=== PATIENT | female | born 1940 | race Caucasian/White ===

== ENCOUNTER 2022-09-03 13:34 | Outpatient (OUT) | payer MEDICARE, OTHER, SELFPAY ==
[2022-09-03 14:23] LABS: Sodium Urine Random 97 mmol/L (30-90)
[2022-09-04 14:09] LABS: ACTH, Plasma 9.6 pg/mL (7.2-63.3)
[2022-09-10 04:12] LABS: Osmolality, Urine 423 mOsmol/kg (.)
== END 2022-09-03 13:35 ==
LOC: LAB 13:45
PROVIDERS: PCP Nurse Practitioner; Visit Provider Nurse Practitioner
DX: E87.1 Hypo-osmolality and hyponatremia (principal)
CPT/HCPCS: 36415; 82024; 82533; 83935; 84300

== ENCOUNTER 2022-10-03 07:17 | Outpatient (OUT) | payer MEDICARE, OTHER, SELFPAY ==
[2022-10-03 07:50] LABS: Anion Gap 15.5; BUN Creatinine Ratio 30.7; Calcium 9.5 mg/dL (8.5-10.1); Carbon Dioxide 23.8 mmol/L (21.0-32.0); Chloride 101 mmol/L (98-107); Estimated GFR (African America >60 (>=60); Estimated GFR (Non-African Ame >60 (>=60); Glucose 149 mg/dL (74-106); Potassium 4.3 mmol/L (3.5-5.1); Sodium 136 mmol/L (136-145)
--- NOTE | 2022-10-03 09:04 | CT_ITS ---
[address] [address] Patient Name: JAMARI ELIZALDE MRN: [id number] date: 1940 Sex: F Assigned Patient Location: LAB Current Patient Location: LAB Accession/Order Number: [id number] Exam Date: 10/03/2022 10:55 Report Date: 10/03/2022 18:24 At the request of: SYEDA CLEMENTE Procedure: CT abdomen w con CT abdomen w con CLINICAL HISTORY: WEIGHT LOSS UNINTENTIONAL R63.4 COMPARISON: 01/16/2022. TECHNIQUE: Axial CT from lung bases through the pubic symphysis following the injection of 100 mL of Omnipaque 300 iodinated contrast material. Oral contrast was administered. Coronal and sagittal reconstructions generated. Dose reduction techniques were achieved by using automated exposure control and/or adjustment of mA and/or kV according to patient size and/or use of iterative reconstruction technique. FINDINGS: Normal heart size with coronary artery calcifications. Large periesophageal hernia. Liver and spleen normal in size. The caudate lobe cyst of the liver is stable and benign. Normal sized right adrenal gland. Left adrenal adenoma is unchanged from prior. Contracted gallbladder with suspect tiny stones and/or sludge but no surrounding inflammation seen. Normal pancreatic enhancement with no peripancreatic edema. A few tiny renal cysts. Symmetric bilateral renal excretion of contrast without hydronephrosis. Atherosclerotic aorta without aneurysm. No adenopathy. GI tract nondilated without obstruction. Moderate to large retained stool throughout much of the colon. No significant inflammatory change or ascites. Hysterectomy. Ribeiro catheter decompresses urinary bladder. Lumbar spondylosis without acute bony process. IMPRESSION: Prominent retained stool in much of the colon. No bowel obstruction or free air. No significant inflammatory change. Large periesophageal hernia. Contracted gallbladder with tiny stones and/or sludge. Unchanged left adrenal nodule probable adenoma. Hysterectomy. Ribeiro catheter in the bladder. Electronically authenticated by: STEVE MARTINO Date: 10/03/2022 18:24
--- NOTE | 2022-10-03 09:04 | CT_ITS ---
The [address] [address] Patient Name: JAMARI ELIZALDE MRN: [id number] date: 1940 Sex: F Assigned Patient Location: LAB Current Patient Location: LAB Accession/Order Number: [id number] Exam Date: 10/03/2022 10:55 Report Date: 10/03/2022 18:16 At the request of: SYEDA CLEMENTE Procedure: CT chest w con CT chest w con CLINICAL HISTORY: Weight loss, unintentional. R63.4 COMPARISON: 01/16/2022 chest x-rays. TECHNIQUE: Axial CT images obtained from lung apices through lung bases, following intravenous administration of 100 mL of Omnipaque 300. Coronal and sagittal reconstructions performed. Dose reduction techniques were achieved by using automated exposure control and/or adjustment of mA and/or kV according to patient size and/or use of iterative reconstruction technique. FINDINGS: Lower thyroid unremarkable. No axillary adenopathy. Thoracic spondylosis without acute bony process. Visualized upper abdomen with cyst in the caudate lobe. Large retained stool in the left upper quadrant. Nodularity left adrenal gland similar to 2020. Large periesophageal hernia. Normal heart and great vessel sizes. Coronary artery calcifications. No pericardial effusion. No mediastinal or hilar adenopathy. Lungs with mild bronchiectasis at the bases and minimal interstitial thickening but no honeycombing. Findings are consistent with UIP/pulmonary fibrosis at this time. No pulmonary emphysema. No consolidation, effusion or dominant mass lesion. IMPRESSION: Minimal chronic interstitial change and scarring in the lungs with mild bronchiectasis but not consistent with UIP/pulmonary fibrosis. No dominant mass lesion or acute process. Large paraesophageal hernia. Electronically authenticated by: STEVE MARTINO Date: 10/03/2022 18:16
[2022-10-04 08:08] LABS: DHEA-Sulfate 49.5 ug/dL (13.9-142.8)
[2022-10-06 04:07] LABS: Aldosterone LCMS, Serum 4.7 ng/dL (0.0-30.0)
[2022-10-08 14:09] LABS: DHEA, Serum 67 ng/dL (21-402)
[2022-10-18 16:07] LABS: Renin Activity, Plasma 1.497 ng/mL/hr (0.167-5.380)
== END 2022-10-03 07:18 | disposition home or self-care (01) ==
LOC: LAB 07:17
PROVIDERS: PCP Nurse Practitioner; Visit Provider Nurse Practitioner
DX: R63.4 Abnormal weight loss (principal); E87.1 Hypo-osmolality and hyponatremia; K59.00 Constipation, unspecified; K44.9 Diaphragmatic hernia without obstruction or gangrene; K80.20 Calculus of gallbladder without cholecystitis without obstruction; E27.9 Disorder of adrenal gland, unspecified; Z90.710 Acquired absence of both cervix and uterus; Z96.0 Presence of urogenital implants
CPT/HCPCS: 36415; 71260; 74160; 80048; 82088; 82533; 82626; 82627; 84244; Q9967

== ENCOUNTER 2023-02-22 08:51 | Outpatient (OUT) | payer MEDICARE, OTHER, SELFPAY ==
--- NOTE | 2023-02-22 09:21 | MM_ITS ---
Patient Name: JAMARI ELIZALDE MR#: [id number] : 1940 Exam Date: 02/22/2023 Ordering Doctor: JIM Tobar CNP RADIOLOGY REPORT PROCEDURE: MM TOMOSYNTHESIS SCREENING BI COMPARISON: MG MAMM SCREEN 3D CATRACHITO CAD, 10/29/2021. MG MAMM SCREEN CATRACHITO W CAD, 09/20/2019. MG MAMM SCREEN CATRACHITO W CAD, 03/02/2017. MG MAMM CATRACHITO SCRN W CAD DIG, 10/31/2012. INDICATIONS: Screening Calculator Name NCI Breast Cancer Risk Assessment Tool 5 Year Breast Cancer Risk 4.10% Lifetime Breast Cancer Risk 5.90% Personal Breast Cancer No Personal Ovarian Cancer No Treatments None Family Cancers Mother with breast cancer at age 70. LOCATION: [facility] BREAST COMPOSITION: Heterogeneously dense,which may obscure small masses. FINDINGS: DIAGNOSTIC CATEGORY 2--BENIGN FINDING: RIGHT BREAST: No significant suspicious finding. Scattered benign-appearing calcifications are present. No significant change has occurred. LEFT BREAST: No significant suspicious finding. Scattered benign-appearing calcifications are present. Stable, chronic asymmetries upper outer quadrant. No significant change has occurred. RECOMMENDATIONS: ROUTINE MAMMOGRAM AND CLINICAL EVALUATION IN 12 MONTHS. PLEASE NOTE: A NORMAL MAMMOGRAM DOES NOT EXCLUDE THE POSSIBILITY OF BREAST CANCER. A CLINICALLY SUSPICIOUS PALPABLE LUMP SHOULD BE BIOPSIED. Dictated by: Ankit Malloy M.D. on 02/22/2023 at 14:29 Approved by: Ankit Malloy M.D. on 02/22/2023 at 14:32
[2023-02-22 09:27] LABS: Alanine Aminotransferase 20 U/L (14-59); Albumin Level 3.9 g/dL (3.4-5.0); Alkaline Phosphatase 136 U/L (46-116); Anion Gap 15.1; Aspartate Amino Transferase 11 U/L (15-37); BUN Creatinine Ratio 28.6; Bilirubin Direct 0.1 mg/dL (0.0-0.2); Bilirubin Total 0.4 mg/dL (0.2-1.0); Carbon Dioxide 26.3 mmol/L (21.0-32.0); Chloride 102 mmol/L (98-107); Chol HDL Ratio 3.8; Cholesterol 280 mg/dL (<=200); Estimated GFR (African America >60 (>=60); Estimated GFR (Non-African Ame >60 (>=60); Globulin 4.1 g/dL; Glucose 147 mg/dL (74-106); HDL Cholesterol 73 mg/dL (40-60); Potassium 4.4 mmol/L (3.5-5.1); Sodium 139 mmol/L (136-145); Triglycerides 158 mg/dL (<=150); VLDL CHOLESTEROL 31.6 mg/dL
[2023-02-22 09:31] LABS: Estimated Average Glucose 140 mg/dL; Glycohemoglobin A1C 6.5 % (4.5-6.2)
== END 2023-02-22 08:52 | disposition home or self-care (01) ==
LOC: LAB 08:51
PROVIDERS: PCP Nurse Practitioner; Visit Provider Nurse Practitioner
DX: E78.5 Hyperlipidemia, unspecified (principal); E11.9 Type 2 diabetes mellitus without complications; Z12.31 Encounter for screening mammogram for malignant neoplasm of breast; Z80.3 Family history of malignant neoplasm of breast
CPT/HCPCS: 36415; 77063; 77067; 80048; 80061; 80076; 83036

== ENCOUNTER 2023-06-13 11:48 | Inpatient (IN) | payer MEDICARE, OTHER, SELFPAY ==
[2023-06-13] VITALS (19 sets, daily range): BP systolic 129–150; BP diastolic 65–82; PULSE 98–109; RESP 18–26; TEMP 36.2–36.4; O2SAT 85–96; BMI 24.9; BMI 25.2
--- NOTE | 2023-06-13 11:54 | ECG_ITS ---
The [facility] Test Date: 2023-06-13 Pat Name: JAMARI ELIZALDE Department: Room: - Gender: Female [employer]: : 1940 Requested By: SYEDA CLEMENTE Order Number: [id number] Reading MD: MARILYN THOMPSON Measurements Intervals [place] Rate: 110 P: 53 MO: 178 QRS: 103 QRSD: 74 T: 67 QT: 326 QTc: 391 Interpretive Statements 1120 Sinus tachycardia [address] depression [address] & Tw[place] abnormality, can't exclude inferolateral ischemia 7100 Abnormal right axis deviation 9140 abnormal rhythm ECG Electronically Signed On 06-13-2023 17:27:18 EDT by MARILYN THOMPSON
--- NOTE | 2023-06-13 11:54 | ED_ITS ---
HPI - General Adult General Chief complaint: Shortness of Breath/Dyspnea Stated complaint: SOB Time Seen by Provider: 06/13/23 11:50 History of Present Illness HPI narrative: 83-year-old female presents for shortness of breath. She states that during the night her mid back was hurting and she took an Aleve and that went away but then she was short of breath. Paramedics brought her in and they placed her on oxygen and she felt better. She is not complaining of chest pain or ankle s welling. Related Data Home Medications Medication Instructions Recorded Confirmed amantadine HCl 100 mg capsule mg 06/13/23 amlodipine 2.5 mg tablet mg 06/13/23 aripiprazole 2 mg tablet mg 06/13/23 benztropine 0.5 mg tablet mg 06/13/23 biotin 1 mg capsule 1 mg PO DAILY 06/13/23 06/13/23 ciprofloxacin HCl 250 mg tablet mg 06/13/23 dextroamphetamine-amphetamine 15 06/13/23 mg tablet lisinopril 20 mg tablet mg 06/13/23 lorazepam 0.5 mg tablet mg 06/13/23 metformin 500 mg tablet,extended mg PO 06/13/23 release 24 hr trazodone 150 mg tablet mg 06/13/23 Allergies Allergy/AdvReac Type Severity Reaction Status Date / Time No Known Drug Allergies Allergy Verified 06/13/23 12:00 Review of Systems ROS Narrative A ten point review of systems is negative except as noted above. Exam Narrative Exam Narrative: Nurses note and vital signs reviewed and patient is not hypoxic. General: The patient appears in no apparent distress. Patient is resting comfortably on cart. Skin: Warm, dry, no pallor noted. There is no rash noted. Head: Normocephalic, atraumatic Eye: Normal conjunctiva, no drainage Ears, Nose, Mouth, and Throat: oral mucosa is moist. Nares patent. Cardiovascular: Regular Rate and Rhythm Respiratory: Bilateral rales at the bases, breath sounds Back: non-tender GI: Soft and nontender Musculoskeletal: The patient has no evidence of calf tenderness, no pitting edema, symmetrical pulses noted bilaterally Neurological: A&O, normal speech Psychiatric: Cooperative Constitutional Vital Signs, click to edit/add: Last Vital Signs Temp 97.4 F L 06/13/23 11:50 Pulse 109 H 06/13/23 11:50 Resp 26 H 06/13/23 11:50 BP 150/82 H 06/13/23 11:50 Pulse Ox 95 06/13/23 11:50 O2 Del Method Room Air 06/13/23 11:50 Course Vital Signs Vital signs: Vital Signs Pulse Oximetry 85 L 06/13/23 10:55 Temperature 97.4 F L 06/13/23 11:50 Pulse Rate 109 H 06/13/23 11:50 Respiratory Rate 26 H 06/13/23 11:50 Blood Pressure 150/82 H 06/13/23 11:50 Pulse Oximetry 95 06/13/23 11:50 Oxygen Delivery Method Room Air 06/13/23 11:50 Medical Decision Making MDM Narrative Medical decision making narrative: Pneumonia is identified on the chest x-ray per radiologist. COVID and influenza testing are negative. White count is 14,000. Blood cultures are obtained. Calcitonin and lactic acid are pending. She was given IV Rocephin and Zithromax and is being admitted. Treatment diagnosis and disposition were discussed with the patient and her family. Differential Diagnosis Differential Diagnosis: Pneumonia, COVID, influenza Lab Data Lab results reviewed: Yes I reviewed the patient's lab results Labs: Lab Results 06/13/23 06/13/23 Range/Units 12:02 12:06 WBC 14.6 H (4.0-11.0) 10^3/uL RBC 4.45 (4.20-5.40) 10^6/uL Hgb 13.1 (12.0-16.0) g/dL Hct 42.0 (36.0-48.0) % MCV 94.4 (81.0-99.0) fL MCH 29.4 (26.7-34.0) pg MCHC 31.2 (29.9-35.2) g/dL RDW 14.6 (11.0-15.0) % Plt Count 324 (150-450) 10^3/uL MPV 8.6 L (9.5-13.5) fL Neut % (Auto) 85.9 H (43.0-75.0) % Lymph % (Auto) 8.2 L (20.5-60.0) % [place] % (Auto) 4.2 (1.7-12.0) % Eos % (Auto) 1.1 (0.9-7.0) % Baso % (Auto) 0.2 (0.2-2.0) % Neut # (Auto) 12.5 H (1.4-6.5) 10^3/uL Lymph # (Auto) 1.2 (1.2-3.8) 10^3/uL [place] # (Auto) 0.6 (0.3-0.8) 10^3/uL Eos # (Auto) 0.2 (0.0-0.7) 10^3/uL Baso # (Auto) 0.0 (0.0-0.1) 10^3/uL Abs Immat Gran (auto) 0.06 H (0.00-0.03) 10^3/uL Imm/Tot Granulo (auto) 0.4 (0.0-0.5) % Sodium 130 L (136-145) mmol/L Potassium 5.5 H (3.5-5.1) mmol/L Chloride 97 L (98-107) mmol/L Carbon Dioxide 25.0 (21.0-32.0) mmol/L Anion Gap 13.5 BUN 20.0 H (7.0-18.0) mg/dL Creatinine 0.93 (0.55-1.02) mg/dL Est GFR ( Amer) >60 (>=60) Est GFR (Non-Af Amer) 58 L (>=60) BUN/Creatinine Ratio 21.5 Glucose 257 H (74-106) mg/dL Calcium 8.8 (8.5-10.1) mg/dL Troponin I High Sens 34.1 (4.0-51.3) pg/mL NT-Pro-B Natriuret Pep 8894.0 H* (<=1800.0) pg/mL Influenza Type A Ag Negative Influenza Type B Ag Negative SARS-CoV-2 Ag (CV2AG) Negative (NEGATIVE) Imaging Data Chest x-ray: Radiologist's impression: ITS Impressions Chest X-Ray 06/13/23 11:54 Impression: Bilateral perihilar and lower lobes airspace opacities, likely representing multifocal/aspiration pneumonia. Electronically authenticated by: SUE BLOOD Date: 06/13/2023 12:47 ECG Data Attestation: I personally reviewed and interpreted this ECG as follows: (EKG on my interpretation shows sinus tachycardia with a rate of 110.) Discharge Plan Discharge Chief Complaint: Shortness of Breath/Dyspnea Clinical Impression: Pneumonia Patient Disposition: Admitted As Inpatient Time of Disposition Decision: 13:32 Condition: Good
--- NOTE | 2023-06-13 11:54 | XR_ITS ---
The [address] [address] Patient Name: JAMARI ELIZALDE MRN: [id number] date: 1940 Sex: F Assigned Patient Location: ER Current Patient Location: ER Accession/Order Number: [id number] Exam Date: 06/13/2023 12:05 Report Date: 06/13/2023 12:47 At the request of: YAZMIN GARCIA Procedure: XR chest 1V EXAM: XR chest 1V HISTORY: SOB COMPARISON: 10/03/2022 TECHNIQUE: Chest X-ray AP, 1 view FINDINGS: Support devices: None. Lungs/pleura: No pneumothorax. Bilateral perihilar and lower lobes airspace opacities, likely representing multifocal/aspiration pneumonia. Heart and mediastinum: Normal contours. Bones: No acute abnormality identified. Moderate hiatal hernia. XR/XR chest 1V Impression: Bilateral perihilar and lower lobes airspace opacities, likely representing multifocal/aspiration pneumonia. Electronically authenticated by: SUE BLOOD Date: 06/13/2023 12:47
--- OUTSIDE RECORDS SUMMARY | 2023-06-13 12:08 | XMS_ITS | CCD ---
Author Name Unknown Address [address] [place] [address] Organization [facility] Care Team Providers Care Music Supervisor Name Role Phone Pipe Sanchez Attending Provider Kilo Chavez Primary Care Provider [phone] Kilo Chavez II Primary Care Provider Kilo Chavez II Unavailable MARU Chavez Primary Care Provider MD Johann Dolan Attending Provider Unavailable Primary Care Provider Unavailabl e NO FAMILY, PHYSICIAN Primary Care Provider Unava MD Oz Rizvi Jr Emergency Provider BRENDA, CARY Referring Unavailable AHMED, IRFAN Referring Unavailable BRENDA, CARY Referring Unavailable BREDNA, CARY Referring Unavailable BRENDA, CARY Referring Unavailable BRENDA, CARY Referring Unavailable FOZIA TOBAR Primary Care Physician NO FAMILY, PHYSICIAN Primary Care Provider Unava MD Oz Rizvi Jr Emergency Provider MD Johann Dolan Attending Provider [phone] AICHHOLZ, LODGE SALES ASSOCIATE FOZIA Admitting Unavailable AICHHOLZ, LODGE SALES ASSOCIATE FOZIA Primary Care Unavailable AICHHOLZ, LODGE SALES ASSOCIATE FOZIA Attending Unavailable AICHHOLZ, LODGE SALES ASSOCIATE FOZIA Consulting Unavailable AICHHOLZ, LODGE SALES ASSOCIATE FOZIA Admitting Unavailable AICHHOLZ, LODGE SALES ASSOCIATE FOZIA Attending Unavailable AICHHOLZ, LODGE SALES ASSOCIATE FOZIA Consulting Unavailable AICHHOLZ, LODGE SALES ASSOCIATE FOZIA Primary Care Unavailable AICHHOLZ, LODGE SALES ASSOCIATE FOZIA Primary Care Unavailable SHAIKH Kurt PRICE Attending Unavailable SHAIKH Kurt PRICE Admitting Unavailable DR CECILY FRASER Consulting Unavailable ESTEBAN, DR LORETTA Dillard Consulting Unavailable LIBIA JACOB Consulting Unavailable LENA MARTINEZ Consulting Unavailable SHAIKH Kurt PRICE Consulting Unavailable JOHANN PARKS Consulting Unavailable SHAUNNA, DR DENIS Primary Care Unavailable SHAUNNA, DR DENIS Consulting Unavailable SHAUNNA, DR DENIS Attending Unavailable SHAUNNA, DR DENIS Admitting Unavailable DR ERIC BERRY Consulting Unavailable AICHHOLZ, LODGE SALES ASSOCIATE FOZIA Admitting Unavailable AICHHOLZ, LODGE SALES ASSOCIATE FOZIA Attending Unavailable AICHHOLZ, LODGE SALES ASSOCIATE FOZIA Consulting Unavailable AICHHOLZ, LODGE SALES ASSOCIATE FOZIA Primary Care Unavailable AICHHOLZ, LODGE SALES ASSOCIATE FOZIA Primary Care Unavailable AICHHOLZ, LODGE SALES ASSOCIATE FOZIA Attending Unavailable AICHHOLZ, LODGE SALES ASSOCIATE FOZIA Consulting Unavailable AICHHOLZ, LODGE SALES ASSOCIATE FOZIA Admitting Unavailable SANDYER, DR ERIC Valero Consulting Unavailable AICHHOLZ, LODGE SALES ASSOCIATE FOZIA Primary Care Unavailable AICHHOLZ, LODGE SALES ASSOCIATE FOZIA Consulting Unavailable AICHHOLZ, LODGE SALES ASSOCIATE FOZIA Attending Unavailable AICHHOLZ, LODGE SALES ASSOCIATE FOZIA Admitting Unavailable AICHHOLZ, LODGE SALES ASSOCIATE FOZIA Admitting Unavailable AICHHOLZ, LODGE SALES ASSOCIATE FOZIA Attending Unavailable AICHHOLZ, LODGE SALES ASSOCIATE FOZIA Referring Unavailable AICHHOLZ, LODGE SALES ASSOCIATE FOZIA Consulting Unavailable AICHHOLZ, LODGE SALES ASSOCIATE FOZIA Primary Care Unavailable ZIEBER, DR ERIC Valero Consulting Unavailable AICHHOLZ, LODGE SALES ASSOCIATE FOZIA Primary Care Unavailable AICHHOLZ, LODGE SALES ASSOCIATE FOZIA Consulting Unavailable AICHHOLZ, LODGE SALES ASSOCIATE FOZIA Attending Unavailable AICHHOLZ, LODGE SALES ASSOCIATE FOZIA Admitting Unavailable AICHHOLZ, LODGE SALES ASSOCIATE FOZIA Primary Care Unavailable AICHHOLZ, LODGE SALES ASSOCIATE FOZIA Consulting Unavailable AICHHOLZ, LODGE SALES ASSOCIATE FOZIA Attending Unavailable AICHHOLZ, LODGE SALES ASSOCIATE FOZIA Admitting Unavailable AICHHOLZ, LODGE SALES ASSOCIATE FOZIA Primary Care Unavailable ADDY MEHTA Attending Unavailable DR JOHANN DOLAN Consulting Unavailable ADDY MEHTA Admitting Unavailable AICHHOLZ, LODGE SALES ASSOCIATE FOZIA Primary Care Unavailable AICHHOLZ, LODGE SALES ASSOCIATE FOZIA Consulting Unavailable AICHHOLZ, LODGE SALES ASSOCIATE FOZIA Attending Unavailable AICHHOLZ, LODGE SALES ASSOCIATE FOZIA Admitting Unavailable AICHHOLZ, LODGE SALES ASSOCIATE FOZIA Primary Care Unavailable AICHHOLZ, LODGE SALES ASSOCIATE FOZIA Consulting Unavailable AICHHOLZ, LODGE SALES ASSOCIATE FOZIA Attending Unavailable AICHHOLZ, LODGE SALES ASSOCIATE FOZIA Admitting Unavailable AICHHOLZ, LODGE SALES ASSOCIATE FOZIA Primary Care Unavailable AICHHOLZ, LODGE SALES ASSOCIATE FOZIA Consulting Unavailable AICHHOLZ, LODGE SALES ASSOCIATE FOZIA Attending Unavailable AICHHOLZ, LODGE SALES ASSOCIATE FOZIA Admitting Unavailable DR ERIC BERRY Consulting Unavailable AICHHOLZ, LODGE SALES ASSOCIATE FOZIA Primary Care Unavailable AICHHOLZ, LODGE SALES ASSOCIATE FOZIA Consulting Unavailable AICHHOLZ, LODGE SALES ASSOCIATE FOZIA Attending Unavailable AICHHOLZ, LODGE SALES ASSOCIATE FOZIA Admitting Unavailable AICHHOLZ, LODGE SALES ASSOCIATE FOZIA Primary Care Unavailable AICHHOLZ, LODGE SALES ASSOCIATE FOZIA Attending Unavailable AICHHOLZ, LODGE SALES ASSOCIATE FOZIA Consulting Unavailable AICHHOLZ, LODGE SALES ASSOCIATE FOZIA Admitting Unavailable NO FAMILY, PHYSICIAN Primary Care Provider Unava MD Pipe Jenkins Attending Provider Moisesaimee, Fozia J Primary Care Provider Johann Dolan Admitting Unavailable NO FAMILY, PHYSICIAN Primary Care Unavailable Johann Dolan Attending Unavailable Johann Dolan Attending Unavailable Johann Dolan Admitting Unavailable Kilo Chavez Primary Care Unavailable Oz Beckford Jr Admitting Unavailable NO FAMILY, PHYSICIAN Primary Care Unavailable Oz Beckford Jr Attending Unavailable Pipe Sanchez Attending Unavailabl e Pipe Sanchez Admitting Unavailabl e Aichholz, Fozia J Primary Care Unavailable AICHHOLZ, FOZIA Attending Unavailable JEFF MEDELLIN Attending Unavailable LANDYSEBASTIÁN DAVEY Attending Unavailable Lue, Ivana MShilpa Attending Unavailable LANDYSEBASTIÁN Attending Unavailable Lue, Ivana MShilpa Attending Unavailable Jose Manuel SWAIN Attending Unavailable LANDYSEBASTIÁN Attending Unavailable Lue, Ivana M. Attending Unavailable LANDYSEBASTIÁN E Attending Unavailable LANDY, SEBASTIÁN E Attending Unavailable Lue, Ivana M. Attending Unavailable Lue, Ivana M. Attending Unavailable Lue, Ivana M. Attending Unavailable Lue, Ivana M. Attending Unavailable Lue, Ivana M. Referring Unavailable Lue, Ivana M. Admitting Unavailable Lue, Ivana M. Attending Unavailable Lue, Ivana M. Referring Unavailable Lue, Ivana M. Admitting Unavailable Lue, Ivana M. Attending Unavailable LANDYSEBASTIÁN DAVEY Attending Unavailable LANDYJOSESEBASTIÁN E Attending Unavailable LANDYJOSESEBASTIÁN E Attending Unavailable LANDY SEBASTIÁN E Attending Unavailable LANDY SEBASTIÁN E Attending Unavailable LANDY SEBASTIÁN E Attending Unavailable Ivana Hernandez Attending Unavailable Ivana Hernandez Attending Unavailable Allergies Allergy Classification Reported Allergen(s) Allergy Type Date of Onset Reaction(s) Facility (1 source) Adhesive agent Drug Allergy 9 [facility] (13 sources) Aspirin; 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: [aspirin] Drug Allergy 9 GI Upset, Gastritis (disorder) [facility] (1 source) Penicillins Drug Allergy 9 Rash [facility] (12 sources) Adhesive Tape; 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: [Tape] Drug allergy Blister - unit of product usage (qualifier value) [facility] (12 sources) Penicillin; 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: [penicillin] Drug Allergy Cutaneous eruption (morphologic abnormality) [facility] (1 source) No Known Medication Allergies; 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: [No Known Medication Allergies] Propensity to adverse reactions (disorder) [facility] Repository NEGATED: Highlighted row has been ruled out! (1 source) Drug allergy [facility] NEGATED: Highlighted row has been ruled out! (1 source) Drug allergy [facility] NEGATED: Highlighted row has been ruled out! (1 source) Drug allergy [facility] NEGATED: Highlighted row has been ruled out! (1 source) Drug allergy [facility] NEGATED: Highlighted row has been ruled out! (1 source) Drug allergy [facility] NEGATED: Highlighted row has been ruled out! (1 source) Drug allergy [facility] NEGATED: Highlighted row has been ruled out! (1 source) Drug allergy [facility] NEGATED: Highlighted row has been ruled out! (1 source) Drug allergy [facility] NEGATED: Highlighted row has been ruled out! (1 source) Drug allergy [facility] NEGATED: Highlighted row has been ruled out! (1 source) Drug allergy [facility] NEGATED: Highlighted row has been ruled out! (1 source) Drug allergy [facility] Medications Current Medications Medication Drug Class(es) Dates Sig (Normalized) Sig (Original) ALPRAZolam 0.5 mg oral tablet (16 sources) Benzodiazepine Start: 11-28-2020 take 0.5 mg by mouth three times daily Alprazolam Active 0.5 MG PO Three times daily November 28, 2020 12:00am Start: 02-06-2019 take 1 tablet by tho th twice daily as needed for anxiety alprazolam 0.25 mg Tab 0.25 mg = 1 tab(s), Oral, BID, PRN for anxiety, # 180 tab(s), Refills(s) 1, Pharmacy: [facility] Start Date: 02/06/19 Status: Ordered Comment on above: Take 0.5 mg by mouth three times daily as needed. amantadine hydrochloride 100 mg oral capsule (12 sources) Influenza A M2 Protein Inhibitor Start: 09-25-2022 take 100 mg by mouth once daily Amantadine Hcl Active 100 MG PO Daily September 25, 2022 12:00am Start: 07-01-2022 take 1 mg by mouth twice daily amantadine 100 mg Cap mg cap(s), Oral, BID, Refills(s) 0 Start Date: 07/01/22 Status: Ordered amLODIPine 2.5 mg oral tablet (16 sources) Dihydropyridine Calcium Channel Richy Start: 08-04-2018 Norvasc 2.5 mg Tab Refills(s) 0 Start Date: 08/04/18 Status: Ordered Comment on above: once daily. ARIPiprazole 2 mg oral tablet (12 sources) Atypical Antipsychotic Start: 07-01-2022 take 1 mg by mouth once daily Abilify 2 mg Tab mg tab(s), Oral, Daily, Refills(s) 0 Start Date: 07/01/22 Status: Ordered aspirin 81 mg chewable tablet (14 sources) Platelet Aggregation Inhibitor, Nonsteroidal Anti-inflammatory Drug Start: 07-01-2022 aspirin 81 mg Chew Tab mg tab(s), Chewed, Daily, Refills(s) 0 Start Date: 07/01/22 Status: Ordered Start: 06-02-2022 take 81 mg by mouth once daily Aspirin Active 81 MG PO Daily June 02, 2022 1:00am biotin 1 mg oral capsule (1 source) Start: 09-25-2022 take 1 mg by mouth once daily Biotin Active 1 MG PO Daily September 25, 2022 12:00am ciprofloxacin 250 mg oral tablet (8 sources) Quinolone Antimicrobial Start: 08-07-2022 take 1 tablet by mouth every month Cipro 250 mg Tab 250 mg = 1 tab(s), Oral, Once, Once a month, morning of ribeiro exchange, # 6 tab(s), Refills(s) 0, Pharmacy: [facility] [id number], 165, cm, 08/07/22 11:07:00 EDT, Height/Length Dosing, 68, kg, 08/07/22 11:07:00 EDT, Weight Dosing Start Date: 08/07/22 Status: Ordered Cranberry (12 sources) Non-Standardized Food Allergenic Extract, Non-Standardized Plant Allergenic Extract Start: 09-25-2022 take 400 mg by mouth once daily Cranberry Active 400 MG PO Daily September 25, 2022 12:00am administer with a meal Start: 07-01-2022 cranberry Refi ll(s) 0 Start Date: 07/01/22 Status: Ordered docusate sodium 100 mg oral tablet (13 sources) Start: 09-25-2022 take 100 mg by mouth twice daily Docusate Sodium Active 100 MG PO Twice daily September 25, 2022 12:00am Start: 07-01-2022 take 1 capsule by mo [facility] twice daily as needed for constipation docusate sodium 100 mg Cap 100 mg = 1 cap(s), Oral, BID, PRN for constipation, # 20 cap(s), Refills(s) 0 Start Date: 07/01/22 Status: Ordered take 1 tablet by tho th every twenty-four hours as needed Docusate Sodium 100 mg tab Take 1 tablet by mouth at bedtime as needed. 0 Active Comment on above: Take 1 tablet by tho th at bedtime as needed. glimepiride 1 mg oral tablet (14 sources) Sulfonylurea Start: 06-02-19 take 1 tablet by mouth once daily glimepiride 1 mg Tab mg tab(s), Oral, Daily, Refills(s) 0 Start Date: 07/01/22 Status: Ordered lidocaine 0.05 mg/mg medicated patch (12 sources) Antiarrhythmic, Amide Local Anesthetic Start: 09-26-19 apply 1 dose topically once daily Lidocaine Active 1 PATCH TOPICAL Daily September 25, 2022 12:00am leave on most painful area for up to 12 hrs Start: 07-01-2022 lidocaine 5% p atch Topical, Daily, Refill(s) 0 Start Date: 07/01/22 Status: Ordered lisinopril 20 mg oral tablet (16 sources) Angiotensin Converting Enzyme Inhibitor Start: 07-18-2018 lisinopril 20 mg Tab Refills(s) 0 Start Date: 08/04/18 Status: Ordered Comment on above: Take 20 mg by mouth once daily. LORazepam 0.5 mg oral tablet (11 sources) Benzodiazepine Start: 07-01-2022 take 2 tablets by mouth every eight hours Ativan 0.5 mg Tab mg tab(s), Oral, q8hr, Refills(s) 0 Start Date: 07/01/22 Status: Ordered melatonin 10 mg oral tablet (12 sources) Start: 07-01-2022 take 1 mg by mouth once daily at bedtime melatonin 10 mg oral tablet mg tab(s), Oral, Once a day (at bedtime), Refills(s) 0 Start Date: 07/01/22 Status: Ordered metFORMIN hydrochloride 500 mg oral tablet (16 sources) Biguanide Start: 07-01-2022 take 1 mg by mouth once daily metformin 500 mg ER Tab mg tab(s), Oral, Daily, Refills(s) 0 Start Date: 07/01/22 Status: Ordered Start: 08-07-2020 take 1000 mg by mouth once joselin ly Metformin Active 1000 MG PO Daily August 07, 2020 12:00am take 1 tablet by tho th once daily at breakfast metFORMIN ER (GLUMETZA) 500 mg 24 hr tablet Take 500 mg by mouth daily with breakfast. 0 Active Comment on above: Take 500 mg by mouth daily with breakfast. omeprazole 20 mg delayed release oral capsule (19 sources) Proton Pump Inhibitor Start: 06-02-2022 Omeprazole Active 20 MG PO As Directed June 02, 2022 1:00am 5pm Start: 07-14-2018 omeprazole 40 mg Cap-DR Refills(s) 0 Start Date: 08/04/18 Status: Ordered Comment on above: Take 40 mg by mouth once daily. ondansetron 4 mg oral tablet (12 sources) Serotonin-3 Receptor Antagonist Start: 09-25-2022 take 4 mg by mouth every six hours Ondansetron Hcl Active 4 MG PO Q6H September 25, 2022 12:00am Start: 07-01-2022 take 1 mg by mouth e very eight hours Zofran 4 mg Tab mg tab(s), Oral, q8hr, Refills(s) 0 Start Date: 07/01/22 Status: Ordered oxybutynin chloride 5 mg oral tablet (2 sources) Cholinergic Muscarinic Antagonist Start: 01-19-2023 take 1 tablet by mouth three times daily as needed oxybutynin 5 mg Tab 5 mg = 1 tab(s), Oral, TID, PRN for urinary discomfort, # 90 tab(s), Refills(s) 3, Pharmacy: [facility] [id number], 165, cm, 11/25/22 9:01:00 EDT, Height/Length Dosing, 68, kg, 11/25/22 9:01:00 EDT, Weight Dosing Start Date: 01/19/23 Status: Ordered sertraline 50 mg oral tablet (17 sources) Serotonin Reuptake Inhibitor Start: 09-25-2022 take 50 mg by mouth once daily Sertraline Active 50 MG PO Daily September 25, 2022 12:00am Start: 02-06-2019 sertraline 25 mg Tab 25 mg = 1 tab(s), Oral, Daily, total daily dose is 125mg, # 30 tab(s), Refills(s) 0, Pharmacy: [id number] Start Date: 02/06/19 Status: Ordered Start: 07-18-2018 End: 06-02-2022 take 100 mg by mouth once daily Sertraline Discontinued 100 MG PO Daily August 07, 2020 12:00am June 02, 2022 8:21pm Comment on above: Take 100 mg by mouth once daily. sodium chloride 1000 mg oral tablet (1 source) Start: 09-25-2022 take 1000 mg by mouth twice daily Sodium Chloride Active 1000 MG PO Twice daily September 25, 2022 12:00am traZODone hydrochloride 100 mg oral tablet (12 sources) Serotonin Reuptake Inhibitor Start: 07-01-2022 traZODONE 100 mg Tab mg tab(s), Oral, Refills(s) 0 Start Date: 07/01/22 Status: Ordered Completed/Discontinued Medications Medication Drug Class(es) Dates Sig (Normalized) Sig (Original) diclofenac sodium 0.01 mg/mg topical gel (1 source) Nonsteroidal Anti-inflammatory Drug Start: 05-29-2019 diclofenac sodium (VOLTAREN) 1 % topical gel Apply to affected area. 0 05/29/2019 Active Comment on above: Apply to affected ar ea. ferrous sulfate 325 mg oral tablet (5 sources) Start: 09-10-2020 End: 06-02-2022 take 325 mg by mouth once daily Ferrous Sulfate Discontinued 325 MG PO Daily September 10, 2020 12:00am June 02, 2022 8:21pm Comment on above: Take 325 mg by mouth daily with breakfast. ibuprofen 200 mg oral capsule (1 source) Nonsteroidal Anti-inflammatory Drug Ibuprofen 200 mg cap Take by mouth as needed. 0 Active Comment on above: Take by mouth as nee ded. naproxen sodium 220 mg oral capsule (1 source) Nonsteroidal Anti-inflammatory Drug naproxen sodium 220 mg cap Take by mouth as needed. 0 Active Comment on above: Take by mouth as nee ded. risperiDONE 1 mg oral tablet (15 sources) Atypical Antipsychotic Start: 06-02-2022 End: 09-25-2022 take 2 mg by mouth at bedtime Risperidone Discontinued 2 MG PO Bedtime June 02, 2022 1:00am September 25, 2022 7:33am Start: 08-04-2018 take 1-2 tablets by mouth at bedtime Risperdal 0.5 mg Tab See Instructions, 1-2 tabs po at bedtime, # 180 tab(s), Refills(s) 1, Pharmacy: [facility] Start Date: 02/06/19 Status: Ordered Comment on above: TAKE 1/2 (ONE-HALF) TO 1 (ONE) TABLET BY MOUTH AT BEDTIME vitamin e 450 mg oral capsule (5 sources) Start: 08-07-2020 End: 06-02-2022 take 1000 [IU] by mouth once daily Vitamin E Discontinued 1000 UNIT PO Daily August 07, 2020 12:00am June 02, 2022 8:21pm Comment on above: Take 1,000 Units by mouth once daily. Problems Active Problems Problem Classification Problem Date Documented Da te Episodic/Chronic Anxiety disorders (20 sources) Anxiety; 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: [Mild anxiety] Resolved: 09-01-2018 09-01-2018 Chronic Calculus of urinary tract (11 sources) Kidney stone 08-04-2018 Episodic Deficiency and other anemia (11 sources) Anemia 08-04-2018 Episodic Diabetes mellitus without complication (17 sources) Type 2 diabetes mellitus without complication; 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: [Type 2 diabetes mellitus without complications] Onset: 03-02-2022 Chronic Disorders of lipid metabolism (20 sources) Hypercholesterolemi a; 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: [Mixed hyperlipidemia] Resolved: 08-04-2018 08-04-2018 Chronic Esophageal disorders (11 sources) Esophageal erosions 10-11-2018 Chronic Essential hypertension (20 sources) Hypertensive disorder; 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: [Essential (primary) hypertension] Onset: 01-21-2022 08-04-2018 Chronic Fluid and electrolyte disorders (3 sources) Hypo-osmolality and hyponatremia; 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: [Hypo-osmolality and hyponatremia] Onset: 06-12-2022 Episodic Genitourinary symptoms and ill-defined conditions (20 sources) Urgent desire to urinate; 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: [Urgency of urination] Onset: 10-04-2018 10-04-2018 Episodic Menopausal disorders (1 source) Other primary ovarian failure; 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: [OTHER PRIMARY OVARIAN FAILURE] Onset: 11-01-2021 Chronic Mood disorders (16 sources) Depressive disorder; 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: [Depression] Onset: 06-22-2022 11-28-2020 Chronic Nausea and vomiting (2 sources) Nausea; 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: [Nausea] Onset: 06-09-2022 Episodic Osteoarthritis (20 sources) Arthritis 08-04-2018 Chronic Other aftercare (3 sources) Other detention (current) drug therapy; 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: [Other general manager in training (current) drug therapy] Onset: 06-10-2022 Episodic Other bone disease and musculoskeletal deformities (11 sources) Osteopenia 10-11-2018 Episodic Other RESIDENTIAL REAL ESTATE AGENT infection and poliomyelitis (13 sources) Late effects of poliomyelitis; 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] Onset: 10-04-2018 10-04-2018 Chronic Other diseases of bladder and urethra (3 sources) Neurogenic dysfunction of the urinary bladder; 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: [Neuromuscular dysfunction of bladder, unspecified] Onset: 07-01-2022 Chronic Other diseases of bladder and urethra (11 sources) Neurogenic bladder 06-24-2022 Chronic Other diseases of bladder and urethra (1 source) Flaccid neurogenic bladder; 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, not elsewhere classified] Onset: 11-25-2022 Chronic Other diseases of bladder and urethra (4 sources) Bladder muscle dysfunction - underactive 11-25-2022 Chronic Other endocrine disorders (2 sources) Disorder of adrenal gland; 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: [Other specified disorders of adrenal gland] Onset: 07-01-2022 Chronic Other gastrointestinal disorders (4 sources) Diarrhea; 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: [Diarrhea, unspecified] 08-08-2020 Episodic Other gastrointestinal disorders (20 sources) Adrenal mass 06-24-2022 Episodic Other hereditary and degenerative nervous system conditions (1 source) Motor neuron disease; 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: [Motor neuron disease, unspecified] Onset: 09-23-2018 09-23-2018 Chronic Other liver diseases (11 sources) Non-alcoholic fatty liver 09-01-2018 Chronic Other liver diseases (11 sources) Elevated liver enzymes level 08-04-2018 Episodic Other nervous system disorders (1 source) Spinal cord disease; 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: [Disease of spinal cord, unspecified] Onset: 10-04-2018 10-04-2018 Chronic Other nutritional; endocrine; and metabolic disorders (4 sources) Hypercalcemia; 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: [HYPERCALCEMIA] Onset: 06-19-2022 Chronic Other nutritional; endocrine; and metabolic disorders (1 source) Hypercalcemia; 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: [Hypercalcemia] Onset: 07-30-2022 Chronic Other nutritional; endocrine; and metabolic disorders (2 sources) Anorexia; 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: [Anorexia] Onset: 06-09-2022 Episodic Other nutritional; endocrine; and metabolic disorders (2 sources) Abnormal weight loss; 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: [Loss of weight] Onset: 09-02-2022 09-25-2022 Episodic Other nutritional; endocrine; and metabolic disorders (1 source) Weight loss; 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: [Abnormal weight loss] 09-25-2022 Episodic Other nutritional; endocrine; and metabolic disorders (1 source) Abnormal weight loss; 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: [Abnormal weight loss] Onset: 09-25-2022 Episodic Other screening for suspected conditions (not mental disorders or infectious disease) (5 sources) Abnormal results of liver function studies; 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: [Encounter for screening mammogram for malignant neoplasm of breast] Onset: 10-29-2021 Episodic Phlebitis; thrombophlebitis and thromboembolism (4 sources) 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; 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: [CHRON EMBO THROMBOSIS LT ILIAC VEIN] Onset: 02-25-2022 Chronic Residual codes; unclassified (1 source) Restlessness and agitation; 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: [Restlessness and agitation] Onset: 06-02-2022 Chronic Unclassified (1 source) CONTACT W/AND (SUSP) EXPOS COVID-19; 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: [CONTACT W/AND (SUSP) EXPOS COVID-19] Onset: 01-21-2022 Urinary tract infections (15 sources) Urinary tract infectious disease; 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: [Urinary tract infection, site not specified] Onset: 01-21-2022 Episodic Past or Other Problems Problem Classification Problem Date Documented Da te Episodic/Chronic Abdominal pain (4 sources) Unspecified abdominal pain; 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: [UNSPECIFIED ABDOMINAL PAIN] Onset: 01-16-2022 Episodic Gastroduodenal ulcer (except hemorrhage) (1 source) Personal history of peptic ulcer disease; 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: [PERSONAL HX PEPTIC ULCER DISEASE] Onset: 01-21-2022 Episodic Malaise and fatigue (1 source) Asthenia; 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: [Weakness] Onset: 05-05-2022 Episodic Other aftercare (1 source) penitentiary (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; 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: [RESIDENTIAL USE ORAL HYPOGLYCEMIC DX] Onset: 01-21-2022 Episodic Other aftercare (1 source) loss prevention agent (current) use of anticoagulants; 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: [RESIDENTIAL CURRNT USE ANTICOAGULANTS] Onset: 01-21-2022 Episodic Other bone disease and musculoskeletal deformities (1 source) Other specified disorders of bone density and structure, right thigh; 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: [OTH D/O BONE DEN STRUCT RT THIGH] Onset: 11-01-2021 Episodic Other connective tissue disease (1 source) Muscle weakness (generalized); 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: [MUSCLE WEAKNESS GENERALIZED] Onset: 02-04-2022 Episodic Other connective tissue disease (1 source) Pain in right leg; 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: [PAIN IN RIGHT LEG] Onset: 02-01-2022 Episodic Other liver diseases (5 sources) Abnormal levels of other serum enzymes; 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: [ABNORMAL LEVELS OTHER SERUM ENZYMES] Onset: 01-30-2022 Episodic Other nervous system disorders (1 source) Abnormal gait; 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: [Unspecified abnormalities of gait and mobility] Onset: 09-23-2018 09-23-2018 Episodic Other non-traumatic joint disorders (4 sources) Pain in left hip; 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: [PAIN IN LEFT HIP] Onset: 12-04-2021 Episodic Other non-traumatic joint disorders (1 source) Pain in right hip; 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: [PAIN IN RIGHT HIP] Onset: 12-05-2021 Episodic Other non-traumatic joint disorders (1 source) Pain in right knee; 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: [PAIN IN RIGHT KNEE] Onset: 12-05-2021 Episodic Other non-traumatic joint disorders (1 source) Pain in left knee; 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: [PAIN IN LEFT KNEE] Onset: 12-05-2021 Episodic Phlebitis; thrombophlebitis and thromboembolism (2 sources) Personal history of other venous thrombosis and embolism; 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: [Acute embolism and thrombosis of right femoral vein] Onset: 01-21-2022 Episodic Residual codes; unclassified (1 source) Family history of malignant neoplasm of breast; 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: [FAMILY HX MALIG NEOPLASM OF BREAST] Onset: 11-01-2021 Episodic Suicide and intentional self-inflicted injury (5 sources) Suicidal thoughts; 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: [Suicidal ideations] Onset: 06-02-2022 11-28-2020 Episodic Unclassified (11 sources) dm (qualifier value) 08-04-2018 Results Test Name Value Interpretation Reference Range Facility Retail - Clinical Noteon Retail - Clinical Note [id number]#1.00TIFF [facility] Ambulatory Visit Summaryon 0 05-11-2023 Ambulatory Visit Summary JAMARI ELIZALDE :1940 Visit Date:05/11/2023 Ambulatory Visit Instructions Your Care Team Attending Physician - SEBASTIÁN BILL PA-C Primary Care Physician - FOZIA TOBAR CNP This Is Your Medications List alprazolam (alprazolam 0.25 mg Tab) amantadine (amantadine 100 mg Cap) amlodipine (Norvasc 2.5 mg Tab) aripiprazole (Abilify 2 mg Tab) aspirin (aspirin 81 mg Chew Tab) ciprofloxacin (Cipro 250 mg Tab) cranberry docusate (docusate sodium 100 mg Cap) glimepiride (glimepiride 1 mg Tab) lidocaine topical (lidocaine 5% patch) lisinopril (lisinopril 20 mg Tab) lorazepam (Ativan 0.5 mg Tab) melatonin (melatonin 10 mg oral tablet) metformin (metformin 500 mg ER Tab) omeprazole (omeprazole 40 mg Cap-DR) ondansetron (Zofran 4 mg Tab) oxybutynin (oxybutynin 5 mg Tab) risperidone (Risperdal 0.5 mg Tab) sertraline (sertraline 25 mg Tab) trazodone (traZODONE 100 mg Tab) Procedures Performed Urodynamics (10/26/2022), Cystourethroscopy with dilation of urethral stricture (05/13/2012), Appendectomy, Arthroplasty of right shoulder, Bilateral cataracts, Colonoscopy, Hysterectomy, Tubal ligation. What to do next Scheduled Follow-Up Appointments Wednesday 1:00 PM EST Where: [facility] Retail - Clinical Noteon Retail - Clinical Note [id number]#[id number] [facility] Ambulatory Visit Summaryon 1 05-17-2022 Ambulatory Visit Summary JAMARI ELIZALDE :1940 Visit Date:03/16/2023 Ambulatory Visit Instructions Your Care Team Attending Physician - SEBASTIÁN BILL PA-C Primary Care Physician - FOZIA TOBAR CNP This Is Your Medications List alprazolam (alprazolam 0.25 mg Tab) amantadine (amantadine 100 mg Cap) amlodipine (Norvasc 2.5 mg Tab) aripiprazole (Abilify 2 mg Tab) aspirin (aspirin 81 mg Chew Tab) ciprofloxacin (Cipro 250 mg Tab) cranberry docusate (docusate sodium 100 mg Cap) glimepiride (glimepiride 1 mg Tab) lidocaine topical (lidocaine 5% patch) lisinopril (lisinopril 20 mg Tab) lorazepam (Ativan 0.5 mg Tab) melatonin (melatonin 10 mg oral tablet) metformin (metformin 500 mg ER Tab) omeprazole (omeprazole 40 mg Cap-DR) ondansetron (Zofran 4 mg Tab) oxybutynin (oxybutynin 5 mg Tab) risperidone (Risperdal 0.5 mg Tab) sertraline (sertraline 25 mg Tab) trazodone (traZODONE 100 mg Tab) Procedures Performed Urodynamics (10/26/2022), Cystourethroscopy with dilation of urethral stricture (05/13/2012), Appendectomy, Arthroplasty of right shoulder, Bilateral cataracts, Colonoscopy, Hysterectomy, Tubal ligation. What to do next Scheduled Follow-Up Appointments Wednesday 1:00 PM EST Where: [facility] Retail - Clinical Noteon Retail - Clinical Note [id number]#1.00TIFF [facility] Ambulatory Visit Summaryon 1 Ambulatory Visit Summary JAMARI ELIZALDE :1940 Visit Date:01/19/2023 Ambulatory Visit Instructions Your Care Team Attending Physician - ESBASTIÁN BILL PA-C Primary Care Physician - FOZIA TOBAR CNP This Is Your Medications List alprazolam (alprazolam 0.25 mg Tab) amantadine (amantadine 100 mg Cap) amlodipine (Norvasc 2.5 mg Tab) aripiprazole (Abilify 2 mg Tab) aspirin (aspirin 81 mg Chew Tab) ciprofloxacin (Cipro 250 mg Tab) cranberry docusate (docusate sodium 100 mg Cap) glimepiride (glimepiride 1 mg Tab) lidocaine topical (lidocaine 5% patch) lisinopril (lisinopril 20 mg Tab) lorazepam (Ativan 0.5 mg Tab) melatonin (melatonin 10 mg oral tablet) metformin (metformin 500 mg ER Tab) omeprazole (omeprazole 40 mg Cap-DR) ondansetron (Zofran 4 mg Tab) oxybutynin (oxybutynin 5 mg Tab) risperidone (Risperdal 0.5 mg Tab) sertraline (sertraline 25 mg Tab) trazodone (traZODONE 100 mg Tab) Procedures Performed Urodynamics (10/26/2022), Cystourethroscopy with dilation of urethral stricture (05/13/2012), Appendectomy, Arthroplasty of right shoulder, Bilateral cataracts, Colonoscopy, Hysterectomy, Tubal ligation. What to do next Scheduled Follow-Up Appointments Wednesday 1:00 PM EST Where: [facility] Patient Educationon 11-26-19 Patient Education Obstetrics and Gynec ology Urinary Tract Infection, Adult A urinary tract infection (UTI) is an infection of any part of the urinary tract. The urinary tract includes: ? The kidneys. ? The ureters. ? The bladder. ? The urethra. These organs make, store, and get rid of pee (urine) in the body. What are the causes? This infection is caused by germs (bacteria) in your genital area. These germs grow and cause swelling (inflammation) of your urinary tract. What increases the risk? The following factors may make you more likely to develop this condition: ? Using a small, thin tube (catheter) to drain pee. ? Not being able to control when you pee or poop (incontinence). ? Being female. If you are female, these things can increase the risk: ? Using these methods to prevent : ? A medicine that kills sperm (spermicide). ? A device that blocks sperm (diaphragm). ? Having low levels of a female hormone (estrogen). ? Being . You are more likely to develop this condition if: ? You have genes that add to your risk. ? You are sexually active. ? You take antibiotic medicines. ? You have trouble peeing because of: ? A prostate that is bigger than normal, if you are male. ? A blockage in the part of your body that drains pee from the bladder. ? A kidney stone. ? A nerve condition that affects your bladder. ? Not getting enough to drink. ? Not peeing often enough. ? You have other conditions, such as: ? Diabetes. ? A weak disease-fighting system (immune system). ? Sickle cell disease. ? Gout. ? Injury of the spine. What are the signs or symptoms? Symptoms of this condition include: ? Needing to pee right away. ? Peeing small amounts often. ? Pain or burning when peeing. ? Blood in the pee. ? Pee that smells bad or not like normal. ? Trouble peeing. ? Pee that is cloudy. ? Fluid coming from the vagina, if you are female. ? Pain in the belly or lower back. Other symptoms include: ? Vomiting. ? Not feeling hungry. ? Feeling mixed up (confused). This may be the first symptom in older adults. ? Being tired and grouchy (irritable). ? A fever. ? Watery poop (diarrhea). How is this treated? ? Taking antibiotic medicine. ? Taking other medicines. ? Drinking enough water. In some cases, you may need to see a specialist. Follow these instructions at home: Medicines ? Take [id number] and prescription medicines only as told by your doctor. ? If you were prescribed an antibiotic medicine, take it as told by your doctor. Do not stop taking it even if you start to feel better. General instructions ? Make sure you: ? Pee until your bladder is empty. ? Do not hold pee for a long time. ? Empty your bladder after sex. ? Wipe from front to back after peeing or pooping if you are a female. Use each tissue one time when you wipe. ? Drink enough fluid to keep your pee pale yellow. ? Keep all follow-up visits. Contact a doctor if: ? You do not get better after 1?2 days. ? Your symptoms go away and then come back. Get help right away if: ? You have very bad back pain. ? You have very bad pain in your lower belly. ? You have a fever. ? You have chills. ? You feeling like you will vomit or you vomit. Summary ? A urinary tract infection (UTI) is an infection of any part of the urinary tract. ? This condition is caused by germs in your genital area. ? There are many risk factors for a UTI. ? Treatment includes antibiotic medicines. ? Drink enough fluid to keep your pee pale yellow. This information is not intended to replace advice given to you by your health care provider. Make sure you discuss any questions you have with your health care provider. Document Revised: 11/01/2020 Document Reviewed: 11/01/2020 [employer] Patient Education ? 2022 [employer] Lori [facility] Urology Office/Clinic Noteon 11-25-2022 Urology Office/Clinic Note Chief Complaint Catheter change and review URO'S HPI Staff Pt is here today for catheter change & to review Uro's done 10/26/22. Pt. states she has taken the Cipro prior to having catheter changed. DX: NGB, Urinary Retention & UTI Catheter last changed at time of URO's Pt. states no blood or clot in the catheter bag. History of Present Illness Tests reviewed: reviewed UA and UDS I have reviewed the previous health record information and history for this patient from . I have reviewed and verified the staff HPI to be accurate for this encounter. There have been no associated fever, chills, flank pain, or blood in the urine. Denies any urinary infections since last encounter. Review of Systems ROS - Provider Constitutional: denies weight loss, denies hot flashes. Eyes: denies eye problems. Gastrointestinal: denies nausea, denies vomiting. Cardiovascular: denies chest pain or angina. Integumentary: no dryness Musculoskeletal: denies musculoskeletal symptoms. ENMT: denies otolaryngeal symptoms. Respiratory: no shortness of breath. Heme/Lymph: denies easy bleeding tendency, denies easy bruising tendency. Psychiatric: no confusion, no anxiety. Genitourinary: See HPI. Physical Exam Vitals & Measurements HT: 65 in HT: 165 cm WT: 68 kg WT: 149.6 lb BMI: 24.98 General Appearance: alert , no acute distress, well nourished, well developed female. Ambulates with roller walker Sacrum with raised soft tissue, no skin defects Assessment/Plan Jamari is an 82 yo female here today for a cath change and to review her urodynamics testing results. 1. 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 Being worked up for other neurologic issues such as MS - declined any known diagnosis, completed neuro rehab, no residual neurologic deficits Suspected per cysto at [facility] in 2019 for gross hematuria. 3+ trabeculations. Hematuria workup negative. Unable to CIC, has tried in the past, has tremor. Urodynamics and Cath Change 10/26/22 - early sensation 67 cc, bladder capacity 408mL, PVR 226mL, Low Qmax 8.1 ml/secs, Pdet 14cm H2O, no leakage w/ stress test, BCI-weak 47.5, abdominal straining EMG w/voiding. ICIQ-SF (0). No sample provided for UA today, pt has ribeiro. Pt states no blood or clot in the catheter bag. Educated pt on Urodynamic results- atonic bladder, valsalva voids. Discussed referral for sacral neuromodulation given complexity with spina bifida vs SP cath vs continued urethral ribeiro cath. Pt states that she has had a bladder stimulation in the past and it was not successful (sounds like biofeedback vs PNE) Discussed need for bowel cleanout and repeat CT pelvis prior to SPT placement given no window previously from severe constipation. Pt states she has not been able to have regular DM's. - Advised pt on bowel regimen and need for GI/PCP follow up. -Pt states that she would like to keep the normal cath in place. Discussed having the pt come in for her cath changes or have a nurse change it. Pt states that she would like to come into the office for her changes. -Advised pt to let our office know if she would like to switch to a SP tube in the future. Pt states she is having bladder spasms but they are not bothersome. -Cont bowel regimen (significant constipation on CT scan) Follow up in 1 mos w/ cath change with nursing. All questions/concerns were discussed. Pt to call the office if she encounters any issues prior. Pt acknowledges understanding. 2. Urinary retention (R33.9: Retention of urine, unspecified) Pt had Ribeiro placed at [facility] on 06/02/22. Cath placed on 07/01/22 PVR > 600cc after failed voiding trial Pt had Ribeiro changed on 06/11/2022 at [facility]. Pt has a tremor and does not feel like she can perform CIC See #1. -Cont monthly ribeiro exchanges. She will notify me if she would like SPT after bowel cleanout and CT pelvis 3. History of UTI (Z87.440: Personal history of urinary (tract) infections) Risk of recurrence given incomplete emptying. UTI (asymptomatic) 05/05/2022[facility] 06/07/20[facility] - ribeiro exchange UCx 07/23/22 [facility] - >100,000 S. marcescens and >100,000 P. arginosa. Resistant to Cefazolin, Macrobid. Pt denies any UTI sxs. Again discussed difference between bacteruria from colonization given indwelling ribeiro vs UTI that requires treatment. Recently treated for bacteruria to ensure not contributing to UDS findings. Pt is taking prophy abx, Cipro 250 mg, one tab the morning of cath exchanges x 6 ct. Do not take for UTI. Pt states she has taken the Cipro prior to having catheter changed. -Cranberry pills, bowel regimen, increase fluid intake. I spent 35 minutes today with the patient: reviewing tests in preparation to see and discuss them with the patient, documenting clinical information in the electronic health records, and care coordination. Time was spent performing a me (more content not included)... Normal [facility] Comment on above: Result Comment: Elec tronically Signed By: David WELLS, Ivana Kirby\.br\Date and Time Signed: 11/25/22 18:15 EDT\.br\Electronically Co-Signed By: Mary Moore\.br\Date and Time Co-Signed: 11/25/22 10:06 EDT IntraOperative Documentson 0 11-09-2022 IntraOperative Documents [id number]#1.00CD:127 [facility] IntraOperative Documentson 0 10-27-2022 IntraOperative Documents [id number]#1.00CD:127 [facility] Consent for Procedure/Surger yon 10-26-2022 Consent for Procedure/Surgery [id number]#1.00CD:127 [facility] Consent for Treatmenton 10-04 Consent for Treatment [id number]#1.00CD:127 [facility] IntraOperative Documentson 0 10-26-2022 IntraOperative Documents [id number]#1.00CD:127 [facility] Coding Queryon 10-21-2022 Coding Query - From: Nori Roger To: Ivana Hernandez MD; Sent: 10/20/2022 15:33:34 EDT ! Subject: Coding Query (Template) CODING COMMUNICATION: _X__ Diagnosis missing for urine culture, please document ____ Procedure information missing: ____ Please clarify type of organism associated with infection ____ Please complete ROS or HPI for ER documentation Please feel free to contact the coding department with any questions. Thank you! From: David WELLS, Ivana Kirby To: Nori Roger; Sent: 10/21/2022 08:57:27 EDT Subject: RE: Coding Query (Template) Caller Name: JAMARI ELIZALDE; Caller Number: H Order sent with dx, unable to modify existing computer order [facility] Physician Orderon 10-21-2022 Physician Order [id number]#1.00CD:127 [facility] C Urineon 10-14-2022 Bacteria identified Cx Nom (U) Microbiology PROCEDURE: Urine Culture [R1] SOURCE: U Cath BODY SITE: COLLECTED DATE/TIME: 10/12/2022 09:36 EDT RECEIVED DATE/TIME: 10/12/2022 14:27 EDT START DATE/TIME: 10/12/2022 14:27 EDT FREE TEXT SOURCE: Quintin Hernandez MD, Ivana Hernandez MD, Ivana Kirby FINAL REPORTS Final Report [] Verified Date/Time: 10/14/2022 11:31 EDT >100,000 cfu/ml Citrobacter freundii SUSCEPTIBILITY RESULTS LEGEND: S=Susceptible, N/R=Not Reported, Blank=Data not available, or drug not advisable or tested, I=Intermediate, ESBL=Extended spectrum beta-lactamase, R=Resistant, TFG=Thymidine-dependent strain, MERYL=Beta-lactamase positive, MARISOL=mcg/m;(mg/L), S*=Predicted susceptible interp, R*=Predicted resistant interp Citfreu Antibiotic MARISOL Dilutn MARISOL Interp Amikacin <=16 S Ampicillin 16 R* Ampicillin/ <=8/4 R* Sulbactam Aztreonam 16 I Cefazolin >16 R Cefepime <=2 S Cefoxitin >16 R Ceftazidime <=1 S Ceftazidime/ <=8 S Avibactam Ceftriaxone 2 I Ciprofloxacin <=1 S Ertapenem <=0.5 S Gentamicin <=4 S Levofloxacin <=2 S Meropenem <=1 S Nitrofurantoin <=32 S Piperacillin/ <=16 S Tazobactam Tetracycline <=4 S Tigecycline <=2 S Tobramycin <=4 S Trimethoprim/ <=2/38 S Sulfa Performing Locations R1: This test was performed at: [facility], [address] [place] [address], [address] , , [facility] Comment on above: Performed By: #### [id number] #### [facility] [address] [place] [address] Consent for Treatmenton 10-03 Consent for Treatment [id number]#1.00CD:127 Normal [facility] Ambulatory Visit Summaryon 0 09-30-2022 Ambulatory Visit Summary JAMARI ELIZALDE :1940 Visit Date:09/30/2022 Ambulatory Visit Instructions Your Care Team Attending Physician - Ivana Hernandez MD Primary Care Physician - FOZIA TOBAR CNP This Is Your Medications List alprazolam (alprazolam 0.25 mg Tab) amantadine (amantadine 100 mg Cap) amlodipine (Norvasc 2.5 mg Tab) aripiprazole (Abilify 2 mg Tab) aspirin (aspirin 81 mg Chew Tab) ciprofloxacin (Cipro 250 mg Tab) cranberry docusate (docusate sodium 100 mg Cap) glimepiride (glimepiride 1 mg Tab) lidocaine topical (lidocaine 5% patch) lisinopril (lisinopril 20 mg Tab) lorazepam (Ativan 0.5 mg Tab) melatonin (melatonin 10 mg oral tablet) metformin (metformin 500 mg ER Tab) omeprazole (omeprazole 40 mg Cap-DR) ondansetron (Zofran 4 mg Tab) risperidone (Risperdal 0.5 mg Tab) sertraline (sertraline 25 mg Tab) trazodone (traZODONE 100 mg Tab) Procedures Performed Cystourethroscopy with dilation of urethral stricture (05/13/2012), Appendectomy, Arthroplasty of right shoulder, Bilateral cataracts, Colonoscopy, Hysterectomy, Tubal ligation. Medications What How Much When Why Instructions Unchanged alprazolam (alprazolam 0.25 mg Tab) 1 Tablets By Mouth 2 times a day as needed for for anxiety Mild anxiety Unchanged amantadine (amantadine 100 mg Cap) By Mouth 2 times a day Unchanged amlodipine (Norvasc 2.5 mg Tab) Unchanged aripiprazole (Abilify 2 mg Tab) By Mouth Every day Unchanged aspirin (aspirin 81 mg Chew Tab) Chewed Every day Unchanged ciprofloxacin (Cipro 250 mg Tab) 1 Tablets By Mouth Once Once a month, morning of ribeiro exchange Unchanged cranberry Unchanged docusate (docusate sodium 100 mg Cap) 1 Capsules By Mouth 2 times a day as needed for for constipation Unchanged glimepiride (glimepiride 1 mg Tab) By Mouth Every day Unchanged lidocaine topical (lidocaine 5% patch) Topical Every day Unchanged lisinopril (lisinopril 20 mg Tab) Unchanged lorazepam (Ativan 0.5 mg Tab) By Mouth Every 8 hours Unchanged melatonin (melatonin 10 mg oral tablet) By Mouth Once a day (at bedtime) Unchanged metformin (metformin 500 mg ER Tab) By Mouth Every day Unchanged omeprazole (omeprazole 40 mg Cap-DR) Unchanged ondansetron (Zofran 4 mg Tab) By Mouth Every 8 hours Unchanged risperidone (Risperdal 0.5 mg Tab) See instructions Recurrent major depression 1-2 tabs po at bedtime Unchanged sertraline (sertraline 25 mg Tab) 1 Tablets By Mouth Every day total daily dose is 125mg Unchanged trazodone (traZODONE 100 mg Tab) By Mouth Allergies No Known Medication Allergies Problems Ongoing - Any problem that you are currently receiving treatment for. Adrenal nodule Anemia Arthritis DM (diabetes mellitus) Esophageal erosions Fatty liver disease, nonalcoholic HTN (hypertension) Left adrenal mass Mild anxiety Mixed hyperlipidemia Neurogenic bladder Osteopenia Postpolio syndrome Recurrent major depression Urinary retention UTI (urinary tract infection) Historical - Any problem that you are no longer receiving treatment for. Anxiety Arthritis dm Elevated liver enzymes level High cholesterol HTN - Hypertension Kidney stone Normal [facility] Glucose Glucometer (BldC) [M ass/Vol]Ordered By: Pipe Sanchez on 09-25-2022 Glucose [Mass/Vol] 169 mg/dL [facility] Comment on above: Random Glucose Refer ence Range is dependent on time and content of last meal. Glucose of more than 200 mg/dL in a nonstressed, ambulatory subject supports the diagnosis of Diabetes Mellitus. Glucose Poct Glucometerson 0 09-25-2022 Commemt1 Glu2: Cleaned Meter Normal [facility] Comment on above: Result Comment: PERF ORMED BY: [facility] [address] [place] [address] PATHOLOGIST ASSISTANT AUDITOR LILLY LOTT M.D. Performed By: #### C K, CRP, CMP, CBC, ESR, TSH3 #### [facility] [address] [id number] [place] #### ALDOLASE #### [facility] , Glucose [Mass/Vol] 169 mg/dL Normal [facility] Comment on above: Result Comment: [place] Glucose Reference Range is dependent on time and content of last meal. Glucose of more than 200 mg/dL in a nonstressed, ambulatory subject supports the diagnosis of Diabetes Mellitus. Performed By: #### C K, CRP, CMP, CBC, ESR, TSH3 #### [facility] [address] [place] [address] [place] #### ALDOLASE #### [facility] , Alcides 09-25-2022 L ------- Specimen: [id number] Received: 09/25/22 Status: KATJA Yahaira Num: [id number] Spec Type: Surgical Subm Dr: Pipe Sanchez MD Tissues: A Duodenum - Biopsy (DUODENAL BX) Procedures: HE/2, Gross/Micro L4 Age/ Patient Sex Location Account Attending Physician Jamari Elizalde 82/F [id number] Pipe Sanchez MD SPEC NUM: [id number] RECD: 09/25/22 STATUS: KATJA ANDREW NUM: [id number] JOSE RAUL: 09/25/22 [facility] DR: Pipe Sanchez MD ENTERED: 09/25/[address] [facility] [address]: PETE TYPE: Surgical DEPT: S ORDERED: HE/2, Gross/Micro L4 ORDERED: HE/2, Gross/Micro L4 Pathological Diagnosis Small bowel, duodenum, biopsy: - Small intestinal mucosa negative for significant histopathologic changes. - Negative for celiac disease. Clinical Information Weight loss, nausea, rule out sprue Gross Description Received in formalin labeled with the patient's name, date of and duodenal biopsy is one rice tissue measuring 0.3 cm. Entirely submitted in one cassette labeled A1. Microscopic Description Two H E slides reviewed. The microscopic examination confirms the diagnosis. CPT Codes 26959 Specimen: [id number] Received: 09/25/22 Status: KATJA Andrew Num: [id number] Spec Type: Surgical Subm Dr: Pipe Sanchez MD Tissues: A Duodenum - Biopsy (DUODENAL BX) Procedures: HE/2, Gross/Micro L4 Patient: Jamari Elizalde [id number] (Continued) Signed (signature on file) Adore Kenyon MD 09/28/22 1057 Normal [facility] No Panel InformationOrdered By: Pipe Sanchez on 09-25-2022 Bedside Glucose Comment Glu2: cleaned meter [facility] CBC AUTO DIFFon 09-01-2022 BASO # 0.0 103/ul Normal 0.0-0.1 [facility] Comment on above: Performed By: #### L IPID, BMP, NA #### [facility] [address] [address] [address] Dilip Cartagena Basophils/100 WBC (Bld) 0.6 % Normal 0.2-2.0 [facility] Comment on above: Performed By: #### L IPID, BMP, NA #### [facility] [address] [address] [address] Dilip Cartagena EO # 0.3 103/ul Normal 0.0-0.7 [facility] Comment on above: Performed By: #### L IPID, BMP, NA #### [facility] [address] [place] [address] Dr. Dilip Cartagena Eosinophils/100 WBC (Bld) 3.9 % Normal 0.9-7.0 [facility] Comment on above: Performed By: #### L IPID, BMP, NA #### [facility] [address] [place] [address] Dr. Dilip Cartagena Erythrocyte distribution width (RBC) [Ratio] 14.1 % Normal 11.0-15.0 [facility] Comment on above: Performed By: #### L IPID, BMP, NA #### [facility] [address] [place] [address] Dr. Dilip Cartagena Hematocrit (Bld) [Volume fraction] 40.2 % Normal 36.0-48.0 [facility] Comment on above: Performed By: #### L IPID, BMP, NA #### [facility] [address] [place] [address] Dr. Dilip Cartagena Hemoglobin (Bld) [Mass/Vol] 13.5 g/dL Normal 12.0-16.0 [facility] Comment on above: Performed By: #### L IPID, BMP, NA #### [facility] [address] [place] [address] Dr. Dilip Cartagena IG # 0.03 10e3/ul Normal 0.00-0.03 [facility] Comment on above: Performed By: #### L IPID, BMP, NA #### [facility] [address] [place] [address] Dr. Dilip Cartagena IG % 0.4 % Normal 0.0-0.5 [facility] Comment on above: Performed By: #### L IPID, BMP, NA #### [facility] [address] [place] [address] Dr. Dilip Cartagena LYMPH # 2.4 103/ul Normal 1.2-3.8 [facility] Comment on above: Performed By: #### L IPID, BMP, NA #### [facility] [address] [place] [address] Dr. Dilip Cartagena Lymphocytes/100 WBC (Bld) 33.0 % Normal 20.5-60.0 [facility] Comment on above: Performed By: #### L IPID, BMP, NA #### [facility] [address] [place] [address] Dr. Dilip Cartagena MANUAL DIFF REQ NO Normal [facility] Comment on above: Performed By: #### L IPID, BMP, NA #### [facility] [address] [place] [address] Dr. Dilip Cartagena MCH (RBC) [Entitic mass] 31.1 pg Normal 26.7-34.0 [facility] Comment on above: Performed By: #### L IPID, BMP, NA #### [facility] [address] [place] [address] Dr. Dilip Cartagean MCHC (RBC) [Mass/Vol] 33.6 g/dL Normal 29.9-35.2 [facility] Comment on above: Performed By: #### L IPID, BMP, NA #### [facility] [address] [place] [address] Dr. Dilip Cartagena MCV (RBC) [Entitic vol] 92.6 fL Normal 81.0-99.0 [facility] Comment on above: Performed By: #### L IPID, BMP, NA #### [facility] [address] [place] [address] Dr. Dilip Cartagena MONO # 0.5 103/ul Normal 0.3-0.8 [facility] Comment on above: Performed By: #### L IPID, BMP, NA #### [facility] [address] [place] [address] Dr. Dilip Cartagena Monocytes/100 WBC (Bld) 6.9 % Normal 1.7-12.0 [facility] Comment on above: Performed By: #### L IPID, BMP, NA #### [facility] [address] [place] [address] Dr. Dilip Cartagena NEUT # 4.0 103/ul Normal 1.4-6.5 [facility] Comment on above: Performed By: #### L IPID, BMP, NA #### [facility] [address] [place] [address] Dr. Dilip Cartagena Neutrophils/100 WBC (Bld) 55.2 % Normal 43.0-75.0 [facility] Comment on above: Performed By: #### L IPID, BMP, NA #### [facility] [address] [place] [address] Dr. Dilip Cartagena Platelet mean volume (Bld) [Entitic vol] 7.9 fL Critically low 9.5-13.5 [facility] Comment on above: Performed By: #### L IPID, BMP, NA #### [facility] [address] [place] [address] Dr. Dilip Cartagena PLT 391 103/ul Normal 150-450 [facility] Comment on above: Performed By: #### L IPID, BMP, NA #### [facility] [address] [place] [address] Dr. Dilip Cartagena RBC 4.34 106/ul Normal 4.20-5.40 [facility] Comment on above: Performed By: #### L IPID, BMP, NA #### [facility] [address] [place] [address] Dr. Dilip Cartagena WBC 7.3 103/ul Normal 4.0-11.0 [facility] Comment on above: Performed By: #### L IPID, BMP, NA #### [facility] [address] [place] [address] Dr. Dilip Cartagena FREE T3on 09-01-2022 FREE T3 3.18 pg/mlL Normal 2.18-3.98 [facility] Comment on above: Performed By: #### U RCX #### [facility] [address] [place] [address] Dr. Dilip Cartagena FREE T4on 09-01-2022 Free T4 [Mass/Vol] 1.96 ng/dL Critically high 0.76-1.46 [facility] Comment on above: Performed By: #### P OCGLUC #### [facility] [address] [place] [address] Dr. Dilip Cartagena GLYCOHEMOGLOBIN A1Con 2022 ADA RECOMMENDATION SEE BELOW Normal [facility] Comment on above: Result Comment: ADA RECOMMENDED LIMIT 4.0 - 6.0 ADA THERAPEUTIC TARGET < 7.0 ACTION SUGGESTED > 7.0 Performed By: #### U RCX #### [facility] [address] [place] [address] Dr. Dilip Cartagena Glucose [Mass/Vol] 114 mg/dL Normal [facility] Comment on above: Performed By: #### U RCX #### [facility] [address] [place] [address] Dr. Dilip Catragena HbA1c (Bld) [Mass fraction] 5.6 % Normal 4.5-6.2 [facility] Comment on above: Performed By: #### U RCX #### [facility] [address] [place] [address] Dr. Dilip Cartagena MAGNESIUMon 09-01-2022 Magnesium [Mass/Vol] 2.4 mg/dL Normal 1.8-2.4 [facility] Comment on above: Performed By: #### U RCX #### [facility] [address] [place] [address] Dr. Dilip Cartagena PROF 14(COMP METB)on 023 Albumin [Mass/Vol] 4.0 g/dL Normal 3.4-5.0 [facility] Comment on above: Performed By: #### U RCX #### [facility] [address] [place] [address] Dr. Dilip Cartagena Albumin/Globulin [Mass ratio] 1.1 {ratio} Normal [facility] Comment on above: Performed By: #### U RCX #### [facility] [address] [place] [address] Dr. Dilip Cartagena ALP [Catalytic activity/Vol] 87 U/L Normal 46-116 [facility] Comment on above: Performed By: #### U RCX #### [facility] [address] [place] [address] Dr. Dilip Cartagena ALT [Catalytic activity/Vol] 24 U/L Normal 14-59 [facility] Comment on above: Performed By: #### U RCX #### [facility] [address] [address] [address] Dilip Cartagena Anion gap [Moles/Vol] 13.2 mmol/L Normal Th e [facility] Comment on above: Performed By: #### U RCX #### [facility] [address] [address] [address] Dilip Cartagena AST [Catalytic activity/Vol] 9 U/L Critically low 15-37 [facility] Comment on above: Performed By: #### U RCX #### [facility] [address] [place] [address] Dr. Dilip Cartagena Bilirubin [Mass/Vol] 0.5 mg/dL Normal 0.2-1.0 [facility] Comment on above: Performed By: #### U RCX #### [facility] [address] [place] [address] Dr. Dilip Cartagena Calcium [Mass/Vol] 9.5 mg/dL Normal 8.5-10.1 [facility] Comment on above: Performed By: #### U RCX #### [facility] [address] [place] [address] Dr. Dilip Cartagena Chloride [Moles/Vol] 94 mmol/L Critically low 98-107 [facility] Comment on above: Performed By: #### U RCX #### [facility] [address] [place] [address] Dr. Dilip Cartagena CO2 [Moles/Vol] 26.5 mmol/L Normal 21.0-32.0 [facility] Comment on above: Performed By: #### U RCX #### [facility] [address] [place] [address] Dr. Dilip Cartagena Creatinine [Mass/Vol] 0.94 mg/dL Normal 0.55-1.02 [facility] Comment on above: Performed By: #### U RCX #### [facility] [address] [place] [address] Dr. Dilip Cartagena EGFR-AF CHINESE >60 Normal >=60 [facility] Comment on above: Performed By: #### U RCX #### [facility] [address] [address] [address] Dilip Cartagena EGFR-NON AF CHINESE 57 mL/min/1.73m2 Critically low >=60 [facility] Comment on above: Performed By: #### U RCX #### [facility] [address] [address] [address] Dilip Cartagena Globulin (S) [Mass/Vol] 3.7 g/dL Normal [facility] Comment on above: Performed By: #### U RCX #### [facility] [address] [place] [address] Dr. Dilip Cartagena Glucose [Mass/Vol] 140 mg/dL Critically high 74-106 T [facility] Comment on above: Performed By: #### U RCX #### [facility] [address] [place] [address] Dr. Dilip Cartagena Potassium [Moles/Vol] 4.7 mmol/L Normal 3.5-5.1 [facility] Comment on above: Performed By: #### U RCX #### [facility] [address] [place] [address] Dr. Dilip Cartagena Protein [Mass/Vol] 7.7 g/dL Normal 6.4-8.2 [facility] Comment on above: Performed By: #### U RCX #### [facility] [address] [place] [address] Dr. Dilip Cartagena Sodium [Moles/Vol] 129 mmol/L Critically low 136-145 [facility] Comment on above: Performed By: #### U RCX #### [facility] [address] [address] [address] Dilip Cartagena Urea nitrogen [Mass/Vol] 16.0 mg/dL Normal 7.0-18.0 [facility] Comment on above: Performed By: #### U RCX #### [facility] [address] [address] [address] Dilip Cartagena Urea nitrogen/Creatinine [Mass ratio] 17.0 mg/mg Normal [facility] Comment on above: Performed By: #### U RCX #### [facility] [id number] Dilip Cartagena TSHon 09-01-2022 TSH 1.087 uIU/mL Normal 0.358-3.74 0 [facility] Comment on above: Performed By: #### U RCX #### [facility] [id number] Dilip Cartagena Ambulatory Visit Summaryon 0 08-26-2022 Ambulatory Visit Summary JAMARI ELIZALDE :1940 Visit Date:08/26/2022 Ambulatory Visit Instructions Your Diagnosis Neurogenic bladder Your Care Team Attending Physician - SEBASTIÁN BILL PA-C Primary Care Physician - FOZIA TOBAR CNP This Is Your Medications List alprazolam (alprazolam 0.25 mg Tab) amantadine (amantadine 100 mg Cap) amlodipine (Norvasc 2.5 mg Tab) aripiprazole (Abilify 2 mg Tab) aspirin (aspirin 81 mg Chew Tab) ciprofloxacin (Cipro 250 mg Tab) cranberry docusate (docusate sodium 100 mg Cap) glimepiride (glimepiride 1 mg Tab) lidocaine topical (lidocaine 5% patch) lisinopril (lisinopril 20 mg Tab) lorazepam (Ativan 0.5 mg Tab) melatonin (melatonin 10 mg oral tablet) metformin (metformin 500 mg ER Tab) omeprazole (omeprazole 40 mg Cap-DR) ondansetron (Zofran 4 mg Tab) risperidone (Risperdal 0.5 mg Tab) sertraline (sertraline 25 mg Tab) trazodone (traZODONE 100 mg Tab) Procedures Performed Cystourethroscopy with dilation of urethral stricture (05/13/2012), Appendectomy, Arthroplasty of right shoulder, Bilateral cataracts, Colonoscopy, Hysterectomy, Tubal ligation. Medications What How Much When Why Instructions Unchanged alprazolam (alprazolam 0.25 mg Tab) 1 Tablets By Mouth 2 times a day as needed for for anxiety Mild anxiety Unchanged amantadine (amantadine 100 mg Cap) By Mouth 2 times a day Unchanged amlodipine (Norvasc 2.5 mg Tab) Unchanged aripiprazole (Abilify 2 mg Tab) By Mouth Every day Unchanged aspirin (aspirin 81 mg Chew Tab) Chewed Every day Unchanged ciprofloxacin (Cipro 250 mg Tab) 1 Tablets By Mouth Once Once a month, morning of ribeiro exchange Unchanged cranberry Unchanged docusate (docusate sodium 100 mg Cap) 1 Capsules By Mouth 2 times a day as needed for for constipation Unchanged glimepiride (glimepiride 1 mg Tab) By Mouth Every day Unchanged lidocaine topical (lidocaine 5% patch) Topical Every day Unchanged lisinopril (lisinopril 20 mg Tab) Unchanged lorazepam (Ativan 0.5 mg Tab) By Mouth Every 8 hours Unchanged melatonin (melatonin 10 mg oral tablet) By Mouth Once a day (at bedtime) Unchanged metformin (metformin 500 mg ER Tab) By Mouth Every day Unchanged omeprazole (omeprazole 40 mg Cap-DR) Unchanged ondansetron (Zofran 4 mg Tab) By Mouth Every 8 hours Unchanged risperidone (Risperdal 0.5 mg Tab) See instructions Recurrent major depression 1-2 tabs po at bedtime Unchanged sertraline (sertraline 25 mg Tab) 1 Tablets By Mouth Every day total daily dose is 125mg Unchanged trazodone (traZODONE 100 mg Tab) By Mouth Allergies No Known Medication Allergies Problems Ongoing - Any problem that you are currently receiving treatment for. Adrenal nodule Anemia Arthritis DM (diabetes mellitus) Esophageal erosions Fatty liver disease, nonalcoholic HTN (hypertension) Left adrenal mass Mild anxiety Mixed hyperlipidemia Neurogenic bladder Osteopenia Postpolio syndrome Recurrent major depression Urinary retention UTI (urinary tract infection) Historical - Any problem that you are no longer receiving treatment for. Anxiety Arthritis dm Elevated liver enzymes level High cholesterol HTN - Hypertension Kidney stone Normal [facility] Nurse Consultation Noteon Nurse Consultation Note Reason for Visit Voiding Trial Assessment/Plan 1. Neurogenic bladder (N31.9: Neuromuscular dysfunction of bladder, unspecified) Pt?s catheter has been removed in office today with no complications. They have been advised to drink plenty of fluids. Pt has been instructed to call the office in the event that they are not able to void in the next 4-6 hours, or go the ER. Advised Pt if they experience any severe bleeding, fever over 101 and/ or shaking chills to go to the ER. Pt will f/u in 1m w/PVR w/MARQUEZ or KML Normal [facility] Screenson 08-10-2022 Screens [id number] Normal [facility] Patient Educationon 08-08-19 23 Patient Education Urology Neurogenic Bladder Neurogenic bladder is a bladder control disorder. It is usually caused by problems with the nerves that control the bladder. The brain sends signals through the spinal cord to the muscles in the bladder that start and stop urine flow. With neurogenic bladder, the nerves and muscles do not work together the way they should. This condition may make the bladder overactive, meaning you have trouble holding urine. In other cases, it may make the bladder underactive. This means that you have trouble passing urine. What are the causes? This condition may be caused by nerve damage or a condition that disrupts the signals from your brain to your bladder. Many things can cause these nerve problems, including: ? A disease that affects the nervous system, such as: ? Alzheimer's disease. ? Cerebral palsy. ? Multiple sclerosis. ? Diabetes. ? Parkinson's disease. ? Damage to your brain or spinal cord. This can come from: ? Trauma. ? Tumors. ? Infection. ? Surgery. ? Alcohol abuse. ? Stroke. ? A congenital disability that affects the spinal cord. What increases the risk? You are more likely to develop this condition if you have nerve damage or a nerve disorder. What are the signs or symptoms? Signs and symptoms of this condition include: ? Leaking or gushing urine (incontinence). ? A sudden, strong urge to pass urine (urgency). ? Frequent urination during the day and night. ? Being unable to empty your bladder completely (urinary retention). ? Frequent urinary tract infections. How is this diagnosed? This condition may be diagnosed based on: ? Your symptoms and medical history. ? A physical exam. ? Records from a bladder diary. You may be asked to keep a record or log of your bladder symptoms and the times that you urinate. You may also have tests, such as: ? A urine test to check for infection. ? A bladder scan after you urinate to see how much urine is left in your bladder. ? Tests to measure your urine flow and see how well the flow is controlled (urodynamic tests). ? A procedure that uses a small device with a camera to look through your urethra into your bladder (cystoscopy). A health care provider who specializes in the urinary tract (urologist) may do this test. ? Imaging tests of your brain or spine, such as MRI or CT scan. How is this treated? Treatment for this condition depends on the cause and the symptoms that you have. Work closely with your health care provider to find the treatments that will improve your quality of life. Treatment options include: ? Learning ways to control when you urinate, such as: ? Urinating at scheduled times. ? Training yourself to delay urination. ? Exercises to strengthen the muscles that control urine flow (Kegel exercises). ? Avoiding foods or drinks that make your symptoms worse. ? Taking medicines to: ? Stimulate an underactive bladder. ? Relax an overactive bladder. ? Treat a urinary tract infection. ? Learning how to use a thin tube (catheter) to empty your bladder. A catheter is a hollow tube that you pass through your urethra. ? Procedures to stimulate the nerves that control your bladder. ? Surgery, if other treatments do not help. Follow these instructions at home: Lifestyle ? Keep a bladder diary to find out which foods, liquids, or activities make your symptoms worse. ? Use your bladder diary to schedule bathroom trips. If you are away from home, plan to be near a bathroom when your schedule says you will need one. ? Limit beverages that stimulate urination. These include soda, coffee, and tea. ? After urinating, wait a few minutes and try again. ? Make sure you urinate just before you leave the house and just before you go to bed. Kegel exercises Do Kegel exercises to strengthen the muscles that control the passing of urine. These muscles are the ones you use to try to hold urine when you need to urinate. To do Kegel exercises: 1. Squeeze your pelvic floor muscles tight, as if you are trying to stop the flow of urine. You should feel a tight lift in your rectal area. If you are female, you should also feel a tightness in your vaginal area. Keep your stomach, buttocks, and legs relaxed. 2. Hold the muscles tight for 5?10 seconds. 3. Relax your muscles for the same amount of time. 4. Repeat 10 times. Repeat this exercise 3 times a day or as many times as told by your health care provider. General instructions ? Take [id number] and prescription medicines only as told by your health care provider. ? Keep all follow-up visits. This is important. Contact a health care provider if: ? You are having a hard time controlling your symptoms. ? Your symptoms are getting worse. ? You have signs of a urinary tract infection. These may include: ? A burning feeling when you urinate. ? Fever or chills. ? Cloudy or bloody urine. (more content not included)... Normal [facility] Urology Office/Clinic Noteon 08-07-2022 Urology Office/Clinic Note Chief Complaint Pt is here for 1 month f/u HPI Staff Jamari is a 82 y.o. female here for 1 month follow up. Previous Dx: adrenal nodule, left adrenal mass, neurogenic bladder, urinary retention, UTI. S/P cysto/UD done on 05/13/12. Pt states home health changed her catheter last on 07/27/22. Pt states she just finished 14 day course antibiotic treatment for UTI. Dysuria: denies Incomplete bladder emptying: Ribeiro Hematuria: denies Leaking: denies History of Present Illness Tests reviewed: none. I have reviewed the previous health record information and history for this patient from Dr. Hernandez. I have reviewed and verified the staff HPI to be accurate for this encounter. There have been no associated fever, chills, flank pain, or blood in the urine. Denies any urinary infections since last encounter. Review of Systems PHQ Score Initial Depression Screen Score: 0 ROS - Provider Constitutional: denies weight loss, denies hot flashes. Eyes: denies eye problems. Gastrointestinal: denies nausea, denies vomiting. Cardiovascular: denies chest pain or angina. Integumentary: no dryness Musculoskeletal: denies musculoskeletal symptoms. ENMT: denies otolaryngeal symptoms. Respiratory: no shortness of breath. Heme/Lymph: denies easy bleeding tendency, denies easy bruising tendency. Psychiatric: no confusion, no anxiety. Genitourinary: See HPI. Physical Exam Vitals & Measurements HR: 67(Peripheral) BP: 132/64 HT: 65 in HT: 165 cm WT: 68 kg WT: 149.6 lb BMI: 24.98 General Appearance: alert , no acute distress, well nourished, well developed female. Genitourinary: bladder nonpalpable, no flank pain. Ribeiro catheter to gravity Assessment/Plan 1. Neurogenic bladder (N31.9: Neuromuscular dysfunction of bladder, unspecified) Pt had Polio at age 3 and has occult Spinal Bifida, denies lifelong issues with this. Being worked up for other neurologic issues such as MS. Suspected per cysto at [facility] in 2019 for gross hematuria. 3+ trabeculations. Hematuria workup negative. Unable to CIC, has tried in the past, has tremor. ICIQ-SF 0. No sample provided for UA today, pt has ribeiro. Last cath change 07/27/22 by HH. Rediscussed cath plug for bladder retraining, SP tube after bowel cleanout, SNM, or leaving indwelling ribeiro. Pt prefers to not make any changes and leave indwelling ribeiro in. Desires voiding trial with each catheter exchange. Follow up 3-4 wks for below or sooner if needed. Pt understands and agrees with plan. -Voiding trial around 08/26/22 at next cath change. -UDS in future once available. -Cont bowel regimen (significant constipation on CT scan) 2. Urinary retention (R33.9: Retention of urine, unspecified) Pt had Ribeiro placed at [facility] on 06/02/22. Cath placed on 07/01/22 PVR > 600cc after failed voiding trial Pt had Ribeiro changed on 06/11/2022 at [facility]. Pt has a tremor and does not feel like she can perform CIC See #1. -Bowel regimen 3. UTI (urinary tract infection) (N39.0: Urinary tract infection, site not specified) Risks of recurrence given incomplete emptying. Pt states she just finished 14 day course antibiotic treatment for UTI. UCx 07/23/22 TB - >100,000 S. marcescens and >100,000 P. arginosa. Resistant to Cefazolin, Macrobid. -Will give script for prophy abx for pt to take the morning of cath changes. Cipro 250 mg, to take one tab the morning of cath exchanges x 6 ct. Rx sent to [facility]. Do not take for UTI. -Cranberry pills, bowel regimen Follow-up With When Contact Information David WELLS, Ivana Kirby, URL, URO Additional Instructions: Voiding trial around 08/26/22 at next cath change. Patient Education Neurogenic Bladder I, Lily Sood, personally scribed for Dr. Hernandez on 08/07/2022 11:44:55. . Documentation recorded by the scribe, Lily Sood, accurately reflects the services(s) I performed and decisions made by me. Authenticated by Dr. Hernandez on 08/07/2022 13:46:18. Problem List/Past Medical History Ongoing Adrenal nodule Anemia Arthritis DM (diabetes mellitus) Esophageal erosions Fatty liver disease, nonalcoholic HTN (hypertension) Left adrenal mass Mild anxiety Mixed hyperlipidemia Neurogenic bladder Osteopenia Postpolio syndrome Recurrent major depression Urinary retention UTI (urinary tract infection) Historical Anxiety Arthritis dm Elevated liver enzymes level High cholesterol HTN - Hypertension Kidney stone Procedure/Surgical History Cystourethroscopy with dilation of urethral stricture (05/13/2012), Appendectomy, Arthroplasty of right shoulder, Bilateral cataracts, Colonoscopy, Hysterectomy, Tubal ligation. Medications Abilify 2 mg Tab, Oral, Daily alprazolam 0.25 mg Tab, 0.25 mg= 1 tab(s), Oral, BID, PRN, 1 refills amantadine 100 mg Cap, Oral, BID aspirin 81 mg Chew Tab, Chewed, Daily Ativan 0.5 mg Tab, Oral, q8hr Cipro 250 mg Tab, 250 mg= 1 tab(s), Oral, Once (more content not included)... Normal [facility] Comment on above: Result Comment: Elec tronically Signed By: David WELLS, Ivana Kirby\.br\Date and Time Signed: 08/07/22 13:46 EDT\.br\Electronically Co-Signed By: Lily Sood\.br\Date and Time Co-Signed: 08/07/22 11:45 EDT C reactive protein [Mass/vol ume] in Serum or PlasmaOrdered By: Johann Dolan on 07-30-2022 CRP [Mass/Vol] < 0.5 mg/dL 0.0-0.5 [facility] C-Reactive Proteinon 023 CRP [Mass/Vol] mg/L Normal 0.0-0.5 [facility] Comment on above: Result Comment: PERF ORMED BY: [place] [address] PATHOLOGIST ASSISTANT AUDITOR LILLY LOTT M.D. Performed By: #### C K, CRP, CMP, CBC, ESR, TSH3 #### [address] #### ALDOLASE #### [facility] , Creatine Kinaseon 07-30-2022 CK [Catalytic activity/Vol] 344 U/L High [facility] Comment on above: Result Comment: PERF ORMED BY: [place] [address] PATHOLOGIST ASSISTANT AUDITOR ILLLY LOTT M.D. Performed By: #### S VICENTA COVID-19 KATELYN #### [address] Creatine kinase [Enzymatic a ctivity/volume] in Serum or PlasmaOrdered By: Johann Dolan on 07-30-2022 CK [Catalytic activity/Vol] 344 U/L [facility] Erythrocyte Sedimentation Ra yvonne 07-30-2022 ESR (Bld) [Velocity] 13 mm/h Normal 0-29 [facility] Comment on above: Result Comment: PERF ORMED BY: [place] [address] PATHOLOGIST ASSISTANT AUDITOR LILLY LOTT M.D. Performed By: #### S VICENTA COVID-19 KATELYN #### [address] Erythrocyte sedimentation ra te by Photometric methodOrdered By: Johann Dolan on 07-30-2022 ESR Photometric method (Bld) [Velocity] 13 mm/hr 0-29 [facility] Ionized Calciumon 07-30-2022 Ionized Calcium 4.9 mg/dL Normal 4.5-5.6 [facility] Comment on above: Result Comment: Perf ormed at: - [facility] [id number] Substation Operator Transforming: Reggie Lazcano PhD, Phone: [phone] PERFORMED BY: [place] [address] PATHOLOGIST ASSISTANT AUDITOR LILLY LOTT M.D. Performed By: #### C K, CRP, CMP, CBC, ESR, TSH3 #### [facility] [address] [place] [address] #### ALDOLASE #### [facility] , Parathyrin.intact [Mass/volu me] in Serum or PlasmaOrdered By: Johann Dolan on 07-30-2022 Parathyrin.intact [Mass/Vol] 34.7 pg/mL [facility] Parathyroid Hormone Intacton 07-30-2022 Parathyroid Hormone Intact 34.7 pg/mL Normal [facility] Comment on above: Result Comment: PERF ORMED BY: [place] [address] PATHOLOGIST ASSISTANT AUDITOR LILLY LOTT M.D. Performed By: #### S LAURA YADAV #### [address] Parathyroid Hormone Related Pron 07-30-2022 Parathyroid Hormone Related Pr <2.0 Normal . [facility] Comment on above: Result Comment: This test was developed and its performance characteristics determined by [facility]. It has not been cleared or approved by the Food and Drug Administration. Reference Range: All Ages: <2.0 The PTHrP assay should not be used to exclude cancer or screen tumor patients for humoral hypercalcemia of malignancy (HHM). The results should always be assessed in conjunction with the patient's medical history, clinical examination, and other findings. If test results are clinically discordant, please contact the laboratory. Performed at: [facility] [address] [place] [id number] Substation Operator Transforming: Pawel Fong MD, Phone: [phone] Performed By: #### C K, CRP, CMP, CBC, ESR, TSH3 #### [facility] [address] #### ALDOLASE #### [facility] , Serum ionized calcium measur ement using ion specific electrode (mass/volume)Ordered By: Johann Dolan on 07-30-2022 Calcium.ionized ISE [Mass/Vol] 4.9 mg/dL 4.5-5.6 [facility] Comment on above: Performed at: [facility] [address] [place], [place] [id number] Director: Reggie Lazcano PhD, Phone: [phone] Serum or plasma parathyroid hormone related peptide (PTHrP) measurement (moles/volumeOrdered By: Johann Dolan on 07-30-2022 Parathyrin related protein [Moles/Vol] <2.0 pmol/L . [facility] Comment on above: This test was develo ped and its performance characteristicsdetermined by [facility]. It has not been cleared or approvedby the Food and Drug Administration.Reference Range:All Ages: <2.0The PTHrP assay should not be used to exclude cancer orscreen tumor patients for humoral hypercalcemia ofmalignancy (HHM). The results should always be assessed inconjunction with the patient's medical history, clinicalexamination, and other findings. If test results areclinically discordant, please contact the laboratory.Performed at: [facility] - [facility] [address] [place], [place] [id number] Director: Pawel Fong MD, Phone: [phone] Lab Reportson 07-29-2022 Lab Reports [id number] Normal [facility] CULTURE URINEon 07-28-2022 CULTURE URINE Isolate 1 Serratia marcescens >100,000 cfu/ml of Isolate 2 Pseudomonas aeruginosa >100,000 cfu/mL of ORGANISM 1 Serratia marcescens ANTIBIOTIC M.I.C RX STATUS Cefazolin <=4 R F Ceftazidime <=1 S F Ceftriaxone <=1 S F Ertapenem <=0.5 S F Amikacin <=2 S F Gentamicin <=1 S F Tobramycin <=1 S F Ciprofloxacin <=0.25 S F Levofloxacin <=0.12 S F Nitrofurantoin 32 R F Trimethoprim/Sulfamethoxazo le <=20 S F ORGANISM 2 Pseudomonas aeruginosa ANTIBIOTIC M.I.C RX STATUS Piperacillin/Tazobactam <=4 S F Ceftazidime <=1 S F Imipenem 2 S F Amikacin <=2 S F Gentamicin <=1 S F Tobramycin <=1 S F Ciprofloxacin <=0.25 S F Levofloxacin 0.25 S F Normal [facility] Comment on above: Performed By: #### U RCX #### [facility] [address] [place] [address] Dr. Dilip Cartagena UA RANDOM W/MICROSCOPICon BACTERIA LARGE Abnormal NONE SEEN [facility] Comment on above: Performed By: #### U RCX #### [facility] [address] [place] [address] Dr. Dilip Cartagena Bilirubin Ql (U) Negative Normal NEGATIVE [facility] Comment on above: Performed By: #### U RCX #### [facility] [address] [place] [address] Dr. Dilip Cartagena CA OX CRYSTALS FEW Normal [facility] Comment on above: Performed By: #### U RCX #### [facility] [address] [place] [address] Dr. Dilip Cartagena CAST NONE SEEN Normal NONE SEEN [facility] Comment on above: Performed By: #### U RCX #### [facility] [address] [place] [address] Dr. Dilip Cartagena Clarity (U) CLEAR Normal CLEAR [facility] Comment on above: Performed By: #### U RCX #### [facility] [address] [place] [address] Dr. Dilip Cartagena Color (U) LT. YELLOW Normal YELLOW [facility] Comment on above: Performed By: #### U RCX #### [facility] [address] [place] [address] Dr. Dilip Cartagena Crystals LM Nom (Urine sed) SEEN Abnormal NONE SEEN [facility] Comment on above: Performed By: #### U RCX #### [facility] [address] [address] [address] Dilip Cartagena Epithelial cells LM Ql (Urine sed) FEW Abnormal NONE SEEN /RARE [facility] Comment on above: Performed By: #### U RCX #### [facility] [address] [place] [address] Dr. Dilip Cartagena Glucose Ql (U) Negative Normal NEGATIVE [facility] Comment on above: Performed By: #### U RCX #### [facility] [address] [place] [address] Dr. Dilip Cartagena Hemoglobin Ql (U) SMALL Abnormal NEGATIVE [facility] Comment on above: Performed By: #### U RCX #### [facility] [address] [place] [address] Dr. Dilip Cartagena Ketones Ql (U) Negative Normal NEGATIVE [facility] Comment on above: Performed By: #### U RCX #### [facility] [address] [place] [address] Dr. Dilip Cartagena LEUKOCYTES LARGE Abnormal NEGATIVE [facility] Comment on above: Performed By: #### U RCX #### [facility] [address] [place] [address] Dr. Dilip Cartagena MUCOUS NONE SEEN Normal NONE SEEN [facility] Comment on above: Performed By: #### U RCX #### [facility] [address] [place] [address] Dr. Dilip Cartagena Nitrite Ql (U) Positive Abnormal NEGATIVE [facility] Comment on above: Performed By: #### U RCX #### [facility] [address] [place] [address] Dr. Dilip Cartagena pH (U) 5.5 [pH] Normal 5-9 [facility] Comment on above: Performed By: #### U RCX #### [facility] [address] [place] [address] Dr. Dilip Cartagena RBC 0-2 Normal 0-2 [facility] Comment on above: Performed By: #### U RCX #### [facility] [address] [address] [address] Dilip Cartagena SPEC GRAVITY 1.020 Normal 1.005-<=1. 025 [facility] Comment on above: Performed By: #### U RCX #### [facility] [address] [address] [address] Dilip Cartagena UA PROTEIN 30 mg/dl Abnormal NEGATIVE/ TRACE [facility] Comment on above: Performed By: #### U RCX #### [facility] [address] [address] [address] Dilip Cartagena Urobilinogen Qn (U) 0.2 {Hallie'U}/dL Normal 0.2 - 1. 0 [facility] Comment on above: Performed By: #### U RCX #### [facility] [address] [address] [address] Dilip Cartagena WBC 20-50 Abnormal NONE SEEN [facility] Comment on above: Performed By: #### U RCX #### [facility] [address] [address] [address] Dilip Cartagena Ambulatory Visit Summaryon 0 07-15-2022 Ambulatory Visit Summary JAMARI ELIZALDE :1940 Visit Date:07/15/2022 Ambulatory Visit Instructions Your Diagnosis Neurogenic bladder Urinary retention Adrenal nodule UTI (urinary tract infection) Your Care Team Attending Physician - Ivana Hernandez MD Primary Care Physician - FOZIA TOBAR CNP This Is Your Medications List Contact prescribing physician if questions or concerns alprazolam (alprazolam 0.25 mg Tab) amantadine (amantadine 100 mg Cap) amlodipine (Norvasc 2.5 mg Tab) aripiprazole (Abilify 2 mg Tab) aspirin (aspirin 81 mg Chew Tab) cranberry docusate (docusate sodium 100 mg Cap) glimepiride (glimepiride 1 mg Tab) lidocaine topical (lidocaine 5% patch) lisinopril (lisinopril 20 mg Tab) lorazepam (Ativan 0.5 mg Tab) melatonin (melatonin 10 mg oral tablet) metformin (metformin 500 mg ER Tab) omeprazole (omeprazole 40 mg Cap-DR) ondansetron (Zofran 4 mg Tab) risperidone (Risperdal 0.5 mg Tab) sertraline (sertraline 25 mg Tab) trazodone (traZODONE 100 mg Tab) Procedures Performed Cystourethroscopy with dilation of urethral stricture (05/13/2012), Appendectomy, Arthroplasty of right shoulder, Bilateral cataracts, Colonoscopy, Hysterectomy, Tubal ligation. Discharge Vitals Heart Rate (Peripheral) 108 Blood Pressure 144/67 Height 165 cm Height 65 in Weight 68.6 kg Weight 150.92 lb BMI 25.2 What to do next You Need to Schedule the Following Appointments Follow Up with David WELLS, JACKY Barrera, URO When: Where: [address] [place] [phone] Medications What How Much When Why Instructions Unchanged alprazolam (alprazolam 0.25 mg Tab) 1 Tablets By Mouth 2 times a day as needed for for anxiety Mild anxiety Contact prescribing physician if questions or concerns Unchanged amantadine (amantadine 100 mg Cap) By Mouth 2 times a day Contact prescribing physician if questions or concerns Unchanged amlodipine (Norvasc 2.5 mg Tab) Contact prescribing physician if questions or concerns Unchanged aripiprazole (Abilify 2 mg Tab) By Mouth Every day Contact prescribing physician if questions or concerns Unchanged aspirin (aspirin 81 mg Chew Tab) Chewed Every day Contact prescribing physician if questions or concerns Unchanged cranberry Contact prescribing physician if questions or concerns Unchanged docusate (docusate sodium 100 mg Cap) 1 Capsules By Mouth 2 times a day as needed for for constipation Contact prescribing physician if questions or concerns Unchanged glimepiride (glimepiride 1 mg Tab) By Mouth Every day Contact prescribing physician if questions or concerns Unchanged lidocaine topical (lidocaine 5% patch) Topical Every day Contact prescribing physician if questions or concerns Unchanged lisinopril (lisinopril 20 mg Tab) Contact prescribing physician if questions or concerns Unchanged lorazepam (Ativan 0.5 mg Tab) By Mouth Every 8 hours Contact prescribing physician if questions or concerns Unchanged melatonin (melatonin 10 mg oral tablet) By Mouth Once a day (at bedtime) Contact prescribing physician if questions or concerns Unchanged metformin (metformin 500 mg ER Tab) By Mouth Every day Contact prescribing physician if questions or concerns Unchanged omeprazole (omeprazole 40 mg Cap-DR) Contact prescribing physician if questions or concerns Unchanged ondansetron (Zofran 4 mg Tab) By Mouth Every 8 hours Contact prescribing physician if questions or concerns Unchanged risperidone (Risperdal 0.5 mg Tab) See instructions Recurrent major depression 1-2 tabs po at bedtime Contact prescribing physician if questions or concerns Unchanged sertraline (sertraline 25 mg Tab) 1 Tablets By Mouth Every day total daily dose is 125mg Contact prescribing physician if questions or concerns Unchanged trazodone (traZODONE 100 mg Tab) By Mouth Contact prescribing physician if questions or concerns Allergies No Known Medication Allergies Problems Ongoing - Any problem that you are currently receiving treatment for. Adrenal nodule Anemia Arthritis DM (diabetes mellitus) Esophageal erosions Fatty liver disease, nonalcoholic HTN (hypertension) Left adrenal mass Mild anxiety Mixed hyperlipidemia Neurogenic bladder Osteopenia Postpolio syndrome Recurrent major depression Urinary retention UTI (urinary tract infection) Historical - Any problem that you are no longer receiving treatment for. Anxiety Arthritis dm Elevated liver enzymes level High cholesterol HTN - Hypertension Kidney stone [employer] Neurogenic Bladder Neurogenic bladder is a bladder control disorder. It is usually caused by problems with the nerves that control the bladder. Your brain sends signals through your spinal cord to the muscles in your bladder that start and stop urine flow. If you have neurogenic bladder, the nerves and muscles do not work together the way they should. This condit (more content not included)... Normal [facility] Patient Educationon 07-16-19 Patient Education Urology Neurogenic Bladder Neurogenic bladder is a bladder control disorder. It is usually caused by problems with the nerves that control the bladder. Your brain sends signals through your spinal cord to the muscles in your bladder that start and stop urine flow. If you have neurogenic bladder, the nerves and muscles do not work together the way they should. This condition may make the bladder overactive, meaning you have trouble holding urine. In other cases, it may make the bladder underactive, meaning you have trouble passing urine. What are the causes? This condition may be caused by any kind of nerve damage or condition that disrupts the signals from your brain to your bladder. Many things can cause these nerve problems, including: ? A disease that affects the nervous system, such as: ? Alzheimer disease. ? Cerebral palsy. ? Multiple sclerosis. ? Diabetes. ? Parkinson disease. ? Damage to your brain or spinal cord. This can come from: ? Trauma. ? Tumors. ? Infection. ? Surgery. ? Alcohol abuse. ? Stroke. ? A congenital disability that affects the spinal cord. What increases the risk? You are more likely to develop this condition if you have nerve damage or a nerve disorder. What are the signs or symptoms? Signs and symptoms of this condition include: ? Leaking or gushing urine (incontinence). ? A sudden, strong urge to pass urine (urgency). ? Frequent urination during the day and night. ? Being unable to empty your bladder completely (urinary retention). ? Frequent urinary tract infections. How is this diagnosed? This condition may be diagnosed based on: ? Your symptoms and medical history. ? A physical exam. ? Results of a bladder diary. You may be asked to keep a record of your bladder symptoms and the times that you urinate. You may also have tests, such as: ? A urine test to check for infection. ? A bladder scan after you urinate to see how much urine is left in your bladder. ? Tests to measure your urine flow and see how well the flow is controlled (urodynamic tests). ? A procedure that uses a small device with a camera to look through your urethra into your bladder (cystoscopy). A health care provider who specializes in the urinary tract (urologist) may do this test. ? Imaging tests of your brain or spine, such as MRI or CT. How is this treated? Treatment for this condition depends on the cause and the symptoms that you have. Work closely with your health care provider to find the treatments that will improve your quality of life. Treatment options include: ? Learning ways to control when you urinate, such as: ? Urinating at scheduled times. ? Training yourself to delay urination. ? Doing exercises to strengthen the muscles that control urine flow (Kegel exercises). ? Avoiding foods or drinks that make your symptoms worse. ? Taking medicines to: ? Stimulate an underactive bladder. ? Relax an overactive bladder. ? Treat a urinary tract infection. ? Learning how to use a thin tube (catheter) to empty your bladder. A catheter is a hollow tube that you pass through your urethra. ? Procedures to stimulate the nerves that control your bladder. ? Surgery, if other treatments do not help. Follow these instructions at home: Lifestyle ? Keep a bladder diary to find out which foods, liquids, or activities make your symptoms worse. ? Use your bladder diary to schedule bathroom trips. If you are away from home, plan to be near a bathroom when your schedule says you will need one. ? Limit your drinking of beverages that stimulate urination. These include soda, coffee, and tea. ? After urinating, wait a few minutes and try again (double voiding). ? Make sure you urinate just before you leave the house and just before you go to bed. Kegel exercises Do Kegel exercises to strengthen the muscles that control the passing of urine. These muscles are the ones you use to try to hold urine when you need to urinate. To do Kegel exercises: 1. Squeeze your pelvic floor muscles tight, as if you are trying to stop the flow of urine. You should feel a tight lift in your rectal area. If you are female, you should also feel a tightness in your vaginal area. Keep your stomach, buttocks, and legs relaxed. 2. Hold the muscles tight for 5?10 seconds. 3. Relax your muscles for the same amount of time. 4. Repeat 10 times. Repeat this exercise 3 times a day or as many times as told by your health care provider. General instructions ? Take ipip-liz-xxhnhjk and prescription medicines only as told by your health care provider. ? Keep all follow-up visits as told by your health care provider. This is important. Contact a health care provider if: ? You are having a hard time controlling your symptoms. ? Your symptoms are getting worse. ? You have signs of a urinary tract infection. These may include: ? A burning feeling when you urinate. ? Chills. ? (more content not included)... Normal [facility] Urology Office/Clinic Noteon 07-15-2022 Urology Office/Clinic Note Chief Complaint 2 week follow up HPI Staff Pt currently has a cath was replaced at last visit on 07/01/22. 2wk PVR following ribeiro removal on 07/01/22. Catheter inserted 06/02/22 @ [facility] due to Urinary retention/NGB. Additional DX:Adrenal Nodule, UTI & DM Per last encounter possible Uro's once available. Recommended timed voids. *No Urology Medications. Dysuria: denies pain or burning w/cath, pt states she has been urinating around the cath Incomplete bladder emptying: yes pt has cath Hematuria: denies visible blood in bag Leaking: yes twice Abdominal pain: denies Flank pain: denies History of Present Illness I have reviewed and verified the staff HPI to be accurate for this encounter. Review of Systems PHQ Score Initial Depression Screen Score: 0 ROS - Provider Constitutional: denies weight loss, denies hot flashes. Eyes: denies eye problems. Gastrointestinal: denies nausea, denies vomiting. Cardiovascular: denies chest pain or angina. Integumentary: no dryness Musculoskeletal: denies musculoskeletal symptoms. ENMT: denies otolaryngeal symptoms. Respiratory: no shortness of breath. Heme/Lymph: denies easy bleeding tendency, denies easy bruising tendency. Psychiatric: no confusion, no anxiety. Genitourinary: see HPI Physical Exam Vitals & Measurements HR: 108(Peripheral) BP: 144/67 HT: 65 in HT: 165 cm WT: 68.6 kg WT: 150.92 lb BMI: 25.2 General Appearance: alert , no acute distress, well nourished, well developed female. Genitourinary: bladder nonpalpable, no flank pain. Ribeiro to gravity Assessment/Plan 1. Neurogenic bladder (N31.9: Neuromuscular dysfunction of bladder, unspecified) Pt had Polio at age 3 and has occult Spinal Bifida, denies lifelong issues with this Being worked up for other neurologic issues such as MS Suspected per cysto at [facility] in 2019 for gross hematuria. 3+ trabeculations. Hematuria workup negative. Discussed tx options for neurogenic bladder. Discussed SPT vs indwelling ribeiro vs CIC. Unable to CIC, has tried in the past. -UDS in future once available. Discussed SNM (sacral neuromodulation), however given spina bifida, recommend referral back to [facility] to see if still candidate for SNM. Pt will think about options. 2. Urinary retention (R33.9: Retention of urine, unspecified) Pt currently has a cath was replaced at last visit on 07/01/22 PVR > 600cc after failed voiding trial Pt had Ribeiro placed at [facility] on 06/02/2022 Pt had Ribeiro changed on 06/11/2022 at [facility] Pt has a tremor and does not feel like she can perform CIC Discussed possible S/P tube placement. (on CT scan bowel in overlying suprapubic region, hx of constipation, will need clean out and repeat CT scan to see if improved prior to attempted SPT placement under anesthesia, US guided vs referral to IR for placement under US) If pt does not want a cath bag we can give her a cath plug and she will have to drain her bladder every 2-3 hours. Possibility of doing SNM to help bladder function, we would send her to [facility] to be evaluated by them per above Pt will speak with her daughter and PCP 3. Adrenal nodule (E27.8: Other specified disorders of adrenal gland) Left -Seen on CT Scan done on 06/02/2022 at [facility] Pt states that she has known about it for years, states it is stable. Declined metabolic workup at this time 4. UTI (urinary tract infection) (N39.0: Urinary tract infection, site not specified) UTI (asymptomatic) 05/05/2022[facility] 06[facility]/20[facility] - [facility]eiro exchange Discussed risks of recurrence given incomplete emptying, denies complicated UTIs Follow-up With When Contact Information David WELLS, Ivana Kirby, URL, [facility] [address], [place] [address]- [phone] Additional Instructions: Pt will f/u in 1 month Patient Education Neurogenic Bladder I, Lucretia Fuchs , personally scribed for Dr. Hernandez on 07/15/2022 11:47:22. . Documentation recorded by the scribe, Lucretia Fuchs, accurately reflects the services(s) I performed and decisions made by me. Authenticated by Dr. Hernandez on 07/15/2022 14:00:23. Problem List/Past Medical History Ongoing Adrenal nodule Anemia Arthritis DM (diabetes mellitus) Esophageal erosions Fatty liver disease, nonalcoholic HTN (hypertension) Left adrenal mass Mild anxiety Mixed hyperlipidemia Neurogenic bladder Osteopenia Postpolio syndrome Recurrent major depression Urinary retention UTI (urinary tract infection) Historical Anxiety Arthritis dm Elevated liver enzymes level High cholesterol HTN - Hypertension Kidney stone Procedure/Surgical History Cystourethroscopy with dilation of urethral stricture (05/13/2012), Appendectomy, Arthroplasty of right shoulder, Bilateral cataracts, Colonoscopy, Hysterectomy, Tubal ligation. Medications Abilify 2 mg Tab, Oral, Daily alprazolam 0.25 mg Tab, 0.25 mg= 1 tab(s), Oral, BID, PRN, 1 refills amantadine 100 mg Cap, Oral, BID aspirin (more content not included)... [facility] Comment on above: Result Comment: Elec tronically Signed By: Ivana Hernandez MD\.br\Date and Time Signed: 07/15/22 14:00 EDT\.br\Electronically Co-Signed By: Lucretia Fuchs MA\.br\Date and Time Co-Signed: 07/15/22 11:49 EDT\.br\Electronically Co-Signed By: Lucretia Fuchs MA\.br\Date and Time Co-Signed: 07/15/22 11:50 EDT Lab Reportson 07-06-2022 Lab Reports [id number]:[id number] [facility] Ambulatory Visit Summaryon 0 07-01-2022 Ambulatory Visit Summary JAMARI ELIZALDE :1940 Visit Date:07/01/2022 Ambulatory Visit Instructions Your Diagnosis Urinary retention Your Care Team Attending Physician - SEBASTIÁN BILL PA-C Primary Care Physician - FOZIA TOBAR CNP This Is Your Medications List alprazolam (alprazolam 0.25 mg Tab) amantadine (amantadine 100 mg Cap) amlodipine (Norvasc 2.5 mg Tab) aripiprazole (Abilify 2 mg Tab) aspirin (aspirin 81 mg Chew Tab) cranberry docusate (docusate sodium 100 mg Cap) glimepiride (glimepiride 1 mg Tab) lidocaine topical (lidocaine 5% patch) lisinopril (lisinopril 20 mg Tab) lorazepam (Ativan 0.5 mg Tab) melatonin (melatonin 10 mg oral tablet) metformin (metformin 500 mg ER Tab) omeprazole (omeprazole 40 mg Cap-DR) ondansetron (Zofran 4 mg Tab) risperidone (Risperdal 0.5 mg Tab) sertraline (sertraline 25 mg Tab) trazodone (traZODONE 100 mg Tab) Procedures Performed Cystourethroscopy with dilation of urethral stricture (05/13/2012), Appendectomy, Arthroplasty of right shoulder, Bilateral cataracts, Colonoscopy, Hysterectomy, Tubal ligation. What to do next Scheduled Follow-Up Appointments Wednesday 1:00 PM EDT Where: [facility] Ambulatory Visit Summary JAMARI ELIZALDE :1940 Visit Date:07/01/2022 Ambulatory Visit Instructions Your Diagnosis Urinary retention Adrenal nodule UTI (urinary tract infection) DM (diabetes mellitus) Neurogenic bladder Your Care Team Attending Physician - Ivana Hernandez MD Primary Care Physician - FOZIA TOBAR CNP This Is Your Medications List Contact prescribing physician if questions or concerns alprazolam (alprazolam 0.25 mg Tab) amantadine (amantadine 100 mg Cap) amlodipine (Norvasc 2.5 mg Tab) aripiprazole (Abilify 2 mg Tab) aspirin (aspirin 81 mg Chew Tab) cranberry docusate (docusate sodium 100 mg Cap) glimepiride (glimepiride 1 mg Tab) lidocaine topical (lidocaine 5% patch) lisinopril (lisinopril 20 mg Tab) lorazepam (Ativan 0.5 mg Tab) melatonin (melatonin 10 mg oral tablet) metformin (metformin 500 mg ER Tab) omeprazole (omeprazole 40 mg Cap-DR) ondansetron (Zofran 4 mg Tab) risperidone (Risperdal 0.5 mg Tab) sertraline (sertraline 25 mg Tab) trazodone (traZODONE 100 mg Tab) Procedures Performed Cystourethroscopy with dilation of urethral stricture (05/13/2012), Appendectomy, Arthroplasty of right shoulder, Bilateral cataracts, Colonoscopy, Hysterectomy, Tubal ligation. Discharge Vitals Heart Rate (Peripheral) 90 Blood Pressure 118/61 Height 165 cm Height 65 in Weight 47 kg Weight 103.4 lb BMI 17.26 What to do next Scheduled Follow-Up Appointments Wednesday 1:00 PM EDT Where: [facility] Patient Educationon 07-01-20 23 Patient Education Urology Neurogenic Bladder Neurogenic bladder is a bladder control disorder. It is usually caused by problems with the nerves that control the bladder. Your brain sends signals through your spinal cord to the muscles in your bladder that start and stop urine flow. If you have neurogenic bladder, the nerves and muscles do not work together the way they should. This condition may make the bladder overactive, meaning you have trouble holding urine. In other cases, it may make the bladder underactive, meaning you have trouble passing urine. What are the causes? This condition may be caused by any kind of nerve damage or condition that disrupts the signals from your brain to your bladder. Many things can cause these nerve problems, including: ? A disease that affects the nervous system, such as: ? Alzheimer disease. ? Cerebral palsy. ? Multiple sclerosis. ? Diabetes. ? Parkinson disease. ? Damage to your brain or spinal cord. This can come from: ? Trauma. ? Tumors. ? Infection. ? Surgery. ? Alcohol abuse. ? Stroke. ? A congenital disability that affects the spinal cord. What increases the risk? You are more likely to develop this condition if you have nerve damage or a nerve disorder. What are the signs or symptoms? Signs and symptoms of this condition include: ? Leaking or gushing urine (incontinence). ? A sudden, strong urge to pass urine (urgency). ? Frequent urination during the day and night. ? Being unable to empty your bladder completely (urinary retention). ? Frequent urinary tract infections. How is this diagnosed? This condition may be diagnosed based on: ? Your symptoms and medical history. ? A physical exam. ? Results of a bladder diary. You may be asked to keep a record of your bladder symptoms and the times that you urinate. You may also have tests, such as: ? A urine test to check for infection. ? A bladder scan after you urinate to see how much urine is left in your bladder. ? Tests to measure your urine flow and see how well the flow is controlled (urodynamic tests). ? A procedure that uses a small device with a camera to look through your urethra into your bladder (cystoscopy). A health care provider who specializes in the urinary tract (urologist) may do this test. ? Imaging tests of your brain or spine, such as MRI or CT. How is this treated? Treatment for this condition depends on the cause and the symptoms that you have. Work closely with your health care provider to find the treatments that will improve your quality of life. Treatment options include: ? Learning ways to control when you urinate, such as: ? Urinating at scheduled times. ? Training yourself to delay urination. ? Doing exercises to strengthen the muscles that control urine flow (Kegel exercises). ? Avoiding foods or drinks that make your symptoms worse. ? Taking medicines to: ? Stimulate an underactive bladder. ? Relax an overactive bladder. ? Treat a urinary tract infection. ? Learning how to use a thin tube (catheter) to empty your bladder. A catheter is a hollow tube that you pass through your urethra. ? Procedures to stimulate the nerves that control your bladder. ? Surgery, if other treatments do not help. Follow these instructions at home: Lifestyle ? Keep a bladder diary to find out which foods, liquids, or activities make your symptoms worse. ? Use your bladder diary to schedule bathroom trips. If you are away from home, plan to be near a bathroom when your schedule says you will need one. ? Limit your drinking of beverages that stimulate urination. These include soda, coffee, and tea. ? After urinating, wait a few minutes and try again (double voiding). ? Make sure you urinate just before you leave the house and just before you go to bed. Kegel exercises Do Kegel exercises to strengthen the muscles that control the passing of urine. These muscles are the ones you use to try to hold urine when you need to urinate. To do Kegel exercises: 1. Squeeze your pelvic floor muscles tight, as if you are trying to stop the flow of urine. You should feel a tight lift in your rectal area. If you are female, you should also feel a tightness in your vaginal area. Keep your stomach, buttocks, and legs relaxed. 2. Hold the muscles tight for 5?10 seconds. 3. Relax your muscles for the same amount of time. 4. Repeat 10 times. Repeat this exercise 3 times a day or as many times as told by your health care provider. General instructions ? Take [id number]-[id number] and prescription medicines only as told by your health care provider. ? Keep all follow-up visits as told by your health care provider. This is important. Contact a health care provider if: ? You are having a hard time controlling your symptoms. ? Your symptoms are getting worse. ? You have signs of a urinary tract infection. These may include: ? A burning feeling when you urinate. ? Chills. ? (more content not included)... Normal [facility] [place] 07-01-2022 Screens [id number]:[id number] Normal [facility] PTH INTACTon 06-20-2022 PTH, Intact 28 pg/mL Normal 15-65 [facility] Comment on above: Performed By: #### L IPID BMP, NA #### [facility] [address] [place] [address] Dr. Dilip Cartagena GGTon 06-19-2022 Gamma glutamyl transferase [Catalytic activity/Vol] 22 U/L Normal 8-55 [facility] Comment on above: Performed By: #### U RCX #### [facility] [address] [place] [address] Dr. Dilip Cartagena LIPID PROFILEon 06-19-2022 CHOL-HDL RATIO NORM SEE BELOW Normal [facility] Comment on above: Result Comment: 3.3 - 4.4 LOW RISK 4.4 - 7.1 AVERAGE RISK 7.1 - 11.0 MODERATE RISK >11.0 HIGH RISK Performed By: #### L IPID BMP, NA #### [facility] [address] [place] [address] Dr. Dilip Cartagena Cholesterol [Mass/Vol] 163 mg/dL Normal <=200 [facility] Comment on above: Performed By: #### L IPID, BMP, NA #### [facility] [address] [place] [address] Dr. Dilip Cartagena Cholesterol in HDL [Mass/Vol] 46 mg/dL Normal 40-60 [facility] Comment on above: Performed By: #### L IPID, BMP, NA #### [facility] [address] [place] [address] Dr. Dilip Cartagena Cholesterol in LDL [Mass/Vol] 101.6 mg/dL Normal [facility] Comment on above: Performed By: #### L IPID, BMP, NA #### [facility] [address] [place] [address] Dr. Dilip Cartagena Cholesterol.total/Chol esterol in HDL [Mass ratio] 3.5 {ratio} Normal [facility] Comment on above: Performed By: #### L IPID, BMP, NA #### [facility] [address] [place] [address] Dr. Dilip Cartagena HDL NORMAL > or = 60 mg/dl - LO W CARDIOVASCULAR RISK <40 mg/dl - HIGH CARDIOVASCULAR RISK Normal [facility] Comment on above: Performed By: #### L IPID, BMP, NA #### [facility] [address] [place] [address] Dr. Dilip Cartagena LDL CALC NORMAL SEE BELOW Normal [facility] Comment on above: Result Comment: <100 mg/dl OPTIMAL 100 - 129 mg/dl NEAR OR ABOVE OPTIMAL 130 - 159 mg/dl BORDERLINE HIGH 160 - 189 mg/dl HIGH >190 mg/dl VERY HIGH Performed By: #### L IPID, BMP, NA #### [facility] [address] [place] [address] Dr. Dilip Cartagena Triglyceride [Mass/Vol] 77 mg/dL Normal <=150 [facility] Comment on above: Performed By: #### L IPID BMP, NA #### [facility] [address] [place] [address] Dr. Dilip Cartagena VLDL CALC 15.4 mg/dL Normal [facility] Comment on above: Performed By: #### L IPID, BMP, NA #### [facility] [address] [place] [address] Dr. Dilip Cartagena PROF CHEM 8 (BAS METB)on Anion gap [Moles/Vol] 17.9 mmol/L Normal [facility] Comment on above: Performed By: #### L IPID, BMP, NA #### [facility] [address] [place] [address] Dr. Dilip Cartagena Calcium [Mass/Vol] 9.0 mg/dL Normal 8.5-10.1 [facility] Comment on above: Performed By: #### L IPID, BMP, NA #### [facility] [address] [place] [address] Dr. Dilip Cartagena Performed By: #### U RCX #### [facility] [address] [place] [address] Dr. Dilip Cartagena Chloride [Moles/Vol] 98 mmol/L Normal 98-107 [facility] Comment on above: Performed By: #### L IPID, BMP, NA #### [facility] [address] [place] [address] Dr. Dilip Cartaegna CO2 [Moles/Vol] 21.9 mmol/L Normal 21.0-32.0 [facility] Comment on above: Performed By: #### L IPID, BMP, NA #### [facility] [address] [place] [address] Dr. Dilip Cartagena Creatinine [Mass/Vol] 0.68 mg/dL Normal 0.55-1.02 [facility] Comment on above: Performed By: #### L IPID, BMP, NA #### [facility] [address] [place] [address] Dr. Dilip Cartagena EGFR-AF CHINESE >60 Normal >=60 [facility] Comment on above: Performed By: #### L IPID, BMP, NA #### [facility] [address] [place] [address] Dr. Dilip Cartagena EGFR-NON AF CHINESE >60 Normal >=60 [facility] Comment on above: Performed By: #### L IPID, BMP, NA #### [facility] [address] [place] [address] Dr. Dilip Cartagena Glucose [Mass/Vol] 114 mg/dL Critically high 74-106 T [facility] Comment on above: Performed By: #### L IPID, BMP, NA #### [facility] [address] [place] [address] Dr. Dilip Cartagena Potassium [Moles/Vol] 4.8 mmol/L Normal 3.5-5.1 [facility] Comment on above: Performed By: #### L IPID, BMP, NA #### [facility] [address] [address] [address] Dilip Cartagena Sodium [Moles/Vol] 133 mmol/L Critically low 136-145 [facility] Comment on above: Performed By: #### L IPID, BMP, NA #### [facility] [address] [address] [address] iDlip Cartagena Urea nitrogen [Mass/Vol] 17.0 mg/dL Normal 7.0-18.0 [facility] Comment on above: Performed By: #### L IPID, BMP, NA #### [facility] [address] [address] [address] Dilip Cartagena Urea nitrogen/Creatinine [Mass ratio] 25.0 mg/mg Normal [facility] Comment on above: Performed By: #### L IPID, BMP, NA #### [facility] [address] [address] [address] Dilip Cartagena NA (Sodium)on 06-15-2022 Sodium [Moles/Vol] 130 mmol/L Low 135-144 [facility] Comment on above: Performed By: #### N A #### [facility] [address] [place] [address] Substation Operator Transforming: Loretta Davis MD Sodiumon 06-15-2022 Interpretation and review of laboratory results Abnormal [facility] Sodium [Moles/Vol] 130 mmol/L Low 135 - 144 mmol/L [facility] NA (Sodium)on 06-12-2022 Sodium [Moles/Vol] 123 mmol/L Low 135-144 [facility] Comment on above: Performed By: #### N A #### [facility] [address] [place] [address] Substation Operator Transforming: Loretta Davis MD Sodiumon 06-12-2022 Interpretation and review of laboratory results Abnormal [facility] Sodium [Moles/Vol] 123 mmol/L Low 135 - 144 mmol/L [facility] Cult,Urineon 06-10-2022 Cult,Urine Specimen Description .CLEAN CATCH URINE Culture ENTEROCOCCUS FAECALIS >[id number] Report Status FINAL 06/10/2022 SUSCEPTIBILITY Organism ENTEROCOCCUS FAECALIS Method MARISOL Ampicillin <=2 SUSCEPTIBLE Ciprofloxacin 1 SUSCEPTIBLE Levofloxacin 1 SUSCEPTIBLE Nitrofurantoin <=16 SUSCEPTIBLE Tetracycline <=1 SUSCEPTIBLE Vancomycin 1 SUSCEPTIBLE Susceptible [facility] Comment on above: Performed By: #### U #### [facility] [address] [place], [place] [id number] Substation Operator Transforming: Lemuel Chan MD [facility] [address] [place] [address] Substation Operator Transforming: Loretta Davis MD Lipid Panelon 06-10-2022 Cholesterol [Mass/Vol] 190 mg/dL NINF - 200 mg/dL [facility] Comment on above: Cholesterol Guidelines: <200 Desirable 200-240 Borderline >240 Undesirable Cholesterol in HDL [Mass/Vol] 51 mg/dL 40 - PINF mg/dL [facility] Comment on above: HDL Guidelines: <40 Undesirable 40-59 Borderline >59 Desirable Cholesterol in LDL [Mass/Vol] 103 mg/dL 0 - 130 mg/dL [facility] Comment on above: LDL Guidelines: <100 Desirable 100-129 Near to/above Desirable 130-159 Borderline >159 Undesirable Direct (measured) LDL and calculated LDL are not interchangeable tests. Cholesterol.total/Chol esterol in HDL [Mass ratio] 3.7 {ratio} NINF - 5 [facility] Interpretation and review of laboratory results Abnormal [facility] Triglyceride [Mass/Vol] 179 mg/dL High NINF - 150 mg/dL [facility] Comment on above: Triglyceride Guidelines: <150 Desirable 150-199 Borderline 200-499 High >499 Very high Based on AHA Guidelines for fasting triglyceride, January 2012. [facility] Lipid Profileon 06-10-2022 Cholesterol [Mass/Vol] 190 mg/dL Normal <200 [facility] Comment on above: Result Comment: Cholesterol Guidelines: <200 Desirable 200-240 Borderline >240 Undesirable Performed By: #### T #### [facility] [address] [place] [address] Substation Operator Transforming: Loretta Davis MD #### LIPR #### [address] [place], [place] [id number] Substation Operator Transforming: Lemuel Chan MD Cholesterol in HDL [Mass/Vol] 51 mg/dL Normal >40 [facility] Comment on above: Result Comment: HDL Guidelines: <40 Undesirable 40-59 Borderline >59 Desirable Performed By: #### T SH #### [facility] [address] [place] [address] [address] [place], [place] [id number] Substation Operator Transforming: Loretta Davis MD #### LIPR #### [address] [id number] Substation Operator Transforming: Lemuel Chan MD Cholesterol in LDL [Mass/Vol] 103 mg/dL Normal 0-130 [facility] Comment on above: Result Comment: LDL Guidelines: <100 Desirable 100-129 Near to/above Desirable 130-159 Borderline >159 Undesirable Direct (measured) LDL and calculated LDL are not interchangeable tests. Performed By: #### T SH #### [facility] [address] [place] [address] Dr[address] [place], [place] [id number] Substation Operator Transforming: Loretta Davis MD #### LIPR #### [address] [address] Substation Operator Transforming: Lemuel Chan MD Cholesterol.total/Chol esterol in HDL [Mass ratio] 3.7 {ratio} Normal <5 [facility] Comment on above: Performed By: #### T SH #### [facility] [address] [place] [address] [address]. [place], [place] [id number] Substation Operator Transforming: Loretta Davis MD #### LIPR #### [address] [id number] Substation Operator Transforming: Lemuel Chan MD Triglyceride [Mass/Vol] 179 mg/dL High <150 [facility] Comment on above: Result Comment: Triglyceride Guidelines: <150 Desirable 150-199 Borderline 200-499 High >499 Very high Based on AHA Guidelines for fasting triglyceride, January 2012. Performed By: #### T SH #### [facility] [address] [place] [address] [place] [address] Substation Operator Transforming: Loretta Davis MD #### LIPR #### [facility] [address] [place], [place] [id number] Substation Operator Transforming: Lemuel Chan MD TSHon 06-10-2022 TSH Qn 1.20 m[IU]/L [facility] Thyroid Stim. Horm.on 2022 Thyroid Stim. Horm. 1.20 uIU/mL Normal 0.30-5.00 [facility] Comment on above: Performed By: #### T SH #### [address] [place] [address] Substation Operator Transforming: Loretta Davis MD #### LIPR #### [address] [place], [place] [id number] Substation Operator Transforming: Lemuel Chan MD CBCon 8 Erythrocyte distribution width (RBC) [Ratio] 13.1 % Normal 11.8-14.4 [facility] Comment on above: Performed By: #### C VU, CP #### [address] [place] [address] Substation Operator Transforming: Loretta Davis MD Hematocrit (Bld) [Volume fraction] 37.0 % Normal 36.3-47.1 [facility] Comment on above: Performed By: #### C BC, CP #### [facility] [address] [place] [address] Substation Operator Transforming: Loretta Davis MD Hemoglobin (Bld) [Mass/Vol] 12.6 g/dL Normal 11.9-15.1 [facility] Comment on above: Performed By: #### C BC, CP #### [facility] [address] [place] [address] [place] [address] Substation Operator Transforming: Loretta Davis MD MCH (RBC) [Entitic mass] 31.7 pg Normal 25.2-33.5 [facility] Comment on above: Performed By: #### C VU, CP #### [address] [place], [place] [id number] Substation Operator Transforming: Loretta Davis MD MCHC (RBC) [Mass/Vol] 34.1 g/dL Normal 28.4-34.8 [facility] Comment on above: Performed By: #### C VU, CP #### [address] [place] [address] Substation Operator Transforming: Loretta Davis MD MCV (RBC) [Entitic vol] 93.0 fL Normal 82.6-102.9 [facility] Comment on above: Performed By: #### C VU, CP #### [address] [place], [place] [id number] Substation Operator Transforming: Loretta Davis MD NRBC Automated 0.0 per 100 WBC Normal 0.0 [facility] Comment on above: Performed By: #### C VU, CP #### [address] [place], [place] [id number] Substation Operator Transforming: Loretta Davis MD Platelet mean volume (Bld) [Entitic vol] 8.4 fL Normal 8.1-13.5 [facility] Comment on above: Performed By: #### C VU, CP #### [address] [place], [place] [id number] Substation Operator Transforming: Loretta Davis MD Platelets (Bld) [#/Vol] 387 10*3/uL Normal 138-453 [facility] Comment on above: Performed By: #### C VU, CP #### [address] [place], [place] [id number] Substation Operator Transforming: Loretta Davis MD RBC (Bld) [#/Vol] 3.98 10*6/uL Normal 3.95-5.11 [facility] Comment on above: Performed By: #### C VU, CP #### [facility] [address] [place] [id number] Substation Operator Transforming: Loretta Davis MD WBC (Bld) [#/Vol] 9.6 10*3/uL Normal 3.5-11.3 [facility] Comment on above: Performed By: #### C VU, CP #### [facility] [address] [place] [address] Substation Operator Transforming: Loretta Davis MD Hematocrit (Bld) [Volume fraction] 37.0 % 36.3 - 47.1 % [facility] Hemoglobin (Bld) [Mass/Vol] 12.6 g/dL 11.9 - 15.1 g/dL [facility] MCH (RBC) [Entitic mass] 31.7 pg 25.2 - 33.5 pg [facility] MCHC (RBC) [Mass/Vol] 34.1 g/dL 28.4 - 34.8 g/dL [facility] MCV (RBC) [Entitic vol] 93.0 fL 82.6 - 102.9 fL [facility] NRBC Automated 0.0 0.0 per 100 WBC [facility] Platelet distribution width (Bld) [Ratio] 13.1 % 11.8 - 14.4 % [facility] Platelet mean volume (Bld) [Entitic vol] 8.4 fL 8.1 - 13.5 fL [facility] Platelets (Bld) [#/Vol] 387 10*3/uL [facility] RBC (Bld) [#/Vol] 3.98 10*6/uL 3.95 - 5.11 m/uL [facility] WBC (Bld) [#/Vol] 9.6 10*3/uL [facility] Comp Metabolic Profon 2022 Albumin [Mass/Vol] 4.1 g/dL Normal 3.5-5.2 [facility] Comment on above: Performed By: #### C BC, CP #### [facility] [address] [place], [place] [id number] Substation Operator Transforming: Loretta Davis MD Albumin/Glob Ratio 1.6 Normal 1.0-2.5 [facility] Comment on above: Performed By: #### C BC, CP #### [facility] [address] [place], [place] [id number] Substation Operator Transforming: Loretta Davis MD Alkaline Phos 68 U/L Normal 35-104 [facility] Comment on above: Performed By: #### C BC, CP #### [facility] [address] [place], [place] [id number] Substation Operator Transforming: Loretta Davis MD ALT [Catalytic activity/Vol] 27 U/L Normal 5-33 [facility] Comment on above: Performed By: #### C BC, CP #### [facility] [address] [place], [place] [id number] Substation Operator Transforming: Loretta Davis MD Anion gap [Moles/Vol] 13 mmol/L Normal 9-17 [facility] Comment on above: Performed By: #### C BC, CP #### [facility] [address] [place], [place] [id number] Substation Operator Transforming: Loretta Davis MD AST [Catalytic activity/Vol] 19 U/L Normal <32 [facility] Comment on above: Performed By: #### C BC, CP #### [facility] [address] [place], [place] [id number] Substation Operator Transforming: Loretta Davis MD Bilirubin [Mass/Vol] 0.2 mg/dL Low 0.3-1.2 [facility] Comment on above: Performed By: #### C BC, CP #### [facility] [address] [place], [place] [id number] Substation Operator Transforming: Loretta Davis MD BUN/CRE Ratio 31 High 9-20 [facility] Comment on above: Performed By: #### C VU, CP #### [facility] [address] [place], [place] [phone] Substation Operator Transforming: Loretta Davis MD Calcium [Mass/Vol] 9.6 mg/dL Normal 8.6-10.4 [facility] Comment on above: Performed By: #### C VU, CP #### [facility] [address] [place], [place] [id number] Substation Operator Transforming: Loretta Davis MD Chloride [Moles/Vol] 91 mmol/L Low 98-107 [facility] Comment on above: Performed By: #### C VU, CP #### [facility] [address] [place], [place] [id number] Substation Operator Transforming: Loretta Davis MD CO2 [Moles/Vol] 26 mmol/L Normal 20-31 [facility] Comment on above: Performed By: #### C VU, CP #### [facility] [address] [place], [place] [phone] Substation Operator Transforming: Loretta Davis MD Creatinine [Mass/Vol] 0.65 mg/dL Normal 0.50-0.90 [facility] Comment on above: Performed By: #### C VU, CP #### [facility] [address] [place], [place] [id number] Substation Operator Transforming: Loretta Davis MD GFR/1.73 sq M.predicted among non-blacks MDRD (S/P/Bld) [Vol rate/Area] mL/min/{1.73_m2} Normal >60 [facility] Comment on above: Result Comment: These results are not intended for use in patients <18 years of age. eGFR results are calculated without a race factor using the 2020 CKD-EPI equation. Careful clinical correlation is recommended, particularly when comparing to results calculated using previous equations. The CKD-EPI equation is less accurate in patients with extremes of muscle mass, extra-renal metabolism of creatine, excessive creatine ingestion, or following therapy that affects renal tubular secretion. Performed By: #### C BC, CP #### [facility] [address] [place] [address] Substation Operator Transforming: Loretta Davis MD Glucose [Mass/Vol] 125 mg/dL High 70-99 [facility] Comment on above: Performed By: #### C BC, CP #### [facility] [address] [place], [place] [id number] Substation Operator Transforming: Loretta Davis MD Potassium [Moles/Vol] 4.3 mmol/L Normal 3.7-5.3 [facility] Comment on above: Performed By: #### C BC, CP #### [facility] [address] [place], [place] [id number] Substation Operator Transforming: Loretta Davis MD Protein [Mass/Vol] 6.7 g/dL Normal 6.4-8.3 [facility] Comment on above: Performed By: #### C BC, CP #### [facility] [address] [place], [place] [id number] Substation Operator Transforming: Loretta Davis MD Sodium [Moles/Vol] 130 mmol/L Low 135-144 [facility] Comment on above: Performed By: #### C VU, CP #### [facility] [address] [place], [place] [id number] Substation Operator Transforming: Loretta Davis MD Urea nitrogen [Mass/Vol] 20 mg/dL Normal 8-23 [facility] Comment on above: Performed By: #### C VU, CP #### [facility] [address] [place] [address] Substation Operator Transforming: Loretta Davis MD Comprehensive Metabolic Pane [facility] 06-09-2022 Albumin [Mass/Vol] 4.1 g/dL 3.5 - 5.2 g/dL [facility] Albumin/Globulin [Mass ratio] 1.6 {ratio} 1.0 - 2.5 [facility] ALP [Catalytic activity/Vol] 68 U/L 35 - 104 U/L [facility] ALT [Catalytic activity/Vol] 27 U/L 5 - 33 U/L [facility] Anion gap [Moles/Vol] 13 mmol/L 9 - 17 mmol/L [facility] AST [Catalytic activity/Vol] 19 U/L NINF - 32 U/L [facility] Bilirubin [Mass/Vol] 0.2 mg/dL Low 0.3 - 1 .2 mg/dL [facility] Calcium [Mass/Vol] 9.6 mg/dL 8.6 - 10. 4 mg/dL [facility] Chloride [Moles/Vol] 91 mmol/L Low 98 - 10 7 mmol/L [facility] CO2 [Moles/Vol] 26 mmol/L 20 - 31 mmol/L [facility] Creatinine [Mass/Vol] 0.65 mg/dL 0.50 - 0.90 mg/dL [facility] GFR/1.73 sq M.predicted MDRD (S/P/Bld) [Vol rate/Area] - PINF [facility] Comment on above: These results are not intended for use in patients <18 years of age. eGFR results are calculated without a race factor using the 2020 CKD-EPI equation. Careful clinical correlation is recommended, particularly when comparing to results calculated using previous equations. The CKD-EPI equation is less accurate in patients with extremes of muscle mass, extra-renal metabolism of creatine, excessive creatine ingestion, or following therapy that affects renal tubular secretion. Glucose [Mass/Vol] 125 mg/dL High 70 - 99 mg/dL [facility] Interpretation and review of laboratory results Abnormal [facility] Potassium [Moles/Vol] 4.3 mmol/L 3.7 - 5.3 mmol/L [facility] Protein [Mass/Vol] 6.7 g/dL 6.4 - 8.3 g/dL [facility] Sodium [Moles/Vol] 130 mmol/L Low 135 - 144 mmol/L [facility] Urea nitrogen [Mass/Vol] 20 mg/dL 8 - 23 mg/dL [facility] Urea nitrogen/Creatinine (Bld) [Mass ratio] 31 High 9 - 20 [facility] Microscopic Urinalysison Bacteria, UA 2+ Abnormal None [facility] Epithelial Cells UA 2 TO 5 [facility] Interpretation and review of laboratory results Abnormal [facility] Mucus, UA 1+ Abnormal None [facility] RBC clumps Auto (Urine sed) [#/Area] 10 TO 20 [facility] WBC, UA 10 TO 20 [facility] Urinalysison 06-07-2022 Bilirubin Urine Negative NEGATIVE [facility] Color, UA Yellow Yellow [facility] Glucose Auto test strip (U) [Mass/Vol] Negative NEGATIVE [facility] Interpretation and review of laboratory results Abnormal [facility] Ketones (U) [Mass/Vol] Negative NEGATIVE [facility] Leukocyte esterase Auto test strip Ql (U) SMALL Abnormal NEGATIVE [facility] Nitrite Auto test strip Ql (U) Negative NEGATIVE [facility] Protein (U) [Mass/Vol] 6.0 mg/dL 5.0 - 9.0 [facility] Protein (U) [Mass/Vol] 2+ Abnormal NEGATIVE [facility] Specific Josephine, UA 1.025 High 1.010 - 1.020 [facility] Turbidity UA Clear Clear [facility] Urine Hgb 2+ Abnormal NEGATIVE [facility] Urobilinogen, Urine Normal Normal [facility] Urinalysis, Routineon 2022 Bilirubin, SemiQt,Ur Negative Normal [facility] Comment on above: Performed By: #### U MICAO, UA #### [facility] [address] [place] [address] Substation Operator Transforming: Loretta Davis MD Blood, Urine 2+ Abnormal NEG [facility] Comment on above: Performed By: #### U MICAO, UA #### [facility] [address] [place] [address] Substation Operator Transforming: Loretta Davis MD Clarity (U) Clear Normal CLEAR [facility] Comment on above: Performed By: #### U MICAO, UA #### [facility] [address] [place], [place] [id number] Substation Operator Transforming: Loretta Davis MD Color (U) Yellow Normal YEL [facility] Comment on above: Performed By: #### U MICAO, UA #### [facility] [address] [place], [place] [id number] Substation Operator Transforming: Loretta Davis MD Glucose Ql (U) Negative Normal NEG [facility] Comment on above: Performed By: #### U MICAO, UA #### [facility] [address] [place] [address] [place]. [place], [place] [phone] Substation Operator Transforming: Loretta Davis MD Ketones Ql (U) Negative Normal NEG [facility] Comment on above: Performed By: #### U MICAO, UA #### [facility] [address] [place] [address] [place]. [place], [place] [phone] Substation Operator Transforming: Loretta Davis MD Leukocyte esterase Test strip Ql (U) SMALL Abnormal NEG [facility] Comment on above: Performed By: #### U MICAO, UA #### [facility] [address] [place] [address] Dr. [place], [place] [phone] Substation Operator Transforming: Loretta Davis MD Nitrite,Ur Negative Normal NEG [facility] Comment on above: Performed By: #### U MICAO, UA #### [facility] [address] [place], [place] [phone] Substation Operator Transforming: Loretta Davis MD PH,Ur 6.0 Normal 5.0-9.0 [facility] Comment on above: Performed By: #### U MICAO, UA #### [facility] [address] [place], [place] [id number] Substation Operator Transforming: Loretta Davis MD Protein Ql (U) 2+ Abnormal NEG [facility] Comment on above: Performed By: #### U MICAO, UA #### [facility] [address] [place], [place] [id number] Substation Operator Transforming: Loretta Davis MD Spec. Josephine,Ur 1.025 High 1.010-1.02 0 [facility] Comment on above: Performed By: #### U MICAO, UA #### [facility] [address] [place], [place] [phone] Substation Operator Transforming: Loretta Davis MD Urobilinogen,Ur Normal Normal NORM [facility] Comment on above: Performed By: #### U MICAO, UA #### [facility] [address] [place], [place] [phone] Substation Operator Transforming: Loretta aDvis MD Urinalysis,Microon 3 Bacteria 2+ Abnormal NONE [facility] Comment on above: Performed By: #### U MICAO, UA #### [facility] [address] [place] [address] [place]. [place], [place] [phone] Substation Operator Transforming: Loretta Davis MD Epithelial cells LM Ql (Urine sed) 2 TO 5 Normal 0-25 [facility] Comment on above: Performed By: #### U MICAO, UA #### [facility] [address] [place] [address] [place]. [place], [place] [phone] Substation Operator Transforming: Loretta Davis MD Mucus Strands 1+ Abnormal [facility] Comment on above: Performed By: #### U MICAO, UA #### [facility] [address] [place], [place] [id number] Substation Operator Transforming: Loretta Davis MD Urine RBC's 10 TO 20 Normal 0-2 [facility] Comment on above: Performed By: #### U MICAO, UA #### [facility] [address] [place], [place] [phone] Substation Operator Transforming: Loretta Davis MD Urine WBC's 10 TO 20 Normal 0-5 [facility] Comment on above: Performed By: #### U MICAO, UA #### [facility] [address] [place] [address] Substation Operator Transforming: Loretta Davis MD COVID-19 Antigenon 3 COVID-19 Antigen Healthcare Worker?: N Reference Range: Negative Negative results, from patients with symptom onset beyond five days, should be treated as presumptive and confirmation with a molecular assay, if necessary, for patient management, may be performed. Negative results do not rule out COVID-19 and should not be used as the sole basis for treatment or patient management decisions, including infection control decisions. Negative results should be considered in the context of a patient's recent exposures, history and the presence of clinical signs and symptoms consistent with COVID-19. The Katelyn SARS Antigen YANELY does not differentiate between SARS-CoV and SARS-CoV-2. This test was developed and its performance characteristic determined by [employer] and validated at [facility]. This test has not been FDA cleared or approved. This test has been authorized by FDA under an Emergency Use Authorization (EUA). This test has been validated in accordance with the FDA's Guidance Document (Policy for Diagnostics Testing in Laboratories Certified to Perform High Complexity Testing under CLIA prior to Emergency Use Authorization for Coronavirus Disease-2019 during the Public Health Emergency) issued on July 06, 2019. This test is only authorized for the duration of time the declaration that circumstances exist justifying the authorization of the emergency use of in vitro diagnostic tests for detection of SARS-CoV-2 virus and/or diagnosis of COVID-19 infection under section 564(b)(1) of the Act, 21 U.S.C. 360bbb-3(b)(1), unless the authorization is terminated or revoked sooner. SARS-CoV+SARS-CoV-2 (COVID-19) Ag [Presence] in Respiratory specimen by Rapid immunoassay Negative for SARS Antigen by YANELY PERFORMED BY: [facility] [place] [address] PATHOLOGIST ASSISTANT AUDITOR LILLY LOTT M.D. [facility] Comment on above: Performed By: #### S OFIANEG, COVID-19 KATELYN #### [facility] [address] [place] [address] [place] Katelyn Ag Negativeon 06-04-19 Katelyn Ag Negative Negative Normal Negative [facility] Comment on above: Result Comment: This is a duplicate Katelyn SARS Antigen (YANELY) result to be used for statistical tracking purpose only. PERFORMED BY: [facility] [address] [place] [address] PATHOLOGIST ASSISTANT AUDITOR LILLY LOTT M.D. Performed By: #### S OFIANEG, COVID-19 KATELYN #### [facility] [address] [place] [id number] [facility] Albumin [Mass/volume] in Bod y fluidOrdered By: Tatianna Hilario on 06-02-2022 Albumin (Body fld) [Mass/Vol] 3.9 g/dL 3.2-5.5 [facility] Alkaline phosphatase [Enzyma tic activity/volume] in Serum or PlasmaOrdered By: Tatianna Hilario on 06-02-2022 ALP [Catalytic activity/Vol] 59 U/L 32-92 [facility] Amphetamine Screen Ql (U)Ord ered By: Tatianna Hilario on 06-02-2022 Amphetamines Ql (U) Negative Negative [facility] Aspartate aminotransferase [ Enzymatic activity/volume] in Serum or PlasmaOrdered By: Tatianna Hilario on 06-02-2022 AST [Catalytic activity/Vol] 25 U/L 10-42 [facility] Barbiturates [Presence] in U rineOrdered By: Tatianna Hilario on 06-02-2022 Barbiturates Ql (U) Negative Negative [facility] Basophils Auto (Bld) [#/Vol] Ordered By: Tatianna Hilario on 06-02-2022 Basophils (Bld) [#/Vol] 0.0 10*3/uL 0.0-0.2 [facility] Basophils/100 WBC Auto (Bld) Ordered By: Tatianna Hilario on 06-02-2022 Basophils/100 WBC (Bld) 0.6 % . [facility] Benzodiazepines [Presence] i n UrineOrdered By: Tatianna Hilario on 06-02-2022 Benzodiazepines Ql (U) Positive Negative [facility] Bilirubin Test strip Ql (U)O rdered By: Tatianna Hilario on 06-02-2022 Bilirubin Ql (U) Negative Negative [facility] Bilirubin.total [Mass/volume ] in Serum or PlasmaOrdered By: Tatianna Hilario on 06-02-2022 Bilirubin [Mass/Vol] 0.3 mg/dL 0.3-1.2 [facility] COVID-19 SOFIAOrdered By: Sachin Oro on 06-02-2022 SARS-CoV+SARS-CoV-2 (COVID-19) Ag IA.rapid Ql (Resp) Negative Negative [facility] Comment on above: This is a duplicate Katelyn SARS Antigen (YANELY) result to be used for statistical tracking purpose only. Calcium [Mass/volume] in Ser um or PlasmaOrdered By: Tatianna Hilario on 06-02-2022 Calcium [Mass/Vol] 9.6 mg/dL 8.2-10.2 [facility] Cannabinoids [Presence] in U rine by Screen methodOrdered By: Tatianna Hilario on 06-02-2022 Cannabinoids Screen Ql (U) Negative Negative [facility] Comment on above: These are unconfirme d results and should not be used for legal purposes. Drug Cut-Off Concentration: AMPH 1000 ng/mL CESAR 200 ng/mL DIONNE 200 ng/mL COCM 300 ng/mL OP 300 ng/mL PCP 25 ng/mL THC 20 ng/mL Carbon dioxide, total [Moles /volume] in Serum or PlasmaOrdered By: Tatianna Hilario on 06-02-2022 CO2 [Moles/Vol] 24.5 mmol/L 22.0-30.0 [facility] Chloride [Moles/volume] in S vasquez or PlasmaOrdered By: Tatianna Hilario on 06-02-2022 Chloride [Moles/Vol] 94 mmol/L 95-114 [facility] Color Auto (U)Ordered By: Shahid Hilario on 06-02-2022 Color (U) Yellow Yellow [facility] Complete Blood Count Auto Di ffon 06-02-2022 Basophils (Bld) [#/Vol] 0.0 10*3/uL Normal 0.0-0.2 [facility] Comment on above: Result Comment: PERF ORMED BY: [place] [address] PATHOLOGIST ASSISTANT AUDITOR LILLY LOTT M.D. Performed By: #### S OFIANEG, COVID-19 KATELYN #### [facility] [address] [place] [address] Basophils/100 WBC (Bld) 0.6 % Normal . [facility] Comment on above: Performed By: #### S OFIANEG, COVID-19 KATELNY #### [address] Eosinophils (Bld) [#/Vol] 0.1 10*3/uL Normal 0.0-0.45 [facility] Comment on above: Performed By: #### S OFIANEG, COVID-19 KATELYN #### [address] Eosinophils/100 WBC (Bld) 0.8 % Normal . [facility] Comment on above: Performed By: #### S OFIANEG, COVID-19 KATELYN #### [facility] [address] [place] [address] Erythrocyte distribution width (RBC) [Ratio] 13.4 % Normal 11.9-15.3 [facility] Comment on above: Performed By: #### S OFIANEG, COVID-19 KATELYN #### [facility] [address] [place] [address] Hematocrit (Bld) [Volume fraction] 39.4 % Normal 34.0-46.4 [facility] Comment on above: Performed By: #### S OFIANEG, COVID-19 KATELYN #### [facility] [address] [place] [address] Hemoglobin (Bld) [Mass/Vol] 12.8 g/dL Normal 11.8-15.4 [facility] Comment on above: Performed By: #### S OFIANEG, COVID-19 KATELYN #### [address] [place] [address] [place] Lymphocytes (Bld) [#/Vol] 1.8 10*3/uL Normal 1.00-4.8 [facility] Comment on above: Performed By: #### S DIONNE YADAVID-19 KATELYN #### [address] Lymphocytes/100 WBC (Bld) 23.6 % Normal . [facility] Comment on above: Performed By: #### S DIONNE YADAVID-19 KATELYN #### [address] MCH (RBC) [Entitic mass] 29.7 pg Normal 24.7-34.3 [facility] Comment on above: Performed By: #### S DIONNE YADAVID-19 KATELYN #### [address] MCV (RBC) [Entitic vol] 91.6 fL Normal 80-100 [facility] Comment on above: Performed By: #### S DIONNE YADAVID-19 KATELYN #### [address] Mean Corpuscular HGB Conc 32.4 g/dL Normal 32.0-35.0 [facility] Comment on above: Performed By: #### S DIONNE YADAVID-19 KATELYN #### [address] Monocytes (Bld) [#/Vol] 0.5 10*3/uL Normal 0.0-0.8 [facility] Comment on above: Performed By: #### S VICENTA COVID-19 KATELYN #### [place] [address] [place] Monocytes/100 WBC (Bld) 18.48 % Normal 0.00-20.00 [facility] Comment on above: Performed By: #### S VICENTA COVID-19 KATELYN #### [place] [address] [place] Monocytes/100 WBC (Bld) 6.0 % Normal . [facility] Comment on above: Performed By: #### S DIONNE YADAVID-19 KATELYN #### [facility] [address] [place] [address] Neutrophils (Bld) [#/Vol] 5.3 10*3/uL Normal 1.8-7.7 [facility] Comment on above: Performed By: #### S VICENTA COVID-19 KATELYN #### [address] Neutrophils/100 WBC (Bld) 69.0 % Normal . [facility] Comment on above: Performed By: #### S DIONNE YADAVID-19 KATELYN #### [facility] [address] [place] [address] NRBC% 0.1 /100{WBC} Normal 0-0.5 [facility] Comment on above: Performed By: #### S DIONNE YADAVID-19 KATELYN #### [facility] [address] [place] [address] Platelet mean volume (Bld) [Entitic vol] 6.5 fL Normal 6.3-10.7 [facility] Comment on above: Performed By: #### S VICENTA COVID- KATELYN #### [facility] [address] [place] [address] [place] Platelets (Bld) [#/Vol] 372 10*3/uL Normal 150-450 [facility] Comment on above: Performed By: #### S DIONNE YADAVID-19 KATELYN #### [facility] [address] [place] [address] [place] RBC (Bld) [#/Vol] 4.31 10*6/uL Normal 3.60-5.00 [facility] Comment on above: Performed By: #### S VICENTA COVID-19 KATELYN #### [facility] [address] [place] [address] WBC (Bld) [#/Vol] 7.6 10*3/uL Normal 3.8-11.6 [facility] Comment on above: Performed By: #### S OFSANDRA COVID-19 KATELYN #### [facility] [address] [place] [address] Comprehensive Metabolic Pane alcides 06-02-2022 Albumin [Mass/Vol] 3.9 g/dL Normal 3.2-5.5 [facility] Comment on above: Performed By: #### S OFSANDRA COVID-19 KATELYN #### [address] Albumin/Globulin [Mass ratio] 1.4 {ratio} Normal [facility] Comment on above: Performed By: #### S OFSANDRA COVID-19 KATELYN #### [address] ALP [Catalytic activity/Vol] 59 U/L Normal 32-92 [facility] Comment on above: Performed By: #### S OFSANDRA COVID-19 KATELYN #### [address] ALT [Catalytic activity/Vol] 37 U/L Normal 10-60 [facility] Comment on above: Performed By: #### S OFSANDRA COVID-19 KATELYN #### [address] Anion gap [Moles/Vol] 16.8 mmol/L High 6.0-15.0 [facility] Comment on above: Performed By: #### S OFSANDRA COVID-19 KATELYN #### [address] AST [Catalytic activity/Vol] 25 U/L Normal 10-42 [facility] Comment on above: Performed By: #### S VICENTA COVID-19 KATELYN #### [address] Bilirubin [Mass/Vol] 0.3 mg/dL Normal 0.3-1.2 [facility] Comment on above: Performed By: #### S OFSANDRA COVID-19 KATELYN #### [facility] [address] [place] [address] [place] Calcium [Mass/Vol] 9.6 mg/dL Normal 8.2-10.2 [facility] Comment on above: Performed By: #### S VICENTA COVID-19 KATELYN #### [facility] [address] [place] [address] [place] Chloride [Moles/Vol] 94 mmol/L Low 95-114 [facility] Comment on above: Performed By: #### S OFSANDRA COVID-19 KATELYN #### [facility] [address] [place] [address] [place] CO2 [Moles/Vol] 24.5 mmol/L Normal 22.0-30.0 [facility] Comment on above: Performed By: #### S VICENTA COVID-19 KATELYN #### [facility] [address] [place] [address] [place] Creatinine [Mass/Vol] 0.70 mg/dL Normal 0.44-1.03 [facility] Comment on above: Performed By: #### S VICENTA COVID-19 KATELYN #### [facility] [address] [place] [address] [place] Creatinine Clr Calc Pharmacy 53.85 [facility] Comment on above: Result Comment: PERF ORMED BY: [place] [address] PATHOLOGIST ASSISTANT AUDITOR LILLY LOTT M.D. Performed By: #### S VICENTA COVID-19 KATELYN #### [facility] [address] [place] [address] [place] Estimated GFR ( Meenu > 60 [facility] Comment on above: Result Comment: GFR estimated reference range: According to KDOQI guidelines, <60 ml/min/1.73m2 is sufficient to diagnose a patient with chronic kidney disease. Performed By: #### S VICENTA COVID-19 KATELYN #### [facility] [address] [place] [address] [place] Estimated GFR (Non- Am > 60 Normal [facility] Comment on above: Performed By: #### S VICENTA COVID-19 KATELYN #### [facility] [address] [place] [address] [place] Globulin (S) [Mass/Vol] 2.8 g/dL Normal [facility] Comment on above: Performed By: #### S VICENTA COVID-19 KATELYN #### [facility] [address] [place] [address] [place] Glucose [Mass/Vol] 138 mg/dL High 70-100 [facility] Comment on above: Result Comment: [facility] Glucose Reference Range is dependent on time and content of last meal. Glucose of more than 200 mg/dL in a nonstressed, ambulatory subject supports the diagnosis of Diabetes Mellitus. ADA recommended reference range Performed By: #### S VICENTA COVID-19 KATELYN #### [facility] [address] [place] [address] [place] Potassium [Moles/Vol] 4.3 mmol/L Normal 3.5-5.1 [facility] Comment on above: Performed By: #### S VICENTA COVID-19 KATELYN #### [facility] [address] [place] [address] [place] Protein [Mass/Vol] 6.7 g/dL Normal 6.1-7.9 [facility] Comment on above: Performed By: #### S VICENTA COVID-19 KATELYN #### [facility] [address] [place] [id number] [place] Sodium [Moles/Vol] 131 mmol/L Low 136-146 [facility] Comment on above: Performed By: #### S VICENTA COVID-19 KATELYN #### [facility] [address] [place] [id number] [place] Urea nitrogen [Mass/Vol] 14 mg/dL Normal 9-23 [facility] Comment on above: Performed By: #### S VICENTA COVID-19 KATELYN #### [facility] [address] [place] [id number] [place] Creatinine and Glomerular fi ltration rate.predicted panel (S/P/Bld)Ordered By: Tatianna Hilario on 06-02-2022 Creatinine [Mass/Vol] 0.70 mg/dL 0.44-1.03 [facility] Drug Screen,Urineon 06-02-19 Amphetamine Screen,Urine Negative Normal Negative [facility] Comment on above: Performed By: #### C K, CRP, CMP, CBC, ESR, TSH3 #### [facility] [address] [place] [address] [place] #### ALDOLASE #### [facility] , Barbiturate Screen,Urine Negative Normal Negative [facility] Comment on above: Performed By: #### C K, CRP, CMP, CBC, ESR, TSH3 #### [facility] [address] [place] [address] [place] #### ALDOLASE #### [facility] , Benzodiazepines Screen,Urine Positive High Negative [facility] Comment on above: Performed By: #### C K, CRP, CMP, CBC, ESR, TSH3 #### [address] #### ALDOLASE #### [facility] , Cannabinoid Screen,Urine Negative Normal Negative [facility] Comment on above: Result Comment: Thes e are unconfirmed results and should not be used for legal purposes. Drug Cut-Off Concentration: AMPH 1000 ng/mL CESAR 200 ng/mL DIONNE 200 ng/mL COCM 300 ng/mL OP 300 ng/mL PCP 25 ng/mL THC 20 ng/mL PERFORMED BY: [place] [address] PATHOLOGIST ASSISTANT AUDITOR LILLY LOTT M.D. Performed By: #### C K, CRP, CMP, CBC, ESR, TSH3 #### [facility] [address] [place] [address] [place] #### ALDOLASE #### [facility] , Cocaine Screen,Urine Negative Normal Negative [facility] Comment on above: Performed By: #### C K, CRP, CMP, CBC, ESR, TSH3 #### [facility] [address] [place] [address] [place] #### ALDOLASE #### [facility] , Opiate Screen,Urine Negative Normal Negative [facility] Comment on above: Performed By: #### C K, CRP, CMP, CBC, ESR, TSH3 #### [facility] [address] [place] [address] [place] #### ALDOLASE #### [facility] , Phencyclidine Screen,Urine Negative Normal Negative [facility] Comment on above: Performed By: #### C K, CRP, CMP, CBC, ESR, TSH3 #### [facility] [address] [place] [address] [place] #### ALDOLASE #### [facility] , Eosinophils Auto (Bld) [#/Vo l]Ordered By: Tatianna Hilario on 06-02-2022 Eosinophils (Bld) [#/Vol] 0.1 10*3/uL 0.0-0.45 [facility] Eosinophils/100 WBC Auto (Bl d)Ordered By: Tatianna Hilario on 06-02-2022 Eosinophils/100 WBC (Bld) 0.8 % . [facility] Erythrocyte distribution wid th Auto (RBC) [Ratio]Ordered By: Tatianna Hilario on 06-02-2022 Erythrocyte distribution width (RBC) [Ratio] 13.4 % 11.9-15.3 [facility] Estimated glomerular filtrat ion rate (GFR) non- AmericanOrdered By: Tatianna Hilario on 06-02-2022 GFR/1.73 sq M.predicted among non-blacks MDRD (S/P/Bld) [Vol rate/Area] > 60 mL/Min [facility] Ethanol [Mass/volume] in Ser um or PlasmaOrdered By: Tatianna Hilario on 06-02-2022 Ethanol [Mass/Vol] mg/dL [facility] Ethanol [Mass/Vol] TNP [facility] Comment on above: Test not performed Ethyl Alcohol Profileon 05-07 Ethanol [Mass/Vol] mg/dL Normal [facility] Comment on above: Performed By: #### S OFIANEG, COVID-19 KATELYN #### [facility] [address] Percent Ethanol Not performed Normal [facility] Comment on above: Result Comment: PERF ORMED BY: [facility] [address] [facility] [place] [address] PATHOLOGIST ASSISTANT AUDITOR LILLY LOTT M.D. Performed By: #### S OFIANEG, COVID-19 KATELYN #### [facility] [address] [place] [address] [place] Globulin Calc (S) [Mass/Vol] Ordered By: Tatianna Hilario on 06-02-2022 Globulin (S) [Mass/Vol] 2.8 g/dL [facility] Glucose [Mass/volume] in Ser um or PlasmaOrdered By: Tatianna Hilario on 06-02-2022 Glucose [Mass/Vol] 138 mg/dL 70-100 [facility] Comment on above: ADA recommended refe rence rangeRandom Glucose Reference Range is dependent on time and content of last meal. Glucose of more than 200 mg/dL in a nonstressed, ambulatory subject supports the diagnosis of Diabetes Mellitus. Hematocrit Auto (Bld) [Volum e fraction]Ordered By: Tatianna Hilario on 06-02-2022 Hematocrit (Bld) [Volume fraction] 39.4 % 34.0-46.4 [facility] Hemoglobin [Mass/volume] in BloodOrdered By: Tatianna Hilario on 06-02-2022 Hemoglobin (Bld) [Mass/Vol] 12.8 g/dL 11.8-15.4 [facility] Ketones Auto test strip (U) [Mass/Vol]Ordered By: Tatianna Hilario on 06-02-2022 Ketones (U) [Mass/Vol] Negative Negative [facility] Laboratory - Drug toxicology Ordered By: Tatianna Hilario on 06-02-2022 Opiates Ql (U) Negative Negative [facility] Leukocytes [#/volume] correc marlen for nucleated erythrocytes in Blood by Automated counOrdered By: Tatianna Hilario on 02-28-2023 WBC corrected for nucl RBC Auto (Bld) [#/Vol] 7.6 10*3/uL 3.8-11.6 [facility] Lymphocytes Auto (Bld) [#/Vo l]Ordered By: Tatianna Hilario on 06-02-2022 Lymphocytes (Bld) [#/Vol] 1.8 10*3/uL 1.00-4.8 [facility] Lymphocytes/100 WBC Auto (Bl d)Ordered By: Tatianna Hilario on 06-02-2022 Lymphocytes/100 WBC (Bld) 23.6 % . [facility] MCH Auto (RBC) [Entitic mass ]Ordered By: Tatianna Hilario on 06-02-2022 MCH (RBC) [Entitic mass] 29.7 pg 24.7-34.3 [facility] MCHC Auto (RBC) [Mass/Vol]Or dered By: Taitanna Hilario on 06-02-2022 MCHC (RBC) [Mass/Vol] 32.4 g/dL 32.0-35.0 [facility] MCV Auto (RBC) [Entitic vol] Ordered By: Tatianna Hilario on 06-02-2022 MCV (RBC) [Entitic vol] 91.6 fL 80-100 [facility] Monocyte distribution width [Entitic volume] in Blood by AutomatedOrdered By: Tatianna Hilario on 06-02-2022 Monocyte distribution width Auto (Bld) [Entitic vol] 18.48 % 0.00-20.00 [facility] Monocytes Auto (Bld) [#/Vol] Ordered By: Tatianna Hilario on 06-02-2022 Monocytes (Bld) [#/Vol] 0.5 10*3/uL 0.0-0.8 [facility] Monocytes/100 WBC Auto (Bld) Ordered By: Tatianna Hilario on 06-02-2022 Monocytes/100 WBC (Bld) 6.0 % . [facility] Neutrophils Auto (Bld) [#/Vo l]Ordered By: Tatianna Hilario on 06-02-2022 Neutrophils (Bld) [#/Vol] 5.3 10*3/uL 1.8-7.7 [facility] Neutrophils/100 WBC Auto (Bl d)Ordered By: Tatianna Hilario on 06-02-2022 Neutrophils/100 WBC (Bld) 69.0 % . [facility] Nitrite Test strip Ql (U)Ord ered By: Tatianna Hilario on 06-02-2022 Nitrite Ql (U) Negative Negative [facility] No Panel InformationOrdered By: Anna Oro on 06-02-2022 SARS Antigen (LFIA) [facility] SARS Antigen (LFIA) [facility] No Panel InformationOrdered By: Tatianna Hilario on 06-02-2022 Estimated GFR () > 60 mL/Min [facility] Comment on above: GFR estimated refere nce range: According to KDOQI guidelines, <60 ml/min/1.73m2 is sufficient to diagnose a patient with chronic kidney disease. Pharmacy Creatinine Clearance (Chem 53.85 [facility] Nucleated erythrocytes [Pres ence] in Blood by Automated countOrdered By: Tatianna Hilario on 06-02-2022 Nucleated RBC Auto Ql (Bld) 0.1 /100{WBC} 0-0.5 [facility] Phencyclidine Screen Ql (U)O rdered By: Tatianna Hilario on 06-02-2022 Phencyclidine Ql (U) Negative Negative [facility] Platelet mean volume Auto (B ld) [Entitic vol]Ordered By: Tatianna Hilario on 06-02-2022 Platelet mean volume (Bld) [Entitic vol] 6.5 fL 6.3-10.7 [facility] Platelets Auto (Bld) [#/Vol] Ordered By: Tatianna Hilario on 06-02-2022 Platelets (Bld) [#/Vol] 372 10*3/uL 150-450 [facility] Potassium [Moles/volume] in Serum or PlasmaOrdered By: Tatianna Hilario on 06-02-2022 Potassium [Moles/Vol] 4.3 mmol/L 3.5-5.1 [facility] Protein Auto test strip (U) [Mass/Vol]Ordered By: Tatianna Hilario on 06-02-2022 Protein (U) [Mass/Vol] Negative Negative [facility] Protein [Mass/volume] in Ser um or PlasmaOrdered By: Tatianna Hilario on 06-02-2022 Protein [Mass/Vol] 6.7 g/dL 6.1-7.9 [facility] RBC Auto (Bld) [#/Vol]Ordere d By: Tatianna Hilario on 06-02-2022 RBC (Bld) [#/Vol] 4.31 10*6/uL 3.60-5.00 [facility] Serum or plasma alanine gomez otransferase measurement without P-5'-P (enzymatic activiOrdered By: Tatianna Hilario on 06-02-2022 ALT No additional P-5'-P [Catalytic activity/Vol] 37 U/L 10-60 [facility] Serum or plasma albumin/glob ulin mass ratioOrdered By: Tatianna Hilario on 06-02-2022 Albumin/Globulin [Mass ratio] 1.4 {ratio} [facility] Serum or plasma anion gap de terminationOrdered By: Tatianna Hilario on 06-02-2022 Anion gap [Moles/Vol] 16.8 mmol/L 6.0-15.0 [facility] Sodium [Moles/volume] in Ser um or PlasmaOrdered By: Tatianna Hilario on 06-02-2022 Sodium [Moles/Vol] 131 mmol/L 136-146 [facility] Specific gravity Auto test s trip (U) [Rel density]Ordered By: Tatianna Hilario on 06-02-2022 Specific gravity (U) [Rel density] 1.005 1.001-1.03 0 [facility] Urea nitrogen [Mass/volume] in Serum or PlasmaOrdered By: Tatianna Hilario on 06-02-2022 Urea nitrogen [Mass/Vol] 14 mg/dL 9- [facility] Urinalysison 06-02-2022 Appearance (U) Clear Normal Clear [facility] Comment on above: Order Comment: Name Collection Type:: Clean-Voided Midstream Performed By: #### C K, CRP, CMP, CBC, ESR, TSH3 #### [facility] [address] #### ALDOLASE #### [facility] , Bilirubin,Urine Negative Normal Negative [facility] Comment on above: Order Comment: Name Collection Type:: Clean-Voided Midstream Performed By: #### C K, CRP, CMP, CBC, ESR, TSH3 #### [facility] [address] [place] [address] #### ALDOLASE #### [facility] , Color (U) Yellow Normal Yellow [facility] Comment on above: Order Comment: Name Collection Type:: Clean-Voided Midstream Performed By: #### C K, CRP, CMP, CBC, ESR, TSH3 #### [facility] [address] [place] [address] #### ALDOLASE #### [facility] , Glucose Ql (U) Normal Normal Normal [facility] Comment on above: Order Comment: Name Collection Type:: Clean-Voided Midstream Performed By: #### C K, CRP, CMP, CBC, ESR, TSH3 #### [facility] [address] [place] [address] #### ALDOLASE #### [facility] , Ketones Ql (U) Negative Normal Negative [facility] Comment on above: Order Comment: Name Collection Type:: Clean-Voided Midstream Performed By: #### C K, CRP, CMP, CBC, ESR, TSH3 #### [facility] [address] [place] [address] #### ALDOLASE #### [facility] , Leukocyte esterase Test strip Ql (U) Negative Normal Negative [facility] Comment on above: Order Comment: Name Collection Type:: Clean-Voided Midstream Performed By: #### C K, CRP, CMP, CBC, ESR, TSH3 #### [facility] [address] [place] [address] [place] #### ALDOLASE #### [facility] , Nitrite,Urine Negative Normal Negative [facility] Comment on above: Order Comment: Name Collection Type:: Clean-Voided Midstream Performed By: #### C K, CRP, CMP, CBC, ESR, TSH3 #### [facility] [address] [place] [address] #### ALDOLASE #### [facility] , Occult Blood,Urine Negative Normal Negative [facility] Comment on above: Order Comment: Name Collection Type:: Clean-Voided Midstream Result Comment: PERF ORMED BY: [place] [address] PATHOLOGIST ASSISTANT AUDITOR LILLY LOTT M.D. Performed By: #### C K, CRP, CMP, CBC, ESR, TSH3 #### [address] #### ALDOLASE #### [facility] , pH (U) 6.5 [pH] Normal 5.0-9.0 [facility] Comment on above: Order Comment: Name Collection Type:: Clean-Voided Midstream Performed By: #### C K, CRP, CMP, CBC, ESR, TSH3 #### [address] #### ALDOLASE #### [facility] , Protein,Urine Negative Normal Negative [facility] Comment on above: Order Comment: Name Collection Type:: Clean-Voided Midstream Performed By: #### C K, CRP, CMP, CBC, ESR, TSH3 #### [facility] [address] [place] [address] #### ALDOLASE #### [facility] , Specificy Josephine,Urine 1.005 Normal 1.001-1.03 0 [facility] Comment on above: Order Comment: Name Collection Type:: Clean-Voided Midstream Performed By: #### C K, CRP, CMP, CBC, ESR, TSH3 #### [address] #### ALDOLASE #### [facility] , Urobilinogen,Urine Normal Normal Normal [facility] Comment on above: Order Comment: Name Collection Type:: Clean-Voided Midstream Performed By: #### C K, CRP, CMP, CBC, ESR, TSH3 #### [facility] [address] [place] [address] [place] #### ALDOLASE #### [facility] , Urine clarity by refractomet ry automatedOrdered By: Tatianna Hilario on 06-02-2022 Clarity Refractometry automated (U) Clear Clear [facility] Urine cocaine detectionOrder ed By: Tatianna Hilario on 06-02-2022 Cocaine Ql (U) Negative Negative [facility] Urine glucose measurement by automated test strip (mass/volume)Ordered By: Tatianna Hilario on 06-02-2022 Glucose Auto test strip (U) [Mass/Vol] Normal mg/dL Normal [facility] Urine hemoglobin detection b y automated test stripOrdered By: Tatianna Hilario on 06-02-2022 Hemoglobin Auto test strip Ql (U) Negative Negative [facility] Urine leukocyte esterase det ection by automated test stripOrdered By: Tatianna Hilario on 06-02-2022 Leukocyte esterase Auto test strip Ql (U) Negative Negative [facility] Urobilinogen Auto test strip (U) [Mass/Vol]Ordered By: Tatianna Hilario on 06-02-2022 Urobilinogen (U) [Mass/Vol] Normal mg/dL Normal [facility] WBC Auto (Bld) [#/Vol]Ordere d By: Tatianna Hilario on 06-02-2022 WBC (Bld) [#/Vol] 7.6 10*3/uL 3.8-11.6 [facility] pH Auto test strip (U)Ordere d By: Tatianna Hilario on 06-02-2022 pH (U) 6.5 [pH] 5.0-9.0 [facility] CULTURE URINEon 05-20-2022 CULTURE URINE Culture Observations : LIGHT GROWTH OF MIXED GENITAL JAVON. NO POTENTIAL PATHOGENS SEEN. Normal [facility] Comment on above: Performed By: #### L IPID, BMP, NA #### [facility] [address] [address] [address] Dilip Cartagena CULTURE URINEon 05-08-2022 CULTURE URINE Isolate 1 Citrobacter youngae >100,000 cfu/ml of Isolate 2 Enterococcus faecalis 100,000 cfu/mL of ORGANISM 1 Citrobacter youngae ANTIBIOTIC M.I.C RX STATUS Piperacillin/Tazobactam <=4 S F Cefazolin >=64 R F Ceftazidime <=1 S F Ceftriaxone <=1 S F Ertapenem <=0.5 S F Imipenem <=0.25 S F Amikacin <=2 S F Gentamicin <=1 S F Tobramycin <=1 S F Ciprofloxacin <=0.25 S F Levofloxacin <=0.12 S F Nitrofurantoin <=16 S F Trimethoprim/Sulfamethoxazo le <=20 S F ORGANISM 2 Enterococcus faecalis ANTIBIOTIC M.I.C RX STATUS Beta-Lactamase Neg NEG F Benzylpenicillin 2 S F Ampicillin <=2 S F Gentamicin High Level (synergy) SYN-S S F Streptomycin High Level (synergy) SYN-S S F Ciprofloxacin <=0.5 S F Levofloxacin 0.5 S F Quinupristin/Dalfopristin 4 R F Linezolid 2 S F Vancomycin 1 S F Tetracycline <=1 S F Nitrofurantoin <=16 S F Normal [facility] Comment on above: Performed By: #### L IPID, BMP, NA #### [facility] [address] [address] [address] Dilip Cartagena LUIS ENRIQUE Antinuclear Antibodieson 05-05-2022 Antinuclear Abs, IFA Positive Critically abnormal . [facility] Comment on above: Result Comment: Nega tive <1:80 Borderline 1:80 Positive >1:80 Performed By: #### S VICENTA, COVID-19 KATELYN #### [facility] [address] Note 1 Normal . [facility] Comment on above: Result Comment: For more information about Hep-2 cell patterns use ANApatterns.org, the official website for the International Consensus on Antinuclear Antibody (LUIS ENRIQUE) Patterns (ICAP). A positive LUIS ENRIQUE result may occur in healthy individuals (low titer) or be associated with a variety of diseases. See interpretation chart which is not all inclusive: Pattern Antigen Detected Suggested Disease Association Homogeneous DNA(ds,ss), SLE - High titers Nucleosomes, Histones Drug-induced SLE Speckled Sm, [employer]AD[employer] L[employer] ROOM ATTENDANT, SCL-70, SLE,MCTD,PSS (diffuse form), SS-A/SS-B Sjogrens Nucleolar SCL-70, PM-1/SCL High titers Scleroderma, PM/DM Centromere Centromere PSS (limited form) w/Crest syndrome variable Nuclear Dot [id number] Primary Biliary Cirrhosis Nuclear GP210, Primary Biliary Cirrhosis Membrane ban A,B,C Performed at: [address] [id number] Substation Operator Transforming: Reggie Lazcano PhD, Phone: [phone] PERFORMED BY: [place] [address] PATHOLOGIST ASSISTANT AUDITOR LILLY LOTT M.D. Performed By: #### S VICENTA COVID-19 KATELYN #### [address] Speckled Pattern 1:80 Normal . [facility] Comment on above: Result Comment: ICAP nomenclature: AC-2,4,5,29 Performed By: #### S VICENTA COVID-19 KATELYN #### [address] Aldolaseon 05-05-2022 Aldolase 7.8 U/L Normal 3.3-10.3 [facility] Comment on above: Result Comment: Perf ormed at: [address] [id number] Substation Operator Transforming: Reggie Lazcano PhD, Phone: [phone] PERFORMED BY: [place] [address] PATHOLOGIST ASSISTANT AUDITOR LILLY LOTT M.D. Performed By: #### C K, CRP, CMP, CBC, ESR, TSH3 #### [facility] [address] [place] [address] #### ALDOLASE #### [facility] , Angiotensin Converting Enzym adelia 05-05-2022 Angiotensin converting enzyme [Catalytic activity/Vol] U/L Normal 14-82 [facility] Comment on above: Result Comment: Perf ormed at: [address] [id number] Substation Operator Transforming: Reggie Lazcano PhD, Phone: [phone] Performed By: #### S OFHUSSAINEG, COVID-19 KATELYN #### [facility] [address] [place] [address] Basophils Auto (Bld) [#/Vol] Ordered By: Johann Dolan on 05-05-2022 Basophils (Bld) [#/Vol] 0.1 10*3/uL 0.0-0.2 [facility] Basophils/100 WBC Auto (Bld) Ordered By: Johann Dolan on 05-05-2022 Basophils/100 WBC (Bld) 0.7 % . [facility] Body fluid albumin measureme nt (mass/volume)Ordered By: Johann Dolan on 05-05-2022 Albumin (Body fld) [Mass/Vol] 4.6 g/dL 3.2-5.5 [facility] C reactive protein [Mass/vol ume] in Serum or PlasmaOrdered By: Johann Dolan on 05-05-2022 CRP [Mass/Vol] mg/L 0-10 [facility] Comment on above: Performed at: [facility] [place] [id number] Director: Reggie Lazcano PhD, Phone: [phone] C-Reactive Proteinon 023 C-Reactive Protein 0.6 mg/dL Normal 0.0-1.0 [facility] Comment on above: Performed By: #### C K, CRP, CMP, CBC, ESR, TSH3 #### [facility] [address] [place] [address] #### ALDOLASE #### [facility] , CT biopsyOrdered By: Johann Dolan on 05-05-2022 CT biopsy 7.8 U/L 3.3-10.3 [facility] Comment on above: Performed at: [facility] [place] [id number] Director: Reggie Lazcano PhD, Phone: [phone] Complete Blood Count Auto Di ffon 05-05-2022 Basophils (Bld) [#/Vol] 0.1 10*3/uL Normal 0.0-0.2 [facility] Comment on above: Performed By: #### C K, CRP, CMP, CBC, ESR, TSH3 #### [place] [address] [place] #### ALDOLASE #### [facility] , Basophils/100 WBC (Bld) 0.7 % Normal . [facility] Comment on above: Performed By: #### C K, CRP, CMP, CBC, ESR, TSH3 #### [place] [address] [place] #### ALDOLASE #### [facility] , Eosinophils (Bld) [#/Vol] 0.1 10*3/uL Normal 0.0-0.45 [facility] Comment on above: Performed By: #### C K, CRP, CMP, CBC, ESR, TSH3 #### [place] [address] [place] #### ALDOLASE #### [facility] , Eosinophils/100 WBC (Bld) 0.7 % Normal . [facility] Comment on above: Performed By: #### C K, CRP, CMP, CBC, ESR, TSH3 #### [place] [address] [place] #### ALDOLASE #### [facility] , Erythrocyte distribution width (RBC) [Ratio] 13.9 % Normal 11.9-15.3 [facility] Comment on above: Performed By: #### C K, CRP, CMP, CBC, ESR, TSH3 #### [place] [address] [place] #### ALDOLASE #### [facility] , Hematocrit (Bld) [Volume fraction] 40.3 % Normal 34.0-46.4 [facility] Comment on above: Performed By: #### C K, CRP, CMP, CBC, ESR, TSH3 #### [place] [address] [place] #### ALDOLASE #### [facility] , Hemoglobin (Bld) [Mass/Vol] 13.1 g/dL Normal 11.8-15.4 [facility] Comment on above: Performed By: #### C K, CRP, CMP, CBC, ESR, TSH3 #### [facility] [address] [place] [address] [place] #### ALDOLASE #### [facility] , Lymphocytes (Bld) [#/Vol] 1.7 10*3/uL Normal 1.00-4.8 [facility] Comment on above: Performed By: #### C K, CRP, CMP, CBC, ESR, TSH3 #### [address] #### ALDOLASE #### [facility] , Lymphocytes/100 WBC (Bld) 22.1 % Normal . [facility] Comment on above: Performed By: #### C K, CRP, CMP, CBC, ESR, TSH3 #### [facility] [address] [place] [address] [place] #### ALDOLASE #### [facility] , MCH (RBC) [Entitic mass] 30.2 pg Normal 24.7-34.3 [facility] Comment on above: Performed By: #### C K, CRP, CMP, CBC, ESR, TSH3 #### [facility] [address] [place] [address] [place] #### ALDOLASE #### [facility] , MCV (RBC) [Entitic vol] 92.6 fL Normal 80-100 [facility] Comment on above: Performed By: #### C K, CRP, CMP, CBC, ESR, TSH3 #### [place] [address] [place] #### ALDOLASE #### [facility] , Mean Corpuscular HGB Conc 32.6 g/dL Normal 32.0-35.0 [facility] Comment on above: Performed By: #### C K, CRP, CMP, CBC, ESR, TSH3 #### [facility] [address] [place] [address] [place] #### ALDOLASE #### [facility] , Monocytes (Bld) [#/Vol] 0.3 10*3/uL Normal 0.0-0.8 [facility] Comment on above: Performed By: #### C K, CRP, CMP, CBC, ESR, TSH3 #### [place] [address] [place] #### ALDOLASE #### [facility] , Monocytes/100 WBC (Bld) 4.5 % Normal . [facility] Comment on above: Performed By: #### C K, CRP, CMP, CBC, ESR, TSH3 #### [place] [address] [place] #### ALDOLASE #### [facility] , Neutrophils (Bld) [#/Vol] 5.4 10*3/uL Normal 1.8-7.7 [facility] Comment on above: Performed By: #### C K, CRP, CMP, CBC, ESR, TSH3 #### [address] #### ALDOLASE #### [facility] , Neutrophils/100 WBC (Bld) 72.0 % Normal . [facility] Comment on above: Performed By: #### C K, CRP, CMP, CBC, ESR, TSH3 #### [place] [address] [place] #### ALDOLASE #### [facility] , NRBC% 0.1 /100{WBC} Normal 0-0.5 [facility] Comment on above: Performed By: #### C K, CRP, CMP, CBC, ESR, TSH3 #### [place] [address] [place] #### ALDOLASE #### [facility] , Platelet mean volume (Bld) [Entitic vol] 6.7 fL Normal 6.3-10.7 [facility] Comment on above: Performed By: #### C K, CRP, CMP, CBC, ESR, TSH3 #### [facility] [address] [place] [address] [place] #### ALDOLASE #### [facility] , Platelets (Bld) [#/Vol] 379 10*3/uL Normal 150-450 [facility] Comment on above: Performed By: #### C K, CRP, CMP, CBC, ESR, TSH3 #### [facility] [address] [place] [address] [place] #### ALDOLASE #### [facility] , RBC (Bld) [#/Vol] 4.35 10*6/uL Normal 3.60-5.00 [facility] Comment on above: Performed By: #### C K, CRP, CMP, CBC, ESR, TSH3 #### [place] [address] [place] #### ALDOLASE #### [facility] , WBC (Bld) [#/Vol] 7.5 10*3/uL Normal 3.8-11.6 [facility] Comment on above: Performed By: #### C K, CRP, CMP, CBC, ESR, TSH3 #### [facility] [address] [place] [address] [place] #### ALDOLASE #### [facility] , Comprehensive Metabolic Pane alcides 05-05-2022 Albumin [Mass/Vol] 4.6 g/dL Normal 3.2-5.5 [facility] Comment on above: Performed By: #### C K, CRP, CMP, CBC, ESR, TSH3 #### [place] [address] [place] #### ALDOLASE #### [facility] , Albumin/Globulin [Mass ratio] 1.9 {ratio} Normal [facility] Comment on above: Performed By: #### C K, CRP, CMP, CBC, ESR, TSH3 #### [facility] [address] [place] [address] [place] #### ALDOLASE #### [facility] , ALP [Catalytic activity/Vol] 61 U/L Normal 32-92 [facility] Comment on above: Performed By: #### C K, CRP, CMP, CBC, ESR, TSH3 #### [facility] [address] [place] [address] #### ALDOLASE #### [facility] , ALT [Catalytic activity/Vol] 61 U/L High 10-60 [facility] Comment on above: Performed By: #### C K, CRP, CMP, CBC, ESR, TSH3 #### [facility] [address] [place] [address] [place] #### ALDOLASE #### [facility] , Anion gap [Moles/Vol] 17.3 mmol/L High 6.0-15.0 [facility] Comment on above: Performed By: #### C K, CRP, CMP, CBC, ESR, TSH3 #### [facility] [address] [place] [address] #### ALDOLASE #### [facility] , AST [Catalytic activity/Vol] 39 U/L Normal 10-42 [facility] Comment on above: Performed By: #### C K, CRP, CMP, CBC, ESR, TSH3 #### [facility] [address] [place] [address] [place] #### ALDOLASE #### [facility] , Bilirubin [Mass/Vol] 0.6 mg/dL Normal 0.3-1.2 [facility] Comment on above: Performed By: #### C K, CRP, CMP, CBC, ESR, TSH3 #### [facility] [address] [place] [address] [place] #### ALDOLASE #### [facility] , Calcium [Mass/Vol] 10.3 mg/dL High 8.2-10.2 [facility] Comment on above: Performed By: #### C K, CRP, CMP, CBC, ESR, TSH3 #### [facility] [address] [place] [address] [place] #### ALDOLASE #### [facility] , Chloride [Moles/Vol] 94 mmol/L Low 95-114 [facility] Comment on above: Performed By: #### C K, CRP, CMP, CBC, ESR, TSH3 #### [facility] [address] [place] [address] [place] #### ALDOLASE #### [facility] , CO2 [Moles/Vol] 25.4 mmol/L Normal 22.0-30.0 [facility] Comment on above: Performed By: #### C K, CRP, CMP, CBC, ESR, TSH3 #### [facility] [address] [place] [address] [place] #### ALDOLASE #### [facility] , Creatinine [Mass/Vol] 0.66 mg/dL Normal 0.44-1.03 [facility] Comment on above: Performed By: #### C K, CRP, CMP, CBC, ESR, TSH3 #### [facility] [address] [place] [address] [place] #### ALDOLASE #### [facility] , Estimated GFR ( Meenu > 60 Normal [facility] Comment on above: Result Comment: GFR estimated reference range: According to KDOQI guidelines, <60 ml/min/1.73m2 is sufficient to diagnose a patient with chronic kidney disease. Performed By: #### C K, CRP, CMP, CBC, ESR, TSH3 #### [facility] [address] [place] [address] [place] #### ALDOLASE #### [facility] , Estimated GFR (Non- Am > 60 Normal [facility] Comment on above: Performed By: #### C K, CRP, CMP, CBC, ESR, TSH3 #### [facility] [address] [place] [address] [place] #### ALDOLASE #### [facility] , Globulin (S) [Mass/Vol] 2.4 g/dL Normal [facility] Comment on above: Performed By: #### C K, CRP, CMP, CBC, ESR, TSH3 #### [place] [address] [place] #### ALDOLASE #### [facility] , Glucose [Mass/Vol] 119 mg/dL High 70-100 [facility] Comment on above: Result Comment: [facility] Glucose Reference Range is dependent on time and content of last meal. Glucose of more than 200 mg/dL in a nonstressed, ambulatory subject supports the diagnosis of Diabetes Mellitus. ADA recommended reference range Performed By: #### C K, CRP, CMP, CBC, ESR, TSH3 #### [place] [address] [place] #### ALDOLASE #### [facility] , Potassium [Moles/Vol] 4.7 mmol/L Normal 3.5-5.1 [facility] Comment on above: Performed By: #### C K, CRP, CMP, CBC, ESR, TSH3 #### [facility] [address] [place] [address] [place] #### ALDOLASE #### [facility] , Protein [Mass/Vol] 7.0 g/dL Normal 6.1-7.9 [facility] Comment on above: Performed By: #### C K, CRP, CMP, CBC, ESR, TSH3 #### [place] [address] [place] #### ALDOLASE #### [facility] , Sodium [Moles/Vol] 132 mmol/L Low 136-146 [facility] Comment on above: Performed By: #### C K, CRP, CMP, CBC, ESR, TSH3 #### [facility] [address] [place] [address] [place] #### ALDOLASE #### [facility] , Urea nitrogen [Mass/Vol] 12 mg/dL Normal 9-23 [facility] Comment on above: Performed By: #### C K, CRP, CMP, CBC, ESR, TSH3 #### [facility] [address] [place] [address] [place] #### ALDOLASE #### [facility] , Creatine Kinaseon 05-05-2022 CK [Catalytic activity/Vol] 1859 U/L High [facility] Comment on above: Result Comment: PERF ORMED BY: [place] [address] PATHOLOGIST ASSISTANT AUDITOR LILLY LOTT M.D. Performed By: #### C K, CRP, CMP, CBC, ESR, TSH3 #### [facility] [address] [place] [address] [place] #### ALDOLASE #### [facility] , Creatine kinase [Enzymatic a ctivity/volume] in Serum or PlasmaOrdered By: Johann Dolan on 05-05-2022 CK [Catalytic activity/Vol] 1859 U/L [facility] Creatinine and Glomerular fi ltration rate.predicted panel (S/P/Bld)Ordered By: Johann Dolan on 05-05-2022 Creatinine [Mass/Vol] 0.66 mg/dL 0.44-1.03 [facility] Eosinophils Auto (Bld) [#/Vo l]Ordered By: Johann Dolan on 05-05-2022 Eosinophils (Bld) [#/Vol] 0.1 10*3/uL 0.0-0.45 [facility] Eosinophils/100 WBC Auto (Bl d)Ordered By: Johann Dolan on 05-05-2022 Eosinophils/100 WBC (Bld) 0.7 % . [facility] Erythrocyte Sedimentation Ra yvonne 05-05-2022 ESR (Bld) [Velocity] 15 mm/h Normal 0-29 [facility] Comment on above: Result Comment: PERF ORMED BY: [place] [address] PATHOLOGIST ASSISTANT AUDITOR LILLY LOTT M.D. Performed By: #### C K, CRP, CMP, CBC, ESR, TSH3 #### [address] #### ALDOLASE #### [facility] , Erythrocyte distribution wid th Auto (RBC) [Ratio]Ordered By: Johann Dolan on 05-05-2022 Erythrocyte distribution width (RBC) [Ratio] 13.9 % 11.9-15.3 [facility] Erythrocyte sedimentation ra te by Photometric methodOrdered By: Johann Dolan on 05-05-2022 ESR Photometric method (Bld) [Velocity] 15 mm/hr 0-29 [facility] Estimated glomerular filtrat ion rate (GFR) non- AmericanOrdered By: Johann Dolan on 05-05-2022 GFR/1.73 sq M.predicted among non-blacks MDRD (S/P/Bld) [Vol rate/Area] > 60 mL/Min [facility] Globulin Calc (S) [Mass/Vol] Ordered By: Johann Dolan on 05-05-2022 Globulin (S) [Mass/Vol] 2.4 g/dL [facility] Hematocrit Auto (Bld) [Volum e fraction]Ordered By: Johann Dolan on 05-05-2022 Hematocrit (Bld) [Volume fraction] 40.3 % 34.0-46.4 [facility] Hemoglobin [Mass/volume] in BloodOrdered By: Johann Dolan on 05-05-2022 Hemoglobin (Bld) [Mass/Vol] 13.1 g/dL 11.8-15.4 [facility] LC CRPon 05-05-2022 LC CRP, Quant <1 Normal 0-10 [facility] Comment on above: Result Comment: Perf ormed at: CB - [facility] [address] [id number] Substation Operator Transforming: Reggie Lazcano PhD, Phone: [phone] PERFORMED BY: [facility] [address] [place] [address] PATHOLOGIST ASSISTANT AUDITOR LILLY LOTT M.D. Performed By: #### S DIONNE YADAVID-19 KATELYN #### [facility] [address] Leukocytes [#/volume] correc marlen for nucleated erythrocytes in Blood by Automated counOrdered By: Johann Dolan on 05-05-2022 WBC corrected for nucl RBC Auto (Bld) [#/Vol] 7.5 10*3/uL 3.8-11.6 [facility] Lymphocytes Auto (Bld) [#/Vo l]Ordered By: Johann Dolan on 05-05-2022 Lymphocytes (Bld) [#/Vol] 1.7 10*3/uL 1.00-4.8 [facility] Lymphocytes/100 WBC Auto (Bl d)Ordered By: Johann Dolna on 05-05-2022 Lymphocytes/100 WBC (Bld) 22.1 % . [facility] MCH Auto (RBC) [Entitic mass ]Ordered By: Johann Dolan on 05-05-2022 MCH (RBC) [Entitic mass] 30.2 pg 24.7-34.3 [facility] MCHC Auto (RBC) [Mass/Vol]Or dered By: Johann Dolan on 05-05-2022 MCHC (RBC) [Mass/Vol] 32.6 g/dL 32.0-35.0 [facility] MCV Auto (RBC) [Entitic vol] Ordered By: Johann Dolan on 05-05-2022 MCV (RBC) [Entitic vol] 92.6 fL 80-100 [facility] Monocytes Auto (Bld) [#/Vol] Ordered By: Johann Dolan on 05-05-2022 Monocytes (Bld) [#/Vol] 0.3 10*3/uL 0.0-0.8 [facility] Monocytes/100 WBC Auto (Bld) Ordered By: Johann Dolan on 05-05-2022 Monocytes/100 WBC (Bld) 4.5 % . [facility] Myositis Panelon 05-05-2022 Myositis Panel Normal [facility] Comment on above: Result Comment: See report. Scanned copy available in EMR. PERFORMED BY: [facility] [address] [facility] [place] [address] PATHOLOGIST ASSISTANT AUDITOR LILLY LOTT M.D. Performed By: #### S DIONNE YADAVID-19 KATELYN #### [facility] [address] Neutrophils Auto (Bld) [#/Vo l]Ordered By: Johann Dolan on 05-05-2022 Neutrophils (Bld) [#/Vol] 5.4 10*3/uL 1.8-7.7 [facility] Neutrophils/100 WBC Auto (Bl d)Ordered By: Johann Dolan on 05-05-2022 Neutrophils/100 WBC (Bld) 72.0 % . [facility] No Panel InformationOrdered By: Johann Dolan on 05-05-2022 Anti-Nuclear Antibody Comment 2 See comment . [facility] Comment on above: For more information about Hep-2 cell patterns useANApatterns.org, the official website for the InternationalConsensus on Antinuclear Antibody (LUIS ENRIQUE) Patterns (ICAP). ----A positive LUIS ENRIQUE result may occur in healthy individuals (lowtiter) or be associated with a variety of diseases. Seeinterpretation chart which is not all inclusive:Pattern Antigen Detected Suggested Disease Association Homogeneous DNA(ds,ss), SLE - High titers Nucleosomes, Histones Drug-induced SLE Speckled Sm, [employer]OM ATTENDANT, SCL-70, SLE,MCTD,PSS (diffuse form), SS-A/SS-B Sjogrens Nucleolar SCL-70, PM-1/SCL High titers Scleroderma, PM/DM Centromere Centromere PSS (limited form) w/Crest syndrome variable Nuclear Dot [id number] Primary Biliary Cirrhosis Nuclear GP210, Primary Biliary CirrhosisMembrane ban A,B,C Performed at: [facility] [id number] Director: Reggie Lazcano PhD, Phone: [phone] Myositis Autoantibodies See comment [facility] Comment on above: See report. Scanned copy available in EMR. Estimated GFR () > 60 mL/Min [facility] Comment on above: GFR estimated refere nce range: According to KDOQI guidelines, <60 ml/min/1.73m2 is sufficient to diagnose a patient with chronic kidney disease. Pharmacy Creatinine Clearance (Chem N/A [facility] Nucleated erythrocytes [Pres ence] in Blood by Automated countOrdered By: Johann Dolan on 05-05-2022 Nucleated RBC Auto Ql (Bld) 0.1 /100{WBC} 0-0.5 [facility] Platelet mean volume Auto (B ld) [Entitic vol]Ordered By: Johann Dolan on 05-05-2022 Platelet mean volume (Bld) [Entitic vol] 6.7 fL 6.3-10.7 [facility] Platelets Auto (Bld) [#/Vol] Ordered By: Johann Dolan on 05-05-2022 Platelets (Bld) [#/Vol] 379 10*3/uL 150-450 [facility] Protein [Mass/volume] in Ser um or PlasmaOrdered By: Johann Dolan on 05-05-2022 Protein [Mass/Vol] 7.0 g/dL 6.1-7.9 [facility] RBC Auto (Bld) [#/Vol]Ordere d By: Johann Dolan on 05-05-2022 RBC (Bld) [#/Vol] 4.35 10*6/uL 3.60-5.00 [facility] Serum angiotensin converting enzyme (JOS) measurementOrdered By: Johann Dolan on 05-05-2022 Angiotensin converting enzyme [Catalytic activity/Vol] U/L 1482 [facility] Comment on above: Performed at: [address] [id number] Director: Reggie Lazcano PhD, Phone: [phone] Serum nuclear antibody titer Ordered By: Johann Dolan on 05-05-2022 Nuclear Ab (S) [Titer] Positive . [facility] Comment on above: Negative <1:80 Borde rline 1:80 Positive >1:80 Serum or plasma alanine gomez otransferase measurement without P-5'-P (enzymatic activiOrdered By: Johann Dolan on 05-05-2022 ALT No additional P-5'-P [Catalytic activity/Vol] 61 U/L 10-60 [facility] Serum or plasma albumin/glob ulin mass ratioOrdered By: Johann Dolan on 05-05-2022 Albumin/Globulin [Mass ratio] 1.9 {ratio} [facility] Serum or plasma alkaline rashawn sphatase measurement (enzymatic activity/volume)Ordered By: Johann Dolan on 05-05-2022 ALP [Catalytic activity/Vol] 61 U/L 32-92 [facility] Serum or plasma anion gap de terminationOrdered By: Johann Dolan on 05-05-2022 Anion gap [Moles/Vol] 17.3 mmol/L 6.0-15.0 [facility] Serum or plasma aspartate am inotransferase measurement (enzymatic activity/volume)Ordered By: Johann Dolan on 05-05-2022 AST [Catalytic activity/Vol] 39 U/L 10-42 [facility] Serum or plasma calcium jose urement (mass/volume)Ordered By: Johann Dolan on 05-05-2022 Calcium [Mass/Vol] 10.3 mg/dL 8.2-10.2 [facility] Serum or plasma chloride shay surement (moles/volume)Ordered By: Johann Dolan on 05-05-2022 Chloride [Moles/Vol] 94 mmol/L 95-114 [facility] Serum or plasma glucose jose urement (mass/volume)Ordered By: Johann Dolan on 05-05-2022 Glucose [Mass/Vol] 119 mg/dL 70-100 [facility] Comment on above: ADA recommended refe rence rangeRandom Glucose Reference Range is dependent on time and content of last meal. Glucose of more than 200 mg/dL in a nonstressed, ambulatory subject supports the diagnosis of Diabetes Mellitus. Serum or plasma potassium me asurement (moles/volume)Ordered By: Johann Dolan on 05-05-2022 Potassium [Moles/Vol] 4.7 mmol/L 3.5-5.1 [facility] Serum or plasma sodium measu rement (moles/volume)Ordered By: Johann Dolan on 05-05-2022 Sodium [Moles/Vol] 132 mmol/L 136-146 [facility] Serum or plasma total biliru bin measurement (mass/volume)Ordered By: Johann Dolan on 05-05-2022 Bilirubin [Mass/Vol] 0.6 mg/dL 0.3-1.2 [facility] Serum or plasma total carbon dioxide measurement (moles/volume)Ordered By: Johann Dolan on 05-05-2022 CO2 [Moles/Vol] 25.4 mmol/L 22.0-30.0 [facility] Serum or plasma urea nitroge n measurement (mass/volume)Ordered By: Johann Dolan on 05-05-2022 Urea nitrogen [Mass/Vol] 12 mg/dL 12-26 [facility] Serum speckled pattern antin uclear antibody (LUIS ENRIQUE) titerOrdered By: Johann Dolan on 05-05-2022 Speckled nuclear Ab pattern (S) [Titer] 1:80 . [facility] Comment on above: ICAP nomenclature: A C-2,4,5,29 TSH DL <= 0.005 mIU/L QnOrde red By: Johann Dolan on 05-05-2022 TSH Qn 1.42 m[IU]/L 0.45-5.33 [facility] Thyroid Stimulating Hormoneo n 05-05-2022 TSH Qn 1.42 m[IU]/L Normal 0.45-5.33 [facility] Comment on above: Result Comment: PERF ORMED BY: [place] [address] PATHOLOGIST ASSISTANT AUDITOR LILLY LOTT M.D. Performed By: #### C K, CRP, CMP, CBC, ESR, TSH3 #### [address] #### ALDOLASE #### [facility] , WBC Auto (Bld) [#/Vol]Ordere d By: Johann Dolan on 05-05-2022 WBC (Bld) [#/Vol] 7.5 10*3/uL 3.8-11.6 [facility] UA RANDOM W/MICROSCOPICon BACTERIA TRACE Abnormal NONE SEEN [facility] Comment on above: Performed By: #### L IPID, BMP, NA #### [facility] [address] [address] [address] Dilip Cartagena Bilirubin Ql (U) Negative Normal NEGATIVE [facility] Comment on above: Performed By: #### L IPID, BMP, NA #### [facility] [address] [address] [address] Dilip Cartagena CAST NONE SEEN Normal NONE SEEN [facility] Comment on above: Performed By: #### L IPID, BMP, NA #### [facility] [address] [address] [address] Dilip Cartagena Clarity (U) CLEAR Normal CLEAR [facility] Comment on above: Performed By: #### L IPID, BMP, NA #### [facility] [address] [place] [address] Dr. Dilip Cartagena Color (U) DK. ORANGE Abnormal YELLOW [facility] Comment on above: Performed By: #### L IPID, BMP, NA #### [facility] [address] [place] [address] Dr. Dilip Cartagena Crystals LM Nom (Urine sed) NONE SEEN Normal NONE SEEN [facility] Comment on above: Performed By: #### L IPID, BMP, NA #### [facility] [address] [place] [address] Dr. Dilip Cartagena Epithelial cells LM Ql (Urine sed) RARE Normal NONE SEEN /RARE [facility] Comment on above: Performed By: #### L IPID, BMP, NA #### [facility] [address] [address] [address] Dilip Cartagena Glucose Ql (U) Negative Normal NEGATIVE [facility] Comment on above: Performed By: #### L IPID, BMP, NA #### [facility] [address] [place] [address] Dr. Dilip Cartagena Hemoglobin Ql (U) Negative Normal NEGATIVE [facility] Comment on above: Performed By: #### L IPID, BMP, NA #### [facility] [address] [place] [address] Dr. Dilip Cartagena Ketones Ql (U) Negative Normal NEGATIVE [facility] Comment on above: Performed By: #### L IPID, BMP, NA #### [facility] [address] [place] [address] Dr. Dilip Cartagena LEUKOCYTES TRACE Abnormal NEGATIVE [facility] Comment on above: Performed By: #### L IPID, BMP, NA #### [facility] [address] [place] [address] Dr. Dilip Cartagena MUCOUS NONE SEEN Normal NONE SEEN [facility] Comment on above: Performed By: #### L IPID, BMP, NA #### [facility] [address] [place] [address] Dr. Dilip Cartagena Nitrite Ql (U) Positive Abnormal NEGATIVE [facility] Comment on above: Performed By: #### L IPID, BMP, NA #### [facility] [address] [place] [address] Dr. Dilip Cartagena pH (U) 7.5 [pH] Normal 5-9 [facility] Comment on above: Performed By: #### L IPID, BMP, NA #### [facility] [address] [place] [address] Dr. Dilip Cartagena RBC 0-2 Normal 0-2 [facility] Comment on above: Performed By: #### L IPID, BMP, NA #### [facility] [address] [place] [address] Dr. Dilip Cartagena SPEC GRAVITY <=1.005 Abnormal 1.005-<=1. 025 [facility] Comment on above: Performed By: #### L IPID, BMP, NA #### [facility] [address] [place] [address] Dr. Dilip Cartagena UA PROTEIN Negative Normal NEGATIVE/ TRACE [facility] Comment on above: Performed By: #### L IPID, BMP, NA #### [facility] [address] [place] [address] Dr. Dilip Cartagena Urobilinogen Qn (U) 1.0 {Hallie'U}/dL Normal 0.2 - 1. 0 [facility] Comment on above: Performed By: #### L IPID, BMP, NA #### [facility] [address] [place] [address] Dr. Dilip Cartagena WBC 0-2 Abnormal NONE SEEN [facility] Comment on above: Performed By: #### L IPID, BMP, NA #### [facility] [address] [place] [address] Dr. Dilip Cartagena CKMBon 02-25-2022 CK.MB [Mass/Vol] 194.45 ng/mL Critically high <=3.60 T [facility] Comment on above: Performed By: #### L IPID, BMP, NA #### [facility] [address] [place] [address] Dr. Dilip Cartagena CPKon 02-25-2022 CK [Catalytic activity/Vol] 2549 U/L Critically high 26-192 [facility] Comment on above: Performed By: #### L IPID, BMP, NA #### [facility] [address] [place] [address] Dr. Dilip Cartagena GLYCOHEMOGLOBIN A1Con 2021 ADA RECOMMENDATION SEE BELOW Normal [facility] Comment on above: Result Comment: ADA RECOMMENDED LIMIT 4.0 - 6.0 ADA THERAPEUTIC TARGET < 7.0 ACTION SUGGESTED > 7.0 Performed By: #### U RCX #### [facility] [address] [place] [address] Dr. Dilip Cartagena Glucose [Mass/Vol] 143 mg/dL Normal [facility] Comment on above: Performed By: #### U RCX #### [facility] [address] [place] [address] Dr. Dilip Cartagena HbA1c (Bld) [Mass fraction] 6.6 % Critically high 4.5-6.2 [facility] Comment on above: Performed By: #### U RCX #### [facility] [address] [place] [address] Dr. Dilip Cartagena MYOGLOBINon 02-25-2022 REESE 1013 ng/mL Critically high 9-82 [facility] Comment on above: Performed By: #### L IPID, BMP, NA #### [facility] [address] [place] [address] Dr. Dilip Cartagena PROF CHEM 8 (BAS METB)on Anion gap [Moles/Vol] 10.3 mmol/L Normal [facility] Comment on above: Performed By: #### L IPID, BMP, NA #### [facility] [address] [place] [address] Dr. Dilip Cartagena Calcium [Mass/Vol] 9.5 mg/dL Normal 8.5-10.1 [facility] Comment on above: Performed By: #### L IPID, BMP, NA #### [facility] [facility] [address] [place] [address] Dr. Dilip Cartagena Chloride [Moles/Vol] 101 mmol/L Normal 98-107 [facility] Comment on above: Performed By: #### L IPID, BMP, NA #### [facility] [address] [place] [address] Dr. Dilip Cartagena CO2 [Moles/Vol] 29.1 mmol/L Normal 21.0-32.0 [facility] Comment on above: Performed By: #### L IPID, BMP, NA #### [facility] [address] [place] [address] Dr. Dilip Cartagena Creatinine [Mass/Vol] 0.66 mg/dL Normal 0.55-1.02 [facility] Comment on above: Performed By: #### L IPID, BMP, NA #### [facility] [address] [place] [address] Dr. Dilip Cartagena EGFR-AF CHINESE >60 Normal >=60 [facility] Comment on above: Performed By: #### L IPID, BMP, NA #### [facility] [address] [place] [address] Dr. Dilip Cartagena EGFR-NON AF CHINESE >60 Normal >=60 [facility] Comment on above: Performed By: #### L IPID, BMP, NA #### [facility] [address] [place] [address] Dr. Dilip Cartagena Glucose [Mass/Vol] 147 mg/dL Critically high 74-106 [facility] Comment on above: Performed By: #### L IPID, BMP, NA #### [facility] [address] [address] [address] Dilip Cartagena Potassium [Moles/Vol] 4.4 mmol/L Normal 3.5-5.1 [facility] Comment on above: Performed By: #### L IPID, BMP, NA #### [facility] [address] [address] [address] Dilip Cartagena Sodium [Moles/Vol] 136 mmol/L Normal 136-145 [facility] Comment on above: Performed By: #### L IPID, BMP, NA #### [facility] [address] [place] [address] Dr. Dilip Cartagena Urea nitrogen [Mass/Vol] 17.0 mg/dL Normal 7.0-18.0 [facility] Comment on above: Performed By: #### L IPID, BMP, NA #### [facility] [address] [place] [address] Dr. Dilip Cartagena Urea nitrogen/Creatinine [Mass ratio] 25.8 mg/mg Normal [facility] Comment on above: Performed By: #### L IPID, BMP, NA #### [facility] [address] [place] [address] Dr. 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 COMPRESSIBILITY: Normal compressibility. FLOW: Normal waveform and antegrade flow between 5 and 20 cm/s. OTHER: None. IMPRESSION: 1. No deep vein thrombus within the left lower extremity. 2. Clearing of previously seen deep vein thrombus and superficial thrombus. Electronically authenticated by: ERIC BERRY Date: 2022-02-25 15:50 Normal [facility] CULTURE URINEon 02-11-2022 CULTURE URINE Culture Observations : LIGHT GROWTH OF MIXED GENITAL JAVON. NO POTENTIAL PATHOGENS SEEN. Normal [facility] Comment on above: Performed By: #### U RCX #### [facility] [address] [place] [address] Dr. Dilip Cartagena UA RANDOM W/MICROSCOPICon BACTERIA TRACE Abnormal NONE SEEN [facility] Comment on above: Performed By: #### L IPID, BMP, NA #### [facility] [address] [place] [address] Dr. Dilip Cartagena Bilirubin Ql (U) Negative Normal NEGATIVE [facility] Comment on above: Performed By: #### L IPID, BMP, NA #### [facility] [address] [place] [address] Dr. Dilip Cartagena CAST NONE SEEN Normal NONE SEEN [facility] Comment on above: Performed By: #### L IPID, BMP, NA #### [facility] [address] [place] [address] Dr. Dilip Cartagena Clarity (U) CLEAR Normal CLEAR [facility] Comment on above: Performed By: #### L IPID, BMP, NA #### [facility] [address] [place] [address] Dr. Dilip Cartagena Color (U) DK. ORANGE Abnormal YELLOW [facility] Comment on above: Performed By: #### L IPID, BMP, NA #### [facility] [address] [place] [address] Dr. Dilip Cartagena Crystals LM Nom (Urine sed) NONE SEEN Normal NONE SEEN [facility] Comment on above: Performed By: #### L IPID, BMP, NA #### [facility] [address] [place] [address] Dr. Dilip Cartagena Epithelial cells LM Ql (Urine sed) FEW Abnormal NONE SEEN /RARE [facility] Comment on above: Performed By: #### L IPID, BMP, NA #### [facility] [address] [place] [address] Dr. Dilip Cartagena Glucose Ql (U) Negative Normal NEGATIVE [facility] Comment on above: Performed By: #### L IPID, BMP, NA #### [facility] [address] [place] [address] Dr. Dilip Cartagena Hemoglobin Ql (U) Negative Normal NEGATIVE [facility] Comment on above: Performed By: #### L IPID, BMP, NA #### [facility] [address] [address] [address] Dilip Cartagena Ketones Ql (U) Negative Normal NEGATIVE [facility] Comment on above: Performed By: #### L IPID, BMP, NA #### [facility] [address] [place] [address] Dr. Dilip Cartagena LEUKOCYTES Negative Normal NEGATIVE [facility] Comment on above: Performed By: #### L IPID, BMP, NA #### [facility] [address] [place] [address] Dr. Dilip Cartagena MUCOUS NONE SEEN Normal NONE SEEN [facility] Comment on above: Performed By: #### L IPID, BMP, NA #### [facility] [address] [place] [address] Dr. Dilip Cartagena Nitrite Ql (U) Positive Abnormal NEGATIVE [facility] Comment on above: Performed By: #### L IPID, BMP, NA #### [facility] [address] [place] [address] Dr. Dilip Cartagena pH (U) 7.0 [pH] Normal 5-9 [facility] Comment on above: Performed By: #### L IPID, BMP, NA #### [facility] [address] [place] [address] Dr. Dilip Cartagena RBC 0-2 Normal 0-2 [facility] Comment on above: Performed By: #### L IPID, BMP, NA #### [facility] [address] [place] [address] Dr. Dilip Cartagena SPEC GRAVITY 1.010 Normal 1.005-<=1. 025 [facility] Comment on above: Performed By: #### L IPID, BMP, NA #### [facility] [address] [place] [address] Dr. Dilip Cartagena UA PROTEIN Negative Normal NEGATIVE/ TRACE [facility] Comment on above: Performed By: #### L IPID, BMP, NA #### [facility] [address] [place] [address] Dr. Dilip Cartagena Urobilinogen Qn (U) 1.0 {Hallie'U}/dL Normal 0.2 - 1. 0 [facility] Comment on above: Performed By: #### L IPID, BMP, NA #### [facility] [address] [place] [address] Dr. Dilip Cartagena WBC 0-2 Abnormal NONE SEEN [facility] Comment on above: Performed By: #### L IPID, BMP, NA #### [facility] [address] [place] [address] Dr. Dilip Cartagena LUIS ENRIQUE by IFAon 02-03-2022 Antinuclear Antibodies, IFA Positive Abnormal [facility] Comment on above: Result Comment: Nega tive <1:80 Borderline 1:80 Positive >1:80 Performed By: #### U RCX #### [facility] [address] [place] [address] Dr. Dilip Cartagena Centriole Pattern Normal [facility] Comment on above: Performed By: #### U RCX #### [facility] [address] [place] [address] Dr. Dilip Cartagena Centromere Pattern Normal [facility] Comment on above: Performed By: #### U RCX #### [facility] [address] [place] [address] Dr. Dilip Cartagena Homogeneous Pattern 1:80 Normal [facility] Comment on above: Result Comment: ICAP nomenclature: AC-1 Performed By: #### U RCX #### [facility] [address] [place] [address] Dr. Dilip Cartagena Midbody Pattern Normal [facility] Comment on above: Performed By: #### U RCX #### [facility] [address] [place] [address] Dr. Dilip Cartagena Note: Comment Normal [facility] Comment on above: Result Comment: For more information about Hep-2 cell patterns use ANApatterns.org, the official website for the International Consensus on Antinuclear Antibody (LUIS ENRIQUE) Patterns (ICAP). A positive LUIS ENRIQUE result may occur in healthy individuals (low titer) or be associated with a variety of diseases. See interpretation chart which is not all inclusive: . Pattern Antigen Detected Suggested Disease Association Homogeneous DNA(ds,ss), SLE - High titers Nucleosomes, Histones Drug-induced SLE Speckled Sm, [employer], SCL-70, SLE,MCTD,PSS (diffuse form), SS-A/SS-B Sjogrens Nucleolar SCL-70, PM-1/SCL High titers Scleroderma, PM/DM Centromere Centromere PSS (limited form) w/Crest syndrome variable Nuclear Dot [id number] Primary Biliary Cirrhosis Nuclear GP210, Primary Biliary Cirrhosis Membrane ban A,B,C Performed By: #### U RCX #### [facility] [address] [place] [address] Dr. Dilip Cartagena Nuclear Dot Pattern Normal [facility] Comment on above: Performed By: #### U RCX #### [facility] [address] [place] [address] Dr. Dilip Cartagena Nuclear Membrane Pattern Normal [facility] Comment on above: Performed By: #### U RCX #### [facility] [address] [place] [address] Dr. Dilip Cartagena Nucleolar Pattern Normal [facility] Comment on above: Performed By: #### U RCX #### [facility] [address] [place] [address] Dr. Dilip Cartagena PCNA Pattern Normal [facility] Comment on above: Performed By: #### U RCX #### [facility] [address] [place] [address] Dr. Dilip Cartagena Speckled Pattern Normal [facility] Comment on above: Performed By: #### U RCX #### [facility] [address] [place] [address] Dr. Dilip Cartagena Spindle Apparatus Pattern Normal [facility] Comment on above: Performed By: #### U RCX #### [facility] [address] [place] [address] Dr. Dilip Cartagena ANTISTREPTOLYSIN O AB (ASO)o n 01-31-2022 Antistreptolysin O Ab 25.1 IU/mL Normal 0.0-200.0 [facility] Comment on above: Performed By: #### L IPID, BMP, NA #### [facility] [address] [place] [address] Dr. Dilip Cartagena RHEUMATOID FACTORon 02-01-20 RA Latex Turbid. 10.1 IU/mL Normal <14.0 [facility] Comment on above: Performed By: #### U RCX #### [facility] [address] [place] [address] Dr. Dilip Cartagena CKMBon 01-30-2022 CK.MB [Mass/Vol] 227.84 ng/mL Critically high <=3.60 T [facility] Comment on above: Performed By: #### L IPID, BMP, NA #### [facility] [address] [place] [address] Dr. Dilip Cartagena CPKon 01-30-2022 CK [Catalytic activity/Vol] 3698 U/L Critically high 26-192 [facility] Comment on above: Performed By: #### L IPID, BMP, NA #### [facility] [address] [place] [address] Dr. Dilip Cartagena CRPon 01-30-2022 CRP [Mass/Vol] mg/L Normal <=1.0 [facility] Comment on above: Performed By: #### L IPID, BMP, NA #### [facility] [address] [place] [address] Dr. Dilip Cartagena MYOGLOBINon 01-30-2022 REESE 2773 ng/mL Critically high 9-82 [facility] Comment on above: Performed By: #### L IPID, BMP, NA #### [facility] [address] [place] [address] Dr. Dilip Cartagena SED RATE WESTERGRENon 2021 SED RATE 20 mm/hr Normal <=30 [facility] Comment on above: Performed By: #### U RCX #### [facility] [address] [place] [address] Dr. Dilip Cartagena URIC ACID SERUMon 01-30-2022 Urate [Mass/Vol] 5.3 mg/dL Normal 2.6-6.0 [facility] Comment on above: Performed By: #### L IPID, BMP, NA #### [facility] [address] [place] [address] Dr. Dilip Cartagena ALDOLASEon 01-28-2022 Aldolase 27.1 U/L Critically high 3.3-10.3 [facility] Comment on above: Performed By: #### U RCX #### [facility] [address] [place] [address] Dr. Dilip Cartagena CKMBon 01-26-2022 CK.MB [Mass/Vol] 244.24 ng/mL Critically high <=3.60 T [facility] Comment on above: Performed By: #### U RCX #### [facility] [address] [place] [address] Dr. Dilip Cartagena CPKon 01-26-2022 CK [Catalytic activity/Vol] 4430 U/L Critically high 26-192 [facility] Comment on above: Performed By: #### L IPID, BMP, NA #### [facility] [address] [place] [address] Dr. Dilip Cartagena CREATININEon 01-26-2022 Creatinine [Mass/Vol] 0.76 mg/dL Normal 0.55-1.02 [facility] Comment on above: Performed By: #### L IPID, BMP, NA #### [facility] [address] [place] [address] Dr. Dilip Cartagena EGFR-AF CHINESE >60 Normal >=60 [facility] Comment on above: Performed By: #### L IPID, BMP, NA #### [facility] [address] [place] [address] Dr. Dilip Cartagena EGFR-NON AF CHINESE >60 Normal >=60 [facility] Comment on above: Performed By: #### L IPID, BMP, NA #### [facility] [address] [place] [address] Dr. Dilip Cartagena MYOGLOBINon 01-26-2022 REESE 2514 ng/mL Critically high 9-82 [facility] Comment on above: Performed By: #### L IPID, BMP, NA #### [facility] [address] [place] [address] Dr. Dilip Cartagena PROF CHEM 8 (BAS METB)on Anion gap [Moles/Vol] 9.4 mmol/L Normal [facility] Comment on above: Performed By: #### L IPID, BMP, NA #### [facility] [address] [address] [address] Dilip Cartagena Calcium [Mass/Vol] 8.8 mg/dL Normal 8.5-10.1 [facility] Comment on above: Performed By: #### L IPID, BMP, NA #### [facility] [address] [address] [address] Dilip Cartagena Chloride [Moles/Vol] 104 mmol/L Normal 98-107 [facility] Comment on above: Performed By: #### L IPID, BMP, NA #### [facility] [address] [address] [address] Dilip Cartagena CO2 [Moles/Vol] 27.4 mmol/L Normal 21.0-32.0 [facility] Comment on above: Performed By: #### L IPID, BMP, NA #### [facility] [address] [address] [address] Dilip Cartagena Glucose [Mass/Vol] 141 mg/dL Critically high 74-106 [facility] Comment on above: Performed By: #### L IPID, BMP, NA #### [facility] [address] [address] [address] Dilip Cartagena Potassium [Moles/Vol] 4.8 mmol/L Normal 3.5-5.1 [facility] Comment on above: Performed By: #### L IPID, BMP, NA #### [facility] [address] [address] [address] Dilip Cartagena Sodium [Moles/Vol] 136 mmol/L Normal 136-145 [facility] Comment on above: Performed By: #### L IPID, BMP, NA #### [facility] [address] [address] [address] Dilip Cartagena Urea nitrogen [Mass/Vol] 15.0 mg/dL Normal 7.0-18.0 [facility] Comment on above: Performed By: #### L IPID, BMP, NA #### [facility] [address] [address] [address] Dilip Cartagena Urea nitrogen/Creatinine [Mass ratio] 19.7 mg/mg Normal [facility] Comment on above: Performed By: #### L IPID, BMP, NA #### [facility] [id number] Dilip Cartagena US BEV DOP LEG RTon 01-27-20 US BEV DOP LEG RT EXAMINATION: BEV DOP LEG RT HISTORY: Pain in right leg COMPARISON: No relevant comparison available. FINDINGS: REGION: Right lower extremity THROMBI: None. COMPRESSIBILITY: Normal compressibility. FLOW: Normal waveform and antegrade flow between 5 and 20 cm/s. OTHER: None. IMPRESSION: 1. No deep vein thrombus within the right lower extremity. Electronically authenticated by: ERIC BERRY Date: 2022-01-26 18:51 Normal [facility] CULTURE BLOODon 01-21-2022 Microscopic examination of blood, culture Culture Observations: POSITIVE AEROBIC BOTTLE @ 1120 01/17/22 Culture Observations: bcid= staph spp. called to lala chaney @ 1252 by katherin mckeon Culture Observations: NO GROWTH. ANAEROBIC BOTTLE Isolate 1 Staphylococcus hominis Growth of ORGANISM 1 Staphylococcus hominis ANTIBIOTIC M.I.C RX STATUS Beta-Lactamase Neg NEG F Cefoxitin Screen Pos POS F Benzylpenicillin >=0.5 R F Gentamicin <=0.5 S F Ciprofloxacin <=0.5 S F Levofloxacin <=0.12 S F Inducible Clindamycin Resistance Neg NEG F Erythromycin <=0.25 S F Clindamycin <=0.25 S F Quinupristin/Dalfopristin <=0.25 S F Linezolid 2 S F Vancomycin 1 S F Tetracycline 2 S F Rifampicin <=0.5 S F Trimethoprim/Sulfamethoxazo le 40 S F Oxacillin 1 R F Normal [facility] Comment on above: Performed By: #### L IPID, BMP, NA #### [facility] [id number] Dilip Cartagena BNPon 01-17-2022 Natriuretic peptide B (Bld) [Mass/Vol] 792.0 pg/mL Normal <=1,800.0 [facility] Comment on above: Performed By: #### P OCGLUC #### [facility] [address] [address] [address] Dilip Cartagena CARDIAC JON ADMITon 022 CK [Catalytic activity/Vol] 2872 U/L Critically high 26-192 [facility] Comment on above: Performed By: #### U RCX #### [facility] [address] [place] [address] Dr. Dilip Cartagena CK.MB [Mass/Vol] 143.67 ng/mL Critically high <=3.60 T [facility] Comment on above: Performed By: #### U RCX #### [facility] [address] [place] [address] Dr. Dilip Cartagena HSTROP 25.6 pg/mL Normal 4.0-51.3 [facility] Comment on above: Result Comment: CUT- OFF POINTS HAVE BEEN ESTABLISHED BASED ON THE FOURTH UNIVERSAL DEFINITIONS OF MYOCARDIAL INFARCTION. THE UPPER REFERENCE LIMIT (URL) OF TROPONIN, DEFINED THE 99TH PERCENTILE OF cTnI DISTRIBUTION IN A REFERENCE POPULATION, HAS BEEN CONFIRMED THE DECISION THRESHOLD FOR [place] DIAGNOSIS. Performed By: #### U RCX #### [facility] [address] [place] [address] Dr. Dilip Cartagena REESE 1364 ng/mL Critically high 9-82 [facility] Comment on above: Performed By: #### U RCX #### [facility] [address] [place] [address] Dr. Dilip Cartagena CBC AUTO DIFFon 01-17-2022 BASO # 0.0 103/ul Normal 0.0-0.1 [facility] Comment on above: Performed By: #### U RCX #### [facility] [address] [place] [address] Dr. Dilip Cartagena Basophils/100 WBC (Bld) 0.4 % Normal 0.2-2.0 [facility] Comment on above: Performed By: #### U RCX #### [facility] [address] [place] [address] Dr. Dilip Cartagena EO # 0.1 103/ul Normal 0.0-0.7 [facility] Comment on above: Performed By: #### U RCX #### [facility] [address] [place] [address] Dr. Dilip Cartagena Eosinophils/100 WBC (Bld) 1.8 % Normal 0.9-7.0 [facility] Comment on above: Performed By: #### U RCX #### [facility] [address] [place] [address] Dr. Dilip Cartagena Erythrocyte distribution width (RBC) [Ratio] 14.0 % Normal 11.0-15.0 [facility] Comment on above: Performed By: #### U RCX #### [facility] [address] [place] [address] Dr. Dilip Cartagena Hematocrit (Bld) [Volume fraction] 36.0 % Normal 36.0-48.0 [facility] Comment on above: Performed By: #### U RCX #### [facility] [address] [place] [address] Dr. Dilip Cartagena Hemoglobin (Bld) [Mass/Vol] 11.4 g/dL Critically low 12.0-16.0 [facility] Comment on above: Performed By: #### U RCX #### [facility] [address] [place] [address] Dr. Dilip Cartagena IG # 0.06 10e3/ul Critically high 0.00-0.03 [facility] Comment on above: Performed By: #### U RCX #### [facility] [address] [place] [address] Dr. Dilip Cartagena IG % 0.9 % Critically high 0.0-0.5 [facility] Comment on above: Performed By: #### U RCX #### [facility] [address] [place] [address] Dr. Dilip Cartagena LYMPH # 2.1 103/ul Normal 1.2-3.8 [facility] Comment on above: Performed By: #### U RCX #### [facility] [address] [place] [address] Dr. Dilip Cartagena Lymphocytes/100 WBC (Bld) 30.6 % Normal 20.5-60.0 [facility] Comment on above: Performed By: #### U RCX #### [facility] [address] [place] [address] Dr. Dilip Cartagena MANUAL DIFF REQ NO Normal [facility] Comment on above: Performed By: #### U RCX #### [facility] [address] [place] [address] Dr. Dilip Cartagena MCH (RBC) [Entitic mass] 30.4 pg Normal 26.7-34.0 [facility] Comment on above: Performed By: #### U RCX #### [facility] [address] [place] [address] Dr. Dilip Cartagena MCHC (RBC) [Mass/Vol] 31.7 g/dL Normal 29.9-35.2 [facility] Comment on above: Performed By: #### U RCX #### [facility] [address] [place] [address] Dr. Dilip Cartagena MCV (RBC) [Entitic vol] 96.0 fL Normal 81.0-99.0 [facility] Comment on above: Performed By: #### U RCX #### [facility] [address] [place] [address] Dr. Dilip Cartagena MONO # 0.5 103/ul Normal 0.3-0.8 [facility] Comment on above: Performed By: #### U RCX #### [facility] [address] [place] [address] Dr. Dilip Cartagena Monocytes/100 WBC (Bld) 7.3 % Normal 1.7-12.0 [facility] Comment on above: Performed By: #### U RCX #### [facility] [address] [place] [address] Dr. Dilip Cartagena NEUT # 4.0 103/ul Normal 1.4-6.5 [facility] Comment on above: Performed By: #### U RCX #### [facility] [address] [place] [address] Dr. Dilip Cartagena Neutrophils/100 WBC (Bld) 59.0 % Normal 43.0-75.0 [facility] Comment on above: Performed By: #### U RCX #### [facility] [address] [address] [address] Dilip Cartagena Platelet mean volume (Bld) [Entitic vol] 9.2 fL Critically low 9.5-13.5 [facility] Comment on above: Performed By: #### U RCX #### [facility] [address] [address] [address] Dilip Cartagena PLT 285 103/ul Normal 150-450 [facility] Comment on above: Performed By: #### U RCX #### [facility] [address] [address] [address] Dilip Cartagena RBC 3.75 106/ul Critically low 4.20-5.40 [facility] Comment on above: Performed By: #### U RCX #### [facility] [address] [place] [address] Dr. Dilip Cartagena WBC 6.7 103/ul Normal 4.0-11.0 [facility] Comment on above: Performed By: #### U RCX #### [facility] [address] [place] [address] Dr. Dilip Cartagena POINT OF CARE GLUCOSEon 01-03 Glucose [Mass/Vol] 137 mg/dL Critically high 74-106 [facility] Comment on above: Performed By: #### L IPID, BMP, NA #### [facility] [address] [place] [address] Dr. Dilip Cartagena Glucose [Mass/Vol] 125 mg/dL Critically high 74-106 [facility] Comment on above: Performed By: #### U RCX #### [facility] [address] [place] [address] Dr. Dilip Cartagena PROF 14(COMP METB)on 01-17- 022 Albumin [Mass/Vol] 2.9 g/dL Critically low 3.4-5.0 [facility] Comment on above: Performed By: #### U RCX #### [facility] [address] [place] [address] Dr. Dilip Cartagena Albumin/Globulin [Mass ratio] 0.9 {ratio} Normal [facility] Comment on above: Performed By: #### U RCX #### [facility] [address] [address] [address] Dilip Cartagena ALP [Catalytic activity/Vol] 47 U/L Normal 46-116 [facility] Comment on above: Performed By: #### U RCX #### [facility] [address] [address] [address] Dilip Cartagena ALT [Catalytic activity/Vol] 138 U/L Critically high 14-59 [facility] Comment on above: Performed By: #### U RCX #### [facility] [address] [address] [address] Dilip Cartagena Anion gap [Moles/Vol] 11.4 mmol/L Normal [facility] Comment on above: Performed By: #### U RCX #### [facility] [address] [address] [address] Dilip Cartagena AST [Catalytic activity/Vol] 70 U/L Critically high 15-37 [facility] Comment on above: Performed By: #### U RCX #### [facility] [address] [address] [address] Dilip Cartagena Bilirubin [Mass/Vol] 0.4 mg/dL Normal 0.2-1.0 [facility] Comment on above: Performed By: #### U RCX #### [facility] [address] [address] [address] Dilip Cartagena Calcium [Mass/Vol] 8.4 mg/dL Critically low 8.5-10.1 [facility] Comment on above: Performed By: #### U RCX #### [facility] [address] [address] [address] Dilip Cartagena Chloride [Moles/Vol] 103 mmol/L Normal 98-107 [facility] Comment on above: Performed By: #### U RCX #### [facility] [address] [address] [address] Dilip Cartagena CO2 [Moles/Vol] 23.7 mmol/L Normal 21.0-32.0 [facility] Comment on above: Performed By: #### U RCX #### [facility] [address] [address] [address] Dilip Cartagena Creatinine [Mass/Vol] 0.66 mg/dL Normal 0.55-1.02 [facility] Comment on above: Performed By: #### U RCX #### [facility] [address] [address] [address] Dilip Cartagena EGFR-AF CHINESE >60 Normal >=60 [facility] Comment on above: Performed By: #### U RCX #### [facility] [address] [place] [address] Dr. Dilip Cartagena EGFR-NON AF CHINESE >60 Normal >=60 [facility] Comment on above: Performed By: #### U RCX #### [facility] [address] [place] [address] Dr. Dilip Cartagena Globulin (S) [Mass/Vol] 3.2 g/dL Normal [facility] Comment on above: Performed By: #### U RCX #### [facility] [address] [address] [address] Dilip Cartagena Glucose [Mass/Vol] 111 mg/dL Critically high 74-106 [facility] Comment on above: Performed By: #### U RCX #### [facility] [address] [place] [address] Dr. Dilip Cartagena Potassium [Moles/Vol] 5.1 mmol/L Normal 3.5-5.1 [facility] Comment on above: Performed By: #### U RCX #### [facility] [address] [place] [address] Dr. Dilip Cartagena Protein [Mass/Vol] 6.1 g/dL Critically low 6.4-8.2 [facility] Comment on above: Performed By: #### U RCX #### [facility] [address] [place] [address] Dr. Dilip Cartagena Sodium [Moles/Vol] 133 mmol/L Critically low 136-145 [facility] Comment on above: Performed By: #### U RCX #### [facility] [address] [place] [address] Dr. Dilip Cartagena Urea nitrogen [Mass/Vol] 15.0 mg/dL Normal 7.0-18.0 [facility] Comment on above: Performed By: #### U RCX #### [facility] [address] [place] [address] Dr. Dilip Cartagena Urea nitrogen/Creatinine [Mass ratio] 22.7 mg/mg Normal [facility] Comment on above: Performed By: #### U RCX #### [facility] [address] [place] [address] Dr. Dilip Cartagena T3, TOTAL (TRIIODOTHYRONINE) on 01-17-2022 T3, TOTAL 105 ng/dL Normal 71-180 [facility] Comment on above: Performed By: #### L IPID, BMP, NA #### [facility] [address] [place] [address] Dr. Dilip Cartagena AMYLASEon 01-16-2022 Amylase [Catalytic activity/Vol] 42 U/L Normal 25-115 [facility] Comment on above: Performed By: #### L IPID, BMP, NA #### [facility] [address] [place] [address] Dr. Dilip Cartagena Amylase [Catalytic activity/Vol] 55 U/L Normal 25-115 [facility] Comment on above: Performed By: #### U RCX #### [facility] [address] [place] [address] Dr. Dilip Cartagena Amylase [Catalytic activity/Vol] 52 U/L Normal 25-115 [facility] Comment on above: Performed By: #### P OCGLUC #### [facility] [address] [place] [address] Dr. Dilip Cartagena BLOOD CULTURE ID PANELon A. baumannii Not detected Normal NOT DETECTED [facility] Comment on above: Performed By: #### L IPID, BMP, NA #### [facility] [address] [place] [address] Dr. Dilip Cartagena Bacteriodes fragilis Not detected Normal NOT DETECTED [facility] Comment on above: Performed By: #### L IPID, BMP, NA #### [facility] [address] [address] [address] Dilip Cartagena BCID CONTROLS PASSED [facility] Comment on above: Performed By: #### L IPID, BMP, NA #### [facility] [address] [address] [address] Dilip Cartagena BCIDBTHD BLOOD CULTURE BOTTLE INFORMATION Normal [facility] Comment on above: Performed By: #### L IPID, BMP, NA #### [facility] [address] [address] [address] Dilip Cartagena BCIDHD1 ANTIMICROBIAL RESIST ANCE GENES [facility] Comment on above: Performed By: #### L IPID, BMP, NA #### [facility] [address] [place] [address] Dr. Dilip Cartagena BCIDHD2 SEE BELOW [facility] Comment on above: Result Comment: Note : Antimicrobial resitance can occur via multiple mechanisms. A Not Detected result for the [employer] antomicrobial resistance gene assays does not indicate antimicrobial susceptibility. Subculturing is required for species identification and susceptibility testing of isolates. Performed By: #### L IPID, BMP, NA #### [facility] [address] [address] [address] Dilip Catragena BCIDHD3 Positive [facility] Comment on above: Performed By: #### L IPID, BMP, NA #### [facility] [address] [place] [address] Dr. Dilip Cartagena BCIDHD4 Negative [facility] Comment on above: Performed By: #### L IPID, BMP, NA #### [facility] [address] [place] [address] Dr. Dilip Cartagena BCIDHD5 YEAST [facility] Comment on above: Performed By: #### L IPID, BMP, NA #### [facility] [address] [place] [address] Dr. Dilip Cartagena Bottle Set: Set 1 [facility] Comment on above: Performed By: #### L IPID, BMP, NA #### [facility] [address] [place] [address] Dr. Dilip Cartagena Bottle: Aerobic Normal [facility] Comment on above: Performed By: #### L IPID, BMP, NA #### [facility] [address] [place] [address] Dr. Dilip Cartagena C. neoformans/gattii Not detected Normal NOT DETECTED [facility] Comment on above: Performed By: #### L IPID, BMP, NA #### [facility] [address] [place] [address] Dr. Dilip Cartagena Neyda albicans Not detected Normal NOT DETECTED [facility] Comment on above: Performed By: #### L IPID, BMP, NA #### [facility] [address] [place] [address] Dr. Dilip Cartagena Neyda auris Not detected Normal NOT DETECTED [facility] Comment on above: Performed By: #### L IPID, BMP, NA #### [facility] [address] [place] [address] Dr. Dilip Cartagena Neyda glabrata Not detected Normal NOT DETECTED [facility] Comment on above: Performed By: #### L IPID, BMP, NA #### [facility] [address] [place] [address] Dr. Dilip Cartagena Neyda Krusei Not detected Normal NOT DETECTED [facility] Comment on above: Performed By: #### L IPID, BMP, NA #### [facility] [address] [place] [address] Dr. Dilip Cartagena Neyda Parapsilosis Not detected Normal NOT DETECTED [facility] Comment on above: Performed By: #### L IPID, BMP, NA #### [facility] [address] [place] [address] Dr. Dilip Cartagena Neyda Tropicalis Not detected Normal NOT DETECTED [facility] Comment on above: Performed By: #### L IPID, BMP, NA #### [facility] [address] [place] [address] Dr. Dilip Cartagena CTX-M Resistant Gene Not Applicable Normal NOT DETECTED [facility] Comment on above: Performed By: #### L IPID, BMP, NA #### [facility] [address] [place] [address] Dr. Dilip Cartagena E. Cloacae complex Not detected Normal NOT DETECTED [facility] Comment on above: Performed By: #### L IPID, BMP, NA #### [facility] [address] [place] [address] Dr. Dilip Cartagena E. faecalis Not detected Normal NOT DETECTED [facility] Comment on above: Performed By: #### L IPID, BMP, NA #### [facility] [address] [place] [address] Dr. Dilip Cartagena E. faecium Not detected Normal NOT DETECTED [facility] Comment on above: Performed By: #### L IPID, BMP, NA #### [facility] [address] [place] [address] Dr. Dilip Cartagena Enterobacteriaceae Not detected Normal NOT DETECTED [facility] Comment on above: Performed By: #### L IPID, BMP, NA #### [facility] [address] [place] [address] Dr. Dilip Cartagena Escherichia coli Not detected Normal NOT DETECTED [facility] Comment on above: Performed By: #### L IPID, BMP, NA #### [facility] [address] [place] [address] Dr. Dilip Cartagena H. influenzae Not detected Normal NOT DETECTED [facility] Comment on above: Performed By: #### L IPID, BMP, NA #### [facility] [address] [place] [address] Dr. Dilip Cartagena IMP Resistant Gene Not Applicable Normal NOT DETECTED [facility] Comment on above: Performed By: #### L IPID, BMP, NA #### [facility] [address] [place] [address] Dr. Dilip Cartagena K. oxytoca Not detected Normal NOT DETECTED [facility] Comment on above: Performed By: #### L IPID, BMP, NA #### [facility] [address] [place] [address] Dr. Dilip Cartagena K. pneumoniae Not detected Normal NOT DETECTED [facility] Comment on above: Performed By: #### L IPID, BMP, NA #### [facility] [address] [place] [address] Dr. Dilip Cartagena Klebsiella aerogenes Not detected Normal NOT DETECTED [facility] Comment on above: Performed By: #### L IPID, BMP, NA #### [facility] [address] [place] [address] Dr. Dilip Cartagena KPC Resistant Gene Not Applicable Normal NOT DETECTED [facility] Comment on above: Performed By: #### L IPID, BMP, NA #### [facility] [address] [place] [address] Dr. Dilip Cartagena List. monocytogenes Not detected Normal NOT DETECTED [facility] Comment on above: Performed By: #### L IPID, BMP, NA #### [facility] [address] [place] [address] Dr. Dilip Cartagena Mcr-1 Resistant Gene Not Applicable Normal NOT DETECTED [facility] Comment on above: Performed By: #### L IPID, BMP, NA #### [facility] [address] [place] [address] Dr. Dilip Cartagena mecA/C Not Applicable Normal NOT DETECTED [facility] Comment on above: Performed By: #### L IPID, BMP, NA #### [facility] [address] [place] [address] Dr. Dilip Cartagena mecA/C MREJ Not Applicable Normal NOT DETECTED [facility] Comment on above: Performed By: #### L IPID, BMP, NA #### [facility] [address] [place] [address] Dr. Dilip Cartagena N. meningitidis Not detected Normal NOT DETECTED [facility] Comment on above: Performed By: #### L IPID, BMP, NA #### [facility] [address] [place] [address] Dr. Dilip Cartagena NDM Resistant Gene Not Applicable Normal NOT DETECTED [facility] Comment on above: Performed By: #### L IPID, BMP, NA #### [facility] [address] [place] [address] Dr. Dilip Cartagena Oxa-48-like Not Applicable Normal NOT DETECTED [facility] Comment on above: Performed By: #### L IPID, BMP, NA #### [facility] [address] [address] [address] Dilip Cartagena Proteus Not detected Normal NOT DETECTED [facility] Comment on above: Performed By: #### L IPID, BMP, NA #### [facility] [address] [place] [address] Dr. Dilip Cartagena Pseud. aeruginosa Not detected Normal NOT DETECTED [facility] Comment on above: Performed By: #### L IPID, BMP, NA #### [facility] [address] [place] [address] Dr. Dilip Cartagena S. maltophilia Not detected Normal NOT DETECTED [facility] Comment on above: Performed By: #### L IPID, BMP, NA #### [facility] [address] [place] [address] Dr. Dilip Cartagena Salmonella Not detected Normal NOT DETECTED [facility] Comment on above: Performed By: #### L IPID, BMP, NA #### [facility] [address] [place] [address] Dr. Dilip Cartagena Seratia marcescens Not detected Normal NOT DETECTED [facility] Comment on above: Performed By: #### L IPID, BMP, NA #### [facility] [address] [place] [address] Dr. Dilip Cartagena Site: left arm Normal [facility] Comment on above: Performed By: #### L IPID, BMP, NA #### [facility] [address] [place] [address] Dr. Dilip Cartagena Staph. aureus Not detected Normal NOT DETECTED [facility] Comment on above: Performed By: #### L IPID, BMP, NA #### [facility] [address] [place] [address] Dr. Dilip Cartagena Staph. epidermidis Not detected Normal NOT DETECTED [facility] Comment on above: Performed By: #### L IPID, BMP, NA #### [facility] [address] [place] [address] Dr. Dilip Cartagena Staph. lugdunensis Not detected Normal NOT DETECTED [facility] Comment on above: Performed By: #### L IPID, BMP, NA #### [facility] [address] [place] [address] Dr. Dilip Cartagena Staphylococcus Detected Abnormal NOT DETECTED [facility] Comment on above: Performed By: #### L IPID, BMP, NA #### [facility] [address] [place] [address] Dr. Dilip Cartagena Strep. agalactiae Not detected Normal NOT DETECTED [facility] Comment on above: Performed By: #### L IPID, BMP, NA #### [facility] [address] [place] [address] Dr. Dilip Cartagena Strep. pneumoniae Not detected Normal NOT DETECTED [facility] Comment on above: Performed By: #### L IPID, BMP, NA #### [facility] [address] [place] [address] Dr. Dilip Cartagena Strep. pyogenes Not detected Normal NOT DETECTED [facility] Comment on above: Performed By: #### L IPID, BMP, NA #### [facility] [address] [place] [address] Dr. Dilip Cartagena Streptococcus Not detected Normal NOT DETECTED [facility] Comment on above: Performed By: #### L IPID, BMP, NA #### [facility] [address] [place] [address] Dr. Dilip Kumari/Bere Resist. Gene Not Applicable Normal NOT DETECTED [facility] Comment on above: Performed By: #### L IPID, BMP, NA #### [facility] [address] [place] [address] Dr. Dilip Cartagena VIM Resistant Gene Not Applicable Normal NOT DETECTED [facility] Comment on above: Performed By: #### L IPID, BMP, NA #### [facility] [address] [place] [address] Dr. Dilip Cartagena BNPon 01-16-2022 Natriuretic peptide B (Bld) [Mass/Vol] 584.0 pg/mL Normal <=1,800.0 [facility] Comment on above: Performed By: #### P OCGLUC #### [facility] [address] [place] [address] Dr. Dilip Cartagena CARDIAC JON 3-6on 2 CK [Catalytic activity/Vol] 5303 U/L Critically high 26-192 [facility] Comment on above: Performed By: #### C MREP #### [facility] [address] [address] [address] Dilip Cartagena CK.MB [Mass/Vol] 280.92 ng/mL Critically high <=3.60 [facility] Comment on above: Performed By: #### C MREP #### [facility] [address] [address] [address] Dilip Cartagena HSTROP 20.1 pg/mL Normal 4.0-51.3 [facility] Comment on above: Result Comment: CUT- OFF POINTS HAVE BEEN ESTABLISHED BASED ON THE FOURTH UNIVERSAL DEFINITIONS OF MYOCARDIAL INFARCTION. THE UPPER REFERENCE LIMIT (URL) OF TROPONIN, DEFINED THE 99TH PERCENTILE OF cTnI DISTRIBUTION IN A REFERENCE POPULATION, HAS BEEN CONFIRMED THE DECISION THRESHOLD FOR [place] DIAGNOSIS. Performed By: #### C MREP #### [facility] [address] [place] [address] Dr. Dilip Cartagena CK [Catalytic activity/Vol] 6224 U/L Critically high 26-192 [facility] Comment on above: Performed By: #### U RCX #### [facility] [address] [place] [address] Dr. Dilip Cartagena CK.MB [Mass/Vol] 341.85 ng/mL Critically high <=3.60 [facility] Comment on above: Performed By: #### U RCX #### [facility] [address] [place] [address] Dr. Dilip Cartagena HSTROP 27.2 pg/mL Normal 4.0-51.3 [facility] Comment on above: Result Comment: CUT- OFF POINTS HAVE BEEN ESTABLISHED BASED ON THE FOURTH UNIVERSAL DEFINITIONS OF MYOCARDIAL INFARCTION. THE UPPER REFERENCE LIMIT (URL) OF TROPONIN, DEFINED THE 99TH PERCENTILE OF cTnI DISTRIBUTION IN A REFERENCE POPULATION, HAS BEEN CONFIRMED THE DECISION THRESHOLD FOR [place] DIAGNOSIS. Performed By: #### U RCX #### [facility] [address] [address] [address] Dilip Cartagena CARDIAC JON ADMITon 022 CK [Catalytic activity/Vol] 6161 U/L Critically high 26-192 [facility] Comment on above: Performed By: #### U RCX #### [facility] [address] [place] [address] Dr. Dilip Cartagena CK.MB [Mass/Vol] 314.21 ng/mL Critically high <=3.60 [facility] Comment on above: Performed By: #### U RCX #### [facility] [address] [place] [address] Dr. Dilip Cartagena HSTROP 27.5 pg/mL Normal 4.0-51.3 [facility] Comment on above: Result Comment: CUT- OFF POINTS HAVE BEEN ESTABLISHED BASED ON THE FOURTH UNIVERSAL DEFINITIONS OF MYOCARDIAL INFARCTION. THE UPPER REFERENCE LIMIT (URL) OF TROPONIN, DEFINED THE 99TH PERCENTILE OF cTnI DISTRIBUTION IN A REFERENCE POPULATION, HAS BEEN CONFIRMED THE DECISION THRESHOLD FOR [place] DIAGNOSIS. Performed By: #### U RCX #### [facility] [address] [place] [address] Dr. Dilip Cartagena REESE 3384 ng/mL Critically high 9-82 [facility] Comment on above: Performed By: #### U RCX #### [facility] [address] [place] [address] Dr. Dilip Cartagena CBC AUTO DIFFon 01-16-2022 BASO # 0.0 103/ul Normal 0.0-0.1 [facility] Comment on above: Performed By: #### P OCGLUC #### [facility] [address] [place] [address] Dr. Dilip Cartagena Basophils/100 WBC (Bld) 0.3 % Normal 0.2-2.0 [facility] Comment on above: Performed By: #### P OCGLUC #### [facility] [address] [place] [address] Dr. Dilip Cartagena EO # 0.1 103/ul Normal 0.0-0.7 [facility] Comment on above: Performed By: #### P OCGLUC #### [facility] [address] [address] [address] Dilip Cartagena Eosinophils/100 WBC (Bld) 1.2 % Normal 0.9-7.0 [facility] Comment on above: Performed By: #### P OCGLUC #### [facility] [address] [place] [address] Dr. Dilip Cartagena Erythrocyte distribution width (RBC) [Ratio] 13.9 % Normal 11.0-15.0 [facility] Comment on above: Performed By: #### P OCGLUC #### [facility] [address] [place] [address] Dr. Dilip Cartagena Hematocrit (Bld) [Volume fraction] 40.2 % Normal 36.0-48.0 [facility] Comment on above: Performed By: #### P OCGLUC #### [facility] [address] [place] [address] Dr. Dilip Cartagena Hemoglobin (Bld) [Mass/Vol] 12.8 g/dL Normal 12.0-16.0 [facility] Comment on above: Performed By: #### P OCGLUC #### [facility] [address] [place] [address] Dr. Dilip Cartagena IG # 0.07 10e3/ul Critically high 0.00-0.03 [facility] Comment on above: Performed By: #### P OCGLUC #### [facility] [address] [place] [address] Dr. Dilip Cartagena IG % 0.7 % Critically high 0.0-0.5 [facility] Comment on above: Performed By: #### P OCGLUC #### [facility] [address] [place] [address] Dr. Dilip Cartagena LYMPH # 2.5 103/ul Normal 1.2-3.8 [facility] Comment on above: Performed By: #### P OCGLUC #### [facility] [address] [place] [address] Dr. Dilip Cartagena Lymphocytes/100 WBC (Bld) 26.2 % Normal 20.5-60.0 [facility] Comment on above: Performed By: #### P OCGLUC #### [facility] [address] [address] [address] Dilip Cartagena MANUAL DIFF REQ NO Normal [facility] Comment on above: Performed By: #### P OCGLUC #### [facility] [address] [address] [address] Dilip Cartagena MCH (RBC) [Entitic mass] 30.2 pg Normal 26.7-34.0 [facility] Comment on above: Performed By: #### P OCGLUC #### [facility] [address] [address] [address] Dilip Cartagena MCHC (RBC) [Mass/Vol] 31.8 g/dL Normal 29.9-35.2 [facility] Comment on above: Performed By: #### P OCGLUC #### [facility] [address] [place] [address] Dr. Dilip Cartagena MCV (RBC) [Entitic vol] 94.8 fL Normal 81.0-99.0 [facility] Comment on above: Performed By: #### P OCGLUC #### [facility] [address] [place] [address] Dr. Dilip Cartagena MONO # 0.6 103/ul Normal 0.3-0.8 [facility] Comment on above: Performed By: #### P OCGLUC #### [facility] [address] [place] [address] Dr. Dilip Cartagena Monocytes/100 WBC (Bld) 6.0 % Normal 1.7-12.0 [facility] Comment on above: Performed By: #### P OCGLUC #### [facility] [address] [place] [address] Dr. Dilip Cartagena NEUT # 6.1 103/ul Normal 1.4-6.5 [facility] Comment on above: Performed By: #### P OCGLUC #### [facility] [address] [place] [address] Dr. Dilip Cartagena Neutrophils/100 WBC (Bld) 65.6 % Normal 43.0-75.0 [facility] Comment on above: Performed By: #### P OCGLUC #### [facility] [address] [address] [address] Dilip Cartagena Platelet mean volume (Bld) [Entitic vol] 8.7 fL Critically low 9.5-13.5 [facility] Comment on above: Performed By: #### P OCGLUC #### [facility] [address] [place] [address] Dr. Dilip Cartagena PLT 335 103/ul Normal 150-450 [facility] Comment on above: Performed By: #### P OCGLUC #### [facility] [address] [address] [address] Dilip Cartagena RBC 4.24 106/ul Normal 4.20-5.40 [facility] Comment on above: Performed By: #### P OCGLUC #### [facility] [address] [place] [address] Dr. Dilip Cartagena WBC 9.4 103/ul Normal 4.0-11.0 [facility] Comment on above: Performed By: #### P OCGLUC #### [facility] [address] [place] [address] ABD/PELV W CONon 01-17-20 CT ABD/PELV W CON EXAMINATION: CT ABD/ PELV W CON HISTORY: Pain COMPARISON: None. TECHNIQUE: Axial CT images through the abdomen and pelvis were obtained after the intravenous administration of 100 mL Omnipaque 300 contrast. Coronal and sagittal reformats were obtained. Dose reduction techniques were achieved by using automated exposure control and/or adjustment of mA and/or kV according to patient size and/or use of iterative reconstruction technique. FINDINGS: There is mild bibasilar atelectasis and/or scarring. Partially imaged is an at least moderate-sized hiatal hernia. Abdomen: There is a subcentimeter hypodensity in the right hepatic lobe which is too small to characterize by CT size criteria. The liver is enlarged measuring up to 17.8 cm at the right midclavicular line. Otherwise, the liver and spleen enhance homogeneously without focal lesion. There is no intra or extrahepatic biliary duct dilatation. There is gallbladder sludge and/or cholelithiasis without evidence of acute inflammation. There is nonspecific thickening of the adrenal glands with an indeterminate left adrenal nodule measuring up to 2.0 x 1.6 cm (series 3, image 30). There is a subcentimeter hypodensity in the left kidney which is too small to characterize by CT size criteria. There is a prominent amount of stool throughout the colon without evidence of bowel obstruction. Otherwise, the pancreas, right adrenal gland, kidneys, and bowel loops are unremarkable. The appendix is not seen. There is no mesenteric or retroperitoneal lymphadenopathy. Pelvis: The bladder and rectum are unremarkable. There is no iliac or inguinal lymphadenopathy. The patient is status post hysterectomy. There is advanced atherosclerotic disease. Partially imaged is a DVT within the left common femoral vein. Bone windows show no aggressive osseous lesions. Suspected spina bifida is noted. IMPRESSION: 1. Partially imaged at least moderate-sized hiatal hernia. 2. Hepatomegaly. 3. Gallbladder sludge and/or cholelithiasis without evidence of acute inflammation. 4. Nonspecific thickening of the adrenal glands with an indeterminate left adrenal nodule measuring up to 2.0 x 1.6 cm. This could be further evaluated with a nonemergent outpatient contrast-enhanced MRI examination if clinically indicated. 5. Prominent amount of stool throughout the colon without evidence of bowel obstruction. 6. Status post hysterectomy and possible appendectomy as the appendix is not seen. 7. Partially imaged DVT within the left common femoral vein. Consider further evaluation with a left lower extremity ultrasound. Finding #[address] Jacob by Dr. Martinez at 5:33 AM EST on 01/16/2022. Electronically authenticated by: Manuelito MARTINEZ Date: 2022-01-16 05:33 Normal [facility] CULTURE BLOODon 01-16-2022 Microscopic examination of blood, culture Culture Observations: NO GROWTH AT 5 DAYS. Isolate 1 [id number] Normal [facility] Comment on above: Performed By: #### L IPID, BMP, NA #### [facility] [address] [place], [place] [address] Dr. Dilip Cartagena CULTURE URINEon 01-16-2022 CULTURE URINE Culture Observations : NO GROWTH. Normal [facility] Comment on above: Performed By: #### U RCX #### [facility] [address] [place], [place] [address] Dr. Dilip Cartagena Covid-19 PCR ([facility])on 01-03 SARS-CoV-2 (COVID-19) RNA NAKUL+probe Ql (Unsp spec) Not detected Normal NOT DETECTED [facility] Comment on above: Result Comment: When diagnostic testing is negative, the possibility of a false negative should be considered in the context of a patient's recent exposures and the presence of clinical signs and symptoms consistent with SARS-CoV-2. This test is not yet approved or cleared by the [place] FDA. When there are no FDA-approved or cleared tests available, and other criteria are met, FDA can make tests available under an emergency access mechanism called an Emergency Use Authorization (EUA). The EUA for this test is supported by the [place] [facility] [employer] Service's declaration that circumstances exist to justify the emergency use of in vitro diagnostics for the detection and/or diagnosis of the virus that causes COVID-19. This EUA will remain in effect for the duration of the COVID-19 declaration justifying emergency of IVDs, unless it is terminated or revoked by the FDA (after which the test may no longer be used). Performed By: #### U RCX #### [facility] [address] [place] [address] Dr. Dilip Cartagena ECHO LIMITED STUDYon -14-2 022 ECHO LIMITED STUDY Patient: ELOISA ELIZALDE Exam Date: 01/16/2022 : 1940 Gender:F Ordering : DR CECILY VIEIRA . Admission #: [id number] Family : [facility] Order #: [id number] CLICK HERE TO VIEW EXAM ECHOCARDIOGRAM REPORT PROCEDURE: CARDIO PULMONARY ECHO LIMITED STUDY INDICATIONS: Elevated CK and CKMB COMPARISON: None. DESCRIPTION: Limited ECHOCARDIOGRAM Real-time transthoracic echocardiography with 2D and M-mode performed. QUALITY: Technical quality was adequate. Limited echocardiogram per physician order. 65 174# BP 173/111 LEFT VENTRICLE: Normal chamber size. Normal left ventricular wall thickness. LV EF: Normal left ventricular ejection fraction, (>55%). DIASTOLIC: ATRIAL SEPTUM: LEFT ATRIUM: Normal chamber size. RIGHT ATRIUM: Normal chamber size. RIGHT VENTRICLE: Normal chamber size. Normal systolic function. TRICUSPID VALVE: Normal mobility and thickness. MITRAL VALVE: Normal mobility and thickness. Mild mitral annular calcification. AORTIC VALVE: Normal trileaflet appearance. No visible sclerosis. Normal leaflet mobility. AORTIC ROOT: Normal diameter and appearance. PULMONIC VALVE: Not well visualized. PERICARDIUM: No evidence of pericardial effusion. IVC: Within normal limits. PLEURA: CONCLUSION: 1. Normal ventricular systolic function. LVEF is 65%. 2. No pericardial effusion. 3. Limited study performed with no Doppler interrogation as requested. Adult Echocardiography Procedure Report Left Ventricle LVEDD (3.7 - 5.6 cm): 5.02 cm LVESD (2.2 - 4.0 cm): 3.26 cm LVIVS thickness (0.6 - 1.2 cm): 0.94 cm LVPW thickness (0.5 - 1.0 cm): 0.72 cm LVOT Diameter 2.28 cm Left Ventricular Ejection Fraction: 65% Left Atrium Left Atrium Systolic Dimension: 3.08 cm Mitral Valve Right Ventricle Aorta AO Root Diam: 2.70 cm Aortic Valve Tricuspid Valve Pulmonic Valve Right Atrium Dictated by: Yandel Kimball M.D. on 01/16/2022 at 14:32 Approved by: Yandel Kimball M.D. on 01/16/2022 at 14:35 Normal [facility] LACTATE/LACTIC ACIDon 2021 Lactate [Moles/Vol] 0.7 mmol/L Normal 0.4-1.9 [facility] Comment on above: Performed By: #### U RCX #### [facility] [address] [place] [address] Dr. Dilip Cartagena Lactate [Moles/Vol] 1.5 mmol/L Normal 0.4-1.9 [facility] Comment on above: Performed By: #### U RCX #### [facility] [address] [place] [address] Dr. Dilip Cartagena LIPASEon 01-16-2022 Lipase [Catalytic activity/Vol] 59.0 U/L Critically low 73.0-393.0 [facility] Comment on above: Performed By: #### L IPID, BMP, NA #### [facility] [address] [place] [address] Dr. Dilip Cartagena Lipase [Catalytic activity/Vol] 118.0 U/L Normal 73.0-393.0 [facility] Comment on above: Performed By: #### U RCX #### [facility] [address] [address] [address] Dilip Cartagena Lipase [Catalytic activity/Vol] 101.0 U/L Normal 73.0-393.0 [facility] Comment on above: Performed By: #### P OCGLUC #### [facility] [address] [address] [address] Dilip Cartagena POINT OF CARE GLUCOSEon 01-03 Glucose [Mass/Vol] 168 mg/dL Critically high 74-106 [facility] Comment on above: Performed By: #### P OCGLUC #### [facility] [address] [address] [address] Dilip Cartagena Glucose [Mass/Vol] 106 mg/dL Normal 74-106 [facility] Comment on above: Performed By: #### L IPID, BMP, NA #### [facility] [address] [place] [address] Dr. Dilip Cartagena Glucose [Mass/Vol] 221 mg/dL Critically high 74-106 [facility] Comment on above: Performed By: #### L IPID, BMP, NA #### [facility] [address] [place] [address] Dr. Dilip Cartagena PROF 14(COMP METB)on 022 Albumin [Mass/Vol] 3.8 g/dL Normal 3.4-5.0 [facility] Comment on above: Performed By: #### U RCX #### [facility] [address] [place] [address] Dr. Dilip Cartagena Albumin/Globulin [Mass ratio] 1.2 {ratio} Normal [facility] Comment on above: Performed By: #### U RCX #### [facility] [address] [place] [address] Dr. Dilip Cartagena ALP [Catalytic activity/Vol] 52 U/L Normal 46-116 [facility] Comment on above: Performed By: #### U RCX #### [facility] [address] [address] [address] Dilip Cartagena ALT [Catalytic activity/Vol] 194 U/L Critically high 14-59 [facility] Comment on above: Performed By: #### U RCX #### [facility] [address] [address] [address] Dilip Cartagena Anion gap [Moles/Vol] 13.5 mmol/L Normal [facility] Comment on above: Performed By: #### U RCX #### [facility] [address] [address] [address] Dilip Cartagena AST [Catalytic activity/Vol] 110 U/L Critically high 15-37 [facility] Comment on above: Performed By: #### U RCX #### [facility] [address] [address] [address] Dilip Cartagena Bilirubin [Mass/Vol] 0.4 mg/dL Normal 0.2-1.0 [facility] Comment on above: Performed By: #### U RCX #### [facility] [address] [address] [address] Dilip Cartagena Calcium [Mass/Vol] 8.9 mg/dL Normal 8.5-10.1 [facility] Comment on above: Performed By: #### U RCX #### [facility] [address] [address] [address] Dilip Cartagena Chloride [Moles/Vol] 99 mmol/L Normal 98-107 [facility] Comment on above: Performed By: #### U RCX #### [facility] [address] [address] [address] Dilip Cartagena CO2 [Moles/Vol] 26.1 mmol/L Normal 21.0-32.0 [facility] Comment on above: Performed By: #### U RCX #### [facility] [address] [address] [address] Dilip Cartagena Creatinine [Mass/Vol] 0.93 mg/dL Normal 0.55-1.02 [facility] Comment on above: Performed By: #### U RCX #### [facility] [address] [address] [address] Dilip Cartagena EGFR-AF CHINESE >60 Normal >=60 [facility] Comment on above: Performed By: #### U RCX #### [facility] [address] [address] [address] Dilip Cartagena EGFR-NON AF CHINESE 58 mL/min/1.73m2 Critically low >=60 [facility] Comment on above: Performed By: #### U RCX #### [facility] [address] [address] [address] Dilip Cartagena Globulin (S) [Mass/Vol] 3.3 g/dL Normal [facility] Comment on above: Performed By: #### U RCX #### [facility] [address] [address] [address] Dilip Cartagena Glucose [Mass/Vol] 143 mg/dL Critically high 74-106 [facility] Comment on above: Performed By: #### U RCX #### [facility] [address] [address] [address] Dilip Cartagena Potassium [Moles/Vol] 4.6 mmol/L Normal 3.5-5.1 [facility] Comment on above: Performed By: #### U RCX #### [facility] [address] [address] [address] Dilip Cartagena Protein [Mass/Vol] 7.1 g/dL Normal 6.4-8.2 [facility] Comment on above: Performed By: #### U RCX #### [facility] [address] [address] [address] Dilip Cartagena Sodium [Moles/Vol] 134 mmol/L Critically low 136-145 [facility] Comment on above: Performed By: #### U RCX #### [facility] [address] [address] [address] Dilip Cartagena Urea nitrogen [Mass/Vol] 21.0 mg/dL Critically high 7.0-18.0 [facility] Comment on above: Performed By: #### U RCX #### [facility] [address] [address] [address] Dilip Cartagena Urea nitrogen/Creatinine [Mass ratio] 22.6 mg/mg Normal [facility] Comment on above: Performed By: #### U RCX #### [facility] [address] [place] [address] Dr. Dilip Cartagena T4on 01-16-2022 T4 [Mass/Vol] 10.90 ug/dL Normal 4.80-13.90 [facility] Comment on above: Performed By: #### P OCGLUC #### [facility] [address] [place] [address] Dr. Dilip Cartagena TSHon 01-16-2022 TSH 3.536 uIU/mL Normal 0.358-3.74 0 [facility] Comment on above: Performed By: #### P OCGLUC #### [facility] [address] [place] [address] Dr. Dilip Cartagena UA RANDOM W/MICROSCOPICon BACTERIA TRACE Abnormal NONE SEEN [facility] Comment on above: Performed By: #### U RCX #### [facility] [address] [place] [address] Dr. Dilip Cartagena Bilirubin Ql (U) Negative Normal NEGATIVE [facility] Comment on above: Performed By: #### U RCX #### [facility] [address] [place] [address] Dr. Dilip Cartagena CAST NONE SEEN Normal NONE SEEN [facility] Comment on above: Performed By: #### U RCX #### [facility] [address] [place] [address] Dr. Dilip Cartagena Clarity (U) CLEAR Normal CLEAR [facility] Comment on above: Performed By: #### U RCX #### [facility] [address] [place] [address] Dr. Dilip Cartagena Color (U) DK. ORANGE Abnormal YELLOW [facility] Comment on above: Performed By: #### U RCX #### [facility] [address] [place] [address] Dr. Dilip Cartagena Crystals LM Nom (Urine sed) NONE SEEN Normal NONE SEEN [facility] Comment on above: Performed By: #### U RCX #### [facility] [address] [place] [address] Dr. Dilip Cartagena Epithelial cells LM Ql (Urine sed) RARE Normal NONE SEEN /RARE [facility] Comment on above: Performed By: #### U RCX #### [facility] [address] [place] [address] Dr. Dilip Cartagena Glucose Ql (U) Negative Normal NEGATIVE [facility] Comment on above: Performed By: #### U RCX #### [facility] [address] [place] [address] Dr. Dilip Cartagena Hemoglobin Ql (U) SMALL Abnormal NEGATIVE [facility] Comment on above: Performed By: #### U RCX #### [facility] [address] [place] [address] Dr. Dilip Cartagena Ketones Ql (U) 40 mg/dl Abnormal NEGATIVE [facility] Comment on above: Performed By: #### U RCX #### [facility] [address] [place] [address] Dr. Dilip Cartagena LEUKOCYTES TRACE Abnormal NEGATIVE [facility] Comment on above: Performed By: #### U RCX #### [facility] [address] [place] [address] Dr. Dilip Cartagena MUCOUS NONE SEEN Normal NONE SEEN [facility] Comment on above: Performed By: #### U RCX #### [facility] [address] [place] [address] Dr. Dilip Cartagena Nitrite Ql (U) Positive Abnormal NEGATIVE [facility] Comment on above: Performed By: #### U RCX #### [facility] [address] [place] [address] Dr. Dilip Cartagena pH (U) 6.5 [pH] Normal 5-9 [facility] Comment on above: Performed By: #### U RCX #### [facility] [address] [place] [address] Dr. Dilip Cartagena RBC 0-2 Normal 0-2 [facility] Comment on above: Performed By: #### U RCX #### [facility] [address] [place] [address] Dr. Dilip Cartagena SPEC GRAVITY 1.010 Normal 1.005-<=1. 025 [facility] Comment on above: Performed By: #### U RCX #### [facility] [address] [address] [address] Dilip Cartagena UA PROTEIN TRACE Normal NEGATIVE/ TRACE [facility] Comment on above: Performed By: #### U RCX #### [facility] [address] [address] [address] Dilip Cartagena Urobilinogen Qn (U) 0.2 {Hallie'U}/dL Normal 0.2 - 1. 0 [facility] Comment on above: Performed By: #### U RCX #### [facility] [address] [address] [address] Dilip Cartagena WBC 2-5 Abnormal NONE SEEN [facility] Comment on above: Performed By: #### U RCX #### [facility] [address] [place] [address] Dr. Dilip Cartagena US SINGLE QUAD RT UPPERon US SINGLE QUAD RT UPPER EXAMINATION: US SINGLE QUAD RT UPPER HISTORY: Pain COMPARISON: No relevant comparison available. FINDINGS: The liver appears prominent in size measuring 21.8 cm. Normal in contour and echotexture with no focal mass. Hepatopedal flow in the main portal vein The gallbladder is normal in appearance. The wall measures 2.4 mm. Negative sonographic Ludwig sign. The common bile duct measures 7.2 mm The visualized pancreatic body is normal The right kidney is normal measuring 8.9 x 5.4 x 4.7 cm. No hydronephrosis or solid mass IMPRESSION: Mild hepatomegaly with normal echotexture and no focal mass Electronically authenticated by: LORETTA ORELLANA Date: 2022-01-16 08:00 Normal [facility] US BEV DOP LEG LTon 01-17-20 US BEV DOP LEG LT EXAMINATION: US BEV DOP LEG LT HISTORY: Deep venous thrombosis of lower extremity (disorder) COMPARISON: CT exam same day TECHNIQUE: Grayscale, color and Doppler ultrasound FINDINGS: Region: Left leg Thrombus: Echogenic thrombus identified within the superficial greater saphenous vein distal to proximal thigh extending into the common femoral vein 3.9 cm. Flow: Decreased flow corresponding to thrombus Augmentation: Normal augmentation in the area of thrombus Compressibility: Noncompressibility corresponding to thrombus IMPRESSION: Moderate nonocclusive superficial vein thrombus great saphenous and deep vein thrombus common femoral vein *Exam performed in accordance with [facility] practice guidelines- Peripheral venous ultrasound, June 29, 2009. Electronically authenticated by: LORETTA ORELLANA Date: 2022-01-16 07:58 Normal [facility] XR CHEST 2 Von 01-16-2022 XR CHEST 2 V EXAM: XR CHEST 2 V HISTORY: Pain COMPARISON: None available TECHNIQUE: 2 view chest x-ray frontal and lateral FINDINGS: Cardiomegaly. Moderate to large hiatal hernia. Left lower lung streaky opacity. No large pleural effusions, pneumothorax, or acute bony abnormality. Calcified plaques thoracic aortic knob. IMPRESSION: Cardiomegaly. Moderate to large hiatal hernia. Left lower lung streaky opacities reflect atelectasis/scar or infiltrates. Electronically authenticated by: JOHANN PARKS Date: 2022-01-16 05:12 Normal [facility] CULTURE URINEon 01-03-2022 CULTURE URINE Isolate 1 Proteus mirabilis >100,000 cfu/ml of ORGANISM 1 Proteus mirabilis ANTIBIOTIC M.I.C RX STATUS Ampicillin <=2 S F Ampicillin/Sulbactam <=2 S F Piperacillin/Tazobactam <=4 S F Cefazolin <=4 S F Ceftazidime <=1 S F Ceftriaxone <=1 S F Ertapenem <=0.5 S F Imipenem 1 S F Amikacin <=2 S F Gentamicin <=1 S F Tobramycin <=1 S F Ciprofloxacin <=0.25 S F Levofloxacin <=0.12 S F Nitrofurantoin 128 R F Trimethoprim/Sulfamethoxazo le <=20 S F Normal [facility] Comment on above: Performed By: #### U RCX #### [facility] [address] [place] [address] Dr. Dilip Cartagena UA RANDOM W/MICROSCOPICon BACTERIA MODERATE Abnormal NONE SEEN [facility] Comment on above: Performed By: #### U RCX #### [facility] [address] [place] [address] Dr. Dilip Cartagena Bilirubin Ql (U) Negative Normal NEGATIVE [facility] Comment on above: Performed By: #### U RCX #### [facility] [address] [address] [address] Dilip Cartagena CAST NONE SEEN Normal NONE SEEN [facility] Comment on above: Performed By: #### U RCX #### [facility] [address] [address] [address] Dilip Cartagena Clarity (U) SL CLOUDY Abnormal CLEAR [facility] Comment on above: Performed By: #### U RCX #### [facility] [address] [address] [address] Dilip Cartagena Color (U) YELLOW Normal YELLOW [facility] Comment on above: Performed By: #### U RCX #### [facility] [address] [place] [address] Dr. Dilip Cartagena Crystals LM Nom (Urine sed) NONE SEEN Normal NONE SEEN [facility] Comment on above: Performed By: #### U RCX #### [facility] [address] [place] [address] Dr. Dilip Cartagena Epithelial cells LM Ql (Urine sed) FEW Abnormal NONE SEEN /RARE [facility] Comment on above: Performed By: #### U RCX #### [facility] [address] [place] [address] Dr. Dilip Cartagena Glucose Ql (U) Negative Normal NEGATIVE [facility] Comment on above: Performed By: #### U RCX #### [facility] [address] [place] [address] Dr. Dilip Cartagena Hemoglobin Ql (U) SMALL Abnormal NEGATIVE [facility] Comment on above: Performed By: #### U RCX #### [facility] [address] [place] [address] Dr. Dilip Cartagena Ketones Ql (U) Negative Normal NEGATIVE [facility] Comment on above: Performed By: #### U RCX #### [facility] [address] [place] [address] Dr. Dilip Cartagena LEUKOCYTES LARGE Abnormal NEGATIVE [facility] Comment on above: Performed By: #### U RCX #### [facility] [address] [place] [address] Dr. Dilip Cartagena MUCOUS NONE SEEN Normal NONE SEEN [facility] Comment on above: Performed By: #### U RCX #### [facility] [address] [place] [address] Dr. Dilip Cartagena Nitrite Ql (U) Negative Normal NEGATIVE [facility] Comment on above: Performed By: #### U RCX #### [facility] [address] [place] [address] Dr. Dilip Cartagena pH (U) 8.5 [pH] Normal 5-9 [facility] Comment on above: Performed By: #### U RCX #### [facility] [address] [place] [address] Dr. Dilip Cartagena RBC 0-2 Normal 0-2 [facility] Comment on above: Performed By: #### U RCX #### [facility] [address] [place] [address] Dr. Dilip Cartagena SPEC GRAVITY 1.010 Normal 1.005-<=1. 025 [facility] Comment on above: Performed By: #### U RCX #### [facility] [address] [place] [address] Dr. Dilip Cartagena UA PROTEIN TRACE Normal NEGATIVE/ TRACE [facility] Comment on above: Performed By: #### U RCX #### [facility] [address] [place] [address] Dr. Dilip Cartagena Urobilinogen Qn (U) 0.2 {Hallie'U}/dL Normal 0.2 - 1. 0 [facility] Comment on above: Performed By: #### U RCX #### [facility] [address] [place] [address] Dr. Dilip Cartagena WBC 2-5 Abnormal NONE SEEN [facility] Comment on above: Performed By: #### U RCX #### [facility] [address] [place] [address] Dr. Dilip Cartagena CULTURE URINEon 12-22-2021 CULTURE URINE Culture Observations : LIGHT GROWTH OF MIXED GENITAL JAVON. NO POTENTIAL PATHOGENS SEEN. Normal [facility] Comment on above: Performed By: #### U RCX #### [facility] [address] [place] [address] Dr. Dilip Cartagena UA RANDOM W/MICROSCOPICon BACTERIA NONE SEEN Normal NONE SEEN [facility] Comment on above: Performed By: #### P OCGLUC #### [facility] [address] [address] [address] Dilip Cartagena Bilirubin Ql (U) Negative Normal NEGATIVE [facility] Comment on above: Performed By: #### P OCGLUC #### [facility] [address] [address] [address] Dilip Cartagena CAST NONE SEEN Normal NONE SEEN [facility] Comment on above: Performed By: #### P OCGLUC #### [facility] [address] [address] [address] Dilip Cartagena Clarity (U) CLEAR Normal CLEAR [facility] Comment on above: Performed By: #### P OCGLUC #### [facility] [address] [place] [address] Dr. Dilip Cartagena Color (U) LT. YELLOW Normal YELLOW [facility] Comment on above: Performed By: #### P OCGLUC #### [facility] [address] [place] [address] Dr. Dilip Cartagena Crystals LM Nom (Urine sed) NONE SEEN Normal NONE SEEN [facility] Comment on above: Performed By: #### P OCGLUC #### [facility] [address] [place] [address] Dr. Dilip Cartagena Epithelial cells LM Ql (Urine sed) FEW Abnormal NONE SEEN /RARE [facility] Comment on above: Performed By: #### P OCGLUC #### [facility] [address] [place] [address] Dr. Dilip Cartagena Glucose Ql (U) Negative Normal NEGATIVE [facility] Comment on above: Performed By: #### P OCGLUC #### [facility] [address] [address] [address] Dilip Cartagena Hemoglobin Ql (U) Negative Normal NEGATIVE [facility] Comment on above: Performed By: #### P OCGLUC #### [facility] [address] [place] [address] Dr. Dilip Cartagena Ketones Ql (U) Negative Normal NEGATIVE [facility] Comment on above: Performed By: #### P OCGLUC #### [facility] [address] [place] [address] Dr. Dilip Cartagena LEUKOCYTES Negative Normal NEGATIVE [facility] Comment on above: Performed By: #### P OCGLUC #### [facility] [address] [place] [address] Dr. Dilip Cartagena MUCOUS NONE SEEN Normal NONE SEEN [facility] Comment on above: Performed By: #### P OCGLUC #### [facility] [address] [place] [address] Dr. Dilip Cartagena Nitrite Ql (U) Negative Normal NEGATIVE [facility] Comment on above: Performed By: #### P OCGLUC #### [facility] [address] [place] [address] Dr. Dilip Cartagena pH (U) 6.0 [pH] Normal 5-9 [facility] Comment on above: Performed By: #### P OCGLUC #### [facility] [address] [place] [address] Dr. Dilip Cartagena RBC NONE SEEN Abnormal 0-2 [facility] Comment on above: Performed By: #### P OCGLUC #### [facility] [address] [place] [address] Dr. Dilip Cartagena SPEC GRAVITY 1.005 Normal 1.005-<=1. 025 [facility] Comment on above: Performed By: #### P OCGLUC #### [facility] [address] [place] [address] Dr. Dilip Cartagena UA PROTEIN Negative Normal NEGATIVE/ TRACE [facility] Comment on above: Performed By: #### P OCGLUC #### [facility] [address] [place] [address] Dr. Dilip Cartagena Urobilinogen Qn (U) 0.2 {Hallie'U}/dL Normal 0.2 - 1. 0 [facility] Comment on above: Performed By: #### P OCGLUC #### [facility] [address] [place] [address] Dr. Dilip Cartagena WBC NONE SEEN Normal NONE SEEN [facility] Comment on above: Performed By: #### P OCGLUC #### [facility] [address] [address] [address] Dilip Cartagena CULTURE URINEon 12-07-2021 CULTURE URINE Isolate 1 Proteus mirabilis >100,000 cfu/mL of Isolate 2 Escherichia coli >100,000 cfu/mL of ORGANISM 1 Proteus mirabilis ANTIBIOTIC M.I.C RX STATUS Ampicillin <=2 S F Ampicillin/Sulbactam <=2 S F Piperacillin/Tazobactam <=4 S F Cefazolin <=4 S F Ceftazidime <=1 S F Ceftriaxone <=1 S F Ertapenem <=0.5 S F Imipenem 0.5 S F Amikacin <=2 S F Gentamicin <=1 S F Tobramycin <=1 S F Ciprofloxacin <=0.25 S F Levofloxacin <=0.12 S F Nitrofurantoin 128 R F Trimethoprim/Sulfamethoxazo le <=20 S F ORGANISM 2 Escherichia coli ANTIBIOTIC M.I.C RX STATUS Ampicillin 8 S F Ampicillin/Sulbactam 4 S F Piperacillin/Tazobactam <=4 S F Cefazolin <=4 S F Ceftazidime <=1 S F Ceftriaxone <=1 S F Ertapenem <=0.5 S F Imipenem <=0.25 S F Amikacin <=2 S F Gentamicin <=1 S F Tobramycin <=1 S F Ciprofloxacin <=0.25 S F Levofloxacin <=0.12 S F Nitrofurantoin <=16 S F Trimethoprim/Sulfamethoxazo le <=20 S F Normal [facility] Comment on above: Performed By: #### U RCX #### [facility] [address] [place] [address] Dr. Dilip Cartagena UA RANDOM W/MICROSCOPICon BACTERIA LARGE Abnormal NONE SEEN [facility] Comment on above: Performed By: #### P OCGLUC #### [facility] [address] [place] [address] Dr. Dilip Cartagena Bilirubin Ql (U) SMALL Abnormal NEGATIVE [facility] Comment on above: Performed By: #### P OCGLUC #### [facility] [address] [address] [address] Dilip Cartagena CAST NONE SEEN Normal NONE SEEN [facility] Comment on above: Performed By: #### P OCGLUC #### [facility] [address] [address] [address] Dilip Cartagena Clarity (U) CLEAR Normal CLEAR [facility] Comment on above: Performed By: #### P OCGLUC #### [facility] [address] [place] [address] Dr. Dilip Cartagena Color (U) DK. ORANGE Abnormal YELLOW [facility] Comment on above: Performed By: #### P OCGLUC #### [facility] [address] [place] [address] Dr. Dilip Cartagena Crystals LM Nom (Urine sed) NONE SEEN Normal NONE SEEN [facility] Comment on above: Performed By: #### P OCGLUC #### [facility] [address] [place] [address] Dr. Dilip Cartagena Epithelial cells LM Ql (Urine sed) FEW Abnormal NONE SEEN /RARE [facility] Comment on above: Performed By: #### P OCGLUC #### [facility] [address] [place] [address] Dr. Dilip Cartagena Glucose Ql (U) 100 mg/dl Abnormal NEGATIVE [facility] Comment on above: Performed By: #### P OCGLUC #### [facility] [address] [place] [address] Dr. Dilip Cartagena Hemoglobin Ql (U) LARGE Abnormal NEGATIVE [facility] Comment on above: Performed By: #### P OCGLUC #### [facility] [address] [place] [address] Dr. Dilip Cartagena Ketones Ql (U) TRACE Abnormal NEGATIVE [facility] Comment on above: Performed By: #### P OCGLUC #### [facility] [address] [place] [address] Dr. Dilip Cartagena LEUKOCYTES SMALL Abnormal NEGATIVE [facility] Comment on above: Performed By: #### P OCGLUC #### [facility] [address] [place] [address] Dr. Dilip Cartagena MUCOUS NONE SEEN Normal NONE SEEN [facility] Comment on above: Performed By: #### P OCGLUC #### [facility] [address] [address] [address] Dilip Cartagena Nitrite Ql (U) Positive Abnormal NEGATIVE [facility] Comment on above: Performed By: #### P OCGLUC #### [facility] [address] [place] [address] Dr. Dilip Cartagena pH (U) 8.0 [pH] Normal 5-9 [facility] Comment on above: Performed By: #### P OCGLUC #### [facility] [address] [place] [address] Dr. Dilip Cartagena RBC 50-75 Abnormal 0-2 [facility] Comment on above: Performed By: #### P OCGLUC #### [facility] [address] [place] [address] Dr. Dilip Cartagena SPEC GRAVITY <=1.005 Abnormal 1.005-<=1. 025 [facility] Comment on above: Performed By: #### P OCGLUC #### [facility] [address] [place] [address] Dr. Dilip Cartagena UA PROTEIN >300 Abnormal NEGATIVE/ TRACE [facility] Comment on above: Performed By: #### P OCGLUC #### [facility] [address] [place] [address] Dr. Dilip Cartagena Urobilinogen Qn (U) 1.0 {Hallie'U}/dL Normal 0.2 - 1. 0 [facility] Comment on above: Performed By: #### P OCGLUC #### [facility] [address] [place] [address] Dr. Dilip Cartagena WBC 10-20 Abnormal NONE SEEN [facility] Comment on above: Performed By: #### P OCGLUC #### [facility] [address] [place] [address] Dr. Dilip Cartagena XR KNEE CATRACHITO 4V or >on 2021 XR KNEE CATRACHITO 4V or > EXAMINATION: XR HIPS CATRACHITO 5V W PELVIS, XR KNEE CATRACHITO 4V or > HISTORY: Pain in right hip joint COMPARISON: No relevant comparison available. FINDINGS: RIGHT FINDINGS: BONES: No significant arthropathy or acute abnormality. SOFT TISSUES: No visible soft tissue swelling. OTHER: Negative. LEFT FINDINGS: BONES: No significant arthropathy or acute abnormality. SOFT TISSUES: No visible soft tissue swelling. OTHER: Negative. IMPRESSION: RIGHT CONCLUSION: No acute bone abnormality. Minimal degenerative changes of the right hip and knee joints. LEFT CONCLUSION: No acute bone abnormality. Minimal degenerative changes of the left hip and knee joints. Electronically authenticated by: ERIC BERRY Date: 2021-12-04 15:[address] [facility] MAMM SCREEN 3D CATRACHITO CADon 10-29-2021 MG MAMM SCREEN 3D CATRACHITO CAD Patient: JAMARI ELIZALDE Exam Date: 10/29/2021 : 1940 Gender:F Ordering : DR KILO CHAVEZ M.D. Admission #: [id number] Family : Order #: [id number] CLICK HERE TO VIEW EXAM RADIOLOGY REPORT PROCEDURE: MAMMOGRAM SCREENING 3D BILATERAL CAD COMPARISON: MG MAMM SCREEN CATRACHITO W CAD, 09/20/2019. MG MAMM SCREEN CATRACHITO W CAD, 03/02/2017. INDICATIONS: Screening mammography Calculator Name NCI Breast Cancer Risk Assessment Tool 5 Year Breast Cancer Risk 4.20% Lifetime Breast Cancer Risk 6.40% Personal Breast Cancer No Personal Ovarian Cancer No Treatments None Family Cancers Mother with breast cancer at age 70. LOCATION: [facility] BREAST COMPOSITION: Heterogeneously dense,which may obscure small masses. FINDINGS: DIAGNOSTIC CATEGORY 2--BENIGN FINDING: RIGHT BREAST: No significant suspicious finding. Scattered benign-appearing nodules are present. Scattered benign-appearing calcifications are present. No significant change has occurred. LEFT BREAST: No significant suspicious finding. Scattered benign-appearing nodules are present. Scattered benign-appearing calcifications are present. No significant change has occurred. RECOMMENDATIONS: ROUTINE MAMMOGRAM AND CLINICAL EVALUATION IN 12 MONTHS. PLEASE NOTE: A NORMAL MAMMOGRAM DOES NOT EXCLUDE THE POSSIBILITY OF BREAST CANCER. A CLINICALLY SUSPICIOUS PALPABLE LUMP SHOULD BE BIOPSIED. Dictated by: Eric Berry M.D. on 10/30/2021 at 15:28 Approved by: Eric Berry M.D. on 10/30/2021 at 15:42 Normal [facility] XR DEXA BONE DENSITYon 10-29 XR DEXA BONE DENSITY EXAMINATION: XR DEX A BONE DENSITY, 10/29/2021 12:56 PM EDT HISTORY: Screening for osteoporosis COMPARISON: DEXA bone densitometry 09/20/2019 TECHNIQUE: Dual-energy X-ray absorptiometry (DEXA) bone density study performed for the axial skeleton. FINDINGS: SPINE ANALYSIS: Average bone mineral density is 1.265 g/cm2. T-score (standard deviation relative to young adult mean): 0.7 . +8.7% change since prior study. HIP ANALYSIS: Lowest bone mineral density is within the right femoral trochanter, 0.612 g/cm2. T-score (standard deviation relative to young adult mean): -2.1 . +1.7% change since prior study. IMPRESSION: [employer] Organization Classification: Osteopenia - Moderate Fracture Risk Electronically authenticated by: ERIC BERRY Date: 2021-10-29 17:24 Normal [facility] COVID-19 Positive/Negativeon 08-06-2020 SARS-CoV-2 (COVID-19) N gene NAKUL+probe Ql (Resp) Negative Negative [facility] Comment on above: Testing for SARS-CoV -2 by RT-PCRThis test was developed and its performance characteristics determined by [employer] and validated at the [facility]. This test has not been FDA cleared or approved. This test has been authorized by FDA under an Emergency Use Authorization (EUA). This test has been validated in accordance with the FDA's Guidance Document (Policy for Diagnostics Testing in Laboratories Certified to Perform High Complexity Testing under CLIA prior to Emergency Use Authorization for Coronavirus Disease-2019 during the Public Health Emergency) issued on July 06, 2019. This test is only authorized for the duration of time the declaration that circumstances exist justifying the authorization of the emergency use of in vitro diagnostic tests for detection of SARS-CoV-2 virus and/or diagnosis of COVID-19 infection under section 564(b)(1) of the Act, 21 U.S.C. 360bbb-3(b)(1), unless the authorization is terminated or revoked sooner. Laboratory - Microbiology an d Antimicrobial susceptibilityon 08-06-2020 SARS-CoV-2 (COVID-19) RNA NAKUL+probe Ql (Unsp spec) N/A [facility] Vital Signs Date Time Vital Sign Value Performing Clinician Faci lity 09-25-2022 10:35-0400 Diastolic blood pressure 82 mm[Hg] PHYSICIAN NO [facility] 09-25-2022 10:35-0400 Heart rate 95 /min PHYSICIAN NO [facility] 09-25-2022 10:35-0400 Respiratory rate 16 /min PHYSICIAN NO [facility] 09-25-2022 10:35-0400 SaO2% (BldA) [Mass fraction] 99 % PHYSICIAN NO [facility] 09-25-2022 10:35-0400 Systolic blood pressure 161 mm[Hg] PHYSICIAN NO [facility] 09-25-2022 07:39-0400 Body height 165.1 cm PHYSICIAN NO [facility] 09-25-2022 07:39-0400 Body weight 63.5 kg PHYSICIAN NO [facility] 08-07-2022 11:06-0400 Blood Pressure Location Ivana Lue [facility] 08-07-2022 11:06-0400 Diastolic blood pressure 64 mm[Hg] Ivana Lue [facility] 08-07-2022 11:06-0400 Heart rate 67 /min Ivana Lue [facility] 08-07-2022 11:06-0400 Systolic blood pressure 132 mm[Hg] Ivana Lue [facility] 07-15-2022 10:25-0400 Blood Pressure Location Ivana Lue [facility] 07-15-2022 10:25-0400 Diastolic blood pressure 67 mm[Hg] Ivana Lue [facility] 07-15-2022 10:25-0400 Heart rate 108 /min Ivana Lue [facility] 07-15-2022 10:25-0400 Systolic blood pressure 144 mm[Hg] Ivana Lue [facility] 07-01-2022 08:21-0400 Blood Pressure Location Ivana Lue [facility] 07-01-2022 08:21-0400 Diastolic blood pressure 61 mm[Hg] Ivana Lue [facility] 07-01-2022 08:21-0400 Heart rate 90 /min Ivana Lue [facility] 07-01-2022 08:21-0400 Systolic blood pressure 118 mm[Hg] Ivana Lue [facility] 06-03-2022 07:53-0500 Diastolic blood pressure 70 mm[Hg] II Kilo Chavez Work Phone: [facility] 06-03-2022 07:53-0500 Heart rate 89 /min II Kilo Chavez Work Phone: [facility] 06-03-2022 07:53-0500 Respiratory rate 16 /min II Kilo Chavez Work Phone: [facility] 06-03-2022 07:53-0500 SaO2% (BldA) [Mass fraction] 96 % II Kilo Chavez Work Phone: [facility] 06-03-2022 07:53-0500 Systolic blood pressure 155 mm[Hg] II Kilo Chavez Work Phone: [facility] 06-02-2022 17:00-0500 Body height 162.56 cm II Kilo Chavez Work Phone: [facility] 06-02-2022 17:00-0500 Body temperature 97.6 [degF] II Kilo Chavez Work Phone: [facility] 06-02-2022 17:00-0500 Body weight 72.57 kg II Kilo Chavez Work Phone: [facility] Encounters Encounter Date Encounter Type Care Provider Facility Start: 07-06-2023 ambulatory SEBASTIÁN E LANDY [facility] Start: 06-08-2023 End: 06-09-2023 ambulatory SEBASTIÁN E LANDY Facility:[facility] Start: 05-11-2023 End: 05-12-2023 ambulatory SEBASTIÁN E LANDY [facility] Start: 04-13-2023 End: 04-14-2023 ambulatory SEBASTIÁN E LANDY Facility:[facility] Start: 04-13-2023 End: 04-13-2023 Patient encounter procedure SEBASTIÁN E LANDY [facility] Start: 04-08-2023 End: 04-08-2023 ambulatory JEFF Sheets MEDELLIN Not Available Start: 03-31-2023 End: 03-31-2023 ambulatory FOZIA CHYNA Not Available Start: 03-16-2023 End: 03-17-2023 ambulatory SEBASTIÁN E LANDY Facility:[facility] Start: 03-16-2023 End: 03-16-2023 Patient encounter procedure SEBASTIÁN E LANDY [facility] [place] Start: 02-16-2023 End: 02-17-2023 ambulatory SEBASTIÁN E LANDY [facility] Start: 01-19-2023 End: 01-20-2023 ambulatory SEBASTIÁN E LANDY Facility:[facility] Start: 12-22-2022 End: 12-23-2022 ambulatory Ivana Hernandez Facility:[facility] Start: 12-22-2022 End: 12-22-2022 Patient encounter procedure Ivana M. Lue [facility] Start: 11-25-2022 End: 11-26-2022 ambulatory Ivana M. Lue Facility:[facility] Start: 11-25-2022 End: 11-25-2022 Patient encounter procedure Ivana M. Lue [facility] [place] Start: 11-10-2022 ambulatory Jose Manuel Lorenzoi ty:[facility] Start: 10-26-2022 End: 10-27-2022 ambulatory Ivana M. Lue Facility:[facility] Start: 10-15-2022 ambulatory Ivana M. Lue Facility:[facility] [place] Start: 10-12-2022 End: 10-13-2022 ambulatory Ivana M. Lue Facility:[facility] Start: 10-12-2022 End: 10-12-2022 Patient encounter procedure Ivana M. Lue [facility] Start: 09-30-2022 End: 10-01-2022 ambulatory Ivana M. Lue Facility:[facility] Start: 09-30-2022 End: 09-30-2022 Patient encounter procedure Ivana M. Lue [facility] [place] Start: 09-30-2022 End: 10-01-2022 ambulatory Ivana M. Lue Facility:[facility] Start: 09-30-2022 End: 09-30-2022 Patient encounter [facility] Start: 09-25-2022 End: 09-25-2022 ambulatory Pipe Sanchez Facility:[facility] Start: 09-25-2022 End: 09-25-2022 Admission to same day surgery center PHYSICIAN NO [facility] Work Phone: Start: 09-25-2022 End: 09-25-2022 ambulatory PHYSICIAN NO [facility] Work Phone: Start: 09-23-2022 ambulatory Ivana Hernandez Facility:[facility] [place] Start: 09-01-2022 End: 09-02-2022 ambulatory [employer] FOZIATremaine TOBAR Facility:[facility] Start: 08-26-2022 ambulatory SEBASTIÁN E LANDY Facili ty:[facility] [place] Start: 08-26-2022 End: 08-27-2022 ambulatory SEBASTIÁN E LANDY Facility:[facility] Start: 08-07-2022 End: 08-08-2022 ambulatory Ivana Hernandez Facility:[facility] [place] Start: 08-07-2022 End: 08-07-2022 Patient encounter procedure Ivana Hernandez [facility] Start: 07-30-2022 End: 07-30-2022 ambulatory Johann Dolan Facility:[facility] Start: 07-30-2022 End: 07-30-2022 ambulatory PHYSICIAN NO [facility] Work Phone: Start: 07-30-2022 End: 07-30-2022 Patient encounter procedure PHYSICIAN NO [facility] [address] Work Phone: Start: 07-23-2022 End: 07-23-2022 ambulatory LODGE SALES ASSOCIATE FOZIA TOBAR Facility:[facility] Start: 07-15-2022 End: 07-16-2022 ambulatory Ivana Hernandez Facility:[facility] [place] Start: 07-15-2022 End: 07-15-2022 Patient encounter procedure Ivana Hernandez [facility] [place] Start: 07-14-2022 ambulatory SEBASTIÁN E LANDY Facili ty:[facility] [place] Start: 07-01-2022 End: 07-02-2022 ambulatory SEBASTIÁN BILL Facility:[facility] [place] Start: 07-01-2022 End: 07-01-2022 Patient encounter procedure SEBASTIÁN BILL [facility] Start: 07-01-2022 End: 07-02-2022 ambulatory Ivana Hernandez Facility:[facility] [place] Start: 07-01-2022 End: 07-01-2022 Patient encounter procedure Ivana Hernandez [facility] Start: 06-19-2022 End: 06-19-2022 ambulatory JIM LANDA MOISESKurtTANYAYaquelin Facility: Start: 06-17-2022 End: 06-18-2022 ambulatory CARY GUTIERREZ [facility] Start: 06-17-2022 End: 06-17-2022 [facility] Start: 06-15-2022 End: 06-16-2022 ambulatory CARY GUTIERREZ [facility] Start: 06-15-2022 End: 06-15-2022 Subsequent [facility] Start: 06-12-2022 End: 06-13-2022 ambulatory CARY GUTIERREZ [facility] Start: 06-12-2022 End: 06-12-2022 Subsequent [facility] Start: 06-10-2022 End: 06-11-2022 ambulatory SG TOBAR [facility] Start: 06-10-2022 End: 06-10-2022 Subsequent hospital visit by physician [facility] Start: 06-09-2022 End: 06-10-2022 ambulatory CARY GUTIERREZ [facility] Start: 06-09-2022 End: 06-09-2022 Subsequent [facility] Start: 06-07-2022 End: 06-08-2022 ambulatory CARY GUTIERREZ [facility] Start: 06-07-2022 End: 06-07-2022 Subsequent hospital visit by physician MTHZ [facility] Start: 06-02-2022 End: 06-03-2022 Emergency department patient visit Oz Beckford Jr Facility:[facility] Start: 06-02-2022 End: 06-03-2022 Emergency department patient visit II Kilo Chavez Work Phone: [facility] Work Phone: Start: 05-20-2022 End: 05-20-2022 ambulatory LODGE SALES ASSOCIATE FOZIA AICHHOLZ Facility:[facility] Start: 05-05-2022 End: 05-05-2022 ambulatory Johann Dolan Facility:[facility] Start: 05-05-2022 End: 05-05-2022 ambulatory II Kilo Chavez Work Phone: [facility] Work Phone: Start: 05-05-2022 End: 05-05-2022 Patient encounter procedure II Kilo Chavez Work Phone: [facility] [address] Work Phone: Start: 05-04-2022 End: 05-05-2022 ambulatory LODGE SALES ASSOCIATE FOZIA AICHHOLZ Facility:[facility] Start: 02-25-2022 End: 02-26-2022 ambulatory LODGE SALES ASSOCIATE FOZIA AICHHOLZ Facility:[facility] Start: 02-11-2022 End: 02-11-2022 ambulatory LODGE SALES ASSOCIATE FOZIA AICHHOLZ Facility:[facility] Start: 01-30-2022 End: 01-31-2022 ambulatory LODGE SALES ASSOCIATE FOZIA AICHHOLZ Facility:[facility] Start: 01-26-2022 End: 01-27-2022 ambulatory LODGE SALES ASSOCIATE FOZIA AICHHOLZ Facility:[facility] Start: 01-16-2022 End: 01-17-2022 ambulatory LODGE SALES ASSOCIATE FOZIA AICHHOLZ Facility:[facility] Start: 01-02-2022 ambulatory Silvia (Pcna)( Hist) [facility] Start: 12-31-2021 End: 12-31-2021 ambulatory LODGE SALES ASSOCIATE FOZIA AICHHOLZ Facility:[facility] Start: 12-22-2021 End: 12-23-2021 ambulatory LODGE SALES ASSOCIATE FOZIA AICHHOLZ Facility:[facility] Start: 12-04-2021 End: 12-05-2021 ambulatory JIM TOBAR Facility:[facility] Start: 10-29-2021 End: 10-30-[address] KILO CHAVEZ Facility:[facility] Start: 08-06-2020 End: 08-06-2020 Patient encounter procedure Pipe Sanchez Work Phone: -Pre-Surgical Testing Procedures Date Procedure Procedure Detail Performing Clinician Start: 10-26-2022 Urodynamic studies Ivana Georgese Start: 09-25-2022 Esophagogastroduodenoscopy PHYSICIAN NO [facility] Start: 06-15-2022 Sodium serum plasma or whole blood Jose G Gutierrez CREATIVE DEVELOPER - LODGE SALES ASSOCIATE Work Phone: Start: 06-12-2022 Sodium serum plasma or whole blood Jose G Gutierrez CREATIVE DEVELOPER - LODGE SALES ASSOCIATE Work Phone: Start: 06-10-2022 Assay of thyroid stimulating hormone tsh Sg Tobar MD Work Phone: Start: 06-10-2022 Lipid panel Sg Tobar MD Work Phone: Start: 06-09-2022 Comprehensive metabolic panel Cary richard CREATIVE DEVELOPER - LODGE SALES ASSOCIATE Work Phone: Start: 06-07-2022 Urinalysis microscopic only Cary julio CREATIVE DEVELOPER - LODGE SALES ASSOCIATE Work Phone: Start: 06-07-2022 Urnls dip stick/tablet rgnt auto w/o microscopy Cary Gutierrez CREATIVE DEVELOPER - LODGE SALES ASSOCIATE Work Phone: Start: 06-02-2022 SARS Antigen (LFIA) II Kilo Chavez Work Phone: Start: 05-13-2012 Cystourethroscopy with dilation of urethral stricture Ivana Georgese Appendectomy Ivana Lue Arthroplasty of right shoulder Ivana Lue Bilateral cataracts (disorder) Ivana Lue Colonoscopy Ivana Lue Hysterectomy Ivana Lue Ligation of fallopian tube K ashley Hernandez Plan of Treatment Date Care Activity Detail Author Start: 09-25-2022 [facility] Start: 05-05-2022 [facility] Start: 12-04-2021 Influenza vaccination INFLUENZA (#1) [facility] Start: 11-03-2021 Influenza vaccination Flu vaccine (# 1) [facility] Start: 04-05-2021 ADVANCE DIRECTIVE DISCUSSION ADVANCE DIRECTIVE DISCUSSION [facility] Start: 04-05-2021 DEPRESSION ASSESSMENT DEPRESSION ASS ESSMENT [facility] Start: 2006 BONE DENSITY BONE DENSITY [facility] Start: 2006 PNEUMOCOCCAL: 65+ (1 - PCV) PNEUMOCOCCAL: 65+ (1 - PCV) [facility] Start: 1991 SHINGRIX VACCINE (1 of 2) SHINGRIX VACCINE (1 of 2) [facility] Start: 1986 DIABETES SCREEN DIABETES SCREEN [facility] Start: 1960 DTaP/Tdap/Td vaccine (1 - Tdap) DTaP/Tdap/Td vaccine (1 - Tdap) [facility] Start: 1960 Urine microalbumin profile DTAP,TDAP,TD (1 - Tdap) [facility] Start: 1941 COVID-19 VACCINE (#1) COVID-19 VACCI NE (#1) [facility] Aldolase measurement [facility] Angiotensin converti ng enzyme [Enzymatic activity/volume] in Serum or Plasma [facility] C reactive protein [Mass/volume] in Serum or Plasma [facility] End: 06-07-2022 Culture, Urine [facility] Work Phone: Comment on above: Once for 1 Occurrenc es starting 06/07/2022 until 06/07/2022 Homogenous nuclear A b pattern [Titer] in Serum [facility] Nuclear Ab [Titer] i n Serum [facility] Parathyrin related protein [Moles/volume] in Serum or Plasma [facility] Patient Education Esophageal Dil ation Hiatal Hernia (DC) [facility] Work Phone: Patient referral [facility] Work Phone: Immunizations Immunization Date Immunization Notes Care Provider Rosio paris 04-03-2022 SARS-CoV-2 (COVID-19 ) [id number] Ivana Lue [facility] 12-22-2021 influenza virus vaccine, unspecified formulation Ivana Lue [facility] 12-17-2021 influenza virus vaccine, unspecified formulation Ivana Lue [facility] 08-07-2021 SARS-CoV-2 mRNA (thgxofczuai-tauy-sbxby se) vaccine Ivana Lue [facility] 01-10-2021 SARS-CoV-2 (COVID-19 ) mRNA BNT-162b2 vax Ivana Lue [facility] 12-18-2020 influenza virus vaccine, unspecified formulation Ivana Lue [facility] 05-20-2020 COVID-19 mRNA, Comirnaty (Pfizer) II Kilo Chavez Work Phone: [facility] Comment on above: Result Comment: 2022: [id number] 04-29-2020 COVID-19 mRNA, Comirnaty (Pfizer) II Kilo Chavez Work Phone: [facility] Comment on above: Result Comment: 2022: [id number] 12-28-2019 influenza virus vaccine, unspecified formulation Ivana Lue [facility] 12-28-2017 influenza virus vaccine, unspecified formulation Ivana Lue [facility] 01-07-2017 influenza virus vaccine, unspecified formulation Ivana Lue [facility] 12-12-2015 influenza virus vaccine, unspecified formulation Ivana Lue [facility] 12-07-2014 influenza virus vaccine, unspecified formulation Ivana Lue [facility] 12-07-2014 pneumococcal conjuga te vaccine, 13 valent Ivana Lue [facility] 01-20-2012 influenza, whole Ivana Lue [facility] Payers Date Payer Category Payer Self-pay [id number] 2019 Unknown MMO MMO MEDICARE SUPPLEMENT [id number] 2019-Present [phone] [address] [place] [address] Indemnity [id number] 2018 Unknown [id number] 2006 Medicare MEDICARE MEDICAR E A AND B [id number] 2006-Present [phone] [address] [address] [place] [address] Medicare [id number] 1959 Medicare [id number] 1959 Unknown [id number] [facility] Unknown [id number] 2.16.840.1.194327.3.579.2.173 1941 Unknown [id number] 2.16.840.1.547623.3.579.2.173 1941 Unknown [id number] 2.16.840.1.470810.3.579.2.173 1941 Unknown [id number] 2.16.840.1.654891.3.579.2.593 1941 Unknown [id number] 2.16.840.1.171354.3.579.2.593 1941 Unknown [id number] 2.16.840.1.524301.3.579.2.593 1941 Unknown [id number] 2.16.840.1.700680.3.579.2.593 1941 Unknown [id number] 2.16.840.1.785270.3.579.2.593 1941 Unknown [id number] 2.16.840.1.163033.3.579.2.593 1941 Unknown [id number] 2.16.840.1.129294.3.579.2.593 1941 Unknown [id number] 2.16.840.1.986825.3.579.2.593 1941 Unknown [id number] 2.16.840.1.398652.3.579.2.593 1941 Unknown [id number] 2.16.840.1.101227.3.579.2.593 1941 Unknown [id number] 2.16.840.1.752525.3.579.2.593 1941 Unknown [id number] 2.16.840.1.191232.3.579.2.593 1941 Unknown [id number] 2.16.840.1.131866.3.579.2.593 1941 Unknown [id number] 2.16.840.1.137163.3.579.2.593 1941 Unknown [id number] 2.16.840.1.939557.3.579.2.593 1941 Unknown [id number] 2.16.840.1.318302.3.579.2.593 1941 Unknown [id number] 2.16.840.1.137535.3.579.2.1259 1941 Unknown [id number] 2.16.840.1.297017.3.579.2.1259 1941 Unknown [id number] 2.16.840.1.962749.3.579.2.727 1941 Unknown [id number] 2.16.840.1.413572.3.579.2.727 1941 Unknown [id number] 2.16.840.1.955866.3.579.2.727 1941 Unknown [id number] 2.16.840.1.589606.3.579.2.727 1941 Unknown [id number] 2.16.840.1.658914.3.579.2.727 1941 Unknown [id number] 2.16.840.1.363127.3.579.2.727 1941 Unknown [id number] 2.16.840.1.271497.3.579.2.727 1941 Unknown [id number] 2.16.840.1.899881.3.579.2.727 1941 Unknown [id number] 2.16.840.1.349649.3.579.2.727 1941 Unknown [id number] 2.16.840.1.906055.3.579.2.727 1941 Unknown [id number] 2.16.840.1.959007.3.579.2.727 1941 Unknown [id number] 2.16.840.1.744874.3.579.2.727 1941 Unknown [id number] 2.16.840.1.711668.3.579.2.72 1941 Unknown [id number] 2.16.840.1.050144.3.579.2.72 1941 Unknown [id number] 2.16.840.1.501504.3.579.2.72 1941 Unknown [id number] 2.16.840.1.037044.3.579.2.72 1941 Unknown [id number] 2.16.840.1.342150.3.579.2. 1941 Unknown [id number] 2.16.840.1.473645.3.579.2.727 1941 Unknown [id number] 2.16.840.1.411803.3.579.2.72 1941 Unknown [id number] 2.16.840.1.867264.3.579.2.727 1941 Unknown [id number] 2.16.840.1.452228.3.579.2.72 1941 Unknown [id number] 2.16.840.1.391917.3.579.2.727 1941 Unknown [id number] 2.16.840.1.569650.3.579.2.727 Unknown [id number] 2.16.840.1.859392.3.579.2.531 Unknown [id number] 2.16.840.1.877220.3.579.2.531 Unknown [id number] 2.16.840.1.908917.3.579.2.531 Unknown [id number] 2.16.840.1.839359.3.579.2.531 Social History Date Type Detail Facility Tobacco smoking status TNIS Unknown if ever smoked [facility] Start: 1940 Sex Assigned At Female F [facility] Start: 07-29-2018 End: 07-15-2022 Tobacco smoking status NHIS Ex-smoker [facility] History of tobacco use Current smoker [facility] Start: 07-29-2018 Tobacco use and exposure Smokeless tobacco non-user [facility] Start: 06-13-2020 Alcohol intake Current drinke r of alcohol (finding) [facility] Start: 07-29-2018 History SDOH Alcohol Comment thisks may have a drink about 4-5 times per week [facility] Start: 1940 Sex Assigned At Not on file [facility] Start: 11-28-2020 Tobacco smoking status NHIS Never smoked tobacco (finding) [facility] Tobacco smoking status TNIS Tobacco smoking consumption unknown [employer] Phone: Tobacco smoking status Never [facility] Sex Assigned At Female [facility] Goals Date Patient Goal Desired Activity /State Functional Status Date Assessment Result Facility 11-25-2022 Functional Status N/A [facility] 08-07-2022 Functional Status N/A [facility] 07-15-2022 Functional Status N/A [facility] 07-01-2022 Functional Status N/A [facility] Clinical Notes 01-02-2022 to 11-25-2022 Silvia Kumar 01/02/2022 9:32 AM EDT Note Date & Type Note Facility 11-25-2022 Hospital Discharg e instructions Patient Education 11/25/2022 10:04:46 Urinary Tract Infection, Adult, Ykvx-ua-Ofcp Urinary Tract Infection, Adult A urinary tract infection (UTI) is an infection of any part of the urinary tract. The urinary tract includes: The kidneys. The ureters. The bladder. The urethra. These organs make, store, and get rid of pee (urine) in the body. What are the causes? This infection is caused by germs (bacteria) in your genital area. These germs grow and cause swelling (inflammation) of your urinary tract. What increases the risk? The following factors may make you more likely to develop this condition: Using a small, thin tube (catheter) to drain pee. Not being able to control when you pee or poop (incontinence). Being female. If you are female, these things can increase the risk: ?Using these methods to prevent : ?A medicine that kills sperm (spermicide). ?A device that blocks sperm (diaphragm). ?Having low levels of a female hormone (estrogen). ?Being . You are more likely to develop this condition if: You have genes that add to your risk. You are sexually active. You take antibiotic medicines. You have trouble peeing because of: ?A prostate that is bigger than normal, if you are male. ?A blockage in the part of your body that drains pee from the bladder. ?A kidney stone. ?A nerve condition that affects your bladder. ?Not getting enough to drink. ?Not peeing often enough. You have other conditions, such as: ?Diabetes. ?A weak disease-fighting system (immune system). ?Sickle cell disease. ?Gout. ?Injury of the spine. What are the signs or symptoms? Symptoms of this condition include: Needing to pee right away. Peeing small amounts often. Pain or burning when peeing. Blood in the pee. Pee that smells bad or not like normal. Trouble peeing. Pee that is cloudy. Fluid coming from the vagina, if you are female. Pain in the belly or lower back. Other symptoms include: Vomiting. Not feeling hungry. Feeling mixed up (confused). This may be the first symptom in older adults. Being tired and grouchy (irritable). A fever. Watery poop (diarrhea). How is this treated? Taking antibiotic medicine. Taking other medicines. Drinking enough water. In some cases, you may need to see a specialist. Follow these instructions at home: Medicines Take ychx-zxr-uqzorbq and prescription medicines only as told by your doctor. If you were prescribed an antibiotic medicine, take it as told by your doctor. Do not stop taking it even if you start to feel better. General instructions Make sure you: ?Pee until your bladder is empty. ?Do not hold pee for a long time. ?Empty your bladder after sex. ?Wipe from front to back after peeing or pooping if you are a female. Use each tissue one time when you wipe. Drink enough fluid to keep your pee pale yellow. Keep all follow-up visits. Contact a doctor if: You do not get better after 1 2 days. Your symptoms go away and then come back. Get help right away if: You have very bad back pain. You have very bad pain in your lower belly. You have a fever. You have chills. You feeling like you will vomit or you vomit. Summary A urinary tract infection (UTI) is an infection of any part of the urinary tract. This condition is caused by germs in your genital area. There are many risk factors for a UTI. Treatment includes antibiotic medicines. Drink enough fluid to keep your pee pale yellow. This information is not intended to replace advice given to you by your health care provider. Make sure you discuss any questions you have with your health care provider. Document Revised: 11/01/2020 Document Reviewed: 11/01/2020 [employer] Patient Education 2022 [employer]. Follow Up Care 11/10/2022 14:10:04 With:David WELLS, JACKY Barrera, URO Address: When:Within 1 Month(s) Comments:w/ Cath change [facility] 10-26-2022 Note [id number]:[id number] [facility] 09-25-2022 Procedure note [facility] 08-07-2022 Hospital Discharg e instructions Patient Education 08/07/2022 11:30:02 Neurogenic Bladder Neurogenic Bladder Neurogenic bladder is a bladder control disorder. It is usually caused by problems with the nerves that control the bladder. The brain sends signals through the spinal cord to the muscles in the bladder that start and stop urine flow. With neurogenic bladder, the nerves and muscles do not work together the way they should. This condition may make the bladder overactive, meaning you have trouble holding urine. In other cases, it may make the bladder underactive. This means that you have trouble passing urine. What are the causes? This condition may be caused by nerve damage or a condition that disrupts the signals from your brain to your bladder. Many things can cause these nerve problems, including: A disease that affects the nervous system, such as: ?Alzheimer's disease. ?Cerebral palsy. ?Multiple sclerosis. ?Diabetes. ?Parkinson's disease. Damage to your brain or spinal cord. This can come from: ?Trauma. ?Tumors. ?Infection. ?Surgery. ?Alcohol abuse. ?Stroke. ?A congenital disability that affects the spinal cord. What increases the risk? You are more likely to develop this condition if you have nerve damage or a nerve disorder. What are the signs or symptoms? Signs and symptoms of this condition include: Leaking or gushing urine (incontinence). A sudden, strong urge to pass urine (urgency). Frequent urination during the day and night. Being unable to empty your bladder completely (urinary retention). Frequent urinary tract infections. How is this diagnosed? This condition may be diagnosed based on: Your symptoms and medical history. A physical exam. Records from a bladder diary. You may be asked to keep a record or log of your bladder symptoms and the times that you urinate. You may also have tests, such as: A urine test to check for infection. A bladder scan after you urinate to see how much urine is left in your bladder. Tests to measure your urine flow and see how well the flow is controlled (urodynamic tests). A procedure that uses a small device with a camera to look through your urethra into your bladder (cystoscopy). A health care provider who specializes in the urinary tract (urologist) may do this test. Imaging tests of your brain or spine, such as MRI or CT scan. How is this treated? Treatment for this condition depends on the cause and the symptoms that you have. Work closely with your health care provider to find the treatments that will improve your quality of life. Treatment options include: Learning ways to control when you urinate, such as: ?Urinating at scheduled times. ?Training yourself to delay urination. ?Exercises to strengthen the muscles that control urine flow (Kegel exercises). ?Avoiding foods or drinks that make your symptoms worse. Taking medicines to: ?Stimulate an underactive bladder. ?Relax an overactive bladder. ?Treat a urinary tract infection. Learning how to use a thin tube (catheter) to empty your bladder. A catheter is a hollow tube that you pass through your urethra. Procedures to stimulate the nerves that control your bladder. Surgery, if other treatments do not help. Follow these instructions at home: Lifestyle Keep a bladder diary to find out which foods, liquids, or activities make your symptoms worse. Use your bladder diary to schedule bathroom trips. If you are away from home, plan to be near a bathroom when your schedule says you will need one. Limit beverages that stimulate urination. These include soda, coffee, and tea. After urinating, wait a few minutes and try again. Make sure you urinate just before you leave the house and just before you go to bed. Kegel exercises Do Kegel exercises to strengthen the muscles that control the passing of urine. These muscles are the ones you use to try to hold urine when you need to urinate. To do Kegel exercises: 1.Squeeze your pelvic floor muscles tight, as if you are trying to stop the flow of urine. You should feel a tight lift in your rectal area. If you are female, you should also feel a tightness in your vaginal area. Keep your stomach, buttocks, and legs relaxed. 2.Hold the muscles tight for 5 10 seconds. 3.Relax your muscles for the same amount of time. 4.Repeat 10 times. Repeat this exercise 3 times a day or as many times as told by your health care provider. General instructions Take ayhs-ehr-scdwksv and prescription medicines only as told by your health care provider. Keep all follow-up visits. This is important. Contact a health care provider if: You are having a hard time controlling your symptoms. Your symptoms are getting worse. You have signs of a urinary tract infection. These may include: ?A burning feeling when you urinate. ?Fever or chills. ?Cloudy or bloody urine. Get help right away if: You cannot pass urine. Summary Neurogenic bladder is a bladder control disorder caused by problems with the nerves that control the bladder. This condition may make the bladder overactive or underactive. This condition may be caused by nerve damage or a condition that disrupts the signals from your brain to your bladder. Treatment depends on the cause of your neurogenic bladder and the symptoms that you have. Work closely with your health care provider to find the treatments that will improve your quality of life. This information is not intended to replace advice given to you by your health care provider. Make sure you discuss any questions you have with your health care provider. Document Revised: 12/05/2020 Document Reviewed: 12/05/2020 Elsevier Patient Education 2022 [employer]. Follow Up Care 07/15/2022 11:57:20 With:David WELLS, JACKY Barrera, URO Address: When: Unknown [facility] 07-15-2022 Hospital Discharg e instructions Patient Education 07/15/2022 11:29:03 Neurogenic Bladder Neurogenic Bladder Neurogenic bladder is a bladder control disorder. It is usually caused by problems with the nerves that control the bladder. Your brain sends signals through your spinal cord to the muscles in your bladder that start and stop urine flow. If you have neurogenic bladder, the nerves and muscles do not work together the way they should. This condition may make the bladder overactive, meaning you have trouble holding urine. In other cases, it may make the bladder underactive, meaning you have trouble passing urine. What are the causes? This condition may be caused by any kind of nerve damage or condition that disrupts the signals from your brain to your bladder. Many things can cause these nerve problems, including: A disease that affects the nervous system, such as: ?Alzheimer disease. ?Cerebral palsy. ?Multiple sclerosis. ?Diabetes. ?Parkinson disease. Damage to your brain or spinal cord. This can come from: ?Trauma. ?Tumors. ?Infection. ?Surgery. ?Alcohol abuse. ?Stroke. ?A congenital disability that affects the spinal cord. What increases the risk? You are more likely to develop this condition if you have nerve damage or a nerve disorder. What are the signs or symptoms? Signs and symptoms of this condition include: Leaking or gushing urine (incontinence). A sudden, strong urge to pass urine (urgency). Frequent urination during the day and night. Being unable to empty your bladder completely (urinary retention). Frequent urinary tract infections. How is this diagnosed? This condition may be diagnosed based on: Your symptoms and medical history. A physical exam. Results of a bladder diary. You may be asked to keep a record of your bladder symptoms and the times that you urinate. You may also have tests, such as: A urine test to check for infection. A bladder scan after you urinate to see how much urine is left in your bladder. Tests to measure your urine flow and see how well the flow is controlled (urodynamic tests). A procedure that uses a small device with a camera to look through your urethra into your bladder (cystoscopy). A health care provider who specializes in the urinary tract (urologist) may do this test. Imaging tests of your brain or spine, such as MRI or CT. How is this treated? Treatment for this condition depends on the cause and the symptoms that you have. Work closely with your health care provider to find the treatments that will improve your quality of life. Treatment options include: Learning ways to control when you urinate, such as: ?Urinating at scheduled times. ?Training yourself to delay urination. ?Doing exercises to strengthen the muscles that control urine flow (Kegel exercises). ?Avoiding foods or drinks that make your symptoms worse. Taking medicines to: ?Stimulate an underactive bladder. ?Relax an overactive bladder. ?Treat a urinary tract infection. Learning how to use a thin tube (catheter) to empty your bladder. A catheter is a hollow tube that you pass through your urethra. Procedures to stimulate the nerves that control your bladder. Surgery, if other treatments do not help. Follow these instructions at home: Lifestyle Keep a bladder diary to find out which foods, liquids, or activities make your symptoms worse. Use your bladder diary to schedule bathroom trips. If you are away from home, plan to be near a bathroom when your schedule says you will need one. Limit your drinking of beverages that stimulate urination. These include soda, coffee, and tea. After urinating, wait a few minutes and try again (double voiding). Make sure you urinate just before you leave the house and just before you go to bed. Kegel exercises Do Kegel exercises to strengthen the muscles that control the passing of urine. These muscles are the ones you use to try to hold urine when you need to urinate. To do Kegel exercises: 1.Squeeze your pelvic floor muscles tight, as if you are trying to stop the flow of urine. You should feel a tight lift in your rectal area. If you are female, you should also feel a tightness in your vaginal area. Keep your stomach, buttocks, and legs relaxed. 2.Hold the muscles tight for 5 10 seconds. 3.Relax your muscles for the same amount of time. 4.Repeat 10 times. Repeat this exercise 3 times a day or as many times as told by your health care provider. General instructions Take duhm-cek-akezsos and prescription medicines only as told by your health care provider. Keep all follow-up visits as told by your health care provider. This is important. Contact a health care provider if: You are having a hard time controlling your symptoms. Your symptoms are getting worse. You have signs of a urinary tract infection. These may include: ?A burning feeling when you urinate. ?Chills. ?Fever. Get help right away if: You cannot pass urine. Summary Neurogenic bladder is a bladder control disorder caused by problems with the nerves that control the bladder. This condition may make the bladder overactive or underactive. This condition may be caused by any kind of nerve damage or condition that disrupts the signals from your brain to your bladder. Treatment depends on the cause of your neurogenic bladder and the symptoms that you have. Work closely with your health care provider to find the treatments that will improve your quality of life. This information is not intended to replace advice given to you by your health care provider. Make sure you discuss any questions you have with your health care provider. Document Released: 10/03/2007 Document Revised: 04/04/2018 Document Reviewed: 04/04/2018 [employer] Patient Education 2020 [employer]. Follow Up Care 07/01/2022 13:04:43 With:David WELLS, JACKY Barrera, URO Address: [address], [place] [address]- [phone] When: Unknown [facility] 07-01-2022 Note HPI Staff Jamari is a 82 y.o. female new patient here for neurogenic bladder and urinary retention. Referral by Fozia Doll CNP. Pt presented to [facility] on 06/02/22 due to altered mental state. PVR at that time showed 600mL, catheter was inserted. Pt last seen in our office 06/14/[address] Chaney due to Urgency, Frequency & Urethral Stricture. S/P Cysto/UD 05/13/12. CT a/p w/ contrast done on 01/16/22. Most recent BMP 06/19/22. Multiple UA & C&S the past 6m, + C&S & 06/07/22 *Enterococcus Faecalis, UA 06/07/22 did show 2+ blood, NEG C&S 05/20/22, + C&S done 05/04/22 Citrobacter youngae & Enterococcus faecalis, NEG C&S done 02/11/22. Dysuria: denies Incomplete bladder emptying: Has Ribeiro Hematuria: denies Leaking: denies History of Present Illness Pt is here for Referral by [facility] due to Urinary Retention - external labs, cultures, CT scan and notes. Pt has seen Dr. Chaney in 2013 - reviewed prior office notes Reviewed CT Scan, Labs ICIQ-SF (0) Pt has no associated symptoms, no fever, no chills, no flank pain. Review of Systems PHQ Score Initial Depression Screen Score: 0 ROS - Provider Constitutional: denies weight loss, denies hot flashes. Eyes: denies eye problems. Gastrointestinal: denies nausea, denies vomiting. Cardiovascular: denies chest pain or angina. Integumentary: no dryness Musculoskeletal: denies musculoskeletal symptoms. ENMT: denies otolaryngeal symptoms. Respiratory: no shortness of breath. Heme/Lymph: denies easy bleeding tendency, denies easy bruising tendency. Psychiatric: no confusion, no anxiety. Genitourinary: Pt has Ribeiro Catheter but when catheter was placed she had over 600cc in bladder Physical Exam Vitals & Measurements HR: 90(Peripheral) BP: 118/61 HT: 65 in HT: 165 cm WT: 47 kg WT: 103.4 lb BMI: 17.26 General Appearance: alert , no acute distress, well nourished, well developed female. Ambulates with walker Head: normocephalic . Eyes: normal orbit and globe. ENMT: normal examination of external ears. Chest: symmetric chest rise, respirations non labored . Cardiovascular: regular rate and rhythm. Abdomen: soft, non distended, no tenderness Genitourinary: bladder nonpalpable, no flank tenderness. Ribeiro to leg bag, cyu Lymph Nodes: unremarkable palpation of the cervical area. Skin: warm, dry, no bruising. Psychiatric: cooperative, affect appropriate for age, normal judgement, euthymic mood. Procedure Pt's Ribeiro catheter has been removed in office today with no difficulties or complications. They have been advised to drink plenty of fluids. Pt has been instructed to call/return to office in the event that they are not able to void in the next 4-5 hours, or go to the ER after hours. Also advised Pt if they experience any severe bleeding, fever over 101 and /or shaking chills to go to the ER. Assessment/Plan 82 yo new pt from PCP for urinary retention. Will put Pt on waiting list for Urodynamics 1. Urinary retention (R33.9: Retention of urine, unspecified) Pt had Ribeiro placed at [facility] on 06/02/2022 Pt had Ribeiro changed on 06/11/2022 at [facility] Pt has not had a voiding trial. Pt has a tremor and does not feel like she can perform CIC Will remove Ribeiro catheter and she will return to office 3:00pm for PVR and possible Ribeiro placement Pt is encouraged to urinate every 2 hours and double void Pt is encouraged to keep her bowels moving to avoid constipation (issue for her) -UDS once available 2. Adrenal nodule (E27.8: Other specified disorders of adrenal gland) Left -Seen on CT Scan done on 06/02/2022 at [facility] Pt states that she has known about it for years, states it is stable. Declined metabolic workup at this time Cont to monitor 3. UTI (urinary tract infection) (N39.0: Urinary tract infection, site not specified) UTI (asymptomatic) 05/05/2022-[facility] 06/07/2022-[facility] - ribeiro exchange Denies lifelong hx of recurrent UTIs Likely bacteruria, secondary to incomplete emptying 4. DM (diabetes mellitus) (E11.9: Type 2 diabetes mellitus without complications) Pt is Type II This may contribute to her urinary retention. 5. 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 3+ trabeculations. Hematuria workup negative. 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 Pt unable to CIC due to tremor. Discussed SNM in the future Will schedule Urodynamics once available -Timed voiding Follow-up With When Contact Information Ivana Hernandez MD, URL, URO Additional Instructions: Patient Education Neurogenic Bladder IMarilee, personally scribed for Dr. Hernandez on 07/01/2022 09:21:54. . Documentation recorded by the Marilee loomis, accurate (more content not included)... [facility] Comment on above: Result Comment: Elec tronically Signed By: Ivana Hernandez MD\.br\Date and Time Signed: 07/01/22 09:45 EDT\.br\Electronically Co-Signed By: Marilee Langley\.br\Date and Time Co-Signed: 07/01/22 09:22 EDT 07-01-2022 Hospital Discharg e instructions Patient Education 07/01/2022 09:19:16 Neurogenic Bladder Neurogenic Bladder Neurogenic bladder is a bladder control disorder. It is usually caused by problems with the nerves that control the bladder. Your brain sends signals through your spinal cord to the muscles in your bladder that start and stop urine flow. If you have neurogenic bladder, the nerves and muscles do not work together the way they should. This condition may make the bladder overactive, meaning you have trouble holding urine. In other cases, it may make the bladder underactive, meaning you have trouble passing urine. What are the causes? This condition may be caused by any kind of nerve damage or condition that disrupts the signals from your brain to your bladder. Many things can cause these nerve problems, including: A disease that affects the nervous system, such as: ?Alzheimer disease. ?Cerebral palsy. ?Multiple sclerosis. ?Diabetes. ?Parkinson disease. Damage to your brain or spinal cord. This can come from: ?Trauma. ?Tumors. ?Infection. ?Surgery. ?Alcohol abuse. ?Stroke. ?A congenital disability that affects the spinal cord. What increases the risk? You are more likely to develop this condition if you have nerve damage or a nerve disorder. What are the signs or symptoms? Signs and symptoms of this condition include: Leaking or gushing urine (incontinence). A sudden, strong urge to pass urine (urgency). Frequent urination during the day and night. Being unable to empty your bladder completely (urinary retention). Frequent urinary tract infections. How is this diagnosed? This condition may be diagnosed based on: Your symptoms and medical history. A physical exam. Results of a bladder diary. You may be asked to keep a record of your bladder symptoms and the times that you urinate. You may also have tests, such as: A urine test to check for infection. A bladder scan after you urinate to see how much urine is left in your bladder. Tests to measure your urine flow and see how well the flow is controlled (urodynamic tests). A procedure that uses a small device with a camera to look through your urethra into your bladder (cystoscopy). A health care provider who specializes in the urinary tract (urologist) may do this test. Imaging tests of your brain or spine, such as MRI or CT. How is this treated? Treatment for this condition depends on the cause and the symptoms that you have. Work closely with your health care provider to find the treatments that will improve your quality of life. Treatment options include: Learning ways to control when you urinate, such as: ?Urinating at scheduled times. ?Training yourself to delay urination. ?Doing exercises to strengthen the muscles that control urine flow (Kegel exercises). ?Avoiding foods or drinks that make your symptoms worse. Taking medicines to: ?Stimulate an underactive bladder. ?Relax an overactive bladder. ?Treat a urinary tract infection. Learning how to use a thin tube (catheter) to empty your bladder. A catheter is a hollow tube that you pass through your urethra. Procedures to stimulate the nerves that control your bladder. Surgery, if other treatments do not help. Follow these instructions at home: Lifestyle Keep a bladder diary to find out which foods, liquids, or activities make your symptoms worse. Use your bladder diary to schedule bathroom trips. If you are away from home, plan to be near a bathroom when your schedule says you will need one. Limit your drinking of beverages that stimulate urination. These include soda, coffee, and tea. After urinating, wait a few minutes and try again (double voiding). Make sure you urinate just before you leave the house and just before you go to bed. Kegel exercises Do Kegel exercises to strengthen the muscles that control the passing of urine. These muscles are the ones you use to try to hold urine when you need to urinate. To do Kegel exercises: 1.Squeeze your pelvic floor muscles tight, as if you are trying to stop the flow of urine. You should feel a tight lift in your rectal area. If you are female, you should also feel a tightness in your vaginal area. Keep your stomach, buttocks, and legs relaxed. 2.Hold the muscles tight for 5 10 seconds. 3.Relax your muscles for the same amount of time. 4.Repeat 10 times. Repeat this exercise 3 times a day or as many times as told by your health care provider. General instructions Take wxmv-gqt-dvktxdw and prescription medicines only as told by your health care provider. Keep all follow-up visits as told by your health care provider. This is important. Contact a health care provider if: You are having a hard time controlling your symptoms. Your symptoms are getting worse. You have signs of a urinary tract infection. These may include: ?A burning feeling when you urinate. ?Chills. ?Fever. Get help right away if: You cannot pass urine. Summary Neurogenic bladder is a bladder control disorder caused by problems with the nerves that control the bladder. This condition may make the bladder overactive or underactive. This condition may be caused by any kind of nerve damage or condition that disrupts the signals from your brain to your bladder. Treatment depends on the cause of your neurogenic bladder and the symptoms that you have. Work closely with your health care provider to find the treatments that will improve your quality of life. This information is not intended to replace advice given to you by your health care provider. Make sure you discuss any questions you have with your health care provider. Document Released: 10/03/2007 Document Revised: 04/04/2018 Document Reviewed: 04/04/2018 [employer]fusion Patient Education 2019 [employer]. Follow Up Care 06/24/2022 08:16:27 With:David WELLS, JACKY Barrera, URO Address: When: Unknown [facility] 01-02-2022 Note Patient Outreach (DAVIN SHORT) JAMARI ELIZALDE ([id number]) 1940 F Date Time Provider Department 01/02/22 MAGALI SILVIA (PCNA)(HIST) HEMACO During your visit today, we recorded the following information about you: Silvia Magali 01/02/2022 9:34 [address] [facility] [employer] Resistant Bedding [facility] Provider Action/FYI Received referral from [facility] for MAMMOGRAM Screening. Patient is outside of screening age. Will close encounter and end navigation. Jamari Elizalde was contacted to discuss their cancer screening needs. Pt identified by name and . Cancer Screening Care Gap Addressed: Breast Cancer Z12.31 Patient does not have appointment scheduled. Order pended. Outreach Outcome: Dustcloud message sent Payer: Insurance: Payor: MEDICARE / Plan: MEDICARE A AND B / Product Type: Medicare / Payor: MEDICARE / Plan: MEDICARE A AND B / Product Type: Medicare / Discussed with: Niharika Maharaj CNP Follow Up Actions: N/A Barriers: OUTSIDE SCREENING AGE Results Sent to Provider/Practice: NO Silvia De oLs Santos Allergies As of Date: 01/02/2022 Noted Allergy Reaction ADHESIVE 07/29/2018 2 - Rash ASA (ASPIRIN) 07/29/2018 8 - GI Upset Comments: Gastritis PENICILLINS 07/29/2018 2 - Rash Comments: Pt states she is not allergic Date Reviewed: 06/13/2020 Reviewed by: Enrique Rodriguez - Fully Assessed Prescriptions as of 01/02/2022 - diclofenac sodium (VOLTAREN) 1 % topical gel Apply to affected area. - metFORMIN ER (GLUMETZA) 500 mg 24 hr tablet Take 500 mg by mouth daily with breakfast. - amLODIPine (NORVASC) 2.5 mg tablet once daily. - risperiDONE (RISPERDAL) 0.5 mg tablet TAKE 1/2 (ONE-HALF) TO 1 (ONE) TABLET BY MOUTH AT BEDTIME - ALPRAZolam (XANAX) 0.5 mg tablet Take 0.5 mg by mouth three times daily as needed. - Docusate Sodium 100 mg tab Take 1 tablet by mouth at bedtime as needed. - Vitamin E, dl, acetate, 1,000 unit capsule Take 1,000 Units by mouth once daily. - naproxen sodium 220 mg cap Take by mouth as needed. - Ibuprofen 200 mg cap Take by mouth as needed. - sertraline (ZOLOFT) 100 mg tablet Take 100 mg by mouth once daily. - Omeprazole 40 mg capsule Take 40 mg by mouth once daily. - lisinopril (ZESTRIL, PRINIVIL) 20 mg tablet Take 20 mg by mouth once daily. - ferrous sulfate (IRON) 325 mg (65 mg iron) tablet Take 325 mg by mouth daily with breakfast. 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 Author Type: ? Type: Progress Notes Filed: 01/02/2022 9:34 AM Note Text: Summary: Mammogram Screening [facility] Provider Marvin/CHELSEA Received referral from [facility] for MAMMOGRAM Screening. Patient is outside of screening age. Will close encounter and end navigation. Jamari Elizalde was contacted to discuss their cancer screening needs. Pt identified by name and . Cancer Screening Care Gap Addressed: Breast Cancer Z12.31 Patient does not have appointment scheduled. Order pended. Outreach Outcome: MyChart message sent Payer: Insurance: Payor: MEDICARE / Plan: MEDICARE A AND B / Product Type: Medicare / Payor: MEDICARE / Plan: MEDICARE A AND B / Product Type: Medicare / Discussed with: Niharika Maharaj CNP Follow Up Actions: N/A Barriers: OUTSIDE SCREENING AGE Results Sent to Provider/Practice: JASMEET De Los Santos [facility] 01-02-2022 History of Presen t illness Narrative Summary: Mammogram Screening [facility] Provider Action/CHELSEA Received referral from [facility] for MAMMOGRAM Screening. Patient is outside of screening age. Will close encounter and end navigation. Jamari Elizalde was contacted to discuss their cancer screening needs. Pt identified by name and . Cancer Screening Care Gap Addressed: Breast Cancer Z12.31 Patient does not have appointment scheduled. Order pended. Outreach Outcome: MyChart message sent Payer: Insurance: Payor: MEDICARE / Plan: MEDICARE A AND B / Product Type: Medicare / Payor: MEDICARE / Plan: MEDICARE A AND B / Product Type: Medicare / Discussed with: Niharika Maharaj CNP Follow Up Actions: N/A Barriers: OUTSIDE SCREENING AGE Results Sent to Provider/Practice: JASMEET De Los Santos documented in this encounter [facility] Evaluation + Plan note Future Appointments Appointment Date:07/15/2022 01:00:00 PM Scheduled Provider: Location:[facility] Appointment Type:URO Nurse Visit [facility] Evaluation + Plan note Future Appointments Appointment Date:08/07/2022 10:15:00 AM Scheduled Provider:Ivana Hernandez MD Location:[facility] [place] Appointment Type:URO Office Visit [facility] Evaluation + Plan note Future Appointments Appointment Date:08/26/2022 08:30:00 AM Scheduled Provider: Location:[facility] Appointment Type:URO Nurse Visit [facility] [place] Evaluation + Plan note Future Appointments Appointment Date:11/10/2022 02:00:00 PM Scheduled Provider: Location:[facility] Appointment Type:URO Nurse Visit [facility] Evaluation + Plan note Future Appointments Appointment Date:11/10/2022 02:00:00 PM Scheduled Provider: Location:[facility] Appointment Type:URO Nurse Visit Diagnostic Tests PendingUrine Culture 10/12/22 [facility] Evaluation + Plan note Future Appointments Appointment Date:12/23/2022 10:00:00 AM Scheduled Provider: Location:[facility] Appointment Type:URO Nurse Visit [facility] Evaluation + Plan note Future Appointments Appointment Date:01/19/2023 01:00:00 PM Scheduled Provider: Location:[facility] Appointment Type:URO [facility] note Future Appointments Appointment Date:04/13/2023 01:00:00 PM Scheduled Provider: Location:[facility] Appointment Type:URO Nurse Visit [facility] Evaluation + Plan note Future Appointments Appointment Date:05/11/2023 01:00:00 PM Scheduled Provider: Location:[facility] Appointment Type:URO Nurse Visit [facility] Evaluation note No Assessments Infor mation Available [facility] Evaluation note No assessment inform ation available [facility] Work Phone: Evaluation note Diagnosis Onset Date Weight loss acute [facility] Work Phone: Hospital course Narrative No data available for this section [facility] Hospital Discharge instructions No data available for this section [facility] Hospital Discharge instructions Additional Instructions DISCHARGE INSTRUCTIONS FOR ENDOSCOPY FOR COLONOSCOPY: -Expect a gassy or full feeling after a colonoscopy. Report any NEW abdominal pain or vomiting. -Watch for rectal bleeding. You may have oozing, but notify the doctor if you pass clots. -It is important to keep your appointments for follow up examinations because polyps can grow back. FOR MCDONNELL/EGD/ERCP/PEG: -Your throat may feel sore today from the scope that the doctor passed through your throat to visualize your stomach. Take a throat lozenge or suck on ice to ease the discomfort. -Do NOT smoke. -You may notice some streaks of blood in your sputum if the doctor has taken a biopsy. Notify the doctor if you cough up large amounts of blood. -Expect a gassy or full feeling after esophagoscopy. Report any persistent pain or vomiting. -Take it easy today. You need not stay in bed, but avoid strenuous activities such as jogging. FOR SEDATION FOR 24 HOURS: -NO driving -Do NOT operate machinery such as power tools, lawn mowers, snow blowers, sewing machines, etc. -Avoid alcoholic beverages and drugs for allergies, nerves, or sleep. -Do NOT stay alone. Do NOT leave your child unattended. -Do NOT make important personal or business decisions or sign any legal documents. -Eat solid foods and drink liquids in smaller amounts than usual until normal appetite returns. If you should experience an upset stomach, liquids high in sugar content (soda, Didier-aid, non-acid juices) are recommended. -You can resume normal activities tomorrow. FOLLOW UP Please call the office and make a follow up appointment to see me in 6-8 weeks. Soft diet today. Resume normal diet tomorrow. -Notify the doctor if you have any problems. -Office number [phone] Work Phone: Progress note No data available for this section [facility] Advance Directives No Advanced Directives Records Found Advance Directive Response Recorded Date/ Time Advance Directives No August 10, 2018 2:36pm Advance Directive Response Recorded Date/ Time Advance Directives No August 10, 2018 1:36pm Chief Complaint and Reason for Visit Chief Complaint Abdominal Pain, Diar dejah Chief Complaint Weakness, myositis, M25.50, fatigue mhp Chief Complaint mhp Chief Complaint Hypercalcemia, M79.1 Weight Loss, Nausea Reason for Visit Weight loss Summary Purpose Family History No Family History Records Found Relationship Condition Age at Onset Recorded Date/T jocelyne father Heart disease Unknown Not Specified Malignant neoplasm of breast Unknown Additional Source Comments Source Comments (unrecognize d section and content) In the event this informatio n is protected by the Federal Confidentiality of Alcohol and Drug Abuse Patient Records regulations: The Federal rules restrict any use of the information to criminally investigate or prosecute any alcohol or drug abuse patient.[facility] Care Teams (unrecognized sec tion and content) Music Supervisor Relationship Specialty Start Date End Date Kilo Chavez II [address] [facility] [address] [place] [address] PCP - General Internal Medicine 06/30/18 Kilo Chavez II [address] [facility] [address] [place] [address] Referring Internal Medicine 09/30/18 Team Status: Inactive Member Role Status Dates Kilo Chavez II MD Primary Care Provider Active Johann Dolan MD Attending Provider Active Team Status: Active Member Role Status Dates Kilo Chavez II MD Primary Care Provider Active Team Status: Inactive Member Role Status Dates PHYSICIAN NO FAMILY Primary Care Provider Active Oz Beckford Jr, MD Emergency Provider Active Team Status: Active Member Role Status Dates PHYSICIAN NO FAMILY Primary Care Provider Active Team Status: Inactive Member Role Status Dates PHYSICIAN NO FAMILY Primary Care Provider Active Johann Dolan MD Attending Provider Active Team Status: Active Member Role Status Dates Fozia Tobar Primary Care Provider Active Team Status: Inactive Member Role Status Dates Pipe Sanchez MD Attending Provider Active Fozia Tobar Primary Care Provider Active INFORMATION SOURCE (unrecogn ized section and content) DATE CREATED AUTHOR 01/06/2022 [facility] DATE CREATED AUTHOR AUTHOR'S ORGANIZ ATION 06/18/2022 [facility] DATE CREATED AUTHOR AUTHOR'S ORGANIZ ATION 09/12/2022 [facility] DATE CREATED AUTHOR AUTHOR'S ORGANIZ ATION 10/20/2022 [facility] DATE CREATED AUTHOR AUTHOR'S ORGANIZ ATION 04/10/2023 [facility] DATE CREATED AUTHOR AUTHOR'S ORGANIZ ATION 06/09/2023 [facility] Goals (unrecognized section and content) Goals may be documented in a n alternate sectionGoals may be documented in an alternate section No data available for this section No data available for this section No data available for this sectionGoals may be documented in an alternate section No data available for this section No data available for this section No data available for this section No data available for this section No data available for this section No data available for this section No data available for this section No data available for this section FOR RECORDS PERTAINING TO PATIENTS WHO ARE OR HAVE BEEN ENROLLED IN A CHEMICAL DEPENDENCY/SUBSTANCEABUSE PROGRAM, SOME INFORMATION MAY BE OMITTED. This clinical summary was aggregated from multiple sources. Caution should be exercised in using it in the provision of clinical care. This summary normalizes information from multiple sources, and as a consequence, information in this document may materially change the coding, format and clinical context of patient data. In addition, data may be omitted in some cases. CLINICAL DECISIONS SHOULD BE BASED ON THE PRIMARY CLINICAL RECORDS. [employer] [facility]. provides no warranty or guarantee of the accuracy or completeness of information in this document.
[2023-06-13 12:15] LABS: Basophils Percent Auto 0.2 % (0.2-2.0); Eosinophils Absolute Auto 0.2 10^3/uL (0.0-0.7); Eosinophils Percent Auto 1.1 % (0.9-7.0); Hemoglobin 13.1 g/dL (12.0-16.0); Immature Granulocytes Abs Auto 0.06 10^3/uL (0.00-0.03); Immature Granulocytes Pct Auto 0.4 % (0.0-0.5); Lymphocytes Absolute Auto 1.2 10^3/uL (1.2-3.8); Lymphocytes Percent Auto 8.2 % (20.5-60.0); Mean Corpuscular HGB Conc 31.2 g/dL (29.9-35.2); Mean Corpuscular Hemoglobin 29.4 pg (26.7-34.0); Mean Corpuscular Volume 94.4 fL (81.0-99.0); Mean Platelet Volume 8.6 fL (9.5-13.5); Monocytes Absolute Auto 0.6 10^3/uL (0.3-0.8); Monocytes Percent Auto 4.2 % (1.7-12.0); Neutrophils Absolute Auto 12.5 10^3/uL (1.4-6.5); Neutrophils Percent Auto 85.9 % (43.0-75.0); Platelet Count 324 10^3/uL (150-450); Red Blood Count 4.45 10^6/uL (4.20-5.40); Red Cell Distribution Width 14.6 % (11.0-15.0); White Blood Count 14.6 10^3/uL (4.0-11.0)
[2023-06-13 12:30] LABS: Influenza Virus A Antigen Negative; Influenza Virus B Antigen Negative; Internal Control Within Normal Limits; SARS-CoV-2 Ag NEGATIVE (NEGATIVE)
[2023-06-13 12:37] LABS: Anion Gap 13.5; BUN Creatinine Ratio 21.5; Calcium 8.8 mg/dL (8.5-10.1); Chloride 97 mmol/L (98-107); Estimated GFR (African America >60 (>=60); Estimated GFR (Non-African Ame 58 (>=60); Glucose 257 mg/dL (74-106); Potassium 5.5 mmol/L (3.5-5.1); Sodium 130 mmol/L (136-145); Troponin I High Sensitivity 34.1 pg/mL (4.0-51.3)
[2023-06-13] MEDS: CEFTRIAXONE 1,000 MG in 0.9 % SODIUM CHLORIDE 50 ML 100 MG IV (13:51)
--- NOTE | 2023-06-13 13:57 | PC.NURSE ---
pt placed on 2L of o2 per [place] for O2 sat of 91%
--- OUTSIDE RECORDS SUMMARY | 2023-06-13 14:13 | XMS_ITS | CCD ---
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 Role Phone Pipe Sanchez Attending Provider Kilo Chavez Primary Care Provider Kilo Chavez II Primary Care Provider Kilo Chavez II Unavailable MARU Chavez Primary Care Provider [phone] MD Johann Dolan Attending Provider [phone] Unavailable Primary Care Provider Unavailabl e NO FAMILY, PHYSICIAN Primary Care Provider Unava MD Oz Rizvi Jr Emergency Provider BRENDA, CARY Referring Unavailable AHMED, IRFAN Referring Unavailable BRENDA, CARY Referring Unavailable BRENDA, CARY Referring Unavailable BRENDA, CARY Referring Unavailable BRENDA, CARY Referring Unavailable FOZIA TOBAR Primary Care Physician [phone] NO FAMILY, PHYSICIAN Primary Care Provider Unava MD Oz Rizvi Jr Emergency Provider MD Johann Dolan Attending Provider AICHHOLZ, FLOATMAN FOZIA Admitting Unavailable AICHHOLZ, FLOATMAN FOZIA Primary Care Unavailable AICHHOLZ, FLOATMAN FOZIA Attending Unavailable AICHHOLZ, FLOATMAN FOZIA Consulting Unavailable AICHHOLZ, FLOATMAN FOZIA Admitting Unavailable AICHHOLZ, FLOATMAN FOZIA Attending Unavailable AICHHOLZ, FLOATMAN FOZIA Consulting Unavailable AICHHOLZ, FLOATMAN FOZIA Primary Care Unavailable AICHHOLZ, FLOATMAN FOZIA Primary Care Unavailable SHAIKH Kurt PRICE [...] Unavailable DR ERIC BERRY Consulting Unavailable AICHHOLZ, FLOATMAN FOZIA Admitting Unavailable AICHHOLZ, FLOATMAN FOZIA Attending Unavailable AICHHOLZ, FLOATMAN FOZIA Consulting Unavailable AICHHOLZ, FLOATMAN FOZIA Primary Care Unavailable AICHHOLZ, FLOATMAN FOZIA Primary Care Unavailable AICHHOLZ, FLOATMAN FOZIA Attending Unavailable AICHHOLZ, FLOATMAN FOZIA Consulting Unavailable AICHHOLZ, FLOATMAN FOZIA Admitting Unavailable SANDYER, DR ERIC Valero Consulting Unavailable AICHHOLZ, FLOATMAN FOZIA Primary Care Unavailable AICHHOLZ, FLOATMAN FOZIA Consulting Unavailable AICHHOLZ, FLOATMAN FOZIA Attending Unavailable AICHHOLZ, FLOATMAN FOZIA Admitting Unavailable AICHHOLZ, FLOATMAN FOZIA Admitting Unavailable AICHHOLZ, FLOATMAN FOZIA Attending Unavailable AICHHOLZ, FLOATMAN FOZIA Referring Unavailable AICHHOLZ, FLOATMAN FOZIA Consulting Unavailable AICHHOLZ, FLOATMAN FOZIA Primary Care Unavailable ZIEBER, DR ERIC Valero Consulting Unavailable AICHHOLZ, FLOATMAN FOZIA Primary Care Unavailable AICHHOLZ, FLOATMAN FOZIA Consulting Unavailable AICHHOLZ, FLOATMAN FOZIA Attending Unavailable AICHHOLZ, FLOATMAN FOZIA Admitting Unavailable AICHHOLZ, FLOATMAN FOZIA Primary Care Unavailable AICHHOLZ, FLOATMAN FOZIA Consulting Unavailable AICHHOLZ, FLOATMAN FOZIA Attending Unavailable AICHHOLZ, FLOATMAN FOZIA Admitting Unavailable AICHHOLZ, FLOATMAN FOZIA Primary Care Unavailable ADDY MEHTA Attending Unavailable DR JOHANN DOLAN Consulting Unavailable ADDY MEHTA Admitting Unavailable AICHHOLZ, FLOATMAN FOZIA Primary Care Unavailable AICHHOLZ, FLOATMAN FOZIA Consulting Unavailable AICHHOLZ, FLOATMAN FOZIA Attending Unavailable AICHHOLZ, FLOATMAN FOZIA Admitting Unavailable AICHHOLZ, FLOATMAN FOZIA Primary Care Unavailable AICHHOLZ, FLOATMAN FOZIA Consulting Unavailable AICHHOLZ, FLOATMAN FOZIA Attending Unavailable AICHHOLZ, FLOATMAN FOZIA Admitting Unavailable AICHHOLZ, FLOATMAN FOZIA Primary Care Unavailable AICHHOLZ, FLOATMAN FOZIA Consulting Unavailable AICHHOLZ, FLOATMAN FOZIA Attending Unavailable AICHHOLZ, FLOATMAN FOZIA Admitting Unavailable DR ERIC BERRY Consulting Unavailable AICHHOLZ, FLOATMAN FOZIA Primary Care Unavailable AICHHOLZ, FLOATMAN FOZIA Consulting Unavailable AICHHOLZ, FLOATMAN FOZIA Attending Unavailable AICHHOLZ, FLOATMAN FOZIA Admitting Unavailable AICHHOLZ, FLOATMAN FOZIA Primary Care Unavailable AICHHOLZ, FLOATMAN FOZIA Attending Unavailable AICHHOLZ, FLOATMAN FOZIA Consulting Unavailable AICHHOLZ, FLOATMAN FOZIA Admitting Unavailable NO FAMILY, PHYSICIAN Primary Care Provider Unava MD Pipe Jenkins Attending Provider [phone] Moisesaimee, Fozia J Primary Care Provider Johann [...] (1 source) Adhesive agent Drug Allergy 9 [facility] (13 sources) Aspirin; 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: [aspirin] Drug Allergy 9 GI Upset, Gastritis (disorder) [facility] (1 source) Penicillins Drug Allergy 9 Rash [facility] (12 sources) Adhesive Tape; 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: [Tape] Drug allergy Blister - unit of product usage (qualifier value) [facility] (12 sources) Penicillin; 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: [penicillin] Drug Allergy Cutaneous eruption (morphologic abnormality) [facility] (1 source) No Known Medication Allergies; 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: [No Known Medication Allergies] Propensity to adverse reactions (disorder) [facility] Repository NEGATED: Highlighted row has been ruled out! (1 source) Drug allergy [facility] NEGATED: Highlighted row has been ruled out! (1 source) Drug allergy [facility] NEGATED: Highlighted row has been ruled out! (1 source) Drug allergy [facility] NEGATED: Highlighted row has been ruled out! (1 source) Drug allergy [facility] NEGATED: Highlighted row has been ruled out! (1 source) Drug allergy [facility] NEGATED: Highlighted row has been ruled out! (1 source) Drug allergy [facility] NEGATED: Highlighted row has been ruled out! (1 source) Drug allergy [facility] NEGATED: Highlighted row has been ruled out! (1 source) Drug allergy [facility] NEGATED: Highlighted row has been ruled out! (1 source) Drug allergy [facility] NEGATED: Highlighted row has been ruled out! (1 source) Drug allergy [facility] NEGATED: Highlighted row has been ruled out! (1 source) Drug allergy [facility] Medications Current Medications Medication Drug Class(es) Dates [...] exchange, # 6 tab(s), Refills(s) 0, Pharmacy: [facility], 165, cm, 08/07/22 11:07:00 EDT, Height/Length [...] Start: 07-01-2022 take 1 capsule by mo [facility] twice daily as needed for constipation docusate [...] discomfort, # 90 tab(s), Refills(s) 3, Pharmacy: [facility], 165, cm, 11/25/22 9:01:00 EDT, [...] 125mg, # 30 tab(s), Refills(s) 0, Pharmacy: [facility] Start Date: 02/06/19 Status: Ordered Start: [...] 08-04-2018 Chronic Other aftercare (3 sources) Other intermediate (current) drug therapy; 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: [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] Onset: 06-10-2022 Episodic Other bone disease and musculoskeletal deformities (11 sources) Osteopenia 10-11-2018 Episodic Other KIER TENDER infection and poliomyelitis (13 sources) Late effects [...] Onset: 05-05-2022 Episodic Other aftercare (1 source) 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; 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: [DETENTION USE ORAL HYPOGLYCEMIC DX] Onset: 01-21-2022 Episodic Other aftercare (1 source) 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; 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: [DETENTION CURRNT USE ANTICOAGULANTS] Onset: 01-21-2022 Episodic Other [...] Clinical Noteon Retail - Clinical Note [id number]#1.00TIFF [facility] Ambulatory Visit Summaryon 0 05-11-2023 Ambulatory Visit [...] 1:00 PM EST Where: [facility] Retail - Clinical Noteon Retail - Clinical Note [id number]#1.00TIFF [facility] Ambulatory Visit Summaryon 1 05-17-2022 Ambulatory Visit [...] 1:00 PM EST Where: [facility] Retail - Clinical Noteon Retail - Clinical Note [id number]#1.00TIFF [facility] Ambulatory Visit Summaryon 1 Ambulatory Visit Summary [...] 1:00 PM EST Where: [facility] Patient Educationon 11-26-19 Patient Education Obstetrics [...] these instructions at home: Medicines ? Take wkkw-zju-kunosfq and prescription medicines only as told by [...] provider. Document Revised: 11/01/2020 Document Reviewed: 11/01/2020 [employer] Patient Education ? 2022 [employer] Lori [facility] Urology Office/Clinic Noteon 11-25-2022 Urology Office/Clinic Note [...] residual neurologic deficits Suspected per cysto at [facility] in 2019 for gross hematuria. 3+ trabeculations. [...] urine, unspecified) Pt had Ribeiro placed at [facility] on 06/02/22. Cath placed on 07/01/22 PVR > 600cc after failed voiding trial Pt had Ribeiro changed on 06/11/2022 at [facility]. Pt has a tremor and does not [...] a me (more content not included)... Normal [facility] Comment on above: Result Comment: Elec tronically Signed By: David WELLS, Ivana Kirby\.br\Date and Time Signed: 11/25/22 18:15 EDT\.br\Electronically Co-Signed By: Mary Moore\.br\Date and Time Co-Signed: 11/25/22 10:06 EDT IntraOperative Documentson 0 11-09-2022 [facility] Documents [id number]#1.00CD:127 [facility] IntraOperative Documentson 0 10-27-2022 IntraOper[facility] Documents [id number]#1.00CD:127 [facility] Consent for Procedure/Surger yon 10-26-2022 Consent for Procedure/Surgery [id number]#1.00CD:127 [facility] Consent for Treatmenton 10-04 Consent for Treatment [id number]#1.00CD:127 [facility] IntraOperative Documentson 0 10-26-2022 IntraOper[facility] Documents [id number]#1.00CD:127 [facility] Coding Queryon 10-21-2022 Coding Query - From: [...] dx, unable to modify existing computer order [facility] Physician Orderon 10-21-2022 Physician Order [id number]#1.00CD:127 [facility] C Urineon 10-14-2022 Bacteria identified Cx Nom [...] Locations R1: This test was performed at: [facility], [address] [place] [address], [id number]- , , [facility] Comment on above: Performed By: #### 2 [id number] #### [facility] [address] [place] [address] Consent for Treatmenton 10-03 Consent for Treatment [id number]#1.00CD:127 Normal [facility] Ambulatory Visit Summaryon 0 09-30-2022 Ambulatory Visit [...] cholesterol HTN - Hypertension Kidney stone Normal [facility] Glucose Glucometer (BldC) [M ass/Vol]Ordered By: Pipe Sanchez on 09-25-2022 Glucose [Mass/Vol] 169 mg/dL [facility] Comment on above: Random Glucose Refer ence Range is dependent on time and content of last meal. Glucose of more than 200 mg/dL in a nonstressed, ambulatory subject supports the diagnosis of Diabetes Mellitus. Glucose Poct Glucometerson 0 09-25-2022 Commemt1 Glu2: Cleaned Meter Normal [facility] Comment on above: Result Comment: PERF ORMED BY: [facility] [address] [place] [address] PATHOLOGIST SENIOR SALES REPRESENTATIVE LILLY LOTT M.D. Performed By: #### C K, CRP, CMP, CBC, ESR, TSH3 #### [facility] [address] [id number] [place] #### ALDOLASE #### [facility] , Glucose [Mass/Vol] 169 mg/dL Normal [facility] Comment on above: Result Comment: [place] Glucose Reference Range is dependent on time and content of last meal. Glucose of more than 200 mg/dL in a nonstressed, ambulatory subject supports the diagnosis of Diabetes Mellitus. Performed By: #### C K, CRP, CMP, CBC, ESR, TSH3 #### [facility] [address] [place] [address] [place] #### ALDOLASE #### [facility] , Alcides 09-25-2022 L ------- Specimen: [id number] Received: 09/25/22 Status: KATJA Yahaira Num: [id number] Spec Type: Surgical Subm Dr: Pipe Sanchez MD Tissues: A Duodenum - Biopsy (DUODENAL BX) Procedures: HE/2, Gross/Micro L4 Age/ Patient Sex Location Account Attending Physician Jamari Elizalde 82/F [id number] Pipe Sanchez MD SPEC NUM: [id number] RECD: 09/25/22 STATUS: KATJA ANDREW NUM: [id number] JOSE RAUL: 09/25/[address] [facility] [address]: Pipe Sanchez MD ENTERED: 09/25/[address] [facility] [address]: PETE TYPE: Surgical DEPT: S ORDERED: [...] microscopic examination confirms the diagnosis. CPT Codes 44969 Specimen: [id number] Received: 09/25/22 Status: KATJA Andrew Num: [id number] Spec Type: Surgical Subm Dr: Pipe Sanchez MD Tissues: A Duodenum - Biopsy (DUODENAL BX) Procedures: HE/2, Gross/Micro L4 Patient: Jamari Elizalde [id number] (Continued) Signed (signature on file) Adore Kenyon MD 09/28/22 1057 Normal [facility] No Panel InformationOrdered By: Pipe Sanchez on 09-25-2022 Bedside Glucose Comment Glu2: cleaned meter [facility] CBC AUTO DIFFon 09-01-2022 BASO # 0.0 103/ul Normal 0.0-0.1 [facility] Comment on above: Performed By: #### L IPID, BMP, NA #### [facility] [address] [address] [address] Dilip Cartagena Basophils/100 WBC (Bld) 0.6 % Normal 0.2-2.0 [facility] Comment on above: Performed By: #### L IPID, BMP, NA #### [facility] [address] [address] [address] Dilip Cartagena EO # 0.3 103/ul Normal 0.0-0.7 [facility] Comment on above: Performed By: #### L IPID, BMP, NA #### [facility] [address] [place] [address] Dr. Dilip Cartagena Eosinophils/100 WBC (Bld) 3.9 % Normal 0.9-7.0 [facility] Comment on above: Performed By: #### L IPID, BMP, NA #### [facility] [address] [place] [address] Dr. Dilip Cartagena Erythrocyte distribution width (RBC) [Ratio] 14.1 % Normal 11.0-15.0 [facility] Comment on above: Performed By: #### L IPID, BMP, NA #### [facility] [address] [place] [address] Dr. Dilip Cartagena Hematocrit (Bld) [Volume fraction] 40.2 % Normal 36.0-48.0 [facility] Comment on above: Performed By: #### L IPID, BMP, NA #### [facility] [address] [place] [address] Dr. Dilip Cartagena Hemoglobin (Bld) [Mass/Vol] 13.5 g/dL Normal 12.0-16.0 [facility] Comment on above: Performed By: #### L IPID, BMP, NA #### [facility] [address] [place] [address] Dr. Dilip Cartagena IG # 0.03 10e3/ul Normal 0.00-0.03 [facility] Comment on above: Performed By: #### L IPID, BMP, NA #### [facility] [address] [place] [address] Dr. Dilip Cartagena IG % 0.4 % Normal 0.0-0.5 [facility] Comment on above: Performed By: #### L IPID, BMP, NA #### [facility] [address] [place] [address] Dr. Dilip Cartagena LYMPH # 2.4 103/ul Normal 1.2-3.8 [facility] Comment on above: Performed By: #### L IPID, BMP, NA #### [facility] [address] [place] [address] Dr. Dilip Cartagena Lymphocytes/100 WBC (Bld) 33.0 % Normal 20.5-60.0 [facility] Comment on above: Performed By: #### L IPID, BMP, NA #### [facility] [address] [place] [address] Dr. Dilip Cartagena MANUAL DIFF REQ NO Normal [facility] Comment on above: Performed By: #### L IPID, BMP, NA #### [facility] [address] [place] [address] Dr. Dilip Cartagena MCH (RBC) [Entitic mass] 31.1 pg Normal 26.7-34.0 [facility] Comment on above: Performed By: #### L IPID, BMP, NA #### [facility] [address] [place] [address] Dr. Dilip Cartagena MCHC (RBC) [Mass/Vol] 33.6 g/dL Normal 29.9-35.2 [facility] Comment on above: Performed By: #### L IPID, BMP, NA #### [facility] [address] [place] [address] Dr. Dilip Cartagena MCV (RBC) [Entitic vol] 92.6 fL Normal 81.0-99.0 [facility] Comment on above: Performed By: #### L IPID, BMP, NA #### [facility] [address] [place] [address] Dr. Dilip Cartagena MONO # 0.5 103/ul Normal 0.3-0.8 [facility] Comment on above: Performed By: #### L IPID, BMP, NA #### [facility] [address] [place] [address] Dr. Dilip Cartagena Monocytes/100 WBC (Bld) 6.9 % Normal 1.7-12.0 [facility] Comment on above: Performed By: #### L IPID, BMP, NA #### [facility] [address] [place] [address] Dr. Dilip Cartagena NEUT # 4.0 103/ul Normal 1.4-6.5 [facility] Comment on above: Performed By: #### L IPID, BMP, NA #### [facility] [address] [place] [address] Dr. Dilip Cartagena Neutrophils/100 WBC (Bld) 55.2 % Normal 43.0-75.0 [facility] Comment on above: Performed By: #### L IPID, BMP, NA #### [facility] [address] [place] [address] Dr. Dilip Cartagena Platelet mean volume (Bld) [Entitic vol] 7.9 fL Critically low 9.5-13.5 [facility] Comment on above: Performed By: #### L IPID, BMP, NA #### [facility] [address] [place] [address] Dr. Dilip Cartagena PLT 391 103/ul Normal 150-450 [facility] Comment on above: Performed By: #### L IPID, BMP, NA #### [facility] [address] [place] [address] Dr. Dilip Cartagena RBC 4.34 106/ul Normal 4.20-5.40 [facility] Comment on above: Performed By: #### L IPID, BMP, NA #### [facility] [address] [place] [address] Dr. Dilip Cartagena WBC 7.3 103/ul Normal 4.0-11.0 [facility] Comment on above: Performed By: #### L IPID, BMP, NA #### [facility] [address] [place] [address] Dr. Dilip Cartagena FREE T3on 09-01-2022 FREE T3 3.18 pg/mlL Normal 2.18-3.98 [facility] Comment on above: Performed By: #### U RCX #### [facility] [address] [place] [address] Dr. Dilip Cartagena FREE T4on 09-01-2022 Free T4 [Mass/Vol] 1.96 ng/dL Critically high 0.76-1.46 [facility] Comment on above: Performed By: #### P OCGLUC #### [facility] [address] [place] [address] Dr. Dilip Cartagena GLYCOHEMOGLOBIN A1Con 2022 ADA RECOMMENDATION SEE BELOW Normal [facility] Comment on above: Result Comment: ADA RECOMMENDED LIMIT 4.0 - 6.0 ADA THERAPEUTIC TARGET < 7.0 ACTION SUGGESTED > 7.0 Performed By: #### U RCX #### [facility] [address] [place] [address] Dr. Dilip Cartagena Glucose [Mass/Vol] 114 mg/dL Normal [facility] Comment on above: Performed By: #### U RCX #### [facility] [address] [place] [address] Dr. Dilip Cartagena HbA1c (Bld) [Mass fraction] 5.6 % Normal 4.5-6.2 [facility] Comment on above: Performed By: #### U RCX #### [facility] [address] [place] [address] Dr. Dilip Cartagena MAGNESIUMon 09-01-2022 Magnesium [Mass/Vol] 2.4 mg/dL Normal 1.8-2.4 [facility] Comment on above: Performed By: #### U RCX #### [facility] [address] [place] [address] Dr. Dilip Cartagena PROF 14(COMP METB)on 023 Albumin [Mass/Vol] 4.0 g/dL Normal 3.4-5.0 [facility] Comment on above: Performed By: #### U RCX #### [facility] [address] [place] [address] Dr. Dilip Cartagena Albumin/Globulin [Mass ratio] 1.1 {ratio} Normal [facility] Comment on above: Performed By: #### U RCX #### [facility] [address] [place] [address] Dr. Dilip Cartagena ALP [Catalytic activity/Vol] 87 U/L Normal 46-116 [facility] Comment on above: Performed By: #### U RCX #### [facility] [address] [place] [address] Dr. Dilip Cartagena ALT [Catalytic activity/Vol] 24 U/L Normal 14-59 [facility] Comment on above: Performed By: #### U RCX #### [facility] [address] [address] [address] Dilip Cartagena Anion gap [Moles/Vol] 13.2 mmol/L Normal Th e [facility] Comment on above: Performed By: #### U RCX #### [facility] [address] [address] [address] Dilip Cartagena AST [Catalytic activity/Vol] 9 U/L Critically low 15-37 [facility] Comment on above: Performed By: #### U RCX #### [facility] [address] [place] [address] Dr. Dilip Cartagena Bilirubin [Mass/Vol] 0.5 mg/dL Normal 0.2-1.0 [facility] Comment on above: Performed By: #### U RCX #### [facility] [address] [place] [address] Dr. Dilip Cartagena Calcium [Mass/Vol] 9.5 mg/dL Normal 8.5-10.1 [facility] Comment on above: Performed By: #### U RCX #### [facility] [address] [place] [address] Dr. Dilip Cartagena Chloride [Moles/Vol] 94 mmol/L Critically low 98-107 [facility] Comment on above: Performed By: #### U RCX #### [facility] [address] [place] [address] Dr. Dilip Cartagena CO2 [Moles/Vol] 26.5 mmol/L Normal 21.0-32.0 [facility] Comment on above: Performed By: #### U RCX #### [facility] [address] [place] [address] Dr. Dilip Cartagena Creatinine [Mass/Vol] 0.94 mg/dL Normal 0.55-1.02 [facility] Comment on above: Performed By: #### U RCX #### [facility] [address] [place] [address] Dr. Dilip Cartagena EGFR-AF CYPRIOT >60 Normal >=60 [facility] Comment on above: Performed By: #### U RCX #### [facility] [address] [address] [address] Dilip Cartagena EGFR-NON AF CYPRIOT 57 mL/min/1.73m2 Critically low >=60 [facility] Comment on above: Performed By: #### U RCX #### [facility] [address] [address] [address] Dilip Cartagena Globulin (S) [Mass/Vol] 3.7 g/dL Normal [facility] Comment on above: Performed By: #### U RCX #### [facility] [address] [place] [address] Dr. Dilip Cartagena Glucose [Mass/Vol] 140 mg/dL Critically high 74-106 T [facility] Comment on above: Performed By: #### U RCX #### [facility] [address] [place] [address] Dr. Dilip Cartagena Potassium [Moles/Vol] 4.7 mmol/L Normal 3.5-5.1 [facility] [facility] Comment on above: Performed By: #### U RCX #### [facility] [address] [place] [address] Dr. Dilip Cartagena Protein [Mass/Vol] 7.7 g/dL Normal 6.4-8.2 [facility] Comment on above: Performed By: #### U RCX #### [facility] [address] [place] [address] Dr. Dilip Cartagena Sodium [Moles/Vol] 129 mmol/L Critically low 136-145 [facility] Comment on above: Performed By: #### U RCX #### [facility] [address] [address] [address] Dilip Cartagena Urea nitrogen [Mass/Vol] 16.0 mg/dL Normal 7.0-18.0 [facility] Comment on above: Performed By: #### U RCX #### [facility] [address] [address] [address] Dilip Cartagena Urea nitrogen/Creatinine [Mass ratio] 17.0 mg/mg Normal [facility] Comment on above: Performed By: #### U RCX #### [facility] [id number] Dilip Cartagena TSHon 09-01-2022 TSH 1.087 uIU/mL Normal 0.358-3.74 0 [facility] Comment on above: Performed By: #### U RCX #### [facility] [id number] Dilip Cartagena Ambulatory Visit Summaryon 0 [...] cholesterol HTN - Hypertension Kidney stone Normal [facility] Nurse Consultation Noteon Nurse Consultation Note Reason [...] in 1m w/PVR w/MARQUEZ or KML Normal [facility] Screenson 08-10-2022 Screens [id number]:127 Normal [facility] Patient Educationon 08-08-19 23 Patient Education Urology [...] health care provider. General instructions ? Take rfqi-mvf-gswubiw and prescription medicines only as told by [...] urine. (more content not included)... Normal [facility] Urology Office/Clinic Noteon 08-07-2022 Urology Office/Clinic Note [...] such as MS. Suspected per cysto at [facility] in 2019 for gross hematuria. 3+ trabeculations. [...] urine, unspecified) Pt had Ribeiro placed at [facility] on 06/02/22. Cath placed on 07/01/22 PVR > 600cc after failed voiding trial Pt had Ribeiro changed on 06/11/2022 at [facility]. Pt has a tremor and does not [...] decisions made by me. Authenticated by Dr. Hrenandez on 08/07/2022 13:46:18. Problem List/Past Medical History [...] Oral, Once (more content not included)... Normal [facility] Comment on above: Result Comment: Elec tronically Signed By: David WELLS, Ivana Kirby\.br\Date and Time Signed: 08/07/22 13:46 EDT\.br\Electronically Co-Signed By: Lily Sood\.br\Date and Time Co-Signed: 08/07/22 11:45 EDT C reactive protein [Mass/vol ume] in Serum or PlasmaOrdered By: Johann Dolan on 07-30-2022 CRP [Mass/Vol] < 0.5 mg/dL 0.0-0.5 [facility] C-Reactive Proteinon 023 CRP [Mass/Vol] mg/L Normal 0.0-0.5 [facility] Comment on above: Result Comment: PERF ORMED BY: [place] [address] PATHOLOGIST SENIOR SALES REPRESENTATIVE LILLY LOTT M.D. Performed By: #### C K, CRP, CMP, CBC, ESR, TSH3 #### [address] #### ALDOLASE #### [facility] , Creatine Kinaseon 07-30-2022 CK [Catalytic activity/Vol] 344 U/L High [facility] Comment on above: Result Comment: PERF ORMED BY: [place] [address] PATHOLOGIST SENIOR SALES REPRESENTATIVE LILLY LOTT M.D. Performed By: #### S VICENTA COVID-19 KATELYN #### [address] Creatine kinase [Enzymatic a ctivity/volume] in Serum or PlasmaOrdered By: Johann Dolan on 07-30-2022 CK [Catalytic activity/Vol] 344 U/L [facility] Erythrocyte Sedimentation Ra yvonne 07-30-2022 ESR (Bld) [Velocity] 13 mm/h Normal 0-29 [facility] Comment on above: Result Comment: PERF ORMED BY: [place] [address] PATHOLOGIST SENIOR SALES REPRESENTATIVE LILLY LOTT M.D. Performed By: #### S VICENTA COVID-19 KATELYN #### [address] Erythrocyte sedimentation ra te by Photometric methodOrdered By: Johann Dolan on 07-30-2022 ESR Photometric method (Bld) [Velocity] 13 mm/hr 0-29 [facility] Ionized Calciumon 07-30-2022 Ionized Calcium 4.9 mg/dL Normal 4.5-5.6 [facility] Comment on above: Result Comment: Perf ormed at: - [facility] [id number] Electrical Mechanic: Reggie Lazcano PhD, Phone: [phone] PERFORMED BY: [place] [address] PATHOLOGIST SENIOR SALES REPRESENTATIVE LILLY LOTT M.D. Performed By: #### C K, CRP, CMP, CBC, ESR, TSH3 #### [facility] [address] [place] [address] #### ALDOLASE #### [facility] , Parathyrin.intact [Mass/volu me] in Serum or PlasmaOrdered By: Johann Dolan on 07-30-2022 Parathyrin.intact [Mass/Vol] 34.7 pg/mL [facility] Parathyroid Hormone Intacton 07-30-2022 Parathyroid Hormone Intact 34.7 pg/mL Normal [facility] Comment on above: Result Comment: PERF ORMED BY: [place] [address] PATHOLOGIST SENIOR SALES REPRESENTATIVE LILLY LOTT M.D. Performed By: #### S LAURA YADAV #### [address] Parathyroid Hormone Related Pron 07-30-2022 Parathyroid Hormone Related Pr <2.0 Normal . [facility] Comment on above: Result Comment: This test [...] discordant, please contact the laboratory. Performed at: [facility] [address] [place] [id number] Electrical Mechanic: Pawel Fong MD, Phone: [phone] Performed By: #### C K, CRP, CMP, CBC, ESR, TSH3 #### [facility] [address] #### ALDOLASE #### [facility] , Serum ionized calcium measur ement using ion specific electrode (mass/volume)Ordered By: Johann Dolan on 07-30-2022 Calcium.ionized ISE [Mass/Vol] 4.9 mg/dL 4.5-5.6 [facility] Comment on above: Performed at: CB - [facility] [id number] [place], [place] [id number] Director: Reggie Lazcano PhD, Phone: [phone] Serum or plasma parathyroid hormone related peptide (PTHrP) measurement (moles/volumeOrdered By: Johann Dolan on 07-30-2022 Parathyrin related protein [Moles/Vol] <2.0 pmol/L . [facility] Comment on above: This test was develo [...] contact the laboratory.Performed at: ES - [facility] [place], [place] [id number] Director: Pawel Fong MD, Phone: [phone] Lab [facility] 07-29-2022 Lab Reports [id number]:127 Normal [facility] CULTURE URINEon 07-28-2022 CULTURE URINE Isolate 1 [...] F Levofloxacin 0.25 S F Normal [facility] Comment on above: Performed By: #### U RCX #### [facility] [address] [place] [address] Dr. Dilip Cartagena UA RANDOM W/MICROSCOPICon BACTERIA LARGE Abnormal NONE SEEN [facility] Comment on above: Performed By: #### U RCX #### [facility] [address] [place] [address] Dr. Dilip Cartagena Bilirubin Ql (U) Negative Normal NEGATIVE [facility] Comment on above: Performed By: #### U RCX #### [facility] [address] [place] [address] Dr. Dilip Cartagena CA OX CRYSTALS FEW Normal [facility] Comment on above: Performed By: #### U RCX #### [facility] [address] [place] [address] Dr. Dilip Cartagena CAST NONE SEEN Normal NONE SEEN [facility] Comment on above: Performed By: #### U RCX #### [facility] [address] [place] [address] Dr. Dilip Cartagena Clarity (U) CLEAR Normal CLEAR [facility] Comment on above: Performed By: #### U RCX #### [facility] [address] [place] [address] Dr. Dilip Cartagena Color (U) LT. YELLOW Normal YELLOW [facility] Comment on above: Performed By: #### U RCX #### [facility] [address] [place] [address] Dr. Dilip Cartagena Crystals LM Nom (Urine sed) SEEN Abnormal NONE SEEN [facility] Comment on above: Performed By: #### U RCX #### [facility] [address] [address] [address] Dilip Cartagena Epithelial cells LM Ql (Urine sed) FEW Abnormal NONE SEEN /RARE [facility] Comment on above: Performed By: #### U RCX #### [facility] [address] [place] [address] Dr. Dilip Cartagena Glucose Ql (U) Negative Normal NEGATIVE [facility] Comment on above: Performed By: #### U RCX #### [facility] [address] [place] [address] Dr. Dilip Cartagena Hemoglobin Ql (U) SMALL Abnormal NEGATIVE [facility] Comment on above: Performed By: #### U RCX #### [facility] [address] [place] [address] Dr. Dilip Cartagena Ketones Ql (U) Negative Normal NEGATIVE [facility] Comment on above: Performed By: #### U RCX #### [facility] [address] [place] [address] Dr. Dilip Cartagena LEUKOCYTES LARGE Abnormal NEGATIVE [facility] Comment on above: Performed By: #### U RCX #### [facility] [address] [place] [address] Dr. Dilip Cartagena MUCOUS NONE SEEN Normal NONE SEEN [facility] Comment on above: Performed By: #### U RCX #### [facility] [address] [place] [address] Dr. Dilip Cartagena Nitrite Ql (U) Positive Abnormal NEGATIVE [facility] Comment on above: Performed By: #### U RCX #### [facility] [address] [place] [address] Dr. Dilip Cartagena pH (U) 5.5 [pH] Normal 5-9 [facility] Comment on above: Performed By: #### U RCX #### [facility] [address] [place] [address] Dr. Dilip Cartagena RBC 0-2 Normal 0-2 [facility] Comment on above: Performed By: #### U RCX #### [facility] [address] [address] [address] Dilip Cartagena SPEC GRAVITY 1.020 Normal 1.005-<=1. 025 [facility] Comment on above: Performed By: #### U RCX #### [facility] [address] [address] [address] Dilip Cartagena UA PROTEIN 30 mg/dl Abnormal NEGATIVE/ TRACE [facility] Comment on above: Performed By: #### U RCX #### [facility] [address] [address] [address] Dilip Cartagena Urobilinogen Qn (U) 0.2 {Hallie'U}/dL Normal 0.2 - 1. 0 [facility] Comment on above: Performed By: #### U RCX #### [facility] [address] [address] [address] Dilip Cartagena WBC 20-50 Abnormal NONE SEEN [facility] Comment on above: Performed By: #### U RCX #### [facility] [address] [address] [address] Dilip Cartagena Ambulatory Visit Summaryon 0 [...] Barrera, URO When: Where: [address] [place] [address]- [phone] Medications What How Much When Why Instructions [...] This condit (more content not included)... Normal [facility] Patient Educationon 07-16-19 Patient Education Urology Neurogenic [...] health care provider. General instructions ? Take oxwy-xlb-kihawca and prescription medicines only as told by [...] Chills. ? (more content not included)... Normal [facility] Urology Office/Clinic Noteon 07-15-2022 Urology Office/Clinic Note Chief Complaint 2 week follow up HPI Staff Pt currently has a cath was replaced at last visit on 07/01/22. 2wk PVR following ribeiro removal on 07/01/22. Catheter inserted 06/02/22 @ [facility] due to Urinary retention/NGB. Additional DX:Adrenal Nodule, [...] voiding trial Pt had Ribeiro placed at [facility] on 06/02/2022 Pt had Ribeiro changed on 06/11/2022 at [facility] Pt has a tremor and does not [...] on CT Scan done on 06/02/2022 at [facility] Pt states that she has known about it for years, states it is stable. Declined metabolic workup at this time 4. UTI (urinary tract infection) (N39.0: Urinary tract infection, site not specified) UTI (asymptomatic) 05/05/2022[facility] 06/[facility]/20[facility] - ribeiro exchange Discussed risks of recurrence given incomplete emptying, denies complicated UTIs Follow-up With When Contact Information David WELLS, Ivana Kirby, URL, [facility] [address], [place] [address]- [phone] Additional Instructions: Pt will f/u in 1 [...] Oral, BID aspirin (more content not included)... [facility] Comment on above: Result Comment: Elec tronically Signed By: Ivana Hernandez MD\.br\Date and Time Signed: 07/15/22 14:00 EDT\.br\Electronically Co-Signed By: Lucretia Fuchs MA\.br\Date and Time Co-Signed: 07/15/22 11:49 EDT\.br\Electronically Co-Signed By: Lucretia Fuchs MA\.br\Date and Time Co-Signed: 07/15/22 11:50 EDT [facility] 07-06-2022 Lab Reports [id number]:127 [facility] Ambulatory Visit Summaryon 0 07-01-2022 Ambulatory Visit [...] Wednesday 1:00 PM EDT Where: [facility] Ambulatory Visit Summary JAMARI ELIZALDE [...] Wednesday 1:00 PM EDT Where: [facility] Patient Educationon 07-01-20 23 Patient [...] health care provider. General instructions ? Take azid-xvi-worzpug and prescription medicines only as told by [...] Chills. ? (more content not included)... Normal [facility] Screenson 07-01-2022 Screens [id number]:127 Normal [facility] PTH INTACTon 06-20-2022 PTH, Intact 28 pg/mL Normal 15-65 [facility] Comment on above: Performed By: #### L IPID BMP, NA #### [facility] [address] [place] [address] Dr. Dilip Cartagena GGTon 06-19-2022 Gamma glutamyl transferase [Catalytic activity/Vol] 22 U/L Normal 8-55 [facility] Comment on above: Performed By: #### U RCX #### [facility] [address] [place] [address] Dr. Dilip Cartagena LIPID PROFILEon 06-19-2022 CHOL-HDL RATIO NORM SEE BELOW Normal [facility] Comment on above: Result Comment: 3.3 - 4.4 LOW RISK 4.4 - 7.1 AVERAGE RISK 7.1 - 11.0 MODERATE RISK >11.0 HIGH RISK Performed By: #### L IPID BMP, NA #### [facility] [address] [place] [address] Dr. Dilip Cartagena Cholesterol [Mass/Vol] 163 mg/dL Normal <=200 [facility] Comment on above: Performed By: #### L IPID, BMP, NA #### [facility] [address] [place] [address] Dr. Dilip Cartagena Cholesterol in HDL [Mass/Vol] 46 mg/dL Normal 40-60 [facility] Comment on above: Performed By: #### L IPID, BMP, NA #### [facility] [address] [place] [address] Dr. Dilip Cartagena Cholesterol in LDL [Mass/Vol] 101.6 mg/dL Normal [facility] Comment on above: Performed By: #### L IPID, BMP, NA #### [facility] [address] [place] [address] Dr. Dilip Cartagena Cholesterol.total/Chol esterol in HDL [Mass ratio] 3.5 {ratio} Normal [facility] Comment on above: Performed By: #### L IPID, BMP, NA #### [facility] [address] [place] [address] Dr. Dilip Cartagena HDL NORMAL > or = 60 mg/dl - LO W CARDIOVASCULAR RISK <40 mg/dl - HIGH CARDIOVASCULAR RISK Normal [facility] Comment on above: Performed By: #### L IPID, BMP, NA #### [facility] [address] [place] [address] Dr. Dilip Cartagena LDL CALC NORMAL SEE BELOW Normal [facility] Comment on above: Result Comment: <100 mg/dl OPTIMAL 100 - 129 mg/dl NEAR OR ABOVE OPTIMAL 130 - 159 mg/dl BORDERLINE HIGH 160 - 189 mg/dl HIGH >190 mg/dl VERY HIGH Performed By: #### L IPID, BMP, NA #### [facility] [address] [place] [address] Dr. Dilip Cartagena Triglyceride [Mass/Vol] 77 mg/dL Normal <=150 [facility] Comment on above: Performed By: #### L IPID BMP, NA #### [facility] [address] [place] [address] Dr. Dilip Cartagena VLDL CALC 15.4 mg/dL Normal [facility] Comment on above: Performed By: #### L IPID, BMP, NA #### [facility] [address] [place] [address] Dr. Dilip Cartagena PROF CHEM 8 (BAS METB)on Anion gap [Moles/Vol] 17.9 mmol/L Normal [facility] Comment on above: Performed By: #### L IPID, BMP, NA #### [facility] [address] [place] [address] Dr. Dilip Cartagena Calcium [Mass/Vol] 9.0 mg/dL Normal 8.5-10.1 [facility] Comment on above: Performed By: #### L IPID, BMP, NA #### [facility] [address] [place] [address] Dr. Dilip Cartagena Performed By: #### U RCX #### [facility] [address] [place] [address] Dr. Dilip Cartagena Chloride [Moles/Vol] 98 mmol/L Normal 98-107 [facility] Comment on above: Performed By: #### L IPID, BMP, NA #### [facility] [address] [place] [address] Dr. Dilip Cartagena CO2 [Moles/Vol] 21.9 mmol/L Normal 21.0-32.0 [facility] Comment on above: Performed By: #### L IPID, BMP, NA #### [facility] [address] [place] [address] Dr. Dilip Cartagena Creatinine [Mass/Vol] 0.68 mg/dL Normal 0.55-1.02 [facility] Comment on above: Performed By: #### L IPID, BMP, NA #### [facility] [address] [place] [address] Dr. Dilip Cartagena EGFR-AF CYPRIOT >60 Normal >=60 [facility] Comment on above: Performed By: #### L IPID, BMP, NA #### [facility] [address] [place] [address] Dr. Dilip Cartagena EGFR-NON AF CYPRIOT >60 Normal >=60 [facility] Comment on above: Performed By: #### L IPID, BMP, NA #### [facility] [address] [place] [address] Dr. Dilip Cartagena Glucose [Mass/Vol] 114 mg/dL Critically high 74-106 T [facility] Comment on above: Performed By: #### L IPID, BMP, NA #### [facility] [address] [place] [address] Dr. Dilip Cartagena Potassium [Moles/Vol] 4.8 mmol/L Normal 3.5-5.1 [facility] Comment on above: Performed By: #### L IPID, BMP, NA #### [facility] [address] [address] [address] Dilip Cartagena Sodium [Moles/Vol] 133 mmol/L Critically low 136-145 [facility] Comment on above: Performed By: #### L IPID, BMP, NA #### [facility] [address] [address] [address] Dilip Cartagena Urea nitrogen [Mass/Vol] 17.0 mg/dL Normal 7.0-18.0 [facility] Comment on above: Performed By: #### L IPID, BMP, NA #### [facility] [address] [address] [address] Dilip Cartagena Urea nitrogen/Creatinine [Mass ratio] 25.0 mg/mg Normal [facility] Comment on above: Performed By: #### L IPID, BMP, NA #### [facility] [address] [address] [address] Dilip Cartagena NA (Sodium)on 06-15-2022 Sodium [Moles/Vol] 130 mmol/L Low 135-144 [facility] Comment on above: Performed By: #### N A #### [facility] [address] [place] [address] Electrical Mechanic: Loretta Davis MD Sodiumon 06-15-2022 Interpretation and review of laboratory results Abnormal [facility] Sodium [Moles/Vol] 130 mmol/L Low 135 - 144 mmol/L [facility] NA (Sodium)on 06-12-2022 Sodium [Moles/Vol] 123 mmol/L Low 135-144 [facility] Comment on above: Performed By: #### N A #### [facility] [address] [place] [address] Electrical Mechanic: Loretta Davis MD Sodiumon 06-12-2022 Interpretation and review of laboratory results Abnormal [facility] Sodium [Moles/Vol] 123 mmol/L Low 135 - 144 mmol/L [facility] Cult,Urineon 06-10-2022 Cult,Urine Specimen Description .CLEAN CATCH URINE Culture ENTEROCOCCUS FAECALIS >[id number] CFU/ML Report Status FINAL 06/10/2022 SUSCEPTIBILITY Organism ENTEROCOCCUS FAECALIS Method MAR[facility] Ampicillin <=2 SUSCEPTIBLE Ciprofloxacin 1 SUSCEPTIBLE Levofloxacin 1 SUSCEPTIBLE Nitrofurantoin <=16 SUSCEPTIBLE Tetracycline <=1 SUSCEPTIBLE Vancomycin 1 SUSCEPTIBLE Susceptible [facility] Comment on above: Performed By: #### U #### [facility] [address] [place], [place] [id number] Electrical Mechanic: Lemuel Chan MD [facility] [address] [place] [address] Electrical Mechanic: Loretta Davis MD Lipid Panelon 06-10-2022 Cholesterol [Mass/Vol] 190 mg/dL NINF - 200 mg/dL [facility] Comment on above: Cholesterol Guidelines: <200 Desirable 200-240 Borderline >240 Undesirable Cholesterol in HDL [Mass/Vol] 51 mg/dL 40 - PINF mg/dL [facility] Comment on above: HDL Guidelines: <40 Undesirable 40-59 Borderline >59 Desirable Cholesterol in LDL [Mass/Vol] 103 mg/dL 0 - 130 mg/dL [facility] Comment on above: LDL Guidelines: <100 Desirable 100-129 Near to/above Desirable 130-159 Borderline >159 Undesirable Direct (measured) LDL and calculated LDL are not interchangeable tests. Cholesterol.total/Chol esterol in HDL [Mass ratio] 3.7 {ratio} NINF - 5 [facility] Interpretation and review of laboratory results Abnormal [facility] Triglyceride [Mass/Vol] 179 mg/dL High NINF - 150 mg/dL [facility] Comment on above: Triglyceride Guidelines: <150 Desirable 150-199 Borderline 200-499 High >499 Very high Based on AHA Guidelines for fasting triglyceride, January 2012. [facility] Lipid Profileon 06-10-2022 Cholesterol [Mass/Vol] 190 mg/dL Normal <200 [place] Comment on above: Result Comment: Cholesterol Guidelines: <200 Desirable 200-240 Borderline >240 Undesirable Performed By: #### T #### [facility] [address] [place] [address] Electrical Mechanic: Loretta Davis MD #### LIPR #### [id number] [place], [place] [id number] Electrical Mechanic: Lemuel Chan MD Cholesterol in HDL [Mass/Vol] 51 mg/dL Normal >40 [facility] Comment on above: Result Comment: HDL Guidelines: <40 Undesirable 40-59 Borderline >59 Desirable Performed By: #### T SH #### [facility] [address] [place] [address] [address] [place], [place] [id number] Electrical Mechanic: Loretta Davis MD #### LIPR #### [address] [id number] Electrical Mechanic: Lemuel Chan MD Cholesterol in LDL [Mass/Vol] 103 mg/dL Normal 0-130 [facility] Comment on above: Result Comment: LDL Guidelines: <100 Desirable 100-129 Near to/above Desirable 130-159 Borderline >159 Undesirable Direct (measured) LDL and calculated LDL are not interchangeable tests. Performed By: #### T SH #### [facility] [address] [place] [address] Dr[address] [place], [place] [id number] Electrical Mechanic: Loretta Davis MD #### LIPR #### [address] [address] Electrical Mechanic: Lemuel Chan MD Cholesterol.total/Chol esterol in HDL [Mass ratio] 3.7 {ratio} Normal <5 [facility] Comment on above: Performed By: #### T SH #### [facility] [address] [place] [address] Dr. [place], [place] [phone] Electrical Mechanic: Loretta Davis MD #### LIPR #### [address] [id number] Electrical Mechanic: Lemuel Chan MD Triglyceride [Mass/Vol] 179 mg/dL High <150 [facility] Comment on above: Result Comment: Triglyceride Guidelines: <150 Desirable 150-199 Borderline 200-499 High >499 Very high Based on AHA Guidelines for fasting triglyceride, January 2012. Performed By: #### T SH #### [facility] [address] [place] [address] [place] [address] Electrical Mechanic: Loretta Davis MD #### LIPR #### [facility] [address] [place], [place] [phone] Electrical Mechanic: Lemuel Chan MD TSHon 06-10-2022 TSH Qn 1.20 m[IU]/L [facility] Thyroid Stim. Horm.on 2022 Thyroid Stim. Horm. 1.20 uIU/mL Normal 0.30-5.00 [facility] Comment on above: Performed By: #### T SH #### [address] [place] [address] Electrical Mechanic: Loretta Davis MD #### LIPR #### [id number] [place], [place] [phone] Electrical Mechanic: Lemuel Chan MD CBCon 2 Erythrocyte distribution width (RBC) [Ratio] 13.1 % Normal 11.8-14.4 [facility] Comment on above: Performed By: #### C VU, CP #### [address] [place] [address] Electrical Mechanic: Loretta Davis MD Hematocrit (Bld) [Volume fraction] 37.0 % Normal 36.3-47.1 [facility] Comment on above: Performed By: #### C BC, CP #### [facility] [address] [place] [address] Electrical Mechanic: Loretta Davis MD Hemoglobin (Bld) [Mass/Vol] 12.6 g/dL Normal 11.9-15.1 [facility] Comment on above: Performed By: #### C BC, CP #### [facility] [address] [place] [address] [place] [address] Electrical Mechanic: Loretta Davis MD MCH (RBC) [Entitic mass] 31.7 pg Normal 25.2-33.5 [facility] Comment on above: Performed By: #### C VU, CP #### [address] [place], [place] [phone] Electrical Mechanic: Loretta Davis MD MCHC (RBC) [Mass/Vol] 34.1 g/dL Normal 28.4-34.[address] [facility] Comment on above: Performed By: #### C VU, CP #### [address] [place] [address] Electrical Mechanic: Loretta Davis MD MCV (RBC) [Entitic vol] 93.0 fL Normal 82.6-102.9 [facility] Comment on above: Performed By: #### C VU, CP #### [address] [place], [place] [phone] Electrical Mechanic: Loretta Davis MD NRBC Automated 0.0 per 100 WBC Normal 0.0 [facility] Comment on above: Performed By: #### C VU, CP #### [address] [place], [place] [phone] Electrical Mechanic: Loretta Davis MD Platelet mean volume (Bld) [Entitic vol] 8.4 fL Normal 8.1-13.5 [facility] Comment on above: Performed By: #### C VU, CP #### [address] [place], [place] [phone] Electrical Mechanic: Loretta Davis MD Platelets (Bld) [#/Vol] 387 10*3/uL Normal 138-453 [facility] Comment on above: Performed By: #### C VU, CP #### [address] [place], [place] [phone] Electrical Mechanic: Loretta Davis MD RBC (Bld) [#/Vol] 3.98 10*6/uL Normal 3.95-5.11 [facility] Comment on above: Performed By: #### C VU, CP #### [facility] [address] [place] [address] Electrical Mechanic: Loretta Davis MD WBC (Bld) [#/Vol] 9.6 10*3/uL Normal 3.5-11.3 [facility] Comment on above: Performed By: #### C VU, CP #### [facility] [address] [place] [address] Electrical Mechanic: Loretta Davis MD Hematocrit (Bld) [Volume fraction] 37.0 % 36.3 - 47.1 % [facility] Hemoglobin (Bld) [Mass/Vol] 12.6 g/dL 11.9 - 15.1 g/dL [facility] MCH (RBC) [Entitic mass] 31.7 pg 25.2 - 33.5 pg [facility] MCHC (RBC) [Mass/Vol] 34.1 g/dL 28.4 - 34.8 g/dL [facility] MCV (RBC) [Entitic vol] 93.0 fL 82.6 - 102.9 fL [facility] NRBC Automated 0.0 0.0 per 100 WBC [facility] Platelet distribution width (Bld) [Ratio] 13.1 % 11.8 - 14.4 % [facility] Platelet mean volume (Bld) [Entitic vol] 8.4 fL 8.1 - 13.5 fL [facility] Platelets (Bld) [#/Vol] 387 10*3/uL [facility] RBC (Bld) [#/Vol] 3.98 10*6/uL 3.95 - 5.11 m/uL [facility] WBC (Bld) [#/Vol] 9.6 10*3/uL [facility] Comp Metabolic Profon 2022 Albumin [Mass/Vol] 4.1 g/dL Normal 3.5-5.2 [facility] Comment on above: Performed By: #### C BC, CP #### [facility] [address] [place], [place] [phone] Electrical Mechanic: Loretta Davis MD Albumin/Glob Ratio 1.6 Normal 1.0-2.5 [facility] Comment on above: Performed By: #### C BC, CP #### [facility] [address] [place], [place] [phone] Electrical Mechanic: Loretta Davis MD Alkaline Phos 68 U/L Normal 35-104 [facility] Comment on above: Performed By: #### C BC, CP #### [facility] [address] [place], [place] [phone] Electrical Mechanic: Loretta Davis MD ALT [Catalytic activity/Vol] 27 U/L Normal 5-33 [facility] Comment on above: Performed By: #### C BC, CP #### [facility] [address] [place], [place] 6847083 Electrical Mechanic: Loretta Davis MD Anion gap [Moles/Vol] 13 mmol/L Normal 9-[address] [facility] Comment on above: Performed By: #### C BC, CP #### [facility] [address] [place], [place] [phone] Electrical Mechanic: Loretta Davis MD AST [Catalytic activity/Vol] 19 U/L Normal <32 [facility] Comment on above: Performed By: #### C BC, CP #### [facility] [address] [place], [place] [phone] Electrical Mechanic: Loretta Davis MD Bilirubin [Mass/Vol] 0.2 mg/dL Low 0.3-1.2 [facility] Comment on above: Performed By: #### C BC, CP #### [facility] [address] [place], [place] 1477483 Electrical Mechanic: Loretta Davis MD BUN/CRE Ratio 31 High 9-20 [facility] Comment on above: Performed By: #### C VU, CP #### [facility] [address] [place], [place] 7873783 Electrical Mechanic: Loretta Davis MD Calcium [Mass/Vol] 9.6 mg/dL Normal 8.6-10.4 [facility] Comment on above: Performed By: #### C VU, CP #### [facility] [address] [place], [place] [phone] Electrical Mechanic: Loretta Davis MD Chloride [Moles/Vol] 91 mmol/L Low 98-107 [facility] Comment on above: Performed By: #### C VU, CP #### [facility] [address] [place], [place] [phone] Electrical Mechanic: Loretta Davis MD CO2 [Moles/Vol] 26 mmol/L Normal 20-31 [facility] Comment on above: Performed By: #### C VU, CP #### [facility] [address] [place], [place] [phone] Electrical Mechanic: Loretta Davis MD Creatinine [Mass/Vol] 0.65 mg/dL Normal 0.50-0.[address] [facility] Comment on above: Performed By: #### C VU, CP #### [facility] [address] [place], [place] [phone] Electrical Mechanic: Loretta Davis MD GFR/1.73 sq M.predicted among non-blacks MDRD (S/P/Bld) [Vol rate/Area] mL/min/{1.73_m2} Normal >60 [facility] Comment on above: Result Comment: These results [...] Performed By: #### C BC, CP #### [facility] [address] [place] [address] Electrical Mechanic: Loretta Davis MD Glucose [Mass/Vol] 125 mg/dL High 70-99 [facility] Comment on above: Performed By: #### C BC, CP #### [facility] [address] [place], [place] [phone] Electrical Mechanic: Loretta Davis MD Potassium [Moles/Vol] 4.3 mmol/L Normal 3.7-5.[address] [facility] Comment on above: Performed By: #### C BC, CP #### [facility] [address] [place], [place] [phone] Electrical Mechanic: Loretta Davis MD Protein [Mass/Vol] 6.7 g/dL Normal 6.4-8.3 [facility] Comment on above: Performed By: #### C BC, CP #### [facility] [address] [place], [place] [phone] Electrical Mechanic: Loretta Davis MD Sodium [Moles/Vol] 130 mmol/L Low 135-144 [facility] Comment on above: Performed By: #### C VU, CP #### [facility] [address] [place], [place] [phone] Electrical Mechanic: Loretta Davis MD Urea nitrogen [Mass/Vol] 20 mg/dL Normal 8-23 [facility] Comment on above: Performed By: #### C VU, CP #### [facility] [address] [place] [address] Electrical Mechanic: Loretta Davis MD Comprehensive Metabolic Pane [facility] 06-09-2022 Albumin [Mass/Vol] 4.1 g/dL 3.5 - 5.2 g/dL [facility] Albumin/Globulin [Mass ratio] 1.6 {ratio} 1.0 - 2.5 [facility] ALP [Catalytic activity/Vol] 68 U/L 35 - 104 U/L [facility] ALT [Catalytic activity/Vol] 27 U/L 5 - 33 U/L [facility] Anion gap [Moles/Vol] 13 mmol/L 9 - 17 mmol/L [facility] AST [Catalytic activity/Vol] 19 U/L NINF - 32 U/L [facility] Bilirubin [Mass/Vol] 0.2 mg/dL Low 0.3 - 1 .2 mg/dL [facility] Calcium [Mass/Vol] 9.6 mg/dL 8.6 - 10. 4 mg/dL [facility] Chloride [Moles/Vol] 91 mmol/L Low 98 - 10 7 mmol/L [facility] CO2 [Moles/Vol] 26 mmol/L 20 - 31 mmol/L [facility] Creatinine [Mass/Vol] 0.65 mg/dL 0.50 - 0.90 mg/dL [facility] GFR/1.73 sq M.predicted MDRD (S/P/Bld) [Vol rate/Area] - PINF [facility] Comment on above: These results are not [...] 125 mg/dL High 70 - 99 mg/dL [facility] Interpretation and review of laboratory results Abnormal [facility] Potassium [Moles/Vol] 4.3 mmol/L 3.7 - 5.3 mmol/L [facility] Protein [Mass/Vol] 6.7 g/dL 6.4 - 8.3 g/dL [facility] Sodium [Moles/Vol] 130 mmol/L Low 135 - 144 mmol/L [facility] Urea nitrogen [Mass/Vol] 20 mg/dL 8 - 23 mg/dL [facility] Urea nitrogen/Creatinine (Bld) [Mass ratio] 31 High 9 - 20 [facility] Microscopic Urinalysison Bacteria, UA 2+ Abnormal None [facility] Epithelial Cells UA 2 TO 5 [facility] Interpretation and review of laboratory results Abnormal [facility] Mucus, UA 1+ Abnormal None [facility] RBC clumps Auto (Urine sed) [#/Area] 10 TO 20 [facility] WBC, UA 10 TO 20 [facility] Urinalysison 06-07-2022 Bilirubin Urine Negative NEGATIVE [facility] Color, UA Yellow Yellow [facility] Glucose Auto test strip (U) [Mass/Vol] Negative NEGATIVE [facility] Interpretation and review of laboratory results Abnormal [facility] Ketones (U) [Mass/Vol] Negative NEGATIVE [facility] Leukocyte esterase Auto test strip Ql (U) SMALL Abnormal NEGATIVE [facility] Nitrite Auto test strip Ql (U) Negative NEGATIVE [facility] Protein (U) [Mass/Vol] 6.0 mg/dL 5.0 - 9.0 [facility] Protein (U) [Mass/Vol] 2+ Abnormal NEGATIVE [facility] Specific [place], UA 1.025 High 1.010 - 1.020 [facility] Turbidity UA Clear Clear [facility] Urine Hgb 2+ Abnormal NEGATIVE [facility] Urobilinogen, Urine Normal Normal [facility] Urinalysis, Routineon 2022 Bilirubin, SemiQt,Ur Negative Normal [facility] Comment on above: Performed By: #### U MICAO, UA #### [facility] [address] [place] [address] Electrical Mechanic: Loretta Davis MD Blood, Urine 2+ Abnormal NEG [facility] Comment on above: Performed By: #### U MICAO, UA #### [facility] [address] [place] [address] Electrical Mechanic: Loretta Davis MD Clarity (U) Clear Normal CLEAR [facility] Comment on above: Performed By: #### U MICAO, UA #### [facility] [address] [place], [place] [phone] Electrical Mechanic: Loretta Davis MD Color (U) Yellow Normal YEL [facility] Comment on above: Performed By: #### U MICAO, UA #### [facility] [address] [place], [place] [phone] Electrical Mechanic: Loretta Davis MD Glucose Ql (U) Negative Normal NEG [facility] Comment on above: Performed By: #### U MICAO, UA #### [facility] [address] [place] [address] Dr. [place], [place] [address]883 Electrical Mechanic: Loretta Davis MD Ketones Ql (U) Negative Normal NEG [facility] Comment on above: Performed By: #### U MICAO, UA #### [facility] [address] [place] [address] Dr. [place], [place] [phone] Electrical Mechanic: Loretta Davis MD Leukocyte esterase Test strip Ql (U) SMALL Abnormal NEG [facility] Comment on above: Performed By: #### U MICAO, UA #### [facility] [address] [place] [address] Dr. [place], [place] [phone] Electrical Mechanic: Loretta Davis MD Nitrite,Ur Negative Normal NEG [facility] Comment on above: Performed By: #### U MICAO, UA #### [facility] [address] [place], [place] [phone] Electrical Mechanic: Loretta Davis MD PH,Ur 6.0 Normal 5.0-9.0 [facility] Comment on above: Performed By: #### U MICAO, UA #### [facility] [address] [place], [place] [phone] Electrical Mechanic: Loretta Davis MD Protein Ql (U) 2+ Abnormal NEG [facility] Comment on above: Performed By: #### U MICAO, UA #### [facility] [address] [place], [place] 3402583 Electrical Mechanic: Loretta Davis MD Spec. [place],Ur 1.025 High 1.010-1.02 0 [facility] Comment on above: Performed By: #### U MICAO, UA #### [facility] [address] [place], [place] [phone] Electrical Mechanic: Loretta Davis MD Urobilinogen,Ur Normal Normal NORM [facility] Comment on above: Performed By: #### U MICAO, UA #### [facility] [address] [place], [place] [phone] Electrical Mechanic: Loretta Davis MD Urinalysis,Microon 3 Bacteria 2+ Abnormal NONE [facility] Comment on above: Performed By: #### U MICAO, UA #### [facility] [address] [place] [address] Dr. [place], [place] [phone] Electrical Mechanic: Loretta Davis MD Epithelial cells LM Ql (Urine sed) 2 TO 5 Normal 0-25 [facility] Comment on above: Performed By: #### U MICAO, UA #### [facility] [address] [place] [address] Dr. [place], [place] [phone] Electrical Mechanic: Loretta Davis MD Mucus Strands 1+ Abnormal [facility] Comment on above: Performed By: #### U MICAO, UA #### [facility] [address] [place], [place] [phone] Electrical Mechanic: Loretta Davis MD Urine RBC's 10 TO 20 Normal 0-2 [facility] Comment on above: Performed By: #### U MICAO, UA #### [facility] [address] [place], [place] [phone] Electrical Mechanic: Loretta Davis MD Urine WBC's 10 TO 20 Normal 0-5 [facility] Comment on above: Performed By: #### U MICAO, UA #### [facility] [address] [place] [address] Electrical Mechanic: Loretta Davis MD COVID-19 Antigenon 3 COVID-19 [...] developed and its performance characteristic determined by [employer] and validated at [facility]. This test has not been FDA cleared [...] for SARS Antigen by YANELY PERFORMED BY: [facility] [place] [address] PATHOLOGIST SENIOR SALES REPRESENTATIVE LILLY LOTT M.D. [facility] Comment on above: Performed By: #### S OFIANEG, COVID-19 KATELYN #### [facility] [address] [place] [address] [place] Katelyn Ag Negativeon 06-04-19 Katelyn Ag Negative Negative Normal Negative [facility] Comment on above: Result Comment: This is a duplicate Katelyn SARS Antigen (YANELY) result to be used for statistical tracking purpose only. PERFORMED BY: [facility] [address] [place] [address] PATHOLOGIST SENIOR SALES REPRESENTATIVE LILLY LOTT M.D. Performed By: #### S OFIANEG, COVID-19 KATELYN #### [facility] [address] [id number] [facility] Albumin [Mass/volume] in Bod y fluidOrdered By: Tatianna Hilario on 06-02-2022 Albumin (Body fld) [Mass/Vol] 3.9 g/dL 3.2-5.5 [facility] Alkaline phosphatase [Enzyma tic activity/volume] in Serum or PlasmaOrdered By: Tatianna Hilario on 06-02-2022 ALP [Catalytic activity/Vol] 59 U/L 32-92 [facility] Amphetamine Screen Ql (U)Ord ered By: Tatianna Hilario on 06-02-2022 Amphetamines Ql (U) Negative Negative [facility] Aspartate aminotransferase [ Enzymatic activity/volume] in Serum or PlasmaOrdered By: Tatianna Hilario on 06-02-2022 AST [Catalytic activity/Vol] 25 U/L 10-42 [facility] Barbiturates [Presence] in U rineOrdered By: Tatianna Hilario on 06-02-2022 Barbiturates Ql (U) Negative Negative [facility] Basophils Auto (Bld) [#/Vol] Ordered By: Tatianna Hilario on 06-02-2022 Basophils (Bld) [#/Vol] 0.0 10*3/uL 0.0-0.2 [facility] Basophils/100 WBC Auto (Bld) Ordered By: Tatianna Hilario on 06-02-2022 Basophils/100 WBC (Bld) 0.6 % . [facility] Benzodiazepines [Presence] i n UrineOrdered By: Tatianna Hilario on 06-02-2022 Benzodiazepines Ql (U) Positive Negative [facility] Bilirubin Test strip Ql (U)O rdered By: Tatianna Hilario on 06-02-2022 Bilirubin Ql (U) Negative Negative [facility] Bilirubin.total [Mass/volume ] in Serum or PlasmaOrdered By: Tatianna Hilario on 06-02-2022 Bilirubin [Mass/Vol] 0.3 mg/dL 0.3-1.2 [facility] COVID-19 SOFIAOrdered By: Sachin Oro on 06-02-2022 SARS-CoV+SARS-CoV-2 (COVID-19) Ag IA.rapid Ql (Resp) Negative Negative [facility] Comment on above: This is a duplicate Katelyn SARS Antigen (YANELY) result to be used for statistical tracking purpose only. Calcium [Mass/volume] in Ser um or PlasmaOrdered By: Tatianna Hilario on 06-02-2022 Calcium [Mass/Vol] 9.6 mg/dL 8.2-10.2 [facility] Cannabinoids [Presence] in U rine by Screen methodOrdered By: Tatianna Hilario on 06-02-2022 Cannabinoids Screen Ql (U) Negative Negative [facility] Comment on above: These are unconfirme d results and should not be used for legal purposes. Drug Cut-Off Concentration: AMPH 1000 ng/mL CESAR 200 ng/mL DIONNE 200 ng/mL COCM 300 ng/mL OP 300 ng/mL PCP 25 ng/mL THC 20 ng/mL Carbon dioxide, total [Moles /volume] in Serum or PlasmaOrdered By: Tatianna Hilario on 06-02-2022 CO2 [Moles/Vol] 24.5 mmol/L 22.0-30.[address] [facility] Chloride [Moles/volume] in S vasquez or PlasmaOrdered By: Tatianna Hilario on 06-02-2022 Chloride [Moles/Vol] 94 mmol/L 95-114 [facility] Color Auto (U)Ordered By: Shahid Hilario on 06-02-2022 Color (U) Yellow Yellow [facility] Complete Blood Count Auto Di ffon 06-02-2022 Basophils (Bld) [#/Vol] 0.0 10*3/uL Normal 0.0-0.2 [facility] Comment on above: Result Comment: PERF ORMED BY: [place] [address] PATHOLOGIST SENIOR SALES REPRESENTATIVE LILLY LOTT M.D. Performed By: #### S OFIANEG, COVID-19 KATELYN #### [facility] [address] [place] [address] Basophils/100 WBC (Bld) 0.6 % Normal . [facility] Comment on above: Performed By: #### S OFIANEG, COVID-19 KATELYN #### [address] Eosinophils (Bld) [#/Vol] 0.1 10*3/uL Normal 0.0-0.45 [facility] Comment on above: Performed By: #### S OFIANEG, COVID-19 KATELYN #### [address] Eosinophils/100 WBC (Bld) 0.8 % Normal . [facility] Comment on above: Performed By: #### S OFIANEG, COVID-19 KATELYN #### [facility] [address] [place] [address] Erythrocyte distribution width (RBC) [Ratio] 13.4 % Normal 11.9-15.3 [facility] Comment on above: Performed By: #### S OFIANEG, COVID-19 KATELYN #### [facility] [address] [place] [address] Hematocrit (Bld) [Volume fraction] 39.4 % Normal 34.0-46.4 [facility] Comment on above: Performed By: #### S OFIANEG, COVID-19 KATELYN #### [facility] [address] [place] [address] Hemoglobin (Bld) [Mass/Vol] 12.8 g/dL Normal 11.8-15.4 [facility] Comment on above: Performed By: #### S OFIANEG, COVID-19 KATELYN #### [address] [place] [address] [place] Lymphocytes (Bld) [#/Vol] 1.8 10*3/uL Normal 1.00-4.8 [facility] Comment on above: Performed By: #### S DIONNE YADAVID-19 KATELYN #### [address] Lymphocytes/100 WBC (Bld) 23.6 % Normal . [facility] Comment on above: Performed By: #### S DIONNE YADAVID-19 KATELYN #### [address] MCH (RBC) [Entitic mass] 29.7 pg Normal 24.7-34.3 [facility] Comment on above: Performed By: #### S DIONNE YADAVID-19 KATELYN #### [address] MCV (RBC) [Entitic vol] 91.6 fL Normal 80-100 [facility] Comment on above: Performed By: #### S DIONNE YADAVID-19 KATELYN #### [address] Mean Corpuscular HGB Conc 32.4 g/dL Normal 32.0-35.0 [facility] Comment on above: Performed By: #### S DIONNE YADAVID-19 KATELYN #### [address] Monocytes (Bld) [#/Vol] 0.5 10*3/uL Normal 0.0-0.8 [facility] Comment on above: Performed By: #### S VICENTA COVID-19 KATELYN #### [place] [address] [place] Monocytes/100 WBC (Bld) 18.48 % Normal 0.00-20.00 [facility] Comment on above: Performed By: #### S VICENTA COVID-19 KATELYN #### [place] [address] [place] Monocytes/100 WBC (Bld) 6.0 % Normal . [facility] Comment on above: Performed By: #### S DIONNE YADAVID-19 KATELYN #### [facility] [address] [place] [address] Neutrophils (Bld) [#/Vol] 5.3 10*3/uL Normal 1.8-7.7 [facility] Comment on above: Performed By: #### S VICENTA COVID-19 KATELYN #### [address] Neutrophils/100 WBC (Bld) 69.0 % Normal . [facility] Comment on above: Performed By: #### S DIONNE YADAVID-19 KATELYN #### [facility] [address] [place] [address] NRBC% 0.1 /100{WBC} Normal 0-0.5 [facility] Comment on above: Performed By: #### S DIONNE YADAVID-19 KATELYN #### [facility] [address] [place] [address] Platelet mean volume (Bld) [Entitic vol] 6.5 fL Normal 6.3-10.7 [facility] Comment on above: Performed By: #### S VICENTA COVID- KATELYN #### [facility] [address] [place] [address] [place] Platelets (Bld) [#/Vol] 372 10*3/uL Normal 150-450 [facility] Comment on above: Performed By: #### S DIONNE YADAVID-19 KATELYN #### [facility] [address] [place] [address] [place] RBC (Bld) [#/Vol] 4.31 10*6/uL Normal 3.60-5.00 [facility] Comment on above: Performed By: #### S VICENTA COVID-19 KATELYN #### [facility] [address] [place] [address] WBC (Bld) [#/Vol] 7.6 10*3/uL Normal 3.8-11.6 [facility] Comment on above: Performed By: #### S OFSANDRA COVID-19 KATELYN #### [facility] [address] [place] [address] Comprehensive Metabolic Pane alcides 06-02-2022 Albumin [Mass/Vol] 3.9 g/dL Normal 3.2-5.5 [facility] Comment on above: Performed By: #### S OFSANDRA COVID-19 KATELYN #### [address] Albumin/Globulin [Mass ratio] 1.4 {ratio} Normal [facility] Comment on above: Performed By: #### S OFSANDRA COVID-19 KATELYN #### [address] ALP [Catalytic activity/Vol] 59 U/L Normal 32-92 [facility] Comment on above: Performed By: #### S OFSANDRA COVID-19 KATELYN #### [address] ALT [Catalytic activity/Vol] 37 U/L Normal 10-60 [facility] Comment on above: Performed By: #### S OFSANDRA COVID-19 KATELYN #### [address] Anion gap [Moles/Vol] 16.8 mmol/L High 6.0-15.0 [facility] Comment on above: Performed By: #### S OFSANDRA COVID-19 KATELYN #### [address] AST [Catalytic activity/Vol] 25 U/L Normal 10-42 [facility] Comment on above: Performed By: #### S VICENTA COVID-19 KATELYN #### [address] Bilirubin [Mass/Vol] 0.3 mg/dL Normal 0.3-1.2 [facility] Comment on above: Performed By: #### S OFSANDRA COVID-19 KATELYN #### [facility] [address] [place] [address] [place] Calcium [Mass/Vol] 9.6 mg/dL Normal 8.2-10.2 [facility] Comment on above: Performed By: #### S VICENTA COVID-19 KATELYN #### [facility] [address] [place] [address] [place] Chloride [Moles/Vol] 94 mmol/L Low 95-114 [facility] Comment on above: Performed By: #### S OFSANDRA COVID-19 KATELYN #### [facility] [address] [place] [address] [place] CO2 [Moles/Vol] 24.5 mmol/L Normal 22.0-30.[address] [facility] Comment on above: Performed By: #### S VICENTA COVID-19 KATELYN #### [facility] [address] [place] [address] [place] Creatinine [Mass/Vol] 0.70 mg/dL Normal 0.44-1.03 [facility] Comment on above: Performed By: #### S VICENTA COVID-19 KATELYN #### [facility] [address] [place] [address] [place] Creatinine Clr Calc Pharmacy 53.85 [facility] Comment on above: Result Comment: PERF ORMED BY: [place] [address] PATHOLOGIST SENIOR SALES REPRESENTATIVE LILLY LOTT M.D. Performed By: #### S VICENTA COVID-19 KATELYN #### [facility] [address] [place] [address] [place] Estimated GFR ( Meenu > 60 [facility] Comment on above: Result Comment: GFR estimated reference range: According to KDOQI guidelines, <60 ml/min/1.73m2 is sufficient to diagnose a patient with chronic kidney disease. Performed By: #### S VICENTA COVID-19 KATELYN #### [facility] [address] [place] [address] [place] Estimated GFR (Non- Am > 60 Normal [facility] Comment on above: Performed By: #### S VICENTA COVID-19 KATELYN #### [facility] [address] [place] [address] [place] Globulin (S) [Mass/Vol] 2.8 g/dL Normal [facility] Comment on above: Performed By: #### S VICENTA COVID-19 KATELYN #### [facility] [address] [place] [address] [place] Glucose [Mass/Vol] 138 mg/dL High 70-100 [facility] Comment on above: Result Comment: [facility] Glucose Reference Range is dependent on time and content of last meal. Glucose of more than 200 mg/dL in a nonstressed, ambulatory subject supports the diagnosis of Diabetes Mellitus. ADA recommended reference range Performed By: #### S VICENTA COVID-19 KATELYN #### [facility] [address] [place] [address] [place] Potassium [Moles/Vol] 4.3 mmol/L Normal 3.5-5.1 [facility] Comment on above: Performed By: #### S VICENTA COVID-19 KATELYN #### [facility] [address] [place] [address] [place] Protein [Mass/Vol] 6.7 g/dL Normal 6.1-7.9 [facility] Comment on above: Performed By: #### S VICENTA COVID-19 KATELYN #### [facility] [address] [place] [id number] [place] Sodium [Moles/Vol] 131 mmol/L Low 136-146 [facility] Comment on above: Performed By: #### S VICENTA COVID-19 KATELYN #### [facility] [address] [place] [id number] [place] Urea nitrogen [Mass/Vol] 14 mg/dL Normal 9-23 [facility] Comment on above: Performed By: #### S VICENTA COVID-19 KATELYN #### [facility] [address] [place] [id number] [place] Creatinine and Glomerular fi ltration rate.predicted panel (S/P/Bld)Ordered By: Tatianna Hilario on 06-02-2022 Creatinine [Mass/Vol] 0.70 mg/dL 0.44-1.03 [facility] Drug Screen,Urineon 06-02-19 Amphetamine Screen,Urine Negative Normal Negative [facility] Comment on above: Performed By: #### C K, CRP, CMP, CBC, ESR, TSH3 #### [facility] [address] [place] [address] [place] #### ALDOLASE #### [facility] , Barbiturate Screen,Urine Negative Normal Negative [facility] Comment on above: Performed By: #### C K, CRP, CMP, CBC, ESR, TSH3 #### [facility] [address] [place] [address] [place] #### ALDOLASE #### [facility] , Benzodiazepines Screen,Urine Positive High Negative [facility] Comment on above: Performed By: #### C K, CRP, CMP, CBC, ESR, TSH3 #### [address] #### ALDOLASE #### [facility] , Cannabinoid Screen,Urine Negative Normal Negative [facility] Comment on above: Result Comment: Thes e are unconfirmed results and should not be used for legal purposes. Drug Cut-Off Concentration: AMPH 1000 ng/mL CESAR 200 ng/mL DIONNE 200 ng/mL COCM 300 ng/mL OP 300 ng/mL PCP 25 ng/mL THC 20 ng/mL PERFORMED BY: [place] [address] PATHOLOGIST SENIOR SALES REPRESENTATIVE LILLY LOTT M.D. Performed By: #### C K, CRP, CMP, CBC, ESR, TSH3 #### [facility] [address] [place] [address] [place] #### ALDOLASE #### [facility] , Cocaine Screen,Urine Negative Normal Negative [facility] Comment on above: Performed By: #### C K, CRP, CMP, CBC, ESR, TSH3 #### [facility] [address] [place] [address] [place] #### ALDOLASE #### [facility] , Opiate Screen,Urine Negative Normal Negative [facility] Comment on above: Performed By: #### C K, CRP, CMP, CBC, ESR, TSH3 #### [facility] [address] [place] [address] [place] #### ALDOLASE #### [facility] , Phencyclidine Screen,Urine Negative Normal Negative [facility] Comment on above: Performed By: #### C K, CRP, CMP, CBC, ESR, TSH3 #### [facility] [address] [place] [address] [place] #### ALDOLASE #### [facility] , Eosinophils Auto (Bld) [#/Vo l]Ordered By: Tatianna Hilario on 06-02-2022 Eosinophils (Bld) [#/Vol] 0.1 10*3/uL 0.0-0.45 [facility] Eosinophils/100 WBC Auto (Bl d)Ordered By: Tatianna Hilario on 06-02-2022 Eosinophils/100 WBC (Bld) 0.8 % . [facility] Erythrocyte distribution wid th Auto (RBC) [Ratio]Ordered By: Tatianna Hilario on 06-02-2022 Erythrocyte distribution width (RBC) [Ratio] 13.4 % 11.9-15.3 [facility] Estimated glomerular filtrat ion rate (GFR) non- AmericanOrdered By: Tatianna Hilario on 06-02-2022 GFR/1.73 sq M.predicted among non-blacks MDRD (S/P/Bld) [Vol rate/Area] > 60 mL/Min [facility] Ethanol [Mass/volume] in Ser um or PlasmaOrdered By: Tatianna Hilario on 06-02-2022 Ethanol [Mass/Vol] mg/dL [facility] Ethanol [Mass/Vol] TNP [facility] Comment on above: Test not performed Ethyl Alcohol Profileon 05-07 Ethanol [Mass/Vol] mg/dL Normal [facility] Comment on above: Performed By: #### S OFIANEG, COVID-19 KATELYN #### [facility] [address] Percent Ethanol Not performed Normal [facility] Comment on above: Result Comment: PERF ORMED BY: [facility] [address] [facility] [place] [address] PATHOLOGIST SENIOR SALES REPRESENTATIVE LILLY LOTT M.D. Performed By: #### S OFIANEG, COVID-19 KATELYN #### [facility] [address] [place] [address] [place] Globulin Calc (S) [Mass/Vol] Ordered By: Tatianna Hilario on 06-02-2022 Globulin (S) [Mass/Vol] 2.8 g/dL [facility] Glucose [Mass/volume] in Ser um or PlasmaOrdered By: Tatianna Hilario on 06-02-2022 Glucose [Mass/Vol] 138 mg/dL 70-100 [facility] Comment on above: ADA recommended refe rence rangeRandom Glucose Reference Range is dependent on time and content of last meal. Glucose of more than 200 mg/dL in a nonstressed, ambulatory subject supports the diagnosis of Diabetes Mellitus. Hematocrit Auto (Bld) [Volum e fraction]Ordered By: Tatianna Hilario on 06-02-2022 Hematocrit (Bld) [Volume fraction] 39.4 % 34.0-46.4 [facility] Hemoglobin [Mass/volume] in BloodOrdered By: Tatianna Hilario on 06-02-2022 Hemoglobin (Bld) [Mass/Vol] 12.8 g/dL 11.8-15.4 [facility] Ketones Auto test strip (U) [Mass/Vol]Ordered By: Tatianna Hilario on 06-02-2022 Ketones (U) [Mass/Vol] Negative Negative [facility] Laboratory - Drug toxicology Ordered By: Tatianna Hilario on 06-02-2022 Opiates Ql (U) Negative Negative [facility] Leukocytes [#/volume] correc marlen for nucleated erythrocytes in Blood by Automated counOrdered By: Tatianna Hilario on 02-28-2023 WBC corrected for nucl RBC Auto (Bld) [#/Vol] 7.6 10*3/uL 3.8-11.6 [facility] Lymphocytes Auto (Bld) [#/Vo l]Ordered By: Tatianna Hilario on 06-02-2022 Lymphocytes (Bld) [#/Vol] 1.8 10*3/uL 1.00-4.8 [facility] Lymphocytes/100 WBC Auto (Bl d)Ordered By: Tatianna Hilario on 06-02-2022 Lymphocytes/100 WBC (Bld) 23.6 % . [facility] MCH Auto (RBC) [Entitic mass ]Ordered By: Tatianna Hilario on 06-02-2022 MCH (RBC) [Entitic mass] 29.7 pg 24.7-34.3 [facility] MCHC Auto (RBC) [Mass/Vol]Or dered By: aTtianna Hilario on 06-02-2022 MCHC (RBC) [Mass/Vol] 32.4 g/dL 32.0-35.0 [facility] MCV Auto (RBC) [Entitic vol] Ordered By: Tatianna Hilario on 06-02-2022 MCV (RBC) [Entitic vol] 91.6 fL 80-100 [facility] Monocyte distribution width [Entitic volume] in Blood by AutomatedOrdered By: Tatianna Hilario on 06-02-2022 Monocyte distribution width Auto (Bld) [Entitic vol] 18.48 % 0.00-20.00 [facility] Monocytes Auto (Bld) [#/Vol] Ordered By: Tatianna Hilario on 06-02-2022 Monocytes (Bld) [#/Vol] 0.5 10*3/uL 0.0-0.8 [facility] Monocytes/100 WBC Auto (Bld) Ordered By: Tatianna Hilario on 06-02-2022 Monocytes/100 WBC (Bld) 6.0 % . [facility] Neutrophils Auto (Bld) [#/Vo l]Ordered By: Tatianna Hilario on 06-02-2022 Neutrophils (Bld) [#/Vol] 5.3 10*3/uL 1.8-7.7 [facility] Neutrophils/100 WBC Auto (Bl d)Ordered By: Tatianna Hilario on 06-02-2022 Neutrophils/100 WBC (Bld) 69.0 % . [facility] Nitrite Test strip Ql (U)Ord ered By: Tatianna Hilario on 06-02-2022 Nitrite Ql (U) Negative Negative [facility] No Panel InformationOrdered By: Anna Oro on 06-02-2022 SARS Antigen (LFIA) [facility] SARS Antigen (LFIA) [facility] No Panel InformationOrdered By: Tatianna Hilario on 06-02-2022 Estimated GFR () > 60 mL/Min [facility] Comment on above: GFR estimated refere nce range: According to KDOQI guidelines, <60 ml/min/1.73m2 is sufficient to diagnose a patient with chronic kidney disease. Pharmacy Creatinine Clearance (Chem 53.85 [facility] Nucleated erythrocytes [Pres ence] in Blood by Automated countOrdered By: Tatianna Hilario on 06-02-2022 Nucleated RBC Auto Ql (Bld) 0.1 /100{WBC} 0-0.5 [facility] Phencyclidine Screen Ql (U)O rdered By: Tatianna Hilario on 06-02-2022 Phencyclidine Ql (U) Negative Negative [facility] Platelet mean volume Auto (B ld) [Entitic vol]Ordered By: Tatianna Hilario on 06-02-2022 Platelet mean volume (Bld) [Entitic vol] 6.5 fL 6.3-10.7 [facility] Platelets Auto (Bld) [#/Vol] Ordered By: Tatianna Hilario on 06-02-2022 Platelets (Bld) [#/Vol] 372 10*3/uL 150-450 [facility] Potassium [Moles/volume] in Serum or PlasmaOrdered By: Tatianna Hilario on 06-02-2022 Potassium [Moles/Vol] 4.3 mmol/L 3.5-5.1 [facility] Protein Auto test strip (U) [Mass/Vol]Ordered By: Tatianna Hilario on 06-02-2022 Protein (U) [Mass/Vol] Negative Negative [facility] Protein [Mass/volume] in Ser um or PlasmaOrdered By: Tatianna Hilario on 06-02-2022 Protein [Mass/Vol] 6.7 g/dL 6.1-7.9 [facility] RBC Auto (Bld) [#/Vol]Ordere d By: Tatianna Hilario on 06-02-2022 RBC (Bld) [#/Vol] 4.31 10*6/uL 3.60-5.00 [facility] Serum or plasma alanine gomez otransferase measurement without P-5'-P (enzymatic activiOrdered By: Tatianna Hilario on 06-02-2022 ALT No additional P-5'-P [Catalytic activity/Vol] 37 U/L 10-60 [facility] Serum or plasma albumin/glob ulin mass ratioOrdered By: Tatianna Hilario on 06-02-2022 Albumin/Globulin [Mass ratio] 1.4 {ratio} [facility] Serum or plasma anion gap de terminationOrdered By: Tatianna Hilario on 06-02-2022 Anion gap [Moles/Vol] 16.8 mmol/L 6.0-15.0 [facility] Sodium [Moles/volume] in Ser um or PlasmaOrdered By: Tatianna Hilario on 06-02-2022 Sodium [Moles/Vol] 131 mmol/L 136-146 [facility] Specific gravity Auto test s trip (U) [Rel density]Ordered By: Tatianna Hilario on 06-02-2022 Specific gravity (U) [Rel density] 1.005 1.001-1.03 0 [facility] Urea nitrogen [Mass/volume] in Serum or PlasmaOrdered By: Tatianna Hilario on 06-02-2022 Urea nitrogen [Mass/Vol] 14 mg/dL 9- [facility] Urinalysison 06-02-2022 Appearance (U) Clear Normal Clear [facility] Comment on above: Order Comment: Name Collection Type:: Clean-Voided Midstream Performed By: #### C K, CRP, CMP, CBC, ESR, TSH3 #### [facility] [address] #### ALDOLASE #### [facility] , Bilirubin,Urine Negative Normal Negative [facility] Comment on above: Order Comment: Name Collection Type:: Clean-Voided Midstream Performed By: #### C K, CRP, CMP, CBC, ESR, TSH3 #### [facility] [address] [place] [address] #### ALDOLASE #### [facility] , Color (U) Yellow Normal Yellow [facility] Comment on above: Order Comment: Name Collection Type:: Clean-Voided Midstream Performed By: #### C K, CRP, CMP, CBC, ESR, TSH3 #### [facility] [address] [place] [address] #### ALDOLASE #### [facility] , Glucose Ql (U) Normal Normal Normal [facility] Comment on above: Order Comment: Name Collection Type:: Clean-Voided Midstream Performed By: #### C K, CRP, CMP, CBC, ESR, TSH3 #### [facility] [address] [place] [address] #### ALDOLASE #### [facility] , Ketones Ql (U) Negative Normal Negative [facility] Comment on above: Order Comment: Name Collection Type:: Clean-Voided Midstream Performed By: #### C K, CRP, CMP, CBC, ESR, TSH3 #### [facility] [address] [place] [address] #### ALDOLASE #### [facility] , Leukocyte esterase Test strip Ql (U) Negative Normal Negative [facility] Comment on above: Order Comment: Name Collection Type:: Clean-Voided Midstream Performed By: #### C K, CRP, CMP, CBC, ESR, TSH3 #### [facility] [address] [place] [address] [place] #### ALDOLASE #### [facility] , Nitrite,Urine Negative Normal Negative [facility] Comment on above: Order Comment: Name Collection Type:: Clean-Voided Midstream Performed By: #### C K, CRP, CMP, CBC, ESR, TSH3 #### [facility] [address] [place] [address] #### ALDOLASE #### [facility] , Occult Blood,Urine Negative Normal Negative [facility] Comment on above: Order Comment: Name Collection Type:: Clean-Voided Midstream Result Comment: PERF ORMED BY: [place] [address] PATHOLOGIST SENIOR SALES REPRESENTATIVE LILLY LOTT M.D. Performed By: #### C K, CRP, CMP, CBC, ESR, TSH3 #### [address] #### ALDOLASE #### [facility] , pH (U) 6.5 [pH] Normal 5.0-9.0 [facility] Comment on above: Order Comment: Name Collection Type:: Clean-Voided Midstream Performed By: #### C K, CRP, CMP, CBC, ESR, TSH3 #### [address] #### ALDOLASE #### [facility] , Protein,Urine Negative Normal Negative [facility] Comment on above: Order Comment: Name Collection Type:: Clean-Voided Midstream Performed By: #### C K, CRP, CMP, CBC, ESR, TSH3 #### [facility] [address] [place] [address] #### ALDOLASE #### [facility] , Specificy [place],Urine 1.005 Normal 1.001-1.03 0 [facility] Comment on above: Order Comment: Name Collection Type:: Clean-Voided Midstream Performed By: #### C K, CRP, CMP, CBC, ESR, TSH3 #### [address] #### ALDOLASE #### [facility] , Urobilinogen,Urine Normal Normal Normal [facility] Comment on above: Order Comment: Name Collection Type:: Clean-Voided Midstream Performed By: #### C K, CRP, CMP, CBC, ESR, TSH3 #### [facility] [address] [place] [address] [place] #### ALDOLASE #### [facility] , Urine clarity by refractomet ry automatedOrdered By: Tatianna Hilario on 06-02-2022 Clarity Refractometry automated (U) Clear Clear [facility] Urine cocaine detectionOrder ed By: Tatianna Hilario on 06-02-2022 Cocaine Ql (U) Negative Negative [facility] Urine glucose measurement by automated test strip (mass/volume)Ordered By: Tatianna Hilario on 06-02-2022 Glucose Auto test strip (U) [Mass/Vol] Normal mg/dL Normal [facility] Urine hemoglobin detection b y automated test stripOrdered By: Tatianna Hilario on 06-02-2022 Hemoglobin Auto test strip Ql (U) Negative Negative [facility] Urine leukocyte esterase det ection by automated test stripOrdered By: Tatianna Hilario on 06-02-2022 Leukocyte esterase Auto test strip Ql (U) Negative Negative [facility] Urobilinogen Auto test strip (U) [Mass/Vol]Ordered By: Tatianna Hilario on 06-02-2022 Urobilinogen (U) [Mass/Vol] Normal mg/dL Normal [facility] WBC Auto (Bld) [#/Vol]Ordere d By: Tatianna Hilario on 06-02-2022 WBC (Bld) [#/Vol] 7.6 10*3/uL 3.8-11.6 [facility] pH Auto test strip (U)Ordere d By: Tatianna Hilario on 06-02-2022 pH (U) 6.5 [pH] 5.0-9.0 [facility] CULTURE URINEon 05-20-2022 CULTURE URINE Culture Observations : LIGHT GROWTH OF MIXED GENITAL JAVON. NO POTENTIAL PATHOGENS SEEN. Normal [facility] Comment on above: Performed By: #### L IPID, BMP, NA #### [facility] [address] [address] [address] Dilip Cartagena CULTURE URINEon 05-08-2022 CULTURE [...] F Nitrofurantoin <=16 S F Normal [facility] Comment on above: Performed By: #### L IPID, BMP, NA #### [facility] [address] [address] [address] Dilip Cartagena LUIS ENRIQUE Antinuclear Antibodieson 05-05-2022 Antinuclear Abs, IFA Positive Critically abnormal . [facility] Comment on above: Result Comment: Nega tive <1:80 Borderline 1:80 Positive >1:80 Performed By: #### S VICENTA, COVID-19 KATELYN #### [facility] [address] Note 1 Normal . [facility] Comment on above: Result Comment: For [...] titers Nucleosomes, Histones Drug-induced SLE Speckled Sm, WOOD GRAINER, SCL-70, SLE,MCTD,PSS (diffuse form), SS-A/SS-B Sjogrens Nucleolar SCL-70, PM-1/SCL High titers Scleroderma, PM/DM Centromere Centromere PSS (limited form) w/Crest syndrome variable Nuclear Dot [id number] Primary Biliary Cirrhosis Nuclear GP210, Primary Biliary Cirrhosis Membrane ban A,B,C Performed at: [address] [id number] Electrical Mechanic: Reggie Lazcano PhD, Phone: [phone] PERFORMED BY: [place] [address] PATHOLOGIST SENIOR SALES REPRESENTATIVE LILLY LOTT M.D. Performed By: #### S VICENTA COVID-19 KATELYN #### [address] Speckled Pattern 1:[address] [facility] Comment on above: Result Comment: ICAP nomenclature: AC-2,4,5,29 Performed By: #### S VICENTA COVID-19 KATELYN #### [address] Aldolaseon 05-05-2022 Aldolase 7.8 U/L Normal 3.3-10.3 [facility] Comment on above: Result Comment: Perf ormed at: [address] [id number] Electrical Mechanic: Reggie Lazcano PhD, Phone: [phone] PERFORMED BY: [place] [address] PATHOLOGIST SENIOR SALES REPRESENTATIVE LILLY LOTT M.D. Performed By: #### C K, CRP, CMP, CBC, ESR, TSH3 #### [facility] [address] [place] [address] #### ALDOLASE #### [facility] , Angiotensin Converting Enzym adelia 05-05-2022 Angiotensin converting enzyme [Catalytic activity/Vol] U/L Normal 14-82 [facility] Comment on above: Result Comment: Perf ormed at: [address] [id number] Electrical Mechanic: Regige Lazcano PhD, Phone: [phone] Performed By: #### S OFHUSSAINEG, COVID-19 KATELYN #### [facility] [address] [place] [address] Basophils Auto (Bld) [#/Vol] Ordered By: Johann Dolan on 05-05-2022 Basophils (Bld) [#/Vol] 0.1 10*3/uL 0.0-0.2 [facility] Basophils/100 WBC Auto (Bld) Ordered By: Johann Dolan on 05-05-2022 Basophils/100 WBC (Bld) 0.7 % . [facility] Body fluid albumin measureme nt (mass/volume)Ordered By: Johann Dolan on 05-05-2022 Albumin (Body fld) [Mass/Vol] 4.6 g/dL 3.2-5.5 [facility] C reactive protein [Mass/vol ume] in Serum or PlasmaOrdered By: Johann Dolan on 05-05-2022 CRP [Mass/Vol] mg/L 0-10 [facility] Comment on above: Performed at: [address] [id number] Director: Reggie Lazcano PhD, Phone: [phone] C-Reactive Proteinon 023 C-Reactive Protein 0.6 mg/dL Normal 0.0-1.0 [facility] Comment on above: Performed By: #### C K, CRP, CMP, CBC, ESR, TSH3 #### [facility] [address] [place] [address] #### ALDOLASE #### [facility] , CT biopsyOrdered By: Johann Dolan on 05-05-2022 CT biopsy 7.8 U/L 3.3-10.3 [facility] Comment on above: Performed at: [facility] [place] [id number] Director: Reggie Lazcano PhD, Phone: [phone] Complete Blood Count Auto Di ffon 05-05-2022 Basophils (Bld) [#/Vol] 0.1 10*3/uL Normal 0.0-0.2 [facility] Comment on above: Performed By: #### C K, CRP, CMP, CBC, ESR, TSH3 #### [place] [address] [place] #### ALDOLASE #### [facility] , Basophils/100 WBC (Bld) 0.7 % Normal . [facility] Comment on above: Performed By: #### C K, CRP, CMP, CBC, ESR, TSH3 #### [place] [address] [place] #### ALDOLASE #### [facility] , Eosinophils (Bld) [#/Vol] 0.1 10*3/uL Normal 0.0-0.45 [facility] Comment on above: Performed By: #### C K, CRP, CMP, CBC, ESR, TSH3 #### [place] [address] [place] #### ALDOLASE #### [facility] , Eosinophils/100 WBC (Bld) 0.7 % Normal . [facility] Comment on above: Performed By: #### C K, CRP, CMP, CBC, ESR, TSH3 #### [place] [address] [place] #### ALDOLASE #### [facility] , Erythrocyte distribution width (RBC) [Ratio] 13.9 % Normal 11.9-15.3 [facility] Comment on above: Performed By: #### C K, CRP, CMP, CBC, ESR, TSH3 #### [place] [address] [place] #### ALDOLASE #### [facility] , Hematocrit (Bld) [Volume fraction] 40.3 % Normal 34.0-46.4 [facility] Comment on above: Performed By: #### C K, CRP, CMP, CBC, ESR, TSH3 #### [place] [place] [address] [place] #### ALDOLASE #### [facility] , Hemoglobin (Bld) [Mass/Vol] 13.1 g/dL Normal 11.8-15.4 [facility] Comment on above: Performed By: #### C K, CRP, CMP, CBC, ESR, TSH3 #### [facility] [address] [place] [address] [place] #### ALDOLASE #### [facility] , Lymphocytes (Bld) [#/Vol] 1.7 10*3/uL Normal 1.00-4.8 [facility] Comment on above: Performed By: #### C K, CRP, CMP, CBC, ESR, TSH3 #### [address] #### ALDOLASE #### [facility] , Lymphocytes/100 WBC (Bld) 22.1 % Normal . [facility] Comment on above: Performed By: #### C K, CRP, CMP, CBC, ESR, TSH3 #### [facility] [address] [place] [address] [place] #### ALDOLASE #### [facility] , MCH (RBC) [Entitic mass] 30.2 pg Normal 24.7-34.3 [facility] Comment on above: Performed By: #### C K, CRP, CMP, CBC, ESR, TSH3 #### [facility] [address] [place] [address] [place] #### ALDOLASE #### [facility] , MCV (RBC) [Entitic vol] 92.6 fL Normal 80-100 [facility] Comment on above: Performed By: #### C K, CRP, CMP, CBC, ESR, TSH3 #### [place] [address] [place] #### ALDOLASE #### [facility] , Mean Corpuscular HGB Conc 32.6 g/dL Normal 32.0-35.0 [facility] Comment on above: Performed By: #### C K, CRP, CMP, CBC, ESR, TSH3 #### [facility] [address] [place] [address] [place] #### ALDOLASE #### [facility] , Monocytes (Bld) [#/Vol] 0.3 10*3/uL Normal 0.0-0.8 [facility] Comment on above: Performed By: #### C K, CRP, CMP, CBC, ESR, TSH3 #### [place] [address] [place] #### ALDOLASE #### [facility] , Monocytes/100 WBC (Bld) 4.5 % Normal . [facility] Comment on above: Performed By: #### C K, CRP, CMP, CBC, ESR, TSH3 #### [place] [address] [place] #### ALDOLASE #### [facility] , Neutrophils (Bld) [#/Vol] 5.4 10*3/uL Normal 1.8-7.7 [facility] Comment on above: Performed By: #### C K, CRP, CMP, CBC, ESR, TSH3 #### [address] #### ALDOLASE #### [facility] , Neutrophils/100 WBC (Bld) 72.0 % Normal . [facility] Comment on above: Performed By: #### C K, CRP, CMP, CBC, ESR, TSH3 #### [place] [address] [place] #### ALDOLASE #### [facility] , NRBC% 0.1 /100{WBC} Normal 0-0.5 [facility] Comment on above: Performed By: #### C K, CRP, CMP, CBC, ESR, TSH3 #### [place] [address] [place] #### ALDOLASE #### [facility] , Platelet mean volume (Bld) [Entitic vol] 6.7 fL Normal 6.3-10.7 [facility] Comment on above: Performed By: #### C K, CRP, CMP, CBC, ESR, TSH3 #### [facility] [address] [place] [address] [place] #### ALDOLASE #### [facility] , Platelets (Bld) [#/Vol] 379 10*3/uL Normal 150-450 [facility] Comment on above: Performed By: #### C K, CRP, CMP, CBC, ESR, TSH3 #### [facility] [address] [place] [address] [place] #### ALDOLASE #### [facility] , RBC (Bld) [#/Vol] 4.35 10*6/uL Normal 3.60-5.00 [facility] Comment on above: Performed By: #### C K, CRP, CMP, CBC, ESR, TSH3 #### [place] [address] [place] #### ALDOLASE #### [facility] , WBC (Bld) [#/Vol] 7.5 10*3/uL Normal 3.8-11.6 [facility] Comment on above: Performed By: #### C K, CRP, CMP, CBC, ESR, TSH3 #### [facility] [address] [place] [address] [place] #### ALDOLASE #### [facility] , Comprehensive Metabolic Pane alcides 05-05-2022 Albumin [Mass/Vol] 4.6 g/dL Normal 3.2-5.5 [facility] Comment on above: Performed By: #### C K, CRP, CMP, CBC, ESR, TSH3 #### [place] [address] [place] #### ALDOLASE #### [facility] , Albumin/Globulin [Mass ratio] 1.9 {ratio} Normal [facility] Comment on above: Performed By: #### C K, CRP, CMP, CBC, ESR, TSH3 #### [facility] [address] [place] [address] [place] #### ALDOLASE #### [facility] , ALP [Catalytic activity/Vol] 61 U/L Normal 32-92 [facility] Comment on above: Performed By: #### C K, CRP, CMP, CBC, ESR, TSH3 #### [facility] [address] [place] [address] #### ALDOLASE #### [facility] , ALT [Catalytic activity/Vol] 61 U/L High 10-60 [facility] Comment on above: Performed By: #### C K, CRP, CMP, CBC, ESR, TSH3 #### [facility] [address] [place] [address] [place] #### ALDOLASE #### [facility] , Anion gap [Moles/Vol] 17.3 mmol/L High 6.0-15.0 [facility] Comment on above: Performed By: #### C K, CRP, CMP, CBC, ESR, TSH3 #### [facility] [address] [place] [address] #### ALDOLASE #### [facility] , AST [Catalytic activity/Vol] 39 U/L Normal 10-42 [facility] Comment on above: Performed By: #### C K, CRP, CMP, CBC, ESR, TSH3 #### [facility] [address] [place] [address] [place] #### ALDOLASE #### [facility] , Bilirubin [Mass/Vol] 0.6 mg/dL Normal 0.3-1.2 [facility] Comment on above: Performed By: #### C K, CRP, CMP, CBC, ESR, TSH3 #### [facility] [address] [place] [address] [place] #### ALDOLASE #### [facility] , Calcium [Mass/Vol] 10.3 mg/dL High 8.2-10.2 [facility] Comment on above: Performed By: #### C K, CRP, CMP, CBC, ESR, TSH3 #### [facility] [address] [place] [address] [place] #### ALDOLASE #### [facility] , Chloride [Moles/Vol] 94 mmol/L Low 95-114 [facility] Comment on above: Performed By: #### C K, CRP, CMP, CBC, ESR, TSH3 #### [facility] [address] [place] [address] [place] #### ALDOLASE #### [facility] , CO2 [Moles/Vol] 25.4 mmol/L Normal 22.0-30.[address] [facility] Comment on above: Performed By: #### C K, CRP, CMP, CBC, ESR, TSH3 #### [facility] [address] [place] [address] [place] #### ALDOLASE #### [facility] , Creatinine [Mass/Vol] 0.66 mg/dL Normal 0.44-1.03 [facility] Comment on above: Performed By: #### C K, CRP, CMP, CBC, ESR, TSH3 #### [facility] [address] [place] [address] [place] #### ALDOLASE #### [facility] , Estimated GFR ( Meenu > 60 Normal [facility] Comment on above: Result Comment: GFR estimated reference range: According to KDOQI guidelines, <60 ml/min/1.73m2 is sufficient to diagnose a patient with chronic kidney disease. Performed By: #### C K, CRP, CMP, CBC, ESR, TSH3 #### [facility] [address] [place] [address] [place] #### ALDOLASE #### [facility] , Estimated GFR (Non- Am > 60 Normal [facility] Comment on above: Performed By: #### C K, CRP, CMP, CBC, ESR, TSH3 #### [facility] [address] [place] [address] [place] #### ALDOLASE #### [facility] , Globulin (S) [Mass/Vol] 2.4 g/dL Normal [facility] Comment on above: Performed By: #### C K, CRP, CMP, CBC, ESR, TSH3 #### [place] [address] [place] #### ALDOLASE #### [facility] , Glucose [Mass/Vol] 119 mg/dL High 70-100 [facility] Comment on above: Result Comment: [facility] Glucose Reference Range is dependent on time and content of last meal. Glucose of more than 200 mg/dL in a nonstressed, ambulatory subject supports the diagnosis of Diabetes Mellitus. ADA recommended reference range Performed By: #### C K, CRP, CMP, CBC, ESR, TSH3 #### [place] [address] [place] #### ALDOLASE #### [facility] , Potassium [Moles/Vol] 4.7 mmol/L Normal 3.5-5.1 [facility] Comment on above: Performed By: #### C K, CRP, CMP, CBC, ESR, TSH3 #### [facility] [address] [place] [address] [place] #### ALDOLASE #### [facility] , Protein [Mass/Vol] 7.0 g/dL Normal 6.1-7.9 [facility] Comment on above: Performed By: #### C K, CRP, CMP, CBC, ESR, TSH3 #### [place] [address] [place] #### ALDOLASE #### [facility] , Sodium [Moles/Vol] 132 mmol/L Low 136-146 [facility] Comment on above: Performed By: #### C K, CRP, CMP, CBC, ESR, TSH3 #### [facility] [address] [place] [address] [place] #### ALDOLASE #### [facility] , Urea nitrogen [Mass/Vol] 12 mg/dL Normal 9-23 [facility] Comment on above: Performed By: #### C K, CRP, CMP, CBC, ESR, TSH3 #### [facility] [address] [place] [address] [place] #### ALDOLASE #### [facility] , Creatine Kinaseon 05-05-2022 CK [Catalytic activity/Vol] 1859 U/L High [facility] Comment on above: Result Comment: PERF ORMED BY: [place] [address] PATHOLOGIST SENIOR SALES REPRESENTATIVE LILLY LOTT M.D. Performed By: #### C K, CRP, CMP, CBC, ESR, TSH3 #### [facility] [address] [place] [address] [place] #### ALDOLASE #### [facility] , Creatine kinase [Enzymatic a ctivity/volume] in Serum or PlasmaOrdered By: Johann Dolan on 05-05-2022 CK [Catalytic activity/Vol] 1859 U/L [facility] Creatinine and Glomerular fi ltration rate.predicted panel (S/P/Bld)Ordered By: Johann Dolan on 05-05-2022 Creatinine [Mass/Vol] 0.66 mg/dL 0.44-1.03 [facility] Eosinophils Auto (Bld) [#/Vo l]Ordered By: Johann Dolan on 05-05-2022 Eosinophils (Bld) [#/Vol] 0.1 10*3/uL 0.0-0.45 [facility] Eosinophils/100 WBC Auto (Bl d)Ordered By: Johann Dolan on 05-05-2022 Eosinophils/100 WBC (Bld) 0.7 % . [facility] Erythrocyte Sedimentation Ra yvonne 05-05-2022 ESR (Bld) [Velocity] 15 mm/h Normal 0-29 [facility] Comment on above: Result Comment: PERF ORMED BY: [place] [address] PATHOLOGIST SENIOR SALES REPRESENTATIVE LILLY LOTT M.D. Performed By: #### C K, CRP, CMP, CBC, ESR, TSH3 #### [address] #### ALDOLASE #### [facility] , Erythrocyte distribution wid th Auto (RBC) [Ratio]Ordered By: Johann Dolan on 05-05-2022 Erythrocyte distribution width (RBC) [Ratio] 13.9 % 11.9-15.3 [facility] Erythrocyte sedimentation ra te by Photometric methodOrdered By: Johann Dolan on 05-05-2022 ESR Photometric method (Bld) [Velocity] 15 mm/hr 0-29 [facility] Estimated glomerular filtrat ion rate (GFR) non- AmericanOrdered By: Johann Dolan on 05-05-2022 GFR/1.73 sq M.predicted among non-blacks MDRD (S/P/Bld) [Vol rate/Area] > 60 mL/Min [facility] Globulin Calc (S) [Mass/Vol] Ordered By: Johann Dolan on 05-05-2022 Globulin (S) [Mass/Vol] 2.4 g/dL [facility] Hematocrit Auto (Bld) [Volum e fraction]Ordered By: Johann Dolan on 05-05-2022 Hematocrit (Bld) [Volume fraction] 40.3 % 34.0-46.4 [facility] Hemoglobin [Mass/volume] in BloodOrdered By: Johann Dolan on 05-05-2022 Hemoglobin (Bld) [Mass/Vol] 13.1 g/dL 11.8-15.4 [facility] LC CRPon 05-05-2022 LC CRP, Quant <1 Normal 0-10 [facility] Comment on above: Result Comment: Perf ormed at: CB - [facility] [address] [id number] Electrical Mechanic: Reggie Lazcano PhD, Phone: [phone] PERFORMED BY: [facility] [address] [place] [address] PATHOLOGIST SENIOR SALES REPRESENTATIVE LILLY LOTT M.D. Performed By: #### S DIONNE YADAVID-19 KATELYN #### [facility] [address] Leukocytes [#/volume] correc marlen for nucleated erythrocytes in Blood by Automated counOrdered By: Johann Dolan on 05-05-2022 WBC corrected for nucl RBC Auto (Bld) [#/Vol] 7.5 10*3/uL 3.8-11.6 [facility] Lymphocytes Auto (Bld) [#/Vo l]Ordered By: Johann Dolan on 05-05-2022 Lymphocytes (Bld) [#/Vol] 1.7 10*3/uL 1.00-4.8 [facility] Lymphocytes/100 WBC Auto (Bl d)Ordered By: Johann Dolan on 05-05-2022 Lymphocytes/100 WBC (Bld) 22.1 % . [facility] MCH Auto (RBC) [Entitic mass ]Ordered By: Johann Dolan on 05-05-2022 MCH (RBC) [Entitic mass] 30.2 pg 24.7-34.3 [facility] MCHC Auto (RBC) [Mass/Vol]Or dered By: Johann Dolan on 05-05-2022 MCHC (RBC) [Mass/Vol] 32.6 g/dL 32.0-35.0 [facility] MCV Auto (RBC) [Entitic vol] Ordered By: Johann Dolan on 05-05-2022 MCV (RBC) [Entitic vol] 92.6 fL 80-100 [facility] Monocytes Auto (Bld) [#/Vol] Ordered By: Johann Dolan on 05-05-2022 Monocytes (Bld) [#/Vol] 0.3 10*3/uL 0.0-0.8 [facility] Monocytes/100 WBC Auto (Bld) Ordered By: Johann Dolan on 05-05-2022 Monocytes/100 WBC (Bld) 4.5 % . [facility] Myositis Panelon 05-05-2022 Myositis Panel Normal [facility] Comment on above: Result Comment: See report. Scanned copy available in EMR. PERFORMED BY: [facility] [address] [facility] [place] [address] PATHOLOGIST SENIOR SALES REPRESENTATIVE LILLY LOTT M.D. Performed By: #### S DIONNE YADAVID-19 KATELYN #### [facility] [address] Neutrophils Auto (Bld) [#/Vo l]Ordered By: Johann Dolan on 05-05-2022 Neutrophils (Bld) [#/Vol] 5.4 10*3/uL 1.8-7.7 [facility] Neutrophils/100 WBC Auto (Bl d)Ordered By: Johann Dolan on 05-05-2022 Neutrophils/100 WBC (Bld) 72.0 % . [facility] No Panel InformationOrdered By: Johann Dolan on 05-05-2022 Anti-Nuclear Antibody Comment 2 See comment . [facility] Comment on above: For more information about [...] titers Nucleosomes, Histones Drug-induced SLE Speckled Sm, WOOD GRAINER, SCL-70, SLE,MCTD,PSS (diffuse form), SS-A/SS-B Sjogrens Nucleolar SCL-70, PM-1/SCL High titers Scleroderma, PM/DM Centromere Centromere PSS (limited form) w/Crest syndrome variable Nuclear Dot [id number] Primary Biliary Cirrhosis Nuclear GP210, Primary Biliary CirrhosisMembrane ban A,B,C Performed at: [facility] - [facility] [id number] Director: Reggie Lazcano PhD, Phone: [phone] Myositis Autoantibodies See comment [facility] Comment on above: See report. Scanned copy available in EMR. Estimated GFR () > 60 mL/Min [facility] Comment on above: GFR estimated refere nce range: According to KDOQI guidelines, <60 ml/min/1.73m2 is sufficient to diagnose a patient with chronic kidney disease. Pharmacy Creatinine Clearance (Chem N/A [facility] Nucleated erythrocytes [Pres ence] in Blood by Automated countOrdered By: Johann Dolan on 05-05-2022 Nucleated RBC Auto Ql (Bld) 0.1 /100{WBC} 0-0.5 [facility] Platelet mean volume Auto (B ld) [Entitic vol]Ordered By: Johann Dolan on 05-05-2022 Platelet mean volume (Bld) [Entitic vol] 6.7 fL 6.3-10.7 [facility] Platelets Auto (Bld) [#/Vol] Ordered By: Johann Dolan on 05-05-2022 Platelets (Bld) [#/Vol] 379 10*3/uL 150-450 [facility] Protein [Mass/volume] in Ser um or PlasmaOrdered By: Johann Dolan on 05-05-2022 Protein [Mass/Vol] 7.0 g/dL 6.1-7.9 [facility] RBC Auto (Bld) [#/Vol]Ordere d By: Johann Dolan on 05-05-2022 RBC (Bld) [#/Vol] 4.35 10*6/uL 3.60-5.00 [facility] Serum angiotensin converting enzyme (JOS) measurementOrdered By: Johann Dolan on 05-05-2022 Angiotensin converting enzyme [Catalytic activity/Vol] U/L 1482 [facility] Comment on above: Performed at: [address] [id number] Director: Reggie Lazcano PhD, Phone: [phone] Serum nuclear antibody titer Ordered By: Johann Dolan on 05-05-2022 Nuclear Ab (S) [Titer] Positive . [facility] Comment on above: Negative <1:80 Borde rline 1:80 Positive >1:80 Serum or plasma alanine gomez otransferase measurement without P-5'-P (enzymatic activiOrdered By: Johann Dolan on 05-05-2022 ALT No additional P-5'-P [Catalytic activity/Vol] 61 U/L 10-60 [facility] Serum or plasma albumin/glob ulin mass ratioOrdered By: Johann Dolan on 05-05-2022 Albumin/Globulin [Mass ratio] 1.9 {ratio} [facility] Serum or plasma alkaline rashawn sphatase measurement (enzymatic activity/volume)Ordered By: Johann Dolan on 05-05-2022 ALP [Catalytic activity/Vol] 61 U/L 32-92 [facility] Serum or plasma anion gap de terminationOrdered By: Johann Dolan on 05-05-2022 Anion gap [Moles/Vol] 17.3 mmol/L 6.0-15.0 [facility] Serum or plasma aspartate am inotransferase measurement (enzymatic activity/volume)Ordered By: Johann Dolan on 05-05-2022 AST [Catalytic activity/Vol] 39 U/L 10-42 [facility] Serum or plasma calcium jose urement (mass/volume)Ordered By: Johann Dolan on 05-05-2022 Calcium [Mass/Vol] 10.3 mg/dL 8.2-10.2 [facility] Serum or plasma chloride shay surement (moles/volume)Ordered By: Johann Dolan on 05-05-2022 Chloride [Moles/Vol] 94 mmol/L 95-114 [facility] Serum or plasma glucose jose urement (mass/volume)Ordered By: Johann Dolan on 05-05-2022 Glucose [Mass/Vol] 119 mg/dL 70-100 [facility] Comment on above: ADA recommended refe rence rangeRandom Glucose Reference Range is dependent on time and content of last meal. Glucose of more than 200 mg/dL in a nonstressed, ambulatory subject supports the diagnosis of Diabetes Mellitus. Serum or plasma potassium me asurement (moles/volume)Ordered By: Johann Dolan on 05-05-2022 Potassium [Moles/Vol] 4.7 mmol/L 3.5-5.1 [facility] Serum or plasma sodium measu rement (moles/volume)Ordered By: Johann Dolan on 05-05-2022 Sodium [Moles/Vol] 132 mmol/L 136-146 [facility] Serum or plasma total biliru bin measurement (mass/volume)Ordered By: Johann Dolan on 05-05-2022 Bilirubin [Mass/Vol] 0.6 mg/dL 0.3-1.2 [facility] Serum or plasma total carbon dioxide measurement (moles/volume)Ordered By: Johann Dolan on 05-05-2022 CO2 [Moles/Vol] 25.4 mmol/L 22.0-30.[address] [facility] Serum or plasma urea nitroge n measurement (mass/volume)Ordered By: Johann Dolan on 05-05-2022 Urea nitrogen [Mass/Vol] 12 mg/dL 12-26 [facility] Serum speckled pattern antin uclear antibody (LUIS ENIRQUE) titerOrdered By: Johann Dolan on 05-05-2022 Speckled nuclear Ab pattern (S) [Titer] 1:80 . [facility] Comment on above: ICAP nomenclature: A C-2,4,5,29 TSH DL <= 0.005 mIU/L QnOrde red By: Johann Dolan on 05-05-2022 TSH Qn 1.42 m[IU]/L 0.45-5.33 [facility] Thyroid Stimulating Hormoneo n 05-05-2022 TSH Qn 1.42 m[IU]/L Normal 0.45-5.33 [facility] Comment on above: Result Comment: PERF ORMED BY: [place] [address] PATHOLOGIST SENIOR SALES REPRESENTATIVE LILLY LOTT M.D. Performed By: #### C K, CRP, CMP, CBC, ESR, TSH3 #### [address] #### ALDOLASE #### [facility] , WBC Auto (Bld) [#/Vol]Ordere d By: Johann Dolan on 05-05-2022 WBC (Bld) [#/Vol] 7.5 10*3/uL 3.8-11.6 [facility] UA RANDOM W/MICROSCOPICon BACTERIA TRACE Abnormal NONE SEEN [facility] Comment on above: Performed By: #### L IPID, BMP, NA #### [facility] [address] [address] [address] Dilip Cartagena Bilirubin Ql (U) Negative Normal NEGATIVE [facility] Comment on above: Performed By: #### L IPID, BMP, NA #### [facility] [address] [address] [address] Dilip Cartagena CAST NONE SEEN Normal NONE SEEN [facility] Comment on above: Performed By: #### L IPID, BMP, NA #### [facility] [address] [address] [address] Dilip Cartagena Clarity (U) CLEAR Normal CLEAR [facility] Comment on above: Performed By: #### L IPID, BMP, NA #### [facility] [address] [place] [address] Dr. Dilip Cartagena Color (U) DK. ORANGE Abnormal YELLOW [facility] Comment on above: Performed By: #### L IPID, BMP, NA #### [facility] [address] [place] [address] Dr. Dilip Cartagena Crystals LM Nom (Urine sed) NONE SEEN Normal NONE SEEN [facility] Comment on above: Performed By: #### L IPID, BMP, NA #### [facility] [address] [place] [address] Dr. Dilip Cartagena Epithelial cells LM Ql (Urine sed) RARE Normal NONE SEEN /RARE [facility] Comment on above: Performed By: #### L IPID, BMP, NA #### [facility] [address] [address] [address] Dilip Cartagena Glucose Ql (U) Negative Normal NEGATIVE [facility] Comment on above: Performed By: #### L IPID, BMP, NA #### [facility] [address] [place] [address] Dr. Dilip Cartagena Hemoglobin Ql (U) Negative Normal NEGATIVE [facility] Comment on above: Performed By: #### L IPID, BMP, NA #### [facility] [address] [place] [address] Dr. Dilip Cartagena Ketones Ql (U) Negative Normal NEGATIVE [facility] Comment on above: Performed By: #### L IPID, BMP, NA #### [facility] [address] [place] [address] Dr. Dilip Cartagena LEUKOCYTES TRACE Abnormal NEGATIVE [facility] Comment on above: Performed By: #### L IPID, BMP, NA #### [facility] [address] [place] [address] Dr. Dilip Cartagena MUCOUS NONE SEEN Normal NONE SEEN [facility] Comment on above: Performed By: #### L IPID, BMP, NA #### [facility] [address] [place] [address] Dr. Dilip Cartagena Nitrite Ql (U) Positive Abnormal NEGATIVE [facility] Comment on above: Performed By: #### L IPID, BMP, NA #### [facility] [address] [place] [address] Dr. Dilip Cartagena pH (U) 7.5 [pH] Normal 5-9 [facility] Comment on above: Performed By: #### L IPID, BMP, NA #### [facility] [address] [place] [address] Dr. Dilip Cartagena RBC 0-2 Normal 0-2 [facility] Comment on above: Performed By: #### L IPID, BMP, NA #### [facility] [address] [place] [address] Dr. Dilip Cartagena SPEC GRAVITY <=1.005 Abnormal 1.005-<=1. 025 [facility] Comment on above: Performed By: #### L IPID, BMP, NA #### [facility] [address] [place] [address] Dr. Dilip Cartagena UA PROTEIN Negative Normal NEGATIVE/ TRACE [facility] Comment on above: Performed By: #### L IPID, BMP, NA #### [facility] [address] [place] [address] Dr. Dilip Cartagena Urobilinogen Qn (U) 1.0 {Hallie'U}/dL Normal 0.2 - 1. 0 [facility] Comment on above: Performed By: #### L IPID, BMP, NA #### [facility] [address] [place] [address] Dr. Dilip Cartagena WBC 0-2 Abnormal NONE SEEN [facility] Comment on above: Performed By: #### L IPID, BMP, NA #### [facility] [address] [place] [address] Dr. Dilip Cartagena CKMBon 02-25-2022 CK.MB [Mass/Vol] 194.45 ng/mL Critically high <=3.60 T [facility] Comment on above: Performed By: #### L IPID, BMP, NA #### [facility] [address] [place] [address] Dr. Dilip Cartagena CPKon 02-25-2022 CK [Catalytic activity/Vol] 2549 U/L Critically high 26-192 [facility] Comment on above: Performed By: #### L IPID, BMP, NA #### [facility] [address] [place] [address] Dr. Dilip Cartagena GLYCOHEMOGLOBIN A1Con 2021 ADA RECOMMENDATION SEE BELOW Normal [facility] Comment on above: Result Comment: ADA RECOMMENDED LIMIT 4.0 - 6.0 ADA THERAPEUTIC TARGET < 7.0 ACTION SUGGESTED > 7.0 Performed By: #### U RCX #### [facility] [address] [place] [address] Dr. Dilip Cartagena Glucose [Mass/Vol] 143 mg/dL Normal [facility] Comment on above: Performed By: #### U RCX #### [facility] [address] [place] [address] Dr. Dilip Cartagena HbA1c (Bld) [Mass fraction] 6.6 % Critically high 4.5-6.2 [facility] Comment on above: Performed By: #### U RCX #### [facility] [address] [place] [address] Dr. Dilip Cartagena MYOGLOBINon 02-25-2022 REESE 1013 ng/mL Critically high 9-82 [facility] Comment on above: Performed By: #### L IPID, BMP, NA #### [facility] [address] [place] [address] Dr. Dilip Cartagena PROF CHEM 8 (BAS METB)on Anion gap [Moles/Vol] 10.3 mmol/L Normal [facility] Comment on above: Performed By: #### L IPID, BMP, NA #### [facility] [address] [place] [address] Dr. Dilip Cartagena Calcium [Mass/Vol] 9.5 mg/dL Normal 8.5-10.1 [facility] Comment on above: Performed By: #### L IPID, BMP, NA #### [facility] [address] [place] [address] Dr. Dilip Cartagena Chloride [Moles/Vol] 101 mmol/L Normal 98-107 [facility] Comment on above: Performed By: #### L IPID, BMP, NA #### [facility] [address] [place] [address] Dr. Dilip Cartagena CO2 [Moles/Vol] 29.1 mmol/L Normal 21.0-32.0 [facility] Comment on above: Performed By: #### L IPID, BMP, NA #### [facility] [address] [place] [address] Dr. Dilip Cartagena Creatinine [Mass/Vol] 0.66 mg/dL Normal 0.55-1.02 [facility] Comment on above: Performed By: #### L IPID, BMP, NA #### [facility] [address] [place] [address] Dr. Dilip Cartagena EGFR-AF CYPRIOT >60 Normal >=60 [facility] Comment on above: Performed By: #### L IPID, BMP, NA #### [facility] [address] [place] [address] Dr. Dilip Cartagena EGFR-NON AF CYPRIOT >60 Normal >=60 [facility] Comment on above: Performed By: #### L IPID, BMP, NA #### [facility] [address] [place] [address] Dr. Dilip Cartagena Glucose [Mass/Vol] 147 mg/dL Critically high 74-106 T [facility] Comment on above: Performed By: #### L IPID, BMP, NA #### [facility] [address] [address] [address] Dilip Cartagena Potassium [Moles/Vol] 4.4 mmol/L Normal 3.5-5.1 [facility] Comment on above: Performed By: #### L IPID, BMP, NA #### [facility] [address] [address] [address] Dilip Cartagena Sodium [Moles/Vol] 136 mmol/L Normal 136-145 [facility] Comment on above: Performed By: #### L IPID, BMP, NA #### [facility] [address] [place] [address] Dr. Dilip Cartagena Urea nitrogen [Mass/Vol] 17.0 mg/dL Normal 7.0-18.0 [facility] Comment on above: Performed By: #### L IPID, BMP, NA #### [facility] [address] [place] [address] Dr. Dilip Cartagena Urea nitrogen/Creatinine [Mass ratio] 25.8 mg/mg Normal [facility] Comment on above: Performed By: #### L IPID, BMP, NA #### [facility] [address] [place] [address] Dr. Dilip Cartagena US BEV DOP LEG [...] ERIC BERRY Date: 2022-02-25 15:50 Normal [facility] CULTURE URINEon 02-11-2022 CULTURE URINE Culture Observations : LIGHT GROWTH OF MIXED GENITAL JAVON. NO POTENTIAL PATHOGENS SEEN. Normal [facility] Comment on above: Performed By: #### U RCX #### [facility] [address] [place] [address] Dr. Dilip Cartagena UA RANDOM W/MICROSCOPICon BACTERIA TRACE Abnormal NONE SEEN [facility] Comment on above: Performed By: #### L IPID, BMP, NA #### [facility] [address] [place] [address] Dr. Dilip Cartagena Bilirubin Ql (U) Negative Normal NEGATIVE [facility] Comment on above: Performed By: #### L IPID, BMP, NA #### [facility] [address] [place] [address] Dr. Dilip Cartagena CAST NONE SEEN Normal NONE SEEN [facility] Comment on above: Performed By: #### L IPID, BMP, NA #### [facility] [address] [place] [address] Dr. Dilip Cartagena Clarity (U) CLEAR Normal CLEAR [facility] Comment on above: Performed By: #### L IPID, BMP, NA #### [facility] [address] [place] [address] Dr. Dilip Cartagena Color (U) DK. ORANGE Abnormal YELLOW [facility] Comment on above: Performed By: #### L IPID, BMP, NA #### [facility] [address] [place] [address] Dr. Dilip Cartagena Crystals LM Nom (Urine sed) NONE SEEN Normal NONE SEEN [facility] Comment on above: Performed By: #### L IPID, BMP, NA #### [facility] [address] [place] [address] Dr. Dilip Cartagena Epithelial cells LM Ql (Urine sed) FEW Abnormal NONE SEEN /RARE [facility] Comment on above: Performed By: #### L IPID, BMP, NA #### [facility] [address] [place] [address] Dr. Dilip Cartagena Glucose Ql (U) Negative Normal NEGATIVE [facility] Comment on above: Performed By: #### L IPID, BMP, NA #### [facility] [address] [place] [address] Dr. Dilip Cartagena Hemoglobin Ql (U) Negative Normal NEGATIVE [facility] Comment on above: Performed By: #### L IPID, BMP, NA #### [facility] [address] [address] [address] Dilip Cartagena Ketones Ql (U) Negative Normal NEGATIVE [facility] Comment on above: Performed By: #### L IPID, BMP, NA #### [facility] [address] [place] [address] Dr. Dilip Cartagena LEUKOCYTES Negative Normal NEGATIVE [facility] Comment on above: Performed By: #### L IPID, BMP, NA #### [facility] [address] [place] [address] Dr. Dilip Cartagena MUCOUS NONE SEEN Normal NONE SEEN [facility] Comment on above: Performed By: #### L IPID, BMP, NA #### [facility] [address] [place] [address] Dr. Dilip Cartagena Nitrite Ql (U) Positive Abnormal NEGATIVE [facility] Comment on above: Performed By: #### L IPID, BMP, NA #### [facility] [address] [place] [address] Dr. Dilip Cartagena pH (U) 7.0 [pH] Normal 5-9 [facility] Comment on above: Performed By: #### L IPID, BMP, NA #### [facility] [address] [place] [address] Dr. Dilip Cartagena RBC 0-2 Normal 0-2 [facility] Comment on above: Performed By: #### L IPID, BMP, NA #### [facility] [address] [place] [address] Dr. Dilip Cartagena SPEC GRAVITY 1.010 Normal 1.005-<=1. 025 [facility] Comment on above: Performed By: #### L IPID, BMP, NA #### [facility] [address] [place] [address] Dr. Dilip Cartagena UA PROTEIN Negative Normal NEGATIVE/ TRACE [facility] Comment on above: Performed By: #### L IPID, BMP, NA #### [facility] [address] [place] [address] Dr. Dilip Cartagena Urobilinogen Qn (U) 1.0 {Hallie'U}/dL Normal 0.2 - 1. 0 [facility] Comment on above: Performed By: #### L IPID, BMP, NA #### [facility] [address] [place] [address] Dr. Dilip Cartagena WBC 0-2 Abnormal NONE SEEN [facility] Comment on above: Performed By: #### L IPID, BMP, NA #### [facility] [address] [place] [address] Dr. Dilip Cartagena LUIS ENRIQUE by IFAon 02-03-2022 Antinuclear Antibodies, IFA Positive Abnormal [facility] Comment on above: Result Comment: Nega tive <1:80 Borderline 1:80 Positive >1:80 Performed By: #### U RCX #### [facility] [address] [place] [address] Dr. Dilip Cartagena Centriole Pattern Normal [facility] Comment on above: Performed By: #### U RCX #### [facility] [address] [place] [address] Dr. Dilip Cartagena Centromere Pattern Normal [facility] Comment on above: Performed By: #### U RCX #### [facility] [address] [place] [address] Dr. Dilip Cartagena Homogeneous Pattern 1:80 Normal [facility] Comment on above: Result Comment: ICAP nomenclature: AC-1 Performed By: #### U RCX #### [facility] [address] [place] [address] Dr. Dilip Cartagena Midbody Pattern Normal [facility] Comment on above: Performed By: #### U RCX #### [facility] [address] [place] [address] Dr. Dilip Cartagena Note: Comment Normal [facility] Comment on above: Result Comment: For [...] titers Nucleosomes, Histones Drug-induced SLE Speckled Sm, WOOD GRAINER, SCL-70, SLE,MCTD,PSS (diffuse form), SS-A/SS-B Sjogrens Nucleolar SCL-70, PM-1/SCL High titers Scleroderma, PM/DM Centromere Centromere PSS (limited form) w/Crest syndrome variable Nuclear Dot [id number] Primary Biliary Cirrhosis Nuclear GP210, Primary Biliary Cirrhosis Membrane ban A,B,C Performed By: #### U RCX #### [facility] [address] [place] [address] Dr. Dilip Cartagena Nuclear Dot Pattern Normal [facility] Comment on above: Performed By: #### U RCX #### [facility] [address] [place] [address] Dr. Dilip Cartagena Nuclear Membrane Pattern Normal [facility] Comment on above: Performed By: #### U RCX #### [facility] [address] [place] [address] Dr. Dilip Cartagena Nucleolar Pattern Normal [facility] Comment on above: Performed By: #### U RCX #### [facility] [address] [place] [address] Dr. Dilip Cartagena PCNA Pattern Normal [facility] Comment on above: Performed By: #### U RCX #### [facility] [address] [place] [address] Dr. Dilip Cartagena Speckled Pattern Normal [facility] Comment on above: Performed By: #### U RCX #### [facility] [address] [place] [address] Dr. Dilip Cartagena Spindle Apparatus Pattern Normal [facility] Comment on above: Performed By: #### U RCX #### [facility] [address] [place] [address] Dr. Dilip Cartagena ANTISTREPTOLYSIN O AB (ASO)o n 01-31-2022 Antistreptolysin O Ab 25.1 IU/mL Normal 0.0-200.0 [facility] Comment on above: Performed By: #### L IPID, BMP, NA #### [facility] [address] [place] [address] Dr. Dilip Cartagena RHEUMATOID FACTORon 02-01-20 RA Latex Turbid. 10.1 IU/mL Normal <14.0 [facility] Comment on above: Performed By: #### U RCX #### [facility] [address] [place] [address] Dr. Dilip Cartagena CKMBon 01-30-2022 CK.MB [Mass/Vol] 227.84 ng/mL Critically high <=3.60 T [facility] Comment on above: Performed By: #### L IPID, BMP, NA #### [facility] [address] [place] [address] Dr. Dilip Cartagena CPKon 01-30-2022 CK [Catalytic activity/Vol] 3698 U/L Critically high 26-192 [facility] Comment on above: Performed By: #### L IPID, BMP, NA #### [facility] [address] [place] [address] Dr. Dilip Cartagena CRPon 01-30-2022 CRP [Mass/Vol] mg/L Normal <=1.0 [facility] Comment on above: Performed By: #### L IPID, BMP, NA #### [facility] [address] [place] [address] Dr. Dilip Cartagena MYOGLOBINon 01-30-2022 REESE 2773 ng/mL Critically high 9-82 [facility] Comment on above: Performed By: #### L IPID, BMP, NA #### [facility] [address] [place] [address] Dr. Dilip Cartagena SED RATE WESTERGRENon 2021 SED RATE 20 mm/hr Normal <=30 [facility] Comment on above: Performed By: #### U RCX #### [facility] [address] [place] [address] Dr. Dilip Cartagena URIC ACID SERUMon 01-30-2022 Urate [Mass/Vol] 5.3 mg/dL Normal 2.6-6.0 [facility] Comment on above: Performed By: #### L IPID, BMP, NA #### [facility] [address] [place] [address] Dr. Dilip Cartagena ALDOLASEon 01-28-2022 Aldolase 27.1 U/L Critically high 3.3-10.3 [facility] Comment on above: Performed By: #### U RCX #### [facility] [address] [place] [address] Dr. Dilip Cartagena CKMBon 01-26-2022 CK.MB [Mass/Vol] 244.24 ng/mL Critically high <=3.60 T [facility] Comment on above: Performed By: #### U RCX #### [facility] [address] [place] [address] Dr. Dilip Cartagena CPKon 01-26-2022 CK [Catalytic activity/Vol] 4430 U/L Critically high 26-192 [facility] Comment on above: Performed By: #### L IPID, BMP, NA #### [facility] [address] [place] [address] Dr. Dilip Cartagena CREATININEon 01-26-2022 Creatinine [Mass/Vol] 0.76 mg/dL Normal 0.55-1.02 [facility] Comment on above: Performed By: #### L IPID, BMP, NA #### [facility] [address] [place] [address] Dr. Dilip Cartagena EGFR-AF CYPRIOT >60 Normal >=60 [facility] Comment on above: Performed By: #### L IPID, BMP, NA #### [facility] [address] [place] [address] Dr. Dilip Cartagena EGFR-NON AF CYPRIOT >60 Normal >=60 [facility] Comment on above: Performed By: #### L IPID, BMP, NA #### [facility] [address] [place] [address] Dr. Dilip Cartagena MYOGLOBINon 01-26-2022 REESE 2514 ng/mL Critically high 9-82 [facility] Comment on above: Performed By: #### L IPID, BMP, NA #### [facility] [address] [place] [address] Dr. Dilip Cartagena PROF CHEM 8 (BAS METB)on Anion gap [Moles/Vol] 9.4 mmol/L Normal [facility] Comment on above: Performed By: #### L IPID, BMP, NA #### [facility] [address] [address] [address] Dilip Cartagena Calcium [Mass/Vol] 8.8 mg/dL Normal 8.5-10.1 [facility] Comment on above: Performed By: #### L IPID, BMP, NA #### [facility] [address] [address] [address] Dilip Cartagena Chloride [Moles/Vol] 104 mmol/L Normal 98-107 [facility] Comment on above: Performed By: #### L IPID, BMP, NA #### [facility] [address] [address] [address] Dilip Cartagena CO2 [Moles/Vol] 27.4 mmol/L Normal 21.0-32.0 [facility] Comment on above: Performed By: #### L IPID, BMP, NA #### [facility] [address] [address] [address] Dilip Cartagena Glucose [Mass/Vol] 141 mg/dL Critically high 74-106 [facility] Comment on above: Performed By: #### L IPID, BMP, NA #### [facility] [address] [address] [address] Dilip Cartagena Potassium [Moles/Vol] 4.8 mmol/L Normal 3.5-5.1 [facility] Comment on above: Performed By: #### L IPID, BMP, NA #### [facility] [address] [address] [address] Dilip Cartagena Sodium [Moles/Vol] 136 mmol/L Normal 136-145 [facility] Comment on above: Performed By: #### L IPID, BMP, NA #### [facility] [address] [address] [address] Dilip Cartagena Urea nitrogen [Mass/Vol] 15.0 mg/dL Normal 7.0-18.0 [facility] Comment on above: Performed By: #### L IPID, BMP, NA #### [facility] [address] [address] [address] Dilip Cartagena Urea nitrogen/Creatinine [Mass ratio] 19.7 mg/mg Normal [facility] Comment on above: Performed By: #### L IPID, BMP, NA #### [facility] [address] [id number] Dilip Cartagena US BEV DOP LEG [...] ERIC BERRY Date: 2022-01-26 18:51 Normal [facility] CULTURE BLOODon 01-21-2022 Microscopic examination of blood, [...] F Oxacillin 1 R F Normal [facility] Comment on above: Performed By: #### L IPID, BMP, NA #### [facility] [id number] Dilip Cartagena BNPon 01-17-2022 Natriuretic peptide B (Bld) [Mass/Vol] 792.0 pg/mL Normal <=1,800.0 [facility] Comment on above: Performed By: #### P OCGLUC #### [facility] [address] [address] [address] Dilip Cartagena CARDIAC JON ADMITon 022 CK [Catalytic activity/Vol] 2872 U/L Critically high 26-192 [facility] Comment on above: Performed By: #### U RCX #### [facility] [address] [place] [address] Dr. Dilip Cartagena CK.MB [Mass/Vol] 143.67 ng/mL Critically high <=3.60 T [facility] Comment on above: Performed By: #### U RCX #### [facility] [address] [place] [address] Dr. Dilip Cartagena HSTROP 25.6 pg/mL Normal 4.0-51.3 [facility] Comment on above: Result Comment: CUT- OFF POINTS HAVE BEEN ESTABLISHED BASED ON THE FOURTH UNIVERSAL DEFINITIONS OF MYOCARDIAL INFARCTION. THE UPPER REFERENCE LIMIT (URL) OF TROPONIN, DEFINED THE 99TH PERCENTILE OF cTnI DISTRIBUTION IN A REFERENCE POPULATION, HAS BEEN CONFIRMED THE DECISION THRESHOLD FOR KS DIAGNOSIS. Performed By: #### U RCX #### [facility] [address] [place] [address] Dr. Dilip Cartagena REESE 1364 ng/mL Critically high 9-82 [facility] Comment on above: Performed By: #### U RCX #### [facility] [address] [place] [address] Dr. Dilip Cartagena CBC AUTO DIFFon 01-17-2022 BASO # 0.0 103/ul Normal 0.0-0.1 [facility] Comment on above: Performed By: #### U RCX #### [facility] [address] [place] [address] Dr. Dilip Cartagena Basophils/100 WBC (Bld) 0.4 % Normal 0.2-2.0 [facility] Comment on above: Performed By: #### U RCX #### [facility] [address] [place] [address] Dr. Dilip Cartagena EO # 0.1 103/ul Normal 0.0-0.7 [facility] Comment on above: Performed By: #### U RCX #### [facility] [address] [place] [address] Dr. Dilip Cartagena Eosinophils/100 WBC (Bld) 1.8 % Normal 0.9-7.0 [facility] Comment on above: Performed By: #### U RCX #### [facility] [address] [place] [address] Dr. Dilip Cartagena Erythrocyte distribution width (RBC) [Ratio] 14.0 % Normal 11.0-15.0 [facility] Comment on above: Performed By: #### U RCX #### [facility] [address] [place] [address] Dr. Dilip Cartagena Hematocrit (Bld) [Volume fraction] 36.0 % Normal 36.0-48.0 [facility] Comment on above: Performed By: #### U RCX #### [facility] [address] [place] [address] Dr. Dilip Cartagena Hemoglobin (Bld) [Mass/Vol] 11.4 g/dL Critically low 12.0-16.0 [facility] Comment on above: Performed By: #### U RCX #### [facility] [address] [place] [address] Dr. Dilip Cartagena IG # 0.06 10e3/ul Critically high 0.00-0.03 [facility] Comment on above: Performed By: #### U RCX #### [facility] [address] [place] [address] Dr. Dilip Cartagena IG % 0.9 % Critically high 0.0-0.5 [facility] Comment on above: Performed By: #### U RCX #### [facility] [address] [place] [address] Dr. Dilip Cartagena LYMPH # 2.1 103/ul Normal 1.2-3.8 [facility] Comment on above: Performed By: #### U RCX #### [facility] [address] [place] [address] Dr. Dilip Cartagena Lymphocytes/100 WBC (Bld) 30.6 % Normal 20.5-60.0 [facility] Comment on above: Performed By: #### U RCX #### [facility] [address] [place] [address] Dr. Dilip Cartagena MANUAL DIFF REQ NO Normal [facility] Comment on above: Performed By: #### U RCX #### [facility] [address] [place] [address] Dr. Dilip Cartagena [facility] (RBC) [Entitic mass] 30.4 pg Normal 26.7-34.0 [facility] Comment on above: Performed By: #### U RCX #### [facility] [address] [place] [address] Dr. Dilip Cartagena MCHC (RBC) [Mass/Vol] 31.7 g/dL Normal 29.9-35.2 [facility] Comment on above: Performed By: #### U RCX #### [facility] [address] [place] [address] Dr. Dilip Cartagena MCV (RBC) [Entitic vol] 96.0 fL Normal 81.0-99.0 [facility] Comment on above: Performed By: #### U RCX #### [facility] [address] [place] [address] Dr. Dilip Cartagena MONO # 0.5 103/ul Normal 0.3-0.8 [facility] Comment on above: Performed By: #### U RCX #### [facility] [address] [place] [address] Dr. Dilip Cartagena Monocytes/100 WBC (Bld) 7.3 % Normal 1.7-12.0 [facility] Comment on above: Performed By: #### U RCX #### [facility] [address] [place] [address] Dr. Dilip Cartagena NEUT # 4.0 103/ul Normal 1.4-6.5 [facility] Comment on above: Performed By: #### U RCX #### [facility] [address] [place] [address] Dr. Dilip Cartagena Neutrophils/100 WBC (Bld) 59.0 % Normal 43.0-75.0 [facility] Comment on above: Performed By: #### U RCX #### [facility] [address] [address] [address] Dilip Cartagena Platelet mean volume (Bld) [Entitic vol] 9.2 fL Critically low 9.5-13.5 [facility] Comment on above: Performed By: #### U RCX #### [facility] [address] [address] [address] Dilip Cartagena PLT 285 103/ul Normal 150-450 [facility] Comment on above: Performed By: #### U RCX #### [facility] [address] [address] [address] Dilip Cartagena RBC 3.75 106/ul Critically low 4.20-5.40 [facility] Comment on above: Performed By: #### U RCX #### [facility] [address] [place] [address] Dr. Dilip Cartagena WBC 6.7 103/ul Normal 4.0-11.0 [facility] Comment on above: Performed By: #### U RCX #### [facility] [address] [place] [address] Dr. Dilip Cartagena POINT OF CARE GLUCOSEon 01-03 Glucose [Mass/Vol] 137 mg/dL Critically high 74-106 [facility] Comment on above: Performed By: #### L IPID, BMP, NA #### [facility] [address] [place] [address] Dr. Dilip Cartagena Glucose [Mass/Vol] 125 mg/dL Critically high 74-106 [facility] Comment on above: Performed By: #### U RCX #### [facility] [address] [place] [address] Dr. Dilip Cartagena PROF 14(COMP METB)on 01-17- 022 Albumin [Mass/Vol] 2.9 g/dL Critically low 3.4-5.0 [facility] Comment on above: Performed By: #### U RCX #### [facility] [address] [place] [address] Dr. Dilip Cartagena Albumin/Globulin [Mass ratio] 0.9 {ratio} Normal [facility] Comment on above: Performed By: #### U RCX #### [facility] [address] [address] [address] Dilip Cartagena ALP [Catalytic activity/Vol] 47 U/L Normal 46-116 [facility] Comment on above: Performed By: #### U RCX #### [facility] [address] [address] [address] Dilip Cartagena ALT [Catalytic activity/Vol] 138 U/L Critically high 14-59 [facility] Comment on above: Performed By: #### U RCX #### [facility] [address] [address] [address] Dilip Cartagena Anion gap [Moles/Vol] 11.4 mmol/L Normal [facility] Comment on above: Performed By: #### U RCX #### [facility] [address] [address] [address] Dilip Cartagena AST [Catalytic activity/Vol] 70 U/L Critically high 15-37 [facility] Comment on above: Performed By: #### U RCX #### [facility] [address] [address] [address] Dilip Cartagena Bilirubin [Mass/Vol] 0.4 mg/dL Normal 0.2-1.0 [facility] Comment on above: Performed By: #### U RCX #### [facility] [address] [address] [address] Dilip Cartagena Calcium [Mass/Vol] 8.4 mg/dL Critically low 8.5-10.1 [facility] Comment on above: Performed By: #### U RCX #### [facility] [address] [address] [address] Dilip Cartagena Chloride [Moles/Vol] 103 mmol/L Normal 98-107 [facility] Comment on above: Performed By: #### U RCX #### [facility] [address] [address] [address] Dilip Cartagena CO2 [Moles/Vol] 23.7 mmol/L Normal 21.0-32.0 [facility] Comment on above: Performed By: #### U RCX #### [facility] [address] [address] [address] Dilip Cartagena Creatinine [Mass/Vol] 0.66 mg/dL Normal 0.55-1.02 [facility] Comment on above: Performed By: #### U RCX #### [facility] [address] [address] [address] Dilip Cartagena EGFR-AF CYPRIOT >60 Normal >=60 [facility] Comment on above: Performed By: #### U RCX #### [facility] [address] [place] [address] Dr. Dilip Cartagena EGFR-NON AF CYPRIOT >60 Normal >=60 [facility] Comment on above: Performed By: #### U RCX #### [facility] [address] [place] [address] Dr. Dilip Cartagena Globulin (S) [Mass/Vol] 3.2 g/dL Normal [facility] Comment on above: Performed By: #### U RCX #### [facility] [address] [address] [address] Dilip Cartagena Glucose [Mass/Vol] 111 mg/dL Critically high 74-106 [facility] Comment on above: Performed By: #### U RCX #### [facility] [address] [place] [address] Dr. Dilip Cartagena Potassium [Moles/Vol] 5.1 mmol/L Normal 3.5-5.1 [facility] Comment on above: Performed By: #### U RCX #### [facility] [address] [place] [address] Dr. Dilip Cartagena Protein [Mass/Vol] 6.1 g/dL Critically low 6.4-8.2 [facility] Comment on above: Performed By: #### U RCX #### [facility] [address] [place] [address] Dr. Dilip Cartagena Sodium [Moles/Vol] 133 mmol/L Critically low 136-145 [facility] Comment on above: Performed By: #### U RCX #### [facility] [address] [place] [address] Dr. Dilip Cartagena Urea nitrogen [Mass/Vol] 15.0 mg/dL Normal 7.0-18.0 [facility] Comment on above: Performed By: #### U RCX #### [facility] [address] [place] [address] Dr. Dilip Cartagena Urea nitrogen/Creatinine [Mass ratio] 22.7 mg/mg Normal [facility] Comment on above: Performed By: #### U RCX #### [facility] [address] [place] [address] Dr. Dilip Cartagena T3, TOTAL (TRIIODOTHYRONINE) on 01-17-2022 T3, TOTAL 105 ng/dL Normal 71-180 [facility] Comment on above: Performed By: #### L IPID, BMP, NA #### [facility] [address] [place] [address] Dr. Dilip Cartagena AMYLASEon 01-16-2022 Amylase [Catalytic activity/Vol] 42 U/L Normal 25-115 [facility] Comment on above: Performed By: #### L IPID, BMP, NA #### [facility] [address] [place] [address] Dr. Dilip Cartagena Amylase [Catalytic activity/Vol] 55 U/L Normal 25-115 [facility] Comment on above: Performed By: #### U RCX #### [facility] [address] [place] [address] Dr. Dilip Cartagena Amylase [Catalytic activity/Vol] 52 U/L Normal 25-115 [facility] Comment on above: Performed By: #### P OCGLUC #### [facility] [address] [place] [address] Dr. Dilip Cartagena BLOOD CULTURE ID PANELon A. baumannii Not detected Normal NOT DETECTED [facility] Comment on above: Performed By: #### L IPID, BMP, NA #### [facility] [address] [place] [address] Dr. Dilip Cartagena Bacteriodes fragilis Not detected Normal NOT DETECTED [facility] Comment on above: Performed By: #### L IPID, BMP, NA #### [facility] [address] [address] [address] Dilip Cartagena BCID CONTROLS PASSED [facility] Comment on above: Performed By: #### L IPID, BMP, NA #### [facility] [address] [address] [address] Dilip Cartagena BCIDBTHD BLOOD CULTURE BOTTLE INFORMATION Normal [facility] Comment on above: Performed By: #### L IPID, BMP, NA #### [facility] [address] [address] [address] Dilip Cartagena BCIDHD1 ANTIMICROBIAL RESIST ANCE GENES [facility] Comment on above: Performed By: #### L IPID, BMP, NA #### [facility] [address] [place] [address] Dr. Dilip Cartagena BCIDHD2 SEE BELOW [facility] Comment on above: Result Comment: Note : Antimicrobial resitance can occur via multiple mechanisms. A Not Detected result for the [employer] antomicrobial resistance gene assays does not indicate antimicrobial susceptibility. Subculturing is required for species identification and susceptibility testing of isolates. Performed By: #### L IPID, BMP, NA #### [facility] [address] [address] [address] Dilip Cartagena BCIDHD3 Positive [facility] Comment on above: Performed By: #### L IPID, BMP, NA #### [facility] [address] [place] [address] Dr. Dilip Cartagena BCIDHD4 Negative [facility] Comment on above: Performed By: #### L IPID, BMP, NA #### [facility] [address] [place] [address] Dr. Dilip Cartagena BCIDHD5 YEAST [facility] Comment on above: Performed By: #### L IPID, BMP, NA #### [facility] [address] [place] [address] Dr. Dilip Cartagena Bottle Set: Set 1 [facility] Comment on above: Performed By: #### L IPID, BMP, NA #### [facility] [address] [place] [address] Dr. Dilip Cartagena Bottle: Aerobic Normal [facility] Comment on above: Performed By: #### L IPID, BMP, NA #### [facility] [address] [place] [address] Dr. Dilip Cartagena C. neoformans/gattii Not detected Normal NOT DETECTED [facility] Comment on above: Performed By: #### L IPID, BMP, NA #### [facility] [address] [place] [address] Dr. Dilip Cartagena Neyda albicans Not detected Normal NOT DETECTED [facility] Comment on above: Performed By: #### L IPID, BMP, NA #### [facility] [address] [place] [address] Dr. Dilip Cartagena Neyda auris Not detected Normal NOT DETECTED [facility] Comment on above: Performed By: #### L IPID, BMP, NA #### [facility] [address] [place] [address] Dr. Dilip Cartagena Neyda glabrata Not detected Normal NOT DETECTED [facility] Comment on above: Performed By: #### L IPID, BMP, NA #### [facility] [address] [place] [address] Dr. Dilip Cartagena Neyda Krusei Not detected Normal NOT DETECTED [facility] Comment on above: Performed By: #### L IPID, BMP, NA #### [facility] [address] [place] [address] Dr. Dilip Cartagena Neyda Parapsilosis Not detected Normal NOT DETECTED [facility] Comment on above: Performed By: #### L IPID, BMP, NA #### [facility] [address] [place] [address] Dr. Dilip Cartagena Neyda Tropicalis Not detected Normal NOT DETECTED [facility] Comment on above: Performed By: #### L IPID, BMP, NA #### [facility] [address] [place] [address] Dr. Dilip Cartagena CTX-M Resistant Gene Not Applicable Normal NOT DETECTED [facility] Comment on above: Performed By: #### L IPID, BMP, NA #### [facility] [address] [place] [address] Dr. Dilip Cartagena E. Cloacae complex Not detected Normal NOT DETECTED [facility] Comment on above: Performed By: #### L IPID, BMP, NA #### [facility] [address] [place] [address] Dr. Dilip Cartagena E. faecalis Not detected Normal NOT DETECTED [facility] Comment on above: Performed By: #### L IPID, BMP, NA #### [facility] [address] [place] [address] Dr. Dilip Cartagena E. faecium Not detected Normal NOT DETECTED [facility] Comment on above: Performed By: #### L IPID, BMP, NA #### [facility] [address] [place] [address] Dr. Dilip Cartagena Enterobacteriaceae Not detected Normal NOT DETECTED [facility] Comment on above: Performed By: #### L IPID, BMP, NA #### [facility] [address] [place] [address] Dr. Dilip Cartagena Escherichia coli Not detected Normal NOT DETECTED [facility] Comment on above: Performed By: #### L IPID, BMP, NA #### [facility] [address] [place] [address] Dr. Dilip Cartagena H. influenzae Not detected Normal NOT DETECTED [facility] Comment on above: Performed By: #### L IPID, BMP, NA #### [facility] [address] [place] [address] Dr. Dilip Cartagena IMP Resistant Gene Not Applicable Normal NOT DETECTED [facility] Comment on above: Performed By: #### L IPID, BMP, NA #### [facility] [address] [place] [address] Dr. Dilip Cartagena K. oxytoca Not detected Normal NOT DETECTED [facility] Comment on above: Performed By: #### L IPID, BMP, NA #### [facility] [address] [place] [address] Dr. Dilip Cartagena K. pneumoniae Not detected Normal NOT DETECTED [facility] Comment on above: Performed By: #### L IPID, BMP, NA #### [facility] [address] [place] [address] Dr. Dilip Cartagena Klebsiella aerogenes Not detected Normal NOT DETECTED [facility] Comment on above: Performed By: #### L IPID, BMP, NA #### [facility] [address] [place] [address] Dr. Dilip Cartagena KPC Resistant Gene Not Applicable Normal NOT DETECTED [facility] Comment on above: Performed By: #### L IPID, BMP, NA #### [facility] [address] [place] [address] Dr. Dilip Cartagena List. monocytogenes Not detected Normal NOT DETECTED [facility] Comment on above: Performed By: #### L IPID, BMP, NA #### [facility] [address] [place] [address] Dr. Dilip Cartagena Mcr-1 Resistant Gene Not Applicable Normal NOT DETECTED [facility] Comment on above: Performed By: #### L IPID, BMP, NA #### [facility] [address] [place] [address] Dr. Dilip Cartagnea mecA/C Not Applicable Normal NOT DETECTED [facility] Comment on above: Performed By: #### L IPID, BMP, NA #### [facility] [address] [place] [address] Dr. Dilip Cartagena mecA/C MREJ Not Applicable Normal NOT DETECTED [facility] Comment on above: Performed By: #### L IPID, BMP, NA #### [facility] [address] [place] [address] Dr. Dilip Cartagena N. meningitidis Not detected Normal NOT DETECTED [facility] Comment on above: Performed By: #### L IPID, BMP, NA #### [facility] [address] [place] [address] Dr. Dilip Cartagena NDM Resistant Gene Not Applicable Normal NOT DETECTED [facility] Comment on above: Performed By: #### L IPID, BMP, NA #### [facility] [address] [place] [address] Dr. Dilip Cartagena Oxa-48-like Not Applicable Normal NOT DETECTED [facility] Comment on above: Performed By: #### L IPID, BMP, NA #### [facility] [address] [address] [address] Dilip Cartagena Proteus Not detected Normal NOT DETECTED [facility] Comment on above: Performed By: #### L IPID, BMP, NA #### [facility] [address] [place] [address] Dr. Dilip Cartagena Pseud. aeruginosa Not detected Normal NOT DETECTED [facility] Comment on above: Performed By: #### L IPID, BMP, NA #### [facility] [address] [place] [address] Dr. Dilip Cartagena S. maltophilia Not detected Normal NOT DETECTED [facility] Comment on above: Performed By: #### L IPID, BMP, NA #### [facility] [address] [place] [address] Dr. Dilip Cartagena Salmonella Not detected Normal NOT DETECTED [facility] Comment on above: Performed By: #### L IPID, BMP, NA #### [facility] [address] [place] [address] Dr. Dilip Cartagena Seratia marcescens Not detected Normal NOT DETECTED [facility] Comment on above: Performed By: #### L IPID, BMP, NA #### [facility] [address] [place] [address] Dr. Dilip Cartagena Site: left arm Normal [facility] Comment on above: Performed By: #### L IPID, BMP, NA #### [facility] [address] [place] [address] Dr. Dilip Cartagena Staph. aureus Not detected Normal NOT DETECTED [facility] Comment on above: Performed By: #### L IPID, BMP, NA #### [facility] [address] [place] [address] Dr. Dilip Cartagena Staph. epidermidis Not detected Normal NOT DETECTED [facility] Comment on above: Performed By: #### L IPID, BMP, NA #### [facility] [address] [place] [address] Dr. Dilip Cartagena Staph. lugdunensis Not detected Normal NOT DETECTED [facility] Comment on above: Performed By: #### L IPID, BMP, NA #### [facility] [address] [place] [address] Dr. Dilip Cartagena Staphylococcus Detected Abnormal NOT DETECTED [facility] Comment on above: Performed By: #### L IPID, BMP, NA #### [facility] [address] [place] [address] Dr. Dilip Cartagena Strep. agalactiae Not detected Normal NOT DETECTED [facility] Comment on above: Performed By: #### L IPID, BMP, NA #### [facility] [address] [place] [address] Dr. Dilip Cartagena Strep. pneumoniae Not detected Normal NOT DETECTED [facility] Comment on above: Performed By: #### L IPID, BMP, NA #### [facility] [address] [place] [address] Dr. Dilip Cartagena Strep. pyogenes Not detected Normal NOT DETECTED [facility] Comment on above: Performed By: #### L IPID, BMP, NA #### [facility] [address] [place] [address] Dr. Dilip Cartagena Streptococcus Not detected Normal NOT DETECTED [facility] Comment on above: Performed By: #### L IPID, BMP, NA #### [facility] [address] [place] [address] Dr. Dilip Kumari/Bere Resist. Gene Not Applicable Normal NOT DETECTED [facility] Comment on above: Performed By: #### L IPID, BMP, NA #### [facility] [address] [place] [address] Dr. Dilip Cartagena VIM Resistant Gene Not Applicable Normal NOT DETECTED [facility] Comment on above: Performed By: #### L IPID, BMP, NA #### [facility] [address] [place] [address] Dr. Dilip Cartagena BNPon 01-16-2022 Natriuretic peptide B (Bld) [Mass/Vol] 584.0 pg/mL Normal <=1,800.0 [facility] Comment on above: Performed By: #### P OCGLUC #### [facility] [address] [place] [address] Dr. Dilip Cartagena CARDIAC JON 3-6on 2 CK [Catalytic activity/Vol] 5303 U/L Critically high 26-192 [facility] Comment on above: Performed By: #### C MREP #### [facility] [address] [address] [address] Dilip Cartagena CK.MB [Mass/Vol] 280.92 ng/mL Critically high <=3.60 [facility] Comment on above: Performed By: #### C MREP #### [facility] [address] [address] [address] Dilip Cartagena HSTROP 20.1 pg/mL Normal 4.0-51.3 [facility] Comment on above: Result Comment: CUT- OFF POINTS HAVE BEEN ESTABLISHED BASED ON THE FOURTH UNIVERSAL DEFINITIONS OF MYOCARDIAL INFARCTION. THE UPPER REFERENCE LIMIT (URL) OF TROPONIN, DEFINED THE 99TH PERCENTILE OF cTnI DISTRIBUTION IN A REFERENCE POPULATION, HAS BEEN CONFIRMED THE DECISION THRESHOLD FOR KS DIAGNOSIS. Performed By: #### C MREP #### [facility] [address] [place] [address] Dr. Dilip Cartagena CK [Catalytic activity/Vol] 6224 U/L Critically high 26-192 [facility] Comment on above: Performed By: #### U RCX #### [facility] [address] [place] [address] Dr. Dilip Cartagena CK.MB [Mass/Vol] 341.85 ng/mL Critically high <=3.60 [facility] Comment on above: Performed By: #### U RCX #### [facility] [address] [place] [address] Dr. Dilip Cartagena HSTROP 27.2 pg/mL Normal 4.0-51.3 [facility] Comment on above: Result Comment: CUT- OFF POINTS HAVE BEEN ESTABLISHED BASED ON THE FOURTH UNIVERSAL DEFINITIONS OF MYOCARDIAL INFARCTION. THE UPPER REFERENCE LIMIT (URL) OF TROPONIN, DEFINED THE 99TH PERCENTILE OF cTnI DISTRIBUTION IN A REFERENCE POPULATION, HAS BEEN CONFIRMED THE DECISION THRESHOLD FOR KS DIAGNOSIS. Performed By: #### U RCX #### [facility] [address] [address] [address] Dilip Cartagena CARDIAC JON ADMITon 022 CK [Catalytic activity/Vol] 6161 U/L Critically high 26-192 [facility] Comment on above: Performed By: #### U RCX #### [facility] [address] [place] [address] Dr. Dilip Cartagena CK.MB [Mass/Vol] 314.21 ng/mL Critically high <=3.60 [facility] Comment on above: Performed By: #### U RCX #### [facility] [address] [place] [address] Dr. Dilip Cartagena HSTROP 27.5 pg/mL Normal 4.0-51.3 [facility] Comment on above: Result Comment: CUT- OFF POINTS HAVE BEEN ESTABLISHED BASED ON THE FOURTH UNIVERSAL DEFINITIONS OF MYOCARDIAL INFARCTION. THE UPPER REFERENCE LIMIT (URL) OF TROPONIN, DEFINED THE 99TH PERCENTILE OF cTnI DISTRIBUTION IN A REFERENCE POPULATION, HAS BEEN CONFIRMED THE DECISION THRESHOLD FOR KS DIAGNOSIS. Performed By: #### U RCX #### [facility] [address] [place] [address] Dr. Dilip Cartagena REESE 3384 ng/mL Critically high 9-82 [facility] Comment on above: Performed By: #### U RCX #### [facility] [address] [place] [address] Dr. Dilip Cartagena CBC AUTO DIFFon 01-16-2022 BASO # 0.0 103/ul Normal 0.0-0.1 [facility] Comment on above: Performed By: #### P OCGLUC #### [facility] [address] [place] [address] Dr. Dilip Cartagena Basophils/100 WBC (Bld) 0.3 % Normal 0.2-2.0 [facility] Comment on above: Performed By: #### P OCGLUC #### [facility] [address] [place] [address] Dr. Dilip Cartagena EO # 0.1 103/ul Normal 0.0-0.7 [facility] Comment on above: Performed By: #### P OCGLUC #### [facility] [address] [address] [address] Dilip Cartagena Eosinophils/100 WBC (Bld) 1.2 % Normal 0.9-7.0 [facility] Comment on above: Performed By: #### P OCGLUC #### [facility] [address] [place] [address] Dr. Dilip Cartagena Erythrocyte distribution width (RBC) [Ratio] 13.9 % Normal 11.0-15.0 [facility] Comment on above: Performed By: #### P OCGLUC #### [facility] [address] [place] [address] Dr. Dilip Cartagena Hematocrit (Bld) [Volume fraction] 40.2 % Normal 36.0-48.0 [facility] Comment on above: Performed By: #### P OCGLUC #### [facility] [address] [place] [address] Dr. Dilip Cartagena Hemoglobin (Bld) [Mass/Vol] 12.8 g/dL Normal 12.0-16.0 [facility] Comment on above: Performed By: #### P OCGLUC #### [facility] [address] [place] [address] Dr. Dilip Cartagena IG # 0.07 10e3/ul Critically high 0.00-0.03 [facility] Comment on above: Performed By: #### P OCGLUC #### [facility] [address] [place] [address] Dr. Dilip Cartagena IG % 0.7 % Critically high 0.0-0.5 [facility] Comment on above: Performed By: #### P OCGLUC #### [facility] [address] [place] [address] Dr. Dilip Cartagena LYMPH # 2.5 103/ul Normal 1.2-3.8 [facility] Comment on above: Performed By: #### P OCGLUC #### [facility] [address] [place] [address] Dr. Dilip Cartagena Lymphocytes/100 WBC (Bld) 26.2 % Normal 20.5-60.0 [facility] Comment on above: Performed By: #### P OCGLUC #### [facility] [address] [address] [address] Dilip Cartagena MANUAL DIFF REQ NO Normal [facility] Comment on above: Performed By: #### P OCGLUC #### [facility] [address] [address] [address] Dilip Cartagena MCH (RBC) [Entitic mass] 30.2 pg Normal 26.7-34.0 [facility] Comment on above: Performed By: #### P OCGLUC #### [facility] [address] [address] [address] Dilip Cartagena MCHC (RBC) [Mass/Vol] 31.8 g/dL Normal 29.9-35.2 [facility] Comment on above: Performed By: #### P OCGLUC #### [facility] [address] [place] [address] Dr. Dilip Cartagena MCV (RBC) [Entitic vol] 94.8 fL Normal 81.0-99.0 [facility] Comment on above: Performed By: #### P OCGLUC #### [facility] [address] [place] [address] Dr. Dilip Cartagena MONO # 0.6 103/ul Normal 0.3-0.8 [facility] Comment on above: Performed By: #### P OCGLUC #### [facility] [address] [place] [address] Dr. Dilip Cartagena Monocytes/100 WBC (Bld) 6.0 % Normal 1.7-12.0 [facility] Comment on above: Performed By: #### P OCGLUC #### [facility] [address] [place] [address] Dr. Dilip Cartagena NEUT # 6.1 103/ul Normal 1.4-6.5 [facility] Comment on above: Performed By: #### P OCGLUC #### [facility] [address] [place] [address] Dr. Dilip Cartagena Neutrophils/100 WBC (Bld) 65.6 % Normal 43.0-75.0 [facility] Comment on above: Performed By: #### P OCGLUC #### [facility] [address] [address] [address] Dilip Cartagena Platelet mean volume (Bld) [Entitic vol] 8.7 fL Critically low 9.5-13.5 [facility] Comment on above: Performed By: #### P OCGLUC #### [facility] [address] [place] [address] Dr. Dilip Cartagena PLT 335 103/ul Normal 150-450 [facility] Comment on above: Performed By: #### P OCGLUC #### [facility] [address] [address] [address] Dilip Cartagena RBC 4.24 106/ul Normal 4.20-5.40 [facility] Comment on above: Performed By: #### P OCGLUC #### [facility] [address] [place] [address] Dr. Dilip Cartagena WBC 9.4 103/ul Normal 4.0-11.0 [facility] Comment on above: Performed By: #### P OCGLUC #### [facility] [address] [place] [address] ABD/PELV W CONon [...] Manuelito MARTINEZ Date: 2022-01-16 05:33 Normal [facility] CULTURE BLOODon 01-16-2022 Microscopic examination of blood, culture Culture Observations: NO GROWTH AT 5 DAYS. Isolate 1 [id number] Normal [facility] Comment on above: Performed By: #### L IPID, BMP, NA #### [facility] [address] [place], [place] [address] Dr. Dilip Cartagena CULTURE URINEon 01-16-2022 CULTURE URINE Culture Observations : NO GROWTH. Normal [facility] Comment on above: Performed By: #### U RCX #### [facility] [address], [place] [address] Dr. Dilip Cartagena Covid-19 PCR ([facility])on 01-03 SARS-CoV-2 (COVID-19) RNA NAKUL+probe Ql (Unsp spec) Not detected Normal NOT DETECTED [facility] Comment on above: Result Comment: When diagnostic [...] for this test is supported by the [place] of [employer] and Human Service's declaration that [...] used). Performed By: #### U RCX #### [facility] [address] [place] [address] Dr. Dilip Cartagena ECHO LIMITED STUDYon -14-2 022 ECHO LIMITED STUDY Patient: ELOISA ELIZALDE Exam Date: 01/16/2022 : 1940 Gender:F Ordering : DR CECILY VIEIRA . Admission #: [id number] Family : JIM TOBAR [facility] Order #: [id number] CLICK HERE TO VIEW EXAM ECHOCARDIOGRAM REPORT [...] M.D. on 01/16/2022 at 14:35 Normal [facility] LACTATE/LACTIC ACIDon 2021 Lactate [Moles/Vol] 0.7 mmol/L Normal 0.4-1.9 [facility] Comment on above: Performed By: #### U RCX #### [facility] [address] [place] [address] Dr. Dilip Cartagena Lactate [Moles/Vol] 1.5 mmol/L Normal 0.4-1.9 [facility] Comment on above: Performed By: #### U RCX #### [facility] [address] [place] [address] Dr. Dilip Cartagena LIPASEon 01-16-2022 Lipase [Catalytic activity/Vol] 59.0 U/L Critically low 73.0-393.0 [facility] Comment on above: Performed By: #### L IPID, BMP, NA #### [facility] [address] [place] [address] Dr. Dilip Cartagena Lipase [Catalytic activity/Vol] 118.0 U/L Normal 73.0-393.0 [facility] Comment on above: Performed By: #### U RCX #### [facility] [address] [address] [address] Dilip Cartagena Lipase [Catalytic activity/Vol] 101.0 U/L Normal 73.0-393.0 [facility] Comment on above: Performed By: #### P OCGLUC #### [facility] [address] [address] [address] Dilip Cartagena POINT OF CARE GLUCOSEon 01-03 Glucose [Mass/Vol] 168 mg/dL Critically high 74-106 [facility] Comment on above: Performed By: #### P OCGLUC #### [facility] [address] [address] [address] Dilip Cartagena Glucose [Mass/Vol] 106 mg/dL Normal 74-106 [facility] Comment on above: Performed By: #### L IPID, BMP, NA #### [facility] [address] [place] [address] Dr. Dilip Cartagena Glucose [Mass/Vol] 221 mg/dL Critically high 74-106 [facility] Comment on above: Performed By: #### L IPID, BMP, NA #### [facility] [address] [place] [address] Dr. Dilip Cartagena PROF 14(COMP METB)on 022 Albumin [Mass/Vol] 3.8 g/dL Normal 3.4-5.0 [facility] Comment on above: Performed By: #### U RCX #### [facility] [address] [place] [address] Dr. Dilip Cartagena Albumin/Globulin [Mass ratio] 1.2 {ratio} Normal [facility] Comment on above: Performed By: #### U RCX #### [facility] [address] [place] [address] Dr. Dilip Cartagena ALP [Catalytic activity/Vol] 52 U/L Normal 46-116 [facility] Comment on above: Performed By: #### U RCX #### [facility] [address] [address] [address] Dilip Cartagena ALT [Catalytic activity/Vol] 194 U/L Critically high 14-59 [facility] Comment on above: Performed By: #### U RCX #### [facility] [address] [address] [address] Dilip Cartagena Anion gap [Moles/Vol] 13.5 mmol/L Normal Th e [facility] Comment on above: Performed By: #### U RCX #### [facility] [address] [address] [address] Dilip Cartagena AST [Catalytic activity/Vol] 110 U/L Critically high 15-37 [facility] Comment on above: Performed By: #### U RCX #### [facility] [address] [address] [address] Dilip Cartagena Bilirubin [Mass/Vol] 0.4 mg/dL Normal 0.2-1.0 [facility] Comment on above: Performed By: #### U RCX #### [facility] [address] [address] [address] Dilip Cartagena Calcium [Mass/Vol] 8.9 mg/dL Normal 8.5-10.1 [facility] Comment on above: Performed By: #### U RCX #### [facility] [address] [address] [address] Dilip Cartagena Chloride [Moles/Vol] 99 mmol/L Normal 98-107 [facility] Comment on above: Performed By: #### U RCX #### [facility] [address] [address] [address] Dilip Cartagena CO2 [Moles/Vol] 26.1 mmol/L Normal 21.0-32.0 [facility] Comment on above: Performed By: #### U RCX #### [facility] [address] [address] [address] Dilip Cartagena Creatinine [Mass/Vol] 0.93 mg/dL Normal 0.55-1.02 [facility] Comment on above: Performed By: #### U RCX #### [facility] [address] [address] [address] Dilip Cartagena EGFR-AF CYPRIOT >60 Normal >=60 [facility] Comment on above: Performed By: #### U RCX #### [facility] [address] [address] [address] Dilip Cartagena EGFR-NON AF CYPRIOT 58 mL/min/1.73m2 Critically low >=60 [facility] Comment on above: Performed By: #### U RCX #### [facility] [address] [address] [address] Dilip Cartagena Globulin (S) [Mass/Vol] 3.3 g/dL Normal [facility] Comment on above: Performed By: #### U RCX #### [facility] [address] [address] [address] Dilip Cartagena Glucose [Mass/Vol] 143 mg/dL Critically high 74-106 T [facility] Comment on above: Performed By: #### U RCX #### [facility] [address] [address] [address] Dilip Cartagena Potassium [Moles/Vol] 4.6 mmol/L Normal 3.5-5.1 [facility] Comment on above: Performed By: #### U RCX #### [facility] [address] [address] [address] Dilip Cartagena Protein [Mass/Vol] 7.1 g/dL Normal 6.4-8.2 [facility] Comment on above: Performed By: #### U RCX #### [facility] [address] [address] [address] Dilip Cartagena Sodium [Moles/Vol] 134 mmol/L Critically low 136-145 [facility] Comment on above: Performed By: #### U RCX #### [facility] [address] [address] [address] Dilip Cartagena Urea nitrogen [Mass/Vol] 21.0 mg/dL Critically high 7.0-18.0 [facility] Comment on above: Performed By: #### U RCX #### [facility] [address] [address] [address] Dilip Cartagena Urea nitrogen/Creatinine [Mass ratio] 22.6 mg/mg Normal [facility] Comment on above: Performed By: #### U RCX #### [facility] [address] [place] [address] Dr. Dilip Cartagena T4on 01-16-2022 T4 [Mass/Vol] 10.90 ug/dL Normal 4.80-13.90 [facility] Comment on above: Performed By: #### P OCGLUC #### [facility] [address] [place] [address] Dr. Dilip Cartagena TSHon 01-16-2022 TSH 3.536 uIU/mL Normal 0.358-3.74 0 [facility] Comment on above: Performed By: #### P OCGLUC #### [facility] [address] [place] [address] Dr. Dilip Cartagena UA RANDOM W/MICROSCOPICon BACTERIA TRACE Abnormal NONE SEEN [facility] Comment on above: Performed By: #### U RCX #### [facility] [address] [place] [address] Dr. Dilip Cartagena Bilirubin Ql (U) Negative Normal NEGATIVE [facility] Comment on above: Performed By: #### U RCX #### [facility] [address] [place] [address] Dr. Dilip Cartagena CAST NONE SEEN Normal NONE SEEN [facility] Comment on above: Performed By: #### U RCX #### [facility] [address] [place] [address] Dr. Dilip Cartagena Clarity (U) CLEAR Normal CLEAR [facility] Comment on above: Performed By: #### U RCX #### [facility] [address] [place] [address] Dr. Dilip Cartagena Color (U) DK. ORANGE Abnormal YELLOW [facility] Comment on above: Performed By: #### U RCX #### [facility] [address] [place] [address] Dr. Dilip Cartagena Crystals LM Nom (Urine sed) NONE SEEN Normal NONE SEEN [facility] Comment on above: Performed By: #### U RCX #### [facility] [address] [place] [address] Dr. Dilip Cartagena Epithelial cells LM Ql (Urine sed) RARE Normal NONE SEEN /RARE [facility] Comment on above: Performed By: #### U RCX #### [facility] [address] [place] [address] Dr. Dilip Cartagena Glucose Ql (U) Negative Normal NEGATIVE [facility] Comment on above: Performed By: #### U RCX #### [facility] [address] [place] [address] Dr. Dilip Cartgaena Hemoglobin Ql (U) SMALL Abnormal NEGATIVE [facility] Comment on above: Performed By: #### U RCX #### [facility] [address] [place] [address] Dr. Dilip Cartagena Ketones Ql (U) 40 mg/dl Abnormal NEGATIVE [facility] Comment on above: Performed By: #### U RCX #### [facility] [address] [place] [address] Dr. Dilip Cartagena LEUKOCYTES TRACE Abnormal NEGATIVE [facility] Comment on above: Performed By: #### U RCX #### [facility] [address] [place] [address] Dr. Dilip Cartagena MUCOUS NONE SEEN Normal NONE SEEN [facility] Comment on above: Performed By: #### U RCX #### [facility] [address] [place] [address] Dr. Dilip Cartagena Nitrite Ql (U) Positive Abnormal NEGATIVE [facility] Comment on above: Performed By: #### U RCX #### [facility] [address] [place] [address] Dr. Dilip Cartagena pH (U) 6.5 [pH] Normal 5-9 [facility] Comment on above: Performed By: #### U RCX #### [facility] [address] [place] [address] Dr. Dilip Cartagena RBC 0-2 Normal 0-2 [facility] Comment on above: Performed By: #### U RCX #### [facility] [address] [place] [address] Dr. Dilip Cartagena SPEC GRAVITY 1.010 Normal 1.005-<=1. 025 [facility] Comment on above: Performed By: #### U RCX #### [facility] [address] [address] [address] Dilip Cartagena UA PROTEIN TRACE Normal NEGATIVE/ TRACE [facility] Comment on above: Performed By: #### U RCX #### [facility] [address] [address] [address] Dilip Cartagena Urobilinogen Qn (U) 0.2 {Hallie'U}/dL Normal 0.2 - 1. 0 [facility] Comment on above: Performed By: #### U RCX #### [facility] [address] [address] [address] Dilip Cartagena WBC 2-5 Abnormal NONE SEEN [facility] Comment on above: Performed By: #### U RCX #### [facility] [address] [place] [address] Dr. Dilip Cartagena US SINGLE QUAD RT [...] LORETTA ORELLANA Date: 2022-01-16 08:00 Normal [facility] US BEV DOP LEG LTon 01-17-20 US [...] LORETTA ORELLANA Date: 2022-01-16 07:58 Normal [facility] XR CHEST 2 Von 01-16-2022 XR CHEST [...] JOHANN PARKS Date: 2022-01-16 05:12 Normal [facility] CULTURE URINEon 01-03-2022 CULTURE URINE Isolate 1 [...] Trimethoprim/Sulfamethoxazo le <=20 S F Normal [facility] Comment on above: Performed By: #### U RCX #### [facility] [address] [place] [address] Dr. Dilip Cartagena UA RANDOM W/MICROSCOPICon BACTERIA MODERATE Abnormal NONE SEEN [facility] Comment on above: Performed By: #### U RCX #### [facility] [address] [place] [address] Dr. Dilip Cartagena Bilirubin Ql (U) Negative Normal NEGATIVE [facility] Comment on above: Performed By: #### U RCX #### [facility] [address] [address] [address] Dilip Cartagena CAST NONE SEEN Normal NONE SEEN [facility] Comment on above: Performed By: #### U RCX #### [facility] [address] [address] [address] Dilip Cartagena Clarity (U) SL CLOUDY Abnormal CLEAR [facility] Comment on above: Performed By: #### U RCX #### [facility] [address] [address] [address] Dilip Cartagena Color (U) YELLOW Normal YELLOW [facility] Comment on above: Performed By: #### U RCX #### [facility] [address] [place] [address] Dr. Dilip Cartagena Crystals LM Nom (Urine sed) NONE SEEN Normal NONE SEEN [facility] Comment on above: Performed By: #### U RCX #### [facility] [address] [place] [address] Dr. Dilip Cartagena Epithelial cells LM Ql (Urine sed) FEW Abnormal NONE SEEN /RARE [facility] Comment on above: Performed By: #### U RCX #### [facility] [address] [place] [address] Dr. Dilip Cartagena Glucose Ql (U) Negative Normal NEGATIVE [facility] Comment on above: Performed By: #### U RCX #### [facility] [address] [place] [address] Dr. Dilip Cartagena Hemoglobin Ql (U) SMALL Abnormal NEGATIVE [facility] Comment on above: Performed By: #### U RCX #### [facility] [address] [place] [address] Dr. Dilip Cartagena Ketones Ql (U) Negative Normal NEGATIVE [facility] Comment on above: Performed By: #### U RCX #### [facility] [address] [place] [address] Dr. Dilip Cartagena LEUKOCYTES LARGE Abnormal NEGATIVE [facility] Comment on above: Performed By: #### U RCX #### [facility] [address] [place] [address] Dr. Dilip Cartagena MUCOUS NONE SEEN Normal NONE SEEN [facility] Comment on above: Performed By: #### U RCX #### [facility] [address] [place] [address] Dr. Dilip Cartagena Nitrite Ql (U) Negative Normal NEGATIVE [facility] Comment on above: Performed By: #### U RCX #### [facility] [address] [place] [address] Dr. Dilip Cartagena pH (U) 8.5 [pH] Normal 5-9 [facility] Comment on above: Performed By: #### U RCX #### [facility] [address] [place] [address] Dr. Dilip Cartagena RBC 0-2 Normal 0-2 [facility] Comment on above: Performed By: #### U RCX #### [facility] [address] [place] [address] Dr. Dilip Cartagena SPEC GRAVITY 1.010 Normal 1.005-<=1. 025 [facility] Comment on above: Performed By: #### U RCX #### [facility] [address] [place] [address] Dr. Dilip Cartagena UA PROTEIN TRACE Normal NEGATIVE/ TRACE [facility] Comment on above: Performed By: #### U RCX #### [facility] [address] [place] [address] Dr. Dilip Cartagena Urobilinogen Qn (U) 0.2 {Hallie'U}/dL Normal 0.2 - 1. 0 [facility] Comment on above: Performed By: #### U RCX #### [facility] [address] [place] [address] Dr. Dilip Cartagena WBC 2-5 Abnormal NONE SEEN [facility] Comment on above: Performed By: #### U RCX #### [facility] [address] [place] [address] Dr. Dilip Cartagena CULTURE URINEon 12-22-2021 CULTURE URINE Culture Observations : LIGHT GROWTH OF MIXED GENITAL JAVON. NO POTENTIAL PATHOGENS SEEN. Normal [facility] Comment on above: Performed By: #### U RCX #### [facility] [address] [place] [address] Dr. Dilip Cartagena UA RANDOM W/MICROSCOPICon BACTERIA NONE SEEN Normal NONE SEEN [facility] Comment on above: Performed By: #### P OCGLUC #### [facility] [address] [address] [address] Dilip Cartagena Bilirubin Ql (U) Negative Normal NEGATIVE [facility] Comment on above: Performed By: #### P OCGLUC #### [facility] [address] [address] [address] Dilip Cartagena CAST NONE SEEN Normal NONE SEEN [facility] Comment on above: Performed By: #### P OCGLUC #### [facility] [address] [address] [address] Dilip Cartagena Clarity (U) CLEAR Normal CLEAR [facility] Comment on above: Performed By: #### P OCGLUC #### [facility] [address] [place] [address] Dr. Dilip Cartagena Color (U) LT. YELLOW Normal YELLOW [facility] Comment on above: Performed By: #### P OCGLUC #### [facility] [address] [place] [address] Dr. Dilip Cartagena Crystals LM Nom (Urine sed) NONE SEEN Normal NONE SEEN [facility] Comment on above: Performed By: #### P OCGLUC #### [facility] [address] [place] [address] Dr. Dilip Cartagena Epithelial cells LM Ql (Urine sed) FEW Abnormal NONE SEEN /RARE [facility] Comment on above: Performed By: #### P OCGLUC #### [facility] [address] [place] [address] Dr. Dilip Cartagena Glucose Ql (U) Negative Normal NEGATIVE [facility] Comment on above: Performed By: #### P OCGLUC #### [facility] [address] [address] [address] Dilip Cartagena Hemoglobin Ql (U) Negative Normal NEGATIVE [facility] Comment on above: Performed By: #### P OCGLUC #### [facility] [address] [place] [address] Dr. Dilip Cartagena Ketones Ql (U) Negative Normal NEGATIVE [facility] Comment on above: Performed By: #### P OCGLUC #### [facility] [address] [place] [address] Dr. Dilip Cartagena LEUKOCYTES Negative Normal NEGATIVE [facility] Comment on above: Performed By: #### P OCGLUC #### [facility] [address] [place] [address] Dr. Dilip Cartagena MUCOUS NONE SEEN Normal NONE SEEN [facility] Comment on above: Performed By: #### P OCGLUC #### [facility] [address] [place] [address] Dr. Dilip Cartagena Nitrite Ql (U) Negative Normal NEGATIVE [facility] Comment on above: Performed By: #### P OCGLUC #### [facility] [address] [place] [address] Dr. Dilip Cartagena pH (U) 6.0 [pH] Normal 5-9 [facility] Comment on above: Performed By: #### P OCGLUC #### [facility] [address] [place] [address] Dr. Dilip Cartagena RBC NONE SEEN Abnormal 0-2 [facility] Comment on above: Performed By: #### P OCGLUC #### [facility] [address] [place] [address] Dr. Dilip Cartagena SPEC GRAVITY 1.005 Normal 1.005-<=1. 025 [facility] Comment on above: Performed By: #### P OCGLUC #### [facility] [address] [place] [address] Dr. Dilip Cartagena UA PROTEIN Negative Normal NEGATIVE/ TRACE [facility] Comment on above: Performed By: #### P OCGLUC #### [facility] [address] [place] [address] Dr. Dilip Cartagena Urobilinogen Qn (U) 0.2 {Hallie'U}/dL Normal 0.2 - 1. 0 [facility] Comment on above: Performed By: #### P OCGLUC #### [facility] [address] [place] [address] Dr. Dilip Cartagena WBC NONE SEEN Normal NONE SEEN [facility] Comment on above: Performed By: #### P OCGLUC #### [facility] [address] [address] [address] Dilip Cartagena CULTURE URINEon 12-07-2021 CULTURE [...] Trimethoprim/Sulfamethoxazo le <=20 S F Normal [facility] Comment on above: Performed By: #### U RCX #### [facility] [address] [place] [address] Dr. Dilip Cartagena UA RANDOM W/MICROSCOPICon BACTERIA LARGE Abnormal NONE SEEN [facility] Comment on above: Performed By: #### P OCGLUC #### [facility] [address] [place] [address] Dr. Dilip Cartagena Bilirubin Ql (U) SMALL Abnormal NEGATIVE [facility] Comment on above: Performed By: #### P OCGLUC #### [facility] [address] [address] [address] Dilip Cartagena CAST NONE SEEN Normal NONE SEEN [facility] Comment on above: Performed By: #### P OCGLUC #### [facility] [address] [address] [address] Dilip Cartagena Clarity (U) CLEAR Normal CLEAR [facility] Comment on above: Performed By: #### P OCGLUC #### [facility] [address] [place] [address] Dr. Dilip Cartagena Color (U) DK. ORANGE Abnormal YELLOW [facility] Comment on above: Performed By: #### P OCGLUC #### [facility] [address] [place] [address] Dr. Dilip Cartagena Crystals LM Nom (Urine sed) NONE SEEN Normal NONE SEEN [facility] Comment on above: Performed By: #### P OCGLUC #### [facility] [address] [place] [address] Dr. Dilip Cartagena Epithelial cells LM Ql (Urine sed) FEW Abnormal NONE SEEN /RARE [facility] Comment on above: Performed By: #### P OCGLUC #### [facility] [address] [place] [address] Dr. Dilip Cartagena Glucose Ql (U) 100 mg/dl Abnormal NEGATIVE [facility] Comment on above: Performed By: #### P OCGLUC #### [facility] [address] [place] [address] Dr. Dilip Cartagena Hemoglobin Ql (U) LARGE Abnormal NEGATIVE [facility] Comment on above: Performed By: #### P OCGLUC #### [facility] [address] [place] [address] Dr. Dilip Cartagena Ketones Ql (U) TRACE Abnormal NEGATIVE [facility] Comment on above: Performed By: #### P OCGLUC #### [facility] [address] [place] [address] Dr. Dilip Cartagena LEUKOCYTES SMALL Abnormal NEGATIVE [facility] Comment on above: Performed By: #### P OCGLUC #### [facility] [address] [place] [address] Dr. Dilip Cartagena MUCOUS NONE SEEN Normal NONE SEEN [facility] Comment on above: Performed By: #### P OCGLUC #### [facility] [address] [address] [address] Dilip Cartagena Nitrite Ql (U) Positive Abnormal NEGATIVE [facility] Comment on above: Performed By: #### P OCGLUC #### [facility] [address] [place] [address] Dr. Dilip Cartagena pH (U) 8.0 [pH] Normal 5-9 [facility] Comment on above: Performed By: #### P OCGLUC #### [facility] [address] [place] [address] Dr. Dilip Cartagena RBC 50-75 Abnormal 0-2 [facility] Comment on above: Performed By: #### P OCGLUC #### [facility] [address] [place] [address] Dr. Dilip Cartagena SPEC GRAVITY <=1.005 Abnormal 1.005-<=1. 025 [facility] Comment on above: Performed By: #### P OCGLUC #### [facility] [address] [place] [address] Dr. Dilip Cartagena UA PROTEIN >300 Abnormal NEGATIVE/ TRACE [facility] Comment on above: Performed By: #### P OCGLUC #### [facility] [address] [place] [address] Dr. Dilip Cartagena Urobilinogen Qn (U) 1.0 {Hallie'U}/dL Normal 0.2 - 1. 0 [facility] Comment on above: Performed By: #### P OCGLUC #### [facility] [address] [place] [address] Dr. Dilip Cartagena WBC 10-20 Abnormal NONE SEEN [facility] Comment on above: Performed By: #### P OCGLUC #### [facility] [address] [place] [address] Dr. Dilip Cartagena XR KNEE CATRACHITO 4V [...] by: ERIC BERRY Date: 2021-12-04 15:[address] [facility] MAMM SCREEN 3D CATRACHITO CADon 10-29-2021 MG MAMM SCREEN 3D CATRACHITO CAD Patient: JAMARI ELIZALDE Exam Date: 10/29/2021 : 1940 Gender:F Ordering : DR KILO CHAVEZ M.D. Admission #: [id number] Family : Order #: [id number] CLICK HERE TO VIEW EXAM RADIOLOGY REPORT [...] breast cancer at age 71. LOCATION: [facility] BREAST COMPOSITION: Heterogeneously dense,which may obscure small [...] Berry M.D. on 10/30/2021 at 15:42 Normal [facility] XR DEXA BONE DENSITYon 10-29 XR [...] by: ERIC BERRY Date: 2021-10-29 17:24 Normal [facility] COVID-19 Positive/Negativeon 08-06-2020 SARS-CoV-2 (COVID-19) N gene NAKUL+probe Ql (Resp) Negative Negative [facility] Comment on above: Testing for SARS-CoV -2 by RT-PCRThis test was developed and its performance characteristics determined by [employer] ([employer] and validated at the [facility]. This test has not been FDA cleared [...] (COVID-19) RNA NAKUL+probe Ql (Unsp spec) N/A [facility] Vital Signs Date Time Vital Sign Value Performing Clinician Faci lity 09-25-2022 10:35-0400 Diastolic blood pressure 82 mm[Hg] PHYSICIAN NO [facility] 09-25-2022 10:35-0400 Heart rate 95 /min PHYSICIAN NO [facility] 09-25-2022 10:35-0400 Respiratory rate 16 /min PHYSICIAN NO [facility] 09-25-2022 10:35-0400 SaO2% (BldA) [Mass fraction] 99 % PHYSICIAN NO [facility] 09-25-2022 10:35-0400 Systolic blood pressure 161 mm[Hg] PHYSICIAN NO [facility] 09-25-2022 07:39-0400 Body height 165.1 cm PHYSICIAN NO [facility] 09-25-2022 07:39-0400 Body weight 63.5 kg PHYSICIAN NO [facility] 08-07-2022 11:06-0400 Blood Pressure Location Ivana Lue [facility] 08-07-2022 11:06-0400 Diastolic blood pressure 64 mm[Hg] Ivana Lue [facility] 08-07-2022 11:06-0400 Heart rate 67 /min Ivana Lue [facility] 08-07-2022 11:06-0400 Systolic blood pressure 132 mm[Hg] Ivana Lue [facility] 07-15-2022 10:25-0400 Blood Pressure Location Ivana Lue [facility] 07-15-2022 10:25-0400 Diastolic blood pressure 67 mm[Hg] Ivana Lue [facility] 07-15-2022 10:25-0400 Heart rate 108 /min Ivana Lue [facility] 07-15-2022 10:25-0400 Systolic blood pressure 144 mm[Hg] Ivana Lue [facility] 07-01-2022 08:21-0400 Blood Pressure Location Ivana Lue [facility] 07-01-2022 08:21-0400 Diastolic blood pressure 61 mm[Hg] Ivana Lue [facility] 07-01-2022 08:21-0400 Heart rate 90 /min Ivana Lue [facility] 07-01-2022 08:21-0400 Systolic blood pressure 118 mm[Hg] Ivana Lue [facility] 06-03-2022 07:53-0500 Diastolic blood pressure 70 mm[Hg] II Kilo Chavez Work Phone: [facility] 06-03-2022 07:53-0500 Heart rate 89 /min II Kilo Chavez Work Phone: [facility] 06-03-2022 07:53-0500 Respiratory rate 16 /min II Kilo Chavez Work Phone: [facility] 06-03-2022 07:53-0500 SaO2% (BldA) [Mass fraction] 96 % II Kilo Chavez Work Phone: [facility] 06-03-2022 07:53-0500 Systolic blood pressure 155 mm[Hg] II Kilo Chavez Work Phone: [facility] 06-02-2022 17:00-0500 Body height 162.56 cm II Kilo Chavez Work Phone: [facility] 06-02-2022 17:00-0500 Body temperature 97.6 [degF] II Kilo Chavez Work Phone: [facility] 06-02-2022 17:00-0500 Body weight 72.57 kg II Kilo Chavez Work Phone: [facility] Encounters Encounter Date Encounter Type Care Provider Facility Start: 07-06-2023 ambulatory SEBASTIÁN E LANDY [facility]ili [facility] Start: 06-08-2023 End: 06-09-2023 ambulatory SEBASTIÁN E LANDY Facility:[facility] [place] Start: 05-11-2023 End: 05-12-2023 ambulatory SEBASTIÁN E LANDY Facility:[facility] Start: 04-13-2023 End: 04-14-2023 ambulatory SEBASTIÁN E LANDY Facility:[facility] [place] Start: 04-13-2023 End: 04-13-2023 Patient encounter procedure SEBASTIÁN E LANDY [facility] [place] Start: 04-08-2023 End: 04-08-2023 ambulatory JEFF Sheets MEDELLIN Not Available Start: 03-31-2023 End: 03-31-2023 ambulatory FOZIA CHYNA Not Available Start: 03-16-2023 End: 03-17-2023 ambulatory SEBASTIÁN E LANDY Facility:[facility] Start: 03-16-2023 End: 03-16-2023 Patient encounter procedure SEBASTIÁN E LANDY [facility] [place] Start: 02-16-2023 End: 02-17-2023 ambulatory SEBASTIÁN E LANDY Facility:[facility] Start: 01-19-2023 End: 01-20-2023 ambulatory SEBASTIÁN E LANDY Facility:[facility] [place] Start: 12-22-2022 End: 12-23-2022 ambulatory Ivana Hernandez Facility:[facility] [place] Start: 12-22-2022 End: 12-22-2022 Patient encounter procedure Ivana M. Lue [facility] [place] Start: 11-25-2022 End: 11-26-2022 ambulatory Ivana M. Lue Facility:[facility] [place] Start: 11-25-2022 End: 11-25-2022 Patient encounter procedure Ivana M. Lue [facility] [place] Start: 11-10-2022 ambulatory Jose Manuel Lorenzoi ty:[facility] [place] Start: 10-26-2022 End: 10-27-2022 ambulatory Ivana M. Lue Facility:[facility] Start: 10-15-2022 ambulatory Ivana M. Lue Facility:[facility] [place] Start: 10-12-2022 End: 10-13-2022 ambulatory Ivana M. Lue Facility:[facility] Start: 10-12-2022 End: 10-12-2022 Patient encounter procedure Ivana M. Lue [facility] Start: 09-30-2022 End: 10-01-2022 ambulatory Ivana M. Lue Facility:[facility] [place] Start: 09-30-2022 End: 09-30-2022 Patient encounter procedure Ivana M. Lue [facility] [place] Start: 09-30-2022 End: 10-01-2022 ambulatory Ivana M. Lue Facility:[facility] Start: 09-30-2022 End: 09-30-2022 [facility] Start: 09-25-2022 End: 09-25-2022 ambulatory Pipe Sanchez Facility:[facility] Start: 09-25-2022 End: 09-25-2022 Admission to same day surgery center PHYSICIAN NO [facility] Work Phone: Start: 09-25-2022 End: 09-25-[address] [facility] Work Phone: Start: 09-23-2022 ambulatory Ivana Hernandez Facility:[facility] [place] Start: 09-01-2022 End: 09-02-2022 ambulatory FLOATMAN FOZIATremaine TOBAR Facility:[facility] Start: 08-26-2022 ambulatory SEBASTIÁN E LANDY Facili ty:[facility] [place] Start: 08-26-2022 End: 08-27-2022 ambulatory SEBASTIÁN E LANDY Facility:[facility] [place] Start: 08-07-2022 End: 08-08-2022 ambulatory Ivana Hernandez Facility:[facility] [place] Start: 08-07-2022 End: 08-07-2022 Patient encounter procedure Ivana Hernandez [facility] [place] Start: 07-30-2022 End: 07-30-2022 ambulatory Johann Dolan Facility:[facility] Start: 07-30-2022 End: 07-30-[address] [facility] Work Phone: Start: 07-30-2022 End: 07-30-2022 Patient encounter procedure PHYSICIAN NO [facility] [address] Work Phone: Start: 07-23-2022 End: 07-23-2022 ambulatory FLOATMAN FOZIA TOBAR Facility:[facility] Start: 07-15-2022 End: 07-16-2022 ambulatory Ivana Hernandez Facility:[facility] [place] Start: 07-15-2022 End: 07-15-2022 Patient encounter procedure Ivana Hernandez [facility] [place] Start: 07-14-2022 ambulatory SEBASTIÁN E LANDY Facili ty:[facility] [place] Start: 07-01-2022 End: 07-02-2022 ambulatory SEBASTIÁN BILL Facility:[facility] [place] Start: 07-01-2022 End: 07-01-2022 Patient encounter procedure SEBASTIÁN BILL [facility] Start: 07-01-2022 End: 07-02-2022 ambulatory Ivana Hernandez Facility:[facility] [place] Start: 07-01-2022 End: 07-01-2022 Patient encounter procedure Ivana Hernandez [facility] Start: 06-19-2022 End: 06-19-2022 ambulatory JIM LANDA MOISESKurtTANYAYaquelin Facility: Start: 06-17-2022 End: 06-18-2022 ambulatory CARY [facility]UTIERREZ [facility] Start: 06-17-2022 End: 06-17-2022 [facility] Start: 06-15-2022 End: 06-16-2022 ambulatory CARY GUTIERREZ [facility] Start: 06-15-2022 End: 06-15-2022 [facility] Start: 06-12-2022 End: 06-13-2022 ambulatory CARY GUTIERREZ [facility] Start: 06-12-2022 End: 06-12-2022 [facility] Start: 06-10-2022 End: 06-11-2022 ambulatory SG TOBAR [facility] Start: 06-10-2022 End: 06-10-2022 Subsequent hospital visit by physician [facility] Start: 06-09-2022 End: 06-10-2022 ambulatory [facility] [facility] Start: 06-09-2022 End: 06-09-2022 [facility] Start: 06-07-2022 End: 06-08-2022 ambulatory CARY GUTIERREZ [facility] Start: 06-07-2022 End: 06-07-2022 Subsequent hospital visit by physician [facility] Start: 06-02-2022 End: 06-03-2022 Emergency department patient visit Oz Beckford Jr Facility:[facility] Start: 06-02-2022 End: 06-03-2022 Emergency department patient visit II Kilo Chavez Work Phone: [facility] Work Phone: Start: 05-20-2022 End: 05-20-2022 ambulatory FLOATMAN FOZIA AICHHOLZ Facility:[facility] Start: 05-05-2022 End: 05-05-2022 ambulatory Johann Dolan Facility:[facility] Start: 05-05-2022 End: 05-05-2022 ambulatory II Kilo Chavez Work Phone: [facility] Work Phone: Start: 05-05-2022 End: 05-05-2022 Patient encounter procedure II Kilo Chavez Work Phone: [facility] [address] Work Phone: Start: 05-04-2022 End: 05-05-2022 ambulatory FLOATMAN FOZIA AICHHOLZ Facility:[facility] Start: 02-25-2022 End: 02-26-2022 ambulatory FLOATMAN FOZIA AICHHOLZ Facility:[facility] Start: 02-11-2022 End: 02-11-2022 ambulatory FLOATMAN FOZIA AICHHOLZ Facility:[facility] Start: 01-30-2022 End: 01-31-2022 ambulatory FLOATMAN FOZIA AICHHOLZ Facility:[facility] Start: 01-26-2022 End: 01-27-2022 ambulatory FLOATMAN FOZIA AICHHOLZ Facility:[facility] Start: 01-16-2022 End: 01-17-2022 ambulatory FLOATMAN FOZIA AICHHOLZ Facility:[facility] Start: 01-02-2022 ambulatory Silvia (Pcna)( Hist) [facility] Start: 12-31-2021 End: 12-31-2021 ambulatory FLOATMAN FOZIA AICHHOLZ Facility:[facility] Start: 12-22-2021 End: 12-23-2021 ambulatory FLOATMAN FOZIA AICHHOLZ Facility:[facility] Start: 12-04-2021 End: 12-05-2021 ambulatory JIM TOBAR Facility:[facility] Start: 10-29-2021 End: 10-30-[address] KILO CHAVEZ Facility:[facility] Start: 08-06-2020 End: 08-06-2020 Patient encounter procedure Pipe Sanchez Work Phone: -Pre-Surgical Testing Procedures Date Procedure Procedure Detail Performing Clinician Start: 10-26-2022 Urodynamic studies Ivana Georgese Start: 09-25-2022 Esophagogastroduodenoscopy PHYSICIAN NO FAMILY Start: 06-15-2022 Sodium serum plasma or whole blood Jose G Gutierrez RFID DEVELOPER - FLOATMAN Work Phone: Start: 06-12-2022 Sodium serum plasma or whole blood Jose G Gutierrez RFID DEVELOPER - FLOATMAN Work Phone: Start: 06-10-2022 Assay of thyroid stimulating hormone tsh Sg Tobar MD Work Phone: Start: 06-10-2022 Lipid panel Sg Tobar MD Work Phone: Start: 06-09-2022 Comprehensive metabolic panel Cary richard RFID DEVELOPER - FLOATMAN Work Phone: Start: 06-07-2022 Urinalysis microscopic only Cary julio RFID DEVELOPER - FLOATMAN Work Phone: Start: 06-07-2022 Urnls dip stick/tablet rgnt auto w/o microscopy Cary Gutierrez RFID DEVELOPER - FLOATMAN Work Phone: Start: 06-02-2022 SARS Antigen (LFIA) II Kilo Chavez Work Phone: Start: 05-13-2012 Cystourethroscopy with dilation of urethral stricture Ivana Georgese Appendectomy Ivana Lue Arthroplasty of right shoulder Ivana Lue Bilateral cataracts (disorder) Ivana Lue Colonoscopy Ivana Lue Hysterectomy Ivana Lue Ligation of fallopian tube K ashley Hernandez Plan of Treatment Date Care Activity Detail Author Start: 09-25-2022 [facility] Start: 05-05-2022 [facility] Start: 12-04-2021 Influenza vaccination INFLUENZA (#1) [facility] Start: 11-03-2021 Influenza vaccination Flu vaccine (# 1) [facility] Start: 04-05-2021 ADVANCE DIRECTIVE DISCUSSION ADVANCE DIRECTIVE DISCUSSION [facility] Start: 04-05-2021 DEPRESSION ASSESSMENT DEPRESSION ASS ESSMENT [facility] Start: 2006 BONE DENSITY BONE DENSITY [facility] Start: 2006 PNEUMOCOCCAL: 65+ (1 - PCV) PNEUMOCOCCAL: 65+ (1 - PCV) [facility] Start: 1991 SHINGRIX VACCINE (1 of 2) SHINGRIX VACCINE (1 of 2) [facility] Start: 1986 DIABETES SCREEN DIABETES SCREEN [facility] Start: 1960 DTaP/Tdap/Td vaccine (1 - Tdap) DTaP/Tdap/Td vaccine (1 - Tdap) [facility] Start: 1960 Urine microalbumin profile DTAP,TDAP,TD (1 - Tdap) [facility] Start: 1941 COVID-19 VACCINE (#1) COVID-19 VACCI NE (#1) [facility] Aldolase measurement [facility] Angiotensin converti ng enzyme [Enzymatic activity/volume] in Serum or Plasma [facility] C reactive protein [Mass/volume] in Serum or Plasma [facility] End: 06-07-2022 Culture, Urine [facility] Work Phone: Comment on above: Once for 1 Occurrenc es starting 06/07/2022 until 06/07/2022 Homogenous nuclear A b pattern [Titer] in Serum [facility] Nuclear Ab [Titer] i n Serum [facility] Parathyrin related protein [Moles/volume] in Serum or Plasma [facility] Patient Education Esophageal Dil ation Hiatal Hernia (DC) [facility] Work Phone: Patient referral [facility] Work Phone: Immunizations Immunization Date Immunization Notes Care Provider Rosio paris 04-03-2022 SARS-CoV-2 (COVID-19 ) [id number] Ivana Lue [facility] 12-22-2021 influenza virus vaccine, unspecified formulation Ivana Lue [facility] 12-17-2021 influenza virus vaccine, unspecified formulation Ivana Lue [facility] 08-07-2021 SARS-CoV-2 mRNA (ourtxzrjhms-pbxg-tdohi se) vaccine Ivana Lue [facility] 01-10-2021 SARS-CoV-2 (COVID-19 ) mRNA BNT-162b2 vax Ivana Lue [facility] 12-18-2020 influenza virus vaccine, unspecified formulation Ivana Lue [facility] 05-20-2020 COVID-19 mRNA, Comirnaty (Pfizer) II Kilo Chavez Work Phone: [facility] Comment on above: Result Comment: 2022: [id number] 04-29-2020 COVID-19 mRNA, Comirnaty (Pfizer) II Kilo Chavez Work Phone: [facility] Comment on above: Result Comment: 2022: [id number] 12-28-2019 influenza virus vaccine, unspecified formulation Ivana Lue [facility] 12-28-2017 influenza virus vaccine, unspecified formulation Ivana Lue [facility] 01-07-2017 influenza virus vaccine, unspecified formulation Ivana Lue [facility] 12-12-2015 influenza virus vaccine, unspecified formulation Ivana Lue [facility] 12-07-2014 influenza virus vaccine, unspecified formulation Ivana Lue [facility] 12-07-2014 pneumococcal conjuga te vaccine, 13 valent Ivana Lue [facility] 01-20-2012 influenza, whole Ivana Lue [facility] Payers Date Payer Category Payer Self-pay [id number] 2019 Unknown MMO MMO MEDICARE SUPPLEMENT [id number] 2019-Present [phone] [address] [place] [address] Indemnity [id number] 2018 Unknown [id number] 2006 Medicare MEDICARE MEDICAR E A AND B [id number] 2006-Present [phone] [address] [address] [place] [address] Medicare [id number] 1959 Medicare [id number] 1959 Unknown [id number] [id number] 1940 Unknown [id number] 2.16.840.1.139506.3.579.2.173 1941 Unknown [id number] 2.16.840.1.726127.3.579.2.173 1941 Unknown [id number] 2.16.840.1.945490.3.579.2.173 1941 Unknown [id number] 2.16.840.1.257677.3.579.2.593 1941 Unknown [id number] 2.16.840.1.897177.3.579.2.593 1941 Unknown [id number] 2.16.840.1.214588.3.579.2.593 1941 Unknown [id number] 2.16.840.1.608524.3.579.2.593 1941 Unknown [id number] 2.16.840.1.191657.3.579.2.593 1941 Unknown [id number] 2.16.840.1.385849.3.579.2.593 1941 Unknown [id number] 2.16.840.1.150632.3.579.2.593 1941 Unknown [id number] 2.16.840.1.767272.3.579.2.593 1941 Unknown [id number] 2.16.840.1.555648.3.579.2.593 1941 Unknown [id number] 2.16.840.1.695336.3.579.2.593 1941 Unknown [id number] 2.16.840.1.626528.3.579.2.593 1941 Unknown [id number] 2.16.840.1.462189.3.579.2.593 1941 Unknown [id number] 2.16.840.1.854183.3.579.2.593 1941 Unknown [id number] 2.16.840.1.849935.3.579.2.593 1941 Unknown [id number] 2.16.840.1.587200.3.579.2.593 1941 Unknown [id number] 2.16.840.1.885746.3.579.2.593 1941 Unknown [id number] 2.16.840.1.851864.3.579.2.1259 1941 Unknown [id number] 2.16.840.1.321288.3.579.2.1259 1941 Unknown [id number] 2.16.840.1.246791.3.579.2.727 1941 Unknown [id number] 2.16.840.1.394703.3.579.2.727 1941 Unknown [id number] 2.16.840.1.743992.3.579.2.727 1941 Unknown [id number] 2.16.840.1.223614.3.579.2.727 1941 Unknown [id number] 2.16.840.1.574216.3.579.2.727 1941 Unknown [id number] 2.16.840.1.267938.3.579.2.727 1941 Unknown [id number] 2.16.840.1.679053.3.579.2.727 1941 Unknown [id number] 2.16.840.1.745618.3.579.2.727 1941 Unknown [id number] 2.16.840.1.131299.3.579.2.727 1941 Unknown [id number] 2.16.840.1.574594.3.579.2.727 1941 Unknown [id number] 2.16.840.1.455048.3.579.2.727 1941 Unknown [id number] 2.16.840.1.148443.3.579.2.727 1941 Unknown [id number] 2.16.840.1.918127.3.579.2.72 1941 Unknown [id number] 2.16.840.1.361618.3.579.2.72 1941 Unknown [id number] 2.16.840.1.504407.3.579.2.72 1941 Unknown [id number] 2.16.840.1.574858.3.579.2.72 1941 Unknown [id number] 2.16.840.1.978778.3.579.2. 1941 Unknown [id number] 2.16.840.1.693050.3.579.2.727 1941 Unknown [id number] 2.16.840.1.087400.3.579.2.72 1941 Unknown [id number] 2.16.840.1.574556.3.579.2.727 1941 Unknown [id number] 2.16.840.1.576090.3.579.2.72 1941 Unknown [id number] 2.16.840.1.268850.3.579.2.727 1941 Unknown [id number] 2.16.840.1.006588.3.579.2.727 Unknown [id number] 2.16.840.1.975727.3.579.2.531 Unknown [id number] 2.16.840.1.928751.3.579.2.531 Unknown [id number] 2.16.840.1.691493.3.579.2.531 Unknown [id number] 2.16.840.1.218946.3.579.2.531 Social History Date Type Detail Facility Tobacco smoking status PRIS Unknown if ever smoked [facility] Start: 1940 Sex Assigned At Female [facility] Start: 07-29-2018 End: 07-15-2022 Tobacco smoking status NHIS Ex-smoker [facility] History of tobacco use Current smoker [facility] Start: 07-29-2018 Tobacco use and exposure Smokeless tobacco non-user [facility] Start: 06-13-2020 Alcohol intake Current drinke r of alcohol (finding) [facility] Start: 07-29-2018 History SDOH Alcohol Comment thisks may have a drink about 4-5 times per week [facility] Start: 1940 Sex Assigned At Not on file [facility] Start: 11-28-2020 Tobacco smoking status NHIS Never smoked tobacco (finding) [facility] Tobacco smoking status PRIS Tobacco smoking consumption unknown [employer] Phone: Tobacco smoking status Never [facility] Sex Assigned At Female [facility] Goals Date Patient Goal Desired Activity /State Functional Status Date Assessment Result Facility 11-25-2022 Functional Status N/A [facility] 08-07-2022 Functional Status N/A [facility] 07-15-2022 Functional Status N/A [facility] 07-01-2022 Functional Status N/A [facility] Clinical Notes 01-02-2022 to 11-25-2022 Silvia Kumar 01/02/2022 9:32 AM EDT Note Date & Type Note Facility 11-25-2022 Hospital Discharg e instructions Patient Education 11/25/2022 10:04:46 Urinary Tract Infection, Adult, Swpm-zt-Tjwt Urinary Tract Infection, Adult A urinary tract [...] Follow these instructions at home: Medicines Take plyu-xan-yknlptj and prescription medicines only as told by [...] provider. Document Revised: 11/01/2020 Document Reviewed: 11/01/2020 [employer] Patient Education 2022 1[employer]Star. Follow Up Care 11/10/2022 14:10:04 With:David WELLS, JACKY Barrera, URO Address: When:Within 1 Month(s) Comments:w/ Cath change [facility] 10-26-2022 Note [id number]:[id number] [facility] 09-25-2022 Procedure note [facility] 08-07-2022 Hospital Discharg e instructions Patient Education [...] your health care provider. General instructions Take jtpt-zrf-rietmvj and prescription medicines only as told by [...] Document Reviewed: 12/05/2020 Else[employer] Patient Education 2022 1CloudStar. Follow Up Care 07/15/2022 11:57:20 With:David WELLS, JACKY Barrera, URO Address: When: Unknown [facility] 07-15-2022 Hospital Discharg e instructions Patient [...] your health care provider. General instructions Take tfaj-uco-lumvkkt and prescription medicines only as told by [...] 10/03/2007 Document Revised: 04/04/2018 Document Reviewed: 04/04/2018 [employer] Patient Education 2020 1[employer]Star. Follow Up Care 07/01/2022 13:04:43 With:David WELLS, JACKY Barrera, URO Address: [address], [place] [address]- [phone] When: Unknown [facility] 07-01-2022 Note HPI Staff Jamari is a 82 y.o. female new patient here for neurogenic bladder and urinary retention. Referral by Fozia Doll CNP. Pt presented to [facility] on 06/02/22 due to altered mental [...] Illness Pt is here for Referral by [facility] due to Urinary Retention - external [...] urine, unspecified) Pt had Ribeiro placed at [facility] on 06/02/2022 Pt had Ribeiro changed on 06/11/2022 at [facility] Pt has not had a voiding trial. [...] on CT Scan done on 06/02/2022 at [facility] Pt states that she has known about it for years, states it is stable. Declined metabolic workup at this time Cont to monitor 3. UTI (urinary tract infection) (N39.0: Urinary tract infection, site not specified) UTI (asymptomatic) 05/05/2022-[facility] 06/07/2022-[facility] - ribeiro exchange Denies lifelong hx of [...] such as MS Suspected per cysto at [facility] in 2019 for gross hematuria. 3+ trabeculations. [...] Marilee loomis, accurate (more content not included)... [facility] Comment on above: Result Comment: Elec [...] your health care provider. General instructions Take lazi-ibi-avatlda and prescription medicines only as told by [...] 10/03/2007 Document Revised: 04/04/2018 Document Reviewed: 04/04/2018 [employer] Patient Education 2019 1CloudStar. Follow Up Care 06/24/2022 08:16:27 With:David WELLS, JACKY Barrera, URO Address: When: Unknown [facility] 01-02-2022 Note Patient Outreach (DAVIN SHORT) JAMARI ELIZALDE ([id number]) 1940 F Date Time Provider Department 01/02/22 MAGALI SILVIA (PCNA)(HIST) HEMACO During your visit today, we recorded the following information about you: Silvia Magali 01/02/2022 9:34 AM Signed [employer] [facility] Provider Action/FYI Received referral from [employer] for MAMMOGRAM Screening. Patient is outside of screening age. Will close encounter and end navigation. Jamari Elizalde was contacted to discuss their cancer screening needs. Pt identified by name and . Cancer Screening Care Gap Addressed: Breast Cancer Z12.31 Patient does not have appointment scheduled. Order pended. Outreach Outcome: [employer] message sent Payer: Insurance: Payor: MEDICARE / Plan: MEDICARE A AND B / Product Type: Medicare / Payor: MEDICARE / Plan: MEDICARE A AND B / Product Type: Medicare / Discussed with: Niharika Maharaj CNP Follow Up Actions: N/A Barriers: OUTSIDE SCREENING AGE Results Sent to Provider/Practice: NO Silvia De Los Santos Allergies As of Date: 01/02/2022 Noted [...] by SILVIA DE LOS SANTOS on 01/02/22 [facility] 01-02-2022 Note HNO ID: [id number] Author: Silvia De Los Santos Service: ? Author Type: ? Type: Progress Notes Filed: 01/02/2022 9:34 AM Note Text: Summary: Mammogram Screening [facility] Provider Marvin/CHELSEA Received referral from [employer] for MAMMOGRAM Screening. Patient is outside of [...] Sent to Provider/Practice: JASMEET De Los Santos [facility] 01-02-2022 History of Presen t illness Narrative Summary: Mammogram Screening [facility] Provider Action/CHELSEA Received referral from [employer] [facility] for MAMMOGRAM Screening. Patient is outside of [...] De Los Santos documented in this encounter [facility] Evaluation + Plan note Future Appointments Appointment Date:07/15/2022 01:00:00 PM Scheduled Provider: Location:[facility] Appointment Type:URO Nurse Visit [facility] Evaluation + Plan note Future Appointments Appointment Date:08/07/2022 10:15:00 AM Scheduled Provider:Ivana Hernandez MD Location:[facility] Appointment Type:URO Office Visit [facility] Evaluation + Plan note Future Appointments Appointment Date:08/26/2022 08:30:00 AM Scheduled Provider: Location:[facility] Appointment Type:URO Nurse Visit [facility] Evaluation + Plan note Future Appointments Appointment Date:11/10/2022 02:00:00 PM Scheduled Provider: Location:[facility] Appointment Type:URO Nurse Visit [facility] Evaluation + Plan note Future Appointments Appointment Date:11/10/2022 02:00:00 PM Scheduled Provider: Location:[facility] Appointment Type:URO Nurse Visit Diagnostic Tests PendingUrine Culture 10/12/22 [facility] Evaluation + Plan note Future Appointments Appointment Date:12/23/2022 10:00:00 AM Scheduled Provider: Location:[facility] Appointment Type:URO Nurse Visit [facility] Evaluation + Plan note Future Appointments Appointment Date:01/19/2023 01:00:00 PM Scheduled Provider: Location:[facility] Appointment Type:URO [facility] note Future Appointments Appointment Date:04/13/2023 01:00:00 PM Scheduled Provider: Location:[facility] Appointment Type:URO Nurse Visit [facility] Evaluation + Plan note Future Appointments Appointment Date:05/11/2023 01:00:00 PM Scheduled Provider: Location:[facility] Appointment Type:URO Nurse Visit [facility] Evaluation note No Assessments Infor mation Available [facility] Evaluation note No assessment inform ation available [facility] Work Phone: Evaluation note Diagnosis Onset Date Weight loss acute [facility] Work Phone: Hospital course Narrative No data available for this section [facility] Hospital Discharge instructions No data available for this section [facility] Hospital Discharge instructions Additional Instructions DISCHARGE INSTRUCTIONS [...] if you have any problems. 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 Relationship Specialty Start Date End Date Kilo Chavez II [address] [facility] [address] [place] [address] PCP - General Internal Medicine 06/30/18 Kilo Chavez II [address] [facility] [address] [place] [address] Referring Internal Medicine 09/30/18 Team Status: Inactive [...] section and content) DATE CREATED AUTHOR 01/06/2022 [facility] DATE CREATED AUTHOR AUTHOR'S ORGANIZ ATION 06/18/2022 [facility] DATE CREATED AUTHOR AUTHOR'S ORGANIZ ATION 09/12/2022 [facility] DATE CREATED AUTHOR AUTHOR'S ORGANIZ ATION 10/20/2022 [facility] DATE CREATED AUTHOR AUTHOR'S ORGANIZ ATION 04/10/2023 [facility] DATE CREATED AUTHOR AUTHOR'S ORGANIZ ATION 06/09/2023 [facility] Goals (unrecognized section and content) Goals may [...] BE BASED ON THE PRIMARY CLINICAL RECORDS. [facility] [facility]. provides no warranty or guarantee of the accuracy or completeness of information in this document.
[2023-06-13 14:15] LABS: Alanine Aminotransferase 24 U/L (14-59); Albumin Globulin Ratio 0.9; Albumin Level 3.5 g/dL (3.4-5.0); Alkaline Phosphatase 108 U/L (46-116); Aspartate Amino Transferase 14 U/L (15-37); Bilirubin Direct 0.1 mg/dL (0.0-0.2); Bilirubin Total 0.5 mg/dL (0.2-1.0); Globulin 3.9 g/dL; Total Protein 7.4 g/dL (6.4-8.2)
[2023-06-13 14:36] LABS: PROCALCITONIN <0.05 ng/mL (0.00-0.50)
[2023-06-13 14:37] LABS: Lactate/Lactic Acid 2.3 mmol/L (0.4-2.0)
[2023-06-13] MEDS: AZITHROMYCIN 500 MG in 0.9 % SODIUM CHLORIDE 250 ML 250 MG IV (14:53)
[2023-06-13 15:49] LABS: Lactate/Lactic Acid 2.2 mmol/L (0.4-2.0)
[2023-06-13 16:36] LABS: Glucometer 145 mg/dL (74-106)
[2023-06-13] MEDS: IPRATROPIUM/ALBUTEROL SULFATE 3 ML AMPUL.NEB IH ×2 (17:24→23:17)
[2023-06-13 18:53] LABS: Lactate/Lactic Acid 1.8 mmol/L (0.4-2.0)
[2023-06-13] MEDS: OXYCODONE HCL 5 MG TABLET PO (20:00)
[2023-06-13 20:39] LABS: Glucometer 203 mg/dL (74-106)
[2023-06-13] MEDS: ENOXAPARIN SODIUM 30 MG/0.3 ML SYRINGE SUBQ (20:42)
[2023-06-13] MEDS: INSULIN ASPART 300 UNIT/3 ML PEN SUBQ (21:12)
[2023-06-14] VITALS (22 sets, daily range): BP systolic 106–151; BP diastolic 58–80; PULSE 96–112; RESP 16–20; TEMP 36.3–36.6; O2SAT 88–97
[2023-06-14] MEDS: LORAZEPAM 0.5 MG TABLET PO ×2 (03:04→20:02)
[2023-06-14] MEDS: IPRATROPIUM/ALBUTEROL SULFATE 3 ML AMPUL.NEB IH ×4 (04:04→22:42)
[2023-06-14 05:10] LABS: Basophils Percent Auto 0.2 % (0.2-2.0); Eosinophils Absolute Auto 0.1 10^3/uL (0.0-0.7); Hematocrit 36.6 % (36.0-48.0); Hemoglobin 11.7 g/dL (12.0-16.0); Immature Granulocytes Abs Auto 0.03 10^3/uL (0.00-0.03); Immature Granulocytes Pct Auto 0.3 % (0.0-0.5); Lymphocytes Absolute Auto 2.6 10^3/uL (1.2-3.8); Lymphocytes Percent Auto 29.4 % (20.5-60.0); Mean Corpuscular Hemoglobin 29.8 pg (26.7-34.0); Mean Corpuscular Volume 93.1 fL (81.0-99.0); Mean Platelet Volume 8.7 fL (9.5-13.5); Monocytes Absolute Auto 0.7 10^3/uL (0.3-0.8); Monocytes Percent Auto 7.5 % (1.7-12.0); Neutrophils Absolute Auto 5.4 10^3/uL (1.4-6.5); Neutrophils Percent Auto 61.6 % (43.0-75.0); Platelet Count 284 10^3/uL (150-450); Red Blood Count 3.93 10^6/uL (4.20-5.40); Red Cell Distribution Width 14.6 % (11.0-15.0); White Blood Count 8.8 10^3/uL (4.0-11.0)
[2023-06-14 05:29] LABS: Alanine Aminotransferase 24 U/L (14-59); Albumin Globulin Ratio 0.8; Alkaline Phosphatase 91 U/L (46-116); Anion Gap 13.9; Aspartate Amino Transferase 9 U/L (15-37); BUN Creatinine Ratio 24.3; Bilirubin Total 0.5 mg/dL (0.2-1.0); Calcium 8.5 mg/dL (8.5-10.1); Carbon Dioxide 23.9 mmol/L (21.0-32.0); Chloride 97 mmol/L (98-107); Estimated GFR (African America >60 (>=60); Estimated GFR (Non-African Ame >60 (>=60); Globulin 3.8 g/dL; Glucose 149 mg/dL (74-106); Potassium 4.8 mmol/L (3.5-5.1); Sodium 130 mmol/L (136-145); Total Protein 6.8 g/dL (6.4-8.2)
[2023-06-14 08:10] LABS: Adenovirus NOT DETECTED (NOT DETECTE); Bordetella parapertussis NOT DETECTED (NOT DETECTE); Coronavirus 229E NOT DETECTED (NOT DETECTE); Coronavirus HKU1 NOT DETECTED (NOT DETECTE); Coronavirus NL63 NOT DETECTED (NOT DETECTE); Coronavirus OC43 NOT DETECTED (NOT DETECTE); Human Metapneumovirus NOT DETECTED (NOT DETECTE); Human Rhinovirus/Enterovirus NOT DETECTED (NOT DETECTE); Influenza A NOT DETECTED (NOT DETECTE); Influenza B NOT DETECTED (NOT DETECTE); Mycoplasma pneumoniae NOT DETECTED (NOT DETECTE); Parainfluenza Virus 1 NOT DETECTED (NOT DETECTE); Parainfluenza Virus 2 NOT DETECTED (NOT DETECTE); Parainfluenza Virus 3 NOT DETECTED (NOT DETECTE); Parainfluenza Virus 4 NOT DETECTED (NOT DETECTE); Respiratory Syncytial Virus NOT DETECTED (NOT DETECTE); SARS-CoV-2 NOT DETECTED (NOT DETECTE)
[2023-06-14 08:34] LABS: Clarity Urine TURBID (CLEAR); Color Urine LT YELLOW (YELLOW); Glucose Urine UA NEGATIVE (NEGATIVE)
[2023-06-14 08:35] LABS: Bilirubin Urine NEGATIVE (NEGATIVE); Ketones Urine 5 mg/dL (NEGATIVE)
[2023-06-14 08:36] LABS: Blood Urine MODERATE (NEGATIVE); pH Urine 6.5 (5.0-9.0)
[2023-06-14 08:37] LABS: Nitrite Urine NEGATIVE (NEGATIVE)
[2023-06-14 08:38] LABS: Leukocyte Esterase Urine LARGE (NEGATIVE); Protein Urine TRACE mg/dL (NEG/TRACE); Urine Microscopic Indicated YES; Urobilinogen Urine 0.2 EU/dL (0.2-1.0)
[2023-06-14 08:55] LABS: D Dimer 0.69 mg/L FEU (<=0.59)
[2023-06-14 09:04] LABS: WBC Urine >100 #/HPF (NONE SEEN)
[2023-06-14 09:05] LABS: Bacteria Urine LARGE #/HPF (NONE SEEN); Mucus Urine NONE SEEN (NONE SEEN); Squamous Epithelial Cell Urine MANY #/LPF (NONE/RARE); Urine Culture Indicated YES
[2023-06-14] MEDS: ARIPIPRAZOLE 2 MG TABLET PO (09:13)
[2023-06-14] MEDS: AZITHROMYCIN 250 MG TABLET 500 MG PO (09:13)
[2023-06-14] MEDS: DOCUSATE SODIUM 100 MG CAPSULE PO ×2 (09:13→20:02)
[2023-06-14] MEDS: AMLODIPINE BESYLATE 5 MG TABLET 2.5 MG PO (09:13)
[2023-06-14] MEDS: AMANTADINE HCL 100 MG CAPSULE PO ×2 (09:13→20:02)
[2023-06-14] MEDS: CRANBERRY 400 MG 400 EACH PO ×2 (09:14→20:03)
[2023-06-14] MEDS: BIOTIN 10000 MCG 10000 EACH PO ×2 (09:14→20:03)
[2023-06-14] MEDS: OMEPRAZOLE 40 MG CAPSULE.DR PO (09:15)
--- NOTE | 2023-06-14 09:53 | CT_ITS ---
[address] [address] Patient Name: JAMARI ELIZALDE MRN: [id number] date: 1940 Sex: F Assigned Patient Location: [place] Current Patient Location: [place] Accession/Order Number: [id number] Exam Date: 06/14/2023 09:35 Report Date: 06/14/2023 10:41 At the request of: ABIMAEL GONZALEZ Procedure: CT angio chest EXAM: CT angio chest HISTORY: Hypoxia/tachycardia, r/o PE COMPARISON: CT chest study dated 10/03/2022 TECHNIQUE: CT angiography chest study was performed with the use of intravenous contrast. Multiple axial images were obtained. Reformatted coronal and sagittal images were obtained and reviewed. FINDINGS: No obvious focal filling defects within the pulmonary arteries to suggest emboli. Atherosclerotic calcifications within the thoracic aorta. No evidence of thoracic aortic aneurysm, dissection or leak. Coronary artery calcifications are noted. No evidence of mediastinal, hilar or axillary lymphadenopathy. Visualized thyroid gland appears grossly unremarkable. Moderate to large hiatal hernia with retained food debris and fluid. Moderately distended esophagus with retained food debris and fluid at the mid and lower esophageal levels. Findings likely related to gastroesophageal reflux. Correlate clinically to exclude other possibility. The hernia appears mildly increased in size since prior exam and the esophageal findings present today were not identified on the previous study. Consolidated densities in the lower lobes compatible with atelectatic and/or infiltrative changes. Mild prominence of interstitial markings, consider edema related to congestive changes. Heart is borderline normal in size. Moderate to large bilateral pleural effusions greater on the right. Chest wall appears grossly intact. Mild degenerative changes in the dorsal spine with slight convexity to the right. CT/CT angio chest IMPRESSION: CT angiography chest study fails to demonstrate definite evidence of pulmonary emboli. Moderate to large hiatal hernia with moderately distended esophagus containing food debris and fluid at the mid and lower esophageal levels likely related to gastroesophageal reflux. Correlate clinically. Esophageal findings were not seen previously. Consolidated densities in the lower lobes compatible with atelectatic and/or infiltrative changes. Moderate to large bilateral pleural effusions greater on the right. Likely congestive changes as noted. Electronically authenticated by: FELIX COATS Date: 06/14/2023 10:41
--- NOTE | 2023-06-14 10:43 | P.HP_ITS ---
<Statement entered by Shaikh Feliz MD - 06/14/23 12:52> This documentation has been reviewed and approved. Patient seen and examined. Case discussed with Melissa. Patient presents with acute onset SOB that woke her up from sleep overnight. Was at her baseline clinical status prior to that with no cough, SOB, fever to suggest an infectious resp etiology. She was admitted yesterday for acute resp failure with hpyoxia sec to mutlifocal pna and started on rocephin/azithromycin Exam: Laying in bed, comfortable Normal RR, diminished air entry. No wheezing/rales Tachycardic, normal heart sounds. No LE edema. Assessment/plan Acute resp failure with hypoxia Mutlifocal Pneumonia Elevated d dimer T2 DM Depression with anxiety Bilateral pleural effusion CTA negative for PE, but revealed bilateral pleural effusion. Favor acute congestive HF over infection etiology like PNA. 2D ECHO ordered. C/w IV abx for now. Will start on IV lasix. Monitor I/O, daily weights. Needs close monitoring and continued inpatient care as still hypoxic and SOB on exertion and anticipate needing inpatient stay for over 2-3 days. Depression with anxiety B/l pleural effusion Documented by User: Melissa Souza NP 06/14/23 12:12 HPI H&P: HPI History of Present Illness Chief complaint: PNEUMONIA/HYPOXIA Narrative: 06/14/23 0910 This is an 83 yo female with a past medical history as outlined below including post polio syndrome, DMT2, HTN, and right common femoral DVT (January 2022); who presented to the ED yesterday complaining of shortness of breath. She reports an approximately 2-week course of URI symptoms that have been improving recently. She woke up 2 days ago at 7 AM and felt nauseated and then began to experience trouble breathing. She denies vomiting. She had mid-back pain but noted that this is chronic for her and was not pleuritic in nature. Her shortness of breath continued to get worse over the next 24 hrs. She denies fever or chills or any sick contacts. She has no history of chronic lung disease and no significant cough. She admits to having trouble swallowing some of her pills, but denies any aspiration event. She has a family member who is a nurse and came over and checked her O2 sats which were 73% on room air. EMS was contacted for transport to the ED and EMS documented 77% on room air on their arrival. The patient was transported to the ED for further evaluation. Workup in the ED revealed tachycardia (109), tachypnea (26), hypoxia (85% RA), and leukocytosis (14.6). Lactic acidosis (2.3), and elevated BNP (8894) were also noted. A troponin and procalcitonin were unremarkable. Influenza and COVID swabs were negative. Mild dehydration and hyperkalemia (5.5) were also noted. Chest x-ray revealed bilateral lower lobe and perihilar opacities consistent with multifocal pneumonia. She was admitted yesterday afternoon to the hospitalist service as an inpatient for multifocal pneumonia and acute respiratory failure. At the time of my exam the patient is sitting up on the side of the bed. She notes that she had a DVT diagnosed last January and is no longer on anticoagulation, merely a low-dose aspirin daily. Due to the sudden onset of her symptoms and her associated tachycardia and hypoxia, we will obtain a D- dimer and consider CTA of the chest to rule out PE. UA is still pending but the patient is on Rocephin and azithromycin already and these are likely adequate antibiotics should a UTI also be present. Opioid HPI Opioid Management Most Recent Opioid Data: Last Pain Assessment 06/14/23 12:00 Review of Systems ROS Status of ROS 10 or more systems reviewed and unremark able except as noted in history and below [facility] Medical History (Updated 06/14/23 @ 11:15 by Melissa Souza NP) Anxiety ?F41.9 - Anxiety disorder, unspecified (ICD-10) Hard of hearing ?H91.90 - Unspecified hearing loss, unspecified ear (ICD-10) Frequent falls ?R29.6 - Repeated falls (ICD-10) Dvt femoral (deep venous thrombosis) ?I82.419 - Acute embolism and thrombosis of unspecified femoral vein (ICD-10) Peripheral neuropathy ?G62.9 - Polyneuropathy, unspecified (ICD-10) Neurogenic bladder ?N31.9 - Neuromuscular dysfunction of bladder, unspecified (ICD-10) Bladder prolapse Anemia ?D64.9 - Anemia, unspecified (ICD-10) Depression ?F32.A - Depression, unspecified (ICD-10) Hypercholesteremia ?E78.00 - Pure hypercholesterolemia, unspecified (ICD-10) Fatty liver ?K76.0 - Fatty (change of) liver, not elsewhere classified (ICD-10) Osteopenia ?M85.80 - Other specified disorders of bone density and structure, unspecified site (ICD-10) Hypertension ?I10 - Essential (primary) hypertension (ICD-10) Diabetes ?E11.9 - Type 2 diabetes mellitus without complications (ICD-10) Hiatal hernia ?K44.9 - Diaphragmatic hernia without obstruction or gangrene (ICD-10) Esophageal erosions ?K22.10 - Ulcer of esophagus without bleeding (ICD-10) 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 - Osteopathy after poliomyelitis, right lower leg (ICD-10) ?B91 - Sequelae of poliomyelitis (ICD-10) Spina bifida ?Q05.9 - Spina bifida, unspecified (ICD-10) Surgical History S/P right rotator cuff repair ?Z98.890 - Other specified postprocedural states (ICD-10) H/O: hysterectomy ?Z90.710 - Acquired absence of both cervix and uterus (ICD-10) History of appendectomy ?Z90.49 - Acquired absence of other specified parts of digestive tract (ICD- 10) H/O tubal ligation ?Z98.51 - Tubal ligation status (ICD-10) Social History Within the past year, how often did you have a drink containing alcohol: monthly or less Smoking status: Former smoker Highest level of school completed/degree received: some college, no degree Meds Home Medications and Allergies Home Medications Medication Instructions Recorded Confirmed Type amantadine HCl 100 mg capsule 100 mg PO BID 06/13/23 06/13/23 History amlodipine 2.5 mg tablet 2.5 mg PO DAILY 06/13/23 06/13/23 History aripiprazole 2 mg tablet 2 mg PO DAILY 06/13/23 06/13/23 History aspirin 81 mg tablet,delayed 81 mg PO BEDTIME 06/13/23 06/13/23 History release (Adult Aspirin Regimen) biotin 10,000 mcg capsule 10,000 mcg PO BID 06/13/23 06/13/23 History cranberry 400 mg capsule 400 mg PO BID 06/13/23 06/13/23 History dextroamphetamine-amphetamine 15 15 mg PO DAILY 06/13/23 06/13/23 History mg tablet docusate sodium 100 mg capsule 100 mg PO BID 06/13/23 06/13/23 History ezetimibe 10 mg tablet 10 mg PO BEDTIME 06/13/23 06/13/23 History lisinopril 20 mg tablet 20 mg PO DAILY 06/13/23 06/13/23 History lorazepam 0.5 mg tablet 0.5 mg PO Q8H PRN anxiety 06/13/23 06/13/23 History melatonin 10 mg capsule 10 mg PO BEDTIME 06/13/23 06/13/23 History metformin 500 mg tablet,extended 1,000 mg PO .DINNER 06/13/23 06/13/23 History release 24 hr omeprazole 20 mg capsule,delayed 20 mg PO .DINNER 06/13/23 06/13/23 History release omeprazole 40 mg capsule,delayed 40 mg PO .BREAKFAST 06/13/23 06/13/23 History release ondansetron HCl 4 mg tablet 4 mg PO Q6H PRN nausea and vomiting 06/13/23 06/13/23 History oxybutynin chloride 5 mg tablet 5 mg PO Q8H PRN bladder spasms 06/13/23 06/13/23 History sertraline 50 mg tablet 50 mg PO BEDTIME 06/13/23 06/13/23 History trazodone 150 mg tablet 150 mg PO .QHS 06/13/23 06/13/23 History Allergies Allergy/AdvReac Type Severity Reaction Status Date / Time adhesive tape Allergy Blistering Verified 06/13/23 15:31 aspirin AdvReac Gastiritis Verified 06/13/23 15:31 Exam Constitutional Vital Signs, click to edit/add: Last Vital Signs Temp 97.6 F 06/14/23 08:00 Pulse 104 H 06/14/23 10:00 Resp 18 06/14/23 08:00 BP 121/72 06/14/23 08:00 Pulse Ox 92 L 06/14/23 08:00 O2 Del Method Nasal Cannula 06/14/23 08:00 O2 Flow Rate 1 06/14/23 08:00 Common normals: no apparent distress, oriented x3, alert and well nourished General appearance: cooperative Orientation/consciousness: Yes awake HENMT Common normals: normocephalic, head/scalp atraumatic, hearing grossly normal bilaterally, external nose normal and moist oral mucous membranes Eye Common normals: PERRL, EOMs intact bilaterally, conjunctivae normal and no scleral icterus Alignment: alignment normal Eyelid: eyelids normal Neck & C-Spine Common normals: full ROM, supple and no JVD Chest Common normals: inspection of chest normal Chest: symmetrical chest wall rise Respiratory Common normals: normal respiratory effort, no retractions, no use of accessory muscles and clear to auscultation bilaterally Effort & inspection: able to speak in complete sentences Auscultation: diminished lung sounds bilateral in the lower lung estrada Cardio Common normals: no JVD, regular rhythm, S1 normal heart sound, S2 normal heart sound, no gallops, no clicks, no murmurs, no rub and peripheral pulses 2+ throughout Rate: tachycardic (mild, regular) GI Common normals: Normal to inspection, nondistended, normoactive bowel sounds present, soft to palpation, no hepatosplenomegaly, no masses and no bruits Palpation: tender (mild, diffuse, non-focal. Chronic) Bladder/kidney exam: bladder normal to palpation Back & Pelvis Common normals: thoracic and lumbar spine normal to inspection Extremity Common normals: normal capillary refill and no pedal edema General: normal exam except as noted; no clubbing and no cyanosis Neuro [place] Coma Scale: GCS not evaluated Common normals: CN's II-XII intact bilaterally, moves all extremities, no focal motor deficits and no sensory deficits noted Speech: speech normal Motor exam: strength 5/5 throughout Psych Common normals: mental status grossly normal, thought process normal, affect normal and activity/motor behavior normal Results Labs Labs: Short CBC 06/13/23 06/14/23 Range/Units 12:02 05:00 WBC 14.6 H 8.8 (4.0-11.0) 10^3/uL Hgb 13.1 11.7 L (12.0-16.0) g/dL Hct 42.0 36.6 (36.0-48.0) % Plt Count 324 284 (150-450) 10^3/uL BMP 06/13/23 06/14/23 12:02 05:00 Sodium 130 L 130 L Potassium 5.5 H 4.8 Chloride 97 L 97 L Carbon Dioxide 25.0 23.9 BUN 20.0 H 18.0 Creatinine 0.93 0.74 Glucose 257 H 149 H Calcium 8.8 8.5 Liver Function 06/13/23 06/14/23 Range/Units 12:02 05:00 Total Bilirubin 0.5 0.5 (0.2-1.0) mg/dL Direct Bilirubin 0.1 (0.0-0.2) mg/dL AST 14 L 9 L (15-37) U/L ALT 24 24 (14-59) U/L Alkaline Phosphatase 108 91 (46-116) U/L Albumin 3.5 3.0 L (3.4-5.0) g/dL Urine 06/14/23 Range/Units 08:00 Urine Color Lt yellow (YELLOW) Urine Clarity Turbid A (CLEAR) Urine pH 6.5 (5.0-9.0) Ur Specific [place] 1.010 (1.005-1.025) Urine Protein Trace (NEG/TRACE) mg/dL Urine Glucose (UA) Negative (NEGATIVE) mg/dL Pulse Oximetry Attestation: I have reviewed the pertinent pulse oximetry results. ECG Attestation: ?I have reviewed the pertinent ECG results. Interpretation: Sinus tachycardia Minimal ST depression Nonspecific ST and T wave abnormality, cannot exclude inferolateral ischemia Abnormal right axis deviation Abnormal rhythm ECG Imaging Chest x-ray: Radiologist's impression: Impression: Bilateral perihilar and lower lobes airspace opacities, likely representing multifocal/aspiration pneumonia. Assessment and Plan Assessment and Plan (1) Multifocal pneumonia: Assessment and Plan: Acute * Adm inpatient * Multifocal infiltrates noted on CXR imaging * Leukocytosis - 14.6 in ED, resolved on AM labs today * IVPB Rocephin/PO Azithromycin for broad gram neg/atypical coverage * Obtain sputum sample if possible * BC x 2 pending * Duonebs q6h scheduled and PRN * See acute resp failure * CBC, CMP daily (2) Acute respiratory failure: Assessment and Plan: Acute * Likely 2/2 multifocal pneumonia, but r/o PE or CHF * D dimer now, consider CTA chest if elevated - recent hx of DVT, no longer on anticoagulation * 2D Echo today - no hx of CHF, but BNP continues to rise despite no IVF administration overnight * BLL diminished - no rales and no peripheral edema on exam * low threshold to add lasix if clinically indicated * O2 to keep sats above 90% - currently 92% on 1 liter * wean off as able (3) UTI (urinary tract infection): Assessment and Plan: Acute * UA resulted w/ UTI this morning * On IVPB Rocephin already - appropriate coverage * UA C&S pending (4) Depression: Assessment and Plan: Chronic * Continue home aripiprazole, sertraline, and trazedone (5) Hypercholesteremia: Assessment and Plan: Chronic * Continue home zetia (6) Hypertension: Assessment and Plan: Chronic * Continue home amlodipine today, resume home lisinopril in AM (7) Diabetes: Assessment and Plan: Chronic * Hold home metformin during acute illness/hospitalization * ACHS glucometer checks * Med CC diet * Med SSI for glucose correction (8) Esophageal erosions: Assessment and Plan: Chronic * Continue home PPI (9) Insomnia: Assessment and Plan: Chronic * Continue home HS trazodone and melatonin * Give PRN benadryl PO if needed (10) Anxiety: Assessment and Plan: Chronic * Continue home lorazepam Urinary Catheter Management Urinary Catheter Management Urethral: Cath placed during this visit: no Documented by User: Shaikh Feliz MD 06/14/23 12:50 HPI H&P: HPI History of Present Illness Chief complaint: PNEUMONIA/HYPOXIA Opioid HPI Opioid Management Most Recent Opioid Data: Last Pain Assessment 06/14/23 12:00 [facility] Medical History (Updated 06/14/23 @ 11:15 by Melissa Souza NP) Anxiety ?F41.9 - Anxiety disorder, unspecified (ICD-10) Hard of hearing ?H91.90 - Unspecified hearing loss, unspecified ear (ICD-10) Frequent falls ?R29.6 - Repeated falls (ICD-10) Dvt femoral (deep venous thrombosis) ?I82.419 - Acute embolism and thrombosis of unspecified femoral vein (ICD-10) Peripheral neuropathy ?G62.9 - Polyneuropathy, unspecified (ICD-10) Neurogenic bladder ?N31.9 - Neuromuscular dysfunction of bladder, unspecified (ICD-10) Bladder prolapse Anemia ?D64.9 - Anemia, unspecified (ICD-10) Depression ?F32.A - Depression, unspecified (ICD-10) Hypercholesteremia ?E78.00 - Pure hypercholesterolemia, unspecified (ICD-10) Fatty liver ?K76.0 - Fatty (change of) liver, not elsewhere classified (ICD-10) Osteopenia ?M85.80 - Other specified disorders of bone density and structure, unspecified site (ICD-10) Hypertension ?I10 - Essential (primary) hypertension (ICD-10) Diabetes ?E11.9 - Type 2 diabetes mellitus without complications (ICD-10) Hiatal hernia ?K44.9 - Diaphragmatic hernia without obstruction or gangrene (ICD-10) Esophageal erosions ?K22.10 - Ulcer of esophagus without bleeding (ICD-10) 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 - Osteopathy after poliomyelitis, right lower leg (ICD-10) ?B91 - Sequelae of poliomyelitis (ICD-10) Spina bifida ?Q05.9 - Spina bifida, unspecified (ICD-10) Surgical History S/P right rotator cuff repair ?Z98.890 - Other specified postprocedural states (ICD-10) H/O: hysterectomy ?Z90.710 - Acquired absence of both cervix and uterus (ICD-10) History of appendectomy ?Z90.49 - Acquired absence of other specified parts of digestive tract (ICD- 10) H/O tubal ligation ?Z98.51 - Tubal ligation status (ICD-10) Social History Within the past year, how often did you have a drink containing alcohol: monthly or less Smoking status: Former smoker Highest level of school completed/degree received: some college, no degree Meds Home Medications and Allergies Home Medications Medication Instructions Recorded Confirmed Type amantadine HCl 100 mg capsule 100 mg PO BID 06/13/23 06/13/23 History amlodipine 2.5 mg tablet 2.5 mg PO DAILY 06/13/23 06/13/23 History aripiprazole 2 mg tablet 2 mg PO DAILY 06/13/23 06/13/23 History aspirin 81 mg tablet,delayed 81 mg PO BEDTIME 06/13/23 06/13/23 History release (Adult Aspirin Regimen) biotin 10,000 mcg capsule 10,000 mcg PO BID 06/13/23 06/13/23 History cranberry 400 mg capsule 400 mg PO BID 06/13/23 06/13/23 History dextroamphetamine-amphetamine 15 15 mg PO DAILY 06/13/23 06/13/23 History mg tablet docusate sodium 100 mg capsule 100 mg PO BID 06/13/23 06/13/23 History ezetimibe 10 mg tablet 10 mg PO BEDTIME 06/13/23 06/13/23 History lisinopril 20 mg tablet 20 mg PO DAILY 06/13/23 06/13/23 History lorazepam 0.5 mg tablet 0.5 mg PO Q8H PRN anxiety 06/13/23 06/13/23 History melatonin 10 mg capsule 10 mg PO BEDTIME 06/13/23 06/13/23 History metformin 500 mg tablet,extended 1,000 mg PO .DINNER 06/13/23 06/13/23 History release 24 hr omeprazole 20 mg capsule,delayed 20 mg PO .DINNER 06/13/23 06/13/23 History release omeprazole 40 mg capsule,delayed 40 mg PO .BREAKFAST 06/13/23 06/13/23 History release ondansetron HCl 4 mg tablet 4 mg PO Q6H PRN nausea and vomiting 06/13/23 06/13/23 History oxybutynin chloride 5 mg tablet 5 mg PO Q8H PRN bladder spasms 06/13/23 06/13/23 History sertraline 50 mg tablet 50 mg PO BEDTIME 06/13/23 06/13/23 History trazodone 150 mg tablet 150 mg PO .QHS 06/13/23 06/13/23 History Allergies Allergy/AdvReac Type Severity Reaction Status Date / Time adhesive tape Allergy Blistering Verified 06/13/23 15:31 aspirin AdvReac Gastiritis Verified 06/13/23 15:31 Assessment and Plan Assessment and Plan (1) Multifocal pneumonia: (2) Acute respiratory failure: (3) UTI (urinary tract infection): (4) Depression: (5) Hypercholesteremia: (6) Hypertension: (7) Diabetes: (8) Esophageal erosions: (9) Insomnia: (10) Anxiety: Urinary Catheter Management Urinary Catheter Management Urethral: Cath placed during this visit: no
--- NOTE | 2023-06-14 10:49 | CM.NOTE ---
Important Message From Medicare discussed with pt, pt verbalizes understanding and signs paper. Original given to pt and copy placed on pt's chart.
--- NOTE | 2023-06-14 10:54 | CM.NOTE ---
Rounds made with Dr. Piper, pt is having CT of chest this AM. No discharge to home.
--- NOTE | 2023-06-14 10:58 | CA_ITS ---
Patient Name: JAMARI ELIZALDE MR#: [id number] : 1940 Exam Date: 06/14/2023 Ordering Doctor: ABIMAEL GONZALEZ ECHOCARDIOGRAM REPORT PROCEDURE: CA ECHO DOPPLER COMPLETE INDICATIONS: Elevated BNP, Pleural effusions, no CHF hx, hypertension, diabetes COMPARISON: None. DESCRIPTION: COMPLETE ECHOCARDIOGRAM Real-time transthoracic echocardiography with 2D, M-mode, spectral and color flow Doppler performed. QUALITY: Technical quality was good. 65 , 151#, BSA 1.76 m2, BP 121/72 LEFT VENTRICLE: Normal chamber size. Normal left ventricular wall thickness. LV EF: Global left ventricular systolic function is severely reduced; visually estimated ejection fraction is 20 to 25%. Diffuse global hypokinesis. DIASTOLIC: Grade II diastolic dysfunction. ATRIAL SEPTUM: Inadequately seen. LEFT ATRIUM: Mild dilatation. RIGHT ATRIUM: Normal chamber size. RIGHT VENTRICLE: Normal chamber size. Decreased right ventricular systolic function. TRICUSPID VALVE: Normal mobility and thickness. No stenosis with trivial regurgitation. Unable to assess right-sided pressures due to lack of measurable tricuspid regurgitation. MITRAL VALVE: Mildly thickened with normal mobility. Mild mitral annular calcification. Moderate mitral regurgitation. AORTIC VALVE: Normal trileaflet appearance. No visible sclerosis. Normal leaflet mobility. No evidence of aortic valve stenosis. No aortic regurgitation. AORTIC ROOT: Normal diameter and appearance. PULMONIC VALVE: Not well visualized. No stenosis. No regurgitation. PERICARDIUM: No evidence of pericardial effusion. IVC: IVC is dilated (2.6 cm) with no collapse. CONCLUSION: 1. Global left ventricular systolic function is severely reduced; visually estimated ejection fraction is 20 to 25% 2. The right ventricle is normal in size with decreased systolic function 3. The left atrium is mildly dilated 4. Grade 2 diastolic dysfunction 5. Moderate mitral regurgitation Adult Echocardiography Procedure Report Left Ventricle LVEDD (3.7 - 5.6 cm): 4.38 cm LVESD (2.2 - 4.0 cm): 4.37 cm LVIVS thickness (0.6 - 1.2 cm): 0.98 cm LVPW thickness (0.5 - 1.0 cm): 0.87 cm E - e': 12.41 LVOT Max Gradient: 1.44 mm[Hg] LVOT Area (cm2): 0.60 m/s Peak Velocity (LVOT): 0.60 m/s Mean Velocity (LVOT): 0.43 m/s LVOT Diameter 2.35 cm Left Atrium LA Volume Index (2D A2C): 37.79 ml/m2 Left Atrium Systolic Dimension: 3.64 cm Mitral Valve MV E to A Ratio: 1.29 Mitral Valve A-Wave Peak Velocity: 0.74 m/s Mitral Valve E-Wave Peak Velocity: 0.96 m/s Right Ventricle Aorta AO Root Diam: 3.14 cm Aortic Valve AoV Area (Peak Joseph): 2.97 cm2, 2.97 cm2 AoV Area (VTI): 2.89 cm2, 2.89 cm2 Peak Velocity(Antegrade Flow): 0.87 m/s Peak Gradient(Antegrade Flow): 3.06 mm[Hg] Mean Velocity(Antegrade Flow): 0.67 m/s Mean Gradient(Antegrade Flow): 1.90 mm[Hg] Velocity Time Integral: 14.69 cm Tricuspid Valve Pulmonic Valve Peak Gradient: 0.87 mm[Hg], 0.60 mm[Hg] Right Atrium Dictated by: Lei Yu M.D. on 06/14/2023 at 13:36 Approved by: Lei Yu M.D. on 06/14/2023 at 13:40
[2023-06-14 11:28] LABS: Glucometer 228 mg/dL (74-106)
--- NOTE | 2023-06-14 12:10 | SWNOTE1 ---
SW checked therapy notes and at this time recommended home with family.
[2023-06-14] MEDS: INSULIN ASPART 300 UNIT/3 ML PEN SUBQ ×2 (12:36→20:03)
[2023-06-14] MEDS: FUROSEMIDE 20 MG/2 ML VIAL IVP (12:37)
[2023-06-14] MEDS: CEFTRIAXONE 1,000 MG in 0.9 % SODIUM CHLORIDE 50 ML 100 MG IV (14:22)
[2023-06-14] MEDS: 0.9 % SODIUM CHLORIDE 250 ML IV.SOLN 30 ML IV (14:23)
[2023-06-14 16:19] LABS: Glucometer 155 mg/dL (74-106)
[2023-06-14] MEDS: HEPARIN SODIUM (PORCINE) 5,000 UNIT/ML VIAL 5000 UNIT SUBQ (17:01)
[2023-06-14] MEDS: OMEPRAZOLE 20 MG CAPSULE.DR PO (17:04)
[2023-06-14 19:37] LABS: Glucometer 204 mg/dL (74-106)
[2023-06-14] MEDS: FUROSEMIDE 40 MG/4 ML VIAL IVP (19:38)
[2023-06-14] MEDS: SERTRALINE HCL 50 MG TABLET PO (20:02)
[2023-06-14] MEDS: EZETIMIBE 10 MG TABLET PO (20:02)
[2023-06-14] MEDS: ASPIRIN 81 MG TABLET.DR PO (20:02)
[2023-06-14] MEDS: TRAZODONE HCL 150 MG TABLET PO (21:08)
[2023-06-15] VITALS (23 sets, daily range): BP systolic 112–149; BP diastolic 59–82; PULSE 84–109; RESP 16–20; TEMP 36.5–36.8; O2SAT 90–96
[2023-06-15] MEDS: LORAZEPAM 0.5 MG TABLET PO (04:15)
[2023-06-15] MEDS: HEPARIN SODIUM (PORCINE) 5,000 UNIT/ML VIAL 5000 UNIT SUBQ ×2 (04:15→17:15)
[2023-06-15] MEDS: OMEPRAZOLE 40 MG CAPSULE.DR PO (04:16)
[2023-06-15] MEDS: ACETAMINOPHEN 325 MG TABLET 650 MG PO (04:23)
[2023-06-15] MEDS: IPRATROPIUM/ALBUTEROL SULFATE 3 ML AMPUL.NEB IH (04:45)
[2023-06-15 05:18] LABS: Basophils Percent Auto 0.3 % (0.2-2.0); Eosinophils Absolute Auto 0.2 10^3/uL (0.0-0.7); Eosinophils Percent Auto 3.3 % (0.9-7.0); Hematocrit 36.4 % (36.0-48.0); Hemoglobin 11.9 g/dL (12.0-16.0); Immature Granulocytes Abs Auto 0.02 10^3/uL (0.00-0.03); Immature Granulocytes Pct Auto 0.3 % (0.0-0.5); Lymphocytes Percent Auto 30.8 % (20.5-60.0); Mean Corpuscular HGB Conc 32.7 g/dL (29.9-35.2); Mean Corpuscular Hemoglobin 29.9 pg (26.7-34.0); Mean Corpuscular Volume 91.5 fL (81.0-99.0); Mean Platelet Volume 9.1 fL (9.5-13.5); Monocytes Absolute Auto 0.4 10^3/uL (0.3-0.8); Monocytes Percent Auto 6.8 % (1.7-12.0); Neutrophils Absolute Auto 3.8 10^3/uL (1.4-6.5); Neutrophils Percent Auto 58.5 % (43.0-75.0); Platelet Count 301 10^3/uL (150-450); Red Blood Count 3.98 10^6/uL (4.20-5.40); Red Cell Distribution Width 14.6 % (11.0-15.0); White Blood Count 6.4 10^3/uL (4.0-11.0)
[2023-06-15 05:43] LABS: Alanine Aminotransferase 30 U/L (14-59); Albumin Globulin Ratio 0.8; Alkaline Phosphatase 87 U/L (46-116); Anion Gap 14.1; Aspartate Amino Transferase 13 U/L (15-37); BUN Creatinine Ratio 20.2; Bilirubin Total 0.4 mg/dL (0.2-1.0); Calcium 8.5 mg/dL (8.5-10.1); Chloride 97 mmol/L (98-107); Estimated GFR (African America >60 (>=60); Estimated GFR (Non-African Ame >60 (>=60); Globulin 3.8 g/dL; Glucose 134 mg/dL (74-106); Potassium 4.1 mmol/L (3.5-5.1); Sodium 132 mmol/L (136-145); Total Protein 6.8 g/dL (6.4-8.2)
--- NOTE | 2023-06-15 06:38 | XR_ITS ---
The [address] [address] Patient Name: JAMARI ELIZALDE MRN: [id number] date: 1940 Sex: F Assigned Patient Location: [place] Current Patient Location: [place] Accession/Order Number: [id number] Exam Date: 06/15/2023 06:50 Report Date: 06/15/2023 07:12 At the request of: SHAIKH DEE Procedure: XR chest 1V EXAM: XR chest 1V HISTORY: Congestive HF COMPARISON: 06/13/2023 TECHNIQUE: AP portable erect FINDINGS: LUNGS: Progression of left basilar infiltrate obscuring the left hemidiaphragm and partially obscuring the heart border. Slight progression of right basilar infiltrate VASCULATURE: Mildly increased pulmonary vasculature, improved PLEURA: No pneumothorax. Likely left pleural effusion CARDIAC: No cardiomegaly or cardiac silhouette abnormality. MEDIASTINUM: No visible mass or adenopathy. BONES: No fracture or visible bone lesion. OTHER: Negative. XR/XR chest 1V IMPRESSION: Progression of left basilar infiltrate, pulmonary edema versus pneumonia Improvement of pulmonary vascular congestion Electronically authenticated by: LORETTA ORELLANA Date: 06/15/2023 07:12
--- NOTE | 2023-06-15 09:16 | P.PN_ITS ---
<Statement entered by Shaikh Feliz MD - 06/15/23 13:17> This documentation has been reviewed and approved. Seen and examined. Case d/w Melissa. Agree with her clinical impression and findings Patient reports feeling better today. She is comfortable on RA. Still volume overload on exam Exam NAD, sitting on bedside Normal RR, crackles at lung bases. No wheezing [place], no murmurs noted Assessment/plan Acute systolic HF Acute diastolic HF Multifocal PNA UTI Acute resp failure with hypoxia HTN Depression with anxiety. Added coreg 12.5 mg q12. C/w diuresis as still volume overload on exam. Improving. Monitor I/O ,electrolytes closely. Cardiology consult pending C/w rocephin for UTI. At this point, PNA felt to be less likely Progress Note: Subjective Subjective Interval history: 06/15/23 0903 The patient is sitting up on the side of the bed eating her breakfast at the time of my exam. She reports feeling mildly improved and is off O2 supplementation this morning, however she reports persistent dyspnea with minimal exertion, even just with eating. I had a prolonged discussion with the patient regarding the findings of the CTA of the chest and 2D echo yesterday. She has new onset HFrEF (LVEF 20-25%) of unknown etiology, and grade 2 diastolic dysfunction as well. She was initiated on twice daily IVP Lasix dosing yesterday afternoon. A repeat chest x-ray this morning shows improved vascular congestion but persistent bilateral lower lobe pleural effusions, but left lower lobe increased edema versus infiltrate. A BNP this morning continues to rise despite diuretic administration. No evidence of peripheral edema. She denies any recent life stressors or major events. She remains afebrile and we have low suspicion of acute pneumonia at this time. We have consulted cardiology and appreciate their assistance with this patient's plan of care. We will continue with our current Lasix 40 mg BID, pending recommendations from cardiology. We will initiate her on low-dose Coreg for heart failure treatment. The patient is already on an ACEi. The patient is also requesting milk of mag as needed for her colonic atony (baseline condition), which she usually takes q72 hrs. Exam Constitutional Vital Signs, click to edit/add: Last Vital Signs Temp 97.7 F 06/15/23 04:08 Pulse 105 H 06/15/23 08:02 Resp 18 06/15/23 04:45 BP 112/59 06/15/23 04:08 Pulse Ox 95 06/15/23 04:45 O2 Del Method Nasal Cannula 06/15/23 04:45 O2 Flow Rate 1 06/15/23 04:45 Common normals: no apparent distress, oriented x3 and alert General appearance: cooperative Orientation/consciousness: Yes awake HENMT Common normals: normocephalic, head/scalp atraumatic and hearing grossly normal bilaterally Eye Common normals: PERRL, EOMs intact bilaterally, conjunctivae normal and no scleral icterus Chest Common normals: inspection of chest normal Chest: symmetrical chest wall rise Respiratory Common normals: normal respiratory effort, no use of accessory muscles and clear to auscultation bilaterally Effort & inspection: able to speak in complete sentences Cardio Common normals: regular rate, regular rhythm, S1 normal heart sound, S2 normal heart sound, no murmurs and peripheral pulses 2+ throughout GI Common normals: Normal to inspection, nondistended, normoactive bowel sounds present, soft to palpation, non-tender and no hepatosplenomegaly Bladder/kidney exam: bladder normal to palpation Extremity Common normals: normal to inspection and no calf tenderness General: no clubbing, no cyanosis and no edema Neuro Common normals: CN's II-XII intact bilaterally, moves all extremities, no focal motor deficits and no sensory deficits noted Psych Common normals: mental status grossly normal Progress Note: Objective Labs Labs: Short CBC 06/15/23 Range/Units 04:28 WBC 6.4 (4.0-11.0) 10^3/uL Hgb 11.9 L (12.0-16.0) g/dL Hct 36.4 (36.0-48.0) % Plt Count 301 (150-450) 10^3/uL BMP 06/15/23 04:28 Sodium 132 L Potassium 4.1 Chloride 97 L Carbon Dioxide 25.0 BUN 17.0 Creatinine 0.84 Glucose 134 H Calcium 8.5 Liver Function 06/15/23 Range/Units 04:28 Total Bilirubin 0.4 (0.2-1.0) mg/dL AST 13 L (15-37) U/L ALT 30 (14-59) U/L Alkaline Phosphatase 87 (46-116) U/L Albumin 3.0 L (3.4-5.0) g/dL Progress Note: A&P Assessment and Plan (1) Acute HFrEF (heart failure with reduced ejection fraction): Assessment and Plan: Acute * LVEF 20-25% on 2D Echo yesterday, w/ grade 2 diastolic dysfunction as well * New dx for this pt * C/S cardiology - we appreciate their assistance with this pt's care * Continue IVPB Lasix 40 mg BID for now pending cardiology recommendation * Adequate OP and improved hypoxia, but remains hypervolemic per CXR * Start Coreg 3.125 BID now. Pt already taking and ACEi * Trend BNP daily - still trending up * Daily weights, strict I&O * Monitor renal fx on diuretic therapy - remains WNL today * CBC, CMP daily (2) Acute respiratory failure: Assessment and Plan: Acute * Resolving - pt currently on RA, but notes SOB w/ minimal exertion * Monitor - resume O2 supplementation if needed to keep sats > 90% * Likely 2/2 acute CHF * PNA no longer clinically suspected * No PE on CTA chest * See Acute HFrEF (3) Multifocal pneumonia: Assessment and Plan: Acute * No longer clinically suspected * CXR findings likely d/t pulmonary edema/pleural effusions * Pt remains afebrile, without leukocytosis * D/C Azithromycin. Continue Rocephin for UTI (4) UTI (urinary tract infection): Assessment and Plan: Acute * UA resulted w/ UTI this morning * Pt w/ indwelling catheter at baseline * May reflect chronic colonization - consider remove/replace catheter and repeat UA * Continue IVPB Rocephin for now * UA C&S pending (5) Depression: Assessment and Plan: Chronic * Continue home aripiprazole, sertraline, and trazedone (6) Hypercholesteremia: Assessment and Plan: Chronic * Continue home zetia (7) Hypertension: Assessment and Plan: Chronic * Continue home amlodipine and lisinopril (8) Diabetes: Assessment and Plan: Chronic * Hold home metformin during acute illness/hospitalization * ACHS glucometer checks * Med CC diet * Med SSI for glucose correction (9) Esophageal erosions: Assessment and Plan: Chronic * Continue home PPI (10) Insomnia: Assessment and Plan: Chronic * Continue home HS trazodone and melatonin * Give PRN benadryl PO if needed (11) Anxiety: Assessment and Plan: Chronic * Continue home lorazepam (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
--- NOTE | 2023-06-15 09:40 | CM.NOTE ---
Rounds made with Dr. Piper, discussed diagnosis with pt CHF and echo results. Pt verbalizes understanding. No discharge today.
[2023-06-15] MEDS: LISINOPRIL 20 MG TABLET PO (09:42)
[2023-06-15] MEDS: AMLODIPINE BESYLATE 5 MG TABLET 2.5 MG PO (09:42)
[2023-06-15] MEDS: ARIPIPRAZOLE 2 MG TABLET PO (09:42)
[2023-06-15] MEDS: DOCUSATE SODIUM 100 MG CAPSULE PO ×2 (09:43→21:39)
[2023-06-15] MEDS: AMANTADINE HCL 100 MG CAPSULE PO ×2 (09:43→21:39)
[2023-06-15] MEDS: FUROSEMIDE 40 MG/4 ML VIAL IVP ×2 (09:43→19:40)
[2023-06-15] MEDS: MAGNESIUM HYDROXIDE 2,400 MG/10 ML ORAL.SUSP 2400 MG PO (09:45)
[2023-06-15] MEDS: BIOTIN 10000 MCG 10000 EACH PO ×2 (09:46→21:40)
[2023-06-15] MEDS: CRANBERRY 400 MG 400 EACH PO ×2 (09:46→21:41)
[2023-06-15 11:21] LABS: Glucometer 295 mg/dL (74-106)
--- NOTE | 2023-06-15 11:52 | PT.DAILY ---
Physical Therapy Daily Note PT Daily Note/Assess Start: 06/15/23 11:48 Freq: Status: Active Protocol: Document 06/15/23 11:48 LILY (Rec: 06/15/23 11:51 JENNIFERKULWINDER [id number]) Physical Therapy Daily Note/Assessment Time In/Time Out Time In 11:22 Time Out 11:39 Pain In Pain N/A Pain Out Pain N/A Subjective Subjective Pt supine upon arrival. Agrees to PT. Denies pain currently. brought straight cane for pts use. Therapeutic Exercise Time Therapeutic Exercise Minutes (minutes) 5 Therapeutic Exercise Units 0 Therapeutic Exercise Treatment Therapeutic Exercise Treatment Seated bilat LE strengthening ex complete while sitting in BS chair 15x ea. Therapeutic Activity Time Therapeutic Activity Minutes (minutes) 10 Therapeutic Activity Units 1 Therapeutic Activity Treatment Bed Mobility Ability Standby Assistance Chair Transfer Ability Contact Guard Assist,Minimum Assist Therapeutic Activity Comments Supine>sit SBA. Sit>stand to SC CGA due to slight posterior LOB. Pt amb 50' with SC, CGA with occ need for Lida due to pt feeling unsteady. She reports her legs just feel weak. Pt sits in BS chair to to complete bilat LE strengthening ex then remains in BS chair upon completion. CAll light is within reach and needs met. Total Physical Therapy Time Total Therapy Minutes 15 Total Physical Therapy Units 1 Summary Daily Note Summary Improved gait endurance but not as steady today. Needs occ Lida to avoid LOB.
[2023-06-15] MEDS: CARVEDILOL 12.5 MG TABLET PO ×2 (12:06→21:39)
[2023-06-15] MEDS: INSULIN ASPART 300 UNIT/3 ML PEN SUBQ ×3 (12:06→21:38)
--- NOTE | 2023-06-15 12:53 | P.CACN_ITS ---
History of Present Illness History of Present Illness Consult date: 06/15/23 Requesting physician: Shaikh Feliz Chief complaint: PNEUMONIA/HYPOXIA Narrative: 83 yo female with a past medical history of post polio syndrome, DMT2, HTN, and right common femoral DVT (January 2022); who presented to the ED complaining of shortness of breath. She has a family member who is a nurse and came over and checked her O2 sats which were 73% on room air. EMS was contacted for transport to the ED and EMS documented 77% on room air on their arrival. The patient was transported to the ED for further evaluation. Workup in the ED revealed tachycardia (109), tachypnea (26), hypoxia (85% RA), and leukocytosis (14.6). Lactic acidosis (2.3), and elevated BNP (8894) were also noted. A troponin and procalcitonin were unremarkable. Influenza and COVID swabs were negative. Mild dehydration and hyperkalemia (5.5) were also noted. Chest x-ray revealed bilateral lower lobe and perihilar opacities consistent with multifocal pneumonia. She was admitted yesterday afternoon to the hospitalist service as an inpatient for multifocal pneumonia and acute respiratory failure. She was admitted for a working Dx of ADHF. She notes that she had a DVT diagnosed last January and is no longer on anticoagulation, merely a low-dose aspirin daily. Due to the sudden onset of her symptoms and her associated tachycardia and hypoxia, D-dimer and consider CTA of the chest to rule out PE. She had an ECHO which reveals new onset cardiomyopathy. She was started on Diuretics and has done better. She has noted progressive SOB but does 10miles on a stationary bike. No prior cardiac eval in the past. EKG: Sinus tachycardia [facility] Medical History (Updated 06/15/23 @ 09:50 by Melissa Souza NP) 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00 - Pure hypercholesterolemia, unspecified (ICD-10) Fatty liver ?K76.0 - Fatty (change of) liver, not elsewhere classified (ICD-10) Osteopenia ?M85.80 - Other specified disorders of bone density and structure, unspecified site (ICD-10) Hypertension ?I10 - Essential (primary) hypertension (ICD-10) Diabetes ?E11.9 - Type 2 diabetes mellitus without complications (ICD-10) Hiatal hernia ?K44.9 - Diaphragmatic hernia without obstruction or gangrene (ICD-10) Esophageal erosions ?K22.10 - Ulcer of esophagus without bleeding (ICD-10) 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 - Osteopathy after poliomyelitis, right lower leg (ICD-10) ?B91 - Sequelae of poliomyelitis (ICD-10) Spina bifida ?Q05.9 - Spina bifida, unspecified (ICD-10) Surgical History S/P right rotator cuff repair ?Z98.890 - Other specified postprocedural states (ICD-10) H/O: hysterectomy ?Z90.710 - Acquired absence of both cervix and uterus (ICD-10) History of appendectomy ?Z90.49 - Acquired absence of other specified parts of digestive tract (ICD- 10) H/O tubal ligation ?Z98.51 - Tubal ligation status (ICD-10) Social History Within the past year, how often did you have a drink containing alcohol: monthly or less Smoking status: Former smoker Highest level of school completed/degree received: some college, no degree Meds Home Medications and Allergies Home Medications Medication Instructions Recorded Confirmed Type amantadine HCl 100 mg capsule 100 mg PO BID 06/13/23 06/13/23 History amlodipine 2.5 mg tablet 2.5 mg PO DAILY 06/13/23 06/13/23 History aripiprazole 2 mg tablet 2 mg PO DAILY 06/13/23 06/13/23 History aspirin 81 mg tablet,delayed 81 mg PO BEDTIME 06/13/23 06/13/23 History release (Adult Aspirin Regimen) biotin 10,000 mcg capsule 10,000 mcg PO BID 06/13/23 06/13/23 History cranberry 400 mg capsule 400 mg PO BID 06/13/23 06/13/23 History dextroamphetamine-amphetamine 15 15 mg PO DAILY 06/13/23 06/13/23 History mg tablet docusate sodium 100 mg capsule 100 mg PO BID 06/13/23 06/13/23 History ezetimibe 10 mg tablet 10 mg PO BEDTIME 06/13/23 06/13/23 History lisinopril 20 mg tablet 20 mg PO DAILY 06/13/23 06/13/23 History lorazepam 0.5 mg tablet 0.5 mg PO Q8H PRN anxiety 06/13/23 06/13/23 History melatonin 10 mg capsule 10 mg PO BEDTIME 06/13/23 06/13/23 History metformin 500 mg tablet,extended 1,000 mg PO .DINNER 06/13/23 06/13/23 History release 24 hr omeprazole 20 mg capsule,delayed 20 mg PO .DINNER 06/13/23 06/13/23 History release omeprazole 40 mg capsule,delayed 40 mg PO .BREAKFAST 06/13/23 06/13/23 History release ondansetron HCl 4 mg tablet 4 mg PO Q6H PRN nausea and vomiting 06/13/23 06/13/23 History oxybutynin chloride 5 mg tablet 5 mg PO Q8H PRN bladder spasms 06/13/23 06/13/23 History sertraline 50 mg tablet 50 mg PO BEDTIME 06/13/23 06/13/23 History trazodone 150 mg tablet 150 mg PO .QHS 06/13/23 06/13/23 History Allergies Allergy/AdvReac Type Severity Reaction Status Date / Time adhesive tape Allergy Blistering Verified 06/13/23 15:31 aspirin AdvReac Gastiritis Verified 06/13/23 15:31 Exam Constitutional Vital Signs, click to edit/add: Last Vital Signs Temp 98.2 F 06/15/23 12:00 Pulse 103 H 06/15/23 12:01 Resp 18 06/15/23 12:00 BP 124/73 06/15/23 12:00 Pulse Ox 95 06/15/23 12:00 O2 Del Method Room Air 06/15/23 12:00 O2 Flow Rate 1 06/15/23 04:45 Common normals: no apparent distress General appearance: cooperative Orientation/consciousness: Yes awake [facility] Common normals: normocephalic Results Labs and Meds Lab results: Cardiac Enzymes 06/15/23 Range/Units 04:28 AST 13 L (15-37) U/L CBC 06/15/23 Range/Units 04:28 WBC 6.4 (4.0-11.0) 10^3/uL RBC 3.98 L (4.20-5.40) 10^6/uL Hgb 11.9 L (12.0-16.0) g/dL Hct 36.4 (36.0-48.0) % Plt Count 301 (150-450) 10^3/uL Neut # (Auto) 3.8 (1.4-6.5) 10^3/uL Lymph # (Auto) 2.0 (1.2-3.8) 10^3/uL [place] # (Auto) 0.4 (0.3-0.8) 10^3/uL Eos # (Auto) 0.2 (0.0-0.7) 10^3/uL Baso # (Auto) 0.0 (0.0-0.1) 10^3/uL Comprehensive Metabolic Panel 06/15/23 Range/Units 04:28 Sodium 132 L (136-145) mmol/L Potassium 4.1 (3.5-5.1) mmol/L Chloride 97 L (98-107) mmol/L Carbon Dioxide 25.0 (21.0-32.0) mmol/L BUN 17.0 (7.0-18.0) mg/dL Creatinine 0.84 (0.55-1.02) mg/dL Glucose 134 H (74-106) mg/dL Calcium 8.5 (8.5-10.1) mg/dL AST 13 L (15-37) U/L ALT 30 (14-59) U/L Alkaline Phosphatase 87 (46-116) U/L Total Protein 6.8 (6.4-8.2) g/dL Albumin 3.0 L (3.4-5.0) g/dL Intake and Output 06/14/23 06/15/23 06/15/23 23:59 07:59 15:59 Intake Total 540 / 1490 Output Total 1800 / 4800 250 / 4800 1500 / 1500 Balance -1800 / -3310 290 / -3310 -1500 / -1500 Intake: Oral 540 / 1440 Output: Urine Amount (Catheter) 1800 / 4800 250 / 4800 1500 / 1500 Urethral 1800 / 4800 250 / 4800 1500 / 1500 Other: Weight 66.8 kg Assessment and Plan Assessment and Plan (1) Acute HFrEF (heart failure with reduced ejection fraction): Assessment and Plan: Assessment and Plan Acute HFrEF (heart failure with reduced ejection fraction): Ct Diuretics and BB for now. Careful diuretic consideration keeping an eye on creat/ BUN. When stable can proceed with ischemia eval with Nuclear stress test if not done recently. (2) Acute respiratory failure: Assessment and Plan: Ct O2 and watch improvement on diuretics (3) Multifocal pneumonia: Assessment and Plan: Ct Abx (4) UTI (urinary tract infection): (5) Insomnia:
--- NOTE | 2023-06-15 13:30 | CM.NOTE ---
Second Notice of Important Message From Medicare discussed with pt, she denies any questions or concerns.
[2023-06-15] MEDS: OMEPRAZOLE 20 MG CAPSULE.DR PO (15:51)
[2023-06-15] MEDS: CEFTRIAXONE 1,000 MG in 0.9 % SODIUM CHLORIDE 50 ML 100 MG IV (15:51)
[2023-06-15 15:52] LABS: Glucometer 142 mg/dL (74-106)
--- NOTE | 2023-06-15 17:13 | PC.NURSE ---
patient has a chronic moser, changed out as ordered. Awaiting urine collection for specimen
[2023-06-15 19:14] LABS: Bilirubin Urine NEGATIVE (NEGATIVE); Blood Urine TRACE-I (NEGATIVE); Clarity Urine CLEAR (CLEAR); Color Urine LT. YELLOW (YELLOW); Glucose Urine UA NEGATIVE (NEGATIVE); Ketones Urine NEGATIVE (NEGATIVE); Leukocyte Esterase Urine MODERATE (NEGATIVE); Nitrite Urine NEGATIVE (NEGATIVE); Protein Urine 30 mg/dL (NEG/TRACE); Urobilinogen Urine 0.2 EU/dL (0.2-1.0)
[2023-06-15 19:17] LABS: Urine Microscopic Indicated YES
[2023-06-15 19:33] LABS: Bacteria Urine NONE SEEN #/HPF (NONE SEEN); RBC Urine 0-2 #/HPF (0-2)
[2023-06-15 19:34] LABS: Crystals Seen? None Seen #/HPF (None Seen); Mucus Urine NONE SEEN (NONE SEEN); Squamous Epithelial Cell Urine RARE #/LPF (NONE/RARE)
[2023-06-15 19:35] LABS: Cast Seen? NONE SEEN #/LPF (NONE SEEN); Urine Culture Indicated YES
[2023-06-15 21:39] LABS: Glucometer 205 mg/dL (74-106)
[2023-06-15] MEDS: TRAZODONE HCL 150 MG TABLET PO (21:39)
[2023-06-15] MEDS: SERTRALINE HCL 50 MG TABLET PO (21:39)
[2023-06-15] MEDS: EZETIMIBE 10 MG TABLET PO (21:39)
[2023-06-15] MEDS: ASPIRIN 81 MG TABLET.DR PO (21:39)
[2023-06-15] MEDS: NON-FORMULARY 1 EACH (Melatonin 10 mg capsule) 10 EACH PO (21:40)
[2023-06-15] MEDS: DIPHENHYDRAMINE HCL 25 MG/10 ML ELIXIR PO (21:47)
[2023-06-16] VITALS (21 sets, daily range): BP systolic 103–118; BP diastolic 61–74; PULSE 75–93; RESP 18; TEMP 36.3–36.8; O2SAT 91–98
[2023-06-16 04:42] LABS: Basophils Percent Auto 0.6 % (0.2-2.0); Eosinophils Absolute Auto 0.4 10^3/uL (0.0-0.7); Eosinophils Percent Auto 5.5 % (0.9-7.0); Hematocrit 38.4 % (36.0-48.0); Hemoglobin 12.4 g/dL (12.0-16.0); Immature Granulocytes Abs Auto 0.02 10^3/uL (0.00-0.03); Immature Granulocytes Pct Auto 0.3 % (0.0-0.5); Lymphocytes Absolute Auto 2.3 10^3/uL (1.2-3.8); Lymphocytes Percent Auto 36.2 % (20.5-60.0); Mean Corpuscular HGB Conc 32.3 g/dL (29.9-35.2); Mean Corpuscular Hemoglobin 29.2 pg (26.7-34.0); Mean Corpuscular Volume 90.6 fL (81.0-99.0); Mean Platelet Volume 8.8 fL (9.5-13.5); Monocytes Absolute Auto 0.5 10^3/uL (0.3-0.8); Monocytes Percent Auto 7.5 % (1.7-12.0); Neutrophils Absolute Auto 3.2 10^3/uL (1.4-6.5); Neutrophils Percent Auto 49.9 % (43.0-75.0); Platelet Count 327 10^3/uL (150-450); Red Blood Count 4.24 10^6/uL (4.20-5.40); Red Cell Distribution Width 14.3 % (11.0-15.0); White Blood Count 6.4 10^3/uL (4.0-11.0)
[2023-06-16 05:15] LABS: Alanine Aminotransferase 27 U/L (14-59); Albumin Globulin Ratio 0.8; Albumin Level 2.9 g/dL (3.4-5.0); Alkaline Phosphatase 86 U/L (46-116); Anion Gap 11.6; Aspartate Amino Transferase 13 U/L (15-37); Bilirubin Total 0.3 mg/dL (0.2-1.0); Calcium 8.7 mg/dL (8.5-10.1); Carbon Dioxide 26.6 mmol/L (21.0-32.0); Chloride 97 mmol/L (98-107); Estimated GFR (African America >60 (>=60); Estimated GFR (Non-African Ame >60 (>=60); Globulin 3.8 g/dL; Glucose 141 mg/dL (74-106); Potassium 4.2 mmol/L (3.5-5.1); Sodium 131 mmol/L (136-145); Total Protein 6.7 g/dL (6.4-8.2)
[2023-06-16] MEDS: OMEPRAZOLE 40 MG CAPSULE.DR PO (05:39)
[2023-06-16] MEDS: HEPARIN SODIUM (PORCINE) 5,000 UNIT/ML VIAL 5000 UNIT SUBQ ×2 (05:39→16:35)
--- NOTE | 2023-06-16 07:32 | XR_ITS ---
The [address] [address] Patient Name: JAMARI ELIZALDE MRN: [id number] date: 1940 Sex: F Assigned Patient Location: [place] Current Patient Location: [place] Accession/Order Number: [id number] Exam Date: 06/16/2023 07:28 Report Date: 06/16/2023 07:50 At the request of: ABIMAEL GONZALEZ Procedure: XR chest 1V EXAMINATION: XR chest 1V HISTORY: hypoxia, CHF monitoring COMPARISON: XR chest 06/13/2023 FINDINGS: LUNGS: Dense opacities within medial right lung base and left retrocardiac region. VASCULATURE: No increased pulmonary vasculature. PLEURA: No pneumothorax, effusion, or pleural thickening. CARDIAC: No cardiomegaly or cardiac silhouette abnormality. MEDIASTINUM: No visible mass or adenopathy. BONES: No fracture or visible bone lesion. OTHER: Negative. XR/XR chest 1V IMPRESSION: 1. Mild to moderate bibasilar infiltrates which have decreased slightly compared to prior study. Pneumonia versus atelectasis versus pulmonary edema. Electronically authenticated by: ERIC BERRY Date: 06/16/2023 07:50
[2023-06-16 08:17] LABS: Glucometer 157 mg/dL (74-106)
[2023-06-16] MEDS: DOCUSATE SODIUM 100 MG CAPSULE PO ×2 (08:54→21:05)
[2023-06-16] MEDS: AMLODIPINE BESYLATE 5 MG TABLET 2.5 MG PO (08:54)
[2023-06-16] MEDS: AMANTADINE HCL 100 MG CAPSULE PO ×2 (08:55→21:05)
[2023-06-16] MEDS: ARIPIPRAZOLE 2 MG TABLET PO (08:56)
[2023-06-16] MEDS: LISINOPRIL 20 MG TABLET PO (08:56)
[2023-06-16] MEDS: CARVEDILOL 12.5 MG TABLET PO ×2 (08:56→21:05)
[2023-06-16] MEDS: BIOTIN 10000 MCG 10000 EACH PO ×2 (08:57→21:08)
[2023-06-16] MEDS: CRANBERRY 400 MG 400 EACH PO ×2 (08:58→21:08)
[2023-06-16] MEDS: INSULIN ASPART 300 UNIT/3 ML PEN SUBQ ×4 (08:58→21:04)
[2023-06-16] MEDS: POLYETHYLENE GLYCOL 3350 17 GM POWDER PACKET PO (09:00)
[2023-06-16] MEDS: MAGNESIUM HYDROXIDE 2,400 MG/10 ML ORAL.SUSP 2400 MG PO (09:01)
[2023-06-16] MEDS: FUROSEMIDE 40 MG/4 ML VIAL IVP ×2 (09:39→19:46)
[2023-06-16] MEDS: CIPROFLOXACIN IN 5 % DEXTROSE 400 MG/200 ML PIGGYBACK 200 MG IV (10:34)
[2023-06-16] MEDS: 0.9 % SODIUM CHLORIDE 250 ML 10 ML IV (10:35)
--- NOTE | 2023-06-16 10:45 | PT.DAILY ---
Physical Therapy Daily Note PT Daily Note/Assess Start: 06/15/23 11:48 Freq: Status: Active Protocol: Document 06/16/23 10:20 MATT (Rec: 06/16/23 10:45 MATT [id number]) Physical Therapy Daily Note/Assessment Time In/Time Out Time In 10:20 Time Out 10:38 Subjective Subjective Patient reports feeling much better. Reports just walked with nursing down andrade using RW with no issues. Reports fatigued from this, does not want to walk right now, but will do LE exercises. Confirmed with nurse Leisa, that patient did ambulate down andrade greater than 100' with use of RW, no issues with gait . Was doing walk test, that patient worked hard and was fatigued post ambulation. Therapeutic Exercise Time Therapeutic Exercise Minutes (minutes) 15 Therapeutic Exercise Units 1 Therapeutic Exercise Treatment Therapeutic Exercise Treatment Exercises were completed in both long sitting and seated position from chair. 10 reps each with utilizing isometrics , AROM, and MRE in all planes. Total Physical Therapy Time Total Therapy Minutes 15 Total Physical Therapy Units 1 Summary Daily Note Summary Patient is showing steady improved strength at this time . Was able to tolerate exercise program without increase in pain or unscheduled rest breaks. Did discuss RW vs SC with patient, and patient agrees that RW is the better option for now.
--- NOTE | 2023-06-16 11:10 | P.PN_ITS ---
<Statement entered by Shaikh Feliz MD - 06/16/23 11:40> This documentation has been reviewed and approved. Seen and examined. Case discussed with Melissa. Agree with her clinical documentation and decision making Exam: NAD, comfortable Normal RR, decreased BS at bases. No resp compromuse Normal HR, no murmurs Assessment/plan Acute combined (systolic and diastolic) HF Acute resp failure with hypoxia HTN HLD UTI sec to serratia and enterococcus faecalis C/w IV lasix, monitor UO, daily weights. Still volume overload on exam. Will switch to PO ciprofloxacin for UTI. On coreg 12.5 q12 along with lisinopril. Cardiology consult appreciated. Will decide on inpatient vs outpatient nuclear stress test based on her clinical progress. Patient is improving clinically but still volume overload on exam. Will need outpatient f/u with cardiology. Progress Note: Subjective Subjective Interval history: 06/16/23 0850 The patient is sitting up in bed having just finished eating her breakfast. She reports improved dyspnea, but still notes SOB with eating and ambulation. She has had adequate diuresis (-6L), and her CXR is improving. She is off O2 supplementation. She could benefit from one more day of IVP lasix diuresis, and close monitoring of her BP while on diuretics and new Coreg prescription and of her renal function on diuretics. She was seen in consult by cardiology yesterday who recommend continued diuresis in the hospital. Disposition: Likely d/c in 24-48 hrs on PO lasix. Exam Constitutional Vital Signs, click to edit/add: Last Vital Signs Temp 97.4 F L 06/16/23 08:00 Pulse 89 06/16/23 09:57 Resp 18 06/16/23 08:30 BP 118/74 06/16/23 08:00 Pulse Ox 95 06/16/23 08:00 O2 Del Method Room Air 06/16/23 08:00 O2 Flow Rate 1 06/15/23 04:45 Common normals: no apparent distress, oriented x3 and alert General appearance: cooperative Orientation/consciousness: Yes awake HENMN Common normals: normocephalic, head/scalp atraumatic and hearing grossly normal bilaterally Eye Common normals: PERRL, EOMs intact bilaterally, conjunctivae normal and no scleral icterus General eye: normal appearance of both eyes Chest Common normals: inspection of chest normal Chest: symmetrical chest wall rise Respiratory Common normals: normal respiratory effort and no use of accessory muscles Effort & inspection: able to speak in complete sentences Auscultation: rales (BLL, L>R) Cardio Common normals: regular rate, regular rhythm, S1 normal heart sound, S2 normal heart sound, no murmurs and peripheral pulses 2+ throughout GI Common normals: Normal to inspection, nondistended, normoactive bowel sounds present, soft to palpation, non-tender and no hepatosplenomegaly Bladder/kidney exam: bladder normal to palpation Extremity Common normals: normal to inspection and no calf tenderness General: no clubbing, no cyanosis and no edema Neuro Common normals: CN's II-XII intact bilaterally, moves all extremities, no focal motor deficits and no sensory deficits noted Psych Common normals: mental status grossly normal Progress Note: Objective Labs Labs: Short CBC 06/16/23 Range/Units 04:30 WBC 6.4 (4.0-11.0) 10^3/uL Hgb 12.4 (12.0-16.0) g/dL Hct 38.4 (36.0-48.0) % Plt Count 327 (150-450) 10^3/uL BMP 06/16/23 04:30 Sodium 131 L Potassium 4.2 Chloride 97 L Carbon Dioxide 26.6 BUN 21.0 H Creatinine 0.84 Glucose 141 H Calcium 8.7 Liver Function 06/16/23 Range/Units 04:30 Total Bilirubin 0.3 (0.2-1.0) mg/dL AST 13 L (15-37) U/L ALT 27 (14-59) U/L Alkaline Phosphatase 86 (46-116) U/L Albumin 2.9 L (3.4-5.0) g/dL Urine 06/15/23 Range/Units 18:45 Urine Color Lt. yellow (YELLOW) Urine Clarity Clear (CLEAR) Urine pH 8.0 (5.0-9.0) Ur Specific [place] 1.010 (1.005-1.025) Urine Protein 30 A (NEG/TRACE) mg/dL Urine Glucose (UA) Negative (NEGATIVE) mg/dL Progress Note: A&P Assessment and Plan (1) Acute HFrEF (heart failure with reduced ejection fraction): Assessment and Plan: Acute * 2D Echo 06/14/23 - LVEF 20-25% w/ grade 2 diastolic dysfunction * New dx for this pt * C/S cardiology - we appreciate their assistance with this pt's care * Continue inpatient diuresis for now * Continue BB * Plan follow up ischemic work up when stable - likely outpatient * Continue IVPB Lasix 40 mg BID * Adequate OP and improved hypoxia, but remains hypervolemic per CXR, but improving * Continue Coreg 3.125 BID. Pt already taking an ACEi * Trend BNP daily - trending down today * Daily weights, strict I&O * Monitor renal fx on diuretic therapy - remains WNL today * CBC, CMP daily (2) Acute respiratory failure: Assessment and Plan: Acute * Resolved - pt stable on RA, but continuees to note SOB w/ exertion/eating * Monitor - resume O2 supplementation if needed to keep sats > 90% * Likely 2/2 acute CHF * PNA no longer clinically suspected * No PE on CTA chest * See Acute HFrEF (3) Multifocal pneumonia: Assessment and Plan: Acute * No longer clinically suspected * CXR findings likely d/t pulmonary edema/pleural effusions * Pt remains afebrile, without leukocytosis * D/C Azithromycin. See UTI for other antibiotics (4) UTI (urinary tract infection): Assessment and Plan: Acute * Pos UA on admission * Pt w/ indwelling catheter at baseline * Repeat UA after cather was replaced remains pos for UTI * Initial UA C&S growing s. marcescens and e. faecalis, > 100,000 colonies of both * s marcescens sensitive to rocephin, but does not cover e. faecalis - d/c Rocephin * Start Cipro IVPB BID per sensitivities, plan to continue PO at d/c * Repeat UA C&S from 06/15/23 clean catheter sample pending (5) Insomnia: Assessment and Plan: Chronic * Continue home HS trazodone and melatonin * PRN benadryl PO if needed (6) Depression: Assessment and Plan: Chronic * Continue home aripiprazole, sertraline, and trazedone (7) Hypercholesteremia: Assessment and Plan: Chronic * Continue home zetia (8) Hypertension: Assessment and Plan: Chronic * Continue home amlodipine and lisinopril (9) Diabetes: Assessment and Plan: Chronic * Hold home metformin during acute illness/hospitalization * ACHS glucometer checks * Med CC diet * Med SSI for glucose correction (10) Esophageal erosions: Assessment and Plan: Chronic * Continue home PPI (11) Anxiety: Assessment and Plan: Chronic * Continue home lorazepam (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
--- NOTE | 2023-06-16 11:10 | PM.PN ---
Progress Note: Subjective Subjective Interval history: 06/16/23 0850 The patient is sitting up in bed having just finished eating her breakfast. She reports improved dyspnea, but still notes SOB with eating and ambulation. She has had adequate diuresis (-6L), and her CXR is improving. She is off O2 supplementation. She could benefit from one more day of IVP lasix diuresis, and close monitoring of her BP while on diuretics and new Coreg prescription and of her renal function on diuretics. She was seen in consult by cardiology yesterday who recommend continued diuresis in the hospital. Disposition: Likely d/c in 24-48 hrs on PO lasix. Exam Constitutional Vital Signs, click to edit/add: Last Vital Signs Temp 97.4 F L 06/16/23 08:00 Pulse 89 06/16/23 09:57 Resp 18 06/16/23 08:30 BP 118/74 06/16/23 08:00 Pulse Ox 95 06/16/23 08:00 O2 Del Method Room Air 06/16/23 08:00 O2 Flow Rate 1 06/15/23 04:45 Common normals: no apparent distress, oriented x3 and alert General appearance: cooperative Orientation/consciousness: Yes awake HENMT Common normals: normocephalic, head/scalp atraumatic and hearing grossly normal bilaterally Eye Common normals: PERRL, EOMs intact bilaterally, conjunctivae normal and no scleral icterus General eye: normal appearance of both eyes Chest Common normals: inspection of chest normal Chest: symmetrical chest wall rise Respiratory Common normals: normal respiratory effort and no use of accessory muscles Effort & inspection: able to speak in complete sentences Auscultation: rales (BLL, L>R) Cardio Common normals: regular rate, regular rhythm, S1 normal heart sound, S2 normal heart sound, no murmurs and peripheral pulses 2+ throughout GI Common normals: Normal to inspection, nondistended, normoactive bowel sounds present, soft to palpation, non-tender and no hepatosplenomegaly Bladder/kidney exam: bladder normal to palpation Extremity Common normals: normal to inspection and no calf tenderness General: no clubbing, no cyanosis and no edema Neuro Common normals: CN's II-XII intact bilaterally, moves all extremities, no focal motor deficits and no sensory deficits noted Psych Common normals: mental status grossly normal Progress Note: Objective Labs Labs: Short CBC 06/16/23 Range/Units 04:30 WBC 6.4 (4.0-11.0) 10^3/uL Hgb 12.4 (12.0-16.0) g/dL Hct 38.4 (36.0-48.0) % Plt Count 327 (150-450) 10^3/uL BMP 06/16/23 04:30 Sodium 131 L Potassium 4.2 Chloride 97 L Carbon Dioxide 26.6 BUN 21.0 H Creatinine 0.84 Glucose 141 H Calcium 8.7 Liver Function 06/16/23 Range/Units 04:30 Total Bilirubin 0.3 (0.2-1.0) mg/dL AST 13 L (15-37) U/L ALT 27 (14-59) U/L Alkaline Phosphatase 86 (46-116) U/L Albumin 2.9 L (3.4-5.0) g/dL Urine 06/15/23 Range/Units 18:45 Urine Color Lt. yellow (YELLOW) Urine Clarity Clear (CLEAR) Urine pH 8.0 (5.0-9.0) Ur Specific [place] 1.010 (1.005-1.025) Urine Protein 30 A (NEG/TRACE) mg/dL Urine Glucose (UA) Negative (NEGATIVE) mg/dL Progress Note: A&P Assessment and Plan (1) Acute HFrEF (heart failure with reduced ejection fraction): Assessment and Plan: Acute 2D Echo 06/14/23 - LVEF 20-25% w/ grade 2 diastolic dysfunction New dx for this pt C/S cardiology - we appreciate their assistance with this pt's care Continue inpatient diuresis for now Continue BB Plan follow up ischemic work up when stable - likely outpatient Continue IVPB Lasix 40 mg BID Adequate OP and improved hypoxia, but remains hypervolemic per CXR, but improving Continue Coreg 3.125 BID. Pt already taking an ACEi Trend BNP daily - trending down today Daily weights, strict I&O Monitor renal fx on diuretic therapy - remains WNL today CBC, CMP daily (2) Acute respiratory failure: Assessment and Plan: Acute Resolved - pt stable on RA, but continuees to note SOB w/ exertion/eating Monitor - resume O2 supplementation if needed to keep sats > 90% Likely 2/2 acute CHF PNA no longer clinically suspected No PE on CTA chest See Acute HFrEF (3) Multifocal pneumonia: Assessment and Plan: Acute No longer clinically suspected CXR findings likely d/t pulmonary edema/pleural effusions Pt remains afebrile, without leukocytosis D/C Azithromycin. See UTI for other antibiotics (4) UTI (urinary tract infection): Assessment and Plan: Acute Pos UA on admission Pt w/ indwelling catheter at baseline Repeat UA after cather was replaced remains pos for UTI Initial UA C&S growing s. marcescens and e. faecalis, > 100,000 colonies of both s marcescens sensitive to rocephin, but does not cover e. faecalis - d/c Rocephin Start Cipro IVPB BID per sensitivities, plan to continue PO at d/c Repeat UA C&S from 06/15/23 clean catheter sample pending (5) Insomnia: Assessment and Plan: Chronic Continue home HS trazodone and melatonin PRN benadryl PO if needed (6) Depression: Assessment and Plan: Chronic Continue home aripiprazole, sertraline, and trazedone (7) Hypercholesteremia: Assessment and Plan: Chronic Continue home zetia (8) Hypertension: Assessment and Plan: Chronic Continue home amlodipine and lisinopril (9) Diabetes: Assessment and Plan: Chronic Hold home metformin during acute illness/hospitalization ACHS glucometer checks Med CC diet Med SSI for glucose correction (10) Esophageal erosions: Assessment and Plan: Chronic Continue home PPI (11) Anxiety: Assessment and Plan: Chronic Continue home lorazepam (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
--- NOTE | 2023-06-16 11:31 | CM.NOTE ---
Rounds made with Dr. Piper, no discharge today. Pt will need further diuresing.
[2023-06-16 11:38] LABS: Glucometer 160 mg/dL (74-106)
[2023-06-16 16:34] LABS: Glucometer 153 mg/dL (74-106)
[2023-06-16] MEDS: MAALOX (MAG HYDROX/ALUMINUM HYD/SIMETH) 30 ML ORAL.SUSP PO (16:35)
[2023-06-16] MEDS: OMEPRAZOLE 20 MG CAPSULE.DR PO (16:38)
[2023-06-16 21:05] LABS: Glucometer 210 mg/dL (74-106)
[2023-06-16] MEDS: EZETIMIBE 10 MG TABLET PO (21:05)
[2023-06-16] MEDS: TRAZODONE HCL 150 MG TABLET PO (21:05)
[2023-06-16] MEDS: CIPROFLOXACIN HCL 500 MG TABLET PO (21:05)
[2023-06-16] MEDS: SERTRALINE HCL 50 MG TABLET PO (21:05)
[2023-06-16] MEDS: ASPIRIN 81 MG TABLET.DR PO (21:05)
[2023-06-16] MEDS: DIPHENHYDRAMINE HCL 25 MG/10 ML ELIXIR PO (21:06)
[2023-06-16] MEDS: LORAZEPAM 0.5 MG TABLET PO (21:07)
[2023-06-16] MEDS: NON-FORMULARY 1 EACH (Melatonin 10 mg capsule) 10 EACH PO (21:09)
[2023-06-17] VITALS (14 sets, daily range): BP systolic 93–126; BP diastolic 55–77; PULSE 82–94; RESP 16–18; TEMP 36.4–37; O2SAT 91–97
[2023-06-17 04:58] LABS: Basophils Percent Auto 0.5 % (0.2-2.0); Eosinophils Absolute Auto 0.4 10^3/uL (0.0-0.7); Eosinophils Percent Auto 5.5 % (0.9-7.0); Hematocrit 37.3 % (36.0-48.0); Hemoglobin 12.2 g/dL (12.0-16.0); Immature Granulocytes Abs Auto 0.03 10^3/uL (0.00-0.03); Immature Granulocytes Pct Auto 0.5 % (0.0-0.5); Lymphocytes Absolute Auto 2.4 10^3/uL (1.2-3.8); Lymphocytes Percent Auto 36.9 % (20.5-60.0); Mean Corpuscular HGB Conc 32.7 g/dL (29.9-35.2); Mean Corpuscular Hemoglobin 29.6 pg (26.7-34.0); Mean Corpuscular Volume 90.5 fL (81.0-99.0); Mean Platelet Volume 8.9 fL (9.5-13.5); Monocytes Absolute Auto 0.6 10^3/uL (0.3-0.8); Monocytes Percent Auto 9.7 % (1.7-12.0); Neutrophils Percent Auto 46.9 % (43.0-75.0); Platelet Count 329 10^3/uL (150-450); Red Blood Count 4.12 10^6/uL (4.20-5.40); Red Cell Distribution Width 13.9 % (11.0-15.0); White Blood Count 6.4 10^3/uL (4.0-11.0)
[2023-06-17 05:18] LABS: Alanine Aminotransferase 27 U/L (14-59); Albumin Globulin Ratio 0.9; Alkaline Phosphatase 88 U/L (46-116); Anion Gap 13.4; Aspartate Amino Transferase 10 U/L (15-37); BUN Creatinine Ratio 25.8; Bilirubin Total 0.4 mg/dL (0.2-1.0); Calcium 8.7 mg/dL (8.5-10.1); Carbon Dioxide 26.8 mmol/L (21.0-32.0); Chloride 91 mmol/L (98-107); Estimated GFR (African America >60 (>=60); Estimated GFR (Non-African Ame >60 (>=60); Globulin 3.5 g/dL; Glucose 146 mg/dL (74-106); Potassium 4.2 mmol/L (3.5-5.1); Sodium 127 mmol/L (136-145); Total Protein 6.5 g/dL (6.4-8.2)
[2023-06-17] MEDS: HEPARIN SODIUM (PORCINE) 5,000 UNIT/ML VIAL 5000 UNIT SUBQ ×2 (05:43→16:54)
[2023-06-17] MEDS: OMEPRAZOLE 40 MG CAPSULE.DR PO (05:43)
[2023-06-17 07:34] LABS: Glucometer 172 mg/dL (74-106)
[2023-06-17] MEDS: CIPROFLOXACIN HCL 500 MG TABLET PO ×2 (08:02→21:04)
[2023-06-17] MEDS: ARIPIPRAZOLE 2 MG TABLET PO (08:02)
[2023-06-17] MEDS: LISINOPRIL 20 MG TABLET PO (08:02)
[2023-06-17] MEDS: AMANTADINE HCL 100 MG CAPSULE PO ×2 (08:02→21:04)
[2023-06-17] MEDS: MAGNESIUM HYDROXIDE 2,400 MG/10 ML ORAL.SUSP 2400 MG PO ×2 (08:03→21:03)
[2023-06-17] MEDS: DOCUSATE SODIUM 100 MG CAPSULE PO ×2 (08:03→21:03)
[2023-06-17] MEDS: POLYETHYLENE GLYCOL 3350 17 GM POWDER PACKET PO (08:03)
[2023-06-17] MEDS: CARVEDILOL 12.5 MG TABLET PO ×2 (08:03→21:04)
[2023-06-17] MEDS: CRANBERRY 400 MG 400 EACH PO ×2 (08:06→21:05)
[2023-06-17] MEDS: LORAZEPAM 0.5 MG TABLET PO ×2 (08:06→21:03)
[2023-06-17] MEDS: INSULIN ASPART 300 UNIT/3 ML PEN SUBQ ×4 (08:06→21:03)
[2023-06-17] MEDS: BIOTIN 10000 MCG 10000 EACH PO ×2 (08:06→21:04)
--- NOTE | 2023-06-17 10:07 | PT.DAILY ---
Physical Therapy Daily Note PT Daily Note/Assess Start: 06/15/23 11:48 Freq: Status: Active Protocol: Document 06/17/23 10:02 LILY (Rec: 06/17/23 10:07 LILY [id number]) Physical Therapy Daily Note/Assessment Time In/Time Out Time In 09:45 Time Out 10:01 Pain In Pain N/A Pain Out Pain N/A Subjective Subjective Pt supine upon arrival. Agrees to PT. Denies pain currently. Slept well until woken up by nursing this morning. Therapeutic Exercise Time Therapeutic Exercise Minutes (minutes) 7 Therapeutic Exercise Units 0 Therapeutic Exercise Treatment Therapeutic Exercise Treatment Seated bilat LE strengthening ex complete in BS chair in both long sitting and feet lowered - 10-15x ea. Therapeutic Activity Time Therapeutic Activity Minutes (minutes) 8 Therapeutic Activity Units 1 Therapeutic Activity Treatment Bed Mobility Ability Minimum Assist Chair Transfer Ability Standby Assistance Therapeutic Activity Comments Supine>sit Lida on this date to advances hips to EOB. Sits EOB unsupported without LOB. Sit>stand SBA with increased time needed and slight posterior lean but able to self correct. Pt amb with RW 130' SBA. Returned to room in BS chair for seated ex. Remains in BS chair with call light in reach and needs met. Total Physical Therapy Time Total Therapy Minutes 15 Total Physical Therapy Units 1 Summary Daily Note Summary Improving gait endurance. Steadiness improved with RW vs SC. Min fatigued upon completion.
--- NOTE | 2023-06-17 10:22 | CM.NOTE ---
Rounds made with Dr. Piper, no discharge today.
[2023-06-17 10:52] LABS: Anion Gap 14.6; Calcium 8.6 mg/dL (8.5-10.1); Carbon Dioxide 24.5 mmol/L (21.0-32.0); Chloride 90 mmol/L (98-107); Estimated GFR (African America 54 (>=60); Estimated GFR (Non-African Ame 45 (>=60); Glucose 196 mg/dL (74-106); Potassium 4.1 mmol/L (3.5-5.1); Sodium 125 mmol/L (136-145)
[2023-06-17 11:05] LABS: Glucometer 184 mg/dL (74-106)
--- NOTE | 2023-06-17 11:08 | NM_ITS ---
Patient Name: JAMARI ELIZALDE MR#: [id number] : 1940 Exam Date: 06/18/2023 Ordering Doctor: SHAIKH Noe PRICE . RADIOLOGY REPORT PROCEDURE: NM REESE PERF SPECT REST STR COMPARISON: None. INDICATIONS: Acute congestive heart failure TECHNIQUE: Exam Description: Stress/Rest one day protocol gated SPECT Rest Imagin.2 mCi Tc-99m Cardiolite IV on 06/18/2023 Stress Imaging 30.2 mCi Tc-99m Cardiolite IV on 06/18/2023 Exercise Protocol: 0.4 mg Lexiscan given IV Heart Rate (bpm): Rest: 80 Max: 84 PMHR: 60 Blood Pressure: Rest: 118/68 Max: 118/68 Symptoms: Rest and peak stress ECG findings were pending and the exercise portion of the study was pending per attending physician Dr. NAIR . For more details please see separate cardiac stress test report. FINDINGS: QUALITY OF STUDY: Excellent. PERFUSION DEFECT: None. LOCATION: SIZE: N/A. SEVERITY: N/A. TYPE: N/A. WALL MOTION: Severe hypokinesis: Global LV SIZE: Enlarged; EDV 169 mL. TID / TCD: Yes; 1.2 LVEF: Abnormal. Calculated EF 26%. SUMMARY: Myocardial perfusion imaging study has ABNORMAL findings. CONCLUSION: 1. No acute or reversible ischemia. No appreciable fixed/remote infarctions. 2. Marked left ventriculomegaly, 169 mL 3. Markedly low left ventricle ejection fraction, 26%. 4. Abnormal transient ischemic dilation. 5. Severe, global hypokinesis. Dictated by: Ankit Malloy M.D. on 06/18/2023 at 12:09 Approved by: Ankit Malloy M.D. on 06/18/2023 at 12:13
--- NOTE | 2023-06-17 11:09 | P.IMPN_ITS ---
Progress Note: A&P Assessment and Plan (1) Acute combined systolic (congestive) and diastolic (congestive) heart failure: Assessment and Plan: New diagnosis, on Coreg, Lisiniopril. D/c lasix as developed hyponatremia and I suspect this is form overdiuresis. Nuclear stress test tomorrow to ascertain the etiology and r/o ischemic cardiomyopathy as the underlying etiology for her HFrEF. (2) Hyponatremia: Assessment and Plan: Hold lasix. Recheck Sodium (3) Acute respiratory failure: Assessment and Plan: Now on RA Qualifiers: Respiratory failure complication: hypoxia Qualified Code(s): J96.01 - Acute respiratory failure with hypoxia (4) UTI (urinary tract infection): Assessment and Plan: Sec to E fecalis and Serratia On Cipro Qualifiers: Urinary tract infection type: acute cystitis (5) Insomnia: Assessment and Plan: Cw trazodone Qualifiers: Insomnia type: psychophysiologic Qualified Code(s): F51.04 - Psychophysiologic insomnia (6) Depression: Assessment and Plan: C/w home meds, stable mood Qualifiers: Depression Type: major depressive disorder Major depression recurrence: recurrent Active/Remission status: in full remission Qualified Code(s): F33.42 - Major depressive disorder, recurrent, in full remission (7) Hypercholesteremia: Assessment and Plan: C/w ezetimibe (8) Hypertension: Assessment and Plan: D/c amlodipine C/w lisinopril and coreg Qualifiers: Hypertension type: primary hypertension Qualified Code(s): I10 - Essential (primary) hypertension (9) Diabetes: Assessment and Plan: Will benefit from being on jardinace. SSI while inpatient. on metformin as outpatient. Qualifiers: Diabetes mellitus type: type 2 Diabetes mellitus alf insulin use: without alf use Diabetes mellitus complication status: without complication Qualified Code(s): E11.9 - Type 2 diabetes mellitus without complications Plan Nuclear stress test tomorrow. Hold lasix tonight. Recheck BMP to ensure serum sodium is better. Internal Medicine - PN: Subj Subjective Interval history: Seen and examined. No active complaints to offer other than constipation. She has not had a BM since admission. No overnight events. Exam Constitutional Vital Signs, click to edit/add: Last Vital Signs Temp 98.6 F 06/17/23 08:12 Pulse 82 06/17/23 09:59 Resp 16 06/17/23 08:12 BP 126/77 06/17/23 08:12 Pulse Ox 92 L 06/17/23 08:12 O2 Del Method Room Air 06/17/23 08:12 O2 Flow Rate 1 06/15/23 04:45 Documenting provider has reviewed patient's vital signs: yes Common normals: no apparent distress and oriented x3 Respiratory Common normals: normal respiratory effort and no use of accessory muscles Effort & inspection: able to speak in complete sentences Auscultation: crackles Laterality: left at the base Cardio Common normals: no JVD, regular rate, regular rhythm, S1 normal heart sound and S2 normal heart sound Extremity Common normals: normal to inspection Neuro Common normals: oriented x3, CN's II-XII intact bilaterally, moves all extremities and no focal motor deficits Psych Common normals: mental status grossly normal, thought process normal and cooperative Internal Medicine - PN: Obj Da Labs Labs: Laboratory Results - last 24 hr 06/16/23 06/16/23 06/16/23 11:35 16:33 21:03 WBC RBC Hgb Hct MCV MCH MCHC RDW Plt Count MPV Neut % (Auto) Lymph % (Auto) [place] % (Auto) Eos % (Auto) Baso % (Auto) Neut # (Auto) Lymph # (Auto) [place] # (Auto) Eos # (Auto) Baso # (Auto) Abs Immat Gran (auto) Imm/Tot Granulo (auto) Sodium Potassium Chloride Carbon Dioxide Anion Gap BUN Creatinine Est GFR ( Amer) Est GFR (Non-Af Amer) BUN/Creatinine Ratio Glucose Calcium Total Bilirubin AST ALT Alkaline Phosphatase NT-Pro-B Natriuret Pep Total Protein Albumin Globulin Albumin/Globulin Ratio POC Glucose 160 H 153 H 210 H 06/17/23 06/17/23 06/17/23 04:27 07:33 10:20 WBC 6.4 RBC 4.12 L Hgb 12.2 Hct 37.3 MCV 90.5 MCH 29.6 MCHC 32.7 RDW 13.9 Plt Count 329 MPV 8.9 L Neut % (Auto) 46.9 Lymph % (Auto) 36.9 [place] % (Auto) 9.7 Eos % (Auto) 5.5 Baso % (Auto) 0.5 Neut # (Auto) 3.0 Lymph # (Auto) 2.4 [place] # (Auto) 0.6 Eos # (Auto) 0.4 Baso # (Auto) 0.0 Abs Immat Gran (auto) 0.03 Imm/Tot Granulo (auto) 0.5 Sodium 127 L 125 L Potassium 4.2 4.1 Chloride 91 L 90 L Carbon Dioxide 26.8 24.5 Anion Gap 13.4 14.6 BUN 23.0 H 22.0 H Creatinine 0.89 1.16 H Est GFR ( Amer) >60 54 L Est GFR (Non-Af Amer) >60 45 L BUN/Creatinine Ratio 25.8 19.0 Glucose 146 H 196 H Calcium 8.7 8.6 Total Bilirubin 0.4 AST 10 L ALT 27 Alkaline Phosphatase 88 NT-Pro-B Natriuret Pep 33875.0 H* Total Protein 6.5 Albumin 3.0 L Globulin 3.5 Albumin/Globulin Ratio 0.9 POC Glucose 172 H 06/17/23 11:04 WBC RBC Hgb Hct MCV MCH MCHC RDW Plt Count MPV Neut % (Auto) Lymph % (Auto) [place] % (Auto) Eos % (Auto) Baso % (Auto) Neut # (Auto) Lymph # (Auto) [place] # (Auto) Eos # (Auto) Baso # (Auto) Abs Immat Gran (auto) Imm/Tot Granulo (auto) Sodium Potassium Chloride Carbon Dioxide Anion Gap BUN Creatinine Est GFR ( Amer) Est GFR (Non-Af Amer) BUN/Creatinine Ratio Glucose Calcium Total Bilirubin AST ALT Alkaline Phosphatase NT-Pro-B Natriuret Pep Total Protein Albumin Globulin Albumin/Globulin Ratio POC Glucose 184 H Urinary Catheter Management Urinary Catheter Management Urethral: Cath placed during this visit: yes Urethral indwelling: Yes Reason for continuing: not indwelling catheter Insertion date: 06/15/23 Insertion time: 17:09
[2023-06-17] MEDS: BISACODYL 5 MG TABLET PO (11:29)
--- NOTE | 2023-06-17 11:53 | CM.NOTE ---
Nuclear stress test will be scheduled for 3/15 am, inject around 06:15am and doctor time 0800am. Pt will be NPO after midnight. Updated RN and Dr. Piper.
--- NOTE | 2023-06-17 11:58 | ECG_ITS ---
The [facility] Test Date: 2023-06-17 Pat Name: JAMARI ELIZALDE Department: Room: [facility] Gender: Female Rug Measurer: : 1940 Requested By: SYEDA CLEMENTE Order Number: [id number] Reading MD: MARILYN THOMPSON Measurements Intervals [place] Rate: 86 P: 88 NE: 190 QRS: 108 QRSD: 93 T: 109 QT: 360 QTc: 431 Interpretive Statements SINUS RHYTHM MARKED RIGHT AXIS DEVIATION [QRS AXIS > 100] NONSPECIFIC ST & T-WAVE ABNORMALITY Compared to ECG 06/13/2023 10:57:42 Sinus tachycardia no longer present Persistent inferolateral ST/T wave changes Electronically Signed On 06-17-2023 21:48:23 EDT by MARILYN THOMPSON
[2023-06-17] MEDS: LACTULOSE 10 GM/15 ML (237ML) SOLUTION 20 GM PO ×2 (13:21→21:06)
[2023-06-17] MEDS: 0.9 % SODIUM CHLORIDE 500 ML 250 ML IV (13:21)
[2023-06-17 16:08] LABS: Glucometer 192 mg/dL (74-106)
[2023-06-17] MEDS: OMEPRAZOLE 20 MG CAPSULE.DR PO (16:54)
[2023-06-17] MEDS: SERTRALINE HCL 50 MG TABLET PO (21:03)
[2023-06-17] MEDS: DIPHENHYDRAMINE HCL 25 MG/10 ML ELIXIR PO (21:03)
[2023-06-17] MEDS: ASPIRIN 81 MG TABLET.DR PO (21:03)
[2023-06-17] MEDS: EZETIMIBE 10 MG TABLET PO (21:04)
[2023-06-17] MEDS: TRAZODONE HCL 150 MG TABLET PO (21:04)
[2023-06-17] MEDS: NON-FORMULARY 1 EACH (Melatonin 10 mg capsule) 10 EACH PO (21:07)
[2023-06-17 21:09] LABS: Glucometer 191 mg/dL (74-106)
[2023-06-18] VITALS (10 sets, daily range): BP systolic 89–112; BP diastolic 52–66; PULSE 72–85; RESP 16–20; TEMP 36.2–36.6; O2SAT 93–96
[2023-06-18 04:57] LABS: Basophils Percent Auto 0.7 % (0.2-2.0); Eosinophils Absolute Auto 0.3 10^3/uL (0.0-0.7); Eosinophils Percent Auto 5.4 % (0.9-7.0); Hematocrit 34.9 % (36.0-48.0); Hemoglobin 11.5 g/dL (12.0-16.0); Immature Granulocytes Abs Auto 0.04 10^3/uL (0.00-0.03); Immature Granulocytes Pct Auto 0.7 % (0.0-0.5); Lymphocytes Absolute Auto 2.3 10^3/uL (1.2-3.8); Lymphocytes Percent Auto 37.9 % (20.5-60.0); Mean Corpuscular Hemoglobin 29.7 pg (26.7-34.0); Mean Corpuscular Volume 90.2 fL (81.0-99.0); Monocytes Absolute Auto 0.5 10^3/uL (0.3-0.8); Monocytes Percent Auto 7.9 % (1.7-12.0); Neutrophils Absolute Auto 2.9 10^3/uL (1.4-6.5); Neutrophils Percent Auto 47.4 % (43.0-75.0); Platelet Count 307 10^3/uL (150-450); Red Blood Count 3.87 10^6/uL (4.20-5.40); Red Cell Distribution Width 13.9 % (11.0-15.0); White Blood Count 6.1 10^3/uL (4.0-11.0)
[2023-06-18 05:18] LABS: Alanine Aminotransferase 23 U/L (14-59); Albumin Globulin Ratio 0.9; Albumin Level 2.9 g/dL (3.4-5.0); Alkaline Phosphatase 85 U/L (46-116); Anion Gap 13.2; Aspartate Amino Transferase 13 U/L (15-37); Bilirubin Total 0.3 mg/dL (0.2-1.0); Calcium 8.2 mg/dL (8.5-10.1); Chloride 87 mmol/L (98-107); Estimated GFR (African America >60 (>=60); Estimated GFR (Non-African Ame >60 (>=60); Globulin 3.3 g/dL; Glucose 137 mg/dL (74-106); Potassium 4.2 mmol/L (3.5-5.1); Total Protein 6.2 g/dL (6.4-8.2)
[2023-06-18 05:32] LABS: Sodium 120 mmol/L (136-145)
[2023-06-18] MEDS: OMEPRAZOLE 40 MG CAPSULE.DR PO (05:36)
[2023-06-18] MEDS: HEPARIN SODIUM (PORCINE) 5,000 UNIT/ML VIAL 5000 UNIT SUBQ ×2 (05:36→17:21)
--- NOTE | 2023-06-18 06:34 | XR_ITS ---
The [address] [address] Patient Name: JAMARI ELIZALDE MRN: [id number] date: 1940 Sex: F Assigned Patient Location: [place] Current Patient Location: [place] Accession/Order Number: [id number] Exam Date: 06/18/2023 06:40 Report Date: 06/18/2023 06:58 At the request of: SHAIKH DEE Procedure: XR chest 1V EXAMINATION: XR chest 1V HISTORY: chf COMPARISON: XR chest 06/16/2023 FINDINGS: LUNGS: Bilateral moderate opacities within lung bases. VASCULATURE: No increased pulmonary vasculature. PLEURA: No pneumothorax, effusion, or pleural thickening. CARDIAC: No cardiomegaly or cardiac silhouette abnormality. MEDIASTINUM: No visible mass or adenopathy. BONES: No fracture or visible bone lesion. OTHER: Negative. XR/XR chest 1V IMPRESSION: 1. Mild to moderate bibasilar infiltrates versus atelectasis; increased compared to 06/16/2023. Electronically authenticated by: ERIC BERRY Date: 06/18/2023 06:58
[2023-06-18 06:52] LABS: Sodium Urine Random 12 mmol/L (30-90)
[2023-06-18 06:53] LABS: Creatinine Urine Random 36.76 mg/dL (20.00-300.00)
--- NOTE | 2023-06-18 08:18 | SWNOTE1 ---
Pt continuing to do well with therapy, no needs have been identified for discharge.
[2023-06-18] MEDS: REGADENOSON 0.4 MG/5 ML SYRINGE 0.400000000000000022 MG IV (08:39)
[2023-06-18] MEDS: CIPROFLOXACIN HCL 500 MG TABLET PO ×2 (08:59→21:11)
[2023-06-18] MEDS: ARIPIPRAZOLE 2 MG TABLET PO (08:59)
[2023-06-18] MEDS: CARVEDILOL 12.5 MG TABLET PO ×2 (08:59→21:11)
[2023-06-18] MEDS: DOCUSATE SODIUM 100 MG CAPSULE PO ×2 (08:59→21:11)
[2023-06-18] MEDS: AMANTADINE HCL 100 MG CAPSULE PO ×2 (08:59→21:11)
[2023-06-18] MEDS: CRANBERRY 400 MG 400 EACH PO ×2 (09:06→21:03)
--- NOTE | 2023-06-18 10:53 | CT_ITS ---
[address] [address] Patient Name: JAMARI ELIZALDE MRN: [id number] date: 1940 Sex: F Assigned Patient Location: [place] Current Patient Location: [place] Accession/Order Number: [id number] Exam Date: 06/18/2023 11:00 Report Date: 06/18/2023 11:55 At the request of: SHAIKH DEE Procedure: CT chest wo con EXAMINATION: CT chest wo con HISTORY: shortness of breath COMPARISON: XR chest 06/18/2023, CTA chest 06/14/2023 TECHNIQUE: Multi-planar CT images were obtained without and/or with IV contrast as indicated by examination type. Axial, Coronal, and Sagittal images. Dose reduction techniques were achieved by using automated exposure control and/or adjustment of mA and/or kV according to patient size and/or use of iterative reconstruction technique. FINDINGS: LUNGS: Mild to moderate infiltrates versus passive atelectasis within posterior dependent lung bases. PLEURA: Bilateral pleural effusions, 2.4 cm in thickness on right, 1.1 cm on left. VASCULATURE: No abnormality. JEREMIAH: No mass or adenopathy. MEDIASTINUM: No mass or adenopathy. CARDIAC: Myocardium mainly. Atherosclerotic coronary artery disease. No pericardial effusion. AORTA: No aneurysm or dissection. CHEST WALL: No mass or axillary adenopathy. BONES: No bone lesion or fracture. LIMITED ABDOMEN: Large hiatal hernia. Limited images of the upper abdomen. OTHER: Negative. CT/CT chest wo con IMPRESSION: 1. Moderate size bilateral pleural effusions and mild-moderate bibasilar atelectasis versus infiltrates. 2. Large hiatal hernia. 3. Mild cardiomegaly. Electronically authenticated by: ERIC BERRY Date: 06/18/2023 11:55
--- NOTE | 2023-06-18 11:34 | CM.NOTE ---
Rounds made with Dr. Piper and discussed lab results w low Na and CXR results. Plan is to order CT scan of chest. Currently awaiting second part of nuc stress test. No discharge today.
--- NOTE | 2023-06-18 11:46 | PM.IMPN1 ---
Progress Note: A&P Assessment and Plan (1) Acute combined systolic (congestive) and diastolic (congestive) heart failure: Assessment and Plan: New diagnosis, on Coreg, Lisiniopril. I stopped her lasix yesterday and gave her gentle hydration as i suspect i had overdiuresed her. However, I feel she is stil volume overload will since her sodium worsened with IVF and witholding her lasix. Nuclear stress test today to ascertain the etiology and r/o ischemic cardiomyopathy as the underlying etiology for her HFrEF. (2) Hyponatremia: Assessment and Plan: likely hypervolemic hypoantremia. Previously, I was under the impressed that I overiduresed her and gave her 250 ml of NS. Her sodium worsened afterwards. Her urine sodium is low and osm is normal. THye are not indicative of SIADH. However, given diuretic therapy, its difficult to determine volume status based on urine sodium and osmolarity. I will resume her Lasix 40 q12 as she seems to be retaining fluid based on clinical exam and do not appear dry. (3) Acute respiratory failure: Assessment and Plan: Now on RA due to acute CHF. Qualifiers: Respiratory failure complication: hypoxia Qualified Code(s): J96.01 - Acute respiratory failure with hypoxia (4) UTI (urinary tract infection): Assessment and Plan: Sec to E fecalis and Serratia On Cipro Qualifiers: Urinary tract infection type: acute cystitis (5) Insomnia: Assessment and Plan: Cw trazodone Qualifiers: Insomnia type: psychophysiologic Qualified Code(s): F51.04 - Psychophysiologic insomnia (6) Depression: Assessment and Plan: C/w home meds, stable mood Qualifiers: Depression Type: major depressive disorder Major depression recurrence: recurrent Active/Remission status: in full remission Qualified Code(s): F33.42 - Major depressive disorder, recurrent, in full remission (7) Hypercholesteremia: Assessment and Plan: C/w ezetimibe (8) Hypertension: Assessment and Plan: D/c amlodipine C/w lisinopril and coreg Qualifiers: Hypertension type: primary hypertension Qualified Code(s): I10 - Essential (primary) hypertension (9) Diabetes: Assessment and Plan: Will benefit from being on jardinace. SSI while inpatient. on metformin as outpatient. Qualifiers: Diabetes mellitus type: type 2 Diabetes mellitus residential insulin use: without residential use Diabetes mellitus complication status: without complication Qualified Code(s): E11.9 - Type 2 diabetes mellitus without complications Plan Will require close monitoring due to her hyponatremia. Started back on lasix. CT chest to assess for pleural effusions Internal Medicine - PN: Subj Subjective Interval history: Seen and examined. No active complaints to offer other than constipation. Exam Constitutional Vital Signs, click to edit/add: Last Vital Signs Temp 97.7 F 06/18/23 07:21 Pulse 82 06/18/23 07:21 Resp 16 06/18/23 07:39 BP 107/61 06/18/23 09:06 Pulse Ox 95 06/18/23 11:17 O2 Del Method Room Air 06/18/23 11:17 O2 Flow Rate 1 06/15/23 04:45 Documenting provider has reviewed patient's vital signs: yes Common normals: no apparent distress and oriented x3 Respiratory Common normals: normal respiratory effort and no use of accessory muscles Effort & inspection: able to speak in complete sentences Auscultation: crackles Laterality: left at the base and diminished lung sounds on the right in the lower lung estrada Cardio Common normals: no JVD, regular rate, regular rhythm, S1 normal heart sound and S2 normal heart sound Extremity Common normals: normal to inspection Neuro Common normals: oriented x3, CN's II-XII intact bilaterally, moves all extremities and no focal motor deficits Psych Common normals: mental status grossly normal, thought process normal and cooperative Internal Medicine - PN: Obj Da Labs Labs: Laboratory Results - last 24 hr 06/17/23 06/17/23 06/18/23 16:08 21:02 04:29 WBC 6.1 RBC 3.87 L Hgb 11.5 L Hct 34.9 L MCV 90.2 MCH 29.7 MCHC 33.0 RDW 13.9 Plt Count 307 MPV 9.0 L Neut % (Auto) 47.4 Lymph % (Auto) 37.9 [place] % (Auto) 7.9 Eos % (Auto) 5.4 Baso % (Auto) 0.7 Neut # (Auto) 2.9 Lymph # (Auto) 2.3 [place] # (Auto) 0.5 Eos # (Auto) 0.3 Baso # (Auto) 0.0 Abs Immat Gran (auto) 0.04 H Imm/Tot Granulo (auto) 0.7 H Sodium 120 L* Potassium 4.2 Chloride 87 L Carbon Dioxide 24.0 Anion Gap 13.2 BUN 20.0 H Creatinine 0.87 Est GFR ( Amer) >60 Est GFR (Non-Af Amer) >60 BUN/Creatinine Ratio 23.0 Glucose 137 H Calcium 8.2 L Total Bilirubin 0.3 AST 13 L ALT 23 Alkaline Phosphatase 85 NT-Pro-B Natriuret Pep 26328.0 H* Total Protein 6.2 L Albumin 2.9 L Globulin 3.3 Albumin/Globulin Ratio 0.9 Ur Random Creatinine Ur Random Sodium POC Glucose 192 H 191 H 06/18/23 06:40 WBC RBC Hgb Hct MCV MCH MCHC RDW Plt Count MPV Neut % (Auto) Lymph % (Auto) [place] % (Auto) Eos % (Auto) Baso % (Auto) Neut # (Auto) Lymph # (Auto) [place] # (Auto) Eos # (Auto) Baso # (Auto) Abs Immat Gran (auto) Imm/Tot Granulo (auto) Sodium Potassium Chloride Carbon Dioxide Anion Gap BUN Creatinine Est GFR ( Amer) Est GFR (Non-Af Amer) BUN/Creatinine Ratio Glucose Calcium Total Bilirubin AST ALT Alkaline Phosphatase NT-Pro-B Natriuret Pep Total Protein Albumin Globulin Albumin/Globulin Ratio Ur Random Creatinine 36.76 Ur Random Sodium 12 L POC Glucose Urinary Catheter Management Urinary Catheter Management Urethral: Cath placed during this visit: yes Urethral indwelling: Yes Reason for continuing: not indwelling catheter Insertion date: 06/15/23 Insertion time: 17:09
--- NOTE | 2023-06-18 12:52 | PT.DAILY ---
Physical Therapy Daily Note PT Daily Note/Assess Start: 06/15/23 11:48 Freq: Status: Active Protocol: Document 06/18/23 12:49 LILY (Rec: 06/18/23 12:52 LILY [id number]) Physical Therapy Daily Note/Assessment Time In/Time Out Time In 12:20 Time Out 12:35 Pain In Pain N/A Pain Out Pain N/A Subjective Subjective Pt supine upon arrival. Agrees to PT. Therapeutic Exercise Time Therapeutic Exercise Minutes (minutes) 4 Therapeutic Exercise Units 0 Therapeutic Exercise Treatment Therapeutic Exercise Treatment Seated LE strengthening ex while sitting unsupported at EOB - no LOB. Therapeutic Activity Time Therapeutic Activity Minutes (minutes) 9 Therapeutic Activity Units 1 Therapeutic Activity Treatment Bed Mobility Ability Standby Assistance Chair Transfer Ability Standby Assistance Therapeutic Activity Comments Supine>sit SBA with increased time. Seated ex complete while sitting EOB unsupported. Sit> stand SBA. Pt amb 90' with RW, SBA with short step length/ decreased alcides. Returned supine SBA with increased time to get legs in and over in bed. Bed alarm set and call light is within reach. Total Physical Therapy Time Total Therapy Minutes 13 Total Physical Therapy Units 1 Summary Daily Note Summary Improving gait endurance. Cont to require extra time with functional transfers but does complete these herself without outside assistance.
[2023-06-18 12:53] LABS: Glucometer 226 mg/dL (74-106)
[2023-06-18] MEDS: INSULIN ASPART 300 UNIT/3 ML PEN SUBQ ×2 (13:03→21:17)
[2023-06-18] MEDS: FUROSEMIDE 40 MG/4 ML VIAL IVP ×2 (13:07→21:11)
--- NOTE | 2023-06-18 15:00 | PCN_ITS ---
CARDIAC STRESS TEST ? Requesting Physician:? Dr. Piper Procedure Date:? 06/18/2023 ? INTERPRETING PROVIDER:? Ranjeet Barone M.D. ? INDICATION:? Change in EF1 echo. ? STRESS TEST TYPE:? Lexiscan myocardial perfusion imaging. ? Resting Heart Rate:? 80 Max Heart Rate:? 84 Peak Maximal Heart Rate Percentage:? 60 Baseline Resting Blood Pressure:? 118/68 Maximum Blood Pressure:? 118/68 ST Changes:? No ST changes meeting the criteria for ischemia. Symptoms:? None reported. Arrhythmias:? PVCs. ? CONCLUSION: 1.? Resting EKG demonstrates normal sinus rhythm, right axis deviation, poor R- wave progression indicative of possible anterior infarct, age indeterminate. 2.? There were no EKG changes meeting the criteria of ischemia post Lexiscan infusion. 3.? Please refer to separately interpreted nuclear myocardial perfusion imaging. ? MTDD
[2023-06-18 16:26] LABS: Glucometer 106 mg/dL (74-106)
[2023-06-18 17:17] LABS: Anion Gap 13.8; Calcium 8.4 mg/dL (8.5-10.1); Carbon Dioxide 22.7 mmol/L (21.0-32.0); Chloride 89 mmol/L (98-107); Estimated GFR (African America >60 (>=60); Estimated GFR (Non-African Ame >60 (>=60); Glucose 107 mg/dL (74-106); Potassium 4.5 mmol/L (3.5-5.1)
[2023-06-18] MEDS: OMEPRAZOLE 20 MG CAPSULE.DR PO (17:21)
[2023-06-18 17:27] LABS: Sodium 121 mmol/L (136-145)
[2023-06-18] MEDS: NON-FORMULARY 1 EACH (Melatonin 10 mg capsule) 10 EACH PO (21:03)
[2023-06-18] MEDS: SERTRALINE HCL 50 MG TABLET PO (21:04)
[2023-06-18] MEDS: TRAZODONE HCL 150 MG TABLET PO (21:05)
[2023-06-18] MEDS: BIOTIN 10000 MCG 10000 EACH PO (21:05)
[2023-06-18] MEDS: LACTULOSE 10 GM/15 ML (237ML) SOLUTION 20 GM PO (21:07)
[2023-06-18] MEDS: EZETIMIBE 10 MG TABLET PO (21:11)
[2023-06-18] MEDS: ASPIRIN 81 MG TABLET.DR PO (21:12)
[2023-06-18 21:23] LABS: Glucometer 182 mg/dL (74-106)
[2023-06-19] MEDS: LORAZEPAM 0.5 MG TABLET PO (01:51)
[2023-06-19 03:12] VITALS: BP 120/76; PULSE 89; RESP 18; TEMP 36.8; O2SAT 93
[2023-06-19] MEDS: HEPARIN SODIUM (PORCINE) 5,000 UNIT/ML VIAL 5000 UNIT SUBQ (05:41)
[2023-06-19] MEDS: OMEPRAZOLE 40 MG CAPSULE.DR PO (05:42)
[2023-06-19 07:25] LABS: Glucometer 155 mg/dL (74-106)
[2023-06-19 07:54] VITALS: BP 113/71; PULSE 89; RESP 18; TEMP 36.6; O2SAT 94
[2023-06-19] MEDS: CIPROFLOXACIN HCL 500 MG TABLET PO (08:53)
[2023-06-19] MEDS: FUROSEMIDE 40 MG/4 ML VIAL IVP (08:53)
[2023-06-19] MEDS: LISINOPRIL 20 MG TABLET PO (08:53)
[2023-06-19] MEDS: CARVEDILOL 12.5 MG TABLET PO (08:53)
[2023-06-19] MEDS: ARIPIPRAZOLE 2 MG TABLET PO (08:53)
[2023-06-19] MEDS: AMANTADINE HCL 100 MG CAPSULE PO (08:53)
[2023-06-19] MEDS: DOCUSATE SODIUM 100 MG CAPSULE PO (08:53)
[2023-06-19] MEDS: BIOTIN 10000 MCG 10000 EACH PO (08:54)
[2023-06-19] MEDS: CRANBERRY 400 MG 400 EACH PO (08:54)
--- NOTE | 2023-06-19 10:40 | PT.DAILY ---
Physical Therapy Daily Note PT Daily Note/Assess Start: 06/15/23 11:48 Freq: Status: Active Protocol: Document 06/19/23 10:29 [id number] (Rec: 06/19/23 10:40 [id number]) Physical Therapy Daily Note/Assessment Time In/Time Out Time In 09:17 Time Out 09:35 Pain In Pain Level 3 Pain Out Pain Level 1 Subjective Subjective Patient reports pain to her stomach. Patient received seated in chair bedside. Agreeable to participate with PT. Patient requests to put on her shoes so she will be able to walk better. Requests to return to bed after treatment. States her daughter walked with her while using RW in the andrade last night and she feels she did pretty good. Therapeutic Exercise Time Therapeutic Exercise Minutes (minutes) 9 Therapeutic Exercise Units 1 Therapeutic Exercise Treatment Therapeutic Exercise Treatment Seated CATRACHITO LE ther ex to increase functional strength and mobility. Performed 10 reps of: ankle pumps, LAQ's, marching, hip ABD/ADD. Therapeutic Activity Time Therapeutic Activity Minutes (minutes) 9 Therapeutic Activity Units 1 Therapeutic Activity Treatment Bed Mobility Ability Contact Guard Assist Chair Transfer Ability Contact Guard Assist Therapeutic Activity Comments Patient requires MOD to MAX A to tamia/doff shoes. Chair to stand @ RW transfer with use of CATRACHITO UE on chair arm rest is CGA. Patient ambulated ~120' x 1 with RW with CGA +1. Did require 1 standing therapeutic rest break due to fatigue @ ~ 60'. Patient seated in chair at bedside for ther ex. Upon completion patient transferred from sit to stand to RW with CGA +1 with use of hands and ambulated ~12 feet to opposite side of bed to get in. Patient positioned with HOB elevated and call mcclain within reach. Total Physical Therapy Time Total Therapy Minutes 18 Total Physical Therapy Units 2 Summary Daily Note Summary Patient able to perform functional mobility when provided time to complete. No LOB noted during gait or turns . Able to to lift CATRACHITO LE into bed without A. Verbal use for bridging to position self in bed. Patient home with family upon DC.
[2023-06-19 11:11] LABS: Glucometer 219 mg/dL (74-106)
[2023-06-19 11:12] LABS: Basophils Percent Auto 0.3 % (0.2-2.0); Eosinophils Absolute Auto 0.2 10^3/uL (0.0-0.7); Eosinophils Percent Auto 1.8 % (0.9-7.0); Hematocrit 34.5 % (36.0-48.0); Hemoglobin 11.1 g/dL (12.0-16.0); Immature Granulocytes Abs Auto 0.04 10^3/uL (0.00-0.03); Immature Granulocytes Pct Auto 0.5 % (0.0-0.5); Lymphocytes Absolute Auto 1.3 10^3/uL (1.2-3.8); Lymphocytes Percent Auto 14.6 % (20.5-60.0); Mean Corpuscular HGB Conc 32.2 g/dL (29.9-35.2); Mean Corpuscular Hemoglobin 29.2 pg (26.7-34.0); Mean Corpuscular Volume 90.8 fL (81.0-99.0); Mean Platelet Volume 9.3 fL (9.5-13.5); Monocytes Absolute Auto 0.7 10^3/uL (0.3-0.8); Monocytes Percent Auto 7.7 % (1.7-12.0); Neutrophils Absolute Auto 6.5 10^3/uL (1.4-6.5); Neutrophils Percent Auto 75.1 % (43.0-75.0); Platelet Count 322 10^3/uL (150-450); Red Cell Distribution Width 13.9 % (11.0-15.0); White Blood Count 8.7 10^3/uL (4.0-11.0)
[2023-06-19] MEDS: INSULIN ASPART 300 UNIT/3 ML PEN SUBQ (11:46)
[2023-06-19 12:00] VITALS: BP 96/67; PULSE 78; RESP 19; O2SAT 92
[2023-06-19 12:19] VITALS: O2SAT 95
[2023-06-19 12:19] LABS: Anion Gap 16.7; BUN Creatinine Ratio 15.9; Calcium 8.3 mg/dL (8.5-10.1); Carbon Dioxide 23.4 mmol/L (21.0-32.0); Chloride 88 mmol/L (98-107); Estimated GFR (African America 59 (>=60); Estimated GFR (Non-African Ame 49 (>=60); Glucose 218 mg/dL (74-106); Potassium 4.1 mmol/L (3.5-5.1)
[2023-06-19 12:46] LABS: Sodium 124 mmol/L (136-145)
--- NOTE | 2023-06-19 12:48 | PM.DS1 ---
DS: Providers Provider Date of admission: 06/13/23 14:07 Primary care physician: Fozia Tobar NP Consults: 06/13/23 13:48 Occupational Therapy Eval and Treat Routine Reason for consultation: Ambulatory dysfunction/weakness Physical Therapy Eval and Treat Routine Reason for consultation: Ambulatory dysfunction/weakness 06/14/23 18:41 Consult to Cardiology Routine Reason for consultation: Acute congestive HF. Has provider been notified: No DS: Diagnosis Discharge Diagnosis (1) Acute HFrEF (heart failure with reduced ejection fraction): (2) Acute hypoxic respiratory failure: (3) UTI (urinary tract infection): Qualifiers: Urinary tract infection type: acute cystitis (4) Bilateral pleural effusion: (5) Hyponatremia: (6) Diabetes: Qualifiers: Diabetes mellitus type: type 2 Diabetes mellitus assisted insulin use: without assisted use Diabetes mellitus complication status: without complication Qualified Code(s): E11.9 - Type 2 diabetes mellitus without complications (7) Hypertension: Qualifiers: Hypertension type: primary hypertension Qualified Code(s): I10 - Essential (primary) hypertension DS: Summary Hospital Course Hospital Course: Reason for admission: See ER note and H&P for details. 83 y/o female to ER with SOB. C/o URI symptoms for 1-2 weeks. Mild cough and SOB. Woke up from sleep with severe SOB and not able to catch breath. To ER and 77% on room air. Labs showed elevated BNP, elevated WBC and low sodium. Chest x-ray with possible pneumonia. Admitted for treatment. Hospital course: Started rocephin and zithromax for possible pneumonia. Echo performed and showed EF 20-25% and diastolic dysfunction. Started IV lasix and cardiology consulted. [place] symptoms related to CHF and pneumonia ruled out. Urine showed UTI and changed to oral cipro. Cardiology recommended stress test. Coreg added. Sodium lower and gave IV fluids. CT showed bilateral pleural effusions but no infiltrate. Stress test negative for ischemia. Stopped fluids and continued IV lasix. Sodium slightly better at 124. Patient reports history of hyponatremia and on oral NaCl in past. [place] well and discharged home in stable condition. Will continue cipro for UTI. Continue oral lasix, lisinopril, and coreg. Start oral NaCl 1 gram TID. Follow up with PCP in 2-5 days to repeat labs. Follow up with cardiology in 1-2 weeks. Time Spent with Patient Time attestation: Total time spent providing and/or coordinating discharge services: Exam Constitutional Vital Signs, click to edit/add: Last Vital Signs Temp 97.8 F 06/19/23 07:54 Pulse 78 06/19/23 12:00 Resp 19 06/19/23 12:00 BP 96/67 06/19/23 12:00 Pulse Ox 95 06/19/23 12:19 O2 Del Method Room Air 06/19/23 12:19 O2 Flow Rate 1 06/15/23 04:45 Documenting provider has reviewed patient's vital signs: yes Common normals: no apparent distress, oriented x3 and alert HENMT Common normals: normocephalic Eye Common normals: PERRL and EOMs intact bilaterally Respiratory Common normals: normal respiratory effort and clear to auscultation bilaterally Cardio Common normals: regular rate, regular rhythm, no gallops, no murmurs and no rub GI Common normals: Normal to inspection, nondistended, normoactive bowel sounds present and non-tender Extremity Common normals: no pedal edema DS: Data Data Completed and Pending Labs on day of discharge: Labs from last 24 hours 06/19/23 06/19/23 06/19/23 11:09 10:32 07:23 WBC 8.7 RBC 3.80 L Hgb 11.1 L Hct 34.5 L MCV 90.8 MCH 29.2 MCHC 32.2 RDW 13.9 Plt Count 322 MPV 9.3 L Neut % (Auto) 75.1 H Lymph % (Auto) 14.6 L [place] % (Auto) 7.7 Eos % (Auto) 1.8 Baso % (Auto) 0.3 Neut # (Auto) 6.5 Lymph # (Auto) 1.3 [place] # (Auto) 0.7 Eos # (Auto) 0.2 Baso # (Auto) 0.0 Abs Immat Gran (auto) 0.04 H Imm/Tot Granulo (auto) 0.5 Sodium 124 L* Potassium 4.1 Chloride 88 L Carbon Dioxide 23.4 Anion Gap 16.7 BUN 17.0 Creatinine 1.07 H Est GFR ( Amer) 59 L Est GFR (Non-Af Amer) 49 L BUN/Creatinine Ratio 15.9 Glucose 218 H Calcium 8.3 L POC Glucose 219 H 155 H 03/15/24 03/15/24 03/15/24 21:16 16:56 16:25 WBC RBC Hgb Hct MCV MCH MCHC RDW Plt Count MPV Neut % (Auto) Lymph % (Auto) [place] % (Auto) Eos % (Auto) Baso % (Auto) Neut # (Auto) Lymph # (Auto) [place] # (Auto) Eos # (Auto) Baso # (Auto) Abs Immat Gran (auto) Imm/Tot Granulo (auto) Sodium 121 L* Potassium 4.5 Chloride 89 L Carbon Dioxide 22.7 Anion Gap 13.8 BUN 21.0 H Creatinine 0.84 Est GFR ( Amer) >60 Est GFR (Non-Af Amer) >60 BUN/Creatinine Ratio 25.0 Glucose 107 H Calcium 8.4 L POC Glucose 182 H 106 06/18/23 12:52 WBC RBC Hgb Hct MCV MCH MCHC RDW Plt Count MPV Neut % (Auto) Lymph % (Auto) [place] % (Auto) Eos % (Auto) Baso % (Auto) Neut # (Auto) Lymph # (Auto) [place] # (Auto) Eos # (Auto) Baso # (Auto) Abs Immat Gran (auto) Imm/Tot Granulo (auto) Sodium Potassium Chloride Carbon Dioxide Anion Gap BUN Creatinine Est GFR ( Amer) Est GFR (Non-Af Amer) BUN/Creatinine Ratio Glucose Calcium POC Glucose 226 H Discharge Plan Discharge Disposition: Home, Self-Care Condition: Good Discharge Medications: New ciprofloxacin HCl [Cipro] 500 mg tablet 500 mg PO Q12H Qty: 14 0RF furosemide [Lasix] 40 mg tablet 40 mg PO DAILY Qty: 30 0RF carvedilol 12.5 mg Tablet 12.5 mg PO BID Qty: 60 0RF sodium chloride 1,000 mg tablet,soluble 1,000 mg PO TID Qty: 90 0RF Continued amlodipine 2.5 mg tablet 2.5 mg PO DAILY amantadine HCl 100 mg capsule 100 mg PO BID aripiprazole 2 mg tablet 2 mg PO DAILY lisinopril 20 mg tablet 20 mg PO DAILY lorazepam 0.5 mg tablet 0.5 mg PO Q8H PRN (Reason: anxiety) trazodone 150 mg tablet 150 mg PO .QHS dextroamphetamine-amphetamine 15 mg tablet 15 mg PO DAILY metformin 500 mg tablet extended release 24 hr 1,000 mg PO .DINNER biotin 10,000 mcg capsule 10,000 mcg PO BID melatonin 10 mg capsule 10 mg PO BEDTIME sertraline 50 mg tablet 50 mg PO BEDTIME omeprazole 20 mg capsule,delayed release(DR/EC) 20 mg PO .DINNER omeprazole 40 mg capsule,delayed release(DR/EC) 40 mg PO .BREAKFAST aspirin [Adult Aspirin Regimen] 81 mg tablet,delayed release (DR/EC) 81 mg PO BEDTIME cranberry 400 mg capsule 400 mg PO BID Rx Instructions: administer with meals ezetimibe 10 mg tablet 10 mg PO BEDTIME docusate sodium 100 mg capsule 100 mg PO BID oxybutynin chloride 5 mg tablet 5 mg PO Q8H PRN (Reason: bladder spasms) ondansetron HCl 4 mg tablet 4 mg PO Q6H PRN (Reason: nausea and vomiting) Activity: resume usual activities as tolerated Diet: advance to your usual diet Patient Instructions: Heart Failure (DC), Community Acquired Pneumonia (DC) Forms: Portal Instructions Follow Up Appointments: June 22 @ 10am with Fozia Lebron, PRODUCTION TEAM MANAGER [phone]
--- NOTE | 2023-06-21 14:16 | CM.DCFOLLOWU ---
Person spoke with:patient How are you feeling? not feeling too great How is your pain? no pain Did you understand your discharge instructions? yes Do you have any questions about your discharge instructions? no Were you given any prescriptions at discharge? yes Were you able to get your prescriptions filled? yes Do you understand how to take your medications as ordered? yes Do you have any questions about your follow up appointment and do you plan to keep your follow up appointment? no questions, has follow up on 06/23/23 Is there anything else that you would like to discuss? no Questions/Comments/Concerns/Other: At her follow up appt with Fozia Tobar, she is going to inquire about getting therapy in the home. SW advised her to ask BATCHER OPERATOR about home health.
[2023-06-21 15:08] LABS: Osmolality, Urine 258 mOsmol/kg (.)
== END 2023-06-19 14:06 | disposition home or self-care (01) | DRG 291 ==
LOC: ER 13:32 → MS 06-14 06:45
PROVIDERS: Nurse Practitioner; Admitting Provider Internal Medicine; Emergency Provider Emergency Medicine; PCP Nurse Practitioner; Visit Provider Family Medicine
DX: I11.0 Hypertensive heart disease with heart failure (principal); I50.43 Acute on chronic combined systolic (congestive) and diastolic (congestive) heart failure; J96.01 Acute respiratory failure with hypoxia; K22.10 Ulcer of esophagus without bleeding; E87.1 Hypo-osmolality and hyponatremia; N30.00 Acute cystitis without hematuria; B96.89 Other specified bacterial agents as the cause of diseases classified elsewhere; B95.2 Enterococcus as the cause of diseases classified elsewhere; F33.42 Major depressive disorder, recurrent, in full remission; R78.89 Finding of other specified substances, not normally found in blood; F41.9 Anxiety disorder, unspecified; K59.89 Other specified functional intestinal disorders; G14 Postpolio syndrome; R13.10 Dysphagia, unspecified; E86.0 Dehydration; R53.1 Weakness; K59.00 Constipation, unspecified; E87.5 Hyperkalemia; F51.04 Psychophysiologic insomnia; H91.90 Unspecified hearing loss, unspecified ear; R29.6 Repeated falls; E11.42 Type 2 diabetes mellitus with diabetic polyneuropathy; E78.00 Pure hypercholesterolemia, unspecified; K44.9 Diaphragmatic hernia without obstruction or gangrene; N31.9 Neuromuscular dysfunction of bladder, unspecified; Z79.82 Long term (current) use of aspirin; Z86.718 Personal history of other venous thrombosis and embolism; Z90.710 Acquired absence of both cervix and uterus; Z87.891 Personal history of nicotine dependence; Z79.84 Long term (current) use of oral hypoglycemic drugs; Z79.899 Other long term (current) drug therapy; Z91.048 Other nonmedicinal substance allergy status
CPT/HCPCS: 0202U; 36415; 51702; 71045; 71250; 71275; 78452; 80048; 80053; 80076; 81001; 82570; 82948; 83605; 83880; 83935; 84145; 84300; 84484; 85025; 85378; 87040; 87070; 87086; 87150; 87186; 87804; 87811; 93005; 93017; 93306; 93356; 94640; 94761; 96365; 96366; 96367; 96372; 96375; 96376; 97110; 97161; 97165; 97530; 99285; A9500; J0456; J2785; Q9967

== ENCOUNTER 2023-06-28 19:11 | Inpatient (IN) | payer MEDICARE, OTHER, SELFPAY ==
[2023-06-28 19:43] VITALS: BP 123/67; PULSE 79; RESP 18; TEMP 36.6; O2SAT 96; BMI 27.4
--- OUTSIDE RECORDS SUMMARY | 2023-06-28 19:51 | XMS_ITS | CCD ---
Author Organization [facility] Care Team Providers Care Safety Counselor Name Role Phone Pipe Sanchez Attending Provider Kilo Chavez Primary Care Provider Kilo Chavez II Primary Care Provider [phone] Kilo Chavez II Unavailable [phone] MARU Chavez Primary Care Provider [phone] MD Johann Dolan Attending Provider Unavailable Primary Care Provider Unavailabl e NO FAMILY, PHYSICIAN Primary Care Provider Unava MD Oz Rizvi Jr Emergency Provider BRENDA, CARY Referring Unavailable AHMED, IRFAN Referring Unavailable BRENDA, CARY Referring Unavailable BRENDA, CARY Referring Unavailable BRENDA, CARY Referring Unavailable BRENDA, CARY Referring Unavailable FOZIA TOBAR Primary Care Physician [phone] NO FAMILY, PHYSICIAN Primary Care Provider Unava MD Oz Rizvi Jr Emergency Provider MD Johann Dolan Attending Provider AICHHOLZ, RING FACER FOZIA Admitting Unavailable AICHHOLZ, RING FACER FOZIA Primary Care Unavailable AICHHOLZ, RING FACER FOZIA Attending Unavailable AICHHOLZ, RING FACER FOZIA Consulting Unavailable AICHHOLZ, RING FACER FOZIA Admitting Unavailable AICHHOLZ, RING FACER FOZIA Attending Unavailable AICHHOLZ, RING FACER FOZIA Consulting Unavailable AICHHOLZ, RING FACER FOZIA Primary Care Unavailable AICHHOLZ, RING FACER FOZIA Primary Care Unavailable SHAIKH Kurt PRICE Attending Unavailable SHAIKH Kurt PRICE Admitting Unavailable DR CECILY FRASER Consulting Unavailable ESTEBAN, DR LORETTA Dillard Consulting Unavailable LIBIA JACOB Consulting Unavailable LENA MARTINEZ Consulting Unavailable SHAIKH Kurt PIRCE Consulting Unavailable JOHANN PARKS Consulting Unavailable DR KILO CHAVEZ Primary Care Unavailable DR KILO CHAVEZ Consulting Unavailable DR KILO CHAVEZ Attending Unavailable DR KILO CHAVEZ Admitting Unavailable DR ERIC BERRY Unavailable AICHHOLZ, RING FACER FOZIA Admitting Unavailable AICHHOLZ, RING FACER FOZIA Attending Unavailable AICHHOLZ, RING FACER FOZIA Consulting Unavailable AICHHOLZ, RING FACER FOZIA Primary Care Unavailable AICHHOLZ, RING FACER FOZIA Primary Care Unavailable AICHHOLZ, RING FACER FOZIA Attending Unavailable AICHHOLZ, RING FACER FOZIA Consulting Unavailable AICHHOLZ, RING FACER FOZIA Admitting Unavailable DR ERIC BERRY Consulting Unavailable AICHHOLZ, RING FACER FOZIA Primary Care Unavailable AICHHOLZ, RING FACER FOZIA Consulting Unavailable AICHHOLZ, RING FACER FOZIA Attending Unavailable AICHHOLZ, RING FACER FOZAI Admitting Unavailable AICHHOLZ, RING FACER FOZIA Admitting Unavailable AICHHOLZ, RING FACER FOZIA Attending Unavailable AICHHOLZ, RING FACER FOZIA Referring Unavailable AICHHOLZ, RING FACER FOZIA Consulting Unavailable AICHHOLZ, RING FACER FOZIA Primary Care Unavailable DR ERIC BERRY Consulting Unavailable AICHHOLZ, RING FACER FOZIA Primary Care Unavailable AICHHOLZ, RING FACER FOZIA Consulting Unavailable AICHHOLZ, RING FACER FOZIA Attending Unavailable AICHHOLZ, RING FACER FOZIA Admitting Unavailable AICHHOLZ, RING FACER FOZIA Primary Care Unavailable AICHHOLZ, RING FACER FOZIA Consulting Unavailable AICHHOLZ, RING FACER FOZIA Attending Unavailable AICHHOLZ, RING FACER FOZIA Admitting Unavailable AICHHOLZ, RING FACER FOZIA Primary Care Unavailable ADDY MEHTA Attending Unavailable DR JOHANN DOLAN Consulting Unavailable ADDY MEHTA Admitting Unavailable AICHHOLZ, RING FACER FOZIA Primary Care Unavailable AICHHOLZ, RING FACER FOZIA Consulting Unavailable AICHHOLZ, RING FACER FOZIA Attending Unavailable AICHHOLZ, RING FACER FOZIA Admitting Unavailable AICHHOLZ, RING FACER FOZIA Primary Care Unavailable AICHHOLZ, RING FACER FOZIA Consulting Unavailable AICHHOLZ, RING FACER FOZIA Attending Unavailable AICHHOLZ, RING FACER FOZIA Admitting Unavailable AICHHOLZ, RING FACER FOZIA Primary Care Unavailable AICHHOLZ, RING FACER FOZIA Consulting Unavailable AICHHOLZ, RING FACER FOZIA Attending Unavailable AICHHOLZ, RING FACER FOZIA Admitting Unavailable DR ERIC BERRY Consulting Unavailable AICHHOLZ, RING FACER FOZIA Primary Care Unavailable AICHHOLZ, RING FACER FOZIA Consulting Unavailable AICHHOLZ, RING FACER FOZIA Attending Unavailable AICHHOLZ, RING FACER FOZIA Admitting Unavailable AICHHOLZ, RING FACER FOZIA Primary Care Unavailable AICHHOLZ, RING FACER FOZIA Attending Unavailable AICHHOLZ, RING FACER FOZIA Consulting Unavailable AICHHOLZ, RING FACER FOZIA Admitting Unavailable NO FAMILY, PHYSICIAN Primary Care Provider Unava ilable MD Pipe Sanchez Attending Provider [facility] Fozia [facility] Primary Care Provider [phone] Johann Dolan Admitting Unavailable NO FAMILY, PHYSICIAN Primary Care Unavailable Johann Dolan Attending Unavailable Johann Dolan Attending Unavailable Johann Dolan Admitting Unavailable Kilo Chavez Primary Care Unavailable Oz Beckford Jr Admitting Unavailable NO FAMILY, PHYSICIAN Primary Care Unavailable Oz Beckford Jr Attending Unavailable Pipe Sanchez Attending Unavailabl e Pipe Sanchez Admitting Unavailabl e Aichholz, Fozia J Primary Care Unavailable LANDY, SEBASTIÁN E Attending Unavailable Lue, Ivana M. Attending Unavailable LANDY, SEBASTIÁN E Attending Unavailable Lue, Ivana M. Attending Unavailable Jose Manuel SWAIN Attending Unavailable LANDY, SEBASTIÁN E Attending Unavailable Lue, Ivana M. Attending Unavailable LANDY, SEBASTIÁN E Attending Unavailable LANDY, SEBASTIÁN E Attending Unavailable Lue, Ivana M. Attending Unavailable Lue, Ivana M. Attending Unavailable Lue, Ivana M. Attending Unavailable Lue, Ivana M. Attending Unavailable Lue, Ivana M. Referring Unavailable Lue, Ivana M. Admitting Unavailable Lue, Ivana M. Attending Unavailable Lue, Ivana M. Referring Unavailable Lue, Ivana M. Admitting Unavailable Lue, Ivana M. Attending Unavailable LANDY, SEBASTIÁN E Attending Unavailable LANDY, SEBASTIÁN E Attending Unavailable LANDY, SEBASTIÁN E Attending Unavailable LANDY, SEBASTIÁN E Attending Unavailable LANDY, SEBASTIÁN E Attending Unavailable LANDY, SEBASTIÁN E Attending Unavailable Lue, Ivana M. Attending Unavailable Lue, Ivana M. Attending Unavailable AICHHOLZ, FOZIA Attending Unavailable JEFF MEDELLIN Attending Unavailable AICHHOLZ, FOZIA Attending Unavailable Allergies Allergy Classification Reported Allergen(s) Allergy Type Date of Onset Reaction(s) Facility (1 source) Adhesive agent Drug Allergy 9 Rash [facility] (13 sources) Aspirin; 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: [aspirin] Drug Allergy 9 GI Upset, Gastritis (disorder) [facility] (1 source) Penicillins Drug Allergy 9 Rash [facility] (12 sources) Adhesive Tape; 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: [Tape] Drug allergy Blister - unit of product usage (qualifier value) [facility] (12 sources) Penicillin; 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: [penicillin] Drug Allergy Cutaneous eruption (morphologic abnormality) [facility] (1 source) No Known Medication Allergies; 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: [No Known Medication Allergies] Propensity to adverse reactions (disorder) [facility] Repository NEGATED: Highlighted row has been ruled out! (1 source) Drug allergy [facility] NEGATED: Highlighted row has been ruled out! (1 source) Drug allergy [facility] NEGATED: Highlighted row has been ruled out! (1 source) Drug allergy [facility] NEGATED: Highlighted row has been ruled out! (1 source) Drug allergy [facility] NEGATED: Highlighted row has been ruled out! (1 source) Drug allergy [facility] NEGATED: Highlighted row has been ruled out! (1 source) Drug allergy [facility] NEGATED: Highlighted row has been ruled out! (1 source) Drug allergy [facility] NEGATED: Highlighted row has been ruled out! (1 source) Drug allergy [facility] NEGATED: Highlighted row has been ruled out! (1 source) Drug allergy [facility] NEGATED: Highlighted row has been ruled out! (1 source) Drug allergy [facility] NEGATED: Highlighted row has been ruled out! (1 source) Drug allergy [facility] Medications Current Medications Medication Drug Class(es) Dates [...] exchange, # 6 tab(s), Refills(s) 0, Pharmacy: [facility], 165, cm, 08/07/22 11:07:00 EDT, Height/Length [...] Start: 07-01-2022 take 1 capsule by mo [facility] twice daily as needed for [...] discomfort, # 90 tab(s), Refills(s) 3, Pharmacy: [facility] #[facility], 165, cm, 11/25/22 9:01:00 EDT, Height/Length [...] 125mg, # 30 tab(s), Refills(s) 0, Pharmacy: [facility] Start Date: 02/06/19 Status: Ordered Start: [...] bedtime, # 180 tab(s), Refills(s) 1, Pharmacy: [facility] [...] 08-04-2018 Chronic Other aftercare (3 sources) [facility] [place] [facility] [place]; 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: [Other [place] [facility] [place] drug therapy] Onset: 06-10-2022 Episodic Other bone disease and musculoskeletal deformities (11 sources) Osteopenia 10-11-2018 Episodic Other [employer] infection and poliomyelitis (13 sources) Late effects [...] Onset: 05-05-2022 Episodic Other aftercare (1 source) [facility] (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; 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: [MEDICATION TECH USE ORAL HYPOGLYCEMIC DX] Onset: 01-21-2022 Episodic Other aftercare (1 source) prison (current) use of anticoagulants; 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: [MEDICATION TECH CURRNT USE ANTICOAGULANTS] Onset: 01-21-2022 Episodic Other [...] Clinical Noteon Retail - Clinical Note [id number]#1.00TIFF [facility] Ambulatory Visit Summaryon 0 05-11-2023 Ambulatory [...] 1:00 PM EST Where: [facility] Retail - Clinical Noteon Retail - Clinical Note [id number]#1.00TIFF [facility] Ambulatory Visit Summaryon 1 05-17-2022 Ambulatory [...] 1:00 PM EST Where: [facility] Retail - Clinical Noteon Retail - Clinical Note [id number]#1.00TIFF [facility] Ambulatory Visit Summaryon 1 Ambulatory Visit [...] 1:00 PM EST Where: [facility] Patient Educationon 11-26-19 Patient Education Obstetrics and [...] these instructions at home: Medicines ? Take [id number] and prescription medicines only as told by [...] provider. Document Revised: 11/01/2020 Document Reviewed: 11/01/2020 [employer] Patient Education ? 2022 [employer] Lori [facility] Urology Office/Clinic Noteon 11-25-2022 Urology Office/Clinic [...] residual neurologic deficits Suspected per cysto at [facility] in 2019 for gross hematuria. 3+ [...] urine, unspecified) Pt had Ribeiro placed at [facility] on 06/02/22. Cath placed on 07/01/22 PVR > 600cc after failed voiding trial Pt had Ribeiro changed on 06/11/2022 at [facility]. Pt has a tremor and [...] performing a me (more content not included)... [facility] Comment on above: Result Comment: Elec tronically Signed By: David WELLS, Ivana Kirby\.br\Date and Time Signed: 11/25/22 18:15 EDT\.br\Electronically Co-Signed By: Mary Moore\.br\Date and Time Co-Signed: 11/25/22 10:06 EDT IntraOperative Documentson 0 11-09-2022 IntraOperative Documents [id number]#1.00CD:127 [facility] IntraOperative Documentson 0 10-27-2022 IntraOperative Documents [id number]#1.00CD:127 [facility] Consent for Procedure/Surger yon 10-26-2022 Consent for Procedure/Surgery [id number]#1.00CD:127 [facility] Consent for Treatmenton 10-04 Consent for Treatment [id number]#1.00CD:127 [facility] IntraOperative Documentson 0 10-26-2022 IntraOperative Documents [id number]#1.00CD:127 [facility] Coding Queryon 10-21-2022 Coding Query - From: Nori Roger To: David WELLS, Ivana Kirby; Sent: 10/20/2022 15:33:34 EDT ! Subject: Coding [...] dx, unable to modify existing computer order [facility] Physician Orderon 10-21-2022 Physician Order [id number]#1.00CD:127 [facility] C Urineon 10-14-2022 Bacteria identified Cx [...] Locations R1: This test was performed at: [facility], [address] [place] [address], [phone] , , [facility] Comment on above: Performed By: #### 2 [id number] ####[address] [place] [address] Consent for Treatmenton 10-03 Consent for Treatment [id number]#1.00CD:127 Normal [facility] Ambulatory Visit Summaryon 0 09-30-2022 Ambulatory [...] Mouth Once Once a month, morning of ribeior exchange Unchanged cranberry Unchanged docusate (docusate sodium [...] cholesterol HTN - Hypertension Kidney stone Normal [facility] Glucose Glucometer (BldC) [M ass/Vol]Ordered By: Pipe Sanchez on 09-25-2022 Glucose [Mass/Vol] 169 mg/dL [facility] Comment on above: Random Glucose Refer ence Range is dependent on time and content of last meal. Glucose of more than 200 mg/dL in a nonstressed, ambulatory subject supports the diagnosis of Diabetes Mellitus. Glucose Poct Glucometerson 0 09-25-2022 Commemt1 Glu2: Cleaned Meter Normal [facility] Comment on above: Result Comment: PERF ORMED BY: [place] [address] PATHOLOGIST RESAWYER LILLY LOTT M.D. Performed By: #### C K, CRP, CMP, CBC, ESR, TSH3 #### [address] #### ALDOLASE #### [facility] , Glucose [Mass/Vol] 169 mg/dL Normal [facility] Comment on above: Result Comment: [facility] Glucose Reference Range is dependent on time and content of last meal. Glucose of more than 200 mg/dL in a nonstressed, ambulatory subject supports the diagnosis of Diabetes Mellitus. Performed By: #### C K, CRP, CMP, CBC, ESR, TSH3 #### [facility] [address] #### ALDOLASE #### [facility] , Alcides 09-25-2022 L ------- Specimen: [id number] Received: 09/25/22 Status: KATJA Andrew Num: [id number] Spec Type: Surgical Subm Dr: Pipe Sanchez MD Tissues: A Duodenum - Biopsy (DUODENAL BX) Procedures: HE/2, Gross/Micro L4 Age/ Patient Sex Location Account Attending Physician Jamari Elizalde 82/F [id number] Pipe Sanchez MD SPEC NUM: [id number] RECD: 09/25/22 STATUS: KATJA ANDREW NUM: [id number] JOSE RAUL: 09/25/[address] [facility] [address]: Pipe Sanchez MD ENTERED: 09/25/[address]: PETE TYPE: Surgical DEPT: S ORDERED: [...] microscopic examination confirms the diagnosis. CPT Codes 04310 Specimen: [id number] Received: 09/25/22 Status: KATJA Andrew Num: [id number] Spec Type: Surgical Subm Dr: Pipe Sanchez MD Tissues: A Duodenum - Biopsy (DUODENAL BX) Procedures: HE/2, Gross/Micro L4 Patient: Jamari Elizalde [id number] (Continued) Signed (signature on file) Adore Kenyon MD 09/28/22 1057 Normal [facility] No Panel InformationOrdered By: Pipe Sanchez on 09-25-2022 Bedside Glucose Comment Glu2: cleaned meter [facility] CBC AUTO DIFFon 09-01-2022 BASO # 0.0 103/ul Normal 0.0-0.1 [facility] Comment on above: Performed By: #### L IPID, BMP, NA #### [facility] [address] [address] [address] Dilip Cartagena Basophils/100 WBC (Bld) 0.6 % Normal 0.2-2.0 [facility] Comment on above: Performed By: #### L IPID, BMP, NA #### [facility] [address] [address] [address] Dilip Cartagena EO # 0.3 103/ul Normal 0.0-0.7 [facility] Comment on above: Performed By: #### L IPID, BMP, NA #### [facility] [address] [place] [address] Dr. Dilip Cartagena Eosinophils/100 WBC (Bld) 3.9 % Normal 0.9-7.0 [facility] Comment on above: Performed By: #### L IPID, BMP, NA #### [facility] [address] [place] [address] Dr. Dilip Cartagena Erythrocyte distribution width (RBC) [Ratio] 14.1 % Normal 11.0-15.0 [facility] Comment on above: Performed By: #### L IPID, BMP, NA #### [facility] [address] [place] [address] Dr. Dilip Cartagena Hematocrit (Bld) [Volume fraction] 40.2 % Normal 36.0-48.0 [facility] Comment on above: Performed By: #### L IPID, BMP, NA #### [facility] [address] [place] [address] Dr. Dilip Cartagena Hemoglobin (Bld) [Mass/Vol] 13.5 g/dL Normal 12.0-16.0 [facility] Comment on above: Performed By: #### L IPID, BMP, NA #### [facility] [address] [place] [address] Dr. Dilip Cartagena IG # 0.03 10e3/ul Normal 0.00-0.03 [facility] Comment on above: Performed By: #### L IPID, BMP, NA #### [facility] [address] [place] [address] Dr. Dilip Cartagena IG % 0.4 % Normal 0.0-0.5 [facility] Comment on above: Performed By: #### L IPID, BMP, NA #### [facility] [address] [place] [address] Dr. Dilip Cartagena LYMPH # 2.4 103/ul Normal 1.2-3.8 [facility] Comment on above: Performed By: #### L IPID, BMP, NA #### [facility] [address] [place] [address] Dr. Dilip Cartagena Lymphocytes/100 WBC (Bld) 33.0 % Normal 20.5-60.0 [facility] Comment on above: Performed By: #### L IPID, BMP, NA #### [facility] [address] [place] [address] Dr. Dilip Cartagena MANUAL DIFF REQ NO Normal [facility] Comment on above: Performed By: #### L IPID, BMP, NA #### [facility] [address] [place] [address] Dr. Dilip Cartagena MCH (RBC) [Entitic mass] 31.1 pg Normal 26.7-34.0 [facility] Comment on above: Performed By: #### L IPID, BMP, NA #### [facility] [address] [place] [address] Dr. Dilip Cartagena MCHC (RBC) [Mass/Vol] 33.6 g/dL Normal 29.9-35.2 [facility] Comment on above: Performed By: #### L IPID, BMP, NA #### [facility] [address] [place] [address] Dr. Dilip Cartagena MCV (RBC) [Entitic vol] 92.6 fL Normal 81.0-99.0 [facility] Comment on above: Performed By: #### L IPID, BMP, NA #### [facility] [address] [place] [address] Dr. Dilip Cartagena MONO # 0.5 103/ul Normal 0.3-0.8 [facility] Comment on above: Performed By: #### L IPID, BMP, NA #### [facility] [address] [place] [address] Dr. Dilip Cartagena Monocytes/100 WBC (Bld) 6.9 % Normal 1.7-12.0 [facility] Comment on above: Performed By: #### L IPID, BMP, NA #### [facility] [address] [place] [address] Dr. Dilip Cartagena NEUT # 4.0 103/ul Normal 1.4-6.5 [facility] Comment on above: Performed By: #### L IPID, BMP, NA #### [facility] [address] [place] [address] Dr. Dilip Cartagena Neutrophils/100 WBC (Bld) 55.2 % Normal 43.0-75.0 [facility] Comment on above: Performed By: #### L IPID, BMP, NA #### [facility] [address] [place] [address] Dr. Dilip Cartagena Platelet mean volume (Bld) [Entitic vol] 7.9 fL Critically low 9.5-13.5 [facility] Comment on above: Performed By: #### L IPID, BMP, NA #### [facility] [address] [place] [address] Dr. Dilip Cartagena PLT 391 103/ul Normal 150-450 [facility] Comment on above: Performed By: #### L IPID, BMP, NA #### [facility] [address] [place] [address] Dr. Dilip Cartagena RBC 4.34 106/ul Normal 4.20-5.40 [facility] Comment on above: Performed By: #### L IPID, BMP, NA #### [facility] [address] [place] [address] Dr. Dilip Cartagena WBC 7.3 103/ul Normal 4.0-11.0 [facility] Comment on above: Performed By: #### L IPID, BMP, NA #### [facility] [address] [place] [address] Dr. Dilip Cartagena FREE T3on 09-01-2022 FREE T3 3.18 pg/mlL Normal 2.18-3.98 [facility] Comment on above: Performed By: #### U RCX #### [facility] [address] [place] [address] Dr. Dilip Cartagena FREE T4on 09-01-2022 Free T4 [Mass/Vol] 1.96 ng/dL Critically high 0.76-1.46 [facility] Comment on above: Performed By: #### P OCGLUC #### [facility] [address] [place] [address] Dr. Dilip Cartagena GLYCOHEMOGLOBIN A1Con 2022 ADA RECOMMENDATION SEE BELOW Normal [facility] Comment on above: Result Comment: ADA RECOMMENDED LIMIT 4.0 - 6.0 ADA THERAPEUTIC TARGET < 7.0 ACTION SUGGESTED > 7.0 Performed By: #### U RCX #### [facility] [address] [place] [address] Dr. Dilip Cartagena Glucose [Mass/Vol] 114 mg/dL Normal [facility] Comment on above: Performed By: #### U RCX #### [facility] [address] [place] [address] Dr. Dilip Cartagena HbA1c (Bld) [Mass fraction] 5.6 % Normal 4.5-6.2 [facility] Comment on above: Performed By: #### U RCX #### [facility] [address] [place] [address] Dr. Dilip Cartagena MAGNESIUMon 09-01-2022 Magnesium [Mass/Vol] 2.4 mg/dL Normal 1.8-2.4 [facility] Comment on above: Performed By: #### U RCX #### [facility] [address] [place] [address] Dr. Dilip Cartagena PROF 14(COMP METB)on 023 Albumin [Mass/Vol] 4.0 g/dL Normal 3.4-5.0 [facility] Comment on above: Performed By: #### U RCX #### [facility] [address] [place] [address] Dr. Dilip Cartagena Albumin/Globulin [Mass ratio] 1.1 {ratio} Normal [facility] Comment on above: Performed By: #### U RCX #### [facility] [address] [place] [address] Dr. Dilip Cartagena ALP [Catalytic activity/Vol] 87 U/L Normal 46-116 [facility] Comment on above: Performed By: #### U RCX #### [facility] [address] [place] [address] Dr. Dilip Cartagena ALT [Catalytic activity/Vol] 24 U/L Normal 14-59 [facility] Comment on above: Performed By: #### U RCX #### [facility] [address] [address] [address] Dilip Cartagena Anion gap [Moles/Vol] 13.2 mmol/L Normal Th e [facility] Comment on above: Performed By: #### U RCX #### [facility] [address] [address] [address] Dilip Cartagena AST [Catalytic activity/Vol] 9 U/L Critically low 15-37 [facility] Comment on above: Performed By: #### U RCX #### [facility] [address] [address] [address] Dilip Cartagena Bilirubin [Mass/Vol] 0.5 mg/dL Normal 0.2-1.0 [facility] Comment on above: Performed By: #### U RCX #### [facility] [address] [address] [address] Dilip Cartagena Calcium [Mass/Vol] 9.5 mg/dL Normal 8.5-10.1 [facility] Comment on above: Performed By: #### U RCX #### [facility] [address] [place] [address] Dr. Dilip Cartagena Chloride [Moles/Vol] 94 mmol/L Critically low 98-107 [facility] Comment on above: Performed By: #### U RCX #### [facility] [address] [address] [address] Dilip Cartagena CO2 [Moles/Vol] 26.5 mmol/L Normal 21.0-32.0 [facility] Comment on above: Performed By: #### U RCX #### [facility] [address] [address] [address] Dilip Cartagena Creatinine [Mass/Vol] 0.94 mg/dL Normal 0.55-1.02 [facility] Comment on above: Performed By: #### U RCX #### [facility] [address] [address] [address] Dilip Cartagena EGFR-AF FILIPINO >60 Normal >=60 [facility] Comment on above: Performed By: #### U RCX #### [facility] [address] [address] [address] Dilip Cartagena EGFR-NON AF FILIPINO 57 mL/min/1.73m2 Critically low >=60 [facility] Comment on above: Performed By: #### U RCX #### [facility] [address] [address] [address] Dilip Cartagena Globulin (S) [Mass/Vol] 3.7 g/dL Normal [facility] Comment on above: Performed By: #### U RCX #### [facility] [address] [address] [address] Dilip Cartagena Glucose [Mass/Vol] 140 mg/dL Critically high 74-106 T [facility] Comment on above: Performed By: #### U RCX #### [facility] [address] [address] [address] Dilip Cartagena Potassium [Moles/Vol] 4.7 mmol/L Normal 3.5-5.1 [facility] Comment on above: Performed By: #### U RCX #### [facility] [address] [address] [address] Dilip Catragena Protein [Mass/Vol] 7.7 g/dL Normal 6.4-8.2 [facility] Comment on above: Performed By: #### U RCX #### [facility] [address] [address] [address] Dilip Cartagena Sodium [Moles/Vol] 129 mmol/L Critically low 136-145 [facility] Comment on above: Performed By: #### U RCX #### [facility] [address] [address] [address] Dilip Cartagena Urea nitrogen [Mass/Vol] 16.0 mg/dL Normal 7.0-18.0 [facility] Comment on above: Performed By: #### U RCX #### [facility] [address] [address] [address] Dilip Cartagena Urea nitrogen/Creatinine [Mass ratio] 17.0 mg/mg Normal [facility] Comment on above: Performed By: #### U RCX #### [facility] [address] [address] [address] Dilip Cartagena TSHon 09-01-2022 TSH 1.087 uIU/mL Normal 0.358-3.74 0 [facility] Comment on above: Performed By: #### U RCX #### [facility] [id number] Dilip Cartagena Ambulatory Visit Summaryon 0 [...] cholesterol HTN - Hypertension Kidney stone Normal [facility] Nurse Consultation Noteon Nurse Consultation Note [...] in 1m w/PVR w/MARQUEZ or KML Normal [facility] Screenson 08-10-2022 Screens [id number]:127 Normal [facility] Patient Educationon 08-08-19 23 Patient Education [...] health care provider. General instructions ? Take qhju-tmm-ekjzztb and prescription medicines only as told by [...] urine. (more content not included)... Normal [facility] Urology Office/Clinic Noteon 08-07-2022 Urology Office/Clinic Note [...] such as MS. Suspected per cysto at [facility] in 2019 for gross hematuria. 3+ [...] urine, unspecified) Pt had Ribeiro placed at [facility] on 06/02/22. Cath placed on 07/01/22 PVR > 600cc after failed voiding trial Pt had Ribeiro changed on 06/11/2022 at [facility]. Pt has a tremor and [...] bowel regimen Follow-up With When Contact Information Ivana Hernandez MD, URL, URO Additional Instructions: Voiding trial around [...] Oral, Once (more content not included)... Normal [facility] Comment on above: Result Comment: Elec tronically Signed By: Ivana Hernandez MD\.br\Date and Time Signed: 08/07/22 13:46 EDT\.br\Electronically Co-Signed By: Lily Sood\.br\Date and Time Co-Signed: 08/07/22 11:45 EDT C reactive protein [Mass/vol ume] in Serum or PlasmaOrdered By: Johann Dolan on 07-30-2022 CRP [Mass/Vol] < 0.5 mg/dL 0.0-0.5 [facility] C-Reactive Proteinon 04-27-2 023 CRP [Mass/Vol] mg/L Normal 0.0-0.5 [facility] Comment on above: Result Comment: PERF ORMED BY: [place] [address] PATHOLOGIST RESAWYER LILLY LOTT M.D. Performed By: #### C K, CRP, CMP, CBC, ESR, TSH3 #### [facility] [address] [place] [address] #### ALDOLASE #### [facility] , Creatine Kinaseon 07-30-2022 CK [Catalytic activity/Vol] 344 U/L High [facility] Comment on above: Result Comment: PERF ORMED BY: [place] [address] PATHOLOGIST RESAWYER LILLY LOTT M.D. Performed By: #### S VICENTA COVID-19 KATELYN #### [address] Creatine kinase [Enzymatic a ctivity/volume] in Serum or PlasmaOrdered By: Johann Dolan on 07-30-2022 CK [Catalytic activity/Vol] 344 U/L [facility] Erythrocyte Sedimentation Ra yvonne 07-30-2022 ESR (Bld) [Velocity] 13 mm/h Normal 0-29 [facility] Comment on above: Result Comment: PERF ORMED BY: [place] [address] PATHOLOGIST RESAWYER LILLY LOTT M.D. Performed By: #### S VICENTA COVID-19 KATELYN #### [facility] [address] [place] [address] Erythrocyte sedimentation ra te by Photometric methodOrdered By: Johann Dolan on 07-30-2022 ESR Photometric method (Bld) [Velocity] 13 mm/hr 0-29 [facility] Ionized Calciumon 07-30-2022 Ionized Calcium 4.9 mg/dL Normal 4.5-5.6 [facility] Comment on above: Result Comment: Perf ormed at: [facility] - [address] [id number] Slide Maker: Reggie Lazcano PhD, Phone: [phone] PERFORMED BY: [place] [address] PATHOLOGIST RESAWYER LILLY LOTT M.D. Performed By: #### C K, CRP, CMP, CBC, ESR, TSH3 #### [facility] [address] [place] [address] #### ALDOLASE #### [facility] , Parathyrin.intact [Mass/volu me] in Serum or PlasmaOrdered By: Johann Dolan on 07-30-2022 Parathyrin.intact [Mass/Vol] 34.7 pg/mL [facility] Parathyroid Hormone Intacton 07-30-2022 Parathyroid Hormone Intact 34.7 pg/mL Normal [facility] Comment on above: Result Comment: PERF ORMED BY: [place] [address] PATHOLOGIST RESAWYER LILLY LOTT M.D. Performed By: #### S DEONNA YADAV-Sina KATELYN #### [address] Parathyroid Hormone Related Pron 07-30-2022 Parathyroid Hormone Related Pr <2.0 Normal . [facility] Comment on above: Result Comment: This [...] discordant, please contact the laboratory. Performed at: [facility] [employer] [facility] [employer] [address] [place] [id number] Slide Maker: Pawel Fong MD, Phone: [phone] Performed By: #### C K, CRP, CMP, CBC, ESR, TSH3 #### [facility] [address] #### ALDOLASE #### [facility] , Serum ionized calcium measur ement using ion specific electrode (mass/volume)Ordered By: Johann Dolan on 07-30-2022 Calcium.ionized ISE [Mass/Vol] 4.9 mg/dL 4.5-5.6 [facility] Comment on above: Performed at: [facility] [address] [id number] Director: Reggie Lazcano PhD, Phone: [phone] Serum or plasma parathyroid hormone related peptide (PTHrP) measurement (moles/volumeOrdered By: Johann Dolan on 07-30-2022 Parathyrin related protein [Moles/Vol] <2.0 pmol/L . [facility] Comment on above: This test was [...] contact the laboratory.Performed at: [id number] [place], [place] [id number] Director: Pawel Fong MD, Phone: [phone] Lab Reportson 07-29-2022 Lab Reports [id number]:127 Normal [facility] CULTURE URINEon 07-28-2022 CULTURE URINE Isolate [...] F Levofloxacin 0.25 S F Normal [facility] Comment on above: Performed By: #### U RCX #### [facility] [address] [place] [address] Dr. Dilip Cartagena UA RANDOM W/MICROSCOPICon BACTERIA LARGE Abnormal NONE SEEN [facility] Comment on above: Performed By: #### U RCX #### [facility] [address] [place] [address] Dr. Dilip Cartagena Bilirubin Ql (U) Negative Normal NEGATIVE [facility] Comment on above: Performed By: #### U RCX #### [facility] [address] [place] [address] Dr. Dilip Cartagena CA OX CRYSTALS FEW Normal [facility] Comment on above: Performed By: #### U RCX #### [facility] [address] [place] [address] Dr. Dilip Cartagena CAST NONE SEEN Normal NONE [facility] Comment on above: Performed By: #### U RCX #### [facility] [address] [place] [address] Dr. Dilip Cartagena Clarity (U) CLEAR Normal CLEAR [facility] Comment on above: Performed By: #### U RCX #### [facility] [address] [place] [address] Dr. Dilip Cartagena Color (U) LT. YELLOW Normal YELLOW [facility] Comment on above: Performed By: #### U RCX #### [facility] [address] [place] [address] Dr. Dilip Cartagena Crystals LM Nom (Urine sed) SEEN Abnormal NONE [facility] Comment on above: Performed By: #### U RCX #### [facility] [address] [place] [address] Dr. Dilip Cartagena Epithelial cells LM Ql (Urine sed) FEW Abnormal NONE SEEN /RARE [facility] Comment on above: Performed By: #### U RCX #### [facility] [address] [address] [address] Dilip Cartagena Glucose Ql (U) Negative Normal NEGATIVE [facility] Comment on above: Performed By: #### U RCX #### [facility] [address] [place] [address] Dr. Dilip Cartagena Hemoglobin Ql (U) SMALL Abnormal NEGATIVE [facility] Comment on above: Performed By: #### U RCX #### [facility] [address] [place] [address] Dr. Dilip Cartagena Ketones Ql (U) Negative Normal NEGATIVE [facility] Comment on above: Performed By: #### U RCX #### [facility] [address] [place] [address] Dr. Dilip Cartagena LEUKOCYTES LARGE Abnormal NEGATIVE [facility] Comment on above: Performed By: #### U RCX #### [facility] [address] [place] [address] Dr. Dilip Cartagena MUCOUS NONE SEEN Normal NONE SEEN [facility] Comment on above: Performed By: #### U RCX #### [facility] [address] [place] [address] Dr. Dilip Cartagena Nitrite Ql (U) Positive Abnormal NEGATIVE [facility] Comment on above: Performed By: #### U RCX #### [facility] [address] [place] [address] Dr. Dilip Cartagena pH (U) 5.5 [pH] Normal 5-9 [facility] Comment on above: Performed By: #### U RCX #### [facility] [address] [place] [address] Dr. Dilip Cartagena RBC 0-2 Normal 0-2 [facility] Comment on above: Performed By: #### U RCX #### [facility] [address] [place] [address] Dr. Dilip Cartagena SPEC GRAVITY 1.020 Normal 1.005-<=1. 025 [facility] Comment on above: Performed By: #### U RCX #### [facility] [address] [address] [address] Dilip Cartagena UA PROTEIN 30 mg/dl Abnormal NEGATIVE/ TRACE [facility] Comment on above: Performed By: #### U RCX #### [facility] [address] [address] [address] Dilip Cartagena Urobilinogen Qn (U) 0.2 {Hallie'U}/dL Normal 0.2 - 1. 0 [facility] Comment on above: Performed By: #### U RCX #### [facility] [address] [place] [address] Dr. Dilip Cartagena WBC 20-50 Abnormal NONE SEEN [facility] Comment on above: Performed By: #### U RCX #### [facility] [address] [place] [address] Dr. Dilip Cartagena Ambulatory Visit Summaryon 0 [...] Barrera, URO When: Where: [address] [place] [phone] Medications What How Much When Why Instructions [...] This condit (more content not included)... Normal [facility] Patient Educationon 07-16-19 23 Patient Education Urology Neurogenic Bladder Neurogenic [...] health care provider. General instructions ? Take ugez-obv-hneqgwo and prescription medicines only as told by [...] Chills. ? (more content not included)... Normal [facility] Urology Office/Clinic Noteon 07-15-2022 Urology Office/Clinic Note Chief Complaint 2 week follow up HPI Staff Pt currently has a cath was replaced at last visit on 07/01/22. 2wk PVR following ribeiro removal on 07/01/22. Catheter inserted 06/02/22 @ [facility] due to [...] voiding trial Pt had Ribeiro placed at [facility] on 06/02/2022 Pt had Ribeiro changed on 06/11/2022 at [facility] Pt has a tremor and [...] on CT Scan done on 06/02/2022 at [facility] Pt states that she has known about it for years, states it is stable. Declined metabolic workup at this time 4. UTI (urinary tract infection) (N39.0: Urinary tract infection, site not specified) UTI (asymptomatic) 05/05/2022-[facility] 06/07/20[facility] - ribeiro exchange Discussed risks of recurrence given incomplete emptying, denies complicated UTIs Follow-up With When Contact Information David WELLS, Ivana Kirby, URL, URO [address] [place] [phone] Additional Instructions: Pt will f/u in 1 [...] Oral, BID aspirin (more content not included)... Normal [facility] Comment on above: Result Comment: Elec tronically Signed By: Ivana Hernandez MD\.br\Date and Time Signed: 07/15/22 14:00 EDT\.br\Electronically Co-Signed By: Lucretia Fuchs MA\.br\Date and Time Co-Signed: 07/15/22 11:49 EDT\.br\Electronically Co-Signed By: Lucretia Fuchs MA\.br\Date and Time Co-Signed: 07/15/22 11:50 EDT Ambulatory Visit Summaryon 0 07-01-2022 Ambulatory Visit [...] Wednesday 1:00 PM EDT Where: [facility] Ambulatory Visit Summary JAMARI ELIZALDE [...] Wednesday 1:00 PM EDT Where: [facility] Patient Educationon 07-02-19 23 Patient Education Urology Neurogenic Bladder Neurogenic [...] health care provider. General instructions ? Take [id number] and prescription medicines only as told by [...] Chills. ? (more content not included)... Normal [facility] Screenson 07-01-2022 Screens [id number]:[id number] Normal [facility] PTH INTACTon 06-20-2022 PTH, Intact 28 pg/mL Normal 15-65 [facility] Comment on above: Performed By: #### L IPID, BMP, NA #### [facility] [address] [address] [address] Dilip Cartagena GGTon 06-19-2022 Gamma glutamyl transferase [Catalytic activity/Vol] 22 U/L Normal 8-55 [facility] Comment on above: Performed By: #### U RCX #### [facility] [address] [place] [address] Dr. Dilip Cartagena LIPID PROFILEon 06-19-2022 CHOL-HDL RATIO NORM SEE BELOW Normal [facility] Comment on above: Result Comment: 3.3 - 4.4 LOW RISK 4.4 - 7.1 AVERAGE RISK 7.1 - 11.0 MODERATE RISK >11.0 HIGH RISK Performed By: #### L IPID, BMP, NA #### [facility] [address] [address] [address] Dilip Cartagena Cholesterol [Mass/Vol] 163 mg/dL Normal <=200 [facility] Comment on above: Performed By: #### L IPID, BMP, NA #### [facility] [address] [address] [address] Dilip Cartagena Cholesterol in HDL [Mass/Vol] 46 mg/dL Normal 40-60 [facility] Comment on above: Performed By: #### L IPID, BMP, NA #### [facility] [address] [address] [address] Dilip Cartagena Cholesterol in LDL [Mass/Vol] 101.6 mg/dL Normal [facility] Comment on above: Performed By: #### L IPID, BMP, NA #### [facility] [address] [place] [address] Dr. Dilip Cartagena Cholesterol.total/Chol esterol in HDL [Mass ratio] 3.5 {ratio} Normal [facility] Comment on above: Performed By: #### L IPID, BMP, NA #### [facility] [address] [place] [address] Dr. Dilip Cartagena HDL NORMAL > or = 60 mg/dl - LO W CARDIOVASCULAR RISK <40 mg/dl - HIGH CARDIOVASCULAR RISK Normal [facility] Comment on above: Performed By: #### L IPID, BMP, NA #### [facility] [address] [place] [address] Dr. Dilip Cartagena LDL CALC NORMAL SEE BELOW Normal [facility] Comment on above: Result Comment: <100 mg/dl OPTIMAL 100 - 129 mg/dl NEAR OR ABOVE OPTIMAL 130 - 159 mg/dl BORDERLINE HIGH 160 - 189 mg/dl HIGH >190 mg/dl VERY HIGH Performed By: #### L IPID, BMP, NA #### [facility] [address] [place] [address] Dr. Dilip Cartagena Triglyceride [Mass/Vol] 77 mg/dL Normal <=150 [facility] Comment on above: Performed By: #### L IPID, BMP, NA #### [facility] [address] [place] [address] Dr. Dilip Cartagena VLDL CALC 15.4 mg/dL Normal [facility] Comment on above: Performed By: #### L IPID, BMP, NA #### [facility] [address] [place] [address] Dr. Dilip Cartagena PROF CHEM 8 (BAS METB)on Anion gap [Moles/Vol] 17.9 mmol/L Normal [facility] Comment on above: Performed By: #### L IPID, BMP, NA #### [facility] [address] [place] [address] Dr. Dilip Cartagena Calcium [Mass/Vol] 9.0 mg/dL Normal 8.5-10.1 [facility] Comment on above: Performed By: #### L IPID, BMP, NA #### [facility] [address] [place] [address] Dr. Dilip Cartagena Performed By: #### U RCX #### [facility] [address] [address] [address] Dilip Cartagena Chloride [Moles/Vol] 98 mmol/L Normal 98-107 [facility] Comment on above: Performed By: #### L IPID, BMP, NA #### [facility] [address] [place] [address] Dr. Dilip Cartagena CO2 [Moles/Vol] 21.9 mmol/L Normal 21.0-32.0 [facility] Comment on above: Performed By: #### L IPID, BMP, NA #### [facility] [address] [place] [address] Dr. Dilip Cartagena Creatinine [Mass/Vol] 0.68 mg/dL Normal 0.55-1.02 [facility] Comment on above: Performed By: #### L IPID BMP, NA #### [facility] [address] [place] [address] Dr. Dilip Cartagena EGFR-AF FILIPINO >60 Normal >=60 [facility] Comment on above: Performed By: #### L IPID, BMP, NA #### [facility] [address] [place] [address] Dr. Dilip Cartagena EGFR-NON AF FILIPINO >60 Normal >=60 [facility] Comment on above: Performed By: #### L IPID BMP, NA #### [facility] [address] [place] [address] Dr. Dilip Cartagena Glucose [Mass/Vol] 114 mg/dL Critically high 74-106 [facility] Comment on above: Performed By: #### L IPID, BMP, NA #### [facility] [address] [place] [address] Dr. Dilip Cartagena Potassium [Moles/Vol] 4.8 mmol/L Normal 3.5-5.1 [facility] Comment on above: Performed By: #### L IPID, BMP, NA #### [facility] [address] [place] [address] Dr. Dilip Cartagena Sodium [Moles/Vol] 133 mmol/L Critically low 136-145 [facility] Comment on above: Performed By: #### L IPID, BMP, NA #### [facility] [address] [place], [place] [address] Dr. Dilip Cartagena Urea nitrogen [Mass/Vol] 17.0 mg/dL Normal 7.0-18.0 [facility] Comment on above: Performed By: #### L IPID, BMP, NA #### [facility] [address] [place], [place] [address] Dr. Dilip Cartagena Urea nitrogen/Creatinine [Mass ratio] 25.0 mg/mg Normal [facility] Comment on above: Performed By: #### L IPID, BMP, NA #### [facility] [address] [place], [place] [address] Dr. Dilip Cartagena NA (Sodium)on 06-15-2022 Sodium [Moles/Vol] 130 mmol/L Low 135-144 [facility] Comment on above: Performed By: #### N A #### [facility] [address] [place] [address] Slide Maker: Loretta Davis MD Sodiumon 06-15-2022 Interpretation and review of laboratory results Abnormal [facility] Sodium [Moles/Vol] 130 mmol/L Low 135 - 144 mmol/L [facility] NA (Sodium)on 06-12-2022 Sodium [Moles/Vol] 123 mmol/L Low 135-144 [facility] Comment on above: Performed By: #### N A #### [facility] [address] [place] [address] Slide Maker: Loretta Davis MD Sodiumon 06-12-2022 Interpretation and review of laboratory results Abnormal [facility] Sodium [Moles/Vol] 123 mmol/L Low 135 - 144 mmol/L [facility] Cult,Urineon 06-10-2022 Cult,Urine Specimen Description .CLEAN CATCH URINE Culture ENTEROCOCCUS FAECALIS >[id number] CFU/ML Report Status FINAL 06/10/2022 SUSCEPTIBILITY Organism ENTEROCOCCUS FAECALIS Method MARISOL Ampicillin <=2 SUSCEPTIBLE Ciprofloxacin 1 SUSCEPTIBLE Levofloxacin 1 SUSCEPTIBLE Nitrofurantoin <=16 SUSCEPTIBLE Tetracycline <=1 SUSCEPTIBLE Vancomycin 1 SUSCEPTIBLE Susceptible [facility] Comment on above: Performed By: #### U RC #### [facility] [address] [place], [place] [id number] Slide Maker: Lemuel Chan MD [facility] [address] [place] [address] Slide Maker: Loretta Davis MD Lipid Panelon 06-10-2022 Cholesterol [Mass/Vol] 190 mg/dL NINF - 200 mg/dL [facility] Comment on above: Cholesterol Guidelines: <200 Desirable 200-240 Borderline >240 Undesirable Cholesterol in HDL [Mass/Vol] 51 mg/dL 40 - PINF mg/dL [facility] Comment on above: HDL Guidelines: <40 Undesirable 40-59 Borderline >59 Desirable Cholesterol in LDL [Mass/Vol] 103 mg/dL 0 - 130 mg/dL [facility] Comment on above: LDL Guidelines: <100 Desirable 100-129 Near to/above Desirable 130-159 Borderline >159 Undesirable Direct (measured) LDL and calculated LDL are not interchangeable tests. Cholesterol.total/Chol esterol in HDL [Mass ratio] 3.7 {ratio} NINF - 5 [facility] Interpretation and review of laboratory results Abnormal [facility] Triglyceride [Mass/Vol] 179 mg/dL High NINF - 150 mg/dL [facility] Comment on above: Triglyceride Guidelines: <150 Desirable 150-199 Borderline 200-499 High >499 Very high Based on AHA Guidelines for fasting triglyceride, January 2012. [facility] Lipid Profileon 06-10-2022 Cholesterol [Mass/Vol] 190 mg/dL Normal <200 [facility] Comment on above: Result Comment: Cholesterol Guidelines: <200 Desirable 200-240 Borderline >240 Undesirable Performed By: #### T SH #### [facility] [address] [place] [address] Slide Maker: Loretta Davis MD #### LIPR #### [facility] [address] [place], [place] [id number] Slide Maker: Lemuel Chan MD Cholesterol in HDL [Mass/Vol] 51 mg/dL Normal >40 [facility] Comment on above: Result Comment: HDL Guidelines: <40 Undesirable 40-59 Borderline >59 Desirable Performed By: #### T SH #### [facility] [address] [place] [address] [address] [id number] Slide Maker: Loretta Davis MD #### LIPR #### [address] [id number] Slide Maker: Lemuel Chan MD Cholesterol in LDL [Mass/Vol] 103 mg/dL Normal 0-130 [facility] Comment on above: Result Comment: LDL Guidelines: <100 Desirable 100-129 Near to/above Desirable 130-159 Borderline >159 Undesirable Direct (measured) LDL and calculated LDL are not interchangeable tests. Performed By: #### T SH #### [facility] [address] [place] [address] Dr. [place] [phone] Slide Maker: Loretta Davis MD #### LIPR #### [address] [id number] Slide Maker: Lemuel Chan MD Cholesterol.total/Chol esterol in HDL [Mass ratio] 3.7 {ratio} Normal <5 [facility] Comment on above: Performed By: #### T SH #### [facility] [address] [place] [address] Dr. [place] [phone] Slide Maker: Loretta Davis MD #### LIPR #### [address] [address] Slide Maker: Lemuel Chan MD Triglyceride [Mass/Vol] 179 mg/dL High <150 [facility] Comment on above: Result Comment: Triglyceride Guidelines: <150 Desirable 150-199 Borderline 200-499 High >499 Very high Based on AHA Guidelines for fasting triglyceride, January 2012. Performed By: #### T SH #### [facility] [address] [place] [address] Dr. [place] [phone] Slide Maker: Loretta Davis MD #### LIPR #### [facility] [address] [place], [place] [phone] Slide Maker: Lemuel Chan MD TSHon 06-10-2022 TSH Qn 1.20 m[IU]/L [facility] Thyroid Stim. Horm.on 2022 Thyroid Stim. Horm. 1.20 uIU/mL Normal 0.30-5.00 [facility] Comment on above: Performed By: #### T SH #### [address] [place] [address] Slide Maker: Loretta Davis MD #### LIPR #### [place] [address] [place], [place] 1892808 Slide Maker: Lemuel Chan MD CBCon 06-09-2022 Erythrocyte distribution width (RBC) [Ratio] 13.1 % Normal 11.8-14.4 [facility] Comment on above: Performed By: #### C BC, CP #### [address] [place], [place] [phone] Slide Maker: Loretta Davis MD Hematocrit (Bld) [Volume fraction] 37.0 % Normal 36.3-47.1 [facility] Comment on above: Performed By: #### C BC, CP #### [address] [place] [address] Slide Maker: Loretta Davis MD Hemoglobin (Bld) [Mass/Vol] 12.6 g/dL Normal 11.9-15.1 [facility] Comment on above: Performed By: #### C BC, CP #### [address] [place] [address] Slide Maker: Loretta Davis MD MCH (RBC) [Entitic mass] 31.7 pg Normal 25.2-33.5 [facility] Comment on above: Performed By: #### C BC, CP #### [address] [place], [place] [phone] Slide Maker: Loretta Davis MD MCHC (RBC) [Mass/Vol] 34.1 g/dL Normal 28.4-34.8 [facility] Comment on above: Performed By: #### C BC, CP #### [address] [place], [place] [phone] Slide Maker: Loretta Davis MD MCV (RBC) [Entitic vol] 93.0 fL Normal 82.6-102.9 [facility] Comment on above: Performed By: #### C VU, CP #### [address] [place], [place] [phone] Slide Maker: Loretta Davis MD NRBC Automated 0.0 per 100 WBC Normal 0.0 [facility] Comment on above: Performed By: #### C VU, CP #### [address] [place], [place] [phone] Slide Maker: Loretta Davis MD Platelet mean volume (Bld) [Entitic vol] 8.4 fL Normal 8.1-13.5 [facility] Comment on above: Performed By: #### C VU, CP #### [address] [place], [place] [phone] Slide Maker: Loretta Davis MD Platelets (Bld) [#/Vol] 387 10*3/uL Normal 138-453 [facility] Comment on above: Performed By: #### C VU, CP #### [address] [place], [place] [phone] Slide Maker: Loretta Davis MD RBC (Bld) [#/Vol] 3.98 10*6/uL Normal 3.95-5.11 [facility] Comment on above: Performed By: #### C VU, CP #### [address] [place], [place] [phone] Slide Maker: Loretta Davis MD WBC (Bld) [#/Vol] 9.6 10*3/uL Normal 3.5-11.3 [facility] Comment on above: Performed By: #### C VU, CP #### [facility] [address] [place] [address] Slide Maker: Loretta Davis MD Hematocrit (Bld) [Volume fraction] 37.0 % 36.3 - 47.1 % [facility] Hemoglobin (Bld) [Mass/Vol] 12.6 g/dL 11.9 - 15.1 g/dL [facility] MCH (RBC) [Entitic mass] 31.7 pg 25.2 - 33.5 pg [facility] MCHC (RBC) [Mass/Vol] 34.1 g/dL 28.4 - 34.8 g/dL [facility] MCV (RBC) [Entitic vol] 93.0 fL 82.6 - 102.9 fL [facility] NRBC Automated 0.0 0.0 per 100 WBC [facility] Platelet distribution width (Bld) [Ratio] 13.1 % 11.8 - 14.4 % [facility] Platelet mean volume (Bld) [Entitic vol] 8.4 fL 8.1 - 13.5 fL [facility] Platelets (Bld) [#/Vol] 387 10*3/uL [facility] RBC (Bld) [#/Vol] 3.98 10*6/uL 3.95 - 5.11 m/uL [facility] WBC (Bld) [#/Vol] 9.6 10*3/uL [facility] Comp Metabolic Profon 2022 Albumin [Mass/Vol] 4.1 g/dL Normal 3.5-5.2 [facility] Comment on above: Performed By: #### C VU, CP #### [facility] [address] [place] [address] Slide Maker: Loretta Davis MD Albumin/Glob Ratio 1.6 Normal 1.0-2.5 [facility] Comment on above: Performed By: #### C BC, CP #### [facility] [address] [place], [place] [phone] Slide Maker: Loretta Davis MD Alkaline Phos 68 U/L Normal 35-104 [facility] Comment on above: Performed By: #### C BC, CP #### [facility] [address] [place], [place] [phone] Slide Maker: Loretta Davis MD ALT [Catalytic activity/Vol] 27 U/L Normal 5-33 [facility] Comment on above: Performed By: #### C BC, CP #### [facility] [address] [place], [place] 1479383 Slide Maker: Loretta Davis MD Anion gap [Moles/Vol] 13 mmol/L Normal 9-17 [facility] Comment on above: Performed By: #### C BC, CP #### [facility] [address] [place], [place] 9509783 Slide Maker: Loretta Davis MD AST [Catalytic activity/Vol] 19 U/L Normal <32 [facility] Comment on above: Performed By: #### C BC, CP #### [facility] [address] [place], [place] [phone] Slide Maker: Loretta Davis MD Bilirubin [Mass/Vol] 0.2 mg/dL Low 0.3-1.2 [facility] Comment on above: Performed By: #### C BC, CP #### [facility] [address] [place], [place] 6534583 Slide Maker: Loretta Davis MD BUN/CRE Ratio 31 High 9-20 [facility] Comment on above: Performed By: #### C BC, CP #### [facility] [address] [place], [place] [phone] Slide Maker: Loretta Davis MD Calcium [Mass/Vol] 9.6 mg/dL Normal 8.6-10.4 [facility] Comment on above: Performed By: #### C BC, CP #### [facility] [address] [place], [place] [phone] Slide Maker: Loretta Davis MD Chloride [Moles/Vol] 91 mmol/L Low 98-107 [facility] Comment on above: Performed By: #### C VU, CP #### [facility] [address] [place] [address] Slide Maker: Loretta Davis MD CO2 [Moles/Vol] 26 mmol/L Normal 20-31 [facility] Comment on above: Performed By: #### C VU, CP #### [facility] [address] [place] [address] Slide Maker: Loretta Davis MD Creatinine [Mass/Vol] 0.65 mg/dL Normal 0.50-0.90 [facility] Comment on above: Performed By: #### C VU, CP #### [facility] [address] [place] [address] [place] [address] Slide Maker: Loretta Davis MD GFR/1.73 sq M.predicted among non-blacks MDRD (S/P/Bld) [Vol rate/Area] mL/min/{1.73_m2} Normal >60 [facility] Comment on above: Result Comment: These [...] renal tubular secretion. Performed By: #### C VU, CP #### [facility] [address] [place] [address] Slide Maker: Loretta Davis MD Glucose [Mass/Vol] 125 mg/dL High 70-99 [facility] Comment on above: Performed By: #### C BC, CP #### [facility] [address] [place] [address] Slide Maker: Loretta Davis MD Potassium [Moles/Vol] 4.3 mmol/L Normal 3.7-5.3 [facility] Comment on above: Performed By: #### C BC, CP #### [facility] [address] [place] [address] Slide Maker: Loretta Davis MD Protein [Mass/Vol] 6.7 g/dL Normal 6.4-8.3 [facility] Comment on above: Performed By: #### C VU, CP #### [facility] [address] [place] [address] Slide Maker: Loretta Davis MD Sodium [Moles/Vol] 130 mmol/L Low 135-144 [facility] Comment on above: Performed By: #### C VU, CP #### [facility] [address] [place], [place] [phone] Slide Maker: Loretta Davis MD Urea nitrogen [Mass/Vol] 20 mg/dL Normal 8-23 [facility] Comment on above: Performed By: #### C VU, CP #### [facility] [address] [place] [address] Slide Maker: Loretta Davis MD Comprehensive Metabolic Pane [facility] 06-09-2022 Albumin [Mass/Vol] 4.1 g/dL 3.5 - 5.2 g/dL [facility] Albumin/Globulin [Mass ratio] 1.6 {ratio} 1.0 - 2.5 [facility] ALP [Catalytic activity/Vol] 68 U/L 35 - 104 U/L [facility] ALT [Catalytic activity/Vol] 27 U/L 5 - 33 U/L [facility] Anion gap [Moles/Vol] 13 mmol/L 9 - 17 mmol/L [facility] AST [Catalytic activity/Vol] 19 U/L NINF - 32 U/L [facility] Bilirubin [Mass/Vol] 0.2 mg/dL Low 0.3 - 1 .2 mg/dL [facility] Calcium [Mass/Vol] 9.6 mg/dL 8.6 - 10. 4 mg/dL [facility] Chloride [Moles/Vol] 91 mmol/L Low 98 - 10 7 mmol/L [facility] CO2 [Moles/Vol] 26 mmol/L 20 - 31 mmol/L [facility] Creatinine [Mass/Vol] 0.65 mg/dL 0.50 - 0.90 mg/dL [facility] GFR/1.73 sq M.predicted MDRD (S/P/Bld) [Vol rate/Area] - PINF [facility] Comment on above: These results are not [...] 125 mg/dL High 70 - 99 mg/dL [facility] Interpretation and review of laboratory results Abnormal [facility] Potassium [Moles/Vol] 4.3 mmol/L 3.7 - 5.3 mmol/L [facility] Protein [Mass/Vol] 6.7 g/dL 6.4 - 8.3 g/dL [facility] Sodium [Moles/Vol] 130 mmol/L Low 135 - 144 mmol/L [facility] Urea nitrogen [Mass/Vol] 20 mg/dL 8 - 23 mg/dL [facility] Urea nitrogen/Creatinine (Bld) [Mass ratio] 31 High 9 - 20 [facility] Microscopic Urinalysison Bacteria, UA 2+ Abnormal None [facility] Epithelial Cells UA 2 TO 5 [facility] Interpretation and review of laboratory results Abnormal [facility] Mucus, UA 1+ Abnormal None [facility] RBC clumps Auto (Urine sed) [#/Area] 10 TO 20 [facility] WBC, UA 10 TO 20 [facility] Urinalysison 06-07-2022 Bilirubin Urine Negative NEGATIVE [facility] Color, UA Yellow Yellow [facility] Glucose Auto test strip (U) [Mass/Vol] Negative NEGATIVE [facility] Interpretation and review of laboratory results Abnormal [facility] Ketones (U) [Mass/Vol] Negative NEGATIVE [facility] Leukocyte esterase Auto test strip Ql (U) SMALL Abnormal NEGATIVE [facility] Nitrite Auto test strip Ql (U) Negative NEGATIVE [facility] Protein (U) [Mass/Vol] 6.0 mg/dL 5.0 - 9.0 [facility] Protein (U) [Mass/Vol] 2+ Abnormal NEGATIVE [facility] Specific [place], UA 1.025 High 1.010 - 1.020 [facility] Turbidity UA Clear Clear [facility] Urine Hgb 2+ Abnormal NEGATIVE [facility] Urobilinogen, Urine Normal Normal [facility] Urinalysis, Routineon 2022 Bilirubin, SemiQt,Ur Negative Normal NEG [facility] Comment on above: Performed By: #### U MICAO, UA #### [facility] [address] [place] [address] Slide Maker: Loretta Davis MD Blood, Urine 2+ Abnormal NEG [facility] Comment on above: Performed By: #### U MICAO, UA #### [facility] [address] [place] [address] Slide Maker: Loretta Davis MD Clarity (U) Clear Normal CLEAR [facility] Comment on above: Performed By: #### U MICAO, UA #### [facility] [address] [place] [address] Slide Maker: Loretta Davis MD Color (U) Yellow Normal YEL [facility] Comment on above: Performed By: #### U MICAO, UA #### [facility] [address] [place], [place] [phone] Slide Maker: Loretta Davis MD Glucose Ql (U) Negative Normal NEG [facility] Comment on above: Performed By: #### U MICAO, UA #### [facility] [address] [place], [place] [phone] Slide Maker: Loretta Davis MD Ketones Ql (U) Negative Normal NEG [facility] Comment on above: Performed By: #### U MICAO, UA #### [facility] [address] [place], [place] [phone] Slide Maker: Loretta Davis MD Leukocyte esterase Test strip Ql (U) SMALL Abnormal NEG [facility] Comment on above: Performed By: #### U MICAO, UA #### [facility] [address] [place] [address] Slide Maker: Loretta Davis MD Nitrite,Ur Negative Normal [facility] Comment on above: Performed By: #### U MICAO, UA #### [facility] [address] [place], [place] 1581483 Slide Maker: Loretta Davis MD PH,Ur 6.0 Normal 5.0-9.0 [facility] Comment on above: Performed By: #### U MICAO, UA #### [facility] [address] [place], [place] 5373883 Slide Maker: Loretta aDvis MD Protein Ql (U) 2+ Abnormal NEG [facility] Comment on above: Performed By: #### U MICAO, UA #### [facility] [address] [place], [place] [phone] Slide Maker: Loretta Davis MD Spec. [place],Ur 1.025 High 1.010-1.02 0 [facility] Comment on above: Performed By: #### U MICAO, UA #### [facility] [address] [place] [address] Slide Maker: Loretta Davis MD Urobilinogen,Ur Normal Normal NORM [facility] Comment on above: Performed By: #### U MICAO, UA #### [facility] [address] [place], [place] [phone] Slide Maker: Loretta Davis MD Urinalysis,Microon 3 Bacteria 2+ Abnormal NONE [facility] Comment on above: Performed By: #### U MICAO, UA #### [facility] [address] [place], [place] [phone] Slide Maker: Loretta Davis MD Epithelial cells LM Ql (Urine sed) 2 TO 5 Normal 0-25 [facility] Comment on above: Performed By: #### U MICAO, UA #### [facility] [address] [place], [place] 2752483 Slide Maker: Loretta Davis MD Mucus Strands 1+ Abnormal NONE [facility] Comment on above: Performed By: #### U MICAO, UA #### [facility] [address] [place], [place] 4563983 Slide Maker: Loretta Davis MD Urine RBC's 10 TO 20 Normal 0-2 [facility] Comment on above: Performed By: #### U MICAO, UA #### [facility] [address] [place] [address] Slide Maker: Loretta Davis MD Urine WBC's 10 TO 20 Normal 0-5 [facility] Comment on above: Performed By: #### U MICAO, UA #### [facility] [address] [place] [address] Slide Maker: Loretta Davis MD COVID-19 Antigenon 3 COVID-19 [...] developed and its performance characteristic determined by [employer] and validated at [facility]. This test has not been FDA [...] for SARS Antigen by YANELY PERFORMED BY: [facility] [address] [place] [address] PATHOLOGIST RESAWYER LILLY LOTT M.D. [facility] Comment on above: Performed By: #### S VICENTA COVID-19 KATELYN #### [facility] [address] Katelyn Ag Negativeon 06-04-19 23 Katelyn Ag Negative Negative Normal Negative [facility] Comment on above: Result Comment: This is a duplicate Katelyn SARS Antigen (YANELY) result to be used for statistical tracking purpose only. PERFORMED BY: [place] [address] PATHOLOGIST RESAWYER LILLY LOTT M.D. Performed By: #### S VICENTA, COVID-19 KATELYN #### [address] Albumin [Mass/volume] in Bod y fluidOrdered By: Tatianna Hilario on 06-02-2022 Albumin (Body fld) [Mass/Vol] 3.9 g/dL 3.2-5.5 [facility] Alkaline phosphatase [Enzyma tic activity/volume] in Serum or PlasmaOrdered By: Tatianna Hilario on 06-02-2022 ALP [Catalytic activity/Vol] 59 U/L 32-92 [facility] Amphetamine Screen Ql (U)Ord ered By: Tatianna Hilario on 06-02-2022 Amphetamines Ql (U) Negative Negative [facility] Aspartate aminotransferase [ Enzymatic activity/volume] in Serum or PlasmaOrdered By: Tatianna Hilario on 06-02-2022 AST [Catalytic activity/Vol] 25 U/L 10-42 [facility] Barbiturates [Presence] in U rineOrdered By: Tatianna Hilario on 06-02-2022 Barbiturates Ql (U) Negative Negative [facility] Basophils Auto (Bld) [#/Vol] Ordered By: Tatianna Hilario on 06-02-2022 Basophils (Bld) [#/Vol] 0.0 10*3/uL 0.0-0.2 [facility] Basophils/100 WBC Auto (Bld) Ordered By: Tatianna Hilario on 06-02-2022 Basophils/100 WBC (Bld) 0.6 % . [facility] Benzodiazepines [Presence] i n UrineOrdered By: Tatianna Hilario on 06-02-2022 Benzodiazepines Ql (U) Positive Negative [facility] Bilirubin Test strip Ql (U)O rdered By: Tatianna Hilario on 06-02-2022 Bilirubin Ql (U) Negative Negative [facility] Bilirubin.total [Mass/volume ] in Serum or PlasmaOrdered By: Tatianna Hilario on 06-02-2022 Bilirubin [Mass/Vol] 0.3 mg/dL 0.3-1.2 [facility] COVID-19 SOFIAOrdered By: Sachin Oro on 06-02-2022 SARS-CoV+SARS-CoV-2 (COVID-19) Ag IA.rapid Ql (Resp) Negative Negative [facility] Comment on above: This is a duplicate Katelyn SARS Antigen (YANELY) result to be used for statistical tracking purpose only. Calcium [Mass/volume] in Ser um or PlasmaOrdered By: Tatianna Hilario on 06-02-2022 Calcium [Mass/Vol] 9.6 mg/dL 8.2-10.2 [facility] Cannabinoids [Presence] in U rine by Screen methodOrdered By: Tatianna Hilario on 06-02-2022 Cannabinoids Screen Ql (U) Negative Negative [facility] Comment on above: These are unconfirme d results and should not be used for legal purposes. Drug Cut-Off Concentration: AMPH 1000 ng/mL CESAR 200 ng/mL DIONNE 200 ng/mL COCM 300 ng/mL OP 300 ng/mL PCP 25 ng/mL THC 20 ng/mL Carbon dioxide, total [Moles /volume] in Serum or PlasmaOrdered By: Tatianna Hilario on 06-02-2022 CO2 [Moles/Vol] 24.5 mmol/L 22.0-30.0 [facility] Chloride [Moles/volume] in S vasquez or PlasmaOrdered By: Tatianna Hilario on 06-02-2022 Chloride [Moles/Vol] 94 mmol/L 95-114 [facility] Color Auto (U)Ordered By: Shahid Hilario on 06-02-2022 Color (U) Yellow Yellow [facility] Complete Blood Count Auto Di ffon 06-02-2022 Basophils (Bld) [#/Vol] 0.0 10*3/uL Normal 0.0-0.2 [facility] Comment on above: Result Comment: PERF ORMED BY: [facility] [address] [place] [address] PATHOLOGIST RESAWYER LILLY LOTT M.D. Performed By: #### S OFSANDRA COVID-19 KATELYN #### [address] Basophils/100 WBC (Bld) 0.6 % Normal . [facility] Comment on above: Performed By: #### S OFSANDRA COVID-19 KATELYN #### [address] Eosinophils (Bld) [#/Vol] 0.1 10*3/uL Normal 0.0-0.45 [facility] Comment on above: Performed By: #### S OFIANMICHELLE COVID-19 KATELYN #### [address] Eosinophils/100 WBC (Bld) 0.8 % Normal . [facility] Comment on above: Performed By: #### S OFSANDRA COVID-19 KATELYN #### [address] Erythrocyte distribution width (RBC) [Ratio] 13.4 % Normal 11.9-15.3 [facility] Comment on above: Performed By: #### S OFSANDRA COVID-19 KATELYN #### [address] Hematocrit (Bld) [Volume fraction] 39.4 % Normal 34.0-46.4 [facility] Comment on above: Performed By: #### S OFSANDRA COVID-19 KATELYN #### [address] Hemoglobin (Bld) [Mass/Vol] 12.8 g/dL Normal 11.8-15.4 [facility] Comment on above: Performed By: #### S OFSANDRA COVID-19 KATELYN #### [address] Lymphocytes (Bld) [#/Vol] 1.8 10*3/uL Normal 1.00-4.8 [facility] Comment on above: Performed By: #### S OFIANEG COVID-19 KATELYN #### [facility] [address] [place] [address] [place] Lymphocytes/100 WBC (Bld) 23.6 % Normal . [facility] Comment on above: Performed By: #### S OFSANDRA COVID-19 KATELYN #### [facility] [address] MCH (RBC) [Entitic mass] 29.7 pg Normal 24.7-34.3 [facility] Comment on above: Performed By: #### S OFSANDRA COVID-19 KATELYN #### [address] MCV (RBC) [Entitic vol] 91.6 fL Normal 80-100 [facility] Comment on above: Performed By: #### S OFSANDRA COVID-19 KATELYN #### [address] Mean Corpuscular HGB Conc 32.4 g/dL Normal 32.0-35.0 [facility] Comment on above: Performed By: #### S OFSANDRA COVID-19 KATELYN #### [place] [address] [place] Monocytes (Bld) [#/Vol] 0.5 10*3/uL Normal 0.0-0.8 [facility] Comment on above: Performed By: #### S OFSANDRA COVID-19 KATELYN #### [place] [address] [place] Monocytes/100 WBC (Bld) 18.48 % Normal 0.00-20.00 [facility] Comment on above: Performed By: #### S OFSANDRA COVID-19 KATELYN #### [place] [address] [place] Monocytes/100 WBC (Bld) 6.0 % Normal . [facility] Comment on above: Performed By: #### S OFSANDRA COVID-19 KATELYN #### [place] [address] [place] Neutrophils (Bld) [#/Vol] 5.3 10*3/uL Normal 1.8-7.7 [facility] Comment on above: Performed By: #### S DEONNA YADAV-19 KATELYN #### [facility] [address] [place] [address] Neutrophils/100 WBC (Bld) 69.0 % Normal . [facility] Comment on above: Performed By: #### S DEONNA YADAV-19 KATELYN #### [facility] [address] [place] [address] NRBC% 0.1 /100{WBC} Normal 0-0.5 [facility] Comment on above: Performed By: #### S DEONNA YADAV-19 KATELYN #### [address] Platelet mean volume (Bld) [Entitic vol] 6.5 fL Normal 6.3-10.7 [facility] Comment on above: Performed By: #### S DEONNA YADAV-Sina KATELYN #### [address] Platelets (Bld) [#/Vol] 372 10*3/uL Normal 150-450 [facility] Comment on above: Performed By: #### S DIONNE YADAVID-19 KATELYN #### [address] RBC (Bld) [#/Vol] 4.31 10*6/uL Normal 3.60-5.00 [facility] Comment on above: Performed By: #### S DIONNE YADAVID-19 KATELYN #### [facility] [address] [place] [address] WBC (Bld) [#/Vol] 7.6 10*3/uL Normal 3.8-11.6 [facility] Comment on above: Performed By: #### S DIONNE YADAVID-19 KATELYN #### [facility] [address] [place] [address] Comprehensive Metabolic Pane alcides 06-02-2022 Albumin [Mass/Vol] 3.9 g/dL Normal 3.2-5.5 [facility] Comment on above: Performed By: #### S DEONNA YADAV- KATELYN #### [facility] [address] Albumin/Globulin [Mass ratio] 1.4 {ratio} Normal [facility] Comment on above: Performed By: #### S DEONNA YADAV- KATELYN #### [facility] [address] ALP [Catalytic activity/Vol] 59 U/L Normal 32-92 [facility] Comment on above: Performed By: #### S DEONNA YADAV- KATELYN #### [address] ALT [Catalytic activity/Vol] 37 U/L Normal 10-60 [facility] Comment on above: Performed By: #### S DEONNA YADAV- KATELYN #### [facility] [address] [place] [address] Anion gap [Moles/Vol] 16.8 mmol/L High 6.0-15.0 [facility] Comment on above: Performed By: #### S DEONNA YADAV- KATELYN #### [address] AST [Catalytic activity/Vol] 25 U/L Normal 10-42 [facility] Comment on above: Performed By: #### S DEONNA YADAV- KATELYN #### [facility] [address] [place] [address] [place] Bilirubin [Mass/Vol] 0.3 mg/dL Normal 0.3-1.2 [facility] Comment on above: Performed By: #### S DEONNA YADAV- KATELYN #### [facility] [address] [place] [address] Calcium [Mass/Vol] 9.6 mg/dL Normal 8.2-10.2 [facility] Comment on above: Performed By: #### S OFIANEG, COVID-19 KATELYN #### [facility] [address] Chloride [Moles/Vol] 94 mmol/L Low 95-114 [facility] Comment on above: Performed By: #### S OFSANDRA COVID-19 KATELYN #### [facility] [address] CO2 [Moles/Vol] 24.5 mmol/L Normal 22.0-30.0 [facility] Comment on above: Performed By: #### S OFSANDRA COVID-19 KATELYN #### [facility] [address] Creatinine [Mass/Vol] 0.70 mg/dL Normal 0.44-1.03 [facility] Comment on above: Performed By: #### S OFSANDRA COVID-19 KATELYN #### [facility] [address] Creatinine Clr Calc Pharmacy 53.85 [facility] Comment on above: Result Comment: PERF ORMED BY: [place] [address] PATHOLOGIST RESAWYER LILLY LOTT M.D. Performed By: #### S OFSANDRA COVID-19 KATELYN #### [facility] [address] Estimated GFR ( Meenu > 60 [facility] Comment on above: Result Comment: GFR estimated reference range: According to KDOQI guidelines, <60 ml/min/1.73m2 is sufficient to diagnose a patient with chronic kidney disease. Performed By: #### S OFSANDRA COVID-19 KATELYN #### [facility] [address] Estimated GFR (Non- Am > 60 [facility] Comment on above: Performed By: #### S OFSANDRA COVID-19 KATELYN #### [facility] [address] [place] [address] [place] Globulin (S) [Mass/Vol] 2.8 g/dL [facility] Comment on above: Performed By: #### S SAMREENSANDRA COVID-19 KATELYN #### [facility] [address] [place] [address] [place] Glucose [Mass/Vol] 138 mg/dL High 70-100 [facility] Comment on above: Result Comment: [place] Glucose Reference Range is dependent on time and content of last meal. Glucose of more than 200 mg/dL in a nonstressed, ambulatory subject supports the diagnosis of Diabetes Mellitus. ADA recommended reference range Performed By: #### S SAMREENSANDRA COVID-19 KATELYN #### [facility] [address] [place] [address] [place] Potassium [Moles/Vol] 4.3 mmol/L Normal 3.5-5.1 [facility] Comment on above: Performed By: #### S VICENTA COVID- KATELYN #### [facility] [address] [place] [address] [place] Protein [Mass/Vol] 6.7 g/dL Normal 6.1-7.9 [facility] Comment on above: Performed By: #### S SAMREENSANDRA COVID-19 KATELYN #### [facility] [address] [place] [address] [place] Sodium [Moles/Vol] 131 mmol/L Low 136-146 [facility] Comment on above: Performed By: #### S SAMREENSANDRA COVID-19 KATELYN #### [facility] [address] [place] [id number] [place] Urea nitrogen [Mass/Vol] 14 mg/dL Normal 9-23 [facility] Comment on above: Performed By: #### S SAMREENSANDRA COVID-19 KATELYN #### [facility] [address] [place] [address] [place] Creatinine and Glomerular fi ltration rate.predicted panel (S/P/Bld)Ordered By: Tatianna Hilario on 06-02-2022 Creatinine [Mass/Vol] 0.70 mg/dL 0.44-1.03 [facility] Drug Screen,Urineon 06-02-19 Amphetamine Screen,Urine Negative Normal Negative [facility] Comment on above: Performed By: #### C K, CRP, CMP, CBC, ESR, TSH3 #### [facility] [address] [place] [address] [place] #### ALDOLASE #### [facility] , Barbiturate Screen,Urine Negative Normal Negative [facility] Comment on above: Performed By: #### C K, CRP, CMP, CBC, ESR, TSH3 #### [address] #### ALDOLASE #### [facility] , Benzodiazepines Screen,Urine Positive High Negative [facility] Comment on above: Performed By: #### C K, CRP, CMP, CBC, ESR, TSH3 #### [address] #### ALDOLASE #### [facility] , Cannabinoid Screen,Urine Negative Normal Negative [facility] Comment on above: Result Comment: Thes e are unconfirmed results and should not be used for legal purposes. Drug Cut-Off Concentration: AMPH 1000 ng/mL CESAR 200 ng/mL DIONNE 200 ng/mL COCM 300 ng/mL OP 300 ng/mL PCP 25 ng/mL THC 20 ng/mL PERFORMED BY: [place] [address] PATHOLOGIST RESAWYER LILLY LOTT M.D. Performed By: #### C K, CRP, CMP, CBC, ESR, TSH3 #### [address] #### ALDOLASE #### [facility] , Cocaine Screen,Urine Negative Normal Negative [facility] Comment on above: Performed By: #### C K, CRP, CMP, CBC, ESR, TSH3 #### [address] #### ALDOLASE #### [facility] , Opiate Screen,Urine Negative Normal Negative [facility] Comment on above: Performed By: #### C K, CRP, CMP, CBC, ESR, TSH3 #### [facility] [address] [place] [address] [place] #### ALDOLASE #### [facility] , Phencyclidine Screen,Urine Negative Normal Negative [facility] Comment on above: Performed By: #### C K, CRP, CMP, CBC, ESR, TSH3 #### [facility] [address] [place] [address] [place] #### ALDOLASE #### [facility] , Eosinophils Auto (Bld) [#/Vo l]Ordered By: Tatianna Hilairo on 06-02-2022 Eosinophils (Bld) [#/Vol] 0.1 10*3/uL 0.0-0.45 [facility] Eosinophils/100 WBC Auto (Bl d)Ordered By: Tatianna Hilario on 06-02-2022 Eosinophils/100 WBC (Bld) 0.8 % . [facility] Erythrocyte distribution wid th Auto (RBC) [Ratio]Ordered By: Tatianna Hilario on 06-02-2022 Erythrocyte distribution width (RBC) [Ratio] 13.4 % 11.9-15.3 [facility] Estimated glomerular filtrat ion rate (GFR) non- AmericanOrdered By: Tatianna Hilario on 06-02-2022 GFR/1.73 sq M.predicted among non-blacks MDRD (S/P/Bld) [Vol rate/Area] > 60 mL/Min [facility] Ethanol [Mass/volume] in Ser um or PlasmaOrdered By: Tatianna Hilario on 06-02-2022 Ethanol [Mass/Vol] mg/dL [facility] Ethanol [Mass/Vol] TNP [facility] Comment on above: Test not performed Ethyl Alcohol Profileon 05-07 Ethanol [Mass/Vol] mg/dL Normal [facility] Comment on above: Performed By: #### S OFIANEG, COVID-19 KATELYN #### [facility] [address] Percent Ethanol Not performed Normal [facility] Comment on above: Result Comment: PERF ORMED BY: [facility] [address] [place] [address] PATHOLOGIST RESAWYER LILLY LOTT M.D. Performed By: #### S LAURA YADAV #### [facility] [address] Globulin Calc (S) [Mass/Vol] Ordered By: Tatianna Hilario on 06-02-2022 Globulin (S) [Mass/Vol] 2.8 g/dL [facility] Glucose [Mass/volume] in Ser um or PlasmaOrdered By: Tatianna Hilario on 06-02-2022 Glucose [Mass/Vol] 138 mg/dL 70-100 [facility] Comment on above: ADA recommended refe rence rangeRandom Glucose Reference Range is dependent on time and content of last meal. Glucose of more than 200 mg/dL in a nonstressed, ambulatory subject supports the diagnosis of Diabetes Mellitus. Hematocrit Auto (Bld) [Volum e fraction]Ordered By: Tatianna Hilario on 06-02-2022 Hematocrit (Bld) [Volume fraction] 39.4 % 34.0-46.4 [facility] Hemoglobin [Mass/volume] in BloodOrdered By: Tatianna Hilario on 06-02-2022 Hemoglobin (Bld) [Mass/Vol] 12.8 g/dL 11.8-15.4 [facility] Ketones Auto test strip (U) [Mass/Vol]Ordered By: Tatianna Hilario on 06-02-2022 Ketones (U) [Mass/Vol] Negative Negative [facility] Laboratory - Drug toxicology Ordered By: Tatianna Hilario on 06-02-2022 Opiates Ql (U) Negative Negative [facility] Leukocytes [#/volume] correc marlen for nucleated erythrocytes in Blood by Automated counOrdered By: Tatianna Hilario on 06-02-2022 WBC corrected for nucl RBC Auto (Bld) [#/Vol] 7.6 10*3/uL 3.8-11.6 [facility] Lymphocytes Auto (Bld) [#/Vo l]Ordered By: Tatianna Hilario on 06-02-2022 Lymphocytes (Bld) [#/Vol] 1.8 10*3/uL 1.00-4.8 [facility] Lymphocytes/100 WBC Auto (Bl d)Ordered By: Tatianna Hilario on 06-02-2022 Lymphocytes/100 WBC (Bld) 23.6 % . [facility] MCH Auto (RBC) [Entitic mass ]Ordered By: Tatianna Hilario on 06-02-2022 MCH (RBC) [Entitic mass] 29.7 pg 24.7-34.3 [facility] MCHC Auto (RBC) [Mass/Vol]Or dered By: Tatianna Hilario on 06-02-2022 MCHC (RBC) [Mass/Vol] 32.4 g/dL 32.0-35.0 [facility] MCV Auto (RBC) [Entitic vol] Ordered By: Tatianna Hilario on 06-02-2022 MCV (RBC) [Entitic vol] 91.6 fL 80-100 [facility] Monocyte distribution width [Entitic volume] in Blood by AutomatedOrdered By: Tatianna Hilario on 06-02-2022 Monocyte distribution width Auto (Bld) [Entitic vol] 18.48 % 0.00-20.00 [facility] Monocytes Auto (Bld) [#/Vol] Ordered By: Tatianna Hilario on 06-02-2022 Monocytes (Bld) [#/Vol] 0.5 10*3/uL 0.0-0.8 [facility] Monocytes/100 WBC Auto (Bld) Ordered By: Tatianna Hilario on 06-02-2022 Monocytes/100 WBC (Bld) 6.0 % . [facility] Neutrophils Auto (Bld) [#/Vo l]Ordered By: Tatianna Hilario on 06-02-2022 Neutrophils (Bld) [#/Vol] 5.3 10*3/uL 1.8-7.7 [facility] Neutrophils/100 WBC Auto (Bl d)Ordered By: Tatianna Hilario on 06-02-2022 Neutrophils/100 WBC (Bld) 69.0 % . [facility] Nitrite Test strip Ql (U)Ord ered By: Tatianna Hilario on 06-02-2022 Nitrite Ql (U) Negative Negative [facility] No Panel InformationOrdered By: Anna Oro on 06-02-2022 SARS Antigen (LFIA) [facility] SARS Antigen (LFIA) [facility] No Panel InformationOrdered By: Tatianna Hilario on 06-02-2022 Estimated GFR () > 60 mL/Min [facility] Comment on above: GFR estimated refere nce range: According to KDOQI guidelines, <60 ml/min/1.73m2 is sufficient to diagnose a patient with chronic kidney disease. Pharmacy Creatinine Clearance (Chem 53.85 [facility] Nucleated erythrocytes [Pres ence] in Blood by Automated countOrdered By: Tatianna Hilario on 06-02-2022 Nucleated RBC Auto Ql (Bld) 0.1 /100{WBC} 0-0.5 [facility] Phencyclidine Screen Ql (U)O rdered By: Tatianna Hilario on 06-02-2022 Phencyclidine Ql (U) Negative Negative [facility] Platelet mean volume Auto (B ld) [Entitic vol]Ordered By: Tatianna Hilario on 06-02-2022 Platelet mean volume (Bld) [Entitic vol] 6.5 fL 6.3-10.7 [facility] Platelets Auto (Bld) [#/Vol] Ordered By: Tatinana Hilario on 06-02-2022 Platelets (Bld) [#/Vol] 372 10*3/uL 150-450 [facility] Potassium [Moles/volume] in Serum or PlasmaOrdered By: Tatianna Hilario on 06-02-2022 Potassium [Moles/Vol] 4.3 mmol/L 3.5-5.1 [facility] Protein Auto test strip (U) [Mass/Vol]Ordered By: Tatianna Hilario on 06-02-2022 Protein (U) [Mass/Vol] Negative Negative [facility] Protein [Mass/volume] in Ser um or PlasmaOrdered By: Tatianna Hilario on 06-02-2022 Protein [Mass/Vol] 6.7 g/dL 6.1-7.9 [facility] RBC Auto (Bld) [#/Vol]Ordere d By: Tatianna Hilario on 06-02-2022 RBC (Bld) [#/Vol] 4.31 10*6/uL 3.60-5.00 [facility] Serum or plasma alanine gomez otransferase measurement without P-5'-P (enzymatic activiOrdered By: Tatianna Hilario on 06-02-2022 ALT No additional P-5'-P [Catalytic activity/Vol] 37 U/L 10-60 [facility] Serum or plasma albumin/glob ulin mass ratioOrdered By: Tatianna Hilario on 06-02-2022 Albumin/Globulin [Mass ratio] 1.4 {ratio} [facility] Serum or plasma anion gap de terminationOrdered By: Tatianna Hilario on 06-02-2022 Anion gap [Moles/Vol] 16.8 mmol/L 6.0-15.0 [facility] Sodium [Moles/volume] in Ser um or PlasmaOrdered By: Tatianna Hilario on 06-02-2022 Sodium [Moles/Vol] 131 mmol/L 136-146 [facility] Specific gravity Auto test s trip (U) [Rel density]Ordered By: Tatianna Hilario on 06-02-2022 Specific gravity (U) [Rel density] 1.005 1.001-1.03 0 [facility] Urea nitrogen [Mass/volume] in Serum or PlasmaOrdered By: Tatianna Hilario on 06-02-2022 Urea nitrogen [Mass/Vol] 14 mg/dL 9-23 [facility] Urinalysison 06-02-2022 Appearance (U) Clear Normal Clear [facility] Comment on above: Order Comment: Name Collection Type:: Clean-Voided Midstream Performed By: #### C K, CRP, CMP, CBC, ESR, TSH3 #### [facility] [address] [place] [address] [place] #### ALDOLASE #### [facility] , Bilirubin,Urine Negative Normal Negative [facility] Comment on above: Order Comment: Name Collection Type:: Clean-Voided Midstream Performed By: #### C K, CRP, CMP, CBC, ESR, TSH3 #### [facility] [address] [place] [address] #### ALDOLASE #### [facility] , Color (U) Yellow Normal Yellow [facility] Comment on above: Order Comment: Name Collection Type:: Clean-Voided Midstream Performed By: #### C K, CRP, CMP, CBC, ESR, TSH3 #### [facility] [address] [place] [address] #### ALDOLASE #### [facility] , Glucose Ql (U) Normal Normal Normal [facility] Comment on above: Order Comment: Name Collection Type:: Clean-Voided Midstream Performed By: #### C K, CRP, CMP, CBC, ESR, TSH3 #### [facility] [address] [place] [address] #### ALDOLASE #### [facility] , Ketones Ql (U) Negative Normal Negative [facility] Comment on above: Order Comment: Name Collection Type:: Clean-Voided Midstream Performed By: #### C K, CRP, CMP, CBC, ESR, TSH3 #### [facility] [address] [place] [address] #### ALDOLASE #### [facility] , Leukocyte esterase Test strip Ql (U) Negative Normal Negative [facility] Comment on above: Order Comment: Name Collection Type:: Clean-Voided Midstream Performed By: #### C K, CRP, CMP, CBC, ESR, TSH3 #### [facility] [address] [place] [address] #### ALDOLASE #### [facility] , Nitrite,Urine Negative Normal Negative [facility] Comment on above: Order Comment: Name Collection Type:: Clean-Voided Midstream Performed By: #### C K, CRP, CMP, CBC, ESR, TSH3 #### [facility] [address] [place] [address] [place] #### ALDOLASE #### [facility] , Occult Blood,Urine Negative Normal Negative [facility] Comment on above: Order Comment: Name Collection Type:: Clean-Voided Midstream Result Comment: PERF ORMED BY: [place] [address] PATHOLOGIST RESAWYER LILLY LOTT M.D. Performed By: #### C K, CRP, CMP, CBC, ESR, TSH3 #### [address] #### ALDOLASE #### [facility] , pH (U) 6.5 [pH] Normal 5.0-9.0 [facility] Comment on above: Order Comment: Name Collection Type:: Clean-Voided Midstream Performed By: #### C K, CRP, CMP, CBC, ESR, TSH3 #### [address] #### ALDOLASE #### [facility] , Protein,Urine Negative Normal Negative [facility] Comment on above: Order Comment: Name Collection Type:: Clean-Voided Midstream Performed By: #### C K, CRP, CMP, CBC, ESR, TSH3 #### [facility] [address] [place] [address] #### ALDOLASE #### [facility] , Specificy [place],Urine 1.005 Normal 1.001-1.03 0 [facility] Comment on above: Order Comment: Name Collection Type:: Clean-Voided Midstream Performed By: #### C K, CRP, CMP, CBC, ESR, TSH3 #### [place] [address] [place] #### ALDOLASE #### [facility] , Urobilinogen,Urine Normal Normal Normal [facility] Comment on above: Order Comment: Name Collection Type:: Clean-Voided Midstream Performed By: #### C K, CRP, CMP, CBC, ESR, TSH3 #### [place] [address] [place] #### ALDOLASE #### [facility] , Urine clarity by refractomet ry automatedOrdered By: Tatianna Hilario on 06-02-2022 Clarity Refractometry automated (U) Clear Clear [facility] Urine cocaine detectionOrder ed By: Tatianna Hilario on 06-02-2022 Cocaine Ql (U) Negative Negative [facility] Urine glucose measurement by automated test strip (mass/volume)Ordered By: Tatianna Hilario on 06-02-2022 Glucose Auto test strip (U) [Mass/Vol] Normal mg/dL Normal [facility] Urine hemoglobin detection b y automated test stripOrdered By: Tatianna Hilario on 06-02-2022 Hemoglobin Auto test strip Ql (U) Negative Negative [facility] Urine leukocyte esterase det ection by automated test stripOrdered By: Tatianna Hilario on 06-02-2022 Leukocyte esterase Auto test strip Ql (U) Negative Negative [facility] Urobilinogen Auto test strip (U) [Mass/Vol]Ordered By: Tatianna Hilario on 06-02-2022 Urobilinogen (U) [Mass/Vol] Normal mg/dL Normal [facility] WBC Auto (Bld) [#/Vol]Ordere d By: Tatianna Hilario on 06-02-2022 WBC (Bld) [#/Vol] 7.6 10*3/uL 3.8-11.6 [facility] pH Auto test strip (U)Ordere d By: Tatianna Hilario on 06-02-2022 pH (U) 6.5 [pH] 5.0-9.0 [facility] CULTURE URINEon 05-20-2022 CULTURE URINE Culture Observations : LIGHT GROWTH OF MIXED GENITAL JAVON. NO POTENTIAL PATHOGENS SEEN. Normal [facility] Comment on above: Performed By: #### L IPID, BMP, NA #### [facility] [address] [place] [address] Dr. Dilip Cartagena CULTURE URINEon 05-08-2022 CULTURE [...] F Nitrofurantoin <=16 S F Normal [facility] Comment on above: Performed By: #### L IPID, BMP, NA #### [facility] [address] [place] [address] [address] Dilip Cartagena LUIS ENRIQUE Antinuclear Antibodieson 05-05-2022 Antinuclear Abs, IFA Positive Critically abnormal . [facility] Comment on above: Result Comment: Nega tive <1:80 Borderline 1:80 Positive >1:80 Performed By: #### S VICENTA, COVID-19 KATELYN #### [facility] [address] Note 1 Normal . [facility] Comment on above: Result Comment: For [...] titers Nucleosomes, Histones Drug-induced SLE Speckled Sm, EMBALMER ASSISTANT, SCL-70, SLE,MCTD,PSS (diffuse form), SS-A/SS-B Sjogrens Nucleolar SCL-70, PM-1/SCL High titers Scleroderma, PM/DM Centromere Centromere PSS (limited form) w/Crest syndrome variable Nuclear Dot [id number] Primary Biliary Cirrhosis Nuclear GP210, Primary Biliary Cirrhosis Membrane ban A,B,C Performed at: [address] [id number] Slide Maker: Reggie Lazcano PhD, Phone: [phone] PERFORMED BY: [place] [address] PATHOLOGIST RESAWYER LILLY LOTT M.D. Performed By: #### S OFSANDRA COVID-19 KATELYN #### [address] Speckled Pattern 1:80 Normal . [facility] Comment on above: Result Comment: ICAP nomenclature: AC-2,4,5,29 Performed By: #### S OFSANDRA COVID-19 KATELYN #### [address] Aldolaseon 05-05-2022 Aldolase 7.8 U/L Normal 3.3-10.3 [facility] Comment on above: Result Comment: Perf ormed at: [place] [id number] Slide Maker: Reggie Lazcano PhD, Phone: [phone] PERFORMED BY: [place] [address] PATHOLOGIST RESAWYER LILLY LOTT M.D. Performed By: #### C K, CRP, CMP, CBC, ESR, TSH3 #### [address] #### ALDOLASE #### [facility] , Angiotensin Converting Enzym adelia 05-05-2022 Angiotensin converting enzyme [Catalytic activity/Vol] U/L Normal 14-82 [facility] Comment on above: Result Comment: Perf ormed at: [place] [id number] Slide Maker: Reggie Lazcano PhD, Phone: [phone] Performed By: #### S OFSANDRA, COVID-19 KATELYN #### [address] Basophils Auto (Bld) [#/Vol] Ordered By: Johann Dolan on 05-05-2022 Basophils (Bld) [#/Vol] 0.1 10*3/uL 0.0-0.2 [facility] Basophils/100 WBC Auto (Bld) Ordered By: Johann Dolan on 05-05-2022 Basophils/100 WBC (Bld) 0.7 % . [facility] Body fluid albumin measureme nt (mass/volume)Ordered By: Johann Dolan on 05-05-2022 Albumin (Body fld) [Mass/Vol] 4.6 g/dL 3.2-5.5 [facility] C reactive protein [Mass/vol ume] in Serum or PlasmaOrdered By: Johann Dolan on 05-05-2022 CRP [Mass/Vol] mg/L 0-10 [facility] Comment on above: Performed at: [facility] [place] [id number] Director: Reggie Lazcano PhD, Phone: [phone] C-Reactive Proteinon 023 C-Reactive Protein 0.6 mg/dL Normal 0.0-1.0 [facility] Comment on above: Performed By: #### C K, CRP, CMP, CBC, ESR, TSH3 #### [facility] [address] [place] [address] [place] #### ALDOLASE #### [facility] , CT biopsyOrdered By: Johann Dolan on 05-05-2022 CT biopsy 7.8 U/L 3.3-10.3 [facility] Comment on above: Performed at: [facility] [address] [id number] Director: Reggie Lazcano PhD, Phone: [phone] Complete Blood Count Auto Di ffon 05-05-2022 Basophils (Bld) [#/Vol] 0.1 10*3/uL Normal 0.0-0.2 [facility] Comment on above: Performed By: #### C K, CRP, CMP, CBC, ESR, TSH3 #### [facility] [address] [place] [address] [place] #### ALDOLASE #### [facility] , Basophils/100 WBC (Bld) 0.7 % Normal . [facility] Comment on above: Performed By: #### C K, CRP, CMP, CBC, ESR, TSH3 #### [address] #### ALDOLASE #### [facility] , Eosinophils (Bld) [#/Vol] 0.1 10*3/uL Normal 0.0-0.45 [facility] Comment on above: Performed By: #### C K, CRP, CMP, CBC, ESR, TSH3 #### [place] [address] [place] #### ALDOLASE #### [facility] , Eosinophils/100 WBC (Bld) 0.7 % Normal . [facility] Comment on above: Performed By: #### C K, CRP, CMP, CBC, ESR, TSH3 #### [address] #### ALDOLASE #### [facility] , Erythrocyte distribution width (RBC) [Ratio] 13.9 % Normal 11.9-15.3 [facility] Comment on above: Performed By: #### C K, CRP, CMP, CBC, ESR, TSH3 #### [facility] [address] [place] [address] [place] #### ALDOLASE #### [facility] , Hematocrit (Bld) [Volume fraction] 40.3 % Normal 34.0-46.4 [facility] Comment on above: Performed By: #### C K, CRP, CMP, CBC, ESR, TSH3 #### [facility] [address] [place] [address] [place] #### ALDOLASE #### [facility] , Hemoglobin (Bld) [Mass/Vol] 13.1 g/dL Normal 11.8-15.4 [facility] Comment on above: Performed By: #### C K, CRP, CMP, CBC, ESR, TSH3 #### [place] [address] [place] #### ALDOLASE #### [facility] , Lymphocytes (Bld) [#/Vol] 1.7 10*3/uL Normal 1.00-4.8 [facility] Comment on above: Performed By: #### C K, CRP, CMP, CBC, ESR, TSH3 #### [address] #### ALDOLASE #### [facility] , Lymphocytes/100 WBC (Bld) 22.1 % Normal . [facility] Comment on above: Performed By: #### C K, CRP, CMP, CBC, ESR, TSH3 #### [address] #### ALDOLASE #### [facility] , MCH (RBC) [Entitic mass] 30.2 pg Normal 24.7-34.3 [facility] Comment on above: Performed By: #### C K, CRP, CMP, CBC, ESR, TSH3 #### [address] #### ALDOLASE #### [facility] , MCV (RBC) [Entitic vol] 92.6 fL Normal 80-100 [facility] Comment on above: Performed By: #### C K, CRP, CMP, CBC, ESR, TSH3 #### [place] [address] [place] #### ALDOLASE #### [facility] , Mean Corpuscular HGB Conc 32.6 g/dL Normal 32.0-35.0 [facility] Comment on above: Performed By: #### C K, CRP, CMP, CBC, ESR, TSH3 #### [place] [address] [place] #### ALDOLASE #### [facility] , Monocytes (Bld) [#/Vol] 0.3 10*3/uL Normal 0.0-0.8 [facility] Comment on above: Performed By: #### C K, CRP, CMP, CBC, ESR, TSH3 #### [facility] [address] [place] [address] [place] #### ALDOLASE #### [facility] , Monocytes/100 WBC (Bld) 4.5 % Normal . [facility] Comment on above: Performed By: #### C K, CRP, CMP, CBC, ESR, TSH3 #### [facility] [address] [place] [address] [place] #### ALDOLASE #### [facility] , Neutrophils (Bld) [#/Vol] 5.4 10*3/uL Normal 1.8-7.7 [facility] Comment on above: Performed By: #### C K, CRP, CMP, CBC, ESR, TSH3 #### [facility] [address] [place] [address] [place] #### ALDOLASE #### [facility] , Neutrophils/100 WBC (Bld) 72.0 % Normal . [facility] Comment on above: Performed By: #### C K, CRP, CMP, CBC, ESR, TSH3 #### [facility] [address] [place] [address] [place] #### ALDOLASE #### [facility] , NRBC% 0.1 /100{WBC} Normal 0-0.5 [facility] Comment on above: Performed By: #### C K, CRP, CMP, CBC, ESR, TSH3 #### [facility] [address] [place] [address] [place] #### ALDOLASE #### [facility] , Platelet mean volume (Bld) [Entitic vol] 6.7 fL Normal 6.3-10.7 [facility] Comment on above: Performed By: #### C K, CRP, CMP, CBC, ESR, TSH3 #### [facility] [address] [place] [address] #### ALDOLASE #### [facility] , Platelets (Bld) [#/Vol] 379 10*3/uL Normal 150-450 [facility] Comment on above: Performed By: #### C K, CRP, CMP, CBC, ESR, TSH3 #### [facility] [address] [place] [address] [place] #### ALDOLASE #### [facility] , RBC (Bld) [#/Vol] 4.35 10*6/uL Normal 3.60-5.00 [facility] Comment on above: Performed By: #### C K, CRP, CMP, CBC, ESR, TSH3 #### [place] [address] [place] #### ALDOLASE #### [facility] , WBC (Bld) [#/Vol] 7.5 10*3/uL Normal 3.8-11.6 [facility] Comment on above: Performed By: #### C K, CRP, CMP, CBC, ESR, TSH3 #### [facility] [address] [place] [address] [place] #### ALDOLASE #### [facility] , Comprehensive Metabolic Pane alcides 05-05-2022 Albumin [Mass/Vol] 4.6 g/dL Normal 3.2-5.5 [facility] Comment on above: Performed By: #### C K, CRP, CMP, CBC, ESR, TSH3 #### [facility] [address] [place] [address] [place] #### ALDOLASE #### [facility] , Albumin/Globulin [Mass ratio] 1.9 {ratio} Normal [facility] Comment on above: Performed By: #### C K, CRP, CMP, CBC, ESR, TSH3 #### [facility] [address] [place] [address] #### ALDOLASE #### [facility] , ALP [Catalytic activity/Vol] 61 U/L Normal 32-92 [facility] Comment on above: Performed By: #### C K, CRP, CMP, CBC, ESR, TSH3 #### [facility] [address] [place] [address] #### ALDOLASE #### [facility] , ALT [Catalytic activity/Vol] 61 U/L High 10-60 [facility] Comment on above: Performed By: #### C K, CRP, CMP, CBC, ESR, TSH3 #### [facility] [address] [place] [address] #### ALDOLASE #### [facility] , Anion gap [Moles/Vol] 17.3 mmol/L High 6.0-15.0 [facility] Comment on above: Performed By: #### C K, CRP, CMP, CBC, ESR, TSH3 #### [facility] [address] [place] [address] #### ALDOLASE #### [facility] , AST [Catalytic activity/Vol] 39 U/L Normal 10-42 [facility] Comment on above: Performed By: #### C K, CRP, CMP, CBC, ESR, TSH3 #### [facility] [address] [place] [address] [place] #### ALDOLASE #### [facility] , Bilirubin [Mass/Vol] 0.6 mg/dL Normal 0.3-1.2 [facility] Comment on above: Performed By: #### C K, CRP, CMP, CBC, ESR, TSH3 #### [facility] [address] [place] [address] [place] #### ALDOLASE #### [facility] , Calcium [Mass/Vol] 10.3 mg/dL High 8.2-10.2 [facility] Comment on above: Performed By: #### C K, CRP, CMP, CBC, ESR, TSH3 #### [facility] [address] [place] [address] [place] #### ALDOLASE #### [facility] , Chloride [Moles/Vol] 94 mmol/L Low 95-114 [facility] Comment on above: Performed By: #### C K, CRP, CMP, CBC, ESR, TSH3 #### [facility] [address] [place] [address] [place] #### ALDOLASE #### [facility] , CO2 [Moles/Vol] 25.4 mmol/L Normal 22.0-30.0 [facility] Comment on above: Performed By: #### C K, CRP, CMP, CBC, ESR, TSH3 #### [address] #### ALDOLASE #### [facility] , Creatinine [Mass/Vol] 0.66 mg/dL Normal 0.44-1.03 [facility] Comment on above: Performed By: #### C K, CRP, CMP, CBC, ESR, TSH3 #### [facility] [address] [place] [address] [place] #### ALDOLASE #### [facility] , Estimated GFR ( Meenu > 60 [facility] Comment on above: Result Comment: GFR estimated reference range: According to KDOQI guidelines, <60 ml/min/1.73m2 is sufficient to diagnose a patient with chronic kidney disease. Performed By: #### C K, CRP, CMP, CBC, ESR, TSH3 #### [place] [address] [place] #### ALDOLASE #### [facility] , Estimated GFR (Non- Am > 60 [facility] Comment on above: Performed By: #### C K, CRP, CMP, CBC, ESR, TSH3 #### [place] [address] [place] #### ALDOLASE #### [facility] , Globulin (S) [Mass/Vol] 2.4 g/dL Normal [facility] Comment on above: Performed By: #### C K, CRP, CMP, CBC, ESR, TSH3 #### [facility] [address] [place] [address] [place] #### ALDOLASE #### [facility] , Glucose [Mass/Vol] 119 mg/dL High 70-100 [facility] Comment on above: Result Comment: [facility] Glucose Reference Range is dependent on time and content of last meal. Glucose of more than 200 mg/dL in a nonstressed, ambulatory subject supports the diagnosis of Diabetes Mellitus. ADA recommended reference range Performed By: #### C K, CRP, CMP, CBC, ESR, TSH3 #### [address] #### ALDOLASE #### [facility] , Potassium [Moles/Vol] 4.7 mmol/L Normal 3.5-5.1 [facility] Comment on above: Performed By: #### C K, CRP, CMP, CBC, ESR, TSH3 #### [facility] [address] [place] [address] [place] #### ALDOLASE #### [facility] , Protein [Mass/Vol] 7.0 g/dL Normal 6.1-7.9 [facility] Comment on above: Performed By: #### C K, CRP, CMP, CBC, ESR, TSH3 #### [place] [address] [place] #### ALDOLASE #### [facility] , Sodium [Moles/Vol] 132 mmol/L Low 136-146 [facility] Comment on above: Performed By: #### C K, CRP, CMP, CBC, ESR, TSH3 #### [place] [address] [place] #### ALDOLASE #### [facility] , Urea nitrogen [Mass/Vol] 12 mg/dL Normal 9-23 [facility] Comment on above: Performed By: #### C K, CRP, CMP, CBC, ESR, TSH3 #### [facility] [address] [place] [address] #### ALDOLASE #### [facility] , Creatine Kinaseon 05-05-2022 CK [Catalytic activity/Vol] 1859 U/L High [facility] Comment on above: Result Comment: PERF ORMED BY: [place] [address] PATHOLOGIST RESAWYER LILLY LOTT M.D. Performed By: #### C K, CRP, CMP, CBC, ESR, TSH3 #### [facility] [address] [place] [address] [place] #### ALDOLASE #### [facility] , Creatine kinase [Enzymatic a ctivity/volume] in Serum or PlasmaOrdered By: Johann Dolan on 05-05-2022 CK [Catalytic activity/Vol] 1859 U/L [facility] Creatinine and Glomerular fi ltration rate.predicted panel (S/P/Bld)Ordered By: Johann Dolan on 05-05-2022 Creatinine [Mass/Vol] 0.66 mg/dL 0.44-1.03 [facility] Eosinophils Auto (Bld) [#/Vo l]Ordered By: Johann Dolan on 05-05-2022 Eosinophils (Bld) [#/Vol] 0.1 10*3/uL 0.0-0.45 [facility] Eosinophils/100 WBC Auto (Bl d)Ordered By: Johann Dolan on 05-05-2022 Eosinophils/100 WBC (Bld) 0.7 % . [facility] Erythrocyte Sedimentation Ra yvonne 05-05-2022 ESR (Bld) [Velocity] 15 mm/h Normal 0-29 [facility] Comment on above: Result Comment: PERF ORMED BY: [place] [address] PATHOLOGIST RESAWYER LILLY LOTT M.D. Performed By: #### C K, CRP, CMP, CBC, ESR, TSH3 #### [address] #### ALDOLASE #### [facility] , Erythrocyte distribution wid th Auto (RBC) [Ratio]Ordered By: Johann Dolan on 05-05-2022 Erythrocyte distribution width (RBC) [Ratio] 13.9 % 11.9-15.3 [facility] Erythrocyte sedimentation ra te by Photometric methodOrdered By: Johann Dolan on 05-05-2022 ESR Photometric method (Bld) [Velocity] 15 mm/hr 0-29 [facility] Estimated glomerular filtrat ion rate (GFR) non- AmericanOrdered By: Johann Dolan on 05-05-2022 GFR/1.73 sq M.predicted among non-blacks MDRD (S/P/Bld) [Vol rate/Area] > 60 mL/Min [facility] Globulin Calc (S) [Mass/Vol] Ordered By: Johann Dolan on 05-05-2022 Globulin (S) [Mass/Vol] 2.4 g/dL [facility] Hematocrit Auto (Bld) [Volum e fraction]Ordered By: Johann Dolan on 05-05-2022 Hematocrit (Bld) [Volume fraction] 40.3 % 34.0-46.4 [facility] Hemoglobin [Mass/volume] in BloodOrdered By: Johann Dolan on 05-05-2022 Hemoglobin (Bld) [Mass/Vol] 13.1 g/dL 11.8-15.4 [facility] LC CRPon 05-05-2022 LC CRP, Quant <1 Normal 0-10 [facility] Comment on above: Result Comment: Perf ormed at: CB - [facility] [address] [id number] Slide Maker: Reggie Lazcano PhD, Phone: [phone] PERFORMED BY: [place] [address] PATHOLOGIST RESAWYER LILLY LOTT M.D. Performed By: #### S DIONNE YADAVID-19 KATELYN #### [facility] [address] Leukocytes [#/volume] correc marlen for nucleated erythrocytes in Blood by Automated counOrdered By: Johann Dolan on 05-05-2022 WBC corrected for nucl RBC Auto (Bld) [#/Vol] 7.5 10*3/uL 3.8-11.6 [facility] Lymphocytes Auto (Bld) [#/Vo l]Ordered By: Johann Dolan on 05-05-2022 Lymphocytes (Bld) [#/Vol] 1.7 10*3/uL 1.00-4.8 [facility] Lymphocytes/100 WBC Auto (Bl d)Ordered By: Johann Dolan on 05-05-2022 Lymphocytes/100 WBC (Bld) 22.1 % . [facility] MCH Auto (RBC) [Entitic mass ]Ordered By: Johann Dolan on 05-05-2022 MCH (RBC) [Entitic mass] 30.2 pg 24.7-34.3 [facility] MCHC Auto (RBC) [Mass/Vol]Or dered By: Johann Dolan on 05-05-2022 MCHC (RBC) [Mass/Vol] 32.6 g/dL 32.0-35.0 [facility] MCV Auto (RBC) [Entitic vol] Ordered By: Johann Dolan on 05-05-2022 MCV (RBC) [Entitic vol] 92.6 fL 80-100 [facility] Monocytes Auto (Bld) [#/Vol] Ordered By: Johann Dolan on 05-05-2022 Monocytes (Bld) [#/Vol] 0.3 10*3/uL 0.0-0.8 [facility] Monocytes/100 WBC Auto (Bld) Ordered By: Johann Dolan on 05-05-2022 Monocytes/100 WBC (Bld) 4.5 % . [facility] Myositis Panelon 05-05-2022 Myositis Panel Normal [facility] Comment on above: Result Comment: See report. Scanned copy available in EMR. PERFORMED BY: [facility] [facility] [place] [id number] PATHOLOGIST RESAWYER LILLY LOTT M.D. Performed By: #### S DEONNA YADAV-19 KATELYN #### [facility] [address] Neutrophils Auto (Bld) [#/Vo l]Ordered By: Johann Dolan on 05-05-2022 Neutrophils (Bld) [#/Vol] 5.4 10*3/uL 1.8-7.7 [facility] Neutrophils/100 WBC Auto (Bl d)Ordered By: Johann Dolan on 05-05-2022 Neutrophils/100 WBC (Bld) 72.0 % . [facility] No Panel InformationOrdered By: Johann Dolan on 05-05-2022 Anti-Nuclear Antibody Comment 2 See comment . [facility] Comment on above: For more information [...] titers Nucleosomes, Histones Drug-induced SLE Speckled Sm, EMBALMER ASSISTANT, SCL-70, SLE,MCTD,PSS (diffuse form), SS-A/SS-B Sjogrens Nucleolar SCL-70, PM-1/SCL High titers Scleroderma, PM/DM Centromere Centromere PSS (limited form) w/Crest syndrome variable Nuclear Dot [id number] Primary Biliary Cirrhosis Nuclear GP210, Primary Biliary CirrhosisMembrane ban A,B,C Performed at: [facility] [id number] Director: Reggie Lazcano PhD, Phone: [phone] Myositis Autoantibodies See comment [facility] Comment on above: See report. Scanned copy available in EMR. Estimated GFR () > 60 mL/Min [facility] Comment on above: GFR estimated refere nce range: According to KDOQI guidelines, <60 ml/min/1.73m2 is sufficient to diagnose a patient with chronic kidney disease. Pharmacy Creatinine Clearance (Chem N/A [facility] Nucleated erythrocytes [Pres ence] in Blood by Automated countOrdered By: Johann Dolan on 05-05-2022 Nucleated RBC Auto Ql (Bld) 0.1 /100{WBC} 0-0.5 [facility] Platelet mean volume Auto (B ld) [Entitic vol]Ordered By: Johann Dolan on 05-05-2022 Platelet mean volume (Bld) [Entitic vol] 6.7 fL 6.3-10.7 [facility] Platelets Auto (Bld) [#/Vol] Ordered By: Johann Dolan on 05-05-2022 Platelets (Bld) [#/Vol] 379 10*3/uL 150-450 [facility] Protein [Mass/volume] in Ser um or PlasmaOrdered By: Johann Dolan on 05-05-2022 Protein [Mass/Vol] 7.0 g/dL 6.1-7.9 [facility] RBC Auto (Bld) [#/Vol]Ordere d By: Johann Dolan on 05-05-2022 RBC (Bld) [#/Vol] 4.35 10*6/uL 3.60-5.00 [facility] Serum angiotensin converting enzyme (JOS) measurementOrdered By: Johann Dolan on 05-05-2022 Angiotensin converting enzyme [Catalytic activity/Vol] U/L 14-82 [facility] Comment on above: Performed at: [place] [id number] Director: Reggie Lazcano PhD, Phone: [phone] Serum nuclear antibody titer Ordered By: Johann Dolan on 05-05-2022 Nuclear Ab (S) [Titer] Positive . [facility] Comment on above: Negative <1:80 Borde rline 1:80 Positive >1:80 Serum or plasma alanine gomez otransferase measurement without P-5'-P (enzymatic activiOrdered By: Johann Dolan on 05-05-2022 ALT No additional P-5'-P [Catalytic activity/Vol] 61 U/L 10-60 [facility] Serum or plasma albumin/glob ulin mass ratioOrdered By: Johann Dolan on 05-05-2022 Albumin/Globulin [Mass ratio] 1.9 {ratio} [facility] Serum or plasma alkaline rashawn sphatase measurement (enzymatic activity/volume)Ordered By: Johann Dolan on 05-05-2022 ALP [Catalytic activity/Vol] 61 U/L 32-92 [facility] Serum or plasma anion gap de terminationOrdered By: Johann Dolan on 05-05-2022 Anion gap [Moles/Vol] 17.3 mmol/L 6.0-15.0 [facility] Serum or plasma aspartate am inotransferase measurement (enzymatic activity/volume)Ordered By: Johann Dolan on 05-05-2022 AST [Catalytic activity/Vol] 39 U/L 10-42 [facility] Serum or plasma calcium jose urement (mass/volume)Ordered By: Johann Dolan on 05-05-2022 Calcium [Mass/Vol] 10.3 mg/dL 8.2-10.2 [facility] Serum or plasma chloride shay surement (moles/volume)Ordered By: Johann Dolan on 05-05-2022 Chloride [Moles/Vol] 94 mmol/L 95-114 [facility] Serum or plasma glucose jose urement (mass/volume)Ordered By: Johann Dolan on 05-05-2022 Glucose [Mass/Vol] 119 mg/dL 70-100 [facility] Comment on above: ADA recommended refe rence rangeRandom Glucose Reference Range is dependent on time and content of last meal. Glucose of more than 200 mg/dL in a nonstressed, ambulatory subject supports the diagnosis of Diabetes Mellitus. Serum or plasma potassium me asurement (moles/volume)Ordered By: Johann Dolan on 05-05-2022 Potassium [Moles/Vol] 4.7 mmol/L 3.5-5.1 [facility] Serum or plasma sodium measu rement (moles/volume)Ordered By: Johann Dolan on 05-05-2022 Sodium [Moles/Vol] 132 mmol/L 136-146 [facility] Serum or plasma total biliru bin measurement (mass/volume)Ordered By: Johann Dolan on 05-05-2022 Bilirubin [Mass/Vol] 0.6 mg/dL 0.3-1.2 [facility] Serum or plasma total carbon dioxide measurement (moles/volume)Ordered By: Johann Dolan on 05-05-2022 CO2 [Moles/Vol] 25.4 mmol/L 22.0-30.0 [facility] Serum or plasma urea nitroge n measurement (mass/volume)Ordered By: Johann Dolan on 05-05-2022 Urea nitrogen [Mass/Vol] 12 mg/dL 9- [facility] Serum speckled pattern antin uclear antibody (LUIS ENRIQUE) titerOrdered By: Johann Dolan on 05-05-2022 Speckled nuclear Ab pattern (S) [Titer] 1:80 . [facility] Comment on above: ICAP nomenclature: A C-2,4,5,29 TSH DL <= 0.005 mIU/L QnOrde red By: Johann Dolan on 05-05-2022 TSH Qn 1.42 m[IU]/L 0.45-5.33 [facility] Thyroid Stimulating Hormoneo n 05-05-2022 TSH Qn 1.42 m[IU]/L Normal 0.45-5.33 [facility] Comment on above: Result Comment: PERF ORMED BY: [facility] [address] [place] [address] PATHOLOGIST RESAWYER LILLY LOTT M.D. Performed By: #### C K, CRP, CMP, CBC, ESR, TSH3 #### [facility] [address] #### ALDOLASE #### [facility] , WBC Auto (Bld) [#/Vol]Ordere d By: Johann Dolan on 05-05-2022 WBC (Bld) [#/Vol] 7.5 10*3/uL 3.8-11.6 [facility] UA RANDOM W/MICROSCOPICon BACTERIA TRACE Abnormal NONE SEEN [facility] Comment on above: Performed By: #### L IPID, BMP, NA #### [facility] [address] [place] [address] [address] Dilip Cartagena Bilirubin Ql (U) Negative Normal NEGATIVE [facility] Comment on above: Performed By: #### L IPID, BMP, NA #### [facility] [address] [place] [address] [address] Dilip Cartagena CAST NONE SEEN Normal NONE SEEN [facility] Comment on above: Performed By: #### L IPID, BMP, NA #### [facility] [address] [place] [address] Dr. Dilip Cartagena Clarity (U) CLEAR Normal CLEAR [facility] Comment on above: Performed By: #### L IPID, BMP, NA #### [facility] [address] [place] [address] [address] Dilip Cartagena Color (U) DK. ORANGE Abnormal YELLOW [facility] Comment on above: Performed By: #### L IPID, BMP, NA #### [facility] [address] [place] [address] Dr. Dilip Cartagena Crystals LM Nom (Urine sed) NONE SEEN Normal NONE SEEN [facility] Comment on above: Performed By: #### L IPID, BMP, NA #### [facility] [address] [place] [address] Dr. Dilip Cartagena Epithelial cells LM Ql (Urine sed) RARE Normal NONE SEEN /RARE [facility] Comment on above: Performed By: #### L IPID, BMP, NA #### [facility] [address] [place] [address] Dr. Dilip Cartagena Glucose Ql (U) Negative Normal NEGATIVE [facility] Comment on above: Performed By: #### L IPID, BMP, NA #### [facility] [address] [place] [address] Dr. Dilip Cartagena Hemoglobin Ql (U) Negative Normal NEGATIVE [facility] Comment on above: Performed By: #### L IPID, BMP, NA #### [facility] [address] [place] [address] Dr. Dilip Cartagena Ketones Ql (U) Negative Normal NEGATIVE [facility] Comment on above: Performed By: #### L IPID, BMP, NA #### [facility] [address] [place] [address] Dr. Dilip Cartagena LEUKOCYTES TRACE Abnormal NEGATIVE [facility] Comment on above: Performed By: #### L IPID, BMP, NA #### [facility] [address] [place] [address] Dr. Dilip Cartagena MUCOUS NONE SEEN Normal NONE SEEN [facility] Comment on above: Performed By: #### L IPID, BMP, NA #### [facility] [address] [place] [address] Dr. Dilip Cartagena Nitrite Ql (U) Positive Abnormal NEGATIVE [facility] Comment on above: Performed By: #### L IPID, BMP, NA #### [facility] [address] [place] [address] Dr. Dilip Cartagena pH (U) 7.5 [pH] Normal 5-9 [facility] Comment on above: Performed By: #### L IPID, BMP, NA #### [facility] [address] [place] [address] Dr. Dilip Cartagena RBC 0-2 Normal 0-2 [facility] Comment on above: Performed By: #### L IPID, BMP, NA #### [facility] [address] [place] [address] Dr. Dilip Cartagena SPEC GRAVITY <=1.005 Abnormal 1.005-<=1. 025 [facility] Comment on above: Performed By: #### L IPID, BMP, NA #### [facility] [address] [place] [address] Dr. Dilip Cartagena UA PROTEIN Negative Normal NEGATIVE/ TRACE [facility] Comment on above: Performed By: #### L IPID, BMP, NA #### [facility] [address] [place] [address] Dr. Dilip Cartagena Urobilinogen Qn (U) 1.0 {Hallie'U}/dL Normal 0.2 - 1. 0 [facility] Comment on above: Performed By: #### L IPID, BMP, NA #### [facility] [address] [place] [address] Dr. Dilip Cartagena WBC 0-2 Abnormal NONE SEEN [facility] Comment on above: Performed By: #### L IPID, BMP, NA #### [facility] [address] [place] [address] [address] Dilip Cartagena CKMBon 02-25-2022 CK.MB [Mass/Vol] 194.45 ng/mL Critically high <=3.60 [facility] Comment on above: Performed By: #### L IPID, BMP, NA #### [facility] [address] [place] [address] Dr. Dilip Cartagena CPKon 02-25-2022 CK [Catalytic activity/Vol] 2549 U/L Critically high 26-192 [facility] Comment on above: Performed By: #### L IPID, BMP, NA #### [facility] [address] [place] [address] Dr. Dilip Cartagena GLYCOHEMOGLOBIN A1Con 2021 ADA RECOMMENDATION SEE BELOW Normal [facility] Comment on above: Result Comment: ADA RECOMMENDED LIMIT 4.0 - 6.0 ADA THERAPEUTIC TARGET < 7.0 ACTION SUGGESTED > 7.0 Performed By: #### U RCX #### [facility] [address] [place] [address] Dr. Dilip Cartagena Glucose [Mass/Vol] 143 mg/dL Normal [facility] Comment on above: Performed By: #### U RCX #### [facility] [address] [place] [address] Dr. Dilip Cartagena HbA1c (Bld) [Mass fraction] 6.6 % Critically high 4.5-6.2 [facility] Comment on above: Performed By: #### U RCX #### [facility] [address] [place] [address] Dr. Dilip Cartagena MYOGLOBINon 02-25-2022 REESE 1013 ng/mL Critically high 9-82 [facility] Comment on above: Performed By: #### L IPID, BMP, NA #### [facility] [address] [place] [address] Dr. Dilip Cartagena PROF CHEM 8 (BAS METB)on Anion gap [Moles/Vol] 10.3 mmol/L Normal [facility] Comment on above: Performed By: #### L IPID, BMP, NA #### [facility] [address] [place] [address] [address] Dilip Cartagena Calcium [Mass/Vol] 9.5 mg/dL Normal 8.5-10.1 [facility] Comment on above: Performed By: #### L IPID, BMP, NA #### [facility] [address] [place] [address] [address] Dilip Cartagena Chloride [Moles/Vol] 101 mmol/L Normal 98-107 [facility] Comment on above: Performed By: #### L IPID, BMP, NA #### [facility] [address] [place] [address] [address] Dilip Cartagena CO2 [Moles/Vol] 29.1 mmol/L Normal 21.0-32.0 [facility] Comment on above: Performed By: #### L IPID, BMP, NA #### [facility] [address] [place] [address] Dr. Dilip Cartagena Creatinine [Mass/Vol] 0.66 mg/dL Normal 0.55-1.02 [facility] Comment on above: Performed By: #### L IPID, BMP, NA #### [facility] [address] [place] [address] Dr. Dilip Cartagena EGFR-AF FILIPINO >60 Normal >=60 [facility] Comment on above: Performed By: #### L IPID, BMP, NA #### [facility] [address] [place] [address] Dr. Dilip Cartagena EGFR-NON AF FILIPINO >60 Normal >=60 [facility] Comment on above: Performed By: #### L IPID, BMP, NA #### [facility] [address] [place] [address] Dr. Dilip Cartagena Glucose [Mass/Vol] 147 mg/dL Critically high 74-106 [facility] Comment on above: Performed By: #### L IPID, BMP, NA #### [facility] [address] [place] [address] Dr. Dilip Cartagena Potassium [Moles/Vol] 4.4 mmol/L Normal 3.5-5.1 [facility] Comment on above: Performed By: #### L IPID, BMP, NA #### [facility] [address] [address] [address] Dilip Cartagena Sodium [Moles/Vol] 136 mmol/L Normal 136-145 [facility] Comment on above: Performed By: #### L IPID, BMP, NA #### [facility] [address] [address] [address] Dilip Cartagena Urea nitrogen [Mass/Vol] 17.0 mg/dL Normal 7.0-18.0 [facility] Comment on above: Performed By: #### L IPID, BMP, NA #### [facility] [address] [address] [address] Dilip Cartagena Urea nitrogen/Creatinine [Mass ratio] 25.8 mg/mg Normal [facility] Comment on above: Performed By: #### L IPID, BMP, NA #### [facility] [address] [place] [address] Dr. Dilip Cartagena US BEV DOP LEG LTon 02-26-20 US BEV DOP LEG LT EXAMINATION: US [...] ERIC BERRY Date: 2022-02-25 15:50 Normal [facility] CULTURE URINEon 02-11-2022 CULTURE URINE Culture Observations : LIGHT GROWTH OF MIXED GENITAL JAVON. NO POTENTIAL PATHOGENS SEEN. Normal [facility] Comment on above: Performed By: #### U RCX #### [facility] [address] [place] [address] Dr. Dilip Cartagena UA RANDOM W/MICROSCOPICon BACTERIA TRACE Abnormal NONE SEEN [facility] Comment on above: Performed By: #### L IPID, BMP, NA #### [facility] [address] [place] [address] Dr. Dilip Cartagena Bilirubin Ql (U) Negative Normal NEGATIVE [facility] Comment on above: Performed By: #### L IPID, BMP, NA #### [facility] [address] [place] [address] Dr. Dilip Cartagena CAST NONE SEEN Normal NONE SEEN [facility] Comment on above: Performed By: #### L IPID, BMP, NA #### [facility] [address] [place] [address] Dr. Dilip Cartagena Clarity (U) CLEAR Normal CLEAR [facility] Comment on above: Performed By: #### L IPID, BMP, NA #### [facility] [address] [place] [address] Dr. Dilip Cartagena Color (U) DK. ORANGE Abnormal YELLOW [facility] Comment on above: Performed By: #### L IPID, BMP, NA #### [facility] [address] [place] [address] Dr. Dilip Cartagena Crystals LM Nom (Urine sed) NONE SEEN Normal NONE SEEN [facility] Comment on above: Performed By: #### L IPID, BMP, NA #### [facility] [address] [place] [address] Dr. Dilip Cartagena Epithelial cells LM Ql (Urine sed) FEW Abnormal NONE SEEN /RARE [facility] Comment on above: Performed By: #### L IPID, BMP, NA #### [facility] [address] [place] [address] Dr. Dilip Cartagena Glucose Ql (U) Negative Normal NEGATIVE [facility] Comment on above: Performed By: #### L IPID, BMP, NA #### [facility] [address] [place] [address] Dr. Dilip Cartagena Hemoglobin Ql (U) Negative Normal NEGATIVE [facility] Comment on above: Performed By: #### L IPID, BMP, NA #### [facility] [address] [place] [address] Dr. Dilip Cartagena Ketones Ql (U) Negative Normal NEGATIVE [facility] Comment on above: Performed By: #### L IPID, BMP, NA #### [facility] [address] [place] [address] Dr. Dilip Cartagena LEUKOCYTES Negative Normal NEGATIVE [facility] Comment on above: Performed By: #### L IPID, BMP, NA #### [facility] [address] [place] [address] Dr. Dilip Cartagena MUCOUS NONE SEEN Normal NONE SEEN [facility] Comment on above: Performed By: #### L IPID, BMP, NA #### [facility] [address] [place] [address] Dr. Dilip Cartagena Nitrite Ql (U) Positive Abnormal NEGATIVE [facility] Comment on above: Performed By: #### L IPID, BMP, NA #### [facility] [address] [place] [address] Dr. Dilip Cartagena pH (U) 7.0 [pH] Normal 5-9 [facility] Comment on above: Performed By: #### L IPID, BMP, NA #### [facility] [address] [place] [address] Dr. Dilip Cartagena RBC 0-2 Normal 0-2 [facility] Comment on above: Performed By: #### L IPID, BMP, NA #### [facility] [address] [place] [address] Dr. Dilip Cartagena SPEC GRAVITY 1.010 Normal 1.005-<=1. 025 [facility] Comment on above: Performed By: #### L IPID, BMP, NA #### [facility] [address] [place] [address] Dr. Dilip Cartagena UA PROTEIN Negative Normal NEGATIVE/ TRACE [facility] Comment on above: Performed By: #### L IPID, BMP, NA #### [facility] [address] [place] [address] Dr. Dilip Cartagena Urobilinogen Qn (U) 1.0 {Hallie'U}/dL Normal 0.2 - 1. 0 [facility] Comment on above: Performed By: #### L IPID, BMP, NA #### [facility] [address] [place] [address] Dr. Dilip Cartagena WBC 0-2 Abnormal NONE SEEN [facility] Comment on above: Performed By: #### L IPID, BMP, NA #### [facility] [address] [place] [address] Dr. Dilip Cartagena LUIS ENRIQUE by IFAon 02-03-2022 Antinuclear Antibodies, IFA Positive Abnormal [facility] Comment on above: Result Comment: Nega tive <1:80 Borderline 1:80 Positive >1:80 Performed By: #### U RCX #### [facility] [address] [place] [address] Dr. Dilip Cartagena Centriole Pattern Normal [facility] Comment on above: Performed By: #### U RCX #### [facility] [address] [place] [address] Dr. Dilip Cartagena Centromere Pattern Normal [facility] Comment on above: Performed By: #### U RCX #### [facility] [address] [place] [address] Dr. Dilip Cartagena Homogeneous Pattern 1:80 Normal [facility] Comment on above: Result Comment: ICAP nomenclature: AC-1 Performed By: #### U RCX #### [facility] [address] [place] [address] Dr. Dilip Cartagena Midbody Pattern Normal [facility] Comment on above: Performed By: #### U RCX #### [facility] [address] [place] [address] Dr. Dilip Cartagena Note: Comment Normal [facility] Comment on above: Result Comment: For [...] titers Nucleosomes, Histones Drug-induced SLE Speckled Sm, EMBALMER ASSISTANT, SCL-70, SLE,MCTD,PSS (diffuse form), SS-A/SS-B Sjogrens Nucleolar SCL-70, PM-1/SCL High titers Scleroderma, PM/DM Centromere Centromere PSS (limited form) w/Crest syndrome variable Nuclear Dot [id number] Primary Biliary Cirrhosis Nuclear GP210, Primary Biliary Cirrhosis Membrane ban A,B,C Performed By: #### U RCX #### [facility] [address] [address] [address] Dilip Cartagena Nuclear Dot Pattern Normal [facility] Comment on above: Performed By: #### U RCX #### [facility] [address] [address] [address] Dilip Cartagena Nuclear Membrane Pattern Normal [facility] Comment on above: Performed By: #### U RCX #### [facility] [address] [address] [address] Dilip Cartagena Nucleolar Pattern Normal [facility] Comment on above: Performed By: #### U RCX #### [facility] [address] [address] [address] Dilip Cartagena PCNA Pattern Normal [facility] Comment on above: Performed By: #### U RCX #### [facility] [address] [place] [address] Dr. Dilip Cartagena Speckled Pattern Normal [facility] Comment on above: Performed By: #### U RCX #### [facility] [address] [place] [address] Dr. Dilip Cartagena Spindle Apparatus Pattern Normal [facility] Comment on above: Performed By: #### U RCX #### [facility] [address] [place] [address] Dr. Dilip Cartagena ANTISTREPTOLYSIN O AB (ASO)o n 01-31-2022 Antistreptolysin O Ab 25.1 IU/mL Normal 0.0-200.0 [facility] Comment on above: Performed By: #### L IPID, BMP, NA #### [facility] [address] [place] [address] Dr. Dilip Cartagena RHEUMATOID FACTORon 02-01-20 RA Latex Turbid. 10.1 IU/mL Normal <14.0 [facility] Comment on above: Performed By: #### U RCX #### [facility] [address] [place] [address] Dr. Dilip Cartagena CKMBon 01-30-2022 CK.MB [Mass/Vol] 227.84 ng/mL Critically high <=3.60 T [facility] Comment on above: Performed By: #### L IPID, BMP, NA #### [facility] [address] [address] [address] Dilip Cartagena CPKon 01-30-2022 CK [Catalytic activity/Vol] 3698 U/L Critically high 26-192 [facility] Comment on above: Performed By: #### L IPID, BMP, NA #### [facility] [address] [place] [address] Dr. Dilip Cartagena CRPon 01-30-2022 CRP [Mass/Vol] mg/L Normal <=1.0 [facility] Comment on above: Performed By: #### L IPID, BMP, NA #### [facility] [address] [place] [address] Dr. Dilip Cartagena MYOGLOBINon 01-30-2022 REESE 2773 ng/mL Critically high 9-82 [facility] Comment on above: Performed By: #### L IPID, BMP, NA #### [facility] [address] [place] [address] Dr. Dilip Cartagena SED RATE WESTERGRENon 2021 SED RATE 20 mm/hr Normal <=30 [facility] Comment on above: Performed By: #### U RCX #### [facility] [address] [place] [address] Dr. Dilip Cartagena URIC ACID SERUMon 01-30-2022 Urate [Mass/Vol] 5.3 mg/dL Normal 2.6-6.0 [facility] Comment on above: Performed By: #### L IPID, BMP, NA #### [facility] [address] [place] [address] Dr. Dilip Cartagena ALDOLASEon 01-28-2022 Aldolase 27.1 U/L Critically high 3.3-10.3 [facility] Comment on above: Performed By: #### U RCX #### [facility] [address] [place] [address] Dr. Dilip Cartagena CKMBon 01-26-2022 CK.MB [Mass/Vol] 244.24 ng/mL Critically high <=3.60 T [facility] Comment on above: Performed By: #### U RCX #### [facility] [address] [place] [address] Dr. Dilip Cartagena CPKon 01-26-2022 CK [Catalytic activity/Vol] 4430 U/L Critically high 26-192 [facility] Comment on above: Performed By: #### L IPID, BMP, NA #### [facility] [address] [place] [address] Dr. Dilip Cartagena CREATININEon 01-26-2022 Creatinine [Mass/Vol] 0.76 mg/dL Normal 0.55-1.02 [facility] Comment on above: Performed By: #### L IPID, BMP, NA #### [facility] [address] [place] [address] Dr. Dilip Cartagena EGFR-AF FILIPINO >60 Normal >=60 [facility] Comment on above: Performed By: #### L IPID, BMP, NA #### [facility] [address] [place] [address] Dr. Dilip Cartagena EGFR-NON AF FILIPINO >60 Normal >=60 [facility] Comment on above: Performed By: #### L IPID, BMP, NA #### [facility] [address] [place] [address] Dr. Dilip Cartagena MYOGLOBINon 01-26-2022 REESE 2514 ng/mL Critically high 9-82 [facility] Comment on above: Performed By: #### L IPID, BMP, NA #### [facility] [address] [place] [address] Dr. Dilip Cartagena PROF CHEM 8 (BAS METB)on Anion gap [Moles/Vol] 9.4 mmol/L Normal [facility] Comment on above: Performed By: #### L IPID, BMP, NA #### [facility] [address] [place] [address] Dr. Dilip Cartagena Calcium [Mass/Vol] 8.8 mg/dL Normal 8.5-10.1 [facility] Comment on above: Performed By: #### L IPID, BMP, NA #### [facility] [address] [address] [address] Dilip Cartagena Chloride [Moles/Vol] 104 mmol/L Normal 98-107 [facility] Comment on above: Performed By: #### L IPID, BMP, NA #### [facility] [address] [place] [address] Dr. Dilip Cartagena CO2 [Moles/Vol] 27.4 mmol/L Normal 21.0-32.0 [facility] Comment on above: Performed By: #### L IPID, BMP, NA #### [facility] [address] [place] [address] Dr. Dilip Cartagena Glucose [Mass/Vol] 141 mg/dL Critically high 74-106 [facility] Comment on above: Performed By: #### L IPID, BMP, NA #### [facility] [address] [place] [address] Dr. Dilip Cartagena Potassium [Moles/Vol] 4.8 mmol/L Normal 3.5-5.1 [facility] Comment on above: Performed By: #### L IPID, BMP, NA #### [facility] [address] [place] [address] Dr. Dilip Cartagena Sodium [Moles/Vol] 136 mmol/L Normal 136-145 [facility] Comment on above: Performed By: #### L IPID, BMP, NA #### [facility] [address] [place] [address] Dr. Dilip Cartagena Urea nitrogen [Mass/Vol] 15.0 mg/dL Normal 7.0-18.0 [facility] Comment on above: Performed By: #### L IPID, BMP, NA #### [facility] [address] [place] [address] Dr. Dilip Cartagena Urea nitrogen/Creatinine [Mass ratio] 19.7 mg/mg Normal [facility] Comment on above: Performed By: #### L IPID, BMP, NA #### [facility] [address] [place] [address] Dr. Dilip Cartagena US BEV DOP LEG RTon 01-27-20 US BEV DOP LEG RT EXAMINATION: US BEV DOP LEG RT HISTORY: Pain in right leg COMPARISON: No relevant comparison available. FINDINGS: REGION: Right lower extremity THROMBI: None. COMPRESSIBILITY: Normal compressibility. FLOW: Normal waveform and antegrade flow between 5 and 20 cm/s. OTHER: None. IMPRESSION: 1. No deep vein thrombus within the right lower extremity. Electronically authenticated by: ERIC BERRY Date: 2022-01-26 18:51 Normal [facility] CULTURE BLOODon 01-21-2022 Microscopic examination of [...] F Oxacillin 1 R F Normal [facility] Comment on above: Performed By: #### L IPID, BMP, NA #### [facility] [address] [place] [address] Dr. Dilip Cartagena BNPon 01-17-2022 Natriuretic peptide B (Bld) [Mass/Vol] 792.0 pg/mL Normal <=1,800.0 [facility] Comment on above: Performed By: #### P OCGLUC #### [facility] [address] [place] [address] Dr. Dilip Cartagena CARDIAC JON ADMITon 022 CK [Catalytic activity/Vol] 2872 U/L Critically high 26-192 [facility] Comment on above: Performed By: #### U RCX #### [facility] [address] [place] [address] Dr. Dilip Cartagena CK.MB [Mass/Vol] 143.67 ng/mL Critically high <=3.60 T [facility] Comment on above: Performed By: #### U RCX #### [facility] [address] [place] [address] Dr. Dilip Cartagena HSTROP 25.6 pg/mL Normal 4.0-51.3 [facility] Comment on above: Result Comment: CUT- OFF POINTS HAVE BEEN ESTABLISHED BASED ON THE FOURTH UNIVERSAL DEFINITIONS OF MYOCARDIAL INFARCTION. THE UPPER REFERENCE LIMIT (URL) OF TROPONIN, DEFINED THE 99TH PERCENTILE OF cTnI DISTRIBUTION IN A REFERENCE POPULATION, HAS BEEN CONFIRMED THE DECISION THRESHOLD FOR [place] DIAGNOSIS. Performed By: #### U RCX #### [facility] [address] [place] [address] Dr. Dilip Cartagena REESE 1364 ng/mL Critically high 9-82 [facility] Comment on above: Performed By: #### U RCX #### [facility] [address] [place] [address] Dr. Dilip Cartagena CBC AUTO DIFFon 01-17-2022 BASO # 0.0 103/ul Normal 0.0-0.1 [facility] Comment on above: Performed By: #### U RCX #### [facility] [address] [place] [address] Dr. Dilip Cartagena Basophils/100 WBC (Bld) 0.4 % Normal 0.2-2.0 [facility] Comment on above: Performed By: #### U RCX #### [facility] [address] [place] [address] Dr. Dilip Cartagena EO # 0.1 103/ul Normal 0.0-0.7 [facility] Comment on above: Performed By: #### U RCX #### [facility] [address] [place] [address] Dr. Dilip Cartagena Eosinophils/100 WBC (Bld) 1.8 % Normal 0.9-7.0 [facility] Comment on above: Performed By: #### U RCX #### [facility] [address] [place] [address] Dr. Dilip Cartagena Erythrocyte distribution width (RBC) [Ratio] 14.0 % Normal 11.0-15.0 [facility] Comment on above: Performed By: #### U RCX #### [facility] [address] [place] [address] Dr. Dilip Cartagena Hematocrit (Bld) [Volume fraction] 36.0 % Normal 36.0-48.0 [facility] Comment on above: Performed By: #### U RCX #### [facility] [address] [place] [address] Dr. Dilip Cartagena Hemoglobin (Bld) [Mass/Vol] 11.4 g/dL Critically low 12.0-16.0 [facility] Comment on above: Performed By: #### U RCX #### [facility] [address] [place] [address] Dr. Dilip Cartagena IG # 0.06 10e3/ul Critically high 0.00-0.03 [facility] Comment on above: Performed By: #### U RCX #### [facility] [address] [place] [address] Dr. Dilip Cartagena IG % 0.9 % Critically high 0.0-0.5 [facility] Comment on above: Performed By: #### U RCX #### [facility] [address] [place] [address] Dr. Dilip Cartagena LYMPH # 2.1 103/ul Normal 1.2-3.8 [facility] Comment on above: Performed By: #### U RCX #### [facility] [address] [place] [address] Dr. Dilip Cartagena Lymphocytes/100 WBC (Bld) 30.6 % Normal 20.5-60.0 [facility] Comment on above: Performed By: #### U RCX #### [facility] [address] [place] [address] Dr. Dilip Cartagena MANUAL DIFF REQ NO Normal [facility] Comment on above: Performed By: #### U RCX #### [facility] [address] [place] [address] Dr. Dilip Cartagena MCH (RBC) [Entitic mass] 30.4 pg Normal 26.7-34.0 [facility] Comment on above: Performed By: #### U RCX #### [facility] [address] [place] [address] Dr. Dilip Cartagena MCHC (RBC) [Mass/Vol] 31.7 g/dL Normal 29.9-35.2 [facility] Comment on above: Performed By: #### U RCX #### [facility] [address] [place] [address] Dr. Dilip Cartagena MCV (RBC) [Entitic vol] 96.0 fL Normal 81.0-99.0 [facility] Comment on above: Performed By: #### U RCX #### [facility] [address] [place] [address] Dr. Dilip Cartagena MONO # 0.5 103/ul Normal 0.3-0.8 [facility] Comment on above: Performed By: #### U RCX #### [facility] [address] [place] [address] Dr. Dilip Cartagena Monocytes/100 WBC (Bld) 7.3 % Normal 1.7-12.0 [facility] Comment on above: Performed By: #### U RCX #### [facility] [address] [place] [address] Dr. Dilip Cartagena NEUT # 4.0 103/ul Normal 1.4-6.5 [facility] Comment on above: Performed By: #### U RCX #### [facility] [address] [place] [address] Dr. Dilip Cartagena Neutrophils/100 WBC (Bld) 59.0 % Normal 43.0-75.0 [facility] Comment on above: Performed By: #### U RCX #### [facility] [address] [place] [address] Dr. Dilip Cartagena Platelet mean volume (Bld) [Entitic vol] 9.2 fL Critically low 9.5-13.5 [facility] Comment on above: Performed By: #### U RCX #### [facility] [address] [place] [address] Dr. Dilip Cartagena PLT 285 103/ul Normal 150-450 [facility] Comment on above: Performed By: #### U RCX #### [facility] [address] [place] [address] Dr. Dilip Cartagena RBC 3.75 106/ul Critically low 4.20-5.40 [facility] Comment on above: Performed By: #### U RCX #### [facility] [address] [place] [address] Dr. Dilip Cartagena WBC 6.7 103/ul Normal 4.0-11.0 [facility] Comment on above: Performed By: #### U RCX #### [facility] [address] [place] [address] Dr. Dilip Cartagena POINT OF CARE GLUCOSEon 01-03 Glucose [Mass/Vol] 137 mg/dL Critically high 74-106 [facility] Comment on above: Performed By: #### L IPID, BMP, NA #### [facility] [address] [place] [address] Dr. Dilip Cartagena Glucose [Mass/Vol] 125 mg/dL Critically high 74-106 [facility] Comment on above: Performed By: #### U RCX #### [facility] [address] [place] [address] Dr. Dilip Cartagena PROF 14(COMP METB)on 01-17- 022 Albumin [Mass/Vol] 2.9 g/dL Critically low 3.4-5.0 [facility] Comment on above: Performed By: #### U RCX #### [facility] [address] [place] [address] Dr. Dilip Cartagena Albumin/Globulin [Mass ratio] 0.9 {ratio} Normal [facility] Comment on above: Performed By: #### U RCX #### [facility] [address] [place] [address] Dr. Dilip Cartagena ALP [Catalytic activity/Vol] 47 U/L Normal 46-116 [facility] Comment on above: Performed By: #### U RCX #### [facility] [address] [address] [address] Dilip Cartagena ALT [Catalytic activity/Vol] 138 U/L Critically high 14-59 [facility] Comment on above: Performed By: #### U RCX #### [facility] [address] [address] [address] Dilip Cartagena Anion gap [Moles/Vol] 11.4 mmol/L Normal [facility] Comment on above: Performed By: #### U RCX #### [facility] [address] [address] [address] Dilip Cartagena AST [Catalytic activity/Vol] 70 U/L Critically high 15-37 [facility] Comment on above: Performed By: #### U RCX #### [facility] [address] [address] [address] Dilip Cartagena Bilirubin [Mass/Vol] 0.4 mg/dL Normal 0.2-1.0 [facility] Comment on above: Performed By: #### U RCX #### [facility] [address] [address] [address] Dilip Cartagena Calcium [Mass/Vol] 8.4 mg/dL Critically low 8.5-10.1 [facility] [facility] Comment on above: Performed By: #### U RCX #### [facility] [address] [address] [address] Dilip Cartagena Chloride [Moles/Vol] 103 mmol/L Normal 98-107 [facility] Comment on above: Performed By: #### U RCX #### [facility] [address] [address] [address] Dilip Cartagena CO2 [Moles/Vol] 23.7 mmol/L Normal 21.0-32.0 [facility] Comment on above: Performed By: #### U RCX #### [facility] [address] [address] [address] Dilip Cartagena Creatinine [Mass/Vol] 0.66 mg/dL Normal 0.55-1.02 [facility] Comment on above: Performed By: #### U RCX #### [facility] [address] [address] [address] Dilip Cartagena EGFR-AF FILIPINO >60 Normal >=60 [facility] Comment on above: Performed By: #### U RCX #### [facility] [address] [address] [address] Dilip Cartagena EGFR-NON AF FILIPINO >60 Normal >=60 [facility] Comment on above: Performed By: #### U RCX #### [facility] [address] [address] [address] Dilip Cartagena Globulin (S) [Mass/Vol] 3.2 g/dL Normal [facility] Comment on above: Performed By: #### U RCX #### [facility] [address] [place] [address] Dr. Dilip Cartagena Glucose [Mass/Vol] 111 mg/dL Critically high 74-106 T [facility] Comment on above: Performed By: #### U RCX #### [facility] [address] [address] [address] Dilip Cartagena Potassium [Moles/Vol] 5.1 mmol/L Normal 3.5-5.1 [facility] Comment on above: Performed By: #### U RCX #### [facility] [address] [place] [address] Dr. Dilip Cartagena Protein [Mass/Vol] 6.1 g/dL Critically low 6.4-8.2 Th [facility] Comment on above: Performed By: #### U RCX #### [facility] [address] [place] [address] Dr. Dilip Cartagena Sodium [Moles/Vol] 133 mmol/L Critically low 136-145 [facility] Comment on above: Performed By: #### U RCX #### [facility] [address] [address] [address] Dilip Cartagena Urea nitrogen [Mass/Vol] 15.0 mg/dL Normal 7.0-18.0 [facility] Comment on above: Performed By: #### U RCX #### [facility] [address] [place] [address] Dr. Dilip Cartagena Urea nitrogen/Creatinine [Mass ratio] 22.7 mg/mg Normal [facility] Comment on above: Performed By: #### U RCX #### [facility] [address] [place] [address] Dr. Dilip Cartagena T3, TOTAL (TRIIODOTHYRONINE) on 01-17-2022 T3, TOTAL 105 ng/dL Normal 71-180 [facility] Comment on above: Performed By: #### L IPID, BMP, NA #### [facility] [address] [place] [address] Dr. Dilip Cartagena AMYLASEon 01-16-2022 Amylase [Catalytic activity/Vol] 42 U/L Normal 25-115 [facility] Comment on above: Performed By: #### L IPID, BMP, NA #### [facility] [address] [place] [address] Dr. Dilip Cartagena Amylase [Catalytic activity/Vol] 55 U/L Normal 25-115 [facility] Comment on above: Performed By: #### U RCX #### [facility] [address] [place] [address] Dr. Dilip Cartagena Amylase [Catalytic activity/Vol] 52 U/L Normal 25-115 [facility] Comment on above: Performed By: #### P OCGLUC #### [facility] [address] [place] [address] Dr. Dilip Cartagena BLOOD CULTURE ID PANELon A. baumannii Not detected Normal NOT DETECTED [facility] Comment on above: Performed By: #### L IPID, BMP, NA #### [facility] [address] [place] [address] Dr. Dilip Cartagena Bacteriodes fragilis Not detected Normal NOT DETECTED [facility] Comment on above: Performed By: #### L IPID, BMP, NA #### [facility] [address] [place] [address] Dr. Dilip Cartagena BCID CONTROLS PASSED Normal [facility] Comment on above: Performed By: #### L IPID, BMP, NA #### [facility] [address] [address] [address] Dilip Cartagena BCIDBTHD BLOOD CULTURE BOTTLE INFORMATION Normal [facility] Comment on above: Performed By: #### L IPID, BMP, NA #### [facility] [address] [address] [address] Dilip Cartagena BCIDHD1 ANTIMICROBIAL RESIST ANCE GENES [facility] Comment on above: Performed By: #### L IPID, BMP, NA #### [facility] [address] [place] [address] Dr. Dilip Cartagena BCIDHD2 SEE BELOW [facility] Comment on above: Result Comment: Note : Antimicrobial resitance can occur via multiple mechanisms. A Not Detected result for the [employer] antomicrobial resistance gene assays does not indicate antimicrobial susceptibility. Subculturing is required for species identification and susceptibility testing of isolates. Performed By: #### L IPID, BMP, NA #### [facility] [address] [place] [address] Dr. Dilip Cartagena BCIDHD3 Positive [facility] Comment on above: Performed By: #### L IPID, BMP, NA #### [facility] [address] [place] [address] Dr. Dilip Cartagena BCIDHD4 Negative [facility] Comment on above: Performed By: #### L IPID, BMP, NA #### [facility] [address] [place] [address] Dr. Dilip Cartagena BCIDHD5 YEAST Normal [facility] Comment on above: Performed By: #### L IPID, BMP, NA #### [facility] [address] [place] [address] Dr. Dilip Cartagena Bottle Set: Set 1 [facility] Comment on above: Performed By: #### L IPID, BMP, NA #### [facility] [address] [place] [address] Dr. Dilip Cartagena Bottle: Aerobic Normal [facility] Comment on above: Performed By: #### L IPID, BMP, NA #### [facility] [address] [place] [address] Dr. Dilip aCrtagena C. neoformans/gattii Not detected Normal NOT DETECTED [facility] Comment on above: Performed By: #### L IPID, BMP, NA #### [facility] [address] [place] [address] Dr. Dilip Cartagena Neyda albicans Not detected Normal NOT DETECTED [facility] Comment on above: Performed By: #### L IPID, BMP, NA #### [facility] [address] [place] [address] Dr. Dilip Cartagena Neyda auris Not detected Normal NOT DETECTED [facility] Comment on above: Performed By: #### L IPID, BMP, NA #### [facility] [address] [place] [address] Dr. Dilip Cartagena Neyda glabrata Not detected Normal NOT DETECTED [facility] Comment on above: Performed By: #### L IPID, BMP, NA #### [facility] [address] [place] [address] Dr. Dilip Cartagena Neyda Krusei Not detected Normal NOT DETECTED [facility] Comment on above: Performed By: #### L IPID, BMP, NA #### [facility] [address] [place] [address] Dr. Dilip Cartagena Neyda Parapsilosis Not detected Normal NOT DETECTED [facility] Comment on above: Performed By: #### L IPID, BMP, NA #### [facility] [address] [place] [address] Dr. Dilip Cartagena Neyda Tropicalis Not detected Normal NOT DETECTED [facility] Comment on above: Performed By: #### L IPID, BMP, NA #### [facility] [address] [place] [address] Dr. Dilip Cartagena CTX-M Resistant Gene Not Applicable Normal NOT DETECTED [facility] Comment on above: Performed By: #### L IPID, BMP, NA #### [facility] [address] [place] [address] Dr. Dilip Cartagena E. Cloacae complex Not detected Normal NOT DETECTED [facility] Comment on above: Performed By: #### L IPID, BMP, NA #### [facility] [address] [place] [address] Dr. Dilip Cartagena E. faecalis Not detected Normal NOT DETECTED [facility] Comment on above: Performed By: #### L IPID, BMP, NA #### [facility] [address] [place] [address] Dr. Dilip Cartagena E. faecium Not detected Normal NOT DETECTED [facility] Comment on above: Performed By: #### L IPID, BMP, NA #### [facility] [address] [place] [address] Dr. Dilip Cartagena Enterobacteriaceae Not detected Normal NOT DETECTED [facility] Comment on above: Performed By: #### L IPID, BMP, NA #### [facility] [address] [place] [address] Dr. Dilip Cartagena Escherichia coli Not detected Normal NOT DETECTED [facility] Comment on above: Performed By: #### L IPID, BMP, NA #### [facility] [address] [place] [address] Dr. Dilip Cartagena H. influenzae Not detected Normal NOT DETECTED [facility] Comment on above: Performed By: #### L IPID, BMP, NA #### [facility] [address] [place] [address] Dr. Dilip Cartagena IMP Resistant Gene Not Applicable Normal NOT DETECTED [facility] Comment on above: Performed By: #### L IPID, BMP, NA #### [facility] [address] [place] [address] Dr. Dilip Cartagena K. oxytoca Not detected Normal NOT DETECTED [facility] Comment on above: Performed By: #### L IPID, BMP, NA #### [facility] [address] [place] [address] Dr. Dilip Cartagena K. pneumoniae Not detected Normal NOT DETECTED [facility] Comment on above: Performed By: #### L IPID, BMP, NA #### [facility] [address] [place] [address] Dr. Dilip Cartagena Klebsiella aerogenes Not detected Normal NOT DETECTED [facility] Comment on above: Performed By: #### L IPID, BMP, NA #### [facility] [address] [place] [address] Dr. Dilip Cartagena KPC Resistant Gene Not Applicable Normal NOT DETECTED [facility] Comment on above: Performed By: #### L IPID, BMP, NA #### [facility] [address] [place] [address] Dr. Dilip Cartagena List. monocytogenes Not detected Normal NOT DETECTED [facility] Comment on above: Performed By: #### L IPID, BMP, NA #### [facility] [address] [place] [address] Dr. Dilip Cartagena Mcr-1 Resistant Gene Not Applicable Normal NOT DETECTED [facility] Comment on above: Performed By: #### L IPID, BMP, NA #### [facility] [address] [place] [address] Dr. Dilip Cartagena mecA/C Not Applicable Normal NOT DETECTED [facility] Comment on above: Performed By: #### L IPID, BMP, NA #### [facility] [address] [place] [address] Dr. Dilip Cartagena mecA/C MREJ Not Applicable Normal NOT DETECTED [facility] Comment on above: Performed By: #### L IPID, BMP, NA #### [facility] [address] [place] [address] Dr. Dilip Cartagena N. meningitidis Not detected Normal NOT DETECTED [facility] Comment on above: Performed By: #### L IPID, BMP, NA #### [facility] [address] [place] [address] Dr. Dilip Cartagena NDM Resistant Gene Not Applicable Normal NOT DETECTED [facility] Comment on above: Performed By: #### L IPID, BMP, NA #### [facility] [address] [place] [address] Dr. Dilip Cartagena Oxa-48-like Not Applicable Normal NOT DETECTED [facility] Comment on above: Performed By: #### L IPID, BMP, NA #### [facility] [address] [place] [address] Dr. Dilip Cartagena Proteus Not detected Normal NOT DETECTED [facility] Comment on above: Performed By: #### L IPID, BMP, NA #### [facility] [address] [place] [address] Dr. Dilip Cartagena Pseud. aeruginosa Not detected Normal NOT DETECTED [facility] Comment on above: Performed By: #### L IPID, BMP, NA #### [facility] [address] [place] [address] Dr. Dilip Cartagena S. maltophilia Not detected Normal NOT DETECTED [facility] Comment on above: Performed By: #### L IPID, BMP, NA #### [facility] [address] [place] [address] Dr. Dilip Cartagena Salmonella Not detected Normal NOT DETECTED [facility] Comment on above: Performed By: #### L IPID, BMP, NA #### [facility] [address] [place] [address] Dr. Dilip Cartagena Seratia marcescens Not detected Normal NOT DETECTED [facility] Comment on above: Performed By: #### L IPID, BMP, NA #### [facility] [address] [place] [address] Dr. Dilip Cartagena Site: left arm Normal [facility] Comment on above: Performed By: #### L IPID, BMP, NA #### [facility] [address] [place] [address] Dr. Dilip Cartagena Staph. aureus Not detected Normal NOT DETECTED [facility] Comment on above: Performed By: #### L IPID, BMP, NA #### [facility] [address] [place] [address] Dr. Dilip Cartagena Staph. epidermidis Not detected Normal NOT DETECTED [facility] Comment on above: Performed By: #### L IPID, BMP, NA #### [facility] [address] [place] [address] Dr. Dilip Cartagena Staph. lugdunensis Not detected Normal NOT DETECTED [facility] Comment on above: Performed By: #### L IPID, BMP, NA #### [facility] [address] [place] [address] Dr. Dilip Cartagena Staphylococcus Detected Abnormal NOT DETECTED [facility] Comment on above: Performed By: #### L IPID, BMP, NA #### [facility] [address] [place] [address] Dr. Dilip Cartagena Strep. agalactiae Not detected Normal NOT DETECTED [facility] Comment on above: Performed By: #### L IPID, BMP, NA #### [facility] [address] [place] [address] Dr. Dilip Cartagena Strep. pneumoniae Not detected Normal NOT DETECTED [facility] Comment on above: Performed By: #### L IPID, BMP, NA #### [facility] [address] [place] [address] Dr. Dilip Cartagena Strep. pyogenes Not detected Normal NOT DETECTED [facility] Comment on above: Performed By: #### L IPID, BMP, NA #### [facility] [address] [place] [address] Dr. Dilip Cartagena Streptococcus Not detected Normal NOT DETECTED [facility] Comment on above: Performed By: #### L IPID, BMP, NA #### [facility] [address] [place] [address] Dr. Dilip Cartagena Kenyetta/Bere Resist. Gene Not Applicable Normal NOT DETECTED [facility] Comment on above: Performed By: #### L IPID, BMP, NA #### [facility] [address] [place] [address] Dr. Dilip Cartagena VIM Resistant Gene Not Applicable Normal NOT DETECTED [facility] Comment on above: Performed By: #### L IPID, BMP, NA #### [facility] [address] [place] [address] Dr. Dilip Cartagena BNPon 01-16-2022 Natriuretic peptide B (Bld) [Mass/Vol] 584.0 pg/mL Normal <=1,800.0 [facility] Comment on above: Performed By: #### P OCGLUC #### [facility] [address] [place] [address] Dr. Dilip Cartagena CARDIAC JON 3-6on 2 CK [Catalytic activity/Vol] 5303 U/L Critically high 26-192 [facility] Comment on above: Performed By: #### C MREP #### [facility] [address] [address] [address] Dilip Cartagena CK.MB [Mass/Vol] 280.92 ng/mL Critically high <=3.60 [facility] Comment on above: Performed By: #### C MREP #### [facility] [address] [address] [address] Dilip Cartagena HSTROP 20.1 pg/mL Normal 4.0-51.3 [facility] Comment on above: Result Comment: CUT- OFF POINTS HAVE BEEN ESTABLISHED BASED ON THE FOURTH UNIVERSAL DEFINITIONS OF MYOCARDIAL INFARCTION. THE UPPER REFERENCE LIMIT (URL) OF TROPONIN, DEFINED THE 99TH PERCENTILE OF cTnI DISTRIBUTION IN A REFERENCE POPULATION, HAS BEEN CONFIRMED THE DECISION THRESHOLD FOR [place] DIAGNOSIS. Performed By: #### C MREP #### [facility] [address] [address] [address] Dilip Cartagena CK [Catalytic activity/Vol] 6224 U/L Critically high 26-192 [facility] Comment on above: Performed By: #### U RCX #### [facility] [address] [address] [address] Dilip Cartagena CK.MB [Mass/Vol] 341.85 ng/mL Critically high <=3.60 [facility] Comment on above: Performed By: #### U RCX #### [facility] [address] [place] [address] Dr. Dilip Cartagena HSTROP 27.2 pg/mL Normal 4.0-51.3 [facility] Comment on above: Result Comment: CUT- OFF POINTS HAVE BEEN ESTABLISHED BASED ON THE FOURTH UNIVERSAL DEFINITIONS OF MYOCARDIAL INFARCTION. THE UPPER REFERENCE LIMIT (URL) OF TROPONIN, DEFINED THE 99TH PERCENTILE OF cTnI DISTRIBUTION IN A REFERENCE POPULATION, HAS BEEN CONFIRMED THE DECISION THRESHOLD FOR [place] DIAGNOSIS. Performed By: #### U RCX #### [facility] [address] [address] [address] Dilip Cartagena CARDIAC JON ADMITon 14-2 022 CK [Catalytic activity/Vol] 6161 U/L Critically high 26-192 [facility] Comment on above: Performed By: #### U RCX #### [facility] [address] [place] [address] Dr. Dilip Cartagena CK.MB [Mass/Vol] 314.21 ng/mL Critically high <=3.60 T [facility] Comment on above: Performed By: #### U RCX #### [facility] [address] [place] [address] Dr. Dilip Cartagena HSTROP 27.5 pg/mL Normal 4.0-51.3 [facility] Comment on above: Result Comment: CUT- OFF POINTS HAVE BEEN ESTABLISHED BASED ON THE FOURTH UNIVERSAL DEFINITIONS OF MYOCARDIAL INFARCTION. THE UPPER REFERENCE LIMIT (URL) OF TROPONIN, DEFINED THE 99TH PERCENTILE OF cTnI DISTRIBUTION IN A REFERENCE POPULATION, HAS BEEN CONFIRMED THE DECISION THRESHOLD FOR [place] DIAGNOSIS. Performed By: #### U RCX #### [facility] [address] [place] [address] Dr. Dilip Cartagena REESE 3384 ng/mL Critically high 9-82 [facility] Comment on above: Performed By: #### U RCX #### [facility] [address] [place] [address] Dr. Dilip Cartagena CBC AUTO DIFFon 01-16-2022 BASO # 0.0 103/ul Normal 0.0-0.1 [facility] Comment on above: Performed By: #### P OCGLUC #### [facility] [address] [place] [address] Dr. Dilip Cartagena Basophils/100 WBC (Bld) 0.3 % Normal 0.2-2.0 [facility] Comment on above: Performed By: #### P OCGLUC #### [facility] [address] [place] [address] Dr. Dilip Cartagena EO # 0.1 103/ul Normal 0.0-0.7 [facility] Comment on above: Performed By: #### P OCGLUC #### [facility] [address] [place] [address] Dr. Dilip Cartagena Eosinophils/100 WBC (Bld) 1.2 % Normal 0.9-7.0 [facility] Comment on above: Performed By: #### P OCGLUC #### [facility] [address] [place] [address] Dr. Dilip Cartagena Erythrocyte distribution width (RBC) [Ratio] 13.9 % Normal 11.0-15.0 [facility] Comment on above: Performed By: #### P OCGLUC #### [facility] [address] [place] [address] Dr. Dilip Cartagena Hematocrit (Bld) [Volume fraction] 40.2 % Normal 36.0-48.0 [facility] Comment on above: Performed By: #### P OCGLUC #### [facility] [address] [place] [address] Dr. Dilip Cartagena Hemoglobin (Bld) [Mass/Vol] 12.8 g/dL Normal 12.0-16.0 [facility] Comment on above: Performed By: #### P OCGLUC #### [facility] [address] [place] [address] Dr. Dilip Cartagena IG # 0.07 10e3/ul Critically high 0.00-0.03 [facility] Comment on above: Performed By: #### P OCGLUC #### [facility] [address] [place] [address] Dr. Dilip Cartagena IG % 0.7 % Critically high 0.0-0.5 [facility] Comment on above: Performed By: #### P OCGLUC #### [facility] [address] [place] [address] Dr. Dilip Cartagena LYMPH # 2.5 103/ul Normal 1.2-3.8 [facility] Comment on above: Performed By: #### P OCGLUC #### [facility] [address] [place] [address] Dr. Dilip Cartagena Lymphocytes/100 WBC (Bld) 26.2 % Normal 20.5-60.0 [facility] Comment on above: Performed By: #### P OCGLUC #### [facility] [address] [place] [address] Dr. Dilip Cartagena MANUAL DIFF REQ NO Normal [facility] Comment on above: Performed By: #### P OCGLUC #### [facility] [address] [place], [place] [id number] Dr. Dilip Cartagena MCH (RBC) [Entitic mass] 30.2 pg Normal 26.7-34.0 [facility] Comment on above: Performed By: #### P OCGLUC #### [facility] [address] [place] [address] Dr. Dilip Cartagena MCHC (RBC) [Mass/Vol] 31.8 g/dL Normal 29.9-35.2 [facility] Comment on above: Performed By: #### P OCGLUC #### [facility] [address] [place] [address] Dr. Dilip Cartagena MCV (RBC) [Entitic vol] 94.8 fL Normal 81.0-99.0 [facility] Comment on above: Performed By: #### P OCGLUC #### [facility] [address] [place] [address] Dr. Dilip Cartagena MONO # 0.6 103/ul Normal 0.3-0.8 [facility] Comment on above: Performed By: #### P OCGLUC #### [facility] [address] [place] [address] Dr. Dilip Cartagena Monocytes/100 WBC (Bld) 6.0 % Normal 1.7-12.0 [facility] Comment on above: Performed By: #### P OCGLUC #### [facility] [address] [place] [address] Dr. Dilip Cartagena NEUT # 6.1 103/ul Normal 1.4-6.5 [facility] Comment on above: Performed By: #### P OCGLUC #### [facility] [address] [place] [address] Dr. Dilip Cartagena Neutrophils/100 WBC (Bld) 65.6 % Normal 43.0-75.0 [facility] Comment on above: Performed By: #### P OCGLUC #### [facility] [address] [place] [address] Dr. Dilip Cartagena Platelet mean volume (Bld) [Entitic vol] 8.7 fL Critically low 9.5-13.5 [facility] Comment on above: Performed By: #### P OCGLUC #### [facility] [address] [address] Dr. Dilip Cartagena PLT 335 103/ul Normal 150-450 [facility] Comment on above: Performed By: #### P OCGLUC #### [facility] [address] [address] [address] Dilip Cartagena RBC 4.24 106/ul Normal 4.20-5.40 [facility] Comment on above: Performed By: #### P OCGLUC #### [facility] [address] [address] [address] Dilip Cartagena WBC 9.4 103/ul Normal 4.0-11.0 [facility] Comment on above: Performed By: #### P OCGLUC #### [facility] [address] [address] [address] ABD/PELV W CONon [...] Manuelito MARTINEZ Date: 2022-01-16 05:33 Normal [facility] CULTURE BLOODon 01-16-2022 Microscopic examination of blood, culture Culture Observations: NO GROWTH AT 5 DAYS. Isolate 1 [id number] Normal [facility] Comment on above: Performed By: #### L IPID, BMP, NA #### [facility] [address] [address] [address] Dilip Cartagena CULTURE URINEon 01-16-2022 CULTURE URINE Culture Observations : NO GROWTH. Normal [facility] Comment on above: Performed By: #### U RCX #### [facility] [address] [place], [place] [address] Dr. Dilip Cartagena Covid-19 PCR ([facility])on 01-03 SARS-CoV-2 (COVID-19) RNA NAKUL+probe Ql (Unsp spec) Not detected Normal NOT DETECTED [facility] Comment on above: Result Comment: When [...] for this test is supported by the [place] of [employer] and Human Service's declaration that [...] used). Performed By: #### U RCX #### [facility] [address] [place] [address] Dr. Dilip Cartagena ECHO LIMITED STUDYon 10-14-2 022 ECHO LIMITED STUDY Patient: ELOISA ELIZALDE Exam Date: 01/16/2022 : 1940 Gender:F Ordering : DR CECILY VIEIRA . Admission #: [id number] Family : JIM TOBAR RING FACER Order #: [id number] CLICK HERE TO VIEW EXAM ECHOCARDIOGRAM REPORT [...] M.D. on 01/16/2022 at 14:35 Normal [facility] LACTATE/LACTIC ACIDon 2021 Lactate [Moles/Vol] 0.7 mmol/L Normal 0.4-1.9 [facility] Comment on above: Performed By: #### U RCX #### [facility] [address] [place] [address] Dr. Dilip Cartagena Lactate [Moles/Vol] 1.5 mmol/L Normal 0.4-1.9 [facility] Comment on above: Performed By: #### U RCX #### [facility] [address] [place] [address] Dr. Dilip Cartagena LIPASEon 01-16-2022 Lipase [Catalytic activity/Vol] 59.0 U/L Critically low 73.0-393.0 [facility] Comment on above: Performed By: #### L IPID, BMP, NA #### [facility] [address] [address] [address] Dilip Cartagena Lipase [Catalytic activity/Vol] 118.0 U/L Normal 73.0-393.0 [facility] Comment on above: Performed By: #### U RCX #### [facility] [address] [place] [address] Dr. Dilip Cartagena Lipase [Catalytic activity/Vol] 101.0 U/L Normal 73.0-393.0 [facility] Comment on above: Performed By: #### P OCGLUC #### [facility] [address] [address] [address] Dilip Cartagena POINT OF CARE GLUCOSEon 01-03 Glucose [Mass/Vol] 168 mg/dL Critically high 74-106 [facility] Comment on above: Performed By: #### P OCGLUC #### [facility] [address] [place] [address] Dr. Dilip Cartagena Glucose [Mass/Vol] 106 mg/dL Normal 74-106 [facility] Comment on above: Performed By: #### L IPID, BMP, NA #### [facility] [address] [place] [address] Dr. Dilip Cartagena Glucose [Mass/Vol] 221 mg/dL Critically high 74-106 [facility] Comment on above: Performed By: #### L IPID, BMP, NA #### [facility] [address] [place] [address] Dr. Dilip Cartagena PROF 14(COMP METB)on 022 Albumin [Mass/Vol] 3.8 g/dL Normal 3.4-5.0 [facility] Comment on above: Performed By: #### U RCX #### [facility] [address] [place] [address] Dr. Dilip Cartagena Albumin/Globulin [Mass ratio] 1.2 {ratio} Normal [facility] Comment on above: Performed By: #### U RCX #### [facility] [address] [place] [address] Dr. Dilip Cartagena ALP [Catalytic activity/Vol] 52 U/L Normal 46-116 [facility] Comment on above: Performed By: #### U RCX #### [facility] [address] [place] [address] Dr. Dilip Cartagena ALT [Catalytic activity/Vol] 194 U/L Critically high 14-59 [facility] Comment on above: Performed By: #### U RCX #### [facility] [address] [place] [address] Dr. Dilip Cartagena Anion gap [Moles/Vol] 13.5 mmol/L Normal Th [facility] Comment on above: Performed By: #### U RCX #### [facility] [address] [address] [address] Dilip Cartagena AST [Catalytic activity/Vol] 110 U/L Critically high 15-37 [facility] Comment on above: Performed By: #### U RCX #### [facility] [address] [address] [address] Dilip Cartagena Bilirubin [Mass/Vol] 0.4 mg/dL Normal 0.2-1.0 [facility] Comment on above: Performed By: #### U RCX #### [facility] [address] [address] [address] Dilip Cartagena Calcium [Mass/Vol] 8.9 mg/dL Normal 8.5-10.1 [facility] Comment on above: Performed By: #### U RCX #### [facility] [address] [address] [address] Dilip Cartagena Chloride [Moles/Vol] 99 mmol/L Normal 98-107 [facility] Comment on above: Performed By: #### U RCX #### [facility] [address] [address] [address] Dilip Cartagena CO2 [Moles/Vol] 26.1 mmol/L Normal 21.0-32.0 [facility] Comment on above: Performed By: #### U RCX #### [facility] [address] [address] [address] Dilip Cartagena Creatinine [Mass/Vol] 0.93 mg/dL Normal 0.55-1.02 [facility] Comment on above: Performed By: #### U RCX #### [facility] [address] [address] [address] Dilip Cartagena EGFR-AF FILIPINO >60 Normal >=60 [facility] Comment on above: Performed By: #### U RCX #### [facility] [address] [address] [address] Dilip Catragena EGFR-NON AF FILIPINO 58 mL/min/1.73m2 Critically low >=60 [facility] Comment on above: Performed By: #### U RCX #### [facility] [address] [address] [address] Dilip Cartagena Globulin (S) [Mass/Vol] 3.3 g/dL Normal [facility] Comment on above: Performed By: #### U RCX #### [facility] [address] [address] [address] Dilip Cartagena Glucose [Mass/Vol] 143 mg/dL Critically high 74-106 [facility] Comment on above: Performed By: #### U RCX #### [facility] [address] [address] [address] Dilip Cartagena Potassium [Moles/Vol] 4.6 mmol/L Normal 3.5-5.1 [facility] Comment on above: Performed By: #### U RCX #### [facility] [address] [address] [address] Dilip Cartagena Protein [Mass/Vol] 7.1 g/dL Normal 6.4-8.2 [facility] Comment on above: Performed By: #### U RCX #### [facility] [address] [address] [address] Dilip Cartagena Sodium [Moles/Vol] 134 mmol/L Critically low 136-145 [facility] Comment on above: Performed By: #### U RCX #### [facility] [address] [address] [address] Dilip Cartagena Urea nitrogen [Mass/Vol] 21.0 mg/dL Critically high 7.0-18.0 [facility] Comment on above: Performed By: #### U RCX #### [facility] [address] [address] [address] Dilip Cartagena Urea nitrogen/Creatinine [Mass ratio] 22.6 mg/mg Normal [facility] Comment on above: Performed By: #### U RCX #### [facility] [address] [address] [address] Dilip Cartagena T4on 01-16-2022 T4 [Mass/Vol] 10.90 ug/dL Normal 4.80-13.90 [facility] Comment on above: Performed By: #### P OCGLUC #### [facility] [address] [place] [address] Dr. Dilip Cartagena TSHon 01-16-2022 TSH 3.536 uIU/mL Normal 0.358-3.74 0 [facility] Comment on above: Performed By: #### P OCGLUC #### [facility] [address] [place] [address] Dr. Dilip Cartagena UA RANDOM W/MICROSCOPICon BACTERIA TRACE Abnormal NONE SEEN [facility] Comment on above: Performed By: #### U RCX #### [facility] [address] [place] [address] Dr. Dilip Cartagena Bilirubin Ql (U) Negative Normal NEGATIVE [facility] Comment on above: Performed By: #### U RCX #### [facility] [address] [place] [address] Dr. Dilip Cartagena CAST NONE SEEN Normal NONE SEEN [facility] Comment on above: Performed By: #### U RCX #### [facility] [address] [place] [address] Dr. Dilip Cartagena Clarity (U) CLEAR Normal CLEAR [facility] Comment on above: Performed By: #### U RCX #### [facility] [address] [place] [address] Dr. Dilip Cartagena Color (U) DK. ORANGE Abnormal YELLOW [facility] Comment on above: Performed By: #### U RCX #### [facility] [address] [place] [address] Dr. Dilip Cartagena Crystals LM Nom (Urine sed) NONE SEEN Normal NONE SEEN [facility] Comment on above: Performed By: #### U RCX #### [facility] [address] [place] [address] Dr. Dilip Cartagena Epithelial cells LM Ql (Urine sed) RARE Normal NONE SEEN /RARE [facility] Comment on above: Performed By: #### U RCX #### [facility] [address] [place] [address] Dr. Dilip Cartagena Glucose Ql (U) Negative Normal NEGATIVE [facility] Comment on above: Performed By: #### U RCX #### [facility] [address] [place] [address] Dr. Dilip Cartagena Hemoglobin Ql (U) SMALL Abnormal NEGATIVE [facility] Comment on above: Performed By: #### U RCX #### [facility] [address] [place] [address] Dr. Dilip Cartagena Ketones Ql (U) 40 mg/dl Abnormal NEGATIVE [facility] Comment on above: Performed By: #### U RCX #### [facility] [address] [place] [address] Dr. Dilip Cartagena LEUKOCYTES TRACE Abnormal NEGATIVE [facility] Comment on above: Performed By: #### U RCX #### [facility] [address] [place] [address] Dr. Dilip Cartagena MUCOUS NONE SEEN Normal NONE SEEN [facility] Comment on above: Performed By: #### U RCX #### [facility] [address] [place] [address] Dr. Dilip Cartagena Nitrite Ql (U) Positive Abnormal NEGATIVE [facility] Comment on above: Performed By: #### U RCX #### [facility] [address] [place] [address] Dr. Dilip Cartagena pH (U) 6.5 [pH] Normal 5-9 [facility] Comment on above: Performed By: #### U RCX #### [facility] [address] [place] [address] Dr. Dilip Cartagena RBC 0-2 Normal 0-2 [facility] Comment on above: Performed By: #### U RCX #### [facility] [address] [place] [address] Dr. Dilip Cartagena SPEC GRAVITY 1.010 Normal 1.005-<=1. 025 [facility] Comment on above: Performed By: #### U RCX #### [facility] [address] [place] [address] Dr. Dilip Cartagena UA PROTEIN TRACE Normal NEGATIVE/ TRACE [facility] Comment on above: Performed By: #### U RCX #### [facility] [address] [address] [address] Dilip Cartagena Urobilinogen Qn (U) 0.2 {Hallie'U}/dL Normal 0.2 - 1. 0 [facility] Comment on above: Performed By: #### U RCX #### [facility] [address] [address] [address] Dilip Cartagena WBC 2-5 Abnormal NONE SEEN [facility] Comment on above: Performed By: #### U RCX #### [facility] [address] [address] [address] Dilip Cartagena US SINGLE QUAD RT [...] by: LORETTA ORELLANA Date: 2022-01-16 08:00 Normal [facility] US BEV DOP LEG LTon 01-17-20 US [...] by: LORETTA ORELLANA Date: 2022-01-16 07:58 Normal [facility] XR CHEST 2 Von 01-16-2022 XR CHEST [...] JOHANN PARKS Date: 2022-01-16 05:12 Normal [facility] CULTURE URINEon 01-03-2022 CULTURE URINE Isolate [...] Trimethoprim/Sulfamethoxazo le <=20 S F Normal [facility] Comment on above: Performed By: #### U RCX #### [facility] [address] [place] [address] Dr. Dilip Cartagena UA RANDOM W/MICROSCOPICon BACTERIA MODERATE Abnormal NONE SEEN [facility] Comment on above: Performed By: #### U RCX #### [facility] [address] [place] [address] Dr. Dilip Cartagena Bilirubin Ql (U) Negative Normal NEGATIVE [facility] Comment on above: Performed By: #### U RCX #### [facility] [address] [place] [address] Dr. Dilip Cartagena CAST NONE SEEN Normal NONE SEEN [facility] Comment on above: Performed By: #### U RCX #### [facility] [address] [address] [address] Dilip Cartagena Clarity (U) SL CLOUDY Abnormal CLEAR [facility] Comment on above: Performed By: #### U RCX #### [facility] [address] [place] [address] Dr. Dilip Cartagena Color (U) YELLOW Normal YELLOW [facility] Comment on above: Performed By: #### U RCX #### [facility] [address] [place] [address] Dr. Dilip Cartagena Crystals LM Nom (Urine sed) NONE SEEN Normal NONE SEEN [facility] Comment on above: Performed By: #### U RCX #### [facility] [address] [place] [address] Dr. Dilip Cartagena Epithelial cells LM Ql (Urine sed) FEW Abnormal NONE SEEN /RARE [facility] Comment on above: Performed By: #### U RCX #### [facility] [address] [place] [address] Dr. Dilip Cartagena Glucose Ql (U) Negative Normal NEGATIVE [facility] Comment on above: Performed By: #### U RCX #### [facility] [address] [place] [address] Dr. Dilip Cartagena Hemoglobin Ql (U) SMALL Abnormal NEGATIVE [facility] Comment on above: Performed By: #### U RCX #### [facility] [address] [place] [address] Dr. Dilip Cartagena Ketones Ql (U) Negative Normal NEGATIVE [facility] Comment on above: Performed By: #### U RCX #### [facility] [address] [place] [address] Dr. Dilip Cartagena LEUKOCYTES LARGE Abnormal NEGATIVE [facility] Comment on above: Performed By: #### U RCX #### [facility] [address] [place] [address] Dr. Dilip Cartagena MUCOUS NONE SEEN Normal NONE SEEN [facility] Comment on above: Performed By: #### U RCX #### [facility] [address] [place] [address] Dr. Dilip Cartagena Nitrite Ql (U) Negative Normal NEGATIVE [facility] Comment on above: Performed By: #### U RCX #### [facility] [address] [place] [address] Dr. Dilip Cartagena pH (U) 8.5 [pH] Normal 5-9 [facility] Comment on above: Performed By: #### U RCX #### [facility] [address] [place] [address] Dr. Dilip Cartagena RBC 0-2 Normal 0-2 [facility] Comment on above: Performed By: #### U RCX #### [facility] [address] [place] [address] Dr. Dilip Cartagena SPEC GRAVITY 1.010 Normal 1.005-<=1. 025 [facility] Comment on above: Performed By: #### U RCX #### [facility] [address] [place] [address] Dr. Dilip MCCOLLUM PROTEIN TRACE Normal NEGATIVE/ TRACE [facility] Comment on above: Performed By: #### U RCX #### [facility] [address] [place] [address] Dr. Dilip Cartagena Urobilinogen Qn (U) 0.2 {Hallie'U}/dL Normal 0.2 - 1. 0 [facility] Comment on above: Performed By: #### U RCX #### [facility] [address] [place] [address] Dr. Dilip Cartagena WBC 2-5 Abnormal NONE SEEN [facility] Comment on above: Performed By: #### U RCX #### [facility] [address] [place] [address] Dr. Dilip Cartagena CULTURE URINEon 12-22-2021 CULTURE URINE Culture Observations : LIGHT GROWTH OF MIXED GENITAL JAVON. NO POTENTIAL PATHOGENS SEEN. Normal [facility] Comment on above: Performed By: #### U RCX #### [facility] [address] [place] [address] Dr. Dilip Cartagena UA RANDOM W/MICROSCOPICon BACTERIA NONE SEEN Normal NONE SEEN [facility] Comment on above: Performed By: #### P OCGLUC #### [facility] [address] [place] [address] Dr. Dilip Cartagena Bilirubin Ql (U) Negative Normal NEGATIVE [facility] Comment on above: Performed By: #### P OCGLUC #### [facility] [address] [place] [address] Dr. Dilip Cartagena CAST NONE SEEN Normal NONE SEEN [facility] Comment on above: Performed By: #### P OCGLUC #### [facility] [address] [place] [address] Dr. Dilip Cartagena Clarity (U) CLEAR Normal CLEAR [facility] Comment on above: Performed By: #### P OCGLUC #### [facility] [address] [place] [address] Dr. Dilip Cartagena Color (U) LT. YELLOW Normal YELLOW [facility] Comment on above: Performed By: #### P OCGLUC #### [facility] [address] [place] [address] Dr. Dilip Cartagena Crystals LM Nom (Urine sed) NONE SEEN Normal NONE SEEN [facility] Comment on above: Performed By: #### P OCGLUC #### [facility] [address] [place] [address] Dr. Dilip Cartagena Epithelial cells LM Ql (Urine sed) FEW Abnormal NONE SEEN /RARE [facility] Comment on above: Performed By: #### P OCGLUC #### [facility] [address] [place] [address] Dr. Dilip Cartagena Glucose Ql (U) Negative Normal NEGATIVE [facility] Comment on above: Performed By: #### P OCGLUC #### [facility] [address] [place] [address] Dr. Dilip Cartagena Hemoglobin Ql (U) Negative Normal NEGATIVE [facility] Comment on above: Performed By: #### P OCGLUC #### [facility] [address] [place] [address] Dr. Dilip Cartagena Ketones Ql (U) Negative Normal NEGATIVE [facility] Comment on above: Performed By: #### P OCGLUC #### [facility] [address] [place] [address] Dr. Dilip Cartagena LEUKOCYTES Negative Normal NEGATIVE [facility] Comment on above: Performed By: #### P OCGLUC #### [facility] [address] [place] [address] Dr. Dilip Cartagena MUCOUS NONE SEEN Normal NONE SEEN [facility] Comment on above: Performed By: #### P OCGLUC #### [facility] [address] [place] [address] Dr. Dilip Cartagena Nitrite Ql (U) Negative Normal NEGATIVE [facility] Comment on above: Performed By: #### P OCGLUC #### [facility] [address] [place] [address] Dr. Dilip Cartagena pH (U) 6.0 [pH] Normal 5-9 [facility] Comment on above: Performed By: #### P OCGLUC #### [facility] [address] [place] [address] Dr. Dilip Cartagena RBC NONE SEEN Abnormal 0-2 [facility] Comment on above: Performed By: #### P OCGLUC #### [facility] [address] [place] [address] Dr. Dilip Cartagena SPEC GRAVITY 1.005 Normal 1.005-<=1. 025 [facility] Comment on above: Performed By: #### P OCGLUC #### [facility] [address] [place] [address] Dr. Dilip Cartagena UA PROTEIN Negative Normal NEGATIVE/ TRACE [facility] Comment on above: Performed By: #### P OCGLUC #### [facility] [address] [place] [address] Dr. Dilip Cartagena Urobilinogen Qn (U) 0.2 {Hallie'U}/dL Normal 0.2 - 1. 0 [facility] Comment on above: Performed By: #### P OCGLUC #### [facility] [address] [place] [address] Dr. Dilip Cartagena WBC NONE SEEN Normal NONE SEEN [facility] Comment on above: Performed By: #### P OCGLUC #### [facility] [address] [place] [address] Dr. Dilip Cartagena CULTURE URINEon 12-07-2021 CULTURE [...] Trimethoprim/Sulfamethoxazo le <=20 S F Normal [facility] Comment on above: Performed By: #### U RCX #### [facility] [address] [place] [address] Dr. Dilip Cartagena UA RANDOM W/MICROSCOPICon BACTERIA LARGE Abnormal NONE SEEN [facility] Comment on above: Performed By: #### P OCGLUC #### [facility] [address] [place] [address] Dr. Dilip Cartagena Bilirubin Ql (U) SMALL Abnormal NEGATIVE [facility] Comment on above: Performed By: #### P OCGLUC #### [facility] [address] [place] [address] Dr. Dilip Cartagena CAST NONE SEEN Normal NONE SEEN [facility] Comment on above: Performed By: #### P OCGLUC #### [facility] [address] [place] [address] Dr. Dilip Cartagena Clarity (U) CLEAR Normal CLEAR [facility] Comment on above: Performed By: #### P OCGLUC #### [facility] [address] [place] [address] Dr. Dilip Cartagena Color (U) DK. ORANGE Abnormal YELLOW [facility] Comment on above: Performed By: #### P OCGLUC #### [facility] [address] [place] [address] Dr. Dilip Cartagena Crystals LM Nom (Urine sed) NONE SEEN Normal NONE SEEN [facility] Comment on above: Performed By: #### P OCGLUC #### [facility] [address] [place] [address] Dr. Dilip Cartagena Epithelial cells LM Ql (Urine sed) FEW Abnormal NONE SEEN /RARE [facility] Comment on above: Performed By: #### P OCGLUC #### [facility] [address] [place] [address] Dr. Dilip Cartagena Glucose Ql (U) 100 mg/dl Abnormal NEGATIVE [facility] Comment on above: Performed By: #### P OCGLUC #### [facility] [address] [place] [address] Dr. Dilip Cartagena Hemoglobin Ql (U) LARGE Abnormal NEGATIVE [facility] Comment on above: Performed By: #### P OCGLUC #### [facility] [address] [place] [address] Dr. Dilip Cartagena Ketones Ql (U) TRACE Abnormal NEGATIVE [facility] Comment on above: Performed By: #### P OCGLUC #### [facility] [facility] [address] [place] [address] Dr. Dilip Cartagena LEUKOCYTES SMALL Abnormal NEGATIVE [facility] Comment on above: Performed By: #### P OCGLUC #### [facility] [address] [place] [address] Dr. Dilip Cartagena MUCOUS NONE SEEN Normal NONE SEEN [facility] Comment on above: Performed By: #### P OCGLUC #### [facility] [address] [place] [address] Dr. Dilip Cartagena Nitrite Ql (U) Positive Abnormal NEGATIVE [facility] Comment on above: Performed By: #### P OCGLUC #### [facility] [address] [address] [address] Dilip Cartagena pH (U) 8.0 [pH] Normal 5-9 [facility] Comment on above: Performed By: #### P OCGLUC #### [facility] [address] [place] [address] Dr. Dilip Cartagena RBC 50-75 Abnormal 0-2 [facility] Comment on above: Performed By: #### P OCGLUC #### [facility] [address] [place] [address] Dr. Dilip Cartagena SPEC GRAVITY <=1.005 Abnormal 1.005-<=1. 025 [facility] Comment on above: Performed By: #### P OCGLUC #### [facility] [address] [place] [address] Dr. Dilip Cartagena UA PROTEIN >300 Abnormal NEGATIVE/ TRACE [facility] Comment on above: Performed By: #### P OCGLUC #### [facility] [address] [place] [address] Dr. Dilip Cartagena Urobilinogen Qn (U) 1.0 {Hallie'U}/dL Normal 0.2 - 1. 0 [facility] Comment on above: Performed By: #### P OCGLUC #### [facility] [address] [place] [address] Dr. Dilip Cartagena WBC 10-20 Abnormal NONE SEEN [facility] Comment on above: Performed By: #### P OCGLUC #### [facility] [address] [place] [address] Dr. Dilip Cartagena XR KNEE CATRACHITO 4V [...] by: ERIC BERRY Date: 2021-12-04 15:52 Normal [facility] MAMM SCREEN 3D CATRACHITO CADon 10-29-2021 MG MAMM SCREEN 3D CATRACHITO CAD Patient: JAMARI ELIZALDE Exam Date: 10/29/2021 : 1940 Gender:F Ordering : DR KILO CHAVEZ M.D. Admission #: [id number] Family : Order #: [id number] CLICK HERE TO VIEW EXAM RADIOLOGY REPORT [...] breast cancer at age 71. LOCATION: [facility] BREAST COMPOSITION: Heterogeneously dense,which may obscure [...] Berry M.D. on 10/30/2021 at 15:42 Normal [facility] XR DEXA BONE DENSITYon 10-29 XR DEXA [...] by: ERIC BERRY Date: 2021-10-29 17:24 Normal [facility] COVID-19 Positive/Negativeon 08-06-2020 SARS-CoV-2 (COVID-19) N gene NAKUL+probe Ql (Resp) Negative Negative [facility] Comment on above: Testing for SARS-CoV -2 by RT-PCRThis test was developed and its performance characteristics determined by [employer] and validated at the [facility]. This test has not been FDA [...] (COVID-19) RNA NAKUL+probe Ql (Unsp spec) N/A [facility] Vital Signs Date Time Vital Sign Value Performing Clinician Sauli lity 09-25-2022 10:35-0400 Diastolic blood pressure 82 mm[Hg] PHYSICIAN NO [facility] 09-25-2022 10:35-0400 Heart rate 95 /min PHYSICIAN NO [facility] 09-25-2022 10:35-0400 Respiratory rate 16 /min PHYSICIAN NO [facility] 09-25-2022 10:35-0400 SaO2% (BldA) [Mass fraction] 99 % PHYSICIAN NO [facility] 09-25-2022 10:35-0400 Systolic blood pressure 161 mm[Hg] PHYSICIAN NO [facility] 09-25-2022 07:39-0400 Body height 165.1 cm PHYSICIAN NO [facility] 09-25-2022 07:39-0400 Body weight 63.5 kg PHYSICIAN NO [facility] 08-07-2022 11:06-0400 Blood Pressure Location Ivana Lue [facility] 08-07-2022 11:06-0400 Diastolic blood pressure 64 mm[Hg] Ivana Lue [facility] 08-07-2022 11:06-0400 Heart rate 67 /min Ivana Lue [facility] 08-07-2022 11:06-0400 Systolic blood pressure 132 mm[Hg] Ivana Lue [facility] 07-15-2022 10:25-0400 Blood Pressure Location Ivana Lue [facility] 07-15-2022 10:25-0400 Diastolic blood pressure 67 mm[Hg] Ivana Lue [facility] 07-15-2022 10:25-0400 Heart rate 108 /min Ivana Lue [facility] 07-15-2022 10:25-0400 Systolic blood pressure 144 mm[Hg] Ivana Lue [facility] 07-01-2022 08:21-0400 Blood Pressure Location Ivana Lue [facility] 07-01-2022 08:21-0400 Diastolic blood pressure 61 mm[Hg] Ivana Lue [facility] 07-01-2022 08:21-0400 Heart rate 90 /min Ivana Lue [facility] 07-01-2022 08:21-0400 Systolic blood pressure 118 mm[Hg] Ivana Lue [facility] 06-03-2022 07:53-0500 Diastolic blood pressure 70 mm[Hg] II Kilo Chavez Work Phone: [facility] 06-03-2022 07:53-0500 Heart rate 89 /min II Kilo Chavez Work Phone: [facility] 06-03-2022 07:53-0500 Respiratory rate 16 /min II Kilo Chavez Work Phone: [facility] 06-03-2022 07:53-0500 SaO2% (BldA) [Mass fraction] 96 % II Kilo Chavez Work Phone: [facility] 06-03-2022 07:53-0500 Systolic blood pressure 155 mm[Hg] II Kilo Chavez Work Phone: [facility] 06-02-2022 17:00-0500 Body height 162.56 cm II Kilo Chavez Work Phone: [facility] 06-02-2022 17:00-0500 Body temperature 97.6 [degF] II Kilo Chavez Work Phone: [facility] 06-02-2022 17:00-0500 Body weight 72.57 kg II Kilo Chavez Work Phone: [facility] Encounters Encounter Date Encounter Type Care Provider Facility Start: 07-13-2023 ambulatory SEBASTIÁN E LANDY Facili ty:[facility] [place] Start: 06-23-2023 End: 06-23-2023 ambulatory FOZIA AICHHOLZ Not Available Start: 06-08-2023 End: 06-09-2023 ambulatory SEBASTIÁN E LANDY Facility:[facility] [place] Start: 05-11-2023 End: 05-12-2023 ambulatory SEBASTIÁN E LANDY Facility:[facility] [place] Start: 04-13-2023 End: 04-14-2023 ambulatory SEBASTIÁN E LANDY Facility:[facility] [place] Start: 04-13-2023 End: 04-13-2023 Patient encounter procedure SEBASTIÁN E LANDY [facility] Start: 04-08-2023 End: 04-08-2023 ambulatory JEFF MEDELLIN Not Available Start: 03-31-2023 End: 03-31-2023 ambulatory FOZIA AICHHOLZ Not Available Start: 03-16-2023 End: 03-17-2023 ambulatory SEBASTIÁN E LANDY [facility] [place] Start: 03-16-2023 End: 03-16-2023 Patient encounter procedure SEBASTIÁN E LANDY [facility] Start: 02-16-2023 End: 02-17-2023 ambulatory SEBASTIÁN E LANDY Facility:[facility] [place] Start: 01-19-2023 End: 01-20-2023 ambulatory SEBASTIÁN E LANDY Facility:[facility] [place] Start: 12-22-2022 End: 12-23-2022 ambulatory Ivana Hernandez Facility:[facility] [place] Start: 12-22-2022 End: 12-22-2022 Patient encounter procedure Ivana Hernandez [facility] Start: 11-25-2022 End: 11-26-2022 ambulatory Ivana M. Lue Facility:[facility] Start: 11-25-2022 End: 11-25-2022 Patient encounter procedure Ivana M. Lue [facility] Start: 11-10-2022 ambulatory Jose Manuel R BRYNN Aguirre ty:[facility] Start: 10-26-2022 End: 10-27-2022 ambulatory Ivana M. Lue Facility:[facility] Start: 10-15-2022 ambulatory Ivana M. Lue Facility:[facility] [place] Start: 10-12-2022 End: 10-13-2022 ambulatory Ivana M. Lue Facility:[facility] Start: 10-12-2022 End: 10-12-2022 Patient encounter procedure Ivana M. Lue [facility] Start: 09-30-2022 End: 10-01-2022 ambulatory Ivana M. Lue Facility: [place] Start: 09-30-2022 End: 09-30-2022 Patient encounter procedure Ivana M. Lue [facility] [place] Start: 09-30-2022 End: 10-01-2022 ambulatory [facility] Start: 09-30-2022 End: 09-30-2022 Patient encounter procedure Ivana M. Lue [facility] Start: 09-25-2022 End: 09-25-2022 ambulatory Pipe Sanchez Facility:[facility] Start: 09-25-2022 End: 09-25-2022 Admission to same day surgery center PHYSICIAN JASMEET RASMUSSEN [facility] Work Phone: Start: 09-25-2022 End: 09-25-2022 ambulatory PHYSICIAN NO [facility] Work Phone: Start: 09-23-2022 ambulatory Ivana Hernandez Facility:[facility] [place] Start: 09-01-2022 End: 09-02-2022 ambulatory RING FACER FOZIA TOBAR Facility:[facility] Start: 08-26-2022 ambulatory SEBASTIÁN E LANDY Facili ty:[facility] [place] Start: 08-26-2022 End: 08-27-2022 ambulatory SEBASTIÁN E LANDY Facility:[facility] [place] Start: 08-07-2022 End: 08-08-2022 ambulatory Ivana Hernandez Facility:[facility] [place] Start: 08-07-2022 End: 08-07-2022 Patient encounter procedure Ivana Hernandez [facility] [place] Start: 07-30-2022 End: 07-30-2022 ambulatory Johann Dolan Facility:[facility] Start: 07-30-2022 End: 07-30-2022 ambulatory PHYSICIAN NO [facility] Work Phone: Start: 07-30-2022 End: 07-30-2022 Patient encounter procedure PHYSICIAN [facility] [address] Work Phone: Start: 07-23-2022 End: 07-23-2022 ambulatory RING FACER FOZIA VILMAKurtANN Facility:[facility] Start: 07-15-2022 End: 07-16-2022 ambulatory Ivana Hernandez Facility:[facility] [place] Start: 07-15-2022 End: 07-15-2022 Patient encounter procedure [facility] Start: 07-14-2022 ambulatory SEBASTIÁN E LANDY Facili ty:[facility] [place] Start: 07-01-2022 End: 07-02-2022 ambulatory SEBASTIÁN E LANDY Facility:[facility] [place] Start: 07-01-2022 End: 07-01-2022 Patient encounter procedure SEBASTIÁN BILL [facility] Start: 07-01-2022 End: 07-02-2022 ambulatory Ivana Hernandez Facility:[facility] [place] Start: 07-01-2022 End: 07-01-2022 Patient encounter procedure Ivana Hernandez [facility] Start: 06-19-2022 End: 06-19-2022 ambulatory RING FACER FOZIA CHYNA Facility: Start: 06-17-2022 End: 06-18-2022 ambulatory CARY BRENDA [facility] Start: 06-17-2022 End: 06-17-2022 [facility] Start: 06-15-2022 End: 06-16-2022 ambulatory CARY BRENDA [facility] Start: 06-15-2022 End: 06-15-2022 Subsequent [facility] Start: 06-12-2022 End: 06-13-2022 ambulatory CARY BRENDA [facility] Start: 06-12-2022 End: 06-12-2022 Subsequent [facility] Start: 06-10-2022 End: 06-11-2022 ambulatory SG TOBAR [facility] Start: 06-10-2022 End: 06-10-2022 Subsequent [facility] Start: 06-09-2022 End: 06-10-2022 ambulatory CARY BRENDA [facility] Start: 06-09-2022 End: 06-09-2022 Subsequent [facility] Start: 06-07-2022 End: 06-08-2022 ambulatory CARY BRENDA [facility] Start: 06-07-2022 End: 06-07-2022 Subsequent [facility] Start: 06-02-2022 End: 06-03-2022 Emergency department patient visit Oz Beckford Jr Facility:[facility] Start: 06-02-2022 End: 06-03-2022 Emergency department patient visit II Kilo Chavez Work Phone: [facility] Work Phone: Start: 05-20-2022 End: 05-20-2022 ambulatory RING FACER FOZIA AICHHOLZ Facility:[facility] Start: 05-05-2022 End: 05-05-2022 ambulatory Johann Petersenjamesonanastacia Facility:[facility] Start: 05-05-2022 End: 05-05-2022 ambulatory II Kilo Chavez Work Phone: [facility] Work Phone: Start: 05-05-2022 End: 05-05-2022 Patient encounter procedure II Kilo Chavez Work Phone: [facility] [address] Work Phone: Start: 05-04-2022 End: 05-05-2022 ambulatory RING FACER FOZIA AICHHOLZ Facility:[facility] Start: 02-25-2022 End: 02-26-2022 ambulatory RING FACER FOZIA AICHHOLZ Facility:[facility] Start: 02-11-2022 End: 02-11-2022 ambulatory RING FACER FOZIA AICHHOLZ Facility:[facility] Start: 01-30-2022 End: 01-31-2022 ambulatory RING FACER FOZIA AICHHOLZ Facility:[facility] Start: 01-26-2022 End: 01-27-2022 ambulatory RING FACER FOZIA AICHHOLZ Facility:[facility] Start: 01-16-2022 End: 01-17-2022 ambulatory RING FACER FOZIA AICHHOLZ Facility:[facility] Start: 01-02-2022 ambulatory Silvia (Pcna)( Hist) [facility] Start: 12-31-2021 End: 12-31-2021 ambulatory RING FACER FOZIA AICHHOLZ Facility:[facility] Start: 12-22-2021 End: 12-23-2021 ambulatory RING FACER FOZIA AICHHOLZ Facility:[facility] Start: 12-04-2021 End: 12-05-2021 ambulatory RING FACER FOZIA AICHHOLZ Facility:[facility] Start: 10-29-2021 End: 10-30-[address] KILO CHAVEZ Facility:[facility] Start: 08-06-2020 End: 08-06-2020 Patient encounter procedure Pipe Sanchez Work Phone: -Pre-Surgical Testing Procedures Date Procedure Procedure Detail Performing Clinician Start: 10-26-2022 Urodynamic studies Ivana Lue Start: 09-25-2022 Esophagogastroduodenoscopy PHYSICIAN NO [facility] Start: 06-15-2022 Sodium serum plasma or whole blood Jose G Zarco [employer] Work Phone: Start: 06-12-2022 Sodium serum plasma or whole blood Jose G espino [place] [employer] - RING F[employer]ER Work Phone: Start: 06-10-2022 Assay of thyroid stimulating hormone tsh Sg Tobar MD Work Phone: Start: 06-10-2022 Lipid panel Sg Tobar MD Work Phone: Start: 06-09-2022 Comprehensive metabolic panel Cayryanick richard [employer] Work Phone: Start: 06-07-2022 Urinalysis microscopic only Cary Vu nori [employer] - RING [employer]ER Work Phone: Start: 06-07-2022 Urnls dip stick/tablet rgnt auto w/o microscopy Cary Blankvely [employer] Work Phone: Start: 06-02-2022 SARS Antigen (LFIA) II Kilo Chavez Work Phone: Start: 05-13-2012 Cystourethroscopy with dilation of urethral stricture Ivana Lue Appendectomy Ivana Lue Arthroplasty of right shoulder Ivana Lue Bilateral cataracts (disorder) Ivana Lue Colonoscopy Ivana Lue Hysterectomy Ivana Lue Ligation of fallopian tube K athy Lue Plan of Treatment Date Care Activity Detail Author Start: 09-25-2022 [facility] Start: 05-05-2022 [facility] Start: 12-04-2021 Influenza vaccination INFLUENZA (#1) [facility] Start: 11-03-2021 Influenza vaccination Flu vaccine (# 1) [facility] Start: 04-05-2021 ADVANCE DIRECTIVE DISCUSSION ADVANCE DIRECTIVE DISCUSSION [facility] Start: 04-05-2021 DEPRESSION ASSESSMENT DEPRESSION ASS ESSMENT [facility] Start: 2006 BONE DENSITY BONE DENSITY [facility] Start: 2006 PNEUMOCOCCAL: 65+ (1 - PCV) PNEUMOCOCCAL: 65+ (1 - PCV) [facility] Start: 1991 SHINGRIX VACCINE (1 of 2) SHINGRIX VACCINE (1 of 2) [facility] Start: 1986 DIABETES SCREEN DIABETES SCREEN [facility] Start: 1960 DTaP/Tdap/Td vaccine (1 - Tdap) DTaP/Tdap/Td vaccine (1 - Tdap) [facility] Start: 1960 Urine microalbumin profile DTAP,TDAP,TD (1 - Tdap) [facility] Start: 1941 COVID-19 VACCINE (#1) COVID-19 VACCI NE (#1) [facility] Aldolase measurement [facility] Angiotensin converti ng enzyme [Enzymatic activity/volume] in Serum or Plasma [facility] C reactive protein [Mass/volume] in Serum or Plasma [facility] End: 06-07-2022 Culture, Urine [facility] Work Phone: Comment on above: Once for 1 Occurrenc es starting 06/07/2022 until 06/07/2022 Homogenous nuclear A b pattern [Titer] in Serum [facility] Nuclear Ab [Titer] i n Serum [facility] Parathyrin related protein [Moles/volume] in Serum or Plasma [facility] Patient Education Esophageal Dil ation Hiatal Hernia (DC) [facility] Work Phone: Patient referral [facility] Work Phone: Immunizations Immunization Date Immunization Notes Care Provider Rosio paris 04-03-2022 SARS-CoV-2 (COVID-19 ) [id number] Ivana Hernandez [facility] 12-22-2021 influenza virus vaccine, unspecified formulation Ivana Lue [facility] 12-17-2021 influenza virus vaccine, unspecified formulation Ivana Lue [facility] 08-07-2021 SARS-CoV-2 mRNA (jbgxznxsurl-jkor-zqfky se) vaccine Ivana Lue [facility] 01-10-2021 SARS-CoV-2 (COVID-19 ) mRNA BNT-162b2 vax Ivana Luiris [facility] 12-18-2020 influenza virus vaccine, unspecified formulation Ivana Lue [facility] 05-20-2020 COVID-19 mRNA, Comirnaty (Pfizer) II Kilo Chavez Work Phone: [facility] Comment on above: Result Comment: 2022: [id number] 04-29-2020 COVID-19 mRNA, Comirnaty (Pfizer) II Kilo Chavez Work Phone: [facility] Comment on above: Result Comment: 2022: [id number] 12-28-2019 influenza virus vaccine, unspecified formulation Ivana Lue [facility] 12-28-2017 influenza virus vaccine, unspecified formulation Ivana Lue [facility] 01-07-2017 influenza virus vaccine, unspecified formulation Ivana Lue [facility] 12-12-2015 influenza virus vaccine, unspecified formulation Ivana Lue [facility] 12-07-2014 influenza virus vaccine, unspecified formulation Ivana Lue [facility] 12-07-2014 pneumococcal conjuga te vaccine, 13 valent Ivana Lue [facility] 01-20-2012 influenza, whole Ivana Lue [facility] Payers Date Payer Category Payer Self-pay [id number] 2019 Unknown MMO MMO MEDICARE SUPPLEMENT [id number] 2019-Present [phone] [address] [place] [address] Indemnity [id number] 2018 Unknown [id number] 2006 Medicare MEDICARE MEDICAR E A AND B [id number] 2006-Present [phone] [address] [address] [place] [address] Medicare [id number] 1959 Medicare [id number] 1959 Unknown [id number] 1940 Unknown [id number] 2.16.840.1.446468.3.579.2.173 1940 Unknown [id number] 2.16.840.1.458458.3.579.2.173 1940 Unknown [id number] 2.16.840.1.577974.3.579.2.173 1941 Unknown [id number] 2.16.840.1.541989.3.579.2.593 1941 Unknown [id number] 2.16.840.1.901257.3.579.2.593 1941 Unknown [id number] 2.16.840.1.458423.3.579.2.593 1941 Unknown [id number] 2.16.840.1.519940.3.579.2.593 1941 Unknown [id number] 2.16.840.1.967888.3.579.2.593 1941 Unknown [id number] 2.16.840.1.824053.3.579.2.593 1941 Unknown [id number] 2.16.840.1.311591.3.579.2.593 1941 Unknown [id number] 2.16.840.1.608466.3.579.2.593 1941 Unknown [id number] 2.16.840.1.222281.3.579.2.593 1941 Unknown [id number] 2.16.840.1.732680.3.579.2.593 1941 Unknown [id number] 2.16.840.1.368304.3.579.2.593 1941 Unknown [id number] 2.16.840.1.431630.3.579.2.593 1941 Unknown [id number] 2.16.840.1.576846.3.579.2.593 1941 Unknown [id number] 2.16.840.1.805486.3.579.2.593 1941 Unknown [id number] 2.16.840.1.770418.3.579.2.593 1941 Unknown [id number] 2.16.840.1.948651.3.579.2.593 1941 Unknown [id number] 2.16.840.1.644152.3.579.2.727 1941 Unknown [id number] 2.16.840.1.180922.3.579.2.727 1941 Unknown [id number] 2.16.840.1.986454.3.579.2.727 1941 Unknown [id number] 2.16.840.1.286697.3.579.2.727 1941 Unknown [id number] 2.16.840.1.388867.3.579.2.727 1941 Unknown [id number] 2.16.840.1.823996.3.579.2.727 1941 Unknown [id number] 2.16.840.1.220811.3.579.2.727 1941 Unknown [id number] 2.16.840.1.434662.3.579.2.727 1941 Unknown [id number] 2.16.840.1.030643.3.579.2.727 1941 Unknown [id number] 2.16.840.1.846452.3.579.2.727 1941 Unknown [id number] 2.16.840.1.372224.3.579.2.727 1941 Unknown [id number] 2.16.840.1.458479.3.579.2.727 1941 Unknown [id number] 2.16.840.1.434513.3.579.2.727 1941 Unknown [id number] 2.16.840.1.965854.3.579.2.727 1941 Unknown [id number] 2.16.840.1.750198.3.579.2.727 1941 Unknown [id number] 2.16.840.1.432126.3.579.2.727 1941 Unknown [id number] 2.16.840.1.377586.3.579.2.72 1941 Unknown [id number] 2.16.840.1.649886.3.579.2.72 1941 Unknown [id number] 2.16.840.1.230879.3.579.2.727 1941 Unknown [id number] 2.16.840.1.281927.3.579.2. 1941 Unknown [id number] 2.16.840.1.413126.3.579.2.727 1941 Unknown [id number] 2.16.840.1.546921.3.579.2.727 1941 Unknown [id number] 2.16.840.1.564635.3.579.2.727 1941 Unknown [id number] 2.16.840.1.973845.3.579.2.1259 1941 Unknown [id number] 2.16.840.1.682123.3.579.2.1259 1941 Unknown [id number] 2.16.840.1.951540.3.579.2.1259 Unknown [id number] 2.16.840.1.516114.3.579.2.531 Unknown [id number] 2.16.840.1.505598.3.579.2.531 Unknown [id number] 2.16.840.1.973045.3.579.2.531 Unknown [id number] 2.16.840.1.803800.3.579.2.531 Social History Date Type Detail Facility Tobacco smoking status NEIS Unknown if ever smoked [facility] Start: 1940 Sex Assigned At Female F [facility] Start: 07-29-2018 End: 07-15-2022 Tobacco smoking status NHIS Ex-smoker [facility] History of tobacco use Current smoker [facility] Start: 07-29-2018 Tobacco use and exposure Smokeless tobacco non-user [facility] Start: 06-13-2020 Alcohol intake Current drinke r of alcohol (finding) [facility] Start: 07-29-2018 History SDOH Alcohol Comment thisks may have a drink about 4-5 times per week [facility] Start: 1940 Sex Assigned At Not on file [facility] Start: 11-28-2020 Tobacco smoking status NHIS Never smoked tobacco (finding) [facility] Tobacco smoking status NEIS Tobacco smoking consumption unknown [employer] Phone: Tobacco smoking status Never [facility] Sex Assigned At Female [facility] Goals Date Patient Goal Desired Activity /State Functional Status Date Assessment Result Facility 11-25-2022 Functional Status N/A [facility] 08-07-2022 Functional Status N/A [facility] 07-15-2022 Functional Status N/A [facility] 07-01-2022 Functional Status N/A [facility] Clinical Notes 01-02-2022 to 11-25-2022 Silvia Kumar 01/02/2022 9:32 AM EDT Note Date & Type Note Facility 11-25-2022 Hospital Discharg e instructions Patient Education 11/25/2022 10:04:46 Urinary Tract Infection, Adult, [id number]-bb-[id number] Urinary Tract Infection, Adult A urinary tract [...] Follow these instructions at home: Medicines Take trwz-ndp-cuahdet and prescription medicines only as told by [...] provider. Document Revised: 11/01/2020 Document Reviewed: 11/01/2020 Alaris Royalty Patient Education 2022 [employer] Follow Up Care 11/10/2022 14:10:04 With:David WELLS, JACKY Barrera, URO Address: When:Within 1 Month(s) Comments:w/ Cath change [facility] 10-26-2022 Note [id number]:[id number] [facility] 09-25-2022 Procedure note [facility] 08-07-2022 Hospital Discharg e instructions Patient [...] your health care provider. General instructions Take dpmb-hwp-aaqjrcr and prescription medicines only as told by [...] Document Reviewed: 12/05/2020 Elsevier Patient Education 2022 [employer] Follow Up Care 07/15/2022 11:57:20 With:David WELLS, JACKY Barrera, URO Address: When: Unknown [facility] 07-15-2022 Hospital Discharg e instructions Patient Education [...] your health care provider. General instructions Take jcdj-quq-pdwdrnf and prescription medicines only as told by [...] 10/03/2007 Document Revised: 04/04/2018 Document Reviewed: 04/04/2018 [employer]aris Royalty Patient Education 2020 [employer] Follow Up Care 07/01/2022 13:04:43 With:David WELLS, JACKY Barrera, URO Address: [address], [place] [address] [phone] When: Unknown [facility] 07-01-2022 Note HPI Staff Jamari is a 82 y.o. female new patient here for neurogenic bladder and urinary retention. Referral by Fozia Doll CNP. Pt presented to [facility] ER on [...] Illness Pt is here for Referral by [facility] due to Urinary Retention - external [...] urine, unspecified) Pt had Ribeiro placed at [facility] on 06/02/2022 Pt had Ribeiro changed on 06/11/2022 at [facility] Pt has not had a [...] on CT Scan done on 06/02/2022 at [facility] Pt states that she has known about it for years, states it is stable. Declined metabolic workup at this time Cont to monitor 3. UTI (urinary tract infection) (N39.0: Urinary tract infection, site not specified) UTI (asymptomatic) 05/05/2022-[place] 06/07/2022-[facility] - ribeiro exchange Denies lifelong [...] such as MS Suspected per cysto at [facility] in 2019 for gross hematuria. 3+ trabeculations. Hematuria workup negative. 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 Pt unable to CIC due to tremor. Discussed SNM in the future Will schedule Urodynamics once available -Timed voiding Follow-up With When Contact Information Ivana Hernandez MD, URL, URO Additional Instructions: Patient Education Neurogenic Bladder Marilee Espino, personally scribed for Dr. Hernandez on 07/01/2022 09:21:54. . Documentation recorded by the Marilee loomis, accurate (more content not included)... [facility] Comment on above: Result Comment: Elec [...] your health care provider. General instructions Take dmwk-uad-sateabc and prescription medicines only as told by [...] 10/03/2007 Document Revised: 04/04/2018 Document Reviewed: 04/04/2018 [employer]aris Royalty Patient Education 2019 [employer] Follow Up Care 06/24/2022 08:16:27 With:David WELLS, JACKY Barrera, URO Address: When: Unknown [facility] 01-02-2022 Note Patient Outreach (DAVIN SHORT) JAMARI ELIZALDE ([id number]) 1940 F Date Time Provider Department 01/02/22 SHARRI DE LOS SANTOSLEY (PCNA)(HIST) HEMACO During your visit today, we recorded the following information about you: Silvia De Los Santos 01/02/2022 9:34 AM Signed [employer] [facility] Provider Action/FYI Received referral from [employer] for MAMMOGRAM Screening. Patient is outside of screening age. Will close encounter and end navigation. Jamari Elizalde was contacted to discuss their cancer screening needs. Pt identified by name and . Cancer Screening Care Gap Addressed: Breast Cancer Z12.31 Patient does not have appointment scheduled. Order pended. Outreach Outcome: appiris message sent Payer: Insurance: Payor: MEDICARE / [...] not allergic Date Reviewed: 06/13/2020 Reviewed by: Enrqiue Rodriguez - Fully Assessed Prescriptions as of [...] by SILVIA DE LOS SANTOS on 01/02/22 [facility] 01-02-2022 Note HNO ID: [id number] Author: Silvia De Los Santos Service: ? Author Type: ? Type: Progress Notes Filed: 01/02/2022 9:34 AM Note Text: Summary: Mammogram Screening [facility] Provider Marvin/CHELSEA Received referral from [employer] for MAMMOGRAM Screening. Patient is outside of screening age. Will close encounter and end navigation. Jamari Elizalde was contacted to discuss their cancer screening needs. Pt identified by name and . Cancer Screening Care Gap Addressed: Breast Cancer Z12.31 Patient does not have appointment scheduled. Order pended. Outreach Outcome: Anc[employer]hart message sent Payer: Insurance: Payor: MEDICARE / Plan: MEDICARE A AND B / Product Type: Medicare / Payor: MEDICARE / Plan: MEDICARE A AND B / Product Type: Medicare / Discussed with: Niharika Maharaj CNP Follow Up Actions: N/A Barriers: OUTSIDE SCREENING AGE Results Sent to Provider/Practice: JASMEET De Los Santos [facility] 01-02-2022 History of Presen t illness Narrative Summary: Mammogram Screening [facility] Provider Action/CHELSEA Received referral from [employer] [facility] for MAMMOGRAM Screening. Patient is outside of screening age. Will close encounter and end navigation. Jamari Elizalde was contacted to discuss their cancer screening needs. Pt identified by name and . Cancer Screening Care Gap Addressed: Breast Cancer Z12.31 Patient does not have appointment scheduled. Order pended. Outreach Outcome: VenueBookt message sent Payer: Insurance: Payor: MEDICARE / Plan: MEDICARE A AND B / Product Type: Medicare / Payor: MEDICARE / Plan: MEDICARE A AND B / Product Type: Medicare / Discussed with: Niharika Maharaj CNP Follow Up Actions: N/A Barriers: OUTSIDE SCREENING AGE Results Sent to Provider/Practice: JASMEET De Los Santos documented in this encounter [facility] Evaluation + Plan note Future Appointments Appointment Date:07/15/2022 01:00:00 PM Scheduled Provider: Location:[facility] Appointment Type:URO [facility] note Future Appointments Appointment Date:08/07/2022 10:15:00 AM Scheduled Provider:Ivana Hernandez MD Location:[facility] Appointment Type:URO [facility] + Plan note Future Appointments Appointment Date:08/26/2022 08:30:00 AM Scheduled Provider: Location:[facility] Appointment Type:URO Nurse Visit [facility] Evaluation + Plan note Future Appointments Appointment Date:11/10/2022 02:00:00 PM Scheduled Provider: Location:[facility] Appointment Type:URO Nurse Visit [facility] Evaluation + Plan note Future Appointments Appointment Date:11/10/2022 02:00:00 PM Scheduled Provider: Location:[facility] Appointment Type:URO Nurse Visit Diagnostic Tests PendingUrine Culture 10/12/22 [facility] Evaluation + Plan note Future Appointments Appointment Date:12/23/2022 10:00:00 AM Scheduled Provider: Location:[facility] Appointment Type:URO Nurse Visit [facility] Evaluation + Plan note Future Appointments Appointment Date:01/19/2023 01:00:00 PM Scheduled Provider: Location:[facility] Appointment Type:URO Nurse Visit [facility] Evaluation + Plan note Future Appointments Appointment Date:04/13/2023 01:00:00 PM Scheduled Provider: Location:[facility] Appointment Type:URO Nurse Visit [facility] Evaluation + Plan note Future Appointments Appointment Date:05/11/2023 01:00:00 PM Scheduled Provider: Location:[facility] Appointment Type:URO Nurse Visit [facility] Evaluation note No Assessments Infor mation Available [facility] Evaluation note No assessment inform ation available [facility] Work Phone: Evaluation note Diagnosis Onset Date Weight loss acute [facility] Work Phone: Hospital course Narrative No data available for this section [facility] Hospital Discharge instructions No data available for this section [facility] Hospital Discharge instructions Additional Instructions DISCHARGE INSTRUCTIONS [...] if you have any problems. -Office number [phone] Work Phone: Progress note No data available for this section [facility] Advance Directives No Advanced Directives [...] or prosecute any alcohol or drug abuse patient.[facility] Care Teams (unrecognized sec tion and content) Safety Counselor Relationship Specialty Start Date End Date Kilo Chavez II [address] [facility] [address] [place] [address] PCP - General Internal Medicine 06/30/18 Kilo Chavez II [address] [facility] [address] [place] [address] Referring Internal Medicine 09/30/18 Team Status: Inactive [...] section and content) DATE CREATED AUTHOR 01/06/2022 [facility] DATE CREATED AUTHOR AUTHOR'S ORGANIZ ATION 06/18/2022 [facility] DATE CREATED AUTHOR AUTHOR'S ORGANIZ ATION 09/12/2022 [facility] DATE CREATED AUTHOR AUTHOR'S ORGANIZ ATION 10/20/2022 [facility] DATE CREATED AUTHOR AUTHOR'S ORGANIZ ATION 06/22/2023 [facility] DATE CREATED AUTHOR AUTHOR'S ORGANIZ ATION 06/24/2023 [facility] EPIC Goals (unrecognized section and content) Goals may [...] BE BASED ON THE PRIMARY CLINICAL RECORDS. [employer] [facility]. provides no warranty or guarantee of the accuracy or completeness of information in this document.
--- NOTE | 2023-06-28 19:55 | ECG_ITS ---
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
--- NOTE | 2023-06-28 19:55 | XR_ITS ---
[address] [address] Patient Name: JAMARI ELIZALDE MRN: [id number] date: 1940 Sex: F Assigned Patient Location: ER Current Patient Location: ER Accession/Order Number: [id number] Exam Date: 06/28/2023 20:19 Report Date: 06/28/2023 20:34 At the request of: ALICE WEBER Procedure: XR chest 1V Exam: Radiographs: XR chest 1V Reason for exam: CHF Comparison: Chest x-ray dated 06/18/2023 XR/XR chest 1V IMPRESSION: Atelectasis and/or infiltrate in the lower lungs bilaterally. Small bilateral pleural effusions. Pulmonary venous hypertension. Remainder of the chest is unremarkable. Electronically authenticated by: PRIYA MCKEON Date: 06/28/2023 20:34
--- NOTE | 2023-06-28 19:56 | ED_ITS ---
HPI - Recheck/Abnormal Lab/Rx General Chief Complaint: Recheck/Abnormal Lab/Rx Stated Complaint: Abnormal Labs, Altered Mental Status Time Seen by Provider: 06/28/23 19:49 Source: patient and family Mode of arrival: Wheelchair Limitations: no limitations History of Present Illness HPI narrative: Patient is an 83-year-old female with a history of CHF who has an indwelling Ribeiro catheter, she presents to the ER with her daughter and for evaluation of abnormal outpatient labs. Daughter states that the patient had a lab draw today because she has had issues with hyponatremia for the last several weeks and she was treated for CHF. Her PCP called to report that her sodium was 114 today. Patient has been mildly confused but has not had any falls, fevers. She has had mild cough but her daughter states that her CHF symptoms seem much better. Patient denies any chest pain, vomiting. She states she is eating and drinking well. She was recently increased from 2 g of sodium daily to 3 g of sodium daily. She is on Cipro currently for UTI related to the Ribeiro catheter. Related Data Home Medications ?Medication ?Instructions ?Recorded ?Confirmed amantadine HCl 100 mg capsule 100 mg PO BID 06/13/23 06/29/23 amlodipine 2.5 mg tablet 2.5 mg PO DAILY 06/13/23 06/29/23 aripiprazole 2 mg tablet 2 mg PO DAILY 06/13/23 06/29/23 aspirin 81 mg tablet,delayed 81 mg PO BEDTIME 06/13/23 06/29/23 release (Adult Aspirin Regimen) biotin 10,000 mcg capsule 10,000 mcg PO BID 06/13/23 06/29/23 cranberry 400 mg capsule 400 mg PO BID 06/13/23 06/29/23 dextroamphetamine-amphetamine 15 15 mg PO DAILY 06/13/23 06/29/23 mg tablet docusate sodium 100 mg capsule 100 mg PO BID PRN constipation 06/13/23 06/29/23 ezetimibe 10 mg tablet 10 mg PO BEDTIME 06/13/23 06/29/23 lisinopril 20 mg tablet 20 mg PO DAILY 06/13/23 06/29/23 lorazepam 0.5 mg tablet 0.5 mg PO Q8H PRN anxiety 06/13/23 06/29/23 melatonin 10 mg capsule 5 mg PO BEDTIME 06/13/23 06/29/23 metformin 500 mg tablet,extended 1,000 mg PO .DINNER 06/13/23 06/29/23 release 24 hr omeprazole 20 mg capsule,delayed 20 mg PO .DINNER 06/13/23 06/29/23 release omeprazole 40 mg capsule,delayed 40 mg PO .BREAKFAST 06/13/23 06/29/23 release ondansetron HCl 4 mg tablet 4 mg PO Q6H PRN nausea and vomiting 06/13/23 06/29/23 oxybutynin chloride 5 mg tablet 5 mg PO Q8H PRN bladder spasms 06/13/23 06/29/23 sertraline 50 mg tablet 50 mg PO BEDTIME 06/13/23 06/29/23 trazodone 150 mg tablet 150 mg PO .QHS 06/13/23 06/29/23 ezetimibe 10 mg tablet (Zetia) 10 mg PO DAILY 06/28/23 06/29/23 glimepiride 1 mg tablet 0.5 mg PO DAILY 06/28/23 06/29/23 lidocaine 5 % topical patch 1 patch topical DAILY PRN pain 06/28/23 06/29/23 Previous Rx's ?Medication ?Instructions ?Recorded ciprofloxacin HCl 500 mg tablet 500 mg PO Q12H #14 tabs 06/16/23 (Cipro) furosemide 40 mg tablet (Lasix) 40 mg PO DAILY #30 tabs 06/16/23 carvedilol 12.5 mg tablet 12.5 mg PO BID #60 tabs 06/19/23 sodium chloride 1,000 mg soluble 1,000 mg PO TID #90 tabs 06/19/23 tablet Allergies Allergy/AdvReac Type Severity Reaction Status Date / Time adhesive tape Allergy Blistering Verified 06/13/23 15:31 Review of Systems ROS Constitutional Denies: fever or chills Ears, nose, mouth, and throat Denies: throat pain or nasal congestion Cardiovascular Denies: chest pain Respiratory Reports: shortness of breath and cough Gastrointestinal Denies: abdominal pain, nausea, vomiting or diarrhea Musculoskeletal Denies: back pain or neck pain Integumentary/Breast Denies: rash Neurological Denies: headache Hematologic/Lymphatic Denies: easy bruising or easy bleeding [facility] Medical History (Updated 06/29/23 @ 03:09 by Dina Burghardt) Rectal prolapse ?K62.3 - Rectal prolapse (ICD-10) Hyponatremia ?E87.1 - Hypo-osmolality and hyponatremia (ICD-10) Acute HFrEF (heart failure with reduced ejection fraction) ?I50.21 - Acute systolic (congestive) heart failure (ICD-10) Bilateral pleural effusion ?J90 - Pleural effusion, not elsewhere classified (ICD-10) Hypertension ?I10 - Essential (primary) hypertension (ICD-10) Diabetes ?E11.9 - Type 2 diabetes mellitus without complications (ICD-10) Acute respiratory failure ?J96.00 - Acute respiratory failure, unspecified whether with hypoxia or hypercapnia (ICD-10) Acute combined systolic (congestive) and diastolic (congestive) heart failure ?I50.41 - Acute combined systolic (congestive) and diastolic (congestive) heart failure (ICD-10) Insomnia ?G47.00 - Insomnia, unspecified (ICD-10) Multifocal pneumonia ?J18.9 - Pneumonia, unspecified organism (ICD-10) Chronic indwelling Ribeiro catheter ?Z97.8 - Presence of other specified devices (ICD-10) 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00 - Pure hypercholesterolemia, unspecified (ICD-10) Fatty liver ?K76.0 - Fatty (change of) liver, not elsewhere classified (ICD-10) Osteopenia ?M85.80 - Other specified disorders of bone density and structure, unspecified site (ICD-10) Hiatal hernia ?K44.9 - Diaphragmatic hernia without obstruction or gangrene (ICD-10) Esophageal erosions ?K22.10 - Ulcer of esophagus without bleeding (ICD-10) 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 - Osteopathy after poliomyelitis, right lower leg (ICD-10) ?B91 - Sequelae of poliomyelitis (ICD-10) Spina bifida ?Q05.9 - Spina bifida, unspecified (ICD-10) Surgical History S/P right rotator cuff repair ?Z98.890 - Other specified postprocedural states (ICD-10) H/O: hysterectomy ?Z90.710 - Acquired absence of both cervix and uterus (ICD-10) History of appendectomy ?Z90.49 - Acquired absence of other specified parts of digestive tract (ICD- 10) H/O tubal ligation ?Z98.51 - Tubal ligation status (ICD-10) Social History Within the past year, how often did you have a drink containing alcohol: monthly or less Smoking status: Former smoker Highest level of school completed/degree received: some college, no degree Exam Narrative Exam Narrative: Gen.: Awake, alert, in no distress Head: Normocephalic, atraumatic ENT: Moist mucous membranes Respiratory: No respiratory distress, lungs clear bilaterally Cardio: Regular rate and rhythm Gastrointestinal: Abdomen is soft, nondistended and nontender to palpation Extremities: Moves extremities equally, no pedal edema Psych: Normal mood and affect Neuro: No focal neuro deficit Skin: Warm, dry, intact Constitutional Vital Signs, click to edit/add: Last Vital Signs Temp 97.9 F 06/29/23 04:00 Pulse 82 06/29/23 06:00 Resp 21 06/29/23 04:00 BP 135/61 06/29/23 04:00 Pulse Ox 93 L 06/29/23 06:00 O2 Del Method Room Air 06/29/23 04:00 Course Vital Signs Vital signs: Vital Signs Temperature 98 F 06/28/23 19:43 Pulse Rate 79 06/28/23 19:43 Respiratory Rate 18 06/28/23 19:43 Blood Pressure 123/67 06/28/23 19:43 Pulse Oximetry 96 06/28/23 19:43 Oxygen Delivery Method Room Air 06/28/23 19:43 Temperature 97.9 F 06/29/23 04:00 Pulse Rate 82 06/29/23 06:00 Respiratory Rate 21 06/29/23 04:00 Blood Pressure 135/61 06/29/23 04:00 Pulse Oximetry 93 L 06/29/23 06:00 Oxygen Delivery Method Room Air 06/29/23 04:00 MDM - Recheck/Abnormal Lab/Rx MDM Narrative Medical decision making narrative: No complaints of chest pain, she has no other focal medical complaints in the ER. Chest x-ray shows stable bibasilar atelectasis versus infiltrate with pleural effusions. While in the hospital 2 weeks ago, patient had a CTA of the chest as well as echo and stress test showing left ventricular hypertrophy, CHF Discussed with the hospitalist, patient sodium is 118 and BNP is significantly elevated. Patient will be started on normal saline At 75 mL/h with fluid restrictions. She is admitted to ICU for evaluation by cardiology for management of hyponatremia in light of CHF. She is sitting comfortably on room air with no complaints of shortness of breath at rest, no chest pain or respiratory distress in the ER. Medical Records Attestation: I reviewed the patient's medical records. Lab Data Attestation: I reviewed the patient's lab results. Labs: Lab Results 06/28/23 Range/Units 20:08 WBC 9.0 (4.0-11.0) 10^3/uL RBC 3.67 L (4.20-5.40) 10^6/uL Hgb 10.9 L (12.0-16.0) g/dL Hct 33.1 L (36.0-48.0) % MCV 90.2 (81.0-99.0) fL MCH 29.7 (26.7-34.0) pg MCHC 32.9 (29.9-35.2) g/dL RDW 14.0 (11.0-15.0) % Plt Count 370 (150-450) 10^3/uL MPV 9.2 L (9.5-13.5) fL Neut % (Auto) 70.0 (43.0-75.0) % Lymph % (Auto) 19.6 L (20.5-60.0) % Grady % (Auto) 8.5 (1.7-12.0) % Eos % (Auto) 0.7 L (0.9-7.0) % Baso % (Auto) 0.2 (0.2-2.0) % Neut # (Auto) 6.3 (1.4-6.5) 10^3/uL Lymph # (Auto) 1.8 (1.2-3.8) 10^3/uL Grady # (Auto) 0.8 (0.3-0.8) 10^3/uL Eos # (Auto) 0.1 (0.0-0.7) 10^3/uL Baso # (Auto) 0.0 (0.0-0.1) 10^3/uL Abs Immat Gran (auto) 0.09 H (0.00-0.03) 10^3/uL Imm/Tot Granulo (auto) 1.0 H (0.0-0.5) % Sodium 118 L* (136-145) mmol/L Potassium 4.8 (3.5-5.1) mmol/L Chloride 85 L (98-107) mmol/L Carbon Dioxide 24.3 (21.0-32.0) mmol/L Anion Gap 13.5 BUN 26.0 H (7.0-18.0) mg/dL Creatinine 1.02 (0.55-1.02) mg/dL Est GFR ( Amer) >60 (>=60) Est GFR (Non-Af Amer) 52 L (>=60) BUN/Creatinine Ratio 25.5 Glucose 151 H (74-106) mg/dL Lactate 2.0 (0.4-2.0) mmol/L Calcium 8.3 L (8.5-10.1) mg/dL Magnesium 1.6 L (1.8-2.4) mg/dL Total Bilirubin 0.4 (0.2-1.0) mg/dL AST 30 (15-37) U/L ALT 133 H (14-59) U/L Alkaline Phosphatase 100 (46-116) U/L Troponin I High Sens 34.8 (4.0-51.3) pg/mL NT-Pro-B Natriuret Pep >43981.0 H* (<=1800.0) pg/mL Total Protein 6.6 (6.4-8.2) g/dL Albumin 3.3 L (3.4-5.0) g/dL Globulin 3.3 g/dL Albumin/Globulin Ratio 1.0 TSH 2.978 (0.358-3.740) uIU/mL Imaging Data Chest x-ray: Attestation: I have reviewed the pertinent imaging results. Radiologist's impression: ITS Impressions Chest X-Ray 06/28/23 19:55 IMPRESSION: Atelectasis and/or infiltrate in the lower lungs bilaterally. Small bilateral pleural effusions. Pulmonary venous hypertension. Remainder of the chest is unremarkable. Electronically authenticated by: PRIYA MCKEON Date: 06/28/2023 20:34 ECG Data Attestation: I personally reviewed and interpreted this ECG as follows: (Normal sinus rhythm at a rate of 77 with occasional PVC, no acute ST elevation. No ectopy. EKG reviewed by attending physician) ECG interpretation date: 06/28/23 Discharge Plan Discharge Chief Complaint: Recheck/Abnormal Lab/Rx Clinical Impression: Acute hyponatremia Patient Disposition: Admitted As Inpatient Time of Disposition Decision: 21:00 Condition: Good Discharge Date/Time: 06/28/23 22:40
[2023-06-28 20:17] LABS: Basophils Percent Auto 0.2 % (0.2-2.0); Eosinophils Absolute Auto 0.1 10^3/uL (0.0-0.7); Eosinophils Percent Auto 0.7 % (0.9-7.0); Hematocrit 33.1 % (36.0-48.0); Hemoglobin 10.9 g/dL (12.0-16.0); Immature Granulocytes Abs Auto 0.09 10^3/uL (0.00-0.03); Lymphocytes Absolute Auto 1.8 10^3/uL (1.2-3.8); Lymphocytes Percent Auto 19.6 % (20.5-60.0); Mean Corpuscular HGB Conc 32.9 g/dL (29.9-35.2); Mean Corpuscular Hemoglobin 29.7 pg (26.7-34.0); Mean Corpuscular Volume 90.2 fL (81.0-99.0); Mean Platelet Volume 9.2 fL (9.5-13.5); Monocytes Absolute Auto 0.8 10^3/uL (0.3-0.8); Monocytes Percent Auto 8.5 % (1.7-12.0); Neutrophils Absolute Auto 6.3 10^3/uL (1.4-6.5); Platelet Count 370 10^3/uL (150-450); Red Blood Count 3.67 10^6/uL (4.20-5.40)
[2023-06-28 20:28] VITALS: PULSE 77
[2023-06-28 20:41] LABS: Alanine Aminotransferase 133 U/L (14-59); Albumin Level 3.3 g/dL (3.4-5.0); Alkaline Phosphatase 100 U/L (46-116); Anion Gap 13.5; Aspartate Amino Transferase 30 U/L (15-37); BUN Creatinine Ratio 25.5; Bilirubin Total 0.4 mg/dL (0.2-1.0); Calcium 8.3 mg/dL (8.5-10.1); Carbon Dioxide 24.3 mmol/L (21.0-32.0); Chloride 85 mmol/L (98-107); Estimated GFR (African America >60 (>=60); Estimated GFR (Non-African Ame 52 (>=60); Globulin 3.3 g/dL; Glucose 151 mg/dL (74-106); Magnesium 1.6 mg/dL (1.8-2.4); Potassium 4.8 mmol/L (3.5-5.1); Thyroid Stimulating Hormone 2.978 uIU/mL (0.358-3.740); Total Protein 6.6 g/dL (6.4-8.2); Troponin I High Sensitivity 34.8 pg/mL (4.0-51.3)
[2023-06-28 20:42] LABS: Sodium 118 mmol/L (136-145)
[2023-06-28 20:43] LABS: NT Pro B Type Natriuretic Pept >35000.0 pg/mL (<=1800.0)
[2023-06-28] MEDS: 0.9 % SODIUM CHLORIDE 1,000 ML 75 ML IV (21:13)
[2023-06-28 22:00] VITALS: BP 141/82; PULSE 79; RESP 20; O2SAT 94
[2023-06-28 22:45] VITALS: BP 151/73; PULSE 78; RESP 21; TEMP 36.6; O2SAT 96
--- OUTSIDE RECORDS SUMMARY | 2023-06-28 22:46 | XMS_ITS | CCD ---
Author Organization [facility] Care Team Providers Care Jail Manager Name Role Phone Pipe Sanchez Attending Provider [phone] Kilo Chavez Primary Care Provider [phone] Kilo Chavez II Primary Care Provider [phone] Kilo Chavez II Unavailable [phone] MARU Chavez Primary Care Provider MD Johann Dolan Attending Provider [phone] Unavailable Primary Care Provider Unavailabl e NO [...] Provider MD Johann Dolan Attending Provider AICHHOLZ, TOP AND SEAT COVER FITTER FOZIA Admitting Unavailable AICHHOLZ, TOP AND SEAT COVER FITTER FOZIA Primary Care Unavailable AICHHOLZ, TOP AND SEAT COVER FITTER FOZIA Attending Unavailable AICHHOLZ, TOP AND SEAT COVER FITTER FOZIA Consulting Unavailable AICHHOLZ, TOP AND SEAT COVER FITTER FOZIA Admitting Unavailable AICHHOLZ, TOP AND SEAT COVER FITTER FOZIA Attending Unavailable AICHHOLZ, TOP AND SEAT COVER FITTER FOZIA Consulting Unavailable AICHHOLZ, TOP AND SEAT COVER FITTER FOZIA Primary Care Unavailable AICHHOLZ, TOP AND SEAT COVER FITTER FOZIA Primary Care Unavailable SHAIKH Kurt PRICE Attending Unavailable SHAIKH Kurt PRICE Admitting Unavailable DR CECILY FRASER Consulting Unavailable ESTEBAN, DR LORETTA Dillard Consulting Unavailable LIBIA JACOB Consulting Unavailable LENA MARTINEZ Consulting Unavailable SHAIKH Kurt PRICE Consulting Unavailable JOHANN PARKS Consulting Unavailable DR KILO CHAVEZ Primary Care Unavailable DR KILO CHAVEZ Consulting Unavailable DR KILO CHAVEZ Attending Unavailable DR KILO CHAVEZ Admitting Unavailable DR ERIC BERRY Unavailable AICHHOLZ, TOP AND SEAT COVER FITTER FOZIA Admitting Unavailable AICHHOLZ, TOP AND SEAT COVER FITTER FOZIA Attending Unavailable AICHHOLZ, TOP AND SEAT COVER FITTER FOZIA Consulting Unavailable AICHHOLZ, TOP AND SEAT COVER FITTER FOZIA Primary Care Unavailable AICHHOLZ, TOP AND SEAT COVER FITTER FOZIA Primary Care Unavailable AICHHOLZ, TOP AND SEAT COVER FITTER FOZIA Attending Unavailable AICHHOLZ, TOP AND SEAT COVER FITTER FOZIA Consulting Unavailable AICHHOLZ, TOP AND SEAT COVER FITTER FOZIA Admitting Unavailable DR ERIC BERRY Consulting Unavailable AICHHOLZ, TOP AND SEAT COVER FITTER FOZIA Primary Care Unavailable AICHHOLZ, TOP AND SEAT COVER FITTER FOZIA Consulting Unavailable AICHHOLZ, TOP AND SEAT COVER FITTER FOZIA Attending Unavailable AICHHOLZ, TOP AND SEAT COVER FITTER FOZIA Admitting Unavailable AICHHOLZ, TOP AND SEAT COVER FITTER FOZIA Admitting Unavailable AICHHOLZ, TOP AND SEAT COVER FITTER FOZAI Attending Unavailable AICHHOLZ, TOP AND SEAT COVER FITTER FOZIA Referring Unavailable AICHHOLZ, TOP AND SEAT COVER FITTER FOZIA Consulting Unavailable AICHHOLZ, TOP AND SEAT COVER FITTER FOZIA Primary Care Unavailable DR ERIC BERRY Consulting Unavailable AICHHOLZ, TOP AND SEAT COVER FITTER FOZIA Primary Care Unavailable AICHHOLZ, TOP AND SEAT COVER FITTER FOZIA Consulting Unavailable AICHHOLZ, TOP AND SEAT COVER FITTER FOZIA Attending Unavailable AICHHOLZ, TOP AND SEAT COVER FITTER FOZIA Admitting Unavailable AICHHOLZ, TOP AND SEAT COVER FITTER FOZIA Primary Care Unavailable AICHHOLZ, TOP AND SEAT COVER FITTER FOZIA Consulting Unavailable AICHHOLZ, TOP AND SEAT COVER FITTER FOZIA Attending Unavailable AICHHOLZ, TOP AND SEAT COVER FITTER FOZIA Admitting Unavailable AICHHOLZ, TOP AND SEAT COVER FITTER FOZIA Primary Care Unavailable ADDY MEHTA Attending Unavailable DR JOHANN DOLAN Consulting Unavailable ADDY MEHTA Admitting Unavailable AICHHOLZ, TOP AND SEAT COVER FITTER FOZIA Primary Care Unavailable AICHHOLZ, TOP AND SEAT COVER FITTER FOZIA Consulting Unavailable AICHHOLZ, TOP AND SEAT COVER FITTER FOZIA Attending Unavailable AICHHOLZ, TOP AND SEAT COVER FITTER FOZIA Admitting Unavailable AICHHOLZ, TOP AND SEAT COVER FITTER FOZIA Primary Care Unavailable AICHHOLZ, TOP AND SEAT COVER FITTER FOZIA Consulting Unavailable AICHHOLZ, TOP AND SEAT COVER FITTER FOZIA Attending Unavailable AICHHOLZ, TOP AND SEAT COVER FITTER FOZIA Admitting Unavailable AICHHOLZ, TOP AND SEAT COVER FITTER FOZIA Primary Care Unavailable AICHHOLZ, TOP AND SEAT COVER FITTER FOZIA Consulting Unavailable AICHHOLZ, TOP AND SEAT COVER FITTER FOZIA Attending Unavailable AICHHOLZ, TOP AND SEAT COVER FITTER FOZIA Admitting Unavailable DR ERIC BERRY Consulting Unavailable AICHHOLZ, TOP AND SEAT COVER FITTER FOZIA Primary Care Unavailable AICHHOLZ, TOP AND SEAT COVER FITTER FOZIA Consulting Unavailable AICHHOLZ, TOP AND SEAT COVER FITTER FOZIA Attending Unavailable AICHHOLZ, TOP AND SEAT COVER FITTER FOZIA Admitting Unavailable AICHHOLZ, TOP AND SEAT COVER FITTER FOZIA Primary Care Unavailable AICHHOLZ, TOP AND SEAT COVER FITTER FOZIA Attending Unavailable AICHHOLZ, TOP AND SEAT COVER FITTER FOZIA Consulting Unavailable AICHHOLZ, TOP AND SEAT COVER FITTER FOZIA Admitting Unavailable NO FAMILY, PHYSICIAN Primary Care Provider Unava ilable MD Pipe Sanchez Attending Provider [phone] [facility] Primary Care Provider [phone] Johann Dolan Admitting Unavailable NO FAMILY, PHYSICIAN [...] Attending Unavailable LANDY, SEBASTIÁN E Attending Unavailable LANYD, SEBASTIÁN E Attending Unavailable Lue, Ivana M. [...] source) Adhesive agent Drug Allergy 9 Rash [facility] (13 sources) Aspirin; 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: [aspirin] Drug Allergy 9 GI Upset, Gastritis (disorder) [facility] (1 source) Penicillins Drug Allergy 9 Rash [facility] (12 sources) Adhesive Tape; 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: [Tape] Drug allergy Blister - unit of product usage (qualifier value) [facility] (12 sources) Penicillin; 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: [penicillin] Drug Allergy Cutaneous eruption (morphologic abnormality) [facility] (1 source) No Known Medication Allergies; 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: [No Known Medication Allergies] Propensity to adverse reactions (disorder) [facility] Repository NEGATED: Highlighted row has been ruled out! (1 source) Drug allergy [facility] NEGATED: Highlighted row has been ruled out! (1 source) Drug allergy [facility] NEGATED: Highlighted row has been ruled out! (1 source) Drug allergy [facility] NEGATED: Highlighted row has been ruled out! (1 source) Drug allergy [facility] NEGATED: Highlighted row has been ruled out! (1 source) Drug allergy [facility] NEGATED: Highlighted row has been ruled out! (1 source) Drug allergy [facility] NEGATED: Highlighted row has been ruled out! (1 source) Drug allergy [facility] NEGATED: Highlighted row has been ruled out! (1 source) Drug allergy [facility] NEGATED: Highlighted row has been ruled out! (1 source) Drug allergy [facility] NEGATED: Highlighted row has been ruled out! (1 source) Drug allergy [facility] NEGATED: Highlighted row has been ruled out! (1 source) Drug allergy [facility] Medications Current Medications Medication Drug Class(es) Dates [...] exchange, # 6 tab(s), Refills(s) 0, Pharmacy: [facility] #72, 165, cm, 08/07/22 11:07:00 EDT, Height/Length [...] Start: 07-01-2022 take 1 capsule by mo [facility] twice daily as needed for constipation [...] discomfort, # 90 tab(s), Refills(s) 3, Pharmacy: [facility] #72, 165, cm, 11/25/22 9:01:00 EDT, Height/Length [...] 125mg, # 30 tab(s), Refills(s) 0, Pharmacy: [facility] #[facility] Start Date: 02/06/19 Status: Ordered Start: [...] 08-04-2018 Chronic Other aftercare (3 sources) Other mcc (current) drug therapy; 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: [Other mcc (current) drug therapy] Onset: 06-10-2022 Episodic Other bone disease and musculoskeletal deformities (11 sources) Osteopenia 10-11-2018 Episodic Other SAFETY TECH infection and poliomyelitis (13 sources) Late effects [...] Onset: 05-05-2022 Episodic Other aftercare (1 source) nursing home (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; 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: [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] Onset: 01-21-2022 Episodic Other aftercare (1 source) nursing home (current) use of anticoagulants; 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: [CYBER ENGINEER CURRNT USE ANTICOAGULANTS] Onset: 01-21-2022 Episodic Other [...] Clinical Noteon Retail - Clinical Note [id number]#1.00TIFF [facility] Ambulatory Visit Summaryon 0 05-11-2023 Ambulatory Visit [...] 1:00 PM EST Where: [facility] Retail - Clinical Noteon Retail - Clinical Note [id number]#1.00TIFF [facility] Ambulatory Visit Summaryon 1 05-17-2022 Ambulatory Visit [...] 1:00 PM EST Where: [facility] Retail - Clinical Noteon Retail - Clinical Note [id number]#1.00TIFF [facility] Ambulatory Visit Summaryon 1 Ambulatory Visit Summary [...] 1:00 PM EST Where: [facility] Patient Educationon 11-26-19 Patient Education Obstetrics and [...] these instructions at home: Medicines ? Take yxwe-qsm-dlufkyt and prescription medicines only as told by [...] Reviewed: 11/01/2020 [employer] Patient Education ? 2022 [employer] [facility] Urology Office/Clinic Noteon 11-25-2022 Urology Office/Clinic [...] residual neurologic deficits Suspected per cysto at [facility] in 2019 for gross hematuria. 3+ [...] urine, unspecified) Pt had Ribeiro [facility] at [facility] [place] 06/02[place]. Cath placed on 07/01/22 PVR > 600cc after failed voiding trial Pt had Ribeiro changed on 06/11/2022 at [facility]. Pt has a tremor and [...] performing a me (more content not included)... [facility] Comment on above: Result Comment: Elec tronically Signed By: David WELLS, Ivana Kirby\.br\Date and Time Signed: 11/25/22 18:15 EDT\.br\Electronically Co-Signed By: Mary Moore\.br\Date and Time Co-Signed: 11/25/22 10:06 EDT IntraOper[facility] Documentson 0 11-09-2022 Intra[facility] Documents [id number]#1.00CD:127 [facility] IntraOperative Documentson 0 10-27-2022 IntraOper[facility] Documents [id number]#1.00CD:127 [facility] Consent for Procedure/Surger yon 10-26-2022 Consent for Procedure/Surgery [id number]#1.00CD:127 [facility] Consent for Treatmenton 10-04 Consent for Treatment [id number]#1.00CD:127 [facility] IntraOperative Documentson 0 10-26-2022 IntraOperative Documents [id number]#1.00CD:127 [facility] Coding Queryon 10-21-2022 Coding Query - From: [...] dx, unable to modify existing computer order [facility] Physician Orderon 10-21-2022 Physician Order [id number]#1.00CD:127 [facility] C Urineon 10-14-2022 Bacteria identified Cx Nom [...] Locations R1: This test was performed at: [facility], [address] [place] [address], [address] , , [facility] Comment on above: Performed By: #### 2 [id number] ####[address] [place] [address] Consent for Treatmenton 10-03 Consent for Treatment [id number]#1.00CD:127 Normal [facility] Ambulatory Visit Summaryon 0 09-30-2022 Ambulatory [...] cholesterol HTN - Hypertension Kidney stone Normal [facility] Glucose Glucometer (BldC) [M ass/Vol]Ordered By: Pipe Sanchez on 09-25-2022 Glucose [Mass/Vol] 169 mg/dL [facility] Comment on above: Random Glucose Refer ence Range is dependent on time and content of last meal. Glucose of more than 200 mg/dL in a nonstressed, ambulatory subject supports the diagnosis of Diabetes Mellitus. Glucose Poct Glucometerson 0 09-25-2022 Commemt1 Glu2: Cleaned Meter Normal [facility] Comment on above: Result Comment: PERF ORMED BY: [place] [address] PATHOLOGIST [facility] LILLY LOTT M.D. Performed By: #### C K, CRP, CMP, CBC, ESR, TSH3 #### [address] #### ALDOLASE #### [facility] , Glucose [Mass/Vol] 169 mg/dL Normal [facility] Comment on above: Result Comment: [facility] Glucose Reference Range is dependent on time and content of last meal. Glucose of more than 200 mg/dL in a nonstressed, ambulatory subject supports the diagnosis of Diabetes Mellitus. Performed By: #### C K, CRP, CMP, CBC, ESR, TSH3 #### [facility] [address] #### ALDOLASE #### [facility] , Alcides 09-25-2022 L ------- Specimen: [id number] Received: 09/25/22 Status: KATJA Andrew Num: [id number] Spec Type: Surgical Subm Dr: Pipe Sanchez MD Tissues: A Duodenum - Biopsy (DUODENAL BX) Procedures: HE/2, Gross/Micro L4 Age/ Patient Sex Location Account Attending Physician Jamari Elizalde 82/F [id number] Pipe Sanchez MD SPEC NUM: [id number] RECD: 09/25/22 STATUS: KATJA ANDREW NUM: [id number] JOSE RAUL: 09/25/[address] [facility] [address]: Pipe Sanchez MD ENTERED: 09/25/22 [...] microscopic examination confirms the diagnosis. CPT Codes 25999 Specimen: [id number] Received: 09/25/22 Status: KATJA Andrew Num: [id number] Spec Type: Surgical Subm Dr: Pipe Sanchez MD Tissues: A Duodenum - Biopsy (DUODENAL BX) Procedures: HE/2, Gross/Micro L4 Patient: Jamari Elizalde [id number] (Continued) Signed (signature on file) Adore Kenyon MD 09/28/22 1057 Normal [facility] No Panel InformationOrdered By: Pipe Sanchez on 09-25-2022 Bedside Glucose Comment Glu2: cleaned meter [facility] CBC AUTO DIFFon 09-01-2022 BASO # 0.0 103/ul Normal 0.0-0.1 [facility] Comment on above: Performed By: #### L IPID, BMP, NA #### [facility] [address] [address] [address] Dilip Cartagena Basophils/100 WBC (Bld) 0.6 % Normal 0.2-2.0 [facility] Comment on above: Performed By: #### L IPID, BMP, NA #### [facility] [address] [address] [address] Dilip Cartagena EO # 0.3 103/ul Normal 0.0-0.7 [facility] Comment on above: Performed By: #### L IPID, BMP, NA #### [facility] [address] [place] [address] Dr. Dilip Cartagena Eosinophils/100 WBC (Bld) 3.9 % Normal 0.9-7.0 [facility] Comment on above: Performed By: #### L IPID, BMP, NA #### [facility] [address] [place] [address] Dr. Dilip Cartagena Erythrocyte distribution width (RBC) [Ratio] 14.1 % Normal 11.0-15.0 [facility] Comment on above: Performed By: #### L IPID, BMP, NA #### [facility] [address] [place] [address] Dr. Dilip Cartagena Hematocrit (Bld) [Volume fraction] 40.2 % Normal 36.0-48.0 [facility] Comment on above: Performed By: #### L IPID, BMP, NA #### [facility] [address] [place] [address] Dr. Dilip Cartagena Hemoglobin (Bld) [Mass/Vol] 13.5 g/dL Normal 12.0-16.0 [facility] Comment on above: Performed By: #### L IPID, BMP, NA #### [facility] [address] [place] [address] Dr. Dilip Cartagena IG # 0.03 10e3/ul Normal 0.00-0.03 [facility] Comment on above: Performed By: #### L IPID, BMP, NA #### [facility] [address] [place] [address] Dr. Dilip Cartagena IG % 0.4 % Normal 0.0-0.5 [facility] Comment on above: Performed By: #### L IPID, BMP, NA #### [facility] [address] [place] [address] Dr. Dilip Cartagena LYMPH # 2.4 103/ul Normal 1.2-3.8 [facility] Comment on above: Performed By: #### L IPID, BMP, NA #### [facility] [address] [place] [address] Dr. Dilip Cartagena Lymphocytes/100 WBC (Bld) 33.0 % Normal 20.5-60.0 [facility] Comment on above: Performed By: #### L IPID, BMP, NA #### [facility] [address] [place] [address] Dr. Dilip Cartagena MANUAL DIFF REQ NO Normal [facility] Comment on above: Performed By: #### L IPID, BMP, NA #### [facility] [address] [place] [address] Dr. Dilip Cartagena MCH (RBC) [Entitic mass] 31.1 pg Normal 26.7-34.0 [facility] Comment on above: Performed By: #### L IPID, BMP, NA #### [facility] [address] [place] [address] Dr. Dilip Cartagena MCHC (RBC) [Mass/Vol] 33.6 g/dL Normal 29.9-35.2 [facility] Comment on above: Performed By: #### L IPID, BMP, NA #### [facility] [address] [place] [address] Dr. Dilip Cartagena MCV (RBC) [Entitic vol] 92.6 fL Normal 81.0-99.0 [facility] Comment on above: Performed By: #### L IPID, BMP, NA #### [facility] [address] [place] [address] Dr. Dilip Cartagena MONO # 0.5 103/ul Normal 0.3-0.8 [facility] Comment on above: Performed By: #### L IPID, BMP, NA #### [facility] [address] [place] [address] Dr. Dilip Cartagena Monocytes/100 WBC (Bld) 6.9 % Normal 1.7-12.0 [facility] Comment on above: Performed By: #### L IPID, BMP, NA #### [facility] [address] [place] [address] Dr. Dilip Cartagena NEUT # 4.0 103/ul Normal 1.4-6.5 [facility] Comment on above: Performed By: #### L IPID, BMP, NA #### [facility] [address] [place] [address] Dr. Dilip Cartagena Neutrophils/100 WBC (Bld) 55.2 % Normal 43.0-75.0 [facility] Comment on above: Performed By: #### L IPID, BMP, NA #### [facility] [address] [place] [address] Dr. Dilip Cartagena Platelet mean volume (Bld) [Entitic vol] 7.9 fL Critically low 9.5-13.5 [facility] Comment on above: Performed By: #### L IPID, BMP, NA #### [facility] [address] [place] [address] Dr. Dilip Cartagena PLT 391 103/ul Normal 150-450 [facility] Comment on above: Performed By: #### L IPID, BMP, NA #### [facility] [address] [place] [address] Dr. Dilip Cartagena RBC 4.34 106/ul Normal 4.20-5.40 [facility] Comment on above: Performed By: #### L IPID, BMP, NA #### [facility] [address] [place] [address] Dr. Dilip Cartagena WBC 7.3 103/ul Normal 4.0-11.0 [facility] Comment on above: Performed By: #### L IPID, BMP, NA #### [facility] [address] [place] [address] Dr. Dilip Cartagena FREE T3on 09-01-2022 FREE T3 3.18 pg/mlL Normal 2.18-3.98 [facility] Comment on above: Performed By: #### U RCX #### [facility] [address] [place] [address] Dr. Dilip Cartagena FREE T4on 09-01-2022 Free T4 [Mass/Vol] 1.96 ng/dL Critically high 0.76-1.46 [facility] Comment on above: Performed By: #### P OCGLUC #### [facility] [address] [place] [address] Dr. Dilip Cartagena GLYCOHEMOGLOBIN A1Con 2022 ADA RECOMMENDATION SEE BELOW Normal [facility] Comment on above: Result Comment: ADA RECOMMENDED LIMIT 4.0 - 6.0 ADA THERAPEUTIC TARGET < 7.0 ACTION SUGGESTED > 7.0 Performed By: #### U RCX #### [facility] [address] [place] [address] Dr. Dilip Cartagena Glucose [Mass/Vol] 114 mg/dL Normal [facility] Comment on above: Performed By: #### U RCX #### [facility] [address] [place] [address] Dr. Dilip Cartagena HbA1c (Bld) [Mass fraction] 5.6 % Normal 4.5-6.2 [facility] Comment on above: Performed By: #### U RCX #### [facility] [address] [place] [address] Dr. Dilip Cartagena MAGNESIUMon 09-01-2022 Magnesium [Mass/Vol] 2.4 mg/dL Normal 1.8-2.4 [facility] Comment on above: Performed By: #### U RCX #### [facility] [address] [place] [address] Dr. Dilip Cartagena PROF 14(COMP METB)on 023 Albumin [Mass/Vol] 4.0 g/dL Normal 3.4-5.0 [facility] Comment on above: Performed By: #### U RCX #### [facility] [address] [place] [address] Dr. Dilip Cartagena Albumin/Globulin [Mass ratio] 1.1 {ratio} Normal [facility] Comment on above: Performed By: #### U RCX #### [facility] [address] [place] [address] Dr. Dilip Cartagena ALP [Catalytic activity/Vol] 87 U/L Normal 46-116 [facility] Comment on above: Performed By: #### U RCX #### [facility] [address] [place] [address] Dr. Dilip Cartagena ALT [Catalytic activity/Vol] 24 U/L Normal 14-59 [facility] Comment on above: Performed By: #### U RCX #### [facility] [address] [address] [address] Dilip Cartagena Anion gap [Moles/Vol] 13.2 mmol/L Normal [facility] Comment on above: Performed By: #### U RCX #### [facility] [address] [address] [address] Dilip Cartagena AST [Catalytic activity/Vol] 9 U/L Critically low 15-37 [facility] Comment on above: Performed By: #### U RCX #### [facility] [address] [address] [address] Dilip Cartagena Bilirubin [Mass/Vol] 0.5 mg/dL Normal 0.2-1.0 [facility] Comment on above: Performed By: #### U RCX #### [facility] [address] [address] [address] Dilip Cartagena Calcium [Mass/Vol] 9.5 mg/dL Normal 8.5-10.1 [facility] Comment on above: Performed By: #### U RCX #### [facility] [address] [place] [address] Dr. Dilip Cartagena Chloride [Moles/Vol] 94 mmol/L Critically low 98-107 [facility] Comment on above: Performed By: #### U RCX #### [facility] [address] [address] [address] Dilip Cartagena CO2 [Moles/Vol] 26.5 mmol/L Normal 21.0-32.0 [facility] Comment on above: Performed By: #### U RCX #### [facility] [address] [address] [address] Dilip Cartagena Creatinine [Mass/Vol] 0.94 mg/dL Normal 0.55-1.02 [facility] Comment on above: Performed By: #### U RCX #### [facility] [address] [address] [address] Dilip Cartagena EGFR-AF BAHRAINI >60 Normal >=60 [facility] Comment on above: Performed By: #### U RCX #### [facility] [address] [address] [address] Dilip Cartagena EGFR-NON AF BAHRAINI 57 mL/min/1.73m2 Critically low >=60 [facility] Comment on above: Performed By: #### U RCX #### [facility] [address] [address] [address] Dilip Cartagena Globulin (S) [Mass/Vol] 3.7 g/dL Normal [facility] Comment on above: Performed By: #### U RCX #### [facility] [address] [address] [address] Dilip Cartagena Glucose [Mass/Vol] 140 mg/dL Critically high 74-106 [facility] Comment on above: Performed By: #### U RCX #### [facility] [address] [address] [address] Dilip Cartagena Potassium [Moles/Vol] 4.7 mmol/L Normal 3.5-5.1 [facility] Comment on above: Performed By: #### U RCX #### [facility] [address] [address] [address] Dilip Cartagena Protein [Mass/Vol] 7.7 g/dL Normal 6.4-8.2 [facility] Comment on above: Performed By: #### U RCX #### [facility] [address] [address] [address] Dilip Cartagena Sodium [Moles/Vol] 129 mmol/L Critically low 136-145 [facility] Comment on above: Performed By: #### U RCX #### [facility] [address] [address] [address] Dilip Cartagena Urea nitrogen [Mass/Vol] 16.0 mg/dL Normal 7.0-18.0 [facility] Comment on above: Performed By: #### U RCX #### [facility] [address] [address] [address] Dilip Cartagena Urea nitrogen/Creatinine [Mass ratio] 17.0 mg/mg Normal [facility] Comment on above: Performed By: #### U RCX #### [facility] [address] [address] [address] Dilip Cartagena TSHon 09-01-2022 TSH 1.087 uIU/mL Normal 0.358-3.74 0 [facility] Comment on above: Performed By: #### U RCX #### [facility] [id number] Dilip Cartagena Ambulatory Visit Summaryon 0 [...] cholesterol HTN - Hypertension Kidney stone Normal [facility] Nurse Consultation Noteon Nurse Consultation Note [...] in 1m w/PVR w/MARQUEZ or KML Normal [facility] Screenson 08-10-2022 Screens [id number]:127 Normal [facility] Patient Educationon 08-08-19 23 Patient Education [...] health care provider. General instructions ? Take guzl-ugy-yyctgwy and prescription medicines only as told by [...] (more content not included)... Normal [facility] Urology Office/Clinic Noteon 08-07-2022 Urology Office/Clinic [...] such as MS. Suspected per cysto at [facility] in 2019 for gross hematuria. 3+ [...] urine, unspecified) Pt [place] [facility] [place]. Cath placed on 07/01/22 PVR > 600cc after failed voiding trial Pt had Ribeiro changed on 06/11/2022 at [facility]. Pt has a tremor and [...] Oral, Once (more content not included)... Normal [facility] Comment on above: Result Comment: Elec tronically Signed By: Ivana Hernandez MD\.br\Date and Time Signed: 08/07/22 13:46 EDT\.br\Electronically Co-Signed By: Lily Sood\.br\Date and Time Co-Signed: 08/07/22 11:45 EDT C reactive protein [Mass/vol ume] in Serum or PlasmaOrdered By: Johann Dolan on 07-30-2022 CRP [Mass/Vol] < 0.5 mg/dL 0.0-0.5 [facility] C-Reactive Proteinon 04-27-2 023 CRP [Mass/Vol] mg/L Normal 0.0-0.5 [facility] Comment on above: Result Comment: PERF ORMED BY: [place] [address] PATHOLOGIST [employer] LILLY LOTT M.D. Performed By: #### C K, CRP, CMP, CBC, ESR, TSH3 #### [facility] [address] [place] [address] #### ALDOLASE #### [facility] , Creatine Kinaseon 07-30-2022 CK [Catalytic activity/Vol] 344 U/L High [facility] Comment on above: Result Comment: PERF ORMED BY: [place] [address] PATHOLOGIST [employer] LILLY LOTT M.D. Performed By: #### S VICENTA COVID-19 KATELYN #### [address] Creatine kinase [Enzymatic a ctivity/volume] in Serum or PlasmaOrdered By: Johann Dolan on 07-30-2022 CK [Catalytic activity/Vol] 344 U/L [facility] Erythrocyte Sedimentation Ra yvonne 07-30-2022 ESR (Bld) [Velocity] 13 mm/h Normal 0-29 [facility] Comment on above: Result Comment: PERF ORMED BY: [place] [address] PATHOLOGIST [employer] LILLY LOTT M.D. Performed By: #### S VICENTA COVID-19 KATELYN #### [facility] [address] [place] [address] Erythrocyte sedimentation ra te by Photometric methodOrdered By: Johann Dolan on 07-30-2022 ESR Photometric method (Bld) [Velocity] 13 mm/hr 0-29 [facility] Ionized Calciumon 07-30-2022 Ionized Calcium 4.9 mg/dL Normal 4.5-5.6 [facility] Comment on above: Result Comment: Perf ormed at: CB - [address] [id number] Gameplay Programmer: Reggie Lazcano PhD, Phone: [phone] PERFORMED BY: [place] [address] PATHOLOGIST [employer] LILLY LOTT M.D. Performed By: #### C K, CRP, CMP, CBC, ESR, TSH3 #### [facility] [address] [place] [address] #### ALDOLASE #### [facility] , Parathyrin.intact [Mass/volu me] in Serum or PlasmaOrdered By: Johann Dolan on 07-30-2022 Parathyrin.intact [Mass/Vol] 34.7 pg/mL [facility] Parathyroid Hormone Intacton 07-30-2022 Parathyroid Hormone Intact 34.7 pg/mL Normal [facility] Comment on above: Result Comment: PERF ORMED BY: [place] [address] PATHOLOGIST [employer] LILLY LOTT M.D. Performed By: #### S DEONNA YADAV-Sina KATELYN #### [address] Parathyroid Hormone Related Pron 07-30-2022 Parathyroid Hormone Related Pr <2.0 Normal . [facility] Comment on above: Result Comment: This test [...] discordant, please contact the laboratory. Performed at: [facility] [address] [place] [phone] Gameplay Programmer: Pawel Fong MD, Phone: [phone] Performed By: #### C K, CRP, CMP, CBC, ESR, TSH3 #### [facility] [address] #### ALDOLASE #### [facility] , Serum ionized calcium measur ement using ion specific electrode (mass/volume)Ordered By: Johann Dolan on 07-30-2022 Calcium.ionized ISE [Mass/Vol] 4.9 mg/dL 4.5-5.6 [facility] Comment on above: Performed at: [facility] [address] [id number] Director: Reggie Lazcano PhD, Phone: [phone] Serum or plasma parathyroid hormone related peptide (PTHrP) measurement (moles/volumeOrdered By: Johann Dolan on 07-30-2022 Parathyrin related protein [Moles/Vol] <2.0 pmol/L . [facility] Comment on above: This test was develo [...] contact the laboratory.Performed at: ES - [facility] [place], [place] [id number] Director: Pawel Fong MD, Phone: [phone] Lab Reportson 07-29-2022 Lab Reports [id number]:127 Normal [facility] CULTURE URINEon 07-28-2022 CULTURE URINE Isolate [...] F Levofloxacin 0.25 S F Normal [facility] Comment on above: Performed By: #### U RCX #### [facility] [address] [place] [address] Dr. Dilip Cartagena UA RANDOM W/MICROSCOPICon BACTERIA LARGE Abnormal NONE SEEN [facility] Comment on above: Performed By: #### U RCX #### [facility] [address] [place] [address] Dr. Dilip Cartagena Bilirubin Ql (U) Negative Normal NEGATIVE [facility] Comment on above: Performed By: #### U RCX #### [facility] [address] [place] [address] Dr. Dilip Cartagena CA OX CRYSTALS FEW Normal [facility] Comment on above: Performed By: #### U RCX #### [facility] [address] [place] [address] Dr. Dilip Cartagena CAST NONE SEEN Normal NONE [facility] Comment on above: Performed By: #### U RCX #### [facility] [address] [place] [address] Dr. Dilip Cartagena Clarity (U) CLEAR Normal CLEAR [facility] Comment on above: Performed By: #### U RCX #### [facility] [address] [place] [address] Dr. Dilip Cartagena Color (U) LT. YELLOW Normal YELLOW [facility] Comment on above: Performed By: #### U RCX #### [facility] [address] [place] [address] Dr. Dilip Cartagena Crystals LM Nom (Urine sed) SEEN Abnormal NONE [facility] Comment on above: Performed By: #### U RCX #### [facility] [address] [place] [address] Dr. Dilip Cartagena Epithelial cells LM Ql (Urine sed) FEW Abnormal NONE SEEN /RARE [facility] Comment on above: Performed By: #### U RCX #### [facility] [address] [address] [address] Dilip Cartagena Glucose Ql (U) Negative Normal NEGATIVE [facility] Comment on above: Performed By: #### U RCX #### [facility] [address] [place] [address] Dr. Dilip Cartagena Hemoglobin Ql (U) SMALL Abnormal NEGATIVE [facility] Comment on above: Performed By: #### U RCX #### [facility] [address] [place] [address] Dr. Dilip Cartagena Ketones Ql (U) Negative Normal NEGATIVE [facility] Comment on above: Performed By: #### U RCX #### [facility] [address] [place] [address] Dr. Dilip Cartagena LEUKOCYTES LARGE Abnormal NEGATIVE [facility] Comment on above: Performed By: #### U RCX #### [facility] [address] [place] [address] Dr. Dilip Cartagena MUCOUS NONE SEEN Normal NONE SEEN [facility] Comment on above: Performed By: #### U RCX #### [facility] [address] [place] [address] Dr. Dilip Cartagena Nitrite Ql (U) Positive Abnormal NEGATIVE [facility] Comment on above: Performed By: #### U RCX #### [facility] [address] [place] [address] Dr. Dilip Cartagena pH (U) 5.5 [pH] Normal 5-9 [facility] Comment on above: Performed By: #### U RCX #### [facility] [address] [place] [address] Dr. Dilip Cartagena RBC 0-2 Normal 0-2 [facility] Comment on above: Performed By: #### U RCX #### [facility] [address] [place] [address] Dr. Dilip Cartagena SPEC GRAVITY 1.020 Normal 1.005-<=1. 025 [facility] Comment on above: Performed By: #### U RCX #### [facility] [address] [address] [address] Dilip Cartagena UA PROTEIN 30 mg/dl Abnormal NEGATIVE/ TRACE [facility] Comment on above: Performed By: #### U RCX #### [facility] [address] [address] [address] Dilip Cartagena Urobilinogen Qn (U) 0.2 {Hallie'U}/dL Normal 0.2 - 1. 0 [facility] Comment on above: Performed By: #### U RCX #### [facility] [address] [place] [address] Dr. Dilip Cartagena WBC 20-50 Abnormal NONE SEEN [facility] Comment on above: Performed By: #### U RCX #### [facility] [address] [place] [address] Dr. Dilip Cartagena Ambulatory Visit Summaryon 0 [...] URO When: Where: [address] [place] [phone] Medications What How Much When Why Instructions [...] This condit (more content not included)... Normal [facility] Patient Educationon 07-16-19 23 Patient Education [...] health care provider. General instructions ? Take nbse-uab-axdcvjf and prescription medicines only as told by [...] Chills. ? (more content not included)... Normal [facility] Urology Office/Clinic Noteon 07-15-2022 Urology Office/Clinic Note Chief Complaint 2 week follow up HPI Staff Pt currently has a cath was replaced at last visit on 07/01/22. 2wk PVR following ribeiro removal on 07/01/22. [place]02[place] [facility] [place]inary [place]/NGB. Additional DX:Adrenal Nodule, [...] voiding trial Pt had Ribeiro placed [place] [facility] [place] Pt had Ribeiro changed on 06/11/2022 at [facility] Pt has a tremor and [...] on CT Scan done on 06/02/2022 at [facility] Pt states that she has known about it for years, states it is stable. Declined metabolic workup at this time 4. UTI (urinary tract infection) (N39.0: Urinary tract infection, site not specified) UTI (asymptomatic) 05/05/2022[facility] 06/[facility]/20[facility] - ribeiro exchange Discussed risks of recurrence given incomplete emptying, denies complicated UTIs Follow-up With When Contact Information David WELLS, Ivana Kirby, URL, URO [address] [place] [phone] Additional Instructions: Pt will f/u in 1 [...] BID aspirin (more content not included)... Normal [facility] Comment on above: Result Comment: [...] 1:00 PM EDT Where: [facility] Ambulatory Visit Summary JAMARI ELIZALDE :1940 Visit [...] 1:00 PM EDT Where: [facility] Patient Educationon 07-02-19 23 Patient Education Urology [...] health care provider. General instructions ? Take jjct-gge-orkwrsq and prescription medicines only as told by [...] Chills. ? (more content not included)... Normal [facility] Screenson 07-01-2022 Screens [id number]:127 Normal [facility] PTH INTACTon 06-20-2022 PTH, Intact 28 pg/mL Normal 15-65 [facility] Comment on above: Performed By: #### L IPID, BMP, NA #### [facility] [address] [address] [address] Dilip Cartagena GGTon 06-19-2022 Gamma glutamyl transferase [Catalytic activity/Vol] 22 U/L Normal 8-55 [facility] Comment on above: Performed By: #### U RCX #### [facility] [address] [place] [address] Dr. Dilip Cartagena LIPID PROFILEon 06-19-2022 CHOL-HDL RATIO NORM SEE BELOW Normal [facility] Comment on above: Result Comment: 3.3 - 4.4 LOW RISK 4.4 - 7.1 AVERAGE RISK 7.1 - 11.0 MODERATE RISK >11.0 HIGH RISK Performed By: #### L IPID, BMP, NA #### [facility] [address] [address] [address] Dilip Cartagena Cholesterol [Mass/Vol] 163 mg/dL Normal <=200 [facility] Comment on above: Performed By: #### L IPID, BMP, NA #### [facility] [address] [address] [address] Dilip Cartagena Cholesterol in HDL [Mass/Vol] 46 mg/dL Normal 40-60 [facility] Comment on above: Performed By: #### L IPID, BMP, NA #### [facility] [address] [address] [address] Dilip Cartagena Cholesterol in LDL [Mass/Vol] 101.6 mg/dL Normal [facility] Comment on above: Performed By: #### L IPID, BMP, NA #### [facility] [address] [place] [address] Dr. Dilip Cartagena Cholesterol.total/Chol esterol in HDL [Mass ratio] 3.5 {ratio} Normal [facility] Comment on above: Performed By: #### L IPID, BMP, NA #### [facility] [address] [place] [address] Dr. Dilip Cartagena HDL NORMAL > or = 60 mg/dl - LO W CARDIOVASCULAR RISK <40 mg/dl - HIGH CARDIOVASCULAR RISK Normal [facility] Comment on above: Performed By: #### L IPID, BMP, NA #### [facility] [address] [place] [address] Dr. Dilip Cartagena LDL CALC NORMAL SEE BELOW Normal [facility] Comment on above: Result Comment: <100 mg/dl OPTIMAL 100 - 129 mg/dl NEAR OR ABOVE OPTIMAL 130 - 159 mg/dl BORDERLINE HIGH 160 - 189 mg/dl HIGH >190 mg/dl VERY HIGH Performed By: #### L IPID, BMP, NA #### [facility] [address] [place] [address] Dr. Dilip Cartagena Triglyceride [Mass/Vol] 77 mg/dL Normal <=150 [facility] Comment on above: Performed By: #### L IPID, BMP, NA #### [facility] [address] [place] [address] Dr. Dilip Cartagena VLDL CALC 15.4 mg/dL Normal [facility] Comment on above: Performed By: #### L IPID, BMP, NA #### [facility] [address] [place] [address] Dr. Dilip Cartagena PROF CHEM 8 (BAS METB)on Anion gap [Moles/Vol] 17.9 mmol/L Normal [facility] Comment on above: Performed By: #### L IPID, BMP, NA #### [facility] [address] [place] [address] Dr. Dilip Cartagena Calcium [Mass/Vol] 9.0 mg/dL Normal 8.5-10.1 [facility] Comment on above: Performed By: #### L IPID, BMP, NA #### [facility] [address] [place] [address] Dr. Dilip Cartagena Performed By: #### U RCX #### [facility] [address] [address] [address] Dilip Cartagena Chloride [Moles/Vol] 98 mmol/L Normal 98-107 [facility] Comment on above: Performed By: #### L IPID, BMP, NA #### [facility] [address] [place] [address] Dr. Dilip Cartagnea CO2 [Moles/Vol] 21.9 mmol/L Normal 21.0-32.0 [facility] Comment on above: Performed By: #### L IPID, BMP, NA #### [facility] [address] [place] [address] Dr. Dilip Cartagena Creatinine [Mass/Vol] 0.68 mg/dL Normal 0.55-1.02 [facility] Comment on above: Performed By: #### L IPID BMP, NA #### [facility] [address] [place] [address] Dr. Dilip Cartagena EGFR-AF BAHRAINI >60 Normal >=60 [facility] Comment on above: Performed By: #### L IPID, BMP, NA #### [facility] [address] [place] [address] Dr. Dilip Cartagena EGFR-NON AF BAHRAINI >60 Normal >=60 [facility] Comment on above: Performed By: #### L IPID BMP, NA #### [facility] [address] [place] [address] Dr. Dilip Cartagena Glucose [Mass/Vol] 114 mg/dL Critically high 74-106 [facility] Comment on above: Performed By: #### L IPID, BMP, NA #### [facility] [address] [place] [address] Dr. Dilip Cartagena Potassium [Moles/Vol] 4.8 mmol/L Normal 3.5-5.1 [facility] Comment on above: Performed By: #### L IPID, BMP, NA #### [facility] [address] [place] [address] Dr. Dilip Cartagena Sodium [Moles/Vol] 133 mmol/L Critically low 136-145 [facility] Comment on above: Performed By: #### L IPID, BMP, NA #### [facility] [address] [place], [place] [address] Dr. Dilip Cartagena Urea nitrogen [Mass/Vol] 17.0 mg/dL Normal 7.0-18.0 [facility] Comment on above: Performed By: #### L IPID, BMP, NA #### [facility] [address] [place], [place] [address] Dr. Dilip Cartagena Urea nitrogen/Creatinine [Mass ratio] 25.0 mg/mg Normal [facility] Comment on above: Performed By: #### L IPID, BMP, NA #### [facility] [address] [place], [place] [address] Dr. Dilip Cartagena NA (Sodium)on 06-15-2022 Sodium [Moles/Vol] 130 mmol/L Low 135-144 [facility] Comment on above: Performed By: #### N A #### [facility] [address] [address] Gameplay Programmer: Loretta Davis MD Sodiumon 06-15-2022 Interpretation and review of laboratory results Abnormal [facility] Sodium [Moles/Vol] 130 mmol/L Low 135 - 144 mmol/L [facility] NA (Sodium)on 06-12-2022 Sodium [Moles/Vol] 123 mmol/L Low 135-144 [facility] Comment on above: Performed By: #### N A #### [facility] [address] [place] [address] Gameplay Programmer: Loretta Davis MD Sodiumon 06-12-2022 Interpretation and review of laboratory results Abnormal [facility] Sodium [Moles/Vol] 123 mmol/L Low 135 - 144 mmol/L [facility] Cult,Urineon 06-10-2022 Cult,Urine Specimen Description .CLEAN CATCH URINE Culture ENTEROCOCCUS FAECALIS >[id number] CFU/ML Report Status FINAL 06/10/2022 SUSCEPTIBILITY Organism ENTEROCOCCUS FAECALIS Method [facility] Ampicillin <=2 SUSCEPTIBLE Ciprofloxacin 1 SUSCEPTIBLE Levofloxacin 1 SUSCEPTIBLE Nitrofurantoin <=16 SUSCEPTIBLE Tetracycline <=1 SUSCEPTIBLE Vancomycin 1 SUSCEPTIBLE Susceptible [facility] Comment on above: Performed By: #### U RC #### [facility] [address] [place], [place] [phone] Gameplay Programmer: Lemuel Chan MD [facility] [address] [place] [address] Gameplay Programmer: Loretta Davis MD Lipid Panelon 06-10-2022 Cholesterol [Mass/Vol] 190 mg/dL NINF - 200 mg/dL [facility] Comment on above: Cholesterol Guidelines: <200 Desirable 200-240 Borderline >240 Undesirable Cholesterol in HDL [Mass/Vol] 51 mg/dL 40 - PINF mg/dL [facility] Comment on above: HDL Guidelines: <40 Undesirable 40-59 Borderline >59 Desirable Cholesterol in LDL [Mass/Vol] 103 mg/dL 0 - 130 mg/dL [facility] Comment on above: LDL Guidelines: <100 Desirable 100-129 Near to/above Desirable 130-159 Borderline >159 Undesirable Direct (measured) LDL and calculated LDL are not interchangeable tests. Cholesterol.total/Chol esterol in HDL [Mass ratio] 3.7 {ratio} NINF - 5 [facility] Interpretation and review of laboratory results Abnormal [facility] Triglyceride [Mass/Vol] 179 mg/dL High NINF - 150 mg/dL [facility] Comment on above: Triglyceride Guidelines: <150 Desirable 150-199 Borderline 200-499 High >499 Very high Based on AHA Guidelines for fasting triglyceride, January 2012. [facility] Lipid Profileon 06-10-2022 Cholesterol [Mass/Vol] 190 mg/dL Normal <200 [facility] Comment on above: Result Comment: Cholesterol Guidelines: <200 Desirable 200-240 Borderline >240 Undesirable Performed By: #### T SH #### [facility] [address] [place] [address] Gameplay Programmer: Loretta Davis MD #### LIPR #### [facility] [address] [place], [place] [phone] Gameplay Programmer: Lemuel Chan MD Cholesterol in HDL [Mass/Vol] 51 mg/dL Normal >40 [facility] Comment on above: Result Comment: HDL Guidelines: <40 Undesirable 40-59 Borderline >59 Desirable Performed By: #### T SH #### [facility] [address] [place] [address] [address] [phone] Gameplay Programmer: Loretta Davis MD #### LIPR #### [address] [phone] Gameplay Programmer: Lemuel Chan MD Cholesterol in LDL [Mass/Vol] 103 mg/dL Normal 0-130 [facility] Comment on above: Result Comment: LDL Guidelines: <100 Desirable 100-129 Near to/above Desirable 130-159 Borderline >159 Undesirable Direct (measured) LDL and calculated LDL are not interchangeable tests. Performed By: #### T SH #### [facility] [address] [place] [address] [address] [phone] Gameplay Programmer: Loretta Davis MD #### LIPR #### [address] [phone] Gameplay Programmer: Lemuel Chan MD Cholesterol.total/Chol esterol in HDL [Mass ratio] 3.7 {ratio} Normal <5 [facility] Comment on above: Performed By: #### T SH #### [facility] [address] [place] [address] Dr[address] [phone] Gameplay Programmer: Loretta Davis MD #### LIPR #### [address] [address] Gameplay Programmer: Lemuel Chan MD Triglyceride [Mass/Vol] 179 mg/dL High <150 [facility] Comment on above: Result Comment: Triglyceride Guidelines: <150 Desirable 150-199 Borderline 200-499 High >499 Very high Based on AHA Guidelines for fasting triglyceride, January 2012. Performed By: #### T SH #### [facility] [address] [place] [address] Dr. [address] [phone] Gameplay Programmer: Loretta Davis MD #### LIPR #### [facility] [address] [place], [place] [phone] Gameplay Programmer: Lemuel Chan MD TSHon 06-10-2022 TSH Qn 1.20 m[IU]/L [facility] Thyroid Stim. Horm.on 2022 Thyroid Stim. Horm. 1.20 uIU/mL Normal 0.30-5.00 [facility] Comment on above: Performed By: #### T SH #### [address] [place] [address] Gameplay Programmer: Loretta Davis MD #### LIPR #### [id number] [place], [place] [phone] Gameplay Programmer: Lemuel Chan MD CBCon 06-09-2022 Erythrocyte distribution width (RBC) [Ratio] 13.1 % Normal 11.8-14.4 [facility] Comment on above: Performed By: #### C BC, CP #### [address], [place] [phone] Gameplay Programmer: Loretta Davis MD Hematocrit (Bld) [Volume fraction] 37.0 % Normal 36.3-47.1 [facility] Comment on above: Performed By: #### C BC, CP #### [address] [place] [id number] Gameplay Programmer: Loretta Davis MD Hemoglobin (Bld) [Mass/Vol] 12.6 g/dL Normal 11.9-15.1 [facility] Comment on above: Performed By: #### C BC, CP #### [address] [place] [address] Gameplay Programmer: Loretta Davis MD MCH (RBC) [Entitic mass] 31.7 pg Normal 25.2-33.5 [facility] Comment on above: Performed By: #### C BC, CP #### [address] [place], [place] [id number] Gameplay Programmer: Loretta Davis MD MCHC (RBC) [Mass/Vol] 34.1 g/dL Normal 28.4-34.8 [facility] Comment on above: Performed By: #### C BC, CP #### [address] [place], [place] [phone] Gameplay Programmer: Loretta Davis MD MCV (RBC) [Entitic vol] 93.0 fL Normal 82.6-102.9 [facility] Comment on above: Performed By: #### C VU, CP #### [address] [place], [place] [id number] Gameplay Programmer: Loretta Davis MD NRBC Automated 0.0 per 100 WBC Normal 0.0 [facility] Comment on above: Performed By: #### C VU, CP #### [address] [place], [place] [phone] Gameplay Programmer: Loretta Davis MD Platelet mean volume (Bld) [Entitic vol] 8.4 fL Normal 8.1-13.5 [facility] Comment on above: Performed By: #### C VU, CP #### [address] [place], [place] [phone] Gameplay Programmer: Loretta Davis MD Platelets (Bld) [#/Vol] 387 10*3/uL Normal 138-453 [facility] Comment on above: Performed By: #### C VU, CP #### [address] [place], [place] [phone] Gameplay Programmer: Loretta Davis MD RBC (Bld) [#/Vol] 3.98 10*6/uL Normal 3.95-5.11 [facility] Comment on above: Performed By: #### C VU, CP #### [address] [place], [place] [phone] Gameplay Programmer: Loretta Davis MD WBC (Bld) [#/Vol] 9.6 10*3/uL Normal 3.5-11.3 [facility] Comment on above: Performed By: #### C VU, CP #### [facility] [address] [place] [address] Gameplay Programmer: Loretta Davis MD Hematocrit (Bld) [Volume fraction] 37.0 % 36.3 - 47.1 % [facility] Hemoglobin (Bld) [Mass/Vol] 12.6 g/dL 11.9 - 15.1 g/dL [facility] MCH (RBC) [Entitic mass] 31.7 pg 25.2 - 33.5 pg [facility] MCHC (RBC) [Mass/Vol] 34.1 g/dL 28.4 - 34.8 g/dL [facility] MCV (RBC) [Entitic vol] 93.0 fL 82.6 - 102.9 fL [facility] NRBC Automated 0.0 0.0 per 100 WBC [facility] Platelet distribution width (Bld) [Ratio] 13.1 % 11.8 - 14.4 % [facility] Platelet mean volume (Bld) [Entitic vol] 8.4 fL 8.1 - 13.5 fL [facility] Platelets (Bld) [#/Vol] 387 10*3/uL [facility] RBC (Bld) [#/Vol] 3.98 10*6/uL 3.95 - 5.11 m/uL [facility] WBC (Bld) [#/Vol] 9.6 10*3/uL [facility] Comp Metabolic Profon 2022 Albumin [Mass/Vol] 4.1 g/dL Normal 3.5-5.2 [facility] Comment on above: Performed By: #### C VU, CP #### [facility] [address] [place] [address] Gameplay Programmer: Loretta Davis MD Albumin/Glob Ratio 1.6 Normal 1.0-2.5 [facility] Comment on above: Performed By: #### C BC, CP #### [facility] [address] [place], [place] [phone] Gameplay Programmer: Loretta Davis MD Alkaline Phos 68 U/L Normal 35-104 [facility] Comment on above: Performed By: #### C BC, CP #### [facility] [address] [place], [place] [phone] Gameplay Programmer: Loretta Davis MD ALT [Catalytic activity/Vol] 27 U/L Normal 5-33 [facility] Comment on above: Performed By: #### C BC, CP #### [facility] [address] [place], [place] [phone] Gameplay Programmer: Loretta Davis MD Anion gap [Moles/Vol] 13 mmol/L Normal 9-17 [facility] Comment on above: Performed By: #### C BC, CP #### [facility] [address] [place], [place] [phone] Gameplay Programmer: Loretta Davis MD AST [Catalytic activity/Vol] 19 U/L Normal <32 [facility] Comment on above: Performed By: #### C BC, CP #### [facility] [address] [place], [place] [phone] Gameplay Programmer: Loretta Davis MD Bilirubin [Mass/Vol] 0.2 mg/dL Low 0.3-1.2 [facility] Comment on above: Performed By: #### C BC, CP #### [facility] [address] [place], [place] [phone] Gameplay Programmer: Loretta Davis MD BUN/CRE Ratio 31 High 9-20 [facility] Comment on above: Performed By: #### C BC, CP #### [facility] [address] [place], [place] [phone] Gameplay Programmer: Loretta Davis MD Calcium [Mass/Vol] 9.6 mg/dL Normal 8.6-10.4 [facility] Comment on above: Performed By: #### C BC, CP #### [facility] [address] [place], [place] [phone] Gameplay Programmer: Loretta Davis MD Chloride [Moles/Vol] 91 mmol/L Low 98-107 [facility] Comment on above: Performed By: #### C VU, CP #### [facility] [address] [place] [address] Gameplay Programmer: Loretta Davis MD CO2 [Moles/Vol] 26 mmol/L Normal 20-31 [facility] Comment on above: Performed By: #### C VU, CP #### [facility] [address] [place] [address] Gameplay Programmer: Loretta Davis MD Creatinine [Mass/Vol] 0.65 mg/dL Normal 0.50-0.90 [facility] Comment on above: Performed By: #### C VU, CP #### [facility] [address] [place] [address] [place] [address] Gameplay Programmer: Loretta Davis MD GFR/1.73 sq M.predicted among non-blacks MDRD (S/P/Bld) [Vol rate/Area] mL/min/{1.73_m2} Normal >60 [facility] Comment on above: Result Comment: These [...] By: #### C VU, CP #### [facility] [address] [place] [address] Gameplay Programmer: Loretta Davis MD Glucose [Mass/Vol] 125 mg/dL High 70-99 [facility] Comment on above: Performed By: #### C BC, CP #### [facility] [address] [place] [address] Gameplay Programmer: Loretta Davis MD Potassium [Moles/Vol] 4.3 mmol/L Normal 3.7-5.3 [facility] Comment on above: Performed By: #### C BC, CP #### [facility] [address] [place] [address] Gameplay Programmer: Loretta Davis MD Protein [Mass/Vol] 6.7 g/dL Normal 6.4-8.3 [facility] Comment on above: Performed By: #### C VU, CP #### [facility] [address] [place] [address] Gameplay Programmer: Loretta Davis MD Sodium [Moles/Vol] 130 mmol/L Low 135-144 [facility] Comment on above: Performed By: #### C UV, CP #### [facility] [address] [place], [place] [phone] Gameplay Programmer: Loretta Davis MD Urea nitrogen [Mass/Vol] 20 mg/dL Normal 8-23 [facility] Comment on above: Performed By: #### C VU, CP #### [facility] [address] [place] [address] Gameplay Programmer: Loretta Davis MD Comprehensive Metabolic Pane [facility] 06-09-2022 Albumin [Mass/Vol] 4.1 g/dL 3.5 - 5.2 g/dL [facility] Albumin/Globulin [Mass ratio] 1.6 {ratio} 1.0 - 2.5 [facility] ALP [Catalytic activity/Vol] 68 U/L 35 - 104 U/L [facility] ALT [Catalytic activity/Vol] 27 U/L 5 - 33 U/L [facility] Anion gap [Moles/Vol] 13 mmol/L 9 - 17 mmol/L [facility] AST [Catalytic activity/Vol] 19 U/L NINF - 32 U/L [facility] Bilirubin [Mass/Vol] 0.2 mg/dL Low 0.3 - 1 .2 mg/dL [facility] Calcium [Mass/Vol] 9.6 mg/dL 8.6 - 10. 4 mg/dL [facility] Chloride [Moles/Vol] 91 mmol/L Low 98 - 10 7 mmol/L [facility] CO2 [Moles/Vol] 26 mmol/L 20 - 31 mmol/L [facility] Creatinine [Mass/Vol] 0.65 mg/dL 0.50 - 0.90 mg/dL [facility] GFR/1.73 sq M.predicted MDRD (S/P/Bld) [Vol rate/Area] - PINF [facility] Comment on above: These results are not [...] mg/dL High 70 - 99 mg/dL [facility] Interpretation and review of laboratory results Abnormal [facility] Potassium [Moles/Vol] 4.3 mmol/L 3.7 - 5.3 mmol/L [facility] Protein [Mass/Vol] 6.7 g/dL 6.4 - 8.3 g/dL [facility] Sodium [Moles/Vol] 130 mmol/L Low 135 - 144 mmol/L [facility] Urea nitrogen [Mass/Vol] 20 mg/dL 8 - 23 mg/dL [facility] Urea nitrogen/Creatinine (Bld) [Mass ratio] 31 High 9 - 20 [facility] Microscopic Urinalysison Bacteria, UA 2+ Abnormal None [facility] Epithelial Cells UA 2 TO 5 [facility] Interpretation and review of laboratory results Abnormal [facility] Mucus, UA 1+ Abnormal None [facility] RBC clumps Auto (Urine sed) [#/Area] 10 TO 20 [facility] WBC, UA 10 TO 20 [facility] Urinalysison 06-07-2022 Bilirubin Urine Negative NEGATIVE [facility] Color, UA Yellow Yellow [facility] Glucose Auto test strip (U) [Mass/Vol] Negative NEGATIVE [facility] Interpretation and review of laboratory results Abnormal [facility] Ketones (U) [Mass/Vol] Negative NEGATIVE [facility] Leukocyte esterase Auto test strip Ql (U) SMALL Abnormal NEGATIVE [facility] Nitrite Auto test strip Ql (U) Negative NEGATIVE [facility] Protein (U) [Mass/Vol] 6.0 mg/dL 5.0 - 9.0 [facility] Protein (U) [Mass/Vol] 2+ Abnormal NEGATIVE [facility] Specific [place], UA 1.025 High 1.010 - 1.020 [facility] Turbidity UA Clear Clear [facility] Urine Hgb 2+ Abnormal NEGATIVE [facility] Urobilinogen, Urine Normal Normal [facility] Urinalysis, Routineon 2022 Bilirubin, SemiQt,Ur Negative Normal NEG [facility] Comment on above: Performed By: #### U MICAO, UA #### [facility] [address] [place] [address] Gameplay Programmer: Loretta Davis MD Blood, Urine 2+ Abnormal NEG [facility] Comment on above: Performed By: #### U MICAO, UA #### [facility] [address] [place] [place] [address] Gameplay Programmer: Loretta Davis MD Clarity (U) Clear Normal CLEAR [facility] Comment on above: Performed By: #### U MICAO, UA #### [facility] [address] [place] [place] [address] Gameplay Programmer: Loretta Davis MD Color (U) Yellow Normal YEL [facility] Comment on above: Performed By: #### U MICAO, UA #### [facility] [address] [place], [place] [phone] Gameplay Programmer: Loretta Davis MD Glucose Ql (U) Negative Normal NEG [facility] Comment on above: Performed By: #### U MICAO, UA #### [facility] [address] [place], [place] [phone] Gameplay Programmer: Loretta Davis MD Ketones Ql (U) Negative Normal NEG [facility] Comment on above: Performed By: #### U MICAO, UA #### [facility] [address] [place], [place] [phone] Gameplay Programmer: Loretta Davis MD Leukocyte esterase Test strip Ql (U) SMALL Abnormal NEG [facility] Comment on above: Performed By: #### U MICAO, UA #### [facility] [address] [place] [address] Gameplay Programmer: Loretta Davis MD Nitrite,Ur Negative Normal [facility] Comment on above: Performed By: #### U MICAO, UA #### [facility] [address] [place], [place] [phone] Gameplay Programmer: Loretta Davis MD PH,Ur 6.0 Normal 5.0-9.0 [facility] Comment on above: Performed By: #### U MICAO, UA #### [facility] [address] [place], [place] [phone] Gameplay Programmer: Loretta Davis MD Protein Ql (U) 2+ Abnormal NEG [facility] Comment on above: Performed By: #### U MICAO, UA #### [facility] [address] [place], [place] [phone] Gameplay Programmer: Loretta Davis MD Spec. [place],Ur 1.025 High 1.010-1.02 0 [facility] Comment on above: Performed By: #### U MICAO, UA #### [facility] [address] [place] [address] Gameplay Programmer: Loretta Davis MD Urobilinogen,Ur Normal Normal NORM [facility] Comment on above: Performed By: #### U MICAO, UA #### [facility] [address] [place], [place] [phone] Gameplay Programmer: Loretta Davis MD Urinalysis,Microon 3 Bacteria 2+ Abnormal NONE [facility] Comment on above: Performed By: #### U MICAO, UA #### [facility] [address] [place], [place] [phone] Gameplay Programmer: Loretta Davis MD Epithelial cells LM Ql (Urine sed) 2 TO 5 Normal 0-25 [facility] Comment on above: Performed By: #### U MICAO, UA #### [facility] [address] [place], [place] [phone] Gameplay Programmer: Loretta Davis MD Mucus Strands 1+ Abnormal NONE [facility] Comment on above: Performed By: #### U MICAO, UA #### [facility] [address] [place], [place] [phone] Gameplay Programmer: Loretta Davis MD Urine RBC's 10 TO 20 Normal 0-2 [facility] Comment on above: Performed By: #### U MICAO, UA #### [facility] [address] [place] [address] Gameplay Programmer: Loretta Davis MD Urine WBC's 10 TO 20 Normal 0-5 [facility] Comment on above: Performed By: #### U MICAO, UA #### [facility] [address] [place] [address] Gameplay Programmer: Loretta Davis MD COVID-19 Antigenon 3 COVID-19 [...] developed and its performance characteristic determined by [employer] and validated at [facility] This test has not been FDA cleared [...] for SARS Antigen by YANELY PERFORMED BY: [facility] [address] [place] [address] PATHOLOGIST [employer] LILLY LOTT M.D. [facility] Comment on above: Performed By: #### S VICENTA COVID-19 KATELYN #### [facility] [address] Katelyn Ag Negativeon 06-04-19 23 Katelyn Ag Negative Negative Normal Negative [facility] Comment on above: Result Comment: This is a duplicate Katelyn SARS Antigen (YANELY) result to be used for statistical tracking purpose only. PERFORMED BY: [place] [address] PATHOLOGIST [employer] LILLY LOTT M.D. Performed By: #### S VICENTA, COVID-19 KATELYN #### [address] Albumin [Mass/volume] in Bod y fluidOrdered By: Tatianna Hilario on 06-02-2022 Albumin (Body fld) [Mass/Vol] 3.9 g/dL 3.2-5.5 [facility] Alkaline phosphatase [Enzyma tic activity/volume] in Serum or PlasmaOrdered By: Tatianna Hilario on 06-02-2022 ALP [Catalytic activity/Vol] 59 U/L 32-92 [facility] Amphetamine Screen Ql (U)Ord ered By: Tatianna Hilario on 06-02-2022 Amphetamines Ql (U) Negative Negative [facility] Aspartate aminotransferase [ Enzymatic activity/volume] in Serum or PlasmaOrdered By: Tatianna Hilario on 06-02-2022 AST [Catalytic activity/Vol] 25 U/L 10-42 [facility] Barbiturates [Presence] in U rineOrdered By: Tatianna Hilario on 06-02-2022 Barbiturates Ql (U) Negative Negative [facility] Basophils Auto (Bld) [#/Vol] Ordered By: Tatianna Hilario on 06-02-2022 Basophils (Bld) [#/Vol] 0.0 10*3/uL 0.0-0.2 [facility] Basophils/100 WBC Auto (Bld) Ordered By: Tatianna Hilario on 06-02-2022 Basophils/100 WBC (Bld) 0.6 % . [facility] Benzodiazepines [Presence] i n UrineOrdered By: Tatianna Hilario on 06-02-2022 Benzodiazepines Ql (U) Positive [facility] Bilirubin Test strip Ql (U)O rdered By: Tatianna Hilario on 06-02-2022 Bilirubin Ql (U) Negative Negative [facility] Bilirubin.total [Mass/volume ] in Serum or PlasmaOrdered By: Tatianna Hilario on 06-02-2022 Bilirubin [Mass/Vol] 0.3 mg/dL 0.3-1.2 [facility] COVID-19 SOFIAOrdered By: Sachin Oro on 06-02-2022 SARS-CoV+SARS-CoV-2 (COVID-19) Ag IA.rapid Ql (Resp) Negative Negative [facility] Comment on above: This is a duplicate Katelyn SARS Antigen (YANELY) result to be used for statistical tracking purpose only. Calcium [Mass/volume] in Ser um or PlasmaOrdered By: Tatianna Hilario on 06-02-2022 Calcium [Mass/Vol] 9.6 mg/dL 8.2-10.2 [facility] Cannabinoids [Presence] in U rine by Screen methodOrdered By: Tatianna Hilario on 06-02-2022 Cannabinoids Screen Ql (U) Negative Negative [facility] Comment on above: These are unconfirme d results and should not be used for legal purposes. Drug Cut-Off Concentration: AMPH 1000 ng/mL CESAR 200 ng/mL DIONNE 200 ng/mL COCM 300 ng/mL OP 300 ng/mL PCP 25 ng/mL THC 20 ng/mL Carbon dioxide, total [Moles /volume] in Serum or PlasmaOrdered By: Tatianna Hilario on 06-02-2022 CO2 [Moles/Vol] 24.5 mmol/L 22.0-30.0 [facility] Chloride [Moles/volume] in S vasquez or PlasmaOrdered By: Tatianna Hilario on 06-02-2022 Chloride [Moles/Vol] 94 mmol/L 95-114 [facility] Color Auto (U)Ordered By: Shahid Hilario on 06-02-2022 Color (U) Yellow Yellow [facility] Complete Blood Count Auto Di ffon 06-02-2022 Basophils (Bld) [#/Vol] 0.0 10*3/uL Normal 0.0-0.2 [facility] Comment on above: Result Comment: PERF ORMED BY: [facility] [address] [place] [address] PATHOLOGIST [employer] LILLY LOTT M.D. Performed By: #### S OFSANDRA COVID-19 KATELYN #### [address] Basophils/100 WBC (Bld) 0.6 % Normal . [facility] Comment on above: Performed By: #### S OFSANDRA COVID-19 KATELYN #### [address] Eosinophils (Bld) [#/Vol] 0.1 10*3/uL Normal 0.0-0.45 [facility] Comment on above: Performed By: #### S OFIANMICHELLE COVID-19 KATELYN #### [address] Eosinophils/100 WBC (Bld) 0.8 % Normal . [facility] Comment on above: Performed By: #### S OFSANDRA COVID-19 KATELYN #### [address] Erythrocyte distribution width (RBC) [Ratio] 13.4 % Normal 11.9-15.3 [facility] Comment on above: Performed By: #### S OFSANDRA COVID-19 KATELYN #### [address] Hematocrit (Bld) [Volume fraction] 39.4 % Normal 34.0-46.4 [facility] Comment on above: Performed By: #### S OFSANDRA COVID-19 KATELYN #### [address] Hemoglobin (Bld) [Mass/Vol] 12.8 g/dL Normal 11.8-15.4 [facility] Comment on above: Performed By: #### S OFSANDRA COVID-19 KATELYN #### [address] Lymphocytes (Bld) [#/Vol] 1.8 10*3/uL Normal 1.00-4.8 [facility] Comment on above: Performed By: #### S OFIANEG COVID-19 KATELYN #### [facility] [address] [place] [address] [place] Lymphocytes/100 WBC (Bld) 23.6 % Normal . [facility] Comment on above: Performed By: #### S OFSANDRA COVID-19 KATELYN #### [facility] [address] MCH (RBC) [Entitic mass] 29.7 pg Normal 24.7-34.3 [facility] Comment on above: Performed By: #### S OFSANDRA COVID-19 KATELYN #### [address] MCV (RBC) [Entitic vol] 91.6 fL Normal 80-100 [facility] Comment on above: Performed By: #### S OFSANDRA COVID-19 KATELYN #### [address] Mean Corpuscular HGB Conc 32.4 g/dL Normal 32.0-35.0 [facility] Comment on above: Performed By: #### S OFSANDRA COVID-19 KATELYN #### [place] [address] [place] Monocytes (Bld) [#/Vol] 0.5 10*3/uL Normal 0.0-0.8 [facility] Comment on above: Performed By: #### S OFSANDRA COVID-19 KATELYN #### [place] [address] [place] Monocytes/100 WBC (Bld) 18.48 % Normal 0.00-20.00 [facility] Comment on above: Performed By: #### S OFSANDRA COVID-19 KATELYN #### [place] [address] [place] Monocytes/100 WBC (Bld) 6.0 % Normal . [facility] Comment on above: Performed By: #### S OFSANDRA COVID-19 KATELYN #### [place] [address] [place] Neutrophils (Bld) [#/Vol] 5.3 10*3/uL Normal 1.8-7.7 [facility] Comment on above: Performed By: #### S DEONNA YADAV-19 KATELYN #### [facility] [address] [place] [address] Neutrophils/100 WBC (Bld) 69.0 % Normal . [facility] Comment on above: Performed By: #### S DEONNA YADAV-19 KATELYN #### [facility] [address] [place] [address] NRBC% 0.1 /100{WBC} Normal 0-0.5 [facility] Comment on above: Performed By: #### S DEONNA YADAV-19 KATELYN #### [address] Platelet mean volume (Bld) [Entitic vol] 6.5 fL Normal 6.3-10.7 [facility] Comment on above: Performed By: #### S DEONNA YADAV-Sina KATELYN #### [address] Platelets (Bld) [#/Vol] 372 10*3/uL Normal 150-450 [facility] Comment on above: Performed By: #### S DIONNE YADAVID-19 KATELYN #### [address] RBC (Bld) [#/Vol] 4.31 10*6/uL Normal 3.60-5.00 [facility] Comment on above: Performed By: #### S DIONNE YADAVID-19 KATELYN #### [facility] [address] [place] [address] WBC (Bld) [#/Vol] 7.6 10*3/uL Normal 3.8-11.6 [facility] Comment on above: Performed By: #### S DIONNE YADAVID-19 KATELYN #### [facility] [address] [place] [address] Comprehensive Metabolic Pane alcides 06-02-2022 Albumin [Mass/Vol] 3.9 g/dL Normal 3.2-5.5 [facility] Comment on above: Performed By: #### S DEONNA YADAV- KATELYN #### [facility] [address] Albumin/Globulin [Mass ratio] 1.4 {ratio} Normal [facility] Comment on above: Performed By: #### S DEONNA YADAV- KATELYN #### [facility] [address] ALP [Catalytic activity/Vol] 59 U/L Normal 32-92 [facility] Comment on above: Performed By: #### S DEONNA YADAV- KATELYN #### [address] ALT [Catalytic activity/Vol] 37 U/L Normal 10-60 [facility] Comment on above: Performed By: #### S DEONNA YADAV- KATELYN #### [facility] [address] [place] [address] Anion gap [Moles/Vol] 16.8 mmol/L High 6.0-15.0 [facility] Comment on above: Performed By: #### S DEONNA YADAV- KATELYN #### [address] AST [Catalytic activity/Vol] 25 U/L Normal 10-42 [facility] Comment on above: Performed By: #### S DEONNA YADAV- KATELYN #### [facility] [address] [place] [address] [place] Bilirubin [Mass/Vol] 0.3 mg/dL Normal 0.3-1.2 [facility] Comment on above: Performed By: #### S DEONNA YADAV- KATELYN #### [facility] [address] [place] [address] Calcium [Mass/Vol] 9.6 mg/dL Normal 8.2-10.2 [facility] Comment on above: Performed By: #### S OFIANEG, COVID-19 KATELYN #### [facility] [address] Chloride [Moles/Vol] 94 mmol/L Low 95-114 [facility] Comment on above: Performed By: #### S OFSANDRA COVID-19 KATELYN #### [facility] [address] CO2 [Moles/Vol] 24.5 mmol/L Normal 22.0-30.0 [facility] Comment on above: Performed By: #### S OFSANDRA COVID-19 KATELYN #### [facility] [address] Creatinine [Mass/Vol] 0.70 mg/dL Normal 0.44-1.03 [facility] Comment on above: Performed By: #### S OFSANDRA COVID-19 KATELYN #### [facility] [address] Creatinine Clr Calc Pharmacy 53.85 [facility] Comment on above: Result Comment: PERF ORMED BY: [place] [address] PATHOLOGIST [employer] LILLY LOTT M.D. Performed By: #### S OFSANDRA COVID-19 KATELYN #### [facility] [address] Estimated GFR ( Meenu > 60 [facility] Comment on above: Result Comment: GFR estimated reference range: According to KDOQI guidelines, <60 ml/min/1.73m2 is sufficient to diagnose a patient with chronic kidney disease. Performed By: #### S OFSANDRA COVID-19 KATELYN #### [facility] [address] Estimated GFR (Non- Am > 60 [facility] Comment on above: Performed By: #### S OFSANDRA COVID-19 KATELYN #### [facility] [address] [place] [address] [place] Globulin (S) [Mass/Vol] 2.8 g/dL [facility] Comment on above: Performed By: #### S SAMREENSANDRA COVID-19 KATELYN #### [facility] [address] [place] [address] [place] Glucose [Mass/Vol] 138 mg/dL High 70-100 [facility] Comment on above: Result Comment: [place] Glucose Reference Range is dependent on time and content of last meal. Glucose of more than 200 mg/dL in a nonstressed, ambulatory subject supports the diagnosis of Diabetes Mellitus. ADA recommended reference range Performed By: #### S SAMREENSANDRA COVID-19 KATELYN #### [facility] [address] [place] [address] [place] Potassium [Moles/Vol] 4.3 mmol/L Normal 3.5-5.1 [facility] Comment on above: Performed By: #### S VICENTA COVID- KATELYN #### [facility] [address] [place] [address] [place] Protein [Mass/Vol] 6.7 g/dL Normal 6.1-7.9 [facility] Comment on above: Performed By: #### S SAMREENSANDRA COVID-19 KATELYN #### [facility] [address] [place] [address] [place] Sodium [Moles/Vol] 131 mmol/L Low 136-146 [facility] Comment on above: Performed By: #### S SAMREENSANDRA COVID-19 KATELYN #### [facility] [address] [place] [id number] [place] Urea nitrogen [Mass/Vol] 14 mg/dL Normal 9-23 [facility] Comment on above: Performed By: #### S SAMREENSANDRA COVID-19 KATELYN #### [facility] [address] [place] [address] [place] Creatinine and Glomerular fi ltration rate.predicted panel (S/P/Bld)Ordered By: Tatianna Hilario on 06-02-2022 Creatinine [Mass/Vol] 0.70 mg/dL 0.44-1.03 [facility] Drug Screen,Urineon 06-02-19 Amphetamine Screen,Urine Negative Normal Negative [facility] Comment on above: Performed By: #### C K, CRP, CMP, CBC, ESR, TSH3 #### [facility] [address] [place] [address] [place] #### ALDOLASE #### [facility] , Barbiturate Screen,Urine Negative Normal Negative [facility] Comment on above: Performed By: #### C K, CRP, CMP, CBC, ESR, TSH3 #### [address] #### ALDOLASE #### [facility] , Benzodiazepines Screen,Urine Positive High Negative [facility] Comment on above: Performed By: #### C K, CRP, CMP, CBC, ESR, TSH3 #### [address] #### ALDOLASE #### [facility] , Cannabinoid Screen,Urine Negative Normal Negative [facility] Comment on above: Result Comment: Thes e are unconfirmed results and should not be used for legal purposes. Drug Cut-Off Concentration: AMPH 1000 ng/mL CESAR 200 ng/mL DIONNE 200 ng/mL COCM 300 ng/mL OP 300 ng/mL PCP 25 ng/mL THC 20 ng/mL PERFORMED BY: [place] [address] PATHOLOGIST [employer] LILLY LOTT M.D. Performed By: #### C K, CRP, CMP, CBC, ESR, TSH3 #### [address] #### ALDOLASE #### [facility] , Cocaine Screen,Urine Negative Normal Negative [facility] Comment on above: Performed By: #### C K, CRP, CMP, CBC, ESR, TSH3 #### [address] #### ALDOLASE #### [facility] , Opiate Screen,Urine Negative Normal Negative [facility] Comment on above: Performed By: #### C K, CRP, CMP, CBC, ESR, TSH3 #### [facility] [address] [place] [address] [place] #### ALDOLASE #### [facility] , Phencyclidine Screen,Urine Negative Normal Negative [facility] Comment on above: Performed By: #### C K, CRP, CMP, CBC, ESR, TSH3 #### [facility] [address] [place] [address] [place] #### ALDOLASE #### [facility] , Eosinophils Auto (Bld) [#/Vo l]Ordered By: Tatianna Hilario on 06-02-2022 Eosinophils (Bld) [#/Vol] 0.1 10*3/uL 0.0-0.45 [facility] Eosinophils/100 WBC Auto (Bl d)Ordered By: Tatianna Hilario on 06-02-2022 Eosinophils/100 WBC (Bld) 0.8 % . [facility] Erythrocyte distribution wid th Auto (RBC) [Ratio]Ordered By: Tatianna Hilario on 06-02-2022 Erythrocyte distribution width (RBC) [Ratio] 13.4 % 11.9-15.3 [facility] Estimated glomerular filtrat ion rate (GFR) non- AmericanOrdered By: Tatianna Hilario on 06-02-2022 GFR/1.73 sq M.predicted among non-blacks MDRD (S/P/Bld) [Vol rate/Area] > 60 mL/Min [facility] Ethanol [Mass/volume] in Ser um or PlasmaOrdered By: Tatianna Hilario on 06-02-2022 Ethanol [Mass/Vol] mg/dL [facility] Ethanol [Mass/Vol] TNP [facility] Comment on above: Test not performed Ethyl Alcohol Profileon 05-07 Ethanol [Mass/Vol] mg/dL Normal [facility] Comment on above: Performed By: #### S OFIANEG, COVID-19 KATELYN #### [facility] [address] Percent Ethanol Not performed Normal [facility] Comment on above: Result Comment: PERF ORMED BY: [facility] [address] [place] [address] PATHOLOGIST [employer] LILLY LOTT M.D. Performed By: #### S LAURA YADAV #### [facility] [address] Globulin Calc (S) [Mass/Vol] Ordered By: Tatianna Hilario on 06-02-2022 Globulin (S) [Mass/Vol] 2.8 g/dL [facility] Glucose [Mass/volume] in Ser um or PlasmaOrdered By: Tatianna Hilario on 06-02-2022 Glucose [Mass/Vol] 138 mg/dL 70-100 [facility] Comment on above: ADA recommended refe rence rangeRandom Glucose Reference Range is dependent on time and content of last meal. Glucose of more than 200 mg/dL in a nonstressed, ambulatory subject supports the diagnosis of Diabetes Mellitus. Hematocrit Auto (Bld) [Volum e fraction]Ordered By: Tatianna Hilario on 06-02-2022 Hematocrit (Bld) [Volume fraction] 39.4 % 34.0-46.4 [facility] Hemoglobin [Mass/volume] in BloodOrdered By: Tatianna Hilario on 06-02-2022 Hemoglobin (Bld) [Mass/Vol] 12.8 g/dL 11.8-15.4 [facility] Ketones Auto test strip (U) [Mass/Vol]Ordered By: Tatianna Hilario on 06-02-2022 Ketones (U) [Mass/Vol] Negative Negative [facility] Laboratory - Drug toxicology Ordered By: Tatianna Hilario on 06-02-2022 Opiates Ql (U) Negative Negative [facility] Leukocytes [#/volume] correc marlen for nucleated erythrocytes in Blood by Automated counOrdered By: Tatianna Hilario on 06-02-2022 WBC corrected for nucl RBC Auto (Bld) [#/Vol] 7.6 10*3/uL 3.8-11.6 [facility] Lymphocytes Auto (Bld) [#/Vo l]Ordered By: Tatianna Hilario on 06-02-2022 Lymphocytes (Bld) [#/Vol] 1.8 10*3/uL 1.00-4.8 [facility] Lymphocytes/100 WBC Auto (Bl d)Ordered By: Tatianna Hilario on 06-02-2022 Lymphocytes/100 WBC (Bld) 23.6 % . [facility] MCH Auto (RBC) [Entitic mass ]Ordered By: Tatianna Hilario on 06-02-2022 MCH (RBC) [Entitic mass] 29.7 pg 24.7-34.3 [facility] MCHC Auto (RBC) [Mass/Vol]Or dered By: Tatianna Hilario on 06-02-2022 MCHC (RBC) [Mass/Vol] 32.4 g/dL 32.0-35.0 [facility] MCV Auto (RBC) [Entitic vol] Ordered By: Tatianna Hilario on 06-02-2022 MCV (RBC) [Entitic vol] 91.6 fL 80-100 [facility] Monocyte distribution width [Entitic volume] in Blood by AutomatedOrdered By: Tatianna Hilario on 06-02-2022 Monocyte distribution width Auto (Bld) [Entitic vol] 18.48 % 0.00-20.00 [facility] Monocytes Auto (Bld) [#/Vol] Ordered By: Tatianna Hilario on 06-02-2022 Monocytes (Bld) [#/Vol] 0.5 10*3/uL 0.0-0.8 [facility] Monocytes/100 WBC Auto (Bld) Ordered By: Tatianna Hilario on 06-02-2022 Monocytes/100 WBC (Bld) 6.0 % . [facility] Neutrophils Auto (Bld) [#/Vo l]Ordered By: Tatianna Hilario on 06-02-2022 Neutrophils (Bld) [#/Vol] 5.3 10*3/uL 1.8-7.7 [facility] Neutrophils/100 WBC Auto (Bl d)Ordered By: Tatianna Hilario on 06-02-2022 Neutrophils/100 WBC (Bld) 69.0 % . [facility] Nitrite Test strip Ql (U)Ord ered By: Tatianna Hilario on 06-02-2022 Nitrite Ql (U) Negative Negative [facility] No Panel InformationOrdered By: Anna Oro on 06-02-2022 SARS Antigen (LFIA) [facility] SARS Antigen (LFIA) [facility] No Panel InformationOrdered By: Tatianna Hilario on 06-02-2022 Estimated GFR () > 60 mL/Min [facility] Comment on above: GFR estimated refere nce range: According to KDOQI guidelines, <60 ml/min/1.73m2 is sufficient to diagnose a patient with chronic kidney disease. Pharmacy Creatinine Clearance (Chem 53.85 [facility] Nucleated erythrocytes [Pres ence] in Blood by Automated countOrdered By: Tatianna Hilario on 06-02-2022 Nucleated RBC Auto Ql (Bld) 0.1 /100{WBC} 0-0.5 [facility] Phencyclidine Screen Ql (U)O rdered By: Tatianna Hilario on 06-02-2022 Phencyclidine Ql (U) Negative Negative [facility] Platelet mean volume Auto (B ld) [Entitic vol]Ordered By: Tatianna Hilario on 06-02-2022 Platelet mean volume (Bld) [Entitic vol] 6.5 fL 6.3-10.7 [facility] Platelets Auto (Bld) [#/Vol] Ordered By: Tatianna Hilario on 06-02-2022 Platelets (Bld) [#/Vol] 372 10*3/uL 150-450 [facility] Potassium [Moles/volume] in Serum or PlasmaOrdered By: Tatianna Hilario on 06-02-2022 Potassium [Moles/Vol] 4.3 mmol/L 3.5-5.1 [facility] Protein Auto test strip (U) [Mass/Vol]Ordered By: Tatianna Hilario on 06-02-2022 Protein (U) [Mass/Vol] Negative Negative [facility] Protein [Mass/volume] in Ser um or PlasmaOrdered By: Tatianna Hilario on 06-02-2022 Protein [Mass/Vol] 6.7 g/dL 6.1-7.9 [facility] RBC Auto (Bld) [#/Vol]Ordere d By: Tatianna Hilario on 06-02-2022 RBC (Bld) [#/Vol] 4.31 10*6/uL 3.60-5.00 [facility] Serum or plasma alanine gomez otransferase measurement without P-5'-P (enzymatic activiOrdered By: Tatianna Hilario on 06-02-2022 ALT No additional P-5'-P [Catalytic activity/Vol] 37 U/L 10-60 [facility] Serum or plasma albumin/glob ulin mass ratioOrdered By: Tatianna Hilario on 06-02-2022 Albumin/Globulin [Mass ratio] 1.4 {ratio} [facility] Serum or plasma anion gap de terminationOrdered By: Tatianna Hilario on 06-02-2022 Anion gap [Moles/Vol] 16.8 mmol/L 6.0-15.0 [facility] Sodium [Moles/volume] in Ser um or PlasmaOrdered By: Tatianna Hilario on 06-02-2022 Sodium [Moles/Vol] 131 mmol/L 136-146 [facility] Specific gravity Auto test s trip (U) [Rel density]Ordered By: Tatianna Hilario on 06-02-2022 Specific gravity (U) [Rel density] 1.005 1.001-1.03 0 [facility] Urea nitrogen [Mass/volume] in Serum or PlasmaOrdered By: Tatianna Hilario on 06-02-2022 Urea nitrogen [Mass/Vol] 14 mg/dL 9-23 [facility] Urinalysison 06-02-2022 Appearance (U) Clear Normal Clear [facility] Comment on above: Order Comment: Name Collection Type:: Clean-Voided Midstream Performed By: #### C K, CRP, CMP, CBC, ESR, TSH3 #### [facility] [address] [place] [address] [place] #### ALDOLASE #### [facility] , Bilirubin,Urine Negative Normal Negative [facility] Comment on above: Order Comment: Name Collection Type:: Clean-Voided Midstream Performed By: #### C K, CRP, CMP, CBC, ESR, TSH3 #### [facility] [address] [place] [address] #### ALDOLASE #### [facility] , Color (U) Yellow Normal Yellow [facility] Comment on above: Order Comment: Name Collection Type:: Clean-Voided Midstream Performed By: #### C K, CRP, CMP, CBC, ESR, TSH3 #### [facility] [address] [place] [address] #### ALDOLASE #### [facility] , Glucose Ql (U) Normal Normal Normal [facility] Comment on above: Order Comment: Name Collection Type:: Clean-Voided Midstream Performed By: #### C K, CRP, CMP, CBC, ESR, TSH3 #### [facility] [address] [place] [address] #### ALDOLASE #### [facility] , Ketones Ql (U) Negative Normal Negative [facility] Comment on above: Order Comment: Name Collection Type:: Clean-Voided Midstream Performed By: #### C K, CRP, CMP, CBC, ESR, TSH3 #### [facility] [address] [place] [address] #### ALDOLASE #### [facility] , Leukocyte esterase Test strip Ql (U) Negative Normal Negative [facility] Comment on above: Order Comment: Name Collection Type:: Clean-Voided Midstream Performed By: #### C K, CRP, CMP, CBC, ESR, TSH3 #### [facility] [address] [place] [address] #### ALDOLASE #### [facility] , Nitrite,Urine Negative Normal Negative [facility] Comment on above: Order Comment: Name Collection Type:: Clean-Voided Midstream Performed By: #### C K, CRP, CMP, CBC, ESR, TSH3 #### [facility] [address] [place] [address] [place] #### ALDOLASE #### [facility] , Occult Blood,Urine Negative Normal Negative [facility] Comment on above: Order Comment: Name Collection Type:: Clean-Voided Midstream Result Comment: PERF ORMED BY: [place] [address] PATHOLOGIST [employer] LILLY LOTT M.D. Performed By: #### C K, CRP, CMP, CBC, ESR, TSH3 #### [address] #### ALDOLASE #### [facility] , pH (U) 6.5 [pH] Normal 5.0-9.0 [facility] Comment on above: Order Comment: Name Collection Type:: Clean-Voided Midstream Performed By: #### C K, CRP, CMP, CBC, ESR, TSH3 #### [address] #### ALDOLASE #### [facility] , Protein,Urine Negative Normal Negative [facility] Comment on above: Order Comment: Name Collection Type:: Clean-Voided Midstream Performed By: #### C K, CRP, CMP, CBC, ESR, TSH3 #### [facility] [address] [place] [address] #### ALDOLASE #### [facility] , Specificy [place],Urine 1.005 Normal 1.001-1.03 0 [facility] Comment on above: Order Comment: Name Collection Type:: Clean-Voided Midstream Performed By: #### C K, CRP, CMP, CBC, ESR, TSH3 #### [place] [address] [place] #### ALDOLASE #### [facility] , Urobilinogen,Urine Normal Normal Normal [facility] Comment on above: Order Comment: Name Collection Type:: Clean-Voided Midstream Performed By: #### C K, CRP, CMP, CBC, ESR, TSH3 #### [place] [address] [place] #### ALDOLASE #### [facility] , Urine clarity by refractomet ry automatedOrdered By: Tatianna Hilario on 06-02-2022 Clarity Refractometry automated (U) Clear Clear [facility] Urine cocaine detectionOrder ed By: Tatianna Hilario on 06-02-2022 Cocaine Ql (U) Negative Negative [facility] Urine glucose measurement by automated test strip (mass/volume)Ordered By: Tatianna Hilario on 06-02-2022 Glucose Auto test strip (U) [Mass/Vol] Normal mg/dL Normal [facility] Urine hemoglobin detection b y automated test stripOrdered By: Tatianna Hilario on 06-02-2022 Hemoglobin Auto test strip Ql (U) Negative Negative [facility] Urine leukocyte esterase det ection by automated test stripOrdered By: Tatianna Hilario on 06-02-2022 Leukocyte esterase Auto test strip Ql (U) Negative Negative [facility] Urobilinogen Auto test strip (U) [Mass/Vol]Ordered By: Tatianna Hilario on 06-02-2022 Urobilinogen (U) [Mass/Vol] Normal mg/dL Normal [facility] WBC Auto (Bld) [#/Vol]Ordere d By: Tatianna Hilario on 06-02-2022 WBC (Bld) [#/Vol] 7.6 10*3/uL 3.8-11.6 [facility] pH Auto test strip (U)Ordere d By: Tatianna Hilario on 06-02-2022 pH (U) 6.5 [pH] 5.0-9.0 [facility] CULTURE URINEon 05-20-2022 CULTURE URINE Culture Observations : LIGHT GROWTH OF MIXED GENITAL JAVON. NO POTENTIAL PATHOGENS SEEN. Normal [facility] Comment on above: Performed By: #### L IPID, BMP, NA #### [facility] [address] [place] [address] Dr. Dilip Cartagena CULTURE URINEon 05-08-2022 CULTURE [...] F Nitrofurantoin <=16 S F Normal [facility] Comment on above: Performed By: #### L IPID, BMP, NA #### [facility] [address] [place] [address] [address] Dilip Cartagena LUIS ENRIQUE Antinuclear Antibodieson 05-05-2022 Antinuclear Abs, IFA Positive Critically abnormal . [facility] Comment on above: Result Comment: Nega tive <1:80 Borderline 1:80 Positive >1:80 Performed By: #### S VICENTA, COVID-19 KATELYN #### [facility] [address] Note 1 Normal . [facility] Comment on above: Result Comment: For more [...] titers Nucleosomes, Histones Drug-induced SLE Speckled Sm, CLINICAL INSTRUCTOR, SCL-70, SLE,MCTD,PSS (diffuse form), SS-A/SS-B Sjogrens Nucleolar SCL-70, PM-1/SCL High titers Scleroderma, PM/DM Centromere Centromere PSS (limited form) w/Crest syndrome variable Nuclear Dot Sp100,[id number] Primary Biliary Cirrhosis Nuclear GP210, Primary Biliary Cirrhosis Membrane ban A,B,C Performed at: [address] [id number] Gameplay Programmer: Reggie Lazcano PhD, Phone: [phone] PERFORMED BY: [place] [address] PATHOLOGIST [employer] LILLY LOTT M.D. Performed By: #### S OFSANDRA COVID-19 KATELYN #### [address] Speckled Pattern 1:80 Normal . [facility] Comment on above: Result Comment: ICAP nomenclature: AC-2,4,5,29 Performed By: #### S OFSANDRA COVID-19 KATELYN #### [address] Aldolaseon 05-05-2022 Aldolase 7.8 U/L Normal 3.3-10.3 [facility] Comment on above: Result Comment: Perf ormed at: [place] [id number] Gameplay Programmer: Reggie Lazcano PhD, Phone: [phone] PERFORMED BY: [place] [address] PATHOLOGIST [employer] PAT[employer] LILLY LOTT M.D. Performed By: #### C K, CRP, CMP, CBC, ESR, TSH3 #### [address] #### ALDOLASE #### [facility] , Angiotensin Converting Enzym adelia 05-05-2022 Angiotensin converting enzyme [Catalytic activity/Vol] U/L Normal 14-82 [facility] Comment on above: Result Comment: Perf ormed at: [place] [id number] Gameplay Programmer: Reggie Lazcano PhD, Phone: [phone] Performed By: #### S OFSANDRA, COVID-19 KATELYN #### [address] Basophils Auto (Bld) [#/Vol] Ordered By: Johann Dolan on 05-05-2022 Basophils (Bld) [#/Vol] 0.1 10*3/uL 0.0-0.2 [facility] Basophils/100 WBC Auto (Bld) Ordered By: Johann Dolan on 05-05-2022 Basophils/100 WBC (Bld) 0.7 % . [facility] Body fluid albumin measureme nt (mass/volume)Ordered By: Johann Dolan on 05-05-2022 Albumin (Body fld) [Mass/Vol] 4.6 g/dL 3.2-5.5 [facility] C reactive protein [Mass/vol ume] in Serum or PlasmaOrdered By: Johann Dolan on 05-05-2022 CRP [Mass/Vol] mg/L 0-10 [facility] Comment on above: Performed at: [facility] [place] [id number] Director: Reggie Lazcano PhD, Phone: [phone] C-Reactive Proteinon 023 C-Reactive Protein 0.6 mg/dL Normal 0.0-1.0 [facility] Comment on above: Performed By: #### C K, CRP, CMP, CBC, ESR, TSH3 #### [facility] [address] [place] [address] [place] #### ALDOLASE #### [facility] , CT biopsyOrdered By: Johann Dolan on 05-05-2022 CT biopsy 7.8 U/L 3.3-10.3 [facility] Comment on above: Performed at: [facility] [address] [id number] Director: Reggie Lazcano PhD, Phone: [phone] Complete Blood Count Auto Di ffon 05-05-2022 Basophils (Bld) [#/Vol] 0.1 10*3/uL Normal 0.0-0.2 [facility] Comment on above: Performed By: #### C K, CRP, CMP, CBC, ESR, TSH3 #### [facility] [address] [place] [address] [place] #### ALDOLASE #### [facility] , Basophils/100 WBC (Bld) 0.7 % Normal . [facility] Comment on above: Performed By: #### C K, CRP, CMP, CBC, ESR, TSH3 #### [address] #### ALDOLASE #### [facility] , Eosinophils (Bld) [#/Vol] 0.1 10*3/uL Normal 0.0-0.45 [facility] Comment on above: Performed By: #### C K, CRP, CMP, CBC, ESR, TSH3 #### [place] [address] [place] #### ALDOLASE #### [facility] , Eosinophils/100 WBC (Bld) 0.7 % Normal . [facility] Comment on above: Performed By: #### C K, CRP, CMP, CBC, ESR, TSH3 #### [address] #### ALDOLASE #### [facility] , Erythrocyte distribution width (RBC) [Ratio] 13.9 % Normal 11.9-15.3 [facility] Comment on above: Performed By: #### C K, CRP, CMP, CBC, ESR, TSH3 #### [facility] [address] [place] [address] [place] #### ALDOLASE #### [facility] , Hematocrit (Bld) [Volume fraction] 40.3 % Normal 34.0-46.4 [facility] Comment on above: Performed By: #### C K, CRP, CMP, CBC, ESR, TSH3 #### [facility] [address] [place] [address] [place] #### ALDOLASE #### [facility] , Hemoglobin (Bld) [Mass/Vol] 13.1 g/dL Normal 11.8-15.4 [facility] Comment on above: Performed By: #### C K, CRP, CMP, CBC, ESR, TSH3 #### [place] [address] [place] #### ALDOLASE #### [facility] , Lymphocytes (Bld) [#/Vol] 1.7 10*3/uL Normal 1.00-4.8 [facility] Comment on above: Performed By: #### C K, CRP, CMP, CBC, ESR, TSH3 #### [address] #### ALDOLASE #### [facility] , Lymphocytes/100 WBC (Bld) 22.1 % Normal . [facility] Comment on above: Performed By: #### C K, CRP, CMP, CBC, ESR, TSH3 #### [address] #### ALDOLASE #### [facility] , MCH (RBC) [Entitic mass] 30.2 pg Normal 24.7-34.3 [facility] Comment on above: Performed By: #### C K, CRP, CMP, CBC, ESR, TSH3 #### [address] #### ALDOLASE #### [facility] , MCV (RBC) [Entitic vol] 92.6 fL Normal 80-100 [facility] Comment on above: Performed By: #### C K, CRP, CMP, CBC, ESR, TSH3 #### [place] [address] [place] #### ALDOLASE #### [facility] , Mean Corpuscular HGB Conc 32.6 g/dL Normal 32.0-35.0 [facility] Comment on above: Performed By: #### C K, CRP, CMP, CBC, ESR, TSH3 #### [place] [address] [place] #### ALDOLASE #### [facility] , Monocytes (Bld) [#/Vol] 0.3 10*3/uL Normal 0.0-0.8 [facility] Comment on above: Performed By: #### C K, CRP, CMP, CBC, ESR, TSH3 #### [facility] [address] [place] [address] [place] #### ALDOLASE #### [facility] , Monocytes/100 WBC (Bld) 4.5 % Normal . [facility] Comment on above: Performed By: #### C K, CRP, CMP, CBC, ESR, TSH3 #### [facility] [address] [place] [address] [place] #### ALDOLASE #### [facility] , Neutrophils (Bld) [#/Vol] 5.4 10*3/uL Normal 1.8-7.7 [facility] Comment on above: Performed By: #### C K, CRP, CMP, CBC, ESR, TSH3 #### [facility] [address] [place] [address] [place] #### ALDOLASE #### [facility] , Neutrophils/100 WBC (Bld) 72.0 % Normal . [facility] Comment on above: Performed By: #### C K, CRP, CMP, CBC, ESR, TSH3 #### [facility] [address] [place] [address] [place] #### ALDOLASE #### [facility] , NRBC% 0.1 /100{WBC} Normal 0-0.5 [facility] Comment on above: Performed By: #### C K, CRP, CMP, CBC, ESR, TSH3 #### [facility] [address] [place] [address] [place] #### ALDOLASE #### [facility] , Platelet mean volume (Bld) [Entitic vol] 6.7 fL Normal 6.3-10.7 [facility] Comment on above: Performed By: #### C K, CRP, CMP, CBC, ESR, TSH3 #### [facility] [address] [place] [address] #### ALDOLASE #### [facility] , Platelets (Bld) [#/Vol] 379 10*3/uL Normal 150-450 [facility] Comment on above: Performed By: #### C K, CRP, CMP, CBC, ESR, TSH3 #### [facility] [address] [place] [address] [place] #### ALDOLASE #### [facility] , RBC (Bld) [#/Vol] 4.35 10*6/uL Normal 3.60-5.00 [facility] Comment on above: Performed By: #### C K, CRP, CMP, CBC, ESR, TSH3 #### [place] [address] [place] #### ALDOLASE #### [facility] , WBC (Bld) [#/Vol] 7.5 10*3/uL Normal 3.8-11.6 [facility] Comment on above: Performed By: #### C K, CRP, CMP, CBC, ESR, TSH3 #### [facility] [address] [place] [address] [place] #### ALDOLASE #### [facility] , Comprehensive Metabolic Pane alcides 05-05-2022 Albumin [Mass/Vol] 4.6 g/dL Normal 3.2-5.5 [facility] Comment on above: Performed By: #### C K, CRP, CMP, CBC, ESR, TSH3 #### [facility] [address] [place] [address] [place] #### ALDOLASE #### [facility] , Albumin/Globulin [Mass ratio] 1.9 {ratio} Normal [facility] Comment on above: Performed By: #### C K, CRP, CMP, CBC, ESR, TSH3 #### [facility] [address] [place] [address] #### ALDOLASE #### [facility] , ALP [Catalytic activity/Vol] 61 U/L Normal 32-92 [facility] Comment on above: Performed By: #### C K, CRP, CMP, CBC, ESR, TSH3 #### [facility] [address] [place] [address] #### ALDOLASE #### [facility] , ALT [Catalytic activity/Vol] 61 U/L High 10-60 [facility] Comment on above: Performed By: #### C K, CRP, CMP, CBC, ESR, TSH3 #### [facility] [address] [place] [address] #### ALDOLASE #### [facility] , Anion gap [Moles/Vol] 17.3 mmol/L High 6.0-15.0 [facility] Comment on above: Performed By: #### C K, CRP, CMP, CBC, ESR, TSH3 #### [facility] [address] [place] [address] #### ALDOLASE #### [facility] , AST [Catalytic activity/Vol] 39 U/L Normal 10-42 [facility] Comment on above: Performed By: #### C K, CRP, CMP, CBC, ESR, TSH3 #### [facility] [address] [place] [address] [place] #### ALDOLASE #### [facility] , Bilirubin [Mass/Vol] 0.6 mg/dL Normal 0.3-1.2 [facility] Comment on above: Performed By: #### C K, CRP, CMP, CBC, ESR, TSH3 #### [facility] [address] [place] [address] [place] #### ALDOLASE #### [facility] , Calcium [Mass/Vol] 10.3 mg/dL High 8.2-10.2 [facility] Comment on above: Performed By: #### C K, CRP, CMP, CBC, ESR, TSH3 #### [facility] [address] [place] [address] [place] #### ALDOLASE #### [facility] , Chloride [Moles/Vol] 94 mmol/L Low 95-114 [facility] Comment on above: Performed By: #### C K, CRP, CMP, CBC, ESR, TSH3 #### [facility] [address] [place] [address] [place] #### ALDOLASE #### [facility] , CO2 [Moles/Vol] 25.4 mmol/L Normal 22.0-30.0 [facility] Comment on above: Performed By: #### C K, CRP, CMP, CBC, ESR, TSH3 #### [address] #### ALDOLASE #### [facility] , Creatinine [Mass/Vol] 0.66 mg/dL Normal 0.44-1.03 [facility] Comment on above: Performed By: #### C K, CRP, CMP, CBC, ESR, TSH3 #### [facility] [address] [place] [address] [place] #### ALDOLASE #### [facility] , Estimated GFR ( Meenu > 60 [facility] Comment on above: Result Comment: GFR estimated reference range: According to KDOQI guidelines, <60 ml/min/1.73m2 is sufficient to diagnose a patient with chronic kidney disease. Performed By: #### C K, CRP, CMP, CBC, ESR, TSH3 #### [place] [address] [place] #### ALDOLASE #### [facility] , Estimated GFR (Non- Am > 60 [facility] Comment on above: Performed By: #### C K, CRP, CMP, CBC, ESR, TSH3 #### [place] [address] [place] #### ALDOLASE #### [facility] , Globulin (S) [Mass/Vol] 2.4 g/dL Normal [facility] Comment on above: Performed By: #### C K, CRP, CMP, CBC, ESR, TSH3 #### [facility] [address] [place] [address] [place] #### ALDOLASE #### [facility] , Glucose [Mass/Vol] 119 mg/dL High 70-100 [facility] Comment on above: Result Comment: [facility] Glucose Reference Range is dependent on time and content of last meal. Glucose of more than 200 mg/dL in a nonstressed, ambulatory subject supports the diagnosis of Diabetes Mellitus. ADA recommended reference range Performed By: #### C K, CRP, CMP, CBC, ESR, TSH3 #### [address] #### ALDOLASE #### [facility] , Potassium [Moles/Vol] 4.7 mmol/L Normal 3.5-5.1 [facility] Comment on above: Performed By: #### C K, CRP, CMP, CBC, ESR, TSH3 #### [facility] [address] [place] [address] [place] #### ALDOLASE #### [facility] , Protein [Mass/Vol] 7.0 g/dL Normal 6.1-7.9 [facility] Comment on above: Performed By: #### C K, CRP, CMP, CBC, ESR, TSH3 #### [place] [address] [place] #### ALDOLASE #### [facility] , Sodium [Moles/Vol] 132 mmol/L Low 136-146 [facility] Comment on above: Performed By: #### C K, CRP, CMP, CBC, ESR, TSH3 #### [place] [address] [place] #### ALDOLASE #### [facility] , Urea nitrogen [Mass/Vol] 12 mg/dL Normal 9-23 [facility] Comment on above: Performed By: #### C K, CRP, CMP, CBC, ESR, TSH3 #### [facility] [address] [place] [address] #### ALDOLASE #### [facility] , Creatine Kinaseon 05-05-2022 CK [Catalytic activity/Vol] 1859 U/L High [facility] Comment on above: Result Comment: PERF ORMED BY: [place] [address] PATHOLOGIST [employer] PAT[employer] LILLY LOTT M.D. Performed By: #### C K, CRP, CMP, CBC, ESR, TSH3 #### [facility] [address] [place] [address] [place] #### ALDOLASE #### [facility] , Creatine kinase [Enzymatic a ctivity/volume] in Serum or PlasmaOrdered By: Johann Dolan on 05-05-2022 CK [Catalytic activity/Vol] 1859 U/L [facility] Creatinine and Glomerular fi ltration rate.predicted panel (S/P/Bld)Ordered By: Johann Dolan on 05-05-2022 Creatinine [Mass/Vol] 0.66 mg/dL 0.44-1.03 [facility] Eosinophils Auto (Bld) [#/Vo l]Ordered By: Johann Dolan on 05-05-2022 Eosinophils (Bld) [#/Vol] 0.1 10*3/uL 0.0-0.45 [facility] Eosinophils/100 WBC Auto (Bl d)Ordered By: Johann Dolan on 05-05-2022 Eosinophils/100 WBC (Bld) 0.7 % . [facility] Erythrocyte Sedimentation Ra yvonne 05-05-2022 ESR (Bld) [Velocity] 15 mm/h Normal 0-29 [facility] Comment on above: Result Comment: PERF ORMED BY: [place] [address] PATHOLOGIST [employer] PAT[employer]ENTS LILLY LOTT M.D. Performed By: #### C K, CRP, CMP, CBC, ESR, TSH3 #### [address] #### ALDOLASE #### [facility] , Erythrocyte distribution wid th Auto (RBC) [Ratio]Ordered By: Johann Dolan on 05-05-2022 Erythrocyte distribution width (RBC) [Ratio] 13.9 % 11.9-15.3 [facility] Erythrocyte sedimentation ra te by Photometric methodOrdered By: Johann Dolan on 05-05-2022 ESR Photometric method (Bld) [Velocity] 15 mm/hr 0-29 [facility] Estimated glomerular filtrat ion rate (GFR) non- AmericanOrdered By: Johann Dolan on 05-05-2022 GFR/1.73 sq M.predicted among non-blacks MDRD (S/P/Bld) [Vol rate/Area] > 60 mL/Min [facility] Globulin Calc (S) [Mass/Vol] Ordered By: Johann Dolan on 05-05-2022 Globulin (S) [Mass/Vol] 2.4 g/dL [facility] Hematocrit Auto (Bld) [Volum e fraction]Ordered By: Johann Dolan on 05-05-2022 Hematocrit (Bld) [Volume fraction] 40.3 % 34.0-46.4 [facility] Hemoglobin [Mass/volume] in BloodOrdered By: Johann Dolan on 05-05-2022 Hemoglobin (Bld) [Mass/Vol] 13.1 g/dL 11.8-15.4 [facility] LC CRPon 05-05-2022 LC CRP, Quant <1 Normal 0-10 [facility] Comment on above: Result Comment: Perf ormed at: CB - [facility] [address] [id number] Gameplay Programmer: Reggie Lazcano PhD, Phone: [phone] PERFORMED BY: [place] [address] PATHOLOGIST [employer] PAT[employer] LILLY LOTT M.D. Performed By: #### S DIONNE YADAVID-19 KATELYN #### [facility] [address] Leukocytes [#/volume] correc marlen for nucleated erythrocytes in Blood by Automated counOrdered By: Johann Dolan on 05-05-2022 WBC corrected for nucl RBC Auto (Bld) [#/Vol] 7.5 10*3/uL 3.8-11.6 [facility] Lymphocytes Auto (Bld) [#/Vo l]Ordered By: Johann Dolan on 05-05-2022 Lymphocytes (Bld) [#/Vol] 1.7 10*3/uL 1.00-4.8 [facility] Lymphocytes/100 WBC Auto (Bl d)Ordered By: Johann Dolan on 05-05-2022 Lymphocytes/100 WBC (Bld) 22.1 % . [facility] MCH Auto (RBC) [Entitic mass ]Ordered By: Johann Dolan on 05-05-2022 MCH (RBC) [Entitic mass] 30.2 pg 24.7-34.3 [facility] MCHC Auto (RBC) [Mass/Vol]Or dered By: Johann Dolan on 05-05-2022 MCHC (RBC) [Mass/Vol] 32.6 g/dL 32.0-35.0 [facility] MCV Auto (RBC) [Entitic vol] Ordered By: Johann Dolan on 05-05-2022 MCV (RBC) [Entitic vol] 92.6 fL 80-100 [facility] Monocytes Auto (Bld) [#/Vol] Ordered By: Johann Dolan on 05-05-2022 Monocytes (Bld) [#/Vol] 0.3 10*3/uL 0.0-0.8 [facility] Monocytes/100 WBC Auto (Bld) Ordered By: Johann Dolan on 05-05-2022 Monocytes/100 WBC (Bld) 4.5 % . [facility] Myositis Panelon 05-05-2022 Myositis Panel Normal [facility] Comment on above: Result Comment: See report. Scanned copy available in EMR. PERFORMED BY: [facility] [address] [facility] [place] [id number] PATHOLOGIST [employer] PAT[employer] LILLY LOTT M.D. Performed By: #### S DEONNA YADAV-19 KATELYN #### [facility] [address] Neutrophils Auto (Bld) [#/Vo l]Ordered By: Johann Dolan on 05-05-2022 Neutrophils (Bld) [#/Vol] 5.4 10*3/uL 1.8-7.7 [facility] Neutrophils/100 WBC Auto (Bl d)Ordered By: Johann Dolan on 05-05-2022 Neutrophils/100 WBC (Bld) 72.0 % . [facility] No Panel InformationOrdered By: Johann Dolan on 05-05-2022 Anti-Nuclear Antibody Comment 2 See comment . [facility] Comment on above: For more information about [...] titers Nucleosomes, Histones Drug-induced SLE Speckled Sm, CLINICAL INSTRUCTOR, SCL-70, SLE,MCTD,PSS (diffuse form), SS-A/SS-B Sjogrens Nucleolar SCL-70, PM-1/SCL High titers Scleroderma, PM/DM Centromere Centromere PSS (limited form) w/Crest syndrome variable Nuclear Dot [id number] Primary Biliary Cirrhosis Nuclear GP210, Primary Biliary CirrhosisMembrane ban A,B,C Performed at: [facility] [employer] [id number] Director: Reggie Lazcano PhD, Phone: [phone] Myositis Autoantibodies See comment [facility] Comment on above: See report. Scanned copy available in EMR. Estimated GFR () > 60 mL/Min [facility] Comment on above: GFR estimated refere nce range: According to KDOQI guidelines, <60 ml/min/1.73m2 is sufficient to diagnose a patient with chronic kidney disease. Pharmacy Creatinine Clearance (Chem N/A [facility] Nucleated erythrocytes [Pres ence] in Blood by Automated countOrdered By: Johann Dolan on 05-05-2022 Nucleated RBC Auto Ql (Bld) 0.1 /100{WBC} 0-0.5 [facility] Platelet mean volume Auto (B ld) [Entitic vol]Ordered By: Johann Dolan on 05-05-2022 Platelet mean volume (Bld) [Entitic vol] 6.7 fL 6.3-10.7 [facility] Platelets Auto (Bld) [#/Vol] Ordered By: Johann Dolan on 05-05-2022 Platelets (Bld) [#/Vol] 379 10*3/uL 150-450 [facility] Protein [Mass/volume] in Ser um or PlasmaOrdered By: Johann Dolan on 05-05-2022 Protein [Mass/Vol] 7.0 g/dL 6.1-7.9 [facility] RBC Auto (Bld) [#/Vol]Ordere d By: Johann Dolan on 05-05-2022 RBC (Bld) [#/Vol] 4.35 10*6/uL 3.60-5.00 [facility] Serum angiotensin converting enzyme (JOS) measurementOrdered By: Johann Dolan on 05-05-2022 Angiotensin converting enzyme [Catalytic activity/Vol] U/L 14-82 [facility] Comment on above: Performed at: [place] [id number] Director: Reggie Lazcano PhD, Phone: [phone] Serum nuclear antibody titer Ordered By: Johann Dolan on 05-05-2022 Nuclear Ab (S) [Titer] Positive . [facility] Comment on above: Negative <1:80 Borde rline 1:80 Positive >1:80 Serum or plasma alanine gomez otransferase measurement without P-5'-P (enzymatic activiOrdered By: Johann Dolan on 05-05-2022 ALT No additional P-5'-P [Catalytic activity/Vol] 61 U/L 10-60 [facility] Serum or plasma albumin/glob ulin mass ratioOrdered By: Johann Dolan on 05-05-2022 Albumin/Globulin [Mass ratio] 1.9 {ratio} [facility] Serum or plasma alkaline rashawn sphatase measurement (enzymatic activity/volume)Ordered By: Johann Dolan on 05-05-2022 ALP [Catalytic activity/Vol] 61 U/L 32-92 [facility] Serum or plasma anion gap de terminationOrdered By: Johann Dolan on 05-05-2022 Anion gap [Moles/Vol] 17.3 mmol/L 6.0-15.0 [facility] Serum or plasma aspartate am inotransferase measurement (enzymatic activity/volume)Ordered By: Johann Dolan on 05-05-2022 AST [Catalytic activity/Vol] 39 U/L 10-42 [facility] Serum or plasma calcium jose urement (mass/volume)Ordered By: Johann Dolan on 05-05-2022 Calcium [Mass/Vol] 10.3 mg/dL 8.2-10.2 [facility] Serum or plasma chloride shay surement (moles/volume)Ordered By: Johann Dolan on 05-05-2022 Chloride [Moles/Vol] 94 mmol/L 95-114 [facility] Serum or plasma glucose jose urement (mass/volume)Ordered By: Johann Dolan on 05-05-2022 Glucose [Mass/Vol] 119 mg/dL 70-100 [facility] Comment on above: ADA recommended refe rence rangeRandom Glucose Reference Range is dependent on time and content of last meal. Glucose of more than 200 mg/dL in a nonstressed, ambulatory subject supports the diagnosis of Diabetes Mellitus. Serum or plasma potassium me asurement (moles/volume)Ordered By: Johann Dolan on 05-05-2022 Potassium [Moles/Vol] 4.7 mmol/L 3.5-5.1 [facility] Serum or plasma sodium measu rement (moles/volume)Ordered By: Johann Dolan on 05-05-2022 Sodium [Moles/Vol] 132 mmol/L 136-146 [facility] Serum or plasma total biliru bin measurement (mass/volume)Ordered By: Johann Dolan on 05-05-2022 Bilirubin [Mass/Vol] 0.6 mg/dL 0.3-1.2 [facility] Serum or plasma total carbon dioxide measurement (moles/volume)Ordered By: Johann Dolan on 05-05-2022 CO2 [Moles/Vol] 25.4 mmol/L 22.0-30.0 [facility] Serum or plasma urea nitroge n measurement (mass/volume)Ordered By: Johann Dolan on 05-05-2022 Urea nitrogen [Mass/Vol] 12 mg/dL 9- [facility] Serum speckled pattern antin uclear antibody (LUIS ENRIQUE) titerOrdered By: Johann Dolan on 05-05-2022 Speckled nuclear Ab pattern (S) [Titer] 1:80 . [facility] Comment on above: ICAP nomenclature: A C-2,4,5,29 TSH DL <= 0.005 mIU/L QnOrde red By: Johann Dolan on 05-05-2022 TSH Qn 1.42 m[IU]/L 0.45-5.33 [facility] Thyroid Stimulating Hormoneo n 05-05-2022 TSH Qn 1.42 m[IU]/L Normal 0.45-5.33 [facility] Comment on above: Result Comment: PERF ORMED BY: [facility] [address] [place] [address] PATHOLOGIST [employer] PAT[employer]ENTS LILLY LOTT M.D. Performed By: #### C K, CRP, CMP, CBC, ESR, TSH3 #### [facility] [address] #### ALDOLASE #### [facility] , WBC Auto (Bld) [#/Vol]Ordere d By: Johann Dolan on 05-05-2022 WBC (Bld) [#/Vol] 7.5 10*3/uL 3.8-11.6 [facility] UA RANDOM W/MICROSCOPICon BACTERIA TRACE Abnormal NONE SEEN [facility] Comment on above: Performed By: #### L IPID, BMP, NA #### [facility] [address] [place] [address] [address] Dilip Cartagena Bilirubin Ql (U) Negative Normal NEGATIVE [facility] Comment on above: Performed By: #### L IPID, BMP, NA #### [facility] [address] [place] [address] [address] Dilip Cartagena CAST NONE SEEN Normal NONE SEEN [facility] Comment on above: Performed By: #### L IPID, BMP, NA #### [facility] [address] [place] [address] Dr. Dilip Cartagena Clarity (U) CLEAR Normal CLEAR [facility] Comment on above: Performed By: #### L IPID, BMP, NA #### [facility] [address] [place] [address] [address] Dilip Cartagena Color (U) DK. ORANGE Abnormal YELLOW [facility] Comment on above: Performed By: #### L IPID, BMP, NA #### [facility] [address] [place] [address] Dr. Dilip Cartagena Crystals LM Nom (Urine sed) NONE SEEN Normal NONE SEEN [facility] Comment on above: Performed By: #### L IPID, BMP, NA #### [facility] [address] [place] [address] Dr. Dilip Cartagena Epithelial cells LM Ql (Urine sed) RARE Normal NONE SEEN /RARE [facility] Comment on above: Performed By: #### L IPID, BMP, NA #### [facility] [address] [place] [address] Dr. Dilip Cartagena Glucose Ql (U) Negative Normal NEGATIVE [facility] Comment on above: Performed By: #### L IPID, BMP, NA #### [facility] [address] [place] [address] Dr. Dilip Cartagena Hemoglobin Ql (U) Negative Normal NEGATIVE [facility] Comment on above: Performed By: #### L IPID, BMP, NA #### [facility] [address] [place] [address] Dr. Dilip Cartagena Ketones Ql (U) Negative Normal NEGATIVE [facility] Comment on above: Performed By: #### L IPID, BMP, NA #### [facility] [address] [place] [address] Dr. Dilip Cartagena LEUKOCYTES TRACE Abnormal NEGATIVE [facility] Comment on above: Performed By: #### L IPID, BMP, NA #### [facility] [address] [place] [address] Dr. Dilip Cartagena MUCOUS NONE SEEN Normal NONE SEEN [facility] Comment on above: Performed By: #### L IPID, BMP, NA #### [facility] [address] [place] [address] Dr. Dilip Cartagena Nitrite Ql (U) Positive Abnormal NEGATIVE [facility] Comment on above: Performed By: #### L IPID, BMP, NA #### [facility] [address] [place] [address] Dr. Dilip Cartagena pH (U) 7.5 [pH] Normal 5-9 [facility] Comment on above: Performed By: #### L IPID, BMP, NA #### [facility] [address] [place] [address] Dr. Dilip Cartagena RBC 0-2 Normal 0-2 [facility] Comment on above: Performed By: #### L IPID, BMP, NA #### [facility] [address] [place] [address] Dr. Dilip Cartagena SPEC GRAVITY <=1.005 Abnormal 1.005-<=1. 025 [facility] Comment on above: Performed By: #### L IPID, BMP, NA #### [facility] [address] [place] [address] Dr. Dilip Cartagena UA PROTEIN Negative Normal NEGATIVE/ TRACE [facility] Comment on above: Performed By: #### L IPID, BMP, NA #### [facility] [address] [place] [address] Dr. Dilip Cartagena Urobilinogen Qn (U) 1.0 {Hallie'U}/dL Normal 0.2 - 1. 0 [facility] Comment on above: Performed By: #### L IPID, BMP, NA #### [facility] [address] [place] [address] Dr. Dilip Cartagena WBC 0-2 Abnormal NONE SEEN [facility] Comment on above: Performed By: #### L IPID, BMP, NA #### [facility] [address] [place] [address] [address] Dilip Cartagena CKMBon 02-25-2022 CK.MB [Mass/Vol] 194.45 ng/mL Critically high <=3.60 [facility] Comment on above: Performed By: #### L IPID, BMP, NA #### [facility] [address] [place] [address] Dr. Dilip Cartagena CPKon 02-25-2022 CK [Catalytic activity/Vol] 2549 U/L Critically high 26-192 [facility] Comment on above: Performed By: #### L IPID, BMP, NA #### [facility] [address] [place] [address] Dr. Dilip Cartagena GLYCOHEMOGLOBIN A1Con 2021 ADA RECOMMENDATION SEE BELOW Normal [facility] Comment on above: Result Comment: ADA RECOMMENDED LIMIT 4.0 - 6.0 ADA THERAPEUTIC TARGET < 7.0 ACTION SUGGESTED > 7.0 Performed By: #### U RCX #### [facility] [address] [place] [address] Dr. Dilip Cartagena Glucose [Mass/Vol] 143 mg/dL Normal [facility] Comment on above: Performed By: #### U RCX #### [facility] Laboratory [address] [place] [address] Dr. Dilip Cartagena HbA1c (Bld) [Mass fraction] 6.6 % Critically high 4.5-6.2 [facility] Comment on above: Performed By: #### U RCX #### [facility] [address] [place] [address] Dr. Dilip Cartagena MYOGLOBINon 02-25-2022 REESE 1013 ng/mL Critically high 9-82 [facility] Comment on above: Performed By: #### L IPID, BMP, NA #### [facility] [address] [place] [address] Dr. Dilip Cartagena PROF CHEM 8 (BAS METB)on Anion gap [Moles/Vol] 10.3 mmol/L Normal [facility] Comment on above: Performed By: #### L IPID, BMP, NA #### [facility] [address] [address] [address] Dilip Cartagena Calcium [Mass/Vol] 9.5 mg/dL Normal 8.5-10.1 [facility] Comment on above: Performed By: #### L IPID, BMP, NA #### [facility] [address] [address] [address] Dilip Cartagena Chloride [Moles/Vol] 101 mmol/L Normal 98-107 [facility] Comment on above: Performed By: #### L IPID, BMP, NA #### [facility] [address] [address] [address] Dilip Cartagena CO2 [Moles/Vol] 29.1 mmol/L Normal 21.0-32.0 [facility] Comment on above: Performed By: #### L IPID, BMP, NA #### [facility] [address] [place] [address] Dr. Dilip Cartagena Creatinine [Mass/Vol] 0.66 mg/dL Normal 0.55-1.02 [facility] Comment on above: Performed By: #### L IPID, BMP, NA #### [facility] [address] [place] [address] Dr. Dilip Cartagena EGFR-AF BAHRAINI >60 Normal >=60 [facility] Comment on above: Performed By: #### L IPID, BMP, NA #### [facility] [address] [place] [address] Dr. Dilip Cartagena EGFR-NON AF BAHRAINI >60 Normal >=60 [facility] Comment on above: Performed By: #### L IPID, BMP, NA #### [facility] [address] [place] [address] Dr. Dilip Cartagena Glucose [Mass/Vol] 147 mg/dL Critically high 74-106 [facility] Comment on above: Performed By: #### L IPID, BMP, NA #### [facility] [address] [place] [address] Dr. Dilip Cartagena Potassium [Moles/Vol] 4.4 mmol/L Normal 3.5-5.1 [facility] Comment on above: Performed By: #### L IPID, BMP, NA #### [facility] [address] [address] [address] Dilip Cartagena Sodium [Moles/Vol] 136 mmol/L Normal 136-145 [facility] Comment on above: Performed By: #### L IPID, BMP, NA #### [facility] [address] [address] [address] Dilip Cartagena Urea nitrogen [Mass/Vol] 17.0 mg/dL Normal 7.0-18.0 [facility] Comment on above: Performed By: #### L IPID, BMP, NA #### [facility] [address] [address] [address] Dilip Cartagena Urea nitrogen/Creatinine [Mass ratio] 25.8 mg/mg Normal [facility] Comment on above: Performed By: #### L IPID, BMP, NA #### [facility] [address] [place] [address] Dr. Dilip Cartagena US BEV DOP LEG [...] ERIC BERRY Date: 2022-02-25 15:50 Normal [facility] CULTURE URINEon 02-11-2022 CULTURE URINE Culture Observations : LIGHT GROWTH OF MIXED GENITAL JAVON. NO POTENTIAL PATHOGENS SEEN. Normal [facility] Comment on above: Performed By: #### U RCX #### [facility] [address] [place] [address] Dr. Dilip Cartagena UA RANDOM W/MICROSCOPICon BACTERIA TRACE Abnormal NONE SEEN [facility] Comment on above: Performed By: #### L IPID, BMP, NA #### [facility] [address] [place] [address] Dr. Dilip Cartagena Bilirubin Ql (U) Negative Normal NEGATIVE [facility] Comment on above: Performed By: #### L IPID, BMP, NA #### [facility] [address] [place] [address] Dr. Dilip Cartagena CAST NONE SEEN Normal NONE SEEN [facility] Comment on above: Performed By: #### L IPID, BMP, NA #### [facility] [address] [place] [address] Dr. Dilip Cartagena Clarity (U) CLEAR Normal CLEAR [facility] Comment on above: Performed By: #### L IPID, BMP, NA #### [facility] [address] [place] [address] Dr. Dilip Cartagena Color (U) DK. ORANGE Abnormal YELLOW [facility] Comment on above: Performed By: #### L IPID, BMP, NA #### [facility] [address] [place] [address] Dr. Dilip Cartagena Crystals LM Nom (Urine sed) NONE SEEN Normal NONE SEEN [facility] Comment on above: Performed By: #### L IPID, BMP, NA #### [facility] [address] [place] [address] Dr. Dilip Cartagena Epithelial cells LM Ql (Urine sed) FEW Abnormal NONE SEEN /RARE [facility] Comment on above: Performed By: #### L IPID, BMP, NA #### [facility] [address] [place] [address] Dr. Dilip Cartagena Glucose Ql (U) Negative Normal NEGATIVE [facility] Comment on above: Performed By: #### L IPID, BMP, NA #### [facility] [address] [place] [address] Dr. Dilip Cartagena Hemoglobin Ql (U) Negative Normal NEGATIVE [facility] Comment on above: Performed By: #### L IPID, BMP, NA #### [facility] [address] [place] [address] Dr. Dilip Cartagena Ketones Ql (U) Negative Normal NEGATIVE [facility] Comment on above: Performed By: #### L IPID, BMP, NA #### [facility] [address] [place] [address] Dr. Dilip Cartagena LEUKOCYTES Negative Normal NEGATIVE [facility] Comment on above: Performed By: #### L IPID, BMP, NA #### [facility] [address] [place] [address] Dr. Dilip Cartagena MUCOUS NONE SEEN Normal NONE SEEN [facility] Comment on above: Performed By: #### L IPID, BMP, NA #### [facility] [address] [place] [address] Dr. Dilip Cartagena Nitrite Ql (U) Positive Abnormal NEGATIVE [facility] Comment on above: Performed By: #### L IPID, BMP, NA #### [facility] [address] [place] [address] Dr. Dilip Cartagena pH (U) 7.0 [pH] Normal 5-9 [facility] Comment on above: Performed By: #### L IPID, BMP, NA #### [facility] [address] [place] [address] Dr. Dilip Cartagena RBC 0-2 Normal 0-2 [facility] Comment on above: Performed By: #### L IPID, BMP, NA #### [facility] [address] [place] [address] Dr. Dilip Cartagena SPEC GRAVITY 1.010 Normal 1.005-<=1. 025 [facility] Comment on above: Performed By: #### L IPID, BMP, NA #### [facility] [address] [place] [address] Dr. Dilip Cartagena UA PROTEIN Negative Normal NEGATIVE/ TRACE [facility] Comment on above: Performed By: #### L IPID, BMP, NA #### [facility] [address] [place] [address] Dr. Dilip Cartagena Urobilinogen Qn (U) 1.0 {Hallie'U}/dL Normal 0.2 - 1. 0 [facility] Comment on above: Performed By: #### L IPID, BMP, NA #### [facility] [address] [place] [address] Dr. Dilip Cartagena WBC 0-2 Abnormal NONE SEEN [facility] Comment on above: Performed By: #### L IPID, BMP, NA #### [facility] [address] [place] [address] Dr. Dilip Cartagena LUIS ENRIQUE by IFAon 02-03-2022 Antinuclear Antibodies, IFA Positive Abnormal [facility] Comment on above: Result Comment: Nega tive <1:80 Borderline 1:80 Positive >1:80 Performed By: #### U RCX #### [facility] [address] [place] [address] Dr. Dilip Cartagena Centriole Pattern Normal [facility] Comment on above: Performed By: #### U RCX #### [facility] [address] [place] [address] Dr. Dilip Cartagena Centromere Pattern Normal [facility] Comment on above: Performed By: #### U RCX #### [facility] [address] [place] [address] Dr. Dilip Cartagena Homogeneous Pattern 1:80 Normal [facility] Comment on above: Result Comment: ICAP nomenclature: AC-1 Performed By: #### U RCX #### [facility] [address] [place] [address] Dr. Dilip Cartagena Midbody Pattern Normal [facility] Comment on above: Performed By: #### U RCX #### [facility] [address] [place] [address] Dr. Dilip Cartagena Note: Comment Normal [facility] Comment on above: Result Comment: For [...] titers Nucleosomes, Histones Drug-induced SLE Speckled Sm, CLINICAL INSTRUCTOR, SCL-70, SLE,MCTD,PSS (diffuse form), SS-A/SS-B Sjogrens Nucleolar SCL-70, PM-1/SCL High titers Scleroderma, PM/DM Centromere Centromere PSS (limited form) w/Crest syndrome variable Nuclear Dot [id number] Primary Biliary Cirrhosis Nuclear GP210, Primary Biliary Cirrhosis Membrane ban A,B,C Performed By: #### U RCX #### [facility] [address] [address] [address] Dilip Cartagena Nuclear Dot Pattern Normal [facility] Comment on above: Performed By: #### U RCX #### [facility] [address] [address] [address] Dilip Cartagena Nuclear Membrane Pattern Normal [facility] Comment on above: Performed By: #### U RCX #### [facility] [address] [address] [address] Dilip Cartagena Nucleolar Pattern Normal [facility] Comment on above: Performed By: #### U RCX #### [facility] [address] [address] [address] Dilip Cartagena PCNA Pattern Normal [facility] Comment on above: Performed By: #### U RCX #### [facility] [address] [place] [address] Dr. Dilip Cartagena Speckled Pattern Normal [facility] Comment on above: Performed By: #### U RCX #### [facility] [address] [place] [address] Dr. Dilip Cartagena Spindle Apparatus Pattern Normal [facility] Comment on above: Performed By: #### U RCX #### [facility] [address] [place] [address] Dr. Dilip Cartagena ANTISTREPTOLYSIN O AB (ASO)o n 01-31-2022 Antistreptolysin O Ab 25.1 IU/mL Normal 0.0-200.0 [facility] Comment on above: Performed By: #### L IPID, BMP, NA #### [facility] [address] [place] [address] Dr. Dilip Cartagena RHEUMATOID FACTORon 02-01-20 RA Latex Turbid. 10.1 IU/mL Normal <14.0 [facility] Comment on above: Performed By: #### U RCX #### [facility] [address] [place] [address] Dr. Dilip Cartagena CKMBon 01-30-2022 CK.MB [Mass/Vol] 227.84 ng/mL Critically high <=3.60 T [facility] Comment on above: Performed By: #### L IPID, BMP, NA #### [facility] [address] [address] [address] Dilip Cartagena CPKon 01-30-2022 CK [Catalytic activity/Vol] 3698 U/L Critically high 26-192 [facility] Comment on above: Performed By: #### L IPID, BMP, NA #### [facility] [address] [place] [address] Dr. Dilip Cartagena CRPon 01-30-2022 CRP [Mass/Vol] mg/L Normal <=1.0 [facility] Comment on above: Performed By: #### L IPID, BMP, NA #### [facility] [address] [place] [address] Dr. Dilip Cartagena MYOGLOBINon 01-30-2022 REESE 2773 ng/mL Critically high 9-82 [facility] Comment on above: Performed By: #### L IPID, BMP, NA #### [facility] [address] [place] [address] Dr. Dilip Cartagena SED RATE WESTERGRENon 2021 SED RATE 20 mm/hr Normal <=30 [facility] Comment on above: Performed By: #### U RCX #### [facility] [address] [place] [address] Dr. Dilip Cartagena URIC ACID SERUMon 01-30-2022 Urate [Mass/Vol] 5.3 mg/dL Normal 2.6-6.0 [facility] Comment on above: Performed By: #### L IPID, BMP, NA #### [facility] [address] [place] [address] Dr. Dilip Cartagena ALDOLASEon 01-28-2022 Aldolase 27.1 U/L Critically high 3.3-10.3 [facility] Comment on above: Performed By: #### U RCX #### [facility] [address] [place] [address] Dr. Dilip Cartagena CKMBon 01-26-2022 CK.MB [Mass/Vol] 244.24 ng/mL Critically high <=3.60 [facility] Comment on above: Performed By: #### U RCX #### [facility] [address] [place] [address] Dr. Dilip Cartagena CPKon 01-26-2022 CK [Catalytic activity/Vol] 4430 U/L Critically high 26-192 [facility] Comment on above: Performed By: #### L IPID, BMP, NA #### [facility] [address] [place] [address] Dr. Dilip Cartagena CREATININEon 01-26-2022 Creatinine [Mass/Vol] 0.76 mg/dL Normal 0.55-1.02 [facility] Comment on above: Performed By: #### L IPID, BMP, NA #### [facility] [address] [place] [address] Dr. Dilip Cartagena EGFR-AF BAHRAINI >60 Normal >=60 [facility] Comment on above: Performed By: #### L IPID, BMP, NA #### [facility] [address] [place] [address] Dr. Dilip Cartagena EGFR-NON AF BAHRAINI >60 Normal >=60 [facility] Comment on above: Performed By: #### L IPID, BMP, NA #### [facility] [address] [place] [address] Dr. Dilip Cartagena MYOGLOBINon 01-26-2022 REESE 2514 ng/mL Critically high 9-82 [facility] Comment on above: Performed By: #### L IPID, BMP, NA #### [facility] [address] [place] [address] Dr. Dilip Cartagena PROF CHEM 8 (BAS METB)on Anion gap [Moles/Vol] 9.4 mmol/L Normal [facility] Comment on above: Performed By: #### L IPID, BMP, NA #### [facility] [address] [place] [address] Dr. Dilip Cartagena Calcium [Mass/Vol] 8.8 mg/dL Normal 8.5-10.1 [facility] Comment on above: Performed By: #### L IPID, BMP, NA #### [facility] [address] [address] [address] Dilip Cartagena Chloride [Moles/Vol] 104 mmol/L Normal 98-107 [facility] Comment on above: Performed By: #### L IPID, BMP, NA #### [facility] [address] [place] [address] Dr. Dilip Cartagena CO2 [Moles/Vol] 27.4 mmol/L Normal 21.0-32.0 [facility] Comment on above: Performed By: #### L IPID, BMP, NA #### [facility] [address] [place] [address] Dr. Dilip Cartagena Glucose [Mass/Vol] 141 mg/dL Critically high 74-106 [facility] Comment on above: Performed By: #### L IPID, BMP, NA #### [facility] [address] [place] [address] Dr. Dilip Cartagena Potassium [Moles/Vol] 4.8 mmol/L Normal 3.5-5.1 [facility] Comment on above: Performed By: #### L IPID, BMP, NA #### [facility] [address] [place] [address] Dr. Dilip Cartagena Sodium [Moles/Vol] 136 mmol/L Normal 136-145 [facility] Comment on above: Performed By: #### L IPID, BMP, NA #### [facility] [address] [place] [address] Dr. Dilip Cartagena Urea nitrogen [Mass/Vol] 15.0 mg/dL Normal 7.0-18.0 [facility] Comment on above: Performed By: #### L IPID, BMP, NA #### [facility] [address] [place] [address] Dr. Dilip Cartagena Urea nitrogen/Creatinine [Mass ratio] 19.7 mg/mg Normal [facility] Comment on above: Performed By: #### L IPID, BMP, NA #### [facility] [address] [place] [address] Dr. Dilip Cartagena US BEV DOP LEG [...] ERIC BERRY Date: 2022-01-26 18:51 Normal [facility] CULTURE BLOODon 01-21-2022 Microscopic examination of [...] F Oxacillin 1 R F Normal [facility] Comment on above: Performed By: #### L IPID, BMP, NA #### [facility] [address] [place] [address] Dr. Dilip Cartagena BNPon 01-17-2022 Natriuretic peptide B (Bld) [Mass/Vol] 792.0 pg/mL Normal <=1,800.0 [facility] Comment on above: Performed By: #### P OCGLUC #### [facility] [address] [place] [address] Dr. Dilip Cartagena CARDIAC JON ADMITon 022 CK [Catalytic activity/Vol] 2872 U/L Critically high 26-192 [facility] Comment on above: Performed By: #### U RCX #### [facility] [address] [place] [address] Dr. Dilip Cartagena CK.MB [Mass/Vol] 143.67 ng/mL Critically high <=3.60 T [facility] Comment on above: Performed By: #### U RCX #### [facility] [address] [place] [address] Dr. Dilip Cartagena HSTROP 25.6 pg/mL Normal 4.0-51.3 [facility] Comment on above: Result Comment: CUT- OFF POINTS HAVE BEEN ESTABLISHED BASED ON THE FOURTH UNIVERSAL DEFINITIONS OF MYOCARDIAL INFARCTION. THE UPPER REFERENCE LIMIT (URL) OF TROPONIN, DEFINED THE 99TH PERCENTILE OF cTnI DISTRIBUTION IN A REFERENCE POPULATION, HAS BEEN CONFIRMED THE DECISION THRESHOLD FOR UT DIAGNOSIS. Performed By: #### U RCX #### [facility] [address] [place] [address] Dr. Dilip Cartagena REESE 1364 ng/mL Critically high 9-82 [facility] Comment on above: Performed By: #### U RCX #### [facility] [address] [place] [address] Dr. Dilip Cartagena CBC AUTO DIFFon 01-17-2022 BASO # 0.0 103/ul Normal 0.0-0.1 [facility] Comment on above: Performed By: #### U RCX #### [facility] [address] [place] [address] Dr. Dilip Cartagena Basophils/100 WBC (Bld) 0.4 % Normal 0.2-2.0 [facility] Comment on above: Performed By: #### U RCX #### [facility] [address] [place] [address] Dr. Dilip Cartagena EO # 0.1 103/ul Normal 0.0-0.7 [facility] Comment on above: Performed By: #### U RCX #### [facility] [address] [place] [address] Dr. Dilip Cartagena Eosinophils/100 WBC (Bld) 1.8 % Normal 0.9-7.0 [facility] Comment on above: Performed By: #### U RCX #### [facility] [address] [place] [address] Dr. Dilip Cartagena Erythrocyte distribution width (RBC) [Ratio] 14.0 % Normal 11.0-15.0 [facility] Comment on above: Performed By: #### U RCX #### [facility] [address] [place] [address] Dr. Dilip Cartagena Hematocrit (Bld) [Volume fraction] 36.0 % Normal 36.0-48.0 [facility] Comment on above: Performed By: #### U RCX #### [facility] [address] [place] [address] Dr. Dilip Cartagena Hemoglobin (Bld) [Mass/Vol] 11.4 g/dL Critically low 12.0-16.0 [facility] Comment on above: Performed By: #### U RCX #### [facility] [address] [place] [address] Dr. Dilip Cartagena IG # 0.06 10e3/ul Critically high 0.00-0.03 [facility] Comment on above: Performed By: #### U RCX #### [facility] [address] [place] [address] Dr. Dilip Cartagena IG % 0.9 % Critically high 0.0-0.5 [facility] Comment on above: Performed By: #### U RCX #### [facility] [address] [place] [address] Dr. Dilip Cartagena LYMPH # 2.1 103/ul Normal 1.2-3.8 [facility] Comment on above: Performed By: #### U RCX #### [facility] [address] [place] [address] Dr. Dilip Cartagena Lymphocytes/100 WBC (Bld) 30.6 % Normal 20.5-60.0 [facility] Comment on above: Performed By: #### U RCX #### [facility] [address] [place] [address] Dr. Dilip Cartagena MANUAL DIFF REQ NO Normal [facility] Comment on above: Performed By: #### U RCX #### [facility] [address] [place] [address] Dr. Dilip Cartagena MCH (RBC) [Entitic mass] 30.4 pg Normal 26.7-34.0 [facility] Comment on above: Performed By: #### U RCX #### [facility] [address] [place] [address] Dr. Dilip Cartagena MCHC (RBC) [Mass/Vol] 31.7 g/dL Normal 29.9-35.2 [facility] Comment on above: Performed By: #### U RCX #### [facility] [address] [place] [address] Dr. Dilip Cartagena MCV (RBC) [Entitic vol] 96.0 fL Normal 81.0-99.0 [facility] Comment on above: Performed By: #### U RCX #### [facility] [address] [place] [address] Dr. Dilip Cartagena MONO # 0.5 103/ul Normal 0.3-0.8 [facility] Comment on above: Performed By: #### U RCX #### [facility] [address] [place] [address] Dr. Dilip Cartagena Monocytes/100 WBC (Bld) 7.3 % Normal 1.7-12.0 [facility] Comment on above: Performed By: #### U RCX #### [facility] [address] [place] [address] Dr. Dilip Cartagena NEUT # 4.0 103/ul Normal 1.4-6.5 [facility] Comment on above: Performed By: #### U RCX #### [facility] [address] [place] [address] Dr. Dilip Cartagena Neutrophils/100 WBC (Bld) 59.0 % Normal 43.0-75.0 [facility] Comment on above: Performed By: #### U RCX #### [facility] [address] [place] [address] Dr. Dilip Cartagena Platelet mean volume (Bld) [Entitic vol] 9.2 fL Critically low 9.5-13.5 [facility] Comment on above: Performed By: #### U RCX #### [facility] [address] [place] [address] Dr. Dilip Cartagena PLT 285 103/ul Normal 150-450 [facility] Comment on above: Performed By: #### U RCX #### [facility] [address] [place] [address] Dr. Dilip Cartagena RBC 3.75 106/ul Critically low 4.20-5.40 [facility] Comment on above: Performed By: #### U RCX #### [facility] [address] [place] [address] Dr. Dilip Cartagena WBC 6.7 103/ul Normal 4.0-11.0 [facility] Comment on above: Performed By: #### U RCX #### [facility] [address] [place] [address] Dr. Dilip Cartagena POINT OF CARE GLUCOSEon 01-03 Glucose [Mass/Vol] 137 mg/dL Critically high 74-106 [facility] Comment on above: Performed By: #### L IPID, BMP, NA #### [facility] [address] [place] [address] Dr. Dilip Cartagena Glucose [Mass/Vol] 125 mg/dL Critically high 74-106 [facility] Comment on above: Performed By: #### U RCX #### [facility] [address] [place] [address] Dr. Dilip Cartagena PROF 14(COMP METB)on 01-17- 022 Albumin [Mass/Vol] 2.9 g/dL Critically low 3.4-5.0 [facility] Comment on above: Performed By: #### U RCX #### [facility] [address] [place] [address] Dr. Dilip Cartagena Albumin/Globulin [Mass ratio] 0.9 {ratio} Normal [facility] Comment on above: Performed By: #### U RCX #### [facility] [address] [place] [address] Dr. Dilip Cartagena ALP [Catalytic activity/Vol] 47 U/L Normal 46-116 [facility] Comment on above: Performed By: #### U RCX #### [facility] [address] [address] [address] Dilip Cartagena ALT [Catalytic activity/Vol] 138 U/L Critically high 14-59 [facility] Comment on above: Performed By: #### U RCX #### [facility] [address] [address] [address] Dilip Cartagena Anion gap [Moles/Vol] 11.4 mmol/L Normal [facility] Comment on above: Performed By: #### U RCX #### [facility] [address] [address] [address] Dilip Cartagena AST [Catalytic activity/Vol] 70 U/L Critically high 15-37 [facility] Comment on above: Performed By: #### U RCX #### [facility] [address] [address] [address] Dilip Cartagena Bilirubin [Mass/Vol] 0.4 mg/dL Normal 0.2-1.0 [facility] Comment on above: Performed By: #### U RCX #### [facility] [address] [address] [address] Dilip Cartagena Calcium [Mass/Vol] 8.4 mg/dL Critically low 8.5-10.1 [facility] Comment on above: Performed By: #### U RCX #### [facility] [address] [address] [address] Dilip Cartagena Chloride [Moles/Vol] 103 mmol/L Normal 98-107 [facility] Comment on above: Performed By: #### U RCX #### [facility] [address] [address] [address] Dilip Cartagena CO2 [Moles/Vol] 23.7 mmol/L Normal 21.0-32.0 [facility] Comment on above: Performed By: #### U RCX #### [facility] [address] [address] [address] Dilip Cartagena Creatinine [Mass/Vol] 0.66 mg/dL Normal 0.55-1.02 [facility] Comment on above: Performed By: #### U RCX #### [facility] [address] [address] [address] Dilip Cartagena EGFR-AF BAHRAINI >60 Normal >=60 [facility] Comment on above: Performed By: #### U RCX #### [facility] [address] [address] [address] Dilip Cartagena EGFR-NON AF BAHRAINI >60 Normal >=60 [facility] Comment on above: Performed By: #### U RCX #### [facility] [address] [address] [address] Dilip Cartagena Globulin (S) [Mass/Vol] 3.2 g/dL Normal [facility] Comment on above: Performed By: #### U RCX #### [facility] [address] [place] [address] Dr. Dilip Cartagena Glucose [Mass/Vol] 111 mg/dL Critically high 74-106 T [facility] Comment on above: Performed By: #### U RCX #### [facility] [address] [address] [address] Dilip Cartagena Potassium [Moles/Vol] 5.1 mmol/L Normal 3.5-5.1 [facility] Comment on above: Performed By: #### U RCX #### [facility] [address] [place] [address] Dr. Dilip Cartagena Protein [Mass/Vol] 6.1 g/dL Critically low 6.4-8.2 [facility] Comment on above: Performed By: #### U RCX #### [facility] [address] [place] [address] Dr. Dilip Cartagena Sodium [Moles/Vol] 133 mmol/L Critically low 136-145 [facility] Comment on above: Performed By: #### U RCX #### [facility] [address] [address] [address] Dilip Cartagena Urea nitrogen [Mass/Vol] 15.0 mg/dL Normal 7.0-18.0 [facility] Comment on above: Performed By: #### U RCX #### [facility] [address] [place] [address] Dr. Dilip Cartagena Urea nitrogen/Creatinine [Mass ratio] 22.7 mg/mg Normal [facility] Comment on above: Performed By: #### U RCX #### [facility] [address] [place] [address] Dr. iDlip Cartagena T3, TOTAL (TRIIODOTHYRONINE) on 01-17-2022 T3, TOTAL 105 ng/dL Normal 71-180 [facility] Comment on above: Performed By: #### L IPID, BMP, NA #### [facility] [address] [place] [address] Dr. Dilip Cartagena AMYLASEon 01-16-2022 Amylase [Catalytic activity/Vol] 42 U/L Normal 25-115 [facility] Comment on above: Performed By: #### L IPID, BMP, NA #### [facility] [address] [place] [address] Dr. Dilip Cartagena Amylase [Catalytic activity/Vol] 55 U/L Normal 25-115 [facility] Comment on above: Performed By: #### U RCX #### [facility] [address] [place] [address] Dr. Dilip Cartagena Amylase [Catalytic activity/Vol] 52 U/L Normal 25-115 [facility] Comment on above: Performed By: #### P OCGLUC #### [facility] [address] [place] [address] Dr. Dilip Cartagena BLOOD CULTURE ID PANELon A. baumannii Not detected Normal NOT DETECTED [facility] Comment on above: Performed By: #### L IPID, BMP, NA #### [facility] [address] [place] [address] Dr. Dilip Cartagena Bacteriodes fragilis Not detected Normal NOT DETECTED [facility] Comment on above: Performed By: #### L IPID, BMP, NA #### [facility] [address] [place] [address] Dr. Dilip Cartagena BCID CONTROLS PASSED Normal [facility] Comment on above: Performed By: #### L IPID, BMP, NA #### [facility] [address] [address] [address] Dilip Cartagena BCIDBTHD BLOOD CULTURE BOTTLE INFORMATION Normal [facility] Comment on above: Performed By: #### L IPID, BMP, NA #### [facility] [address] [address] [address] Dilip Cartagena BCIDHD1 ANTIMICROBIAL RESIST ANCE GENES [facility] Comment on above: Performed By: #### L IPID, BMP, NA #### [facility] [address] [place] [address] Dr. Dilip Cartagena BCIDHD2 SEE BELOW [facility] Comment on above: Result Comment: Note : Antimicrobial resitance can occur via multiple mechanisms. A Not Detected result for the [employer] antomicrobial resistance gene assays does not indicate antimicrobial susceptibility. Subculturing is required for species identification and susceptibility testing of isolates. Performed By: #### L IPID, BMP, NA #### [facility] [address] [place] [address] Dr. Dilip Cartagena BCIDHD3 Positive [facility] Comment on above: Performed By: #### L IPID, BMP, NA #### [facility] [address] [place] [address] Dr. Dilip Cartagena BCIDHD4 Negative [facility] Comment on above: Performed By: #### L IPID, BMP, NA #### [facility] [address] [place] [address] Dr. Dilip Cartagena BCIDHD5 YEAST Normal [facility] Comment on above: Performed By: #### L IPID, BMP, NA #### [facility] [address] [place] [address] Dr. Dilip Cartagena Bottle Set: Set 1 [facility] Comment on above: Performed By: #### L IPID, BMP, NA #### [facility] [address] [place] [address] Dr. Dilip Cartagena Bottle: Aerobic Normal [facility] Comment on above: Performed By: #### L IPID, BMP, NA #### [facility] [address] [place] [address] Dr. Dilip Cartagena C. neoformans/gattii Not detected Normal NOT DETECTED [facility] Comment on above: Performed By: #### L IPID, BMP, NA #### [facility] [address] [place] [address] Dr. Dilip Cartagena Neyda albicans Not detected Normal NOT DETECTED [facility] Comment on above: Performed By: #### L IPID, BMP, NA #### [facility] [address] [place] [address] Dr. Dilip Cartagena Neyda auris Not detected Normal NOT DETECTED [facility] Comment on above: Performed By: #### L IPID, BMP, NA #### [facility] [address] [place] [address] Dr. Dilip Cartagena Neyda glabrata Not detected Normal NOT DETECTED [facility] Comment on above: Performed By: #### L IPID, BMP, NA #### [facility] [address] [place] [address] Dr. Dilip Cartagena Neyda Krusei Not detected Normal NOT DETECTED [facility] Comment on above: Performed By: #### L IPID, BMP, NA #### [facility] [address] [place] [address] Dr. Dilip Cartagena Neyda Parapsilosis Not detected Normal NOT DETECTED [facility] Comment on above: Performed By: #### L IPID, BMP, NA #### [facility] [address] [place] [address] Dr. Dilip Cartagena Neyda Tropicalis Not detected Normal NOT DETECTED [facility] Comment on above: Performed By: #### L IPID, BMP, NA #### [facility] [address] [place] [address] Dr. Dilip Cartagena CTX-M Resistant Gene Not Applicable Normal NOT DETECTED [facility] Comment on above: Performed By: #### L IPID, BMP, NA #### [facility] [address] [place] [address] Dr. Dilip Cartagena E. Cloacae complex Not detected Normal NOT DETECTED [facility] Comment on above: Performed By: #### L IPID, BMP, NA #### [facility] [address] [place] [address] Dr. Dilip Cartagena E. faecalis Not detected Normal NOT DETECTED [facility] Comment on above: Performed By: #### L IPID, BMP, NA #### [facility] [address] [place] [address] Dr. Dilip Cartagena E. faecium Not detected Normal NOT DETECTED [facility] Comment on above: Performed By: #### L IPID, BMP, NA #### [facility] [address] [place] [address] Dr. Dilip Cartagena Enterobacteriaceae Not detected Normal NOT DETECTED [facility] Comment on above: Performed By: #### L IPID, BMP, NA #### [facility] [address] [place] [address] Dr. Dilip Cartagena Escherichia coli Not detected Normal NOT DETECTED [facility] Comment on above: Performed By: #### L IPID, BMP, NA #### [facility] [address] [place] [address] Dr. Dilip Cartagena H. influenzae Not detected Normal NOT DETECTED [facility] Comment on above: Performed By: #### L IPID, BMP, NA #### [facility] [address] [place] [address] Dr. Dilip Cartagena IMP Resistant Gene Not Applicable Normal NOT DETECTED [facility] Comment on above: Performed By: #### L IPID, BMP, NA #### [facility] [address] [place] [address] Dr. Dilip Cartagena K. oxytoca Not detected Normal NOT DETECTED [facility] Comment on above: Performed By: #### L IPID, BMP, NA #### [facility] [address] [place] [address] Dr. Dilip Cartagena K. pneumoniae Not detected Normal NOT DETECTED [facility] Comment on above: Performed By: #### L IPID, BMP, NA #### [facility] [address] [place] [address] Dr. Dilip Cartagena Klebsiella aerogenes Not detected Normal NOT DETECTED [facility] Comment on above: Performed By: #### L IPID, BMP, NA #### [facility] [address] [place] [address] Dr. Dilip Cartagena KPC Resistant Gene Not Applicable Normal NOT DETECTED [facility] Comment on above: Performed By: #### L IPID, BMP, NA #### [facility] [address] [place] [address] Dr. Dilip Cartagena List. monocytogenes Not detected Normal NOT DETECTED [facility] Comment on above: Performed By: #### L IPID, BMP, NA #### [facility] [address] [place] [address] Dr. Dilip Cartagena Mcr-1 Resistant Gene Not Applicable Normal NOT DETECTED [facility] Comment on above: Performed By: #### L IPID, BMP, NA #### [facility] [address] [place] [address] Dr. Dilip Cartagena mecA/C Not Applicable Normal NOT DETECTED [facility] Comment on above: Performed By: #### L IPID, BMP, NA #### [facility] [address] [place] [address] Dr. Dilip Cartagena mecA/C MREJ Not Applicable Normal NOT DETECTED [facility] Comment on above: Performed By: #### L IPID, BMP, NA #### [facility] [address] [place] [address] Dr. Dilip Cartagena N. meningitidis Not detected Normal NOT DETECTED [facility] Comment on above: Performed By: #### L IPID, BMP, NA #### [facility] [address] [place] [address] Dr. Dilip Cartagena NDM Resistant Gene Not Applicable Normal NOT DETECTED [facility] Comment on above: Performed By: #### L IPID, BMP, NA #### [facility] [address] [place] [address] Dr. Dilip Cartagena Oxa-48-like Not Applicable Normal NOT DETECTED [facility] Comment on above: Performed By: #### L IPID, BMP, NA #### [facility] [address] [place] [address] Dr. Dilip Cartagena Proteus Not detected Normal NOT DETECTED [facility] Comment on above: Performed By: #### L IPID, BMP, NA #### [facility] [address] [place] [address] Dr. Dilip Cartagena Pseud. aeruginosa Not detected Normal NOT DETECTED [facility] Comment on above: Performed By: #### L IPID, BMP, NA #### [facility] [address] [place] [address] Dr. Dilip Cartagena S. maltophilia Not detected Normal NOT DETECTED [facility] Comment on above: Performed By: #### L IPID, BMP, NA #### [facility] [address] [place] [address] Dr. Dilip Cartagena Salmonella Not detected Normal NOT DETECTED [facility] Comment on above: Performed By: #### L IPID, BMP, NA #### [facility] [address] [place] [address] Dr. Dilip Cartagena Seratia marcescens Not detected Normal NOT DETECTED [facility] Comment on above: Performed By: #### L IPID, BMP, NA #### [facility] [address] [place] [address] Dr. Dilip Cartagena Site: left arm Normal [facility] Comment on above: Performed By: #### L IPID, BMP, NA #### [facility] [address] [place] [address] Dr. Dilip Cartagena Staph. aureus Not detected Normal NOT DETECTED [facility] Comment on above: Performed By: #### L IPID, BMP, NA #### [facility] [address] [place] [address] Dr. Dilip Cartagena Staph. epidermidis Not detected Normal NOT DETECTED [facility] Comment on above: Performed By: #### L IPID, BMP, NA #### [facility] [address] [place] [address] Dr. Dilip Cartagena Staph. lugdunensis Not detected Normal NOT DETECTED [facility] Comment on above: Performed By: #### L IPID, BMP, NA #### [facility] [address] [place] [address] Dr. Dilip Cartagena Staphylococcus Detected Abnormal NOT DETECTED [facility] Comment on above: Performed By: #### L IPID, BMP, NA #### [facility] [address] [place] [address] Dr. Dilip Cartagena Strep. agalactiae Not detected Normal NOT DETECTED [facility] Comment on above: Performed By: #### L IPID, BMP, NA #### [facility] [address] [place] [address] Dr. Dilip Cartagena Strep. pneumoniae Not detected Normal NOT DETECTED [facility] Comment on above: Performed By: #### L IPID, BMP, NA #### [facility] [address] [place] [address] Dr. Dilip Cartagena Strep. pyogenes Not detected Normal NOT DETECTED [facility] Comment on above: Performed By: #### L IPID, BMP, NA #### [facility] [address] [place] [address] Dr. Dilip Cartagena Streptococcus Not detected Normal NOT DETECTED [facility] Comment on above: Performed By: #### L IPID, BMP, NA #### [facility] [address] [place] [address] Dr. Dilip Cartagena Kenyetta/Bere Resist. Gene Not Applicable Normal NOT DETECTED [facility] Comment on above: Performed By: #### L IPID, BMP, NA #### [facility] [address] [place] [address] Dr. Dilip Cartagena VIM Resistant Gene Not Applicable Normal NOT DETECTED [facility] Comment on above: Performed By: #### L IPID, BMP, NA #### [facility] [address] [place] [address] Dr. Dilip Cartagena BNPon 01-16-2022 Natriuretic peptide B (Bld) [Mass/Vol] 584.0 pg/mL Normal <=1,800.0 [facility] Comment on above: Performed By: #### P OCGLUC #### [facility] [address] [place] [address] Dr. Dilip Cartagena CARDIAC JON 3-6on 2 CK [Catalytic activity/Vol] 5303 U/L Critically high 26-192 [facility] Comment on above: Performed By: #### C MREP #### [facility] [address] [address] [address] Dilip Cartagena CK.MB [Mass/Vol] 280.92 ng/mL Critically high <=3.60 [facility] Comment on above: Performed By: #### C MREP #### [facility] [address] [address] [address] Dilip Cartagena HSTROP 20.1 pg/mL Normal 4.0-51.3 [facility] Comment on above: Result Comment: CUT- OFF POINTS HAVE BEEN ESTABLISHED BASED ON THE FOURTH UNIVERSAL DEFINITIONS OF MYOCARDIAL INFARCTION. THE UPPER REFERENCE LIMIT (URL) OF TROPONIN, DEFINED THE 99TH PERCENTILE OF cTnI DISTRIBUTION IN A REFERENCE POPULATION, HAS BEEN CONFIRMED THE DECISION THRESHOLD FOR UT DIAGNOSIS. Performed By: #### C MREP #### [facility] [address] [address] [address] Dilip Cartagena CK [Catalytic activity/Vol] 6224 U/L Critically high 26-192 [facility] Comment on above: Performed By: #### U RCX #### [facility] [address] [address] [address] Dilip Cartagena CK.MB [Mass/Vol] 341.85 ng/mL Critically high <=3.60 [facility] Comment on above: Performed By: #### U RCX #### [facility] [address] [place] [address] Dr. Dilip Cartagena HSTROP 27.2 pg/mL Normal 4.0-51.3 [facility] Comment on above: Result Comment: CUT- OFF POINTS HAVE BEEN ESTABLISHED BASED ON THE FOURTH UNIVERSAL DEFINITIONS OF MYOCARDIAL INFARCTION. THE UPPER REFERENCE LIMIT (URL) OF TROPONIN, DEFINED THE 99TH PERCENTILE OF cTnI DISTRIBUTION IN A REFERENCE POPULATION, HAS BEEN CONFIRMED THE DECISION THRESHOLD FOR UT DIAGNOSIS. Performed By: #### U RCX #### [facility] [address] [address] [address] Dilip Cartagena CARDIAC JON ADMITon 14-2 022 CK [Catalytic activity/Vol] 6161 U/L Critically high 26-192 [facility] Comment on above: Performed By: #### U RCX #### [facility] [address] [place] [address] Dr. Dilip Cartagena CK.MB [Mass/Vol] 314.21 ng/mL Critically high <=3.60 T [facility] Comment on above: Performed By: #### U RCX #### [facility] [address] [place] [address] Dr. Dilip Cartagena HSTROP 27.5 pg/mL Normal 4.0-51.3 [facility] Comment on above: Result Comment: CUT- OFF POINTS HAVE BEEN ESTABLISHED BASED ON THE FOURTH UNIVERSAL DEFINITIONS OF MYOCARDIAL INFARCTION. THE UPPER REFERENCE LIMIT (URL) OF TROPONIN, DEFINED THE 99TH PERCENTILE OF cTnI DISTRIBUTION IN A REFERENCE POPULATION, HAS BEEN CONFIRMED THE DECISION THRESHOLD FOR UT DIAGNOSIS. Performed By: #### U RCX #### [facility] [address] [place] [address] Dr. Dilip Cartagena REESE 3384 ng/mL Critically high 9-82 [facility] Comment on above: Performed By: #### U RCX #### [facility] [address] [place] [address] Dr. Dilip Cartagena CBC AUTO DIFFon 01-16-2022 BASO # 0.0 103/ul Normal 0.0-0.1 [facility] Comment on above: Performed By: #### P OCGLUC #### [facility] [address] [place] [address] Dr. Dilip Cartagena Basophils/100 WBC (Bld) 0.3 % Normal 0.2-2.0 [facility] Comment on above: Performed By: #### P OCGLUC #### [facility] [address] [place] [address] Dr. Dilip Cartagena EO # 0.1 103/ul Normal 0.0-0.7 [facility] Comment on above: Performed By: #### P OCGLUC #### [facility] [address] [place] [address] Dr. Dilip Cartagena Eosinophils/100 WBC (Bld) 1.2 % Normal 0.9-7.0 [facility] Comment on above: Performed By: #### P OCGLUC #### [facility] [address] [place] [address] Dr. Dilip Cartagena Erythrocyte distribution width (RBC) [Ratio] 13.9 % Normal 11.0-15.0 [facility] Comment on above: Performed By: #### P OCGLUC #### [facility] [address] [place] [address] Dr. Dilip Cartagena Hematocrit (Bld) [Volume fraction] 40.2 % Normal 36.0-48.0 [facility] Comment on above: Performed By: #### P OCGLUC #### [facility] [address] [place] [address] Dr. Dilip Cartagena Hemoglobin (Bld) [Mass/Vol] 12.8 g/dL Normal 12.0-16.0 [facility] Comment on above: Performed By: #### P OCGLUC #### [facility] [address] [place] [address] Dr. Dilip Cartagena IG # 0.07 10e3/ul Critically high 0.00-0.03 [facility] Comment on above: Performed By: #### P OCGLUC #### [facility] [address] [place] [address] Dr. Dilip Cartagena IG % 0.7 % Critically high 0.0-0.5 [facility] Comment on above: Performed By: #### P OCGLUC #### [facility] [address] [place] [address] Dr. Dilip Cartagena LYMPH # 2.5 103/ul Normal 1.2-3.8 [facility] Comment on above: Performed By: #### P OCGLUC #### [facility] [address] [place] [address] Dr. Dilip Cartagena Lymphocytes/100 WBC (Bld) 26.2 % Normal 20.5-60.0 [facility] Comment on above: Performed By: #### P OCGLUC #### [facility] [address] [place] [address] Dr. Dilip Cartagena MANUAL DIFF REQ NO Normal [facility] Comment on above: Performed By: #### P OCGLUC #### [facility] [address] [place], [place] [id number] Dr. Dilip Cartagena MCH (RBC) [Entitic mass] 30.2 pg Normal 26.7-34.0 [facility] Comment on above: Performed By: #### P OCGLUC #### [facility] [address] [place] [address] Dr. Dilip Cartagena MCHC (RBC) [Mass/Vol] 31.8 g/dL Normal 29.9-35.2 [facility] Comment on above: Performed By: #### P OCGLUC #### [facility] [address] [place] [address] Dr. Dilip Cartagena MCV (RBC) [Entitic vol] 94.8 fL Normal 81.0-99.0 [facility] Comment on above: Performed By: #### P OCGLUC #### [facility] [address] [place] [address] Dr. Dilip Cartagena MONO # 0.6 103/ul Normal 0.3-0.8 [facility] Comment on above: Performed By: #### P OCGLUC #### [facility] [address] [place] [address] Dr. Dilip Cartagena Monocytes/100 WBC (Bld) 6.0 % Normal 1.7-12.0 [facility] Comment on above: Performed By: #### P OCGLUC #### [facility] [address] [place] [address] Dr. Dilip Cartagena NEUT # 6.1 103/ul Normal 1.4-6.5 [facility] Comment on above: Performed By: #### P OCGLUC #### [facility] [address] [place] [address] Dr. Dilip Cartagena Neutrophils/100 WBC (Bld) 65.6 % Normal 43.0-75.0 [facility] Comment on above: Performed By: #### P OCGLUC #### [facility] [address] [place] [address] Dr. Dilip Cartagena Platelet mean volume (Bld) [Entitic vol] 8.7 fL Critically low 9.5-13.5 [facility] Comment on above: Performed By: #### P OCGLUC #### [facility] [address] [address] [address] Dilip Cartagena PLT 335 103/ul Normal 150-450 [facility] Comment on above: Performed By: #### P OCGLUC #### [facility] [address] [address] [address] Dilip Cartagena RBC 4.24 106/ul Normal 4.20-5.40 [facility] Comment on above: Performed By: #### P OCGLUC #### [facility] [address] [address] [address] Dilip Cartagena WBC 9.4 103/ul Normal 4.0-11.0 [facility] Comment on above: Performed By: #### P OCGLUC #### [facility] [address] [address] ABD/PELV W CONon [...] Manuelito MARTINEZ Date: 2022-01-16 05:33 Normal [facility] CULTURE BLOODon 01-16-2022 Microscopic examination of blood, culture Culture Observations: NO GROWTH AT 5 DAYS. Isolate 1 [id number] Normal [facility] Comment on above: Performed By: #### L IPID, BMP, NA #### [facility] [address] [address] [address] Dilip Cartagena CULTURE URINEon 01-16-2022 CULTURE URINE Culture Observations : NO GROWTH. Normal [facility] Comment on above: Performed By: #### U RCX #### [facility] [address] [place], [place] [address] Dr. Dilip Cartagena Covid-19 PCR ([facility])on 01-03 SARS-CoV-2 (COVID-19) RNA NAKUL+probe Ql (Unsp spec) Not detected Normal NOT DETECTED [facility] Comment on above: Result Comment: When [...] for this test is supported by the [place] [employer]'s declaration that [...] used). Performed By: #### U RCX #### [facility] [address] [place] [address] Dr. Dilip Cartagena ECHO LIMITED STUDYon 10-14-2 022 ECHO LIMITED STUDY Patient: ELOISA ELIZALDE Exam Date: 01/16/2022 : 1940 Gender:F Ordering : DR CECILY VIEIRA . Admission #: [id number] Family : JIM [employer]TER Order #: [id number] CLICK HERE TO VIEW EXAM ECHOCARDIOGRAM REPORT [...] M.D. on 01/16/2022 at 14:35 Normal [facility] LACTATE/LACTIC ACIDon 2021 Lactate [Moles/Vol] 0.7 mmol/L Normal 0.4-1.9 [facility] Comment on above: Performed By: #### U RCX #### [facility] [address] [place] [address] Dr. Dilip Cartagena Lactate [Moles/Vol] 1.5 mmol/L Normal 0.4-1.9 [facility] Comment on above: Performed By: #### U RCX #### [facility] [address] [place] [address] Dr. Dilip Cartagena LIPASEon 01-16-2022 Lipase [Catalytic activity/Vol] 59.0 U/L Critically low 73.0-393.0 [facility] Comment on above: Performed By: #### L IPID, BMP, NA #### [facility] [address] [address] [address] Dilip Cartagena Lipase [Catalytic activity/Vol] 118.0 U/L Normal 73.0-393.0 [facility] Comment on above: Performed By: #### U RCX #### [facility] [address] [place] [address] Dr. Dilip Cartagena Lipase [Catalytic activity/Vol] 101.0 U/L Normal 73.0-393.0 [facility] Comment on above: Performed By: #### P OCGLUC #### [facility] [address] [address] [address] Dilip Cartagena POINT OF CARE GLUCOSEon 01-03 Glucose [Mass/Vol] 168 mg/dL Critically high 74-106 [facility] Comment on above: Performed By: #### P OCGLUC #### [facility] [address] [place] [address] Dr. Dilip Cartagena Glucose [Mass/Vol] 106 mg/dL Normal 74-106 [facility] Comment on above: Performed By: #### L IPID, BMP, NA #### [facility] [address] [place] [address] Dr. Dilip Cartagena Glucose [Mass/Vol] 221 mg/dL Critically high 74-106 [facility] Comment on above: Performed By: #### L IPID, BMP, NA #### [facility] [address] [place] [address] Dr. Dilip Cartagena PROF 14(COMP METB)on 022 Albumin [Mass/Vol] 3.8 g/dL Normal 3.4-5.0 [facility] Comment on above: Performed By: #### U RCX #### [facility] [address] [place] [address] Dr. Dilip Cartagena Albumin/Globulin [Mass ratio] 1.2 {ratio} Normal [facility] Comment on above: Performed By: #### U RCX #### [facility] [address] [place] [address] Dr. Dilip Cartagena ALP [Catalytic activity/Vol] 52 U/L Normal 46-116 [facility] Comment on above: Performed By: #### U RCX #### [facility] [address] [place] [address] Dr. Dilip Cartagena ALT [Catalytic activity/Vol] 194 U/L Critically high 14-59 [facility] Comment on above: Performed By: #### U RCX #### [facility] [address] [place] [address] Dr. Dilip Cartagena Anion gap [Moles/Vol] 13.5 mmol/L Normal [facility] Comment on above: Performed By: #### U RCX #### [facility] [address] [address] [address] Dilip Cartagena AST [Catalytic activity/Vol] 110 U/L Critically high 15-37 [facility] Comment on above: Performed By: #### U RCX #### [facility] [address] [address] [address] Dilip Cartagena Bilirubin [Mass/Vol] 0.4 mg/dL Normal 0.2-1.0 [facility] Comment on above: Performed By: #### U RCX #### [facility] [address] [address] [address] Dilip Catragena Calcium [Mass/Vol] 8.9 mg/dL Normal 8.5-10.1 [facility] Comment on above: Performed By: #### U RCX #### [facility] [address] [address] [address] Dilip Cartagena Chloride [Moles/Vol] 99 mmol/L Normal 98-107 [facility] Comment on above: Performed By: #### U RCX #### [facility] [address] [address] [address] Dilip Cartagena CO2 [Moles/Vol] 26.1 mmol/L Normal 21.0-32.0 [facility] Comment on above: Performed By: #### U RCX #### [facility] [address] [address] [address] Dilip Cartagena Creatinine [Mass/Vol] 0.93 mg/dL Normal 0.55-1.02 [facility] Comment on above: Performed By: #### U RCX #### [facility] [address] [address] [address] Dilip Cartagena EGFR-AF BAHRAINI >60 Normal >=60 [facility] Comment on above: Performed By: #### U RCX #### [facility] [address] [address] [address] Dilip Cartagena EGFR-NON AF BAHRAINI 58 mL/min/1.73m2 Critically low >=60 [facility] Comment on above: Performed By: #### U RCX #### [facility] [address] [address] [address] Dilip Cartagena Globulin (S) [Mass/Vol] 3.3 g/dL Normal [facility] Comment on above: Performed By: #### U RCX #### [facility] [address] [address] [address] Dilip Cartagena Glucose [Mass/Vol] 143 mg/dL Critically high 74-106 [facility] Comment on above: Performed By: #### U RCX #### [facility] [address] [address] [address] Dilip Cartagena Potassium [Moles/Vol] 4.6 mmol/L Normal 3.5-5.1 [facility] Comment on above: Performed By: #### U RCX #### [facility] [address] [address] [address] Dilip Cartagena Protein [Mass/Vol] 7.1 g/dL Normal 6.4-8.2 [facility] Comment on above: Performed By: #### U RCX #### [facility] [address] [address] [address] Dilip Cartagena Sodium [Moles/Vol] 134 mmol/L Critically low 136-145 [facility] Comment on above: Performed By: #### U RCX #### [facility] [address] [address] [address] Dilip Cartagena Urea nitrogen [Mass/Vol] 21.0 mg/dL Critically high 7.0-18.0 [facility] Comment on above: Performed By: #### U RCX #### [facility] [address] [address] [address] Dilip Cartagena Urea nitrogen/Creatinine [Mass ratio] 22.6 mg/mg Normal [facility] Comment on above: Performed By: #### U RCX #### [facility] [address] [address] [address] Dilip Cartagena T4on 01-16-2022 T4 [Mass/Vol] 10.90 ug/dL Normal 4.80-13.90 [facility] Comment on above: Performed By: #### P OCGLUC #### [facility] [address] [place] [address] Dr. Dilip Cartagena TSHon 01-16-2022 TSH 3.536 uIU/mL Normal 0.358-3.74 0 [facility] Comment on above: Performed By: #### P OCGLUC #### [facility] [address] [place] [address] Dr. Dilip Cartagena UA RANDOM W/MICROSCOPICon BACTERIA TRACE Abnormal NONE SEEN [facility] Comment on above: Performed By: #### U RCX #### [facility] [address] [place] [address] Dr. Dilip Cartagena Bilirubin Ql (U) Negative Normal NEGATIVE [facility] Comment on above: Performed By: #### U RCX #### [facility] [address] [place] [address] Dr. Dilip Cartagena CAST NONE SEEN Normal NONE SEEN [facility] Comment on above: Performed By: #### U RCX #### [facility] [address] [place] [address] Dr. Dilip Cartagena Clarity (U) CLEAR Normal CLEAR [facility] Comment on above: Performed By: #### U RCX #### [facility] [address] [place] [address] Dr. Dilip Cartagena Color (U) DK. ORANGE Abnormal YELLOW [facility] Comment on above: Performed By: #### U RCX #### [facility] [address] [place] [address] Dr. Dilip Cartagena Crystals LM Nom (Urine sed) NONE SEEN Normal NONE SEEN [facility] Comment on above: Performed By: #### U RCX #### [facility] [address] [place] [address] Dr. Dilip Cartagena Epithelial cells LM Ql (Urine sed) RARE Normal NONE SEEN /RARE [facility] Comment on above: Performed By: #### U RCX #### [facility] [address] [place] [address] Dr. Dilip Cartagena Glucose Ql (U) Negative Normal NEGATIVE [facility] Comment on above: Performed By: #### U RCX #### [facility] [address] [place] [address] Dr. Dilip Cartagnea Hemoglobin Ql (U) SMALL Abnormal NEGATIVE [facility] Comment on above: Performed By: #### U RCX #### [facility] [address] [place] [address] Dr. Dilip Cartagena Ketones Ql (U) 40 mg/dl Abnormal NEGATIVE [facility] Comment on above: Performed By: #### U RCX #### [facility] [address] [place] [address] Dr. Dilip Cartagena LEUKOCYTES TRACE Abnormal NEGATIVE [facility] Comment on above: Performed By: #### U RCX #### [facility] [address] [place] [address] Dr. Dilip Cartagena MUCOUS NONE SEEN Normal NONE SEEN [facility] Comment on above: Performed By: #### U RCX #### [facility] [address] [place] [address] Dr. Dilip Cartagena Nitrite Ql (U) Positive Abnormal NEGATIVE [facility] Comment on above: Performed By: #### U RCX #### [facility] [address] [place] [address] Dr. Dilip Cartagena pH (U) 6.5 [pH] Normal 5-9 [facility] Comment on above: Performed By: #### U RCX #### [facility] [address] [place] [address] Dr. Dilip Cartagena RBC 0-2 Normal 0-2 [facility] Comment on above: Performed By: #### U RCX #### [facility] [address] [place] [address] Dr. Dilip Cartagena SPEC GRAVITY 1.010 Normal 1.005-<=1. 025 [facility] Comment on above: Performed By: #### U RCX #### [facility] [address] [place] [address] Dr. Dilip Cartagena UA PROTEIN TRACE Normal NEGATIVE/ TRACE [facility] Comment on above: Performed By: #### U RCX #### [facility] [address] [address] [address] Dilip Cartagena Urobilinogen Qn (U) 0.2 {Hallie'U}/dL Normal 0.2 - 1. 0 [facility] Comment on above: Performed By: #### U RCX #### [facility] [address] [address] [address] Dilip Cartagena WBC 2-5 Abnormal NONE SEEN [facility] Comment on above: Performed By: #### U RCX #### [facility] [address] [address] [address] Dilip Cartagena US SINGLE QUAD RT [...] by: LORETTA ORELLANA Date: 2022-01-16 08:00 Normal [facility] US BEV DOP LEG LTon 01-17-20 US [...] by: LORETTA ORELLANA Date: 2022-01-16 07:58 Normal [facility] XR CHEST 2 Von 01-16-2022 XR CHEST [...] JOHANN PARKS Date: 2022-01-16 05:12 Normal [facility] CULTURE URINEon 01-03-2022 CULTURE URINE Isolate [...] Trimethoprim/Sulfamethoxazo le <=20 S F Normal [facility] Comment on above: Performed By: #### U RCX #### [facility] [address] [place] [address] Dr. Dilip Cartagena UA RANDOM W/MICROSCOPICon BACTERIA MODERATE Abnormal NONE SEEN [facility] Comment on above: Performed By: #### U RCX #### [facility] [address] [place] [address] Dr. Dilip Cartagena Bilirubin Ql (U) Negative Normal NEGATIVE [facility] Comment on above: Performed By: #### U RCX #### [facility] [address] [place] [address] Dr. Dilip Cartagena CAST NONE SEEN Normal NONE SEEN [facility] Comment on above: Performed By: #### U RCX #### [facility] [address] [address] [address] Dilip Cartagena Clarity (U) SL CLOUDY Abnormal CLEAR [facility] Comment on above: Performed By: #### U RCX #### [facility] [address] [place] [address] Dr. Dilip Cartagena Color (U) YELLOW Normal YELLOW [facility] Comment on above: Performed By: #### U RCX #### [facility] [address] [place] [address] Dr. Dilip Cartagena Crystals LM Nom (Urine sed) NONE SEEN Normal NONE SEEN [facility] Comment on above: Performed By: #### U RCX #### [facility] [address] [place] [address] Dr. Dilip Cartagena Epithelial cells LM Ql (Urine sed) FEW Abnormal NONE SEEN /RARE [facility] Comment on above: Performed By: #### U RCX #### [facility] [address] [place] [address] Dr. Dilip Cartagena Glucose Ql (U) Negative Normal NEGATIVE [facility] Comment on above: Performed By: #### U RCX #### [facility] [address] [place] [address] Dr. Dilip Cartagena Hemoglobin Ql (U) SMALL Abnormal NEGATIVE [facility] Comment on above: Performed By: #### U RCX #### [facility] [address] [place] [address] Dr. Dilip Cartagena Ketones Ql (U) Negative Normal NEGATIVE [facility] Comment on above: Performed By: #### U RCX #### [facility] [address] [place] [address] Dr. Dilip Cartagena LEUKOCYTES LARGE Abnormal NEGATIVE [facility] Comment on above: Performed By: #### U RCX #### [facility] [address] [place] [address] Dr. Dilip Cartagena MUCOUS NONE SEEN Normal NONE SEEN [facility] Comment on above: Performed By: #### U RCX #### [facility] [address] [place] [address] Dr. Dilip Cartagena Nitrite Ql (U) Negative Normal NEGATIVE [facility] Comment on above: Performed By: #### U RCX #### [facility] [address] [place] [address] Dr. Dilip Cartagena pH (U) 8.5 [pH] Normal 5-9 [facility] Comment on above: Performed By: #### U RCX #### [facility] [address] [place] [address] Dr. Dilip Cartagena RBC 0-2 Normal 0-2 [facility] Comment on above: Performed By: #### U RCX #### [facility] [address] [place] [address] Dr. Dilip Cartagena SPEC GRAVITY 1.010 Normal 1.005-<=1. 025 [facility] Comment on above: Performed By: #### U RCX #### [facility] [address] [place] [address] Dr. Dilip MCCOLLUM PROTEIN TRACE Normal NEGATIVE/ TRACE [facility] Comment on above: Performed By: #### U RCX #### [facility] [address] [place] [address] Dr. Dilip Cartagena Urobilinogen Qn (U) 0.2 {Hallie'U}/dL Normal 0.2 - 1. 0 [facility] Comment on above: Performed By: #### U RCX #### [facility] [address] [place] [address] Dr. Dilip Cartagena WBC 2-5 Abnormal NONE SEEN [facility] Comment on above: Performed By: #### U RCX #### [facility] [address] [place] [address] Dr. Dilip Cartagena CULTURE URINEon 12-22-2021 CULTURE URINE Culture Observations : LIGHT GROWTH OF MIXED GENITAL JAVON. NO POTENTIAL PATHOGENS SEEN. Normal [facility] Comment on above: Performed By: #### U RCX #### [facility] [address] [place] [address] Dr. Dilip Cartagena UA RANDOM W/MICROSCOPICon BACTERIA NONE SEEN Normal NONE SEEN [facility] Comment on above: Performed By: #### P OCGLUC #### [facility] [address] [place] [address] Dr. Dilip Cartagena Bilirubin Ql (U) Negative Normal NEGATIVE [facility] Comment on above: Performed By: #### P OCGLUC #### [facility] [address] [place] [address] Dr. Dilip Cartagena CAST NONE SEEN Normal NONE SEEN [facility] Comment on above: Performed By: #### P OCGLUC #### [facility] [address] [place] [address] Dr. Dilip Cartagena Clarity (U) CLEAR Normal CLEAR [facility] Comment on above: Performed By: #### P OCGLUC #### [facility] [address] [place] [address] Dr. Dilip Cartagena Color (U) LT. YELLOW Normal YELLOW [facility] Comment on above: Performed By: #### P OCGLUC #### [facility] [address] [place] [address] Dr. Dilip Cartagena Crystals LM Nom (Urine sed) NONE SEEN Normal NONE SEEN [facility] Comment on above: Performed By: #### P OCGLUC #### [facility] [address] [place] [address] Dr. Dilip Cartagena Epithelial cells LM Ql (Urine sed) FEW Abnormal NONE SEEN /RARE [facility] Comment on above: Performed By: #### P OCGLUC #### [facility] [address] [place] [address] Dr. Dilip Cartagena Glucose Ql (U) Negative Normal NEGATIVE [facility] Comment on above: Performed By: #### P OCGLUC #### [facility] [address] [place] [address] Dr. Dilip Cartagena Hemoglobin Ql (U) Negative Normal NEGATIVE [facility] Comment on above: Performed By: #### P OCGLUC #### [facility] [address] [place] [address] Dr. Dilip Cartagena Ketones Ql (U) Negative Normal NEGATIVE [facility] Comment on above: Performed By: #### P OCGLUC #### [facility] [address] [place] [address] Dr. Dilip Cartagena LEUKOCYTES Negative Normal NEGATIVE [facility] Comment on above: Performed By: #### P OCGLUC #### [facility] [address] [place] [address] Dr. Dilip Cartagena MUCOUS NONE SEEN Normal NONE SEEN [facility] Comment on above: Performed By: #### P OCGLUC #### [facility] [address] [place] [address] Dr. Dilip Cartagena Nitrite Ql (U) Negative Normal NEGATIVE [facility] Comment on above: Performed By: #### P OCGLUC #### [facility] [address] [place] [address] Dr. Dilip Cartagena pH (U) 6.0 [pH] Normal 5-9 [facility] Comment on above: Performed By: #### P OCGLUC #### [facility] [address] [place] [address] Dr. Dilip Cartagena RBC NONE SEEN Abnormal 0-2 [facility] Comment on above: Performed By: #### P OCGLUC #### [facility] [address] [place] [address] Dr. Dilip Cartagena SPEC GRAVITY 1.005 Normal 1.005-<=1. 025 [facility] Comment on above: Performed By: #### P OCGLUC #### [facility] [address] [place] [address] Dr. Dilip Cartagena UA PROTEIN Negative Normal NEGATIVE/ TRACE [facility] Comment on above: Performed By: #### P OCGLUC #### [facility] [address] [place] [address] Dr. Dilip Cartagena Urobilinogen Qn (U) 0.2 {Hallie'U}/dL Normal 0.2 - 1. 0 [facility] Comment on above: Performed By: #### P OCGLUC #### [facility] [address] [place] [address] Dr. Dilip Cartagena WBC NONE SEEN Normal NONE SEEN [facility] Comment on above: Performed By: #### P OCGLUC #### [facility] [address] [place] [address] Dr. Dilip Cartagena CULTURE URINEon 12-07-2021 CULTURE [...] Trimethoprim/Sulfamethoxazo le <=20 S F Normal [facility] Comment on above: Performed By: #### U RCX #### [facility] [address] [place] [address] Dr. Dilip Cartagena UA RANDOM W/MICROSCOPICon BACTERIA LARGE Abnormal NONE SEEN [facility] Comment on above: Performed By: #### P OCGLUC #### [facility] [address] [place] [address] Dr. Dilip Cartagena Bilirubin Ql (U) SMALL Abnormal NEGATIVE [facility] Comment on above: Performed By: #### P OCGLUC #### [facility] [address] [place] [address] Dr. Dilip Cartagena CAST NONE SEEN Normal NONE SEEN [facility] Comment on above: Performed By: #### P OCGLUC #### [facility] [address] [place] [address] Dr. Dilip Cartagena Clarity (U) CLEAR Normal CLEAR [facility] Comment on above: Performed By: #### P OCGLUC #### [facility] [address] [place] [address] Dr. Dilip Cartagena Color (U) DK. ORANGE Abnormal YELLOW [facility] Comment on above: Performed By: #### P OCGLUC #### [facility] [address] [place] [address] Dr. Dilip Cartagena Crystals LM Nom (Urine sed) NONE SEEN Normal NONE SEEN [facility] Comment on above: Performed By: #### P OCGLUC #### [facility] [address] [place] [address] Dr. Dilip Cartagena Epithelial cells LM Ql (Urine sed) FEW Abnormal NONE SEEN /RARE [facility] Comment on above: Performed By: #### P OCGLUC #### [facility] [address] [place] [address] Dr. Dilip Cartagena Glucose Ql (U) 100 mg/dl Abnormal NEGATIVE [facility] Comment on above: Performed By: #### P OCGLUC #### [facility] [address] [place] [address] Dr. Dilip Cartagena Hemoglobin Ql (U) LARGE Abnormal NEGATIVE [facility] Comment on above: Performed By: #### P OCGLUC #### [facility] [address] [place] [address] Dr. Dilip Cartagena Ketones Ql (U) TRACE Abnormal NEGATIVE [facility] Comment on above: Performed By: #### P OCGLUC #### [facility] [address] [place] [address] Dr. Dilip Cartagena LEUKOCYTES SMALL Abnormal NEGATIVE [facility] Comment on above: Performed By: #### P OCGLUC #### [facility] [address] [place] [address] Dr. Dilip Cartagena MUCOUS NONE SEEN Normal NONE SEEN [facility] Comment on above: Performed By: #### P OCGLUC #### [facility] [address] [place] [address] Dr. Dilip Cartagena Nitrite Ql (U) Positive Abnormal NEGATIVE [facility] Comment on above: Performed By: #### P OCGLUC #### [facility] [address] [address] [address] Dilip Cartagena pH (U) 8.0 [pH] Normal 5-9 [facility] Comment on above: Performed By: #### P OCGLUC #### [facility] [address] [place] [address] Dr. Dilip Cartagena RBC 50-75 Abnormal 0-2 [facility] Comment on above: Performed By: #### P OCGLUC #### [facility] [address] [place] [address] Dr. Dilip Cartagena SPEC GRAVITY <=1.005 Abnormal 1.005-<=1. 025 [facility] Comment on above: Performed By: #### P OCGLUC #### [facility] [address] [place] [address] Dr. Dilip Cartagena UA PROTEIN >300 Abnormal NEGATIVE/ TRACE [facility] Comment on above: Performed By: #### P OCGLUC #### [facility] [address] [place] [address] Dr. Dilip Cartagena Urobilinogen Qn (U) 1.0 {Hallie'U}/dL Normal 0.2 - 1. 0 [facility] Comment on above: Performed By: #### P OCGLUC #### [facility] [address] [place] [address] Dr. Dilip Cartagena WBC 10-20 Abnormal NONE SEEN [facility] Comment on above: Performed By: #### P OCGLUC #### [facility] [address] [place] [address] Dr. Dilip Cartagena XR KNEE CATRACHITO 4V [...] by: ERIC BERRY Date: 2021-12-04 15:52 Normal [place] MAMM SCREEN 3D CATRACHITO CADon 10-29-2021 MG MAMM SCREEN 3D CATRACHITO CAD Patient: JAMARI ELIZALDE Exam Date: 10/29/2021 : 1940 Gender:F Ordering : DR KILO CHAVEZ M.D. Admission #: [id number] Family : Order #: [id number] CLICK HERE TO VIEW EXAM RADIOLOGY REPORT [...] breast cancer at age 71. LOCATION: [facility] BREAST COMPOSITION: Heterogeneously dense,which may obscure [...] Berry M.D. on 10/30/2021 at 15:42 Normal [facility] XR DEXA BONE DENSITYon 10-29 XR DEXA [...] by: ERIC BERRY Date: 2021-10-29 17:24 Normal [facility] COVID-19 Positive/Negativeon 08-06-2020 SARS-CoV-2 (COVID-19) N gene NAKUL+probe Ql (Resp) Negative Negative [facility] Comment on above: Testing for SARS-CoV -2 by RT-PCRThis test was developed and its performance characteristics determined by [email or web address]) and validated at the [facility] This test has not been FDA cleared [...] (COVID-19) RNA NAKUL+probe Ql (Unsp spec) N/A [facility] Vital Signs Date Time Vital Sign Value Performing Clinician Sauli lity 09-25-2022 10:35-0400 Diastolic blood pressure 82 mm[Hg] PHYSICIAN NO [facility] 09-25-2022 10:35-0400 Heart rate 95 /min PHYSICIAN NO [facility] 09-25-2022 10:35-0400 Respiratory rate 16 /min PHYSICIAN NO [facility] 09-25-2022 10:35-0400 SaO2% (BldA) [Mass fraction] 99 % PHYSICIAN NO [facility] 09-25-2022 10:35-0400 Systolic blood pressure 161 mm[Hg] PHYSICIAN NO [facility] 09-25-2022 07:39-0400 Body height 165.1 cm PHYSICIAN NO [facility] 09-25-2022 07:39-0400 Body weight 63.5 kg PHYSICIAN NO [facility] 08-07-2022 11:06-0400 Blood Pressure Location Ivana Lue [facility] 08-07-2022 11:06-0400 Diastolic blood pressure 64 mm[Hg] Ivana Lue [facility] 08-07-2022 11:06-0400 Heart rate 67 /min Ivana Lue [facility] 08-07-2022 11:06-0400 Systolic blood pressure 132 mm[Hg] Ivana Lue [facility] 07-15-2022 10:25-0400 Blood Pressure Location Ivana Lue [facility] 07-15-2022 10:25-0400 Diastolic blood pressure 67 mm[Hg] Ivana Lue [facility] 07-15-2022 10:25-0400 Heart rate 108 /min Ivana Lue [facility] 07-15-2022 10:25-0400 Systolic blood pressure 144 mm[Hg] Ivana Lue [facility] 07-01-2022 08:21-0400 Blood Pressure Location Ivana Lue [facility] 07-01-2022 08:21-0400 Diastolic blood pressure 61 mm[Hg] Ivana Lue [facility] 07-01-2022 08:21-0400 Heart rate 90 /min Ivana Lue [facility] 07-01-2022 08:21-0400 Systolic blood pressure 118 mm[Hg] Ivana Lue [facility] 06-03-2022 07:53-0500 Diastolic blood pressure 70 mm[Hg] II Kilo Chavez Work Phone: [facility] 06-03-2022 07:53-0500 Heart rate 89 /min II Kilo Chavez Work Phone: [facility] 06-03-2022 07:53-0500 Respiratory rate 16 /min II Kilo Chavez Work Phone: [facility] 06-03-2022 07:53-0500 SaO2% (BldA) [Mass fraction] 96 % II Kilo Chavez Work Phone: [facility] 06-03-2022 07:53-0500 Systolic blood pressure 155 mm[Hg] II Kilo Chavez Work Phone: [facility] 06-02-2022 17:00-0500 Body height 162.56 cm II Kilo Chavez Work Phone: [facility] 06-02-2022 17:00-0500 Body temperature 97.6 [degF] II Kilo Chavez Work Phone: [facility] 06-02-2022 17:00-0500 Body weight 72.57 kg II Kilo Chavez Work Phone: [facility] Encounters Encounter Date Encounter Type Care Provider Facility Start: 07-13-2023 ambulatory SEBASTIÁN E LANDY Facili ty:[facility] Start: 06-23-2023 End: 06-23-2023 ambulatory FOZIA AICHHOLZ Not Available Start: 06-08-2023 End: 06-09-2023 ambulatory SEBASTIÁN E LANDY Facility:[facility] Start: 05-11-2023 End: 05-12-2023 ambulatory SEBASTIÁN E LANDY Facility:[facility] Start: 04-13-2023 End: 04-14-2023 ambulatory SEBASTIÁN E LANDY Facility:[facility] Start: 04-13-2023 End: 04-13-2023 Patient encounter procedure SEBASTIÁN E LANDY [facility] Start: 04-08-2023 End: 04-08-2023 ambulatory JEFF MEDELLIN Not Available Start: 03-31-2023 End: 03-31-2023 ambulatory FOZIA AICHHOLZ Not Available Start: 03-16-2023 End: 03-17-2023 ambulatory SEBASTIÁN E LANDY [facility] Start: 03-16-2023 End: 03-16-2023 Patient encounter procedure SEBAST[facility]ÁN E LAND[facility] Start: 02-16-2023 End: 02-17-2023 ambulatory SEBASTIÁN E LANDY Facility:[facility] [place] Start: 01-19-2023 End: 01-20-2023 ambulatory SEBASTIÁN E LANDY Facility:[facility] Start: 12-22-2022 End: 12-23-2022 ambulatory Ivana Hernandez Facility:[facility] Start: 12-22-2022 End: 12-22-2022 Patient encounter procedure Ivana Hernandez [facility] Start: 11-25-2022 End: 11-26-2022 ambulatory Ivana M. Lue Facility:[facility] Start: 11-25-2022 End: 11-25-2022 Patient encounter procedure [facility]. [facility] Start: 11-10-2022 ambulatory Jose Manuel R BRYNN Aguirre ty:[facility] Start: 10-26-2022 End: 10-27-2022 ambulatory Ivana M. Lue [facility] Start: 10-15-2022 ambulatory Ivana M. Lue Facility:[facility] [place] Start: 10-12-2022 End: 10-13-2022 ambulatory Ivana M. Lue [facility] Start: 10-12-2022 End: 10-12-2022 Patient encounter procedure Ivana M. Lue [facility] Start: 09-30-2022 End: 10-01-2022 ambulatory Ivana M. Lue Facility: [facility] Start: 09-30-2022 End: 09-30-2022 Patient encounter procedure Ivana M. Lue [facility] Start: 09-30-2022 End: 10-01-2022 [facility]ulatory [facility] Start: 09-30-2022 End: 09-30-2022 Patient encounter procedure [facility]ue [facility] Start: 09-25-2022 End: 09-25-2022 ambulatory Pipe Sanchez Facility:[facility] Start: 09-25-2022 End: 09-25-2022 Admission to same day surgery center PHYSICIAN JASMEET RASMUSSEN [facility] Work Phone: Start: 09-25-2022 End: 09-25-2022 ambulatory PHYSICIAN NO [facility] Work Phone: Start: 09-23-2022 ambulatory Ivana Hernandez Facility:[facility] [place] Start: 09-01-2022 End: 09-02-2022 ambulatory [employer] FOZIA TOBAR Facility:[facility] Start: 08-26-2022 ambulatory SEBASTIÁN E LANDY Facili ty:[facility] Start: 08-26-2022 End: 08-27-2022 ambulatory SEBASTIÁN E LANDY Facility:[facility] [place] Start: 08-07-2022 End: 08-08-2022 ambulatory Ivana Hernandez Facility:[facility] Start: 08-07-2022 End: 08-07-2022 Patient encounter procedure Ivana Hernandez [facility] Start: 07-30-2022 End: 07-30-2022 ambulatory Johann Dolan Facility:[facility] Start: 07-30-2022 End: 07-30-2022 ambulatory PHYSICIAN NO [facility] Work Phone: Start: 07-30-2022 End: 07-30-2022 Patient encounter procedure PHYSICIAN [facility] [address] Work Phone: Start: 07-23-2022 End: 07-23-2022 ambulatory [employer] FOZIA VILMAKurtNAN Facility:[facility] Start: 07-15-2022 End: 07-16-2022 ambulatory Ivana Hernandez Facility:[facility] [place] Start: 07-15-2022 End: 07-15-2022 Patient encounter procedure [facility] Start: 07-14-2022 ambulatory SEBASTIÁN E LANDY Facili ty:[facility] Start: 07-01-2022 End: 07-02-2022 ambulatory SEBASTIÁN E LANDY Facility:[facility] [place] Start: 07-01-2022 End: 07-01-2022 Patient encounter procedure SEBASTIÁN BILL [facility] Start: 07-01-2022 End: 07-02-2022 ambulatory Ivana Hernandez Facility:[facility] Start: 07-01-2022 End: 07-01-2022 Patient encounter procedure Ivana Hernandez [facility] Start: 06-19-2022 End: 06-19-2022 ambulatory [employer] FOZIA CHYNA Facility: Start: 06-17-2022 End: 06-18-2022 ambulatory [facility] Start: 06-17-2022 End: 06-17-2022 [facility] Start: 06-15-2022 End: 06-16-2022 ambulatory CARY BRENDA [facility] Start: 06-15-2022 End: 06-15-2022 [facility] Start: 06-12-2022 End: 06-13-2022 ambulatory CARY BRENDA [facility] Start: 06-12-2022 End: 06-12-2022 [facility] Start: 06-10-2022 End: 06-11-2022 ambulatory SG TOBAR [facility] Start: 06-10-2022 End: 06-10-2022 [facility] Start: 06-09-2022 End: 06-10-2022 ambulatory CARY BRENDA [facility] Start: 06-09-2022 End: 06-09-2022 [facility] Start: 06-07-2022 End: 06-08-2022 ambulatory CARY BRENDA [facility] Start: 06-07-2022 End: 06-07-2022 [facility] Start: 06-02-2022 End: 06-03-2022 Emergency department patient visit Oz Beckford Jr Facility:[facility] Start: 06-02-2022 End: 06-03-2022 Emergency department patient visit II Kilo Chavez Work Phone: [facility] Work Phone: Start: 05-20-2022 End: 05-20-2022 ambulatory [employer] FOZIA AICHHOLZ Facility:[facility] Start: 05-05-2022 End: 05-05-2022 ambulatory Johann Petersenjamesonanastacia Facility:[facility] Start: 05-05-2022 End: 05-05-2022 ambulatory II Kilo Chavez Work Phone: [facility] Work Phone: Start: 05-05-2022 End: 05-05-2022 Patient encounter procedure II Kilo Chavez Work Phone: [facility] [address] Work Phone: Start: 05-04-2022 End: 05-05-2022 ambulatory [employer] FOZIA AICHHOLZ Facility:[facility] Start: 02-25-2022 End: 02-26-2022 ambulatory [employer] FOZIA AICHHOLZ Facility:[facility] Start: 02-11-2022 End: 02-11-2022 ambulatory [employer]TER FOZIA AICHHOLZ Facility:[facility] Start: 01-30-2022 End: 01-31-2022 ambulatory [employer]TER FOZIA AICHHOLZ Facility:[facility] Start: 01-26-2022 End: 01-27-2022 ambulatory [employer] FOZIA AICHHOLZ Facility:[facility] Start: 01-16-2022 End: 01-17-2022 ambulatory [employer] FOZIA AICHHOLZ Facility:[facility] Start: 01-02-2022 ambulatory Silvia (Pcna)( Hist) [facility] Start: 12-31-2021 End: 12-31-2021 ambulatory [employer] FOZIA AICHHOLZ Facility:[facility] Start: 12-22-2021 End: 12-23-2021 ambulatory [employer] FOZIA AICHHOLZ Facility:[facility] Start: 12-04-2021 End: 12-05-2021 ambulatory [employer] FOZIA AICHHOLZ Facility:[facility] Start: 10-29-2021 End: 10-30-[address] KILO CHAVEZ Facility:[facility] Start: 08-06-2020 End: 08-06-2020 Patient encounter procedure Pipe Sanchez Work Phone: -Pre-Surgical Testing Procedures Date Procedure Procedure Detail Performing Clinician Start: 10-26-2022 Urodynamic studies Ivana Lue Start: 09-25-2022 Esophagogastroduodenoscopy PHYSICIAN NO [facility] Start: 06-15-2022 Sodium serum plasma or whole blood Jose G Zarco 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 - [employer] Work Phone: Start: 06-12-2022 Sodium serum plasma or whole blood Jose G 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 - [employer] Work Phone: Start: 06-10-2022 Assay of thyroid stimulating hormone tsh Sg Tobar MD Work Phone: Start: 06-10-2022 Lipid panel Sg Tobar MD Work Phone: Start: 06-09-2022 Comprehensive metabolic panel Caryyanick richard 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 - [employer] Work Phone: Start: 06-07-2022 Urinalysis microscopic only Cary Vu nori 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 - [employer] Work Phone: Start: 06-07-2022 Urnls dip stick/tablet rgnt auto w/o microscopy Cary Blankvely 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 - [employer] Work Phone: Start: 06-02-2022 SARS Antigen (LFIA) II Kilo Chavez Work Phone: Start: 05-13-2012 Cystourethroscopy with dilation of urethral stricture Ivana Lue Appendectomy Ivana Lue Arthroplasty of right shoulder Ivana Lue Bilateral cataracts (disorder) Ivana Lue Colonoscopy Ivana Lue Hysterectomy Ivana Lue Ligation of fallopian tube K athy Lue Plan of Treatment Date Care Activity Detail Author Start: 09-25-2022 [facility] Start: 05-05-2022 [facility] Start: 12-04-2021 Influenza vaccination INFLUENZA (#1) [facility] Start: 11-03-2021 Influenza vaccination Flu vaccine (# 1) [facility] Start: 04-05-2021 ADVANCE DIRECTIVE DISCUSSION ADVANCE DIRECTIVE DISCUSSION [facility] Start: 04-05-2021 DEPRESSION ASSESSMENT DEPRESSION ASS ESSMENT [facility] Start: 2006 BONE DENSITY BONE DENSITY [facility] Start: 2006 PNEUMOCOCCAL: 65+ (1 - PCV) PNEUMOCOCCAL: 65+ (1 - PCV) [facility] Start: 1991 SHINGRIX VACCINE (1 of 2) SHINGRIX VACCINE (1 of 2) [facility] Start: 1986 DIABETES SCREEN DIABETES SCREEN [facility] Start: 1960 DTaP/Tdap/Td vaccine (1 - Tdap) DTaP/Tdap/Td vaccine (1 - Tdap) [facility] Start: 1960 Urine microalbumin profile DTAP,TDAP,TD (1 - Tdap) [facility] Start: 1941 COVID-19 VACCINE (#1) COVID-19 VACCI NE (#1) [facility] Aldolase measurement [facility] Angiotensin converti ng enzyme [Enzymatic activity/volume] in Serum or Plasma [facility] C reactive protein [Mass/volume] in Serum or Plasma [facility] End: 06-07-2022 Culture, Urine [facility] Work Phone: Comment on above: Once for 1 Occurrenc es starting 06/07/2022 until 06/07/2022 Homogenous nuclear A b pattern [Titer] in Serum [facility] Nuclear Ab [Titer] i n Serum [facility] Parathyrin related protein [Moles/volume] in Serum or Plasma [facility] Patient Education Esophageal Dil ation Hiatal Hernia (DC) [facility] Work Phone: Patient referral [facility] Work Phone: Immunizations Immunization Date Immunization Notes Care Provider Rosio paris 04-03-2022 SARS-CoV-2 (COVID-19 ) [id number] Ivana Hernandez [facility] 12-22-2021 influenza virus vaccine, unspecified formulation Ivana Lue [facility] 12-17-2021 influenza virus vaccine, unspecified formulation Ivana Lue [facility] 08-07-2021 SARS-CoV-2 mRNA (hsxuteqqtpv-jpax-wkwck se) vaccine Ivana Lue [facility] 01-10-2021 SARS-CoV-2 (COVID-19 ) mRNA BNT-162b2 vax Ivana Luiris [facility] 12-18-2020 influenza virus vaccine, unspecified formulation Ivana Lue [facility] 05-20-2020 COVID-19 mRNA, Comirnaty (Pfizer) II Kilo Chavez Work Phone: [facility] Comment on above: Result Comment: 2022: [id number] 04-29-2020 COVID-19 mRNA, Comirnaty (Pfizer) II Kilo Chavez Work Phone: [facility] Comment on above: Result Comment: 2022: [id number] 12-28-2019 influenza virus vaccine, unspecified formulation Ivana Lue [facility] 12-28-2017 influenza virus vaccine, unspecified formulation Ivana Lue [facility] 01-07-2017 influenza virus vaccine, unspecified formulation Ivana Lue [facility] 12-12-2015 influenza virus vaccine, unspecified formulation Ivana Lue [facility] 12-07-2014 influenza virus vaccine, unspecified formulation Ivana Lue [facility] 12-07-2014 pneumococcal conjuga te vaccine, 13 valent Ivana Lue [facility] 01-20-2012 influenza, whole Ivana Lue [facility] Payers Date Payer Category Payer Self-pay [id number] 2019 Unknown MMO MMO MEDICARE SUPPLEMENT [id number] 2019-Present [phone] [address] [place] [address] Indemnity [id number] 2018 Unknown [id number] 2006 Medicare MEDICARE MEDICAR E A AND B [id number] 2006-Present [phone] [address] [address] [place] [address] Medicare [id number] 1959 Medicare [id number] 1959 Unknown [id number] 1941 Unknown [id number] 2.16.840.1.876848.3.579.2.173 1941 Unknown [id number] 2.16.840.1.652891.3.579.2.173 1941 Unknown [id number] 2.16.840.1.662567.3.579.2.173 1941 Unknown [id number] 2.16.840.1.605408.3.579.2.593 1941 Unknown [id number] 2.16.840.1.211692.3.579.2.593 1941 Unknown [id number] 2.16.840.1.578673.3.579.2.593 1941 Unknown [id number] 2.16.840.1.584718.3.579.2.593 1941 Unknown [id number] 2.16.840.1.725332.3.579.2.593 1941 Unknown [id number] 2.16.840.1.530433.3.579.2.593 1941 Unknown [id number] 2.16.840.1.179624.3.579.2.593 1941 Unknown [id number] 2.16.840.1.233659.3.579.2.593 1941 Unknown [id number] 2.16.840.1.563872.3.579.2.593 1941 Unknown [id number] 2.16.840.1.681738.3.579.2.593 1941 Unknown [id number] 2.16.840.1.468005.3.579.2.593 1941 Unknown [id number] 2.16.840.1.155653.3.579.2.593 1941 Unknown [id number] 2.16.840.1.602550.3.579.2.593 1941 Unknown [id number] 2.16.840.1.756847.3.579.2.593 1941 Unknown [id number] 2.16.840.1.747064.3.579.2.593 1941 Unknown [id number] 2.16.840.1.042400.3.579.2.593 1941 Unknown [id number] 2.16.840.1.084092.3.579.2.727 1941 Unknown [id number] 2.16.840.1.639974.3.579.2.727 1941 Unknown [id number] 2.16.840.1.671741.3.579.2.727 1941 Unknown [id number] 2.16.840.1.035117.3.579.2.727 1941 Unknown [id number] 2.16.840.1.679260.3.579.2.727 1941 Unknown [id number] 2.16.840.1.222074.3.579.2.727 1941 Unknown [id number] 2.16.840.1.189226.3.579.2.727 1941 Unknown [id number] 2.16.840.1.707842.3.579.2.727 1941 Unknown [id number] 2.16.840.1.234736.3.579.2.727 1941 Unknown [id number] 2.16.840.1.761072.3.579.2.727 1941 Unknown [id number] 2.16.840.1.426144.3.579.2.727 1941 Unknown [id number] 2.16.840.1.150524.3.579.2.727 1941 Unknown [id number] 2.16.840.1.805938.3.579.2.727 1941 Unknown [id number] 2.16.840.1.766224.3.579.2.727 1941 Unknown [id number] 2.16.840.1.873317.3.579.2.727 1941 Unknown [id number] 2.16.840.1.300227.3.579.2.727 1941 Unknown [id number] 2.16.840.1.287175.3.579.2.72 1941 Unknown [id number] 2.16.840.1.271417.3.579.2.72 1941 Unknown [id number] 2.16.840.1.424130.3.579.2.727 1941 Unknown [id number] 2.16.840.1.965512.3.579.2. 1941 Unknown [id number] 2.16.840.1.558006.3.579.2.727 1941 Unknown [id number] 2.16.840.1.272046.3.579.2.727 1941 Unknown [id number] 2.16.840.1.657165.3.579.2.727 1941 Unknown [id number] 2.16.840.1.217771.3.579.2.1259 1941 Unknown [id number] 2.16.840.1.158270.3.579.2.1259 1941 Unknown [id number] 2.16.840.1.949917.3.579.2.1259 Unknown [id number] 2.16.840.1.968943.3.579.2.531 Unknown [id number] 2.16.840.1.974899.3.579.2.531 Unknown [id number] 2.16.840.1.054138.3.579.2.531 Unknown [id number] 2.16.840.1.955906.3.579.2.531 Social History Date Type Detail Facility Tobacco smoking status AKIS Unknown if ever smoked [facility] Start: 1940 Sex Assigned At Female F [facility] Start: 07-29-2018 End: 07-15-2022 Tobacco smoking status NHIS Ex-smoker [facility] History of tobacco use Current smoker [facility] Start: 07-29-2018 Tobacco use and exposure Smokeless tobacco non-user [facility] Start: 06-13-2020 Alcohol intake Current drinke r of alcohol (finding) [facility] Start: 07-29-2018 History SDOH Alcohol Comment thisks may have a drink about 4-5 times per week [facility] Start: 1940 Sex Assigned At Not on file [facility] Start: 11-28-2020 Tobacco smoking status NHIS Never smoked tobacco (finding) [facility] Tobacco smoking status AKIS Tobacco smoking consumption unknown [employer] Phone: Tobacco smoking status Never [facility] Sex Assigned At Female [facility] Goals Date Patient Goal Desired Activity /State Functional Status Date Assessment Result Facility 11-25-2022 Functional Status N/A [facility] 08-07-2022 Functional Status N/A [facility] 07-15-2022 Functional Status N/A [facility] 07-01-2022 Functional Status N/A [facility] Clinical Notes 01-02-2022 to 11-25-2022 Silvia Kumar 01/02/2022 9:32 AM EDT Note Date & Type Note Facility 11-25-2022 Hospital Discharg e instructions Patient Education 11/25/2022 10:04:46 Urinary Tract Infection, Adult, Wnsx-hs-Wnyq Urinary Tract Infection, Adult A urinary tract [...] Follow these instructions at home: Medicines Take jkwr-adb-nefmpre and prescription medicines only as told by [...] provider. Document Revised: 11/01/2020 Document Reviewed: 11/01/2020 [employer] Patient Education 2022 AudioCatch. Follow Up Care 11/10/2022 14:10:04 With:David WELLS, JACKY Barrera, URO Address: When:Within 1 Month(s) Comments:w/ Cath change [facility] 10-26-2022 Note [id number]:[id number] [facility] 09-25-2022 Procedure note [facility] 08-07-2022 Hospital Discharg e instructions Patient [...] your health care provider. General instructions Take ekhv-gvn-wcznlpq and prescription medicines only as told by [...] Document Reviewed: 12/05/2020 [employer] Patient Education 2022 AudioCatch. Follow Up Care 07/15/2022 11:57:20 With:David WELLS, JACKY Barrera, URO Address: When: Unknown [facility] 07-15-2022 Hospital Discharg e instructions Patient Education [...] your health care provider. General instructions Take fduq-ofo-vxahwwr and prescription medicines only as told by [...] 10/03/2007 Document Revised: 04/04/2018 Document Reviewed: 04/04/2018 [employer] Patient Education 2020 AudioCatch. Follow Up Care 07/01/2022 13:04:43 With:David WELLS, JACKY Barrera, URO Address: [address], [place] [address] [phone] When: Unknown [facility] 07-01-2022 Note HPI Staff Jamari is a 82 y.o. female new patient here for neurogenic bladder and urinary retention. Referral by Fozia Doll CNP. Pt [facility] to [facility] on 06/02/22 due to altered mental [...] Illness Pt is here for Referral by [facility] due to Urinary Retention - [...] urine, unspecified) Pt had Ribeiro placed at [facility] on 06/02/2022 Pt had Ribeiro changed on 06/11/2022 at [facility] Pt has not had a [...] on CT Scan done on 06/02/2022 at [facility] Pt states that she has known about it for years, states it is stable. Declined metabolic workup at this time Cont to monitor 3. UTI (urinary tract infection) (N39.0: Urinary tract infection, site not specified) UTI (asymptomatic) 05/05/2022-[facility] 06/07/2022-[facility] - ribeiro exchange Denies lifelong [...] such as MS Suspected per cysto at [facility] in 2019 for gross hematuria. 3+ [...] Marilee loomis, accurate (more content not included)... [facility] Comment on above: Result Comment: [...] your health care provider. General instructions Take vnka-fvm-wjlfhte and prescription medicines only as told by [...] 10/03/2007 Document Revised: 04/04/2018 Document Reviewed: 04/04/2018 [employer] Patient Education 2019 AudioCatch. Follow Up Care 06/24/2022 08:16:27 With:David WELLS, JACKY Barrera, URO Address: When: Unknown [facility] 01-02-2022 Note Patient Outreach (DAVIN SHORT) JAMARI ELIZALDE ([id number]) 1940 F Date Time Provider Department 01/02/22 SHARRI DE LOS SANTOSLEY (PCNA)(HIST) HEMACO During your visit today, we recorded the following information about you: Silvia De Los Santos 01/02/2022 9:34 AM Signed [facility] Provider Action/FYI Received referral from Mister Bell for MAMMOGRAM Screening. Patient is outside of screening age. Will close encounter and end navigation. Jamari Elizalde was contacted to discuss their cancer screening needs. Pt identified by name and . Cancer Screening Care Gap Addressed: Breast Cancer Z12.31 Patient does not have appointment scheduled. Order pended. Outreach Outcome: [employer] message sent Payer: Insurance: Payor: MEDICARE / [...] by SILVIA DE LOS SANTOS on 01/02/22 [facility] 01-02-2022 Note HNO ID: [id number] Author: Silvia De Los Santos Service: ? Author Type: ? Type: Progress Notes Filed: 01/02/2022 9:34 AM Note Text: Summary: Mammogram Screening [facility] Provider Marvin/CHELSEA Received referral from Mister Bell for MAMMOGRAM Screening. Patient is outside of screening age. Will close encounter and end navigation. Jamari Elizalde was contacted to discuss their cancer screening needs. Pt identified by name and . Cancer Screening Care Gap Addressed: Breast Cancer Z12.31 Patient does not have appointment scheduled. Order pended. Outreach Outcome: [employer] message sent Payer: Insurance: Payor: MEDICARE / Plan: MEDICARE A AND B / Product Type: Medicare / Payor: MEDICARE / Plan: MEDICARE A AND B / Product Type: Medicare / Discussed with: Niharika Maharaj CNP Follow Up Actions: N/A Barriers: OUTSIDE SCREENING AGE Results Sent to Provider/Practice: JASMEET De Los Santos [facility] 01-02-2022 History of Presen t illness Narrative Summary: Mammogram Screening [facility] Provider Action/CHELSEA Received referral from [employer] [facility] for MAMMOGRAM Screening. Patient is outside of screening age. Will close encounter and end navigation. Jamari Elizalde was contacted to discuss their cancer screening needs. Pt identified by name and . Cancer Screening Care Gap Addressed: Breast Cancer Z12.31 Patient does not have appointment scheduled. Order pended. Outreach Outcome: [employer] message sent Payer: Insurance: Payor: MEDICARE / Plan: MEDICARE A AND B / Product Type: Medicare / Payor: MEDICARE / Plan: MEDICARE A AND B / Product Type: Medicare / Discussed with: Niharika Maharaj CNP Follow Up Actions: N/A Barriers: OUTSIDE SCREENING AGE Results Sent to Provider/Practice: JASMEET De Los Santos documented in this encounter [facility] Evaluation + Plan note Future Appointments Appointment Date:07/15/2022 01:00:00 PM Scheduled Provider: Location:[facility] Appointment Type:URO Nurse Visit [facility] Evaluation + Plan note Future Appointments Appointment Date:08/07/2022 10:15:00 AM Scheduled Provider:vIana Hernandez MD Location:[facility] Appointment Type:URO Office Visit [facility] Evaluation + Plan note Future Appointments Appointment Date:08/26/2022 08:30:00 AM Scheduled Provider: Location:[facility] Appointment Type:URO Nurse Visit [facility] Evaluation + Plan note Future Appointments Appointment Date:11/10/2022 02:00:00 PM Scheduled Provider: Location:[facility] Appointment Type:URO Nurse Visit [facility] Evaluation + Plan note Future Appointments Appointment Date:11/10/2022 02:00:00 PM Scheduled Provider: Location:[facility] Appointment Type:URO Nurse Visit Diagnostic Tests PendingUrine Culture 10/12/22 [facility] Evaluation + Plan note Future Appointments Appointment Date:12/23/2022 10:00:00 AM Scheduled Provider: Location:[facility] Appointment Type:URO Nurse Visit [facility] Evaluation + Plan note Future Appointments Appointment Date:01/19/2023 01:00:00 PM Scheduled Provider: Location:[facility] Appointment Type:URO Nurse Visit [facility] Evaluation + Plan note Future Appointments Appointment Date:04/13/2023 01:00:00 PM Scheduled Provider: Location:[facility] Appointment Type:URO Nurse Visit [facility] Evaluation + Plan note Future Appointments Appointment Date:05/11/2023 01:00:00 PM Scheduled Provider: Location:[facility] Appointment Type:URO Nurse Visit [facility] Evaluation note No Assessments Infor mation Available [facility] Evaluation note No assessment inform ation available [facility] Work Phone: Evaluation note Diagnosis Onset Date Weight loss acute [facility] Work Phone: Hospital course Narrative No data available for this section [facility] Hospital Discharge instructions No data available for this section [facility] Hospital Discharge instructions Additional Instructions DISCHARGE INSTRUCTIONS [...] if you have any problems. -Office number [phone] Work Phone: Progress note No data available for this section [facility] Advance Directives No Advanced Directives Records Found [...] or prosecute any alcohol or drug abuse patient.[facility] Care Teams (unrecognized sec tion and content) Jail Manager Relationship Specialty Start Date End Date Kilo Chavez II [address] [facility] [address] [place] [address] PCP - General Internal Medicine 06/30/18 Kilo Chavez II [address] [facility] [address] [place] [address] Referring Internal Medicine 09/30/18 Team Status: Inactive [...] Team Status: Active Member Role Status Dates Foiza Tobar Primary Care Provider Active Team Status: Inactive Member Role Status Dates Pipe Sanchez MD Attending Provider Active Fozia Tobar Primary Care Provider Active INFORMATION SOURCE (unrecogn ized section and content) DATE CREATED AUTHOR 01/06/2022 [facility] DATE CREATED AUTHOR AUTHOR'S ORGANIZ ATION 06/18/2022 [facility] DATE CREATED AUTHOR AUTHOR'S ORGANIZ ATION 09/12/2022 [facility] DATE CREATED AUTHOR AUTHOR'S ORGANIZ ATION 10/20/2022 [facility] DATE CREATED AUTHOR AUTHOR'S ORGANIZ ATION 06/22/2023 [facility] DATE CREATED AUTHOR AUTHOR'S ORGANIZ ATION 06/24/2023 [facility] EPIC Goals (unrecognized section and [...] BE BASED ON THE PRIMARY CLINICAL RECORDS. [employer]. provides no warranty or guarantee of the accuracy or completeness of information in this document.
[2023-06-28 22:57] VITALS: BP 151/73; PULSE 78; RESP 21; TEMP 36.6; O2SAT 94; O2SAT 96; BMI 26.9
[2023-06-28] MEDS: ASPIRIN 81 MG TAB.CHEW PO (23:29)
[2023-06-28] MEDS: SODIUM CHLORIDE 1,000 MG TABLET 1000 MG PO (23:29)
[2023-06-28] MEDS: SERTRALINE HCL 50 MG TABLET PO (23:32)
[2023-06-28 23:38] LABS: Glucometer 133 mg/dL (74-106)
[2023-06-28] MEDS: DOCUSATE SODIUM 100 MG CAPSULE PO (23:50)
[2023-06-28] MEDS: ENOXAPARIN SODIUM 40 MG/0.4 ML SYRINGE SUBQ (23:50)
[2023-06-28] MEDS: CEFTRIAXONE 1,000 MG in 0.9 % SODIUM CHLORIDE 50 ML 100 MG IV (23:51)
[2023-06-29] VITALS (114 sets, daily range): BP systolic 105–194; BP diastolic 45–115; PULSE 70–134; RESP 12–29; TEMP 36.3–36.8; O2SAT 86–97
[2023-06-29] MEDS: LORAZEPAM 0.5 MG TABLET PO (00:13)
[2023-06-29] MEDS: AZITHROMYCIN 500 MG in 0.9 % SODIUM CHLORIDE 250 ML 250 MG IV (00:49)
[2023-06-29 03:59] LABS: PCO2 VBG 17.6 mmHg (40.0-52.0); pH VBG 7.606 (7.330-7.430)
[2023-06-29 04:01] LABS: Basophils Percent Auto 0.3 % (0.2-2.0); Eosinophils Percent Auto 0.5 % (0.9-7.0); Hematocrit 31.9 % (36.0-48.0); Hemoglobin 10.2 g/dL (12.0-16.0); Immature Granulocytes Abs Auto 0.17 10^3/uL (0.00-0.03); Immature Granulocytes Pct Auto 1.9 % (0.0-0.5); Lymphocytes Absolute Auto 1.9 10^3/uL (1.2-3.8); Mean Corpuscular Hemoglobin 29.6 pg (26.7-34.0); Mean Corpuscular Volume 92.5 fL (81.0-99.0); Mean Platelet Volume 9.1 fL (9.5-13.5); Monocytes Absolute Auto 0.8 10^3/uL (0.3-0.8); Monocytes Percent Auto 8.7 % (1.7-12.0); Neutrophils Absolute Auto 5.8 10^3/uL (1.4-6.5); Neutrophils Percent Auto 66.6 % (43.0-75.0); Platelet Count 321 10^3/uL (150-450); Red Blood Count 3.45 10^6/uL (4.20-5.40); White Blood Count 8.7 10^3/uL (4.0-11.0)
[2023-06-29 04:02] LABS: Bilirubin Urine NEGATIVE (NEGATIVE); Blood Urine NEGATIVE (NEGATIVE); Clarity Urine CLEAR (CLEAR); Color Urine YELLOW (YELLOW); Glucose Urine UA NEGATIVE (NEGATIVE); Ketones Urine 15 mg/dL (NEGATIVE); Leukocyte Esterase Urine TRACE (NEGATIVE); Nitrite Urine NEGATIVE (NEGATIVE); Protein Urine TRACE mg/dL (NEG/TRACE); Specific Gravity Urine >=1.030 (1.005-1.025); Urobilinogen Urine 0.2 EU/dL (0.2-1.0)
[2023-06-29 04:07] LABS: Urine Microscopic Indicated YES
[2023-06-29 04:09] LABS: Bacteria Urine TRACE #/HPF (NONE SEEN)
[2023-06-29 04:10] LABS: Cast Seen? NONE SEEN #/LPF (NONE SEEN); Crystals Seen? None Seen #/HPF (None Seen); Mucus Urine NONE SEEN (NONE SEEN); Squamous Epithelial Cell Urine MODERATE #/LPF (NONE/RARE); Transitional Epi Cells Urine FEW #/LPF (NONE SEEN); Urine Culture Indicated YES
[2023-06-29 04:22] LABS: Alanine Aminotransferase 108 U/L (14-59); Albumin Level 2.9 g/dL (3.4-5.0); Alkaline Phosphatase 87 U/L (46-116); Anion Gap 14.4; Aspartate Amino Transferase 26 U/L (15-37); BUN Creatinine Ratio 32.9; Bilirubin Total 0.3 mg/dL (0.2-1.0); Calcium 8.1 mg/dL (8.5-10.1); Carbon Dioxide 20.1 mmol/L (21.0-32.0); Chloride 88 mmol/L (98-107); Estimated GFR (African America >60 (>=60); Estimated GFR (Non-African Ame >60 (>=60); Globulin 2.9 g/dL; Glucose 123 mg/dL (74-106); Potassium 4.5 mmol/L (3.5-5.1); Total Protein 5.8 g/dL (6.4-8.2); Troponin I High Sensitivity 39.8 pg/mL (4.0-51.3)
[2023-06-29 04:27] LABS: Sodium 118 mmol/L (136-145)
[2023-06-29 04:28] LABS: NT Pro B Type Natriuretic Pept >35000.0 pg/mL (<=1800.0)
[2023-06-29] MEDS: SODIUM CHLORIDE 1,000 MG TABLET 1000 MG PO ×3 (05:49→21:31)
[2023-06-29] MEDS: OMEPRAZOLE 40 MG CAPSULE.DR PO (05:49)
--- NOTE | 2023-06-29 06:00 | ECG_ITS ---
[facility] Test Date: 2023-06-29 Pat Name: JAMARI ELIZALDE Department: Room: [facility] Gender: Female [employer]ian [employer] Maker: : 1940 Requested By: SYEDA CLEMENTE Order Number: [id number] Reading MD: MARILYN THOMPSON Measurements Intervals [place] Rate: 81 P: 68 UT: 182 QRS: 100 QRSD: 82 T: 95 QT: 400 QTc: 438 Interpretive Statements 1100 Sinus rhythm 1470 with occasional supraventricular premature complexes 7102 Moderate right axis deviation Remote anteroseptal DE 9140 abnormal rhythm ECG Electronically Signed On 06-29-2023 6:52:26 EDT by MARILYN THOMPSON
[2023-06-29 07:51] LABS: Glucometer 147 mg/dL (74-106)
--- NOTE | 2023-06-29 08:47 | CM.NOTE ---
Important Message From Medicare discussed with pt, pt verbalizes understanding and signs paper. Original given to pt and copy placed in pt's chart.
[2023-06-29] MEDS: FUROSEMIDE 40 MG TABLET PO (08:50)
[2023-06-29] MEDS: EZETIMIBE 10 MG TABLET PO (08:50)
[2023-06-29] MEDS: CARVEDILOL 12.5 MG TABLET PO ×2 (08:50→21:30)
[2023-06-29] MEDS: AMANTADINE HCL 100 MG CAPSULE PO ×2 (08:50→21:30)
[2023-06-29] MEDS: AMLODIPINE BESYLATE 5 MG TABLET 2.5 MG PO (08:52)
--- NOTE | 2023-06-29 09:13 | PM.HP ---
HPI H&P: HPI History of Present Illness Chief complaint: Abnormal Labs, Altered Mental Status HYPONATREMIA Narrative: This is an 83 yo female with a past medical including post polio syndrome, DMT2, HTN, and right common femoral DVT (January 2022), recent admission from 06/14/23-06/19/23 for new acute onset of combined HF with EF 20-25%. She presented from Home after being called from her PCP's office for a low sodium level of 114. It appears that she was discharged with a sodium level of 124 with oral sodium tablets. Family reported that she was mildly confused, but no falls. At the time of admission exam she says her thoughts are less foggy and she is Alert and oriented x 3. She denies shortness of breath or chest pain. She is currently taking cipro for UTI from indwelling moser cath and is taking 3grams of sodium daily. She is a DNRCC. Opioid HPI Opioid Management Most Recent Opioid Data: Last Pain Intensity 3 06/19/23 10:29 Last Pain Assessment 06/29/23 11:00 Last ORT Total Score 1 06/28/23 22:57 Last ORT Risk Category Low Risk 06/28/23 22:57 Review of Systems ROS Narrative ROS: a complete review of systems were reviewed with patient and are positive as below or listed in History of Chief Complaint. General: no fever, chills, night sweats Head: no headache, trauma, visual changes, nausea or vomiting Skin: no reported rashes, itching or sores Eyes: no blurriness of vision Ears: no reported hearing loss, vertigo, earache, or tinnitus Throat: no sore throat, hoarseness, swelling of neck, or tongue pain Heart: no chest pain Lungs: no shortness of breath or cough GI: no diarrhea or vomiting/nausea Urinary: no urinary urgency, frequency or pain Neuro: no numbness or tingling HEM: no bleeding issues or bruising ENDO: no thyroid problems Psych: no anxiety or depression [facility] Medical History (Updated 06/29/23 @ 12:28 by Trinity Smith DO) Rectal prolapse ?K62.3 - Rectal prolapse (ICD-10) Hyponatremia ?E87.1 - Hypo-osmolality and hyponatremia (ICD-10) Acute HFrEF (heart failure with reduced ejection fraction) ?I50.21 - Acute systolic (congestive) heart failure (ICD-10) Bilateral pleural effusion ?J90 - Pleural effusion, not elsewhere classified (ICD-10) Hypertension ?I10 - Essential (primary) hypertension (ICD-10) Diabetes ?E11.9 - Type 2 diabetes mellitus without complications (ICD-10) Acute respiratory failure ?J96.00 - Acute respiratory failure, unspecified whether with hypoxia or hypercapnia (ICD-10) Acute combined systolic (congestive) and diastolic (congestive) heart failure ?I50.41 - Acute combined systolic (congestive) and diastolic (congestive) heart failure (ICD-10) Insomnia ?G47.00 - Insomnia, unspecified (ICD-10) Multifocal pneumonia ?J18.9 - Pneumonia, unspecified organism (ICD-10) Chronic indwelling Moser catheter ?Z97.8 - Presence of other specified devices (ICD-10) 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00 - Pure hypercholesterolemia, unspecified (ICD-10) Fatty liver ?K76.0 - Fatty (change of) liver, not elsewhere classified (ICD-10) Osteopenia ?M85.80 - Other specified disorders of bone density and structure, unspecified site (ICD-10) Hiatal hernia ?K44.9 - Diaphragmatic hernia without obstruction or gangrene (ICD-10) Esophageal erosions ?K22.10 - Ulcer of esophagus without bleeding (ICD-10) 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 - Osteopathy after poliomyelitis, right lower leg (ICD-10) ?B91 - Sequelae of poliomyelitis (ICD-10) Spina bifida ?Q05.9 - Spina bifida, unspecified (ICD-10) Surgical History S/P right rotator cuff repair ?Z98.890 - Other specified postprocedural states (ICD-10) H/O: hysterectomy ?Z90.710 - Acquired absence of both cervix and uterus (ICD-10) History of appendectomy ?Z90.49 - Acquired absence of other specified parts of digestive tract (ICD-10) H/O tubal ligation ?Z98.51 - Tubal ligation status (ICD-10) Social History Within the past year, how often did you have a drink containing alcohol: monthly or less Smoking status: Former smoker Highest level of school completed/degree received: some college, no degree Meds Home Medications and Allergies Home Medications ?Medication ?Instructions ?Recorded ?Confirmed ?Type amantadine HCl 100 mg capsule 100 mg PO BID 06/13/23 06/29/23 History amlodipine 2.5 mg tablet 2.5 mg PO DAILY 06/13/23 06/29/23 History aspirin 81 mg tablet,delayed 81 mg PO BEDTIME 06/13/23 06/29/23 History release (Adult Aspirin Regimen) biotin 10,000 mcg capsule 10,000 mcg PO BID 06/13/23 06/29/23 History cranberry 400 mg capsule 400 mg PO BID 06/13/23 06/29/23 History dextroamphetamine-amphetamine 15 15 mg PO DAILY 06/13/23 06/29/23 History mg tablet docusate sodium 100 mg capsule 100 mg PO BID PRN constipation 06/13/23 06/29/23 History ezetimibe 10 mg tablet 10 mg PO BEDTIME 06/13/23 06/29/23 History lisinopril 20 mg tablet 20 mg PO DAILY 06/13/23 06/29/23 History lorazepam 0.5 mg tablet 0.5 mg PO Q8H PRN anxiety 06/13/23 06/29/23 History metformin 500 mg tablet,extended 1,000 mg PO .DINNER 06/13/23 06/29/23 History release 24 hr omeprazole 20 mg capsule,delayed 20 mg PO .DINNER 06/13/23 06/29/23 History release omeprazole 40 mg capsule,delayed 40 mg PO .BREAKFAST 06/13/23 06/29/23 History release ondansetron HCl 4 mg tablet 4 mg PO Q6H PRN nausea and vomiting 06/13/23 06/29/23 History sertraline 50 mg tablet 50 mg PO BEDTIME 06/13/23 06/29/23 History trazodone 150 mg tablet 150 mg PO .QHS 06/13/23 06/29/23 History furosemide 40 mg tablet (Lasix) 40 mg PO DAILY #30 tabs 06/16/23 06/29/23 Rx carvedilol 12.5 mg tablet 12.5 mg PO BID #60 tabs 06/19/23 06/29/23 Rx sodium chloride 1,000 mg soluble 1,000 mg PO TID #90 tabs 06/19/23 06/29/23 Rx tablet glimepiride 1 mg tablet 0.5 mg PO DAILY 06/28/23 06/29/23 History lidocaine 5 % topical patch 1 patch topical DAILY PRN pain 06/28/23 06/29/23 History ciprofloxacin HCl 250 mg tablet 250 mg PO Q30D 06/29/23 06/29/23 History melatonin 5 mg tablet 5 mg PO .QHS 06/29/23 06/29/23 History Allergies Allergy/AdvReac Type Severity Reaction Status Date / Time adhesive tape Allergy Blistering Verified 06/13/23 15:31 Exam Narrative Exam Narrative: General: Patient is alert, and oriented to person, place and time with normal affect, proper hygiene Skin: no visible rashes, or ulcers Head: atraumatic, acephalic Eyes: PERRLA, no nystagmus present, conjunctiva clear, no scleral icterus Ears: normal gross auditory acuity Heart: Normal rate and rhythm, no murmurs/rubs/gallops Lungs: no audible wheezes, crackles and normal breath sounds all lung estrada Abdomen: Normal audible bowel sounds, no distension, No palpable masses, no organomegaly, no rebound/guarding/ or rigidity Musculoskeletal: no swelling bilateral lower extremities Neuro: CN II-X grossly intact Constitutional Vital Signs, click to edit/add: Last Vital Signs Temp 97.9 F 06/29/23 04:00 Pulse 89 06/29/23 08:00 Resp 21 06/29/23 04:00 BP 135/61 06/29/23 04:00 Pulse Ox 93 L 06/29/23 06:00 O2 Del Method Room Air 06/29/23 04:00 Results Labs Labs: Short CBC 06/28/23 06/29/23 Range/Units 20:08 03:51 WBC 9.0 8.7 (4.0-11.0) 10^3/uL Hgb 10.9 L 10.2 L (12.0-16.0) g/dL Hct 33.1 L 31.9 L (36.0-48.0) % Plt Count 370 321 (150-450) 10^3/uL BMP 06/28/23 06/29/23 20:08 03:51 Sodium 118 L* 118 L* Potassium 4.8 4.5 Chloride 85 L 88 L Carbon Dioxide 24.3 20.1 L BUN 26.0 H 28.0 H Creatinine 1.02 0.85 Glucose 151 H 123 H Calcium 8.3 L 8.1 L Liver Function 06/28/23 06/29/23 Range/Units 20:08 03:51 Total Bilirubin 0.4 0.3 (0.2-1.0) mg/dL AST 30 26 (15-37) U/L ALT 133 H 108 H (14-59) U/L Alkaline Phosphatase 100 87 (46-116) U/L Albumin 3.3 L 2.9 L (3.4-5.0) g/dL Urine 06/29/23 Range/Units 02:00 Urine Color Yellow (YELLOW) Urine Clarity Clear (CLEAR) Urine pH 6.0 (5.0-9.0) Ur Specific [place] >=1.030 A (1.005-1.025) Urine Protein Trace (NEG/TRACE) mg/dL Urine Glucose (UA) Negative (NEGATIVE) mg/dL ABG ABG results: 06/29/23 03:51 VBG pH 7.606 H VBG pCO2 17.6 L Assessment and Plan Assessment and Plan (1) Acute hyponatremia: Assessment and Plan: fluid restriction of 1L, stop sertraline, continue 1g sodium cloride TID, will get nephrology consult; get urine studies, calculate FENA. Complicated by her CHF as she also needs diuresed. (2) Acute combined systolic (congestive) and diastolic (congestive) heart failure: Assessment and Plan: continue lasix, coreg, proBNP was 35,000, last echo with EF 20-25%, Cardiology consult today (3) UTI (urinary tract infection): Assessment and Plan: UA positive, continue rocephin, awaiting culture (4) Chronic indwelling Moser catheter: Assessment and Plan: continue rocephin, was being treated outpatient with cipro (5) Neurogenic bladder: Assessment and Plan: has #4 (6) Depression: Assessment and Plan: continue trazodone but stop sertraline as can contribute to hyponatremia. Also taking amantadine Qualifiers: Depression Type: major depressive disorder Major depression recurrence: recurrent Active/Remission status: in full remission Qualified Code(s): F33.42 - Major depressive disorder, recurrent, in full remission (7) Poliomyelitis osteopathy of right lower leg: (8) Hypertension: Assessment and Plan: continue home meds Qualifiers: Hypertension type: primary hypertension Qualified Code(s): I10 - Essential (primary) hypertension Plan Patient is a DNRCC continue LOvenox for DVT prophylaxis Patient is expected to cross 2 midnights for medically necessary care Urinary Catheter Management Urinary Catheter Management Urethral: Cath placed during this visit: no
--- NOTE | 2023-06-29 09:57 | SWNOTE1 ---
SW received message from case management and pt may need SNF.
--- NOTE | 2023-06-29 10:14 | SWNOTE1 ---
SW met with pt to discuss dc needs. Pt does live at home with her . She does use a walker at home, her uses a quad cane. Pt does have family in the area and a good support system. SW explained to pt that there is a chance she may need SNF for rehab for a short time. SW let her know many of the facilities in the area are full and SW wants to make sure she will have a bed if she needs rehab. She voiced understanding. Pt voiced if she does need rehab, she would like the [facility]. SW offered list from medicare.gov with star ratings, but pt again voiced she wants the [facility]. SW to reach out to [facility] to see if and when they would have an opening. TORRES let pt know if she does get better and only needs home health, that is fine as well and we will re-evaluate that. She voiced understanding.
--- NOTE | 2023-06-29 10:33 | SWNOTE1 ---
TORRES reached out to Narda at [facility]. Kimberley did let SW know they are still tight on beds and they would have to let SW know daily. Pt likely would not be ready for dc for 1-2 days, [facility] is aware of this and is unsure of bed status at this time.
[2023-06-29 11:12] LABS: Glucometer 221 mg/dL (74-106)
--- NOTE | 2023-06-29 11:35 | CM.NOTE ---
Rounds made with Dr. Smith, no discharge today. PT recommendations werer for skilled therapy at discharge. Dr. Smith spoke with pt about reason for admission and lab work and also discussed skilled therapy. Pt will discuss with her .
[2023-06-29] MEDS: INSULIN ASPART 300 UNIT/3 ML PEN SUBQ ×2 (12:18→21:36)
--- NOTE | 2023-06-29 13:18 | SWNOTE1 ---
TORRES went back in to speak with pt. Pt's and daughter were in room. They are in agreement that pt does need rehab. TORRES advised them all that [facility] does not have any openings. They would like [facility]. TORRES to reach out to Nath[facility]. TORRES sent Nathaly an email.
[2023-06-29 14:24] LABS: Sodium 122 mmol/L (136-145)
--- NOTE | 2023-06-29 14:26 | SWNOTE1 ---
[facility] does have a discharge tomorrow and will review referral.
--- NOTE | 2023-06-29 14:55 | SWNOTE1 ---
Referral sent to [facility]. Referral included face sheet, ED note, H&P, provider notes, case management report, wound consult, nursing notes, diagnostic imaging, med list, and PT/OT notes.
[2023-06-29 15:24] LABS: Creatinine Urine Random 61.18 mg/dL (20.00-300.00); Sodium Urine Random 58 mmol/L (30-90)
[2023-06-29 16:11] LABS: Glucometer 154 mg/dL (74-106)
--- NOTE | 2023-06-29 16:15 | SWNOTE1 ---
TORRES marivied message back from Phoebe at [facility] and they can accept whenever pt is stable for dc.
--- NOTE | 2023-06-29 16:38 | PM.CACN ---
History of Present Illness History of Present Illness Consult date: 06/29/23 Chief complaint: Abnormal Labs, Altered Mental Status HYPONATREMIA Narrative: 83 yo female with a past medical including post polio syndrome, DMT2, HTN, and right common femoral DVT (January 2022), recent admission from 06/14/23-06/19/23 for new acute onset of combined HF with EF 20-25%. She was noted to have hyponatremia and her PCP's office advised admission. She was noted to have low NA during last admission and was discharged with a sodium level of 124 with oral sodium tablets. Family reported that she was mildly confused, but no falls. She is currently being treated for UTI. She was a DNRCC and now family wants full level of care. Review of Systems ROS Status of ROS 10 or more systems reviewed and unremarkable except as noted in history and below [facility] Medical History (Updated 06/29/23 @ 12:28 by Trinity Smith DO) Rectal prolapse ?K62.3 - Rectal prolapse (ICD-10) Hyponatremia ?E87.1 - Hypo-osmolality and hyponatremia (ICD-10) Acute HFrEF (heart failure with reduced ejection fraction) ?I50.21 - Acute systolic (congestive) heart failure (ICD-10) Bilateral pleural effusion ?J90 - Pleural effusion, not elsewhere classified (ICD-10) Hypertension ?I10 - Essential (primary) hypertension (ICD-10) Diabetes ?E11.9 - Type 2 diabetes mellitus without complications (ICD-10) Acute respiratory failure ?J96.00 - Acute respiratory failure, unspecified whether with hypoxia or hypercapnia (ICD-10) Acute combined systolic (congestive) and diastolic (congestive) heart failure ?I50.41 - Acute combined systolic (congestive) and diastolic (congestive) heart failure (ICD-10) Insomnia ?G47.00 - Insomnia, unspecified (ICD-10) Multifocal pneumonia ?J18.9 - Pneumonia, unspecified organism (ICD-10) Chronic indwelling Ribeiro catheter ?Z97.8 - Presence of other specified devices (ICD-10) 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00 - Pure hypercholesterolemia, unspecified (ICD-10) Fatty liver ?K76.0 - Fatty (change of) liver, not elsewhere classified (ICD-10) Osteopenia ?M85.80 - Other specified disorders of bone density and structure, unspecified site (ICD-10) Hiatal hernia ?K44.9 - Diaphragmatic hernia without obstruction or gangrene (ICD-10) Esophageal erosions ?K22.10 - Ulcer of esophagus without bleeding (ICD-10) 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 - Osteopathy after poliomyelitis, right lower leg (ICD-10) ?B91 - Sequelae of poliomyelitis (ICD-10) Spina bifida ?Q05.9 - Spina bifida, unspecified (ICD-10) Surgical History S/P right rotator cuff repair ?Z98.890 - Other specified postprocedural states (ICD-10) H/O: hysterectomy ?Z90.710 - Acquired absence of both cervix and uterus (ICD-10) History of appendectomy ?Z90.49 - Acquired absence of other specified parts of digestive tract (ICD-10) H/O tubal ligation ?Z98.51 - Tubal ligation status (ICD-10) Social History Within the past year, how often did you have a drink containing alcohol: monthly or less Smoking status: Former smoker Highest level of school completed/degree received: some college, no degree Meds Home Medications and Allergies Home Medications ?Medication ?Instructions ?Recorded ?Confirmed ?Type amantadine HCl 100 mg capsule 100 mg PO BID 06/13/23 06/29/23 History amlodipine 2.5 mg tablet 2.5 mg PO DAILY 06/13/23 06/29/23 History aspirin 81 mg tablet,delayed 81 mg PO BEDTIME 06/13/23 06/29/23 History release (Adult Aspirin Regimen) biotin 10,000 mcg capsule 10,000 mcg PO BID 06/13/23 06/29/23 History cranberry 400 mg capsule 400 mg PO BID 06/13/23 06/29/23 History dextroamphetamine-amphetamine 15 15 mg PO DAILY 06/13/23 06/29/23 History mg tablet docusate sodium 100 mg capsule 100 mg PO BID PRN constipation 06/13/23 06/29/23 History ezetimibe 10 mg tablet 10 mg PO BEDTIME 06/13/23 06/29/23 History lisinopril 20 mg tablet 20 mg PO DAILY 06/13/23 06/29/23 History lorazepam 0.5 mg tablet 0.5 mg PO Q8H PRN anxiety 06/13/23 06/29/23 History metformin 500 mg tablet,extended 1,000 mg PO .DINNER 06/13/23 06/29/23 History release 24 hr omeprazole 20 mg capsule,delayed 20 mg PO .DINNER 06/13/23 06/29/23 History release omeprazole 40 mg capsule,delayed 40 mg PO .BREAKFAST 06/13/23 06/29/23 History release ondansetron HCl 4 mg tablet 4 mg PO Q6H PRN nausea and vomiting 06/13/23 06/29/23 History sertraline 50 mg tablet 50 mg PO BEDTIME 06/13/23 06/29/23 History trazodone 150 mg tablet 150 mg PO .QHS 06/13/23 06/29/23 History furosemide 40 mg tablet (Lasix) 40 mg PO DAILY #30 tabs 06/16/23 06/29/23 Rx carvedilol 12.5 mg tablet 12.5 mg PO BID #60 tabs 06/19/23 06/29/23 Rx sodium chloride 1,000 mg soluble 1,000 mg PO TID #90 tabs 06/19/23 06/29/23 Rx tablet glimepiride 1 mg tablet 0.5 mg PO DAILY 06/28/23 06/29/23 History lidocaine 5 % topical patch 1 patch topical DAILY PRN pain 06/28/23 06/29/23 History ciprofloxacin HCl 250 mg tablet 250 mg PO Q30D 06/29/23 06/29/23 History melatonin 5 mg tablet 5 mg PO .QHS 06/29/23 06/29/23 History Allergies Allergy/AdvReac Type Severity Reaction Status Date / Time adhesive tape Allergy Blistering Verified 06/13/23 15:31 Exam Narrative Exam Narrative: General: Patient is alert, and oriented to person, place and time with normal affect, proper hygiene Skin: no visible rashes, or ulcers Head: atraumatic, acephalic Eyes: PERRLA, no nystagmus present, conjunctiva clear, no scleral icterus Ears: normal gross auditory acuity Heart: Normal rate and rhythm, no murmurs/rubs/gallops Lungs: no audible wheezes, crackles and normal breath sounds all lung estrada Abdomen: Normal audible bowel sounds, no distension, No palpable masses, no organomegaly, no rebound/guarding/ or rigidity Musculoskeletal: no swelling bilateral lower extremities Neuro: CN II-X grossly intact Constitutional Vital Signs, click to edit/add: Last Vital Signs Temp 97.4 F L 06/29/23 12:00 Pulse 82 06/29/23 15:57 Resp 15 06/29/23 15:57 BP 152/86 H 06/29/23 13:30 Pulse Ox 93 L 06/29/23 13:50 O2 Del Method Room Air 06/29/23 04:00 Results Labs and Meds Lab results: Cardiac Enzymes 06/28/23 06/29/23 Range/Units 20:08 03:51 AST 30 26 (15-37) U/L CBC 06/28/23 06/29/23 Range/Units 20:08 03:51 WBC 9.0 8.7 (4.0-11.0) 10^3/uL RBC 3.67 L 3.45 L (4.20-5.40) 10^6/uL Hgb 10.9 L 10.2 L (12.0-16.0) g/dL Hct 33.1 L 31.9 L (36.0-48.0) % Plt Count 370 321 (150-450) 10^3/uL Neut # (Auto) 6.3 5.8 (1.4-6.5) 10^3/uL Lymph # (Auto) 1.8 1.9 (1.2-3.8) 10^3/uL [place] # (Auto) 0.8 0.8 (0.3-0.8) 10^3/uL Eos # (Auto) 0.1 0.0 (0.0-0.7) 10^3/uL Baso # (Auto) 0.0 0.0 (0.0-0.1) 10^3/uL Comprehensive Metabolic Panel 06/28/23 06/29/23 06/29/23 Range/Units 20:08 03:51 13:07 Sodium 118 L* 118 L* 122 L* (136-145) mmol/L Potassium 4.8 4.5 (3.5-5.1) mmol/L Chloride 85 L 88 L (98-107) mmol/L Carbon Dioxide 24.3 20.1 L (21.0-32.0) mmol/L BUN 26.0 H 28.0 H (7.0-18.0) mg/dL Creatinine 1.02 0.85 (0.55-1.02) mg/dL Glucose 151 H 123 H (74-106) mg/dL Calcium 8.3 L 8.1 L (8.5-10.1) mg/dL AST 30 26 (15-37) U/L ALT 133 H 108 H (14-59) U/L Alkaline Phosphatase 100 87 (46-116) U/L Total Protein 6.6 5.8 L (6.4-8.2) g/dL Albumin 3.3 L 2.9 L (3.4-5.0) g/dL Intake and Output 06/29/23 06/29/23 06/29/23 07:59 15:59 23:59 Intake Total 300 / 700 1250 / 1250 Output Total 200 / 200 Balance 100 / 500 1250 / 1250 Intake: Oral 250 / 250 IV 300 / 300 1000 / 1000 0.9 % Sodium Chloride 1,000 ml 1000 / 1000 @ 75 mls/hr IV .[id number] ONE Rx# :[id number] Azithromycin 500 mg In 0.9 % 250 / 250 Sodium Chloride 250 ml @ 250 mls/hr IV Q24H KATELYNN Rx#:[id number] Ceftriaxone 1,000 mg In 0.9 % 50 / 50 Sodium Chloride 50 ml @ 100 mls /hr IV Q24H KATELYNN Rx#:[id number] Output: Urine Amount (Catheter) 200 / 200 Urethral 200 / 200 Other: Weight 74.3 kg Assessment and Plan Assessment and Plan (1) Acute hyponatremia: (2) Acute combined systolic (congestive) and diastolic (congestive) heart failure: (3) UTI (urinary tract infection): (4) Chronic indwelling Ribeiro catheter: (5) Neurogenic bladder: (6) Depression: Qualifiers: Depression Type: major depressive disorder Major depression recurrence: recurrent Active/Remission status: in full remission Qualified Code(s): F33.42 - Major depressive disorder, recurrent, in full remission (7) Poliomyelitis osteopathy of right lower leg: (8) Hypertension: Qualifiers: Hypertension type: primary hypertension Qualified Code(s): I10 - Essential (primary) hypertension Plan At this time, will focus on ADHF management with a focus on electrolytes. Once she is euvolemic, would recc cardiac eval for her CMP. She will benefit from a left heart cath. If sintia, then can be on GDMT and if repet ECHO shows EF < 35%, then consider ICD.
[2023-06-29 19:00] LABS: Sodium 119 mmol/L (136-145)
[2023-06-29] MEDS: CEFTRIAXONE 1,000 MG in 0.9 % SODIUM CHLORIDE 50 ML 50 MG IV (21:29)
[2023-06-29] MEDS: TRAZODONE HCL 50 MG TABLET 150 MG PO (21:29)
[2023-06-29] MEDS: ENOXAPARIN SODIUM 40 MG/0.4 ML SYRINGE SUBQ (21:29)
[2023-06-29] MEDS: DOCUSATE SODIUM 100 MG CAPSULE PO (21:30)
[2023-06-29] MEDS: ASPIRIN 81 MG TAB.CHEW PO (21:30)
[2023-06-29 21:45] LABS: Glucometer 152 mg/dL (74-106)
--- NOTE | 2023-06-29 22:49 | PC.NURSE ---
SPO2 dropping 86% and not rebounding applied 2 lts oxygen then 3lts. Will titrate accordingly
[2023-06-30] VITALS (83 sets, daily range): BP systolic 139–182; BP diastolic 74–93; PULSE 82–113; RESP 16–32; TEMP 36.3–37.2; O2SAT 83–98
[2023-06-30] MEDS: LORAZEPAM 0.5 MG TABLET PO (00:02)
[2023-06-30 04:33] LABS: Basophils Percent Auto 0.2 % (0.2-2.0); Eosinophils Percent Auto 0.4 % (0.9-7.0); Hematocrit 33.2 % (36.0-48.0); Hemoglobin 11.1 g/dL (12.0-16.0); Immature Granulocytes Abs Auto 0.05 10^3/uL (0.00-0.03); Immature Granulocytes Pct Auto 0.5 % (0.0-0.5); Lymphocytes Absolute Auto 2.5 10^3/uL (1.2-3.8); Mean Corpuscular HGB Conc 33.4 g/dL (29.9-35.2); Mean Corpuscular Hemoglobin 30.4 pg (26.7-34.0); Monocytes Absolute Auto 0.7 10^3/uL (0.3-0.8); Monocytes Percent Auto 7.5 % (1.7-12.0); Neutrophils Absolute Auto 6.2 10^3/uL (1.4-6.5); Neutrophils Percent Auto 65.4 % (43.0-75.0); Platelet Count 325 10^3/uL (150-450); Red Blood Count 3.65 10^6/uL (4.20-5.40); Red Cell Distribution Width 14.1 % (11.0-15.0); White Blood Count 9.5 10^3/uL (4.0-11.0)
[2023-06-30 04:37] LABS: PCO2 VBG 24.1 mmHg (40.0-52.0); pH VBG 7.535 (7.330-7.430)
[2023-06-30 04:54] LABS: Alanine Aminotransferase 104 U/L (14-59); Albumin Level 3.1 g/dL (3.4-5.0); Alkaline Phosphatase 94 U/L (46-116); Anion Gap 12.3; Aspartate Amino Transferase 22 U/L (15-37); BUN Creatinine Ratio 28.2; Bilirubin Total 0.4 mg/dL (0.2-1.0); Calcium 8.3 mg/dL (8.5-10.1); Carbon Dioxide 22.8 mmol/L (21.0-32.0); Chloride 89 mmol/L (98-107); Estimated GFR (African America >60 (>=60); Estimated GFR (Non-African Ame >60 (>=60); Globulin 3.2 g/dL; Glucose 141 mg/dL (74-106); Potassium 4.1 mmol/L (3.5-5.1); Total Protein 6.3 g/dL (6.4-8.2)
[2023-06-30 04:56] LABS: Sodium 120 mmol/L (136-145)
[2023-06-30] MEDS: SODIUM CHLORIDE 1,000 MG TABLET 1000 MG PO ×5 (05:33→21:25)
[2023-06-30] MEDS: OMEPRAZOLE 40 MG CAPSULE.DR PO (05:33)
[2023-06-30] MEDS: IPRATROPIUM/ALBUTEROL SULFATE 3 ML AMPUL.NEB IH (07:57)
--- NOTE | 2023-06-30 08:00 | RESP.RT ---
Titrated up to 6L with SpO2 not improving. Initiated Vapotherm
--- NOTE | 2023-06-30 08:08 | CA_ITS ---
Patient Name: JAMARI ELIZALDE MR#: [id number] : 1940 Exam Date: 06/30/2023 Ordering Doctor: JEFF LOPEZ . ECHOCARDIOGRAM REPORT PROCEDURE: CA ECHO LIMITED INDICATIONS: worsening CHF COMPARISON: None. DESCRIPTION: Limited ECHOCARDIOGRAM Real-time transthoracic echocardiography with 2D and M-mode performed. QUALITY: Technical quality was good. LEFT VENTRICLE: Normal chamber size. Borderline left ventricular hypertrophy. Global left ventricular systolic function is severely decreased. There is global hypokinesis with regional variability. No clear evidence of intracavitary thrombus seen. Echocontrast was not administered during this study. LV EF: Visual estimation of left ventricular ejection fraction is 15%. DIASTOLIC: ATRIAL SEPTUM: LEFT ATRIUM: Severe dilatation. RIGHT ATRIUM: Moderate dilatation. RIGHT VENTRICLE: Normal chamber size. Mildly decreased right ventricular systolic function. TRICUSPID VALVE: Normal mobility and thickness. MITRAL VALVE: Normal mobility and thickness. Mild mitral annular calcification. AORTIC VALVE: Normal trileaflet appearance. No visible sclerosis. Normal leaflet mobility. AORTIC ROOT: Normal diameter and appearance. PULMONIC VALVE: Normal thickness and mobility. PERICARDIUM: Small pericardial effusion. IVC: Dilated with no inspiratory collapse. PLEURA: Large left pleural effusion. CONCLUSION: 1. Left ventricle is normal in size and exhibits severely reduced systolic function. There is global hypokinesis with regional variability. No evidence intracavitary thrombi seen however echocardiographic contrast enhancing agent was not given during the study. Estimated LVEF is around 15%. 2. The right ventricle is normal in size and exhibits mildly reduced systolic function. 3. There is small pericardial effusion. 4. There is a large left pleural effusion. 5. The IVC is dilated with no inspiratory collapse indicative of elevated right atrial pressure. 6. Limited study performed with no Doppler interrogation as requested. Adult Echocardiography Procedure Report Left Ventricle LVEDD (3.7 - 5.6 cm): 4.81 cm LVESD (2.2 - 4.0 cm): 4.54 cm LVIVS thickness (0.6 - 1.2 cm): 0.95 cm LVPW thickness (0.5 - 1.0 cm): 1.08 cm LVOT Diameter 2.12 cm Left Ventricular Ejection Fraction: 15% Left Atrium LA Volume Index (2D A2C): 53.92 ml/m2 Left Atrium Systolic Dimension: 4.10 cm Mitral Valve Right Ventricle RV Internal Diastolic Dimension: 2.91 cm Aorta AO Root Diam: 2.81 cm Aortic Valve Tricuspid Valve Pulmonic Valve Right Atrium Right Atrium Systolic Pressure: 57.06 ml, 57.06 ml Dictated by: Yandel Kimball M.D. on 06/30/2023 at 15:08 Approved by: Yandel Kimball M.D. on 06/30/2023 at 15:15
--- NOTE | 2023-06-30 08:10 | XR_ITS ---
The [address] [address] Patient Name: JAMARI ELIZALDE MRN: [id number] date: 1940 Sex: F Assigned Patient Location: ICU Current Patient Location: ICU Accession/Order Number: [id number] Exam Date: 06/30/2023 08:03 Report Date: 06/30/2023 08:43 At the request of: JEFF LOPEZ Procedure: XR chest 1V EXAM: Portable chest REASON FOR EXAM: Respiratory distress and shortness of breath. TECHNIQUE: A portable frontal view of the chest was obtained. COMPARISON: 06/28/2023. FINDINGS: The lungs are well-inflated and show increased hazy opacity in the lung bases with small bilateral pleural effusions. The heart and mediastinum are stable in appearance. There is no mass or pathologic adenopathy. Osseous structures are normal. XR/XR chest 1V IMPRESSION: Radiographic worsening in the appearance of the lungs. This could be seen with bilateral pneumonia or with changes of congestive heart failure. If clinical concern remains, consider further evaluation with CT of the chest. Electronically authenticated by: NEGAR HARDIN Date: 06/30/2023 08:43
--- NOTE | 2023-06-30 08:12 | PM.PN ---
Progress Note: Subjective Subjective Interval history: Notified This morning at 8am by Nurse of patient oxygen decompensation. I ordered Vapotherm, stat chest X-ray showing worsening plural effusions bilaterally and limited echo to see if EF has worsened given her ProBNP is 35,000. Sodium this morning is 120. I also gave her IV lasix 20mg x 1. Financial Services Counselor did call about worsening EF seen on echo to now 15-20% and possibly mitral thrombus. Awaiting offical read. He recommended transfer to [facility]. I spoke with patient and daughter, Brenda about echo findings, chest X-ray and worsening clinical picture, I have her option of transfer to [facility]. The patient wants to remain a DNRCC and does not want transferred at this time. She wishes to be comfortable. At the time she is sitting comfortably in chair on Vapotherm. I also discussed option of Hospice. A consult was placed for them to come and do evaluation. Will still preceed with Nephrology consult today for her persistent hyponatremia, with also the challenge of Hypervolemia. Patient does not voice any other concerns at this time. Exam Narrative Exam Narrative: General: Patient is alert, and oriented to person, place and time but short of breath with conversing Skin: no visible rashes, or ulcers Head: atraumatic, acephalic Heart: Normal rate and rhythm, no murmurs/rubs/gallops Lungs:audible crackles and diminished breath sounds all lung estrada Abdomen: Normal audible bowel sounds, no distension, No palpable masses, no organomegaly, no rebound/guarding/ or rigidity Musculoskeletal:+1 swelling bilateral lower extremities Neuro: CN II-X grossly intact Constitutional Vital Signs, click to edit/add: Last Vital Signs Temp 98.7 F 06/30/23 04:00 Pulse 85 06/30/23 07:59 Resp 30 H 06/30/23 07:59 BP 148/78 H 06/30/23 04:00 Pulse Ox 84 L 06/30/23 07:59 O2 Del Method Nasal Cannula 06/30/23 07:59 O2 Flow Rate 3 06/30/23 07:59 Progress Note: Objective Labs Labs: Short CBC 06/30/23 Range/Units 04:22 WBC 9.5 (4.0-11.0) 10^3/uL Hgb 11.1 L (12.0-16.0) g/dL Hct 33.2 L (36.0-48.0) % Plt Count 325 (150-450) 10^3/uL BMP 06/29/23 06/29/23 06/30/23 13:07 18:38 04:22 Sodium 122 L* 119 L* 120 L* Potassium 4.1 Chloride 89 L Carbon Dioxide 22.8 BUN 22.0 H Creatinine 0.78 Glucose 141 H Calcium 8.3 L Liver Function 06/30/23 Range/Units 04:22 Total Bilirubin 0.4 (0.2-1.0) mg/dL AST 22 (15-37) U/L ALT 104 H (14-59) U/L Alkaline Phosphatase 94 (46-116) U/L Albumin 3.1 L (3.4-5.0) g/dL Progress Note: A&P Assessment and Plan (1) Acute hyponatremia: Assessment and Plan: fluid restriction of 1L, stopped sertraline, continue 1g sodium chloride TID but I increased to QID today, will get nephrology consult; FENA 0.6%, pre-renal from heart failure causing decreased effective renal perfusion. Appreciate nephrology input. (2) Acute combined systolic (congestive) and diastolic (congestive) heart failure: Assessment and Plan: continue lasix, coreg, proBNP was 35,000, last echo with EF 20-25% today with limited was 15-20%, Cardiology recommended transfer but please see above. Also hospice consult today (3) UTI (urinary tract infection): Assessment and Plan: UA positive, continue rocephin, awaiting culture Qualifiers: Urinary tract infection type: acute cystitis Hematuria presence: without hematuria Qualified Code(s): N30.00 - Acute cystitis without hematuria (4) Chronic indwelling Moser catheter: Assessment and Plan: continue rocephin, was being treated outpatient with cipro (5) Neurogenic bladder: Assessment and Plan: Has moser (6) Depression: Assessment and Plan: continue trazodone but stop sertraline as can contribute to hyponatremia. 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
[2023-06-30] MEDS: INSULIN ASPART 300 UNIT/3 ML PEN SUBQ ×4 (08:17→21:32)
[2023-06-30] MEDS: GLIMEPIRIDE 2 MG TABLET 0.5 MG PO (08:20)
[2023-06-30] MEDS: EZETIMIBE 10 MG TABLET PO (08:20)
[2023-06-30] MEDS: AMANTADINE HCL 100 MG CAPSULE PO ×2 (08:21→21:24)
[2023-06-30] MEDS: FUROSEMIDE 20 MG/2 ML VIAL IVP (08:21)
[2023-06-30] MEDS: LISINOPRIL 20 MG TABLET PO (08:21)
[2023-06-30] MEDS: FUROSEMIDE 40 MG TABLET PO ×2 (08:21→21:25)
[2023-06-30] MEDS: AMLODIPINE BESYLATE 5 MG TABLET 2.5 MG PO (08:21)
[2023-06-30] MEDS: CARVEDILOL 12.5 MG TABLET PO ×2 (08:22→21:25)
--- NOTE | 2023-06-30 09:18 | PC.NURSE ---
0745 patient spo2 86% breathing labored, audible wheezes, on 2L nasal cannula, o2 turned up to 3L spo2 continued to drop to 83%, repiratory called. 0753 respiratory in room, pt pulse ox 83%, o2 turned up to 5L per respiratory. 0758 patient spo2 not responding, o2 turned up to 6L per respiratory, breathing treatment administered by respiratory. 0813 patient placed on vapo therm at 40L 30% fio2 by respiratory spo2 now at 95%
--- NOTE | 2023-06-30 10:08 | PT.DAILY ---
Physical Therapy Daily Note PT Daily Note/Assess Start: 06/29/23 12:39 Freq: Status: Active Protocol: Document 06/30/23 09:55 [id number] (Rec: 06/30/23 10:07 [id number]) Physical Therapy Daily Note/Assessment Time In/Time Out Time In 09:43 Time Out 09:52 Subjective Subjective Reports she is doing okay. Patient on vapotherm. Requests to not tamia shoes as her feet are swollen and they will not fit. Patient received supine in bed. Just completed US of heart. Daughter present for a portion of treatment. Therapeutic Activity Time Therapeutic Activity Minutes (minutes) 9 Therapeutic Activity Units 1 Therapeutic Activity Treatment Bed Mobility Ability Moderate Assist,2 Person Assist Chair Transfer Ability Minimum Assist,Moderate Assist ,2 Person Assist Therapeutic Activity Comments Requires MOD A for LE management and bed mobility. VC's to lean forward secondary to posterior drift in sitting and standing. Able to hold self upright without A sitting EOB when posture corrected w/ VC's. Transfer: sit to RW MIN to MOD A +2 w/ VC's for safe hand placement on RW. Pivot transfer to chair with MIN A +2 w/ VC's to increase step length and height. Able to take ~8 small shuffling steps to chair. CB[facility] and nursing notified of patient in chair at bedside and acknowledged. Total Physical Therapy Time Total Therapy Minutes 9 Total Physical Therapy Units 1 Summary Daily Note Summary Patient with posterior drift from C of G in sitting and standing, able to correct sitting balance. Difficulty maintaining upright posture in standing. Patient fatigued and SOB after exertion. Held ther ex due to fatigue. Patient would benefit from SNF upon discharge secondary to decreased functional mobility and strength.
--- NOTE | 2023-06-30 10:17 | CM.NOTE ---
Rounds made with Dr. Smith, pt more short of breath this AM. Dr. Smith discussed with pt plan of care and consult for telenephrology today for further recommendations.
--- NOTE | 2023-06-30 10:24 | SWNOTE1 ---
SW spoke to Dr. Smith and pt has medically had a decline and at this time she would like to have hospice services and does not want further treatment. SW spoke with pt, pt's 2 daughters, and pt's in room. Pt and family in agreement and would like to use [facility]. SW did provide them with list of other hospice companies. Referral sent to [facility]. Referral included face sheet, ED note, H&P, provider notes, case management report, nursing notes, diagnostic imaging, med list, and PT/OT notes.
[2023-06-30 11:39] LABS: Glucometer 229 mg/dL (74-106)
--- NOTE | 2023-06-30 13:45 | SWNOTE1 ---
[facility] will be here at 5:30pm. SW notified nursing and verified family received call as well.
--- NOTE | 2023-06-30 15:54 | PM.NEPCN ---
History of Present Illness Reason for Consult Consult date: 06/30/23 Reason for consult: hyponatremia Requesting physician: Trinity Smith Chief Complaint Chief complaint: Abnormal Labs, Altered Mental Status HYPONATREMIA History of Present Illness Narrative: Patient is a 83-year-old female with past medical history of severe systolic heart failure came to the hospital with altered mental status and falls and was found to have hyponatremia which was found in the outside labs initially and 114 sodium and it was up to 120 today. The patient was also short of breath and was requiring higher oxygen. She does not use oxygen at home. She got Lasix 20 IV and 40 ordered today. She has 15-20% ejection fraction. She does not have any chest pain or shortness of breath when I saw her but she was requiring oxygen still. She has some upper extremity edema. Family was at bedside. She had low sodium of 1:30 during last admission but before that it was fine. The patient was not on thiazide diuretics at home. We were consulted for management of her hyponatremia. Her last urine osmolality during last admission was around 250 but her urine sodium this time was on the higher side although she was on diuretics Review of Systems ROS Status of ROS 10 or more systems reviewed and unremarkable except as noted in history and below [facility] Medical History (Updated 06/30/23 @ 10:56 by Trinity Smith, DO) Rectal prolapse ?K62.3 - Rectal prolapse (ICD-10) Hyponatremia ?E87.1 - Hypo-osmolality and hyponatremia (ICD-10) Acute HFrEF (heart failure with reduced ejection fraction) ?I50.21 - Acute systolic (congestive) heart failure (ICD-10) Bilateral pleural effusion ?J90 - Pleural effusion, not elsewhere classified (ICD-10) Hypertension ?I10 - Essential (primary) hypertension (ICD-10) Diabetes ?E11.9 - Type 2 diabetes mellitus without complications (ICD-10) Acute respiratory failure ?J96.00 - Acute respiratory failure, unspecified whether with hypoxia or hypercapnia (ICD-10) Acute combined systolic (congestive) and diastolic (congestive) heart failure ?I50.41 - Acute combined systolic (congestive) and diastolic (congestive) heart failure (ICD-10) Insomnia ?G47.00 - Insomnia, unspecified (ICD-10) Multifocal pneumonia ?J18.9 - Pneumonia, unspecified organism (ICD-10) Chronic indwelling Ribeiro catheter ?Z97.8 - Presence of other specified devices (ICD-10) 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00 - Pure hypercholesterolemia, unspecified (ICD-10) Fatty liver ?K76.0 - Fatty (change of) liver, not elsewhere classified (ICD-10) Osteopenia ?M85.80 - Other specified disorders of bone density and structure, unspecified site (ICD-10) Hiatal hernia ?K44.9 - Diaphragmatic hernia without obstruction or gangrene (ICD-10) Esophageal erosions ?K22.10 - Ulcer of esophagus without bleeding (ICD-10) 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 - Osteopathy after poliomyelitis, right lower leg (ICD-10) ?B91 - Sequelae of poliomyelitis (ICD-10) Spina bifida ?Q05.9 - Spina bifida, unspecified (ICD-10) Surgical History S/P right rotator cuff repair ?Z98.890 - Other specified postprocedural states (ICD-10) H/O: hysterectomy ?Z90.710 - Acquired absence of both cervix and uterus (ICD-10) History of appendectomy ?Z90.49 - Acquired absence of other specified parts of digestive tract (ICD-10) H/O tubal ligation ?Z98.51 - Tubal ligation status (ICD-10) Social History Within the past year, how often did you have a drink containing alcohol: monthly or less Smoking status: Former smoker Highest level of school completed/degree received: some college, no degree Meds Home Medications and Allergies Home Medications ?Medication ?Instructions ?Recorded ?Confirmed ?Type amantadine HCl 100 mg capsule 100 mg PO BID 06/13/23 06/29/23 History amlodipine 2.5 mg tablet 2.5 mg PO DAILY 06/13/23 06/29/23 History aspirin 81 mg tablet,delayed 81 mg PO BEDTIME 06/13/23 06/29/23 History release (Adult Aspirin Regimen) biotin 10,000 mcg capsule 10,000 mcg PO BID 06/13/23 06/29/23 History cranberry 400 mg capsule 400 mg PO BID 06/13/23 06/29/23 History dextroamphetamine-amphetamine 15 15 mg PO DAILY 06/13/23 06/29/23 History mg tablet docusate sodium 100 mg capsule 100 mg PO BID PRN constipation 06/13/23 06/29/23 History ezetimibe 10 mg tablet 10 mg PO BEDTIME 06/13/23 06/29/23 History lisinopril 20 mg tablet 20 mg PO DAILY 06/13/23 06/29/23 History lorazepam 0.5 mg tablet 0.5 mg PO Q8H PRN anxiety 06/13/23 06/29/23 History metformin 500 mg tablet,extended 1,000 mg PO .DINNER 06/13/23 06/29/23 History release 24 hr omeprazole 20 mg capsule,delayed 20 mg PO .DINNER 06/13/23 06/29/23 History release omeprazole 40 mg capsule,delayed 40 mg PO .BREAKFAST 06/13/23 06/29/23 History release ondansetron HCl 4 mg tablet 4 mg PO Q6H PRN nausea and vomiting 06/13/23 06/29/23 History sertraline 50 mg tablet 50 mg PO BEDTIME 06/13/23 06/29/23 History trazodone 150 mg tablet 150 mg PO .QHS 06/13/23 06/29/23 History furosemide 40 mg tablet (Lasix) 40 mg PO DAILY #30 tabs 06/16/23 06/29/23 Rx carvedilol 12.5 mg tablet 12.5 mg PO BID #60 tabs 06/19/23 06/29/23 Rx sodium chloride 1,000 mg soluble 1,000 mg PO TID #90 tabs 06/19/23 06/29/23 Rx tablet glimepiride 1 mg tablet 0.5 mg PO DAILY 06/28/23 06/29/23 History lidocaine 5 % topical patch 1 patch topical DAILY PRN pain 06/28/23 06/29/23 History ciprofloxacin HCl 250 mg tablet 250 mg PO Q30D 06/29/23 06/29/23 History melatonin 5 mg tablet 5 mg PO .QHS 06/29/23 06/29/23 History Allergies Allergy/AdvReac Type Severity Reaction Status Date / Time adhesive tape Allergy Blistering Verified 06/13/23 15:31 Exam Narrative: Exam Narrative: Alert and oriented Head atraumatic, no was no obvious bleeding Cardiovascular no lower extremity edema but upper extremity edema present Eyes nonicteric sclera Abdomen nondistended Skin no obvious rash Neurological normal speech Psychiatric normal mood Constitutional: Vital Signs, click to edit/add: Last Vital Signs Temp 97.6 F 06/30/23 12:00 Pulse 84 06/30/23 15:40 Resp 18 06/30/23 15:40 BP 146/74 H 06/30/23 12:00 Pulse Ox 95 06/30/23 15:40 O2 Del Method Nasal Cannula 06/30/23 12:45 O2 Flow Rate 3 06/30/23 12:45 FiO2 25 06/30/23 12:00 Results Lab Results Lab results: Most recent lab results Calcium 8.3 mg/dL (8.5-10.1) L 06/30/23 04:22 Magnesium 1.6 mg/dL (1.8-2.4) L 06/28/23 20:08 Assessment and Plan Assessment and Plan (1) Acute hyponatremia: (2) Acute combined systolic (congestive) and diastolic (congestive) heart failure: (3) UTI (urinary tract infection): Qualifiers: Urinary tract infection type: acute cystitis Hematuria presence: without hematuria Qualified Code(s): N30.00 - Acute cystitis without hematuria (4) Chronic indwelling Ribeiro catheter: (5) Neurogenic bladder: (6) Depression: Qualifiers: Depression Type: major depressive disorder Major depression recurrence: recurrent Active/Remission status: in full remission Qualified Code(s): F33.42 - Major depressive disorder, recurrent, in full remission (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 Monitor kidney function and sodium levels while she is on diuretics. I would prefer to stop her oral sodium tablets eventually because it can put her at increased risk for fluid overload. Continue to monitor sodium levels every 6 hours. Discussed with the bedside nurse and hospitalist Discussed with the patient in detail as well as the family members. Labs and previous records were reviewed by me and summarized above Seen by AV tele Video time 6 mins total time 39 mins
[2023-06-30 16:24] LABS: Glucometer 143 mg/dL (74-106)
[2023-06-30] MEDS: TRAZODONE HCL 50 MG TABLET 150 MG PO (21:24)
[2023-06-30] MEDS: ENOXAPARIN SODIUM 40 MG/0.4 ML SYRINGE SUBQ (21:24)
[2023-06-30] MEDS: ASPIRIN 81 MG TAB.CHEW PO (21:25)
[2023-06-30] MEDS: DOCUSATE SODIUM 100 MG CAPSULE PO (21:25)
[2023-06-30] MEDS: CEFTRIAXONE 1,000 MG in 0.9 % SODIUM CHLORIDE 50 ML 100 MG IV (21:26)
[2023-06-30 21:36] LABS: Glucometer 196 mg/dL (74-106)
[2023-07-01] VITALS (15 sets, daily range): BP systolic 102–133; BP diastolic 50–72; PULSE 73–90; RESP 18–20; TEMP 36.1–36.7; O2SAT 92–96
[2023-07-01 05:10] LABS: PCO2 VBG 38.8 mmHg (40.0-52.0); pH VBG 7.441 (7.330-7.430)
[2023-07-01 05:16] LABS: Basophils Percent Auto 0.2 % (0.2-2.0); Eosinophils Absolute Auto 0.1 10^3/uL (0.0-0.7); Eosinophils Percent Auto 0.7 % (0.9-7.0); Hematocrit 32.8 % (36.0-48.0); Hemoglobin 10.8 g/dL (12.0-16.0); Immature Granulocytes Abs Auto 0.05 10^3/uL (0.00-0.03); Immature Granulocytes Pct Auto 0.5 % (0.0-0.5); Lymphocytes Absolute Auto 1.7 10^3/uL (1.2-3.8); Lymphocytes Percent Auto 18.5 % (20.5-60.0); Mean Corpuscular HGB Conc 32.9 g/dL (29.9-35.2); Mean Corpuscular Hemoglobin 29.5 pg (26.7-34.0); Mean Corpuscular Volume 89.6 fL (81.0-99.0); Mean Platelet Volume 9.9 fL (9.5-13.5); Monocytes Absolute Auto 0.8 10^3/uL (0.3-0.8); Monocytes Percent Auto 8.1 % (1.7-12.0); Neutrophils Absolute Auto 6.8 10^3/uL (1.4-6.5); Platelet Count 313 10^3/uL (150-450); Red Blood Count 3.66 10^6/uL (4.20-5.40); Red Cell Distribution Width 14.1 % (11.0-15.0); White Blood Count 9.4 10^3/uL (4.0-11.0)
[2023-07-01 05:31] LABS: Alanine Aminotransferase 85 U/L (14-59); Albumin Globulin Ratio 0.9; Albumin Level 2.9 g/dL (3.4-5.0); Alkaline Phosphatase 87 U/L (46-116); Anion Gap 11.3; Aspartate Amino Transferase 18 U/L (15-37); Bilirubin Total 0.5 mg/dL (0.2-1.0); Estimated GFR (African America >60 (>=60); Estimated GFR (Non-African Ame >60 (>=60); Globulin 3.2 g/dL; Glucose 117 mg/dL (74-106); Total Protein 6.1 g/dL (6.4-8.2)
[2023-07-01 05:40] LABS: Chloride 89 mmol/L (98-107); Potassium 3.3 mmol/L (3.5-5.1); Sodium 123 mmol/L (136-145)
[2023-07-01] MEDS: LISINOPRIL 20 MG TABLET PO (08:34)
[2023-07-01] MEDS: OMEPRAZOLE 40 MG CAPSULE.DR PO (08:34)
[2023-07-01] MEDS: AMLODIPINE BESYLATE 5 MG TABLET 2.5 MG PO (08:34)
[2023-07-01] MEDS: SODIUM CHLORIDE 1,000 MG TABLET 1000 MG PO ×3 (08:34→21:17)
[2023-07-01] MEDS: GLIMEPIRIDE 2 MG TABLET 0.5 MG PO (08:35)
[2023-07-01] MEDS: CARVEDILOL 12.5 MG TABLET PO ×2 (08:40→21:17)
[2023-07-01] MEDS: AMANTADINE HCL 100 MG CAPSULE PO ×2 (08:40→21:16)
[2023-07-01] MEDS: EZETIMIBE 10 MG TABLET PO (08:40)
[2023-07-01] MEDS: FUROSEMIDE 40 MG TABLET PO ×2 (08:40→21:17)
--- NOTE | 2023-07-01 09:00 | PM.PN ---
Progress Note: Subjective Subjective Interval history: Patient has diuresed well overnight and yesterday. She is much more comfortable and her respiratory status has improved. She has normal mentation. Her Daughter Brenda is at bedside. Patient and family had discussion with [facility] yesterday and Patient wishes to go home with in hospice care. I discussed that we will get everything arranged today for her to home tomorrow. Will continue diuresis with lasix 40mg IV BID and will decrease the sodium chloride tablets to 1g BID today. Will need Hospice to set up some home oxygen. Exam Narrative Exam Narrative: General: Patient is alert, and oriented to person, place and time with normal affect, proper hygiene Skin: no visible rashes, or ulcers Head: atraumatic, acephalic Heart: Normal rate and rhythm, no murmurs/rubs/gallops Lungs: mild crackles at bases bilaterally Abdomen: Normal audible bowel sounds, no distension, No palpable masses, no organomegaly, no rebound/guarding/ or rigidity Musculoskeletal: no swelling bilateral lower extremities Neuro: CN II-X grossly intact Constitutional Vital Signs, click to edit/add: Last Vital Signs Temp 97.6 F 07/01/23 08:00 Pulse 83 07/01/23 08:03 Resp 20 07/01/23 08:00 BP 131/60 07/01/23 08:00 Pulse Ox 95 07/01/23 08:00 O2 Del Method Nasal Cannula 07/01/23 08:00 O2 Flow Rate 1 07/01/23 08:00 FiO2 25 06/30/23 12:00 Progress Note: Objective Labs Labs: Short CBC 07/01/23 Range/Units 04:19 WBC 9.4 (4.0-11.0) 10^3/uL Hgb 10.8 L (12.0-16.0) g/dL Hct 32.8 L (36.0-48.0) % Plt Count 313 (150-450) 10^3/uL BMP 07/01/23 04:19 Sodium 123 L* Potassium 3.3 L Chloride 89 L Carbon Dioxide 26.0 BUN 20.0 H Creatinine 0.77 Glucose 117 H Calcium 8.0 L Liver Function 07/01/23 Range/Units 04:19 Total Bilirubin 0.5 (0.2-1.0) mg/dL AST 18 (15-37) U/L ALT 85 H (14-59) U/L Alkaline Phosphatase 87 (46-116) U/L Albumin 2.9 L (3.4-5.0) g/dL Progress Note: A&P Assessment and Plan (1) Acute combined systolic (congestive) and diastolic (congestive) heart failure: Assessment and Plan: addition of IV lasix 40mg BID improved symptoms, Continue coreg, proBNP was 35,000, last echo with EF 20-25% today with limited was 15-20%, Cardiology recommended transfer but patient and family decided to stay here and go home with hospice. (2) Acute hyponatremia: Assessment and Plan: Sodium is improving with loop diuresis, 123. continue q6 hours, decrease sodium chloride to 1gram BID. I really appreciate Nephrology input. (3) UTI (urinary tract infection): Assessment and Plan: UA positive, continue rocephin Qualifiers: Hematuria presence: without hematuria Urinary tract infection type: acute cystitis Qualified Code(s): N30.00 - Acute cystitis without hematuria (4) Chronic indwelling Moser catheter: Assessment and Plan: continue rocephin, was being treated outpatient with cipro (5) Neurogenic bladder: Assessment and Plan: indwelling moser cath (6) Depression: Assessment and Plan: continue trazodone, hold sertraline Qualifiers: Active/Remission status: in full remission Depression Type: major depressive disorder Major depression recurrence: recurrent Qualified Code(s): F33.42 - Major depressive disorder, recurrent, in full remission (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 Qualifiers: Hypertension type: primary hypertension Qualified Code(s): I10 - Essential (primary) hypertension (9) Hypokalemia: Assessment and Plan: potassium 3.3, add KlorCon 10meq BID Plan Patient is a DNRCC continue LOvenox for DVT prophylaxis Patient will be discharged home tomorrow with [facility] accepting Care Urinary Catheter Management Urinary Catheter Management Urethral: Cath placed during this visit: no
--- NOTE | 2023-07-01 09:44 | SWNOTE1 ---
SW stopped in to speak with pt and daughter in room. They voiced everything went well with [facility]. Plan is to let hospice know when she is discharged and they will likely sign on. Plan is for pt to return home.
[2023-07-01] MEDS: POTASSIUM CHLORIDE 10 MEQ ER TABLET PO ×2 (09:50→21:17)
--- NOTE | 2023-07-01 10:23 | SWNOTE1 ---
TORRES spoke with doctor and there is a chance pt will need home oxygen, plan for discharge tomorrow. SW to reach out to [facility] and see if they will provide.
--- NOTE | 2023-07-01 11:34 | CM.NOTE ---
Rounded with Dr. Clara Smith. Family and patient have decided on home with [facility] at discharge. Probable discharge tomorrow 07/01. Pt will need Home O2. rail signal worker, Lyndsey Otto notified and will reach out to Hospice to let them know.
[2023-07-01 11:43] LABS: Glucometer 173 mg/dL (74-106)
[2023-07-01 12:27] LABS: Sodium 125 mmol/L (136-145)
--- NOTE | 2023-07-01 13:11 | SWNOTE1 ---
TORRES reached out to [facility] in regards to pt possibly needing oxygen and if they will provide. TORRES spoke to Charlene at [facility] and she said since she is not signed on yet they can't provide. TORRES did ask what company they use and explained if we have to set her up with oxygen she will have to do walk test and go through insurance, etc. Charlene is going to check on company and see if there is anything they can do to assist.
--- NOTE | 2023-07-01 13:24 | PT.DAILY ---
Physical Therapy Daily Note PT Daily Note/Assess Start: 06/29/23 12:39 Freq: Status: Active Protocol: Document 07/01/23 13:19 [email or web address] (Rec: 07/01/23 13:24 LILY [id number]) Physical Therapy Daily Note/Assessment Time In/Time Out Time In 13:00 Time Out 13:13 Pain In Pain N/A Pain Out Pain N/A Subjective Subjective Sitting in BS chair upon arrival. Denies pain. Willing to participate with PT. Issued supine ther ex for HEP. Therapeutic Exercise Time Therapeutic Exercise Minutes (minutes) 3 Therapeutic Exercise Units 0 Therapeutic Exercise Treatment Therapeutic Exercise Treatment Issued and reviewed supine program which was given to pt for HEP. Therapeutic Activity Time Therapeutic Activity Minutes (minutes) 9 Therapeutic Activity Units 1 Therapeutic Activity Treatment Bed Mobility Ability Moderate Assist Chair Transfer Ability Minimum Assist Therapeutic Activity Comments Pt sit>stand from BS chair Lida due to posterior lean. With VC and tactile cues pt able to straighten up. Pt amb 30' around bed with RW, CGA for safety. Very slow alcides/ short step length. Pt requires ModA to advance LEs into bed and shift her shoulders over. Total Physical Therapy Time Total Therapy Minutes 12 Total Physical Therapy Units 1 Summary Daily Note Summary Cont to demonstrate posterior lean in standing with assistance to correct. Very easily fatigued with activity.
[2023-07-01 14:10] LABS: Osmolality, Urine 493 mOsmol/kg (.)
--- NOTE | 2023-07-01 14:57 | SWNOTE1 ---
[facility] can't provide oxygen until pt signs on with hospice. SW to update nursing.
[2023-07-01] MEDS: DOCUSATE SODIUM 100 MG CAPSULE PO (16:07)
[2023-07-01 16:09] LABS: Glucometer 140 mg/dL (74-106)
[2023-07-01] MEDS: POLYETHYLENE GLYCOL 3350 17 GM POWDER PACKET PO (16:16)
[2023-07-01 18:14] LABS: Sodium 124 mmol/L (136-145)
[2023-07-01] MEDS: ENOXAPARIN SODIUM 40 MG/0.4 ML SYRINGE SUBQ (21:16)
[2023-07-01] MEDS: TRAZODONE HCL 50 MG TABLET 150 MG PO (21:16)
[2023-07-01] MEDS: ASPIRIN 81 MG TAB.CHEW PO (21:16)
[2023-07-01] MEDS: CEFTRIAXONE 1,000 MG in 0.9 % SODIUM CHLORIDE 50 ML 100 MG IV (21:17)
[2023-07-01 21:38] LABS: Glucometer 180 mg/dL (74-106)
[2023-07-01] MEDS: INSULIN ASPART 300 UNIT/3 ML PEN SUBQ (22:08)
[2023-07-02] MEDS: LORAZEPAM 0.5 MG TABLET PO (00:04)
[2023-07-02 00:40] LABS: Sodium 126 mmol/L (136-145)
[2023-07-02 04:00] VITALS: O2SAT 93
[2023-07-02 04:08] VITALS: BP 147/74; PULSE 80; TEMP 36.8; O2SAT 92
[2023-07-02 05:33] LABS: Basophils Percent Auto 0.3 % (0.2-2.0); Eosinophils Absolute Auto 0.1 10^3/uL (0.0-0.7); Eosinophils Percent Auto 0.8 % (0.9-7.0); Hematocrit 32.7 % (36.0-48.0); Hemoglobin 10.9 g/dL (12.0-16.0); Immature Granulocytes Abs Auto 0.06 10^3/uL (0.00-0.03); Immature Granulocytes Pct Auto 0.6 % (0.0-0.5); Lymphocytes Absolute Auto 2.3 10^3/uL (1.2-3.8); Lymphocytes Percent Auto 22.7 % (20.5-60.0); Mean Corpuscular HGB Conc 33.3 g/dL (29.9-35.2); Mean Corpuscular Hemoglobin 29.8 pg (26.7-34.0); Mean Corpuscular Volume 89.3 fL (81.0-99.0); Mean Platelet Volume 9.1 fL (9.5-13.5); Monocytes Absolute Auto 0.7 10^3/uL (0.3-0.8); Neutrophils Absolute Auto 6.8 10^3/uL (1.4-6.5); Neutrophils Percent Auto 68.6 % (43.0-75.0); Platelet Count 326 10^3/uL (150-450); Red Blood Count 3.66 10^6/uL (4.20-5.40); Red Cell Distribution Width 14.1 % (11.0-15.0)
[2023-07-02] MEDS: OMEPRAZOLE 40 MG CAPSULE.DR PO (05:43)
[2023-07-02 07:31] LABS: Glucometer 143 mg/dL (74-106)
[2023-07-02 07:34] LABS: Alanine Aminotransferase 81 U/L (14-59); Albumin Globulin Ratio 0.9; Albumin Level 2.9 g/dL (3.4-5.0); Alkaline Phosphatase 91 U/L (46-116); Anion Gap 13.4; Aspartate Amino Transferase 16 U/L (15-37); BUN Creatinine Ratio 20.7; Bilirubin Total 0.4 mg/dL (0.2-1.0); Calcium 8.4 mg/dL (8.5-10.1); Carbon Dioxide 26.5 mmol/L (21.0-32.0); Chloride 90 mmol/L (98-107); Estimated GFR (African America >60 (>=60); Estimated GFR (Non-African Ame >60 (>=60); Globulin 3.4 g/dL; Glucose 127 mg/dL (74-106); Potassium 3.9 mmol/L (3.5-5.1); Sodium 126 mmol/L (136-145); Total Protein 6.3 g/dL (6.4-8.2)
[2023-07-02 07:44] VITALS: BP 146/74; BP 147/74; PULSE 90; TEMP 36.6; O2SAT 93
--- NOTE | 2023-07-02 08:07 | PM.DS1 ---
DS: Providers Provider Date of admission: 06/28/23 22:40 Primary care physician: Fozia Tobar NP Admitting clinician: Trinity Smith Consults: 06/28/23 21:22 Consult to Cardiology Routine Reason for consultation: hyponatremia; elevated BNP; Echo EF 06/17 20-24% Has provider been notified: No Occupational Therapy Eval and Treat Routine Reason for consultation: weakness Has provider been notified: No Physical Therapy Eval and Treat Routine Reason for consultation: weakness Has provider been notified: No 06/29/23 09:04 Consult to Telenephrology Routine Reason for consultation: hyponatremia and Heart failure (needs diuretics) Has provider been notified: No 06/30/23 10:36 Consult to Hospice Routine Reason for consultation: severe, end stage congestive Heart failure Has provider been notified: No Discharging clinician: Trinity Smith DS: Diagnosis Discharge Diagnosis (1) Acute combined systolic (congestive) and diastolic (congestive) heart failure: (2) Acute hyponatremia: (3) UTI (urinary tract infection): Qualifiers: Hematuria presence: without hematuria Urinary tract infection type: acute cystitis Qualified Code(s): N30.00 - Acute cystitis without hematuria (4) Chronic indwelling Huffman catheter: (5) Neurogenic bladder: (6) Depression: Qualifiers: Active/Remission status: in full remission Depression Type: major depressive disorder Major depression recurrence: recurrent Qualified Code(s): F33.42 - Major depressive disorder, recurrent, in full remission (7) Poliomyelitis osteopathy of right lower leg: (8) Hypertension: Qualifiers: Hypertension type: primary hypertension Qualified Code(s): I10 - Essential (primary) hypertension (9) Hypokalemia: DS: Summary Hospital Course Hospital Course: This is an 83 yo female with a past medical including post polio syndrome, DMT2, HTN, and right common femoral DVT (January 2022), recent admission from 06/14/23-06/19/23 for new acute onset of combined HF with EF 20-25%. She presented from Home after being called from her PCP's office for a low sodium level of 114. It appears that she was discharged with a sodium level of 124 with oral sodium tablets. Family reported that she was mildly confused, but no falls. At the time of admission exam she says her thoughts are less foggy and she is Alert and oriented x 3. She denies shortness of breath or chest pain. She has indwelling huffman cath for neurogenic bladder and is taking 3grams of sodium daily. She is a DNRCC. on 06/30/23 patient oxygen decompensated, I ordered Vapotherm, stat chest X-ray showing worsening plural effusions bilaterally and limited echo to see if EF has worsened given her ProBNP is 35,000. Sodium was 120. I also gave her IV lasix 20mg x 1. Engineering Instructor did call about worsening EF seen on echo to now 15% and recommended transfer to [place] but after discussion with patient and family they opted to resume care here and consider hospice care for her severe, decompensated heart failure. Cardiology had nothing further to add after that. I also got a nephrology consult who opted to increase Lasix to 40mg BID which has drastically improved her symptoms and she is no longer requiring oxygen at the time of discharge. I have also stopped her Salt tablets as her sodium was improving on the diuresis alone given less dilutional effect. She will go home on Lasix 40mg BID up from daily Lasix 40mg. She will also have to be on fluid restrictive diet of 1.5L. I have also stopped the salt tablets. She can have bmp drawn at her PCP follow up to ensure sodium levels are still improving and BUN/CR stable and potassium stable. I have placed her on KlorCon 10meQ BID. The plan is to discharge home today with [facility] taking over care once she goes home. She is not requiring oxygen at the time of discharge. Status at Discharge Functional status at discharge: uses cane/walker Overall status at discharge: patient is progressing back to baseline Time Spent with Patient Time attestation: Total time spent providing and/or coordinating discharge services: Time spent: greater than 30 minutes Exam Narrative Exam Narrative: General: Patient is alert, and oriented to person, place and time with normal affect, proper hygiene Skin: no visible rashes, or ulcers Head: atraumatic, acephalic Heart: Normal rate and rhythm, no murmurs/rubs/gallops Lungs: mild crackles at bases bilaterally Abdomen: Normal audible bowel sounds, no distension, No palpable masses, no organomegaly, no rebound/guarding/ or rigidity Musculoskeletal: no swelling bilateral lower extremities or hands Neuro: CN II-X grossly intact Constitutional Vital Signs, click to edit/add: Last Vital Signs Temp 97.8 F 07/02/23 07:44 Pulse 90 07/02/23 07:44 Resp 16 07/02/23 07:44 BP 146/74 H 07/02/23 07:44 Pulse Ox 93 L 07/02/23 07:44 O2 Del Method Room Air 07/02/23 07:44 O2 Flow Rate 1 07/01/23 08:00 FiO2 25 06/30/23 12:00 DS: Data Data Completed and Pending Labs on day of discharge: Labs from last 24 hours 07/02/23 07/02/23 07/02/23 07:30 05:20 00:22 WBC 10.0 RBC 3.66 L Hgb 10.9 L Hct 32.7 L MCV 89.3 MCH 29.8 MCHC 33.3 RDW 14.1 Plt Count 326 MPV 9.1 L Neut % (Auto) 68.6 Lymph % (Auto) 22.7 Kane % (Auto) 7.0 Eos % (Auto) 0.8 L Baso % (Auto) 0.3 Neut # (Auto) 6.8 H Lymph # (Auto) 2.3 Kane # (Auto) 0.7 Eos # (Auto) 0.1 Baso # (Auto) 0.0 Abs Immat Gran (auto) 0.06 H Imm/Tot Granulo (auto) 0.6 H Sodium 126 L 126 L Potassium 3.9 Chloride 90 L Carbon Dioxide 26.5 Anion Gap 13.4 BUN 17.0 Creatinine 0.82 Est GFR ( Amer) >60 Est GFR (Non-Af Amer) >60 BUN/Creatinine Ratio 20.7 Glucose 127 H Calcium 8.4 L Total Bilirubin 0.4 AST 16 ALT 81 H Alkaline Phosphatase 91 Total Protein 6.3 L Albumin 2.9 L Globulin 3.4 Albumin/Globulin Ratio 0.9 Urine Osmolality POC Glucose 143 H 07/01/23 07/01/23 07/01/23 21:36 17:58 16:08 WBC RBC Hgb Hct MCV MCH MCHC RDW Plt Count MPV Neut % (Auto) Lymph % (Auto) Kane % (Auto) Eos % (Auto) Baso % (Auto) Neut # (Auto) Lymph # (Auto) Kane # (Auto) Eos # (Auto) Baso # (Auto) Abs Immat Gran (auto) Imm/Tot Granulo (auto) Sodium 124 L* Potassium Chloride Carbon Dioxide Anion Gap BUN Creatinine Est GFR ( Amer) Est GFR (Non-Af Amer) BUN/Creatinine Ratio Glucose Calcium Total Bilirubin AST ALT Alkaline Phosphatase Total Protein Albumin Globulin Albumin/Globulin Ratio Urine Osmolality POC Glucose 180 H 140 H 07/01/23 07/01/23 06/29/23 11:58 11:38 13:22 WBC RBC Hgb Hct MCV MCH MCHC RDW Plt Count MPV Neut % (Auto) Lymph % (Auto) Kane % (Auto) Eos % (Auto) Baso % (Auto) Neut # (Auto) Lymph # (Auto) Kane # (Auto) Eos # (Auto) Baso # (Auto) Abs Immat Gran (auto) Imm/Tot Granulo (auto) Sodium 125 L Potassium Chloride Carbon Dioxide Anion Gap BUN Creatinine Est GFR ( Amer) Est GFR (Non-Af Amer) BUN/Creatinine Ratio Glucose Calcium Total Bilirubin AST ALT Alkaline Phosphatase Total Protein Albumin Globulin Albumin/Globulin Ratio Urine Osmolality 493 POC Glucose 173 H Discharge Plan Discharge Disposition: Home, Self-Care Condition: Good Discharge Medications: New furosemide 40 mg Tablet 40 mg PO BID 30 Days Qty: 60 0RF potassium chloride 10 mEq Tablet,Er Particles/Crystals 10 meq PO BID 30 Days Qty: 60 0RF Continued amlodipine 2.5 mg tablet 2.5 mg PO DAILY amantadine HCl 100 mg capsule 100 mg PO BID lisinopril 20 mg tablet 20 mg PO DAILY lorazepam 0.5 mg tablet 0.5 mg PO Q8H PRN (Reason: anxiety) trazodone 150 mg tablet 150 mg PO .QHS dextroamphetamine-amphetamine 15 mg tablet 15 mg PO DAILY metformin 500 mg tablet extended release 24 hr 1,000 mg PO .DINNER biotin 10,000 mcg capsule 10,000 mcg PO BID omeprazole 20 mg capsule,delayed release(DR/EC) 20 mg PO .DINNER omeprazole 40 mg capsule,delayed release(DR/EC) 40 mg PO .BREAKFAST aspirin [Adult Aspirin Regimen] 81 mg tablet,delayed release (DR/EC) 81 mg PO BEDTIME cranberry 400 mg capsule 400 mg PO BID Rx Instructions: administer with meals ezetimibe 10 mg tablet 10 mg PO BEDTIME docusate sodium 100 mg capsule 100 mg PO BID PRN (Reason: constipation) ondansetron HCl 4 mg tablet 4 mg PO Q6H PRN (Reason: nausea and vomiting) carvedilol 12.5 mg Tablet 12.5 mg PO BID Qty: 60 0RF glimepiride 1 mg tablet 0.5 mg PO DAILY Rx Instructions: AM lidocaine 5 % adhesive patch,medicated 1 patch topical DAILY PRN (Reason: pain) Rx Instructions: on 12 hours off 12 hours as needed ciprofloxacin HCl 250 mg tablet 250 mg PO Q30D Rx Instructions: ONCE A MONTH ON DAY OF HUFFMAN CHANGE melatonin 5 mg tablet 5 mg PO .QHS Discontinued sertraline 50 mg tablet 50 mg PO BEDTIME furosemide [Lasix] 40 mg tablet 40 mg PO DAILY Qty: 30 0RF sodium chloride 1,000 mg tablet,soluble 1,000 mg PO TID Qty: 90 0RF Activity: ambulate only with your walker Diet: other Diet Detail: 1.5 liter fluid restriction Print Language: Martiniquais Patient Instructions: Furosemide (By mouth), Potassium Chloride (By mouth), Hyponatremia (DC) 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 [facility] phone number is [phone]. Forms: Portal Instructions Follow Up Appointments: Please call Fozia Tobar NP on Tuesday 07/04 to schedule a follow up appt. for 5-7 days following discharge. Will need BMP check 5-7 days [phone] Discharge location: Home today, Please notify [facility] about discharge home
[2023-07-02] MEDS: CARVEDILOL 12.5 MG TABLET PO (09:46)
[2023-07-02] MEDS: POLYETHYLENE GLYCOL 3350 17 GM POWDER PACKET PO (09:46)
[2023-07-02] MEDS: FUROSEMIDE 40 MG TABLET PO (09:46)
[2023-07-02] MEDS: AMLODIPINE BESYLATE 5 MG TABLET 2.5 MG PO (09:46)
[2023-07-02] MEDS: DOCUSATE SODIUM 100 MG CAPSULE PO (09:46)
[2023-07-02] MEDS: AMANTADINE HCL 100 MG CAPSULE PO (09:46)
[2023-07-02] MEDS: POTASSIUM CHLORIDE 10 MEQ ER TABLET PO (09:46)
[2023-07-02] MEDS: EZETIMIBE 10 MG TABLET PO (09:46)
[2023-07-02] MEDS: LISINOPRIL 20 MG TABLET PO (09:46)
--- NOTE | 2023-07-02 10:20 | CM.NOTE ---
Rounds made with Dr. Smith, pt will discharge to home today. Dr. Smith discussed with RN to check oxygen level with activity prior to discharge.
--- NOTE | 2023-07-02 10:37 | CM.NOTE ---
2nd notice for Important Message From Medicare discussed with pt, pt denies questions or concerns.
--- NOTE | 2023-07-02 10:53 | SWNOTE1 ---
SW spoke to pt and she is aware she is going home and was happy. SW asked who was picking her up and she voiced it was her daughter. Pt called Brenda her daughter and she was on her way. Pt will be going home, [facility] will be coming to house today and plan is for her to sign on to [facility].
[2023-07-02 11:34] VITALS: O2SAT 94
--- NOTE | 2023-07-02 12:04 | SWNOTE1 ---
TORRES called [facility] and notified them of pt's discharge today. TORRES faxed over dc med rec and dc summary to [facility].
--- NOTE | 2023-07-05 15:43 | CM.NOTE ---
07/04- 1st attempt. No answer
--- NOTE | 2023-07-06 15:53 | CM.DCFOLLOWU ---
Person spoke with: Nancy How are you feeling? Weak but better How is your pain? No pain Did you understand your discharge instructions? Yes Do you have any questions about your discharge instructions? No I went home with Hospice, they have answered questions Were you given any prescriptions at discharge? Yes Were you able to get your prescriptions filled? Yes Do you understand how to take your medications as ordered? Yes Do you have any questions about your follow up appointment and do you plan to keep your follow up appointment? I cancelled appt d/t being with Hospice Is there anything else that you would like to discuss? No Questions/Comments/Concerns/Other:
== END 2023-07-02 11:38 | disposition home or self-care (01) | DRG 640 ==
LOC: ER 21:00 → ICU 22:43 → MS 07-01 11:56
PROVIDERS: Nurse Practitioner Acute Care; Physician Assistant; Admitting Provider Family Medicine; Emergency Provider Internal Medicine; PCP Nurse Practitioner; Visit Provider Family Medicine
DX: E87.1 Hypo-osmolality and hyponatremia (principal); I11.0 Hypertensive heart disease with heart failure; I50.41 Acute combined systolic (congestive) and diastolic (congestive) heart failure; N30.00 Acute cystitis without hematuria; I82.411 Acute embolism and thrombosis of right femoral vein; Z66 Do not resuscitate; R09.02 Hypoxemia; F33.42 Major depressive disorder, recurrent, in full remission; E11.9 Type 2 diabetes mellitus without complications; E87.6 Hypokalemia; N31.9 Neuromuscular dysfunction of bladder, unspecified; M89.661 Osteopathy after poliomyelitis, right lower leg; B91 Sequelae of poliomyelitis; Z96.0 Presence of urogenital implants; Z87.891 Personal history of nicotine dependence; Z79.82 Long term (current) use of aspirin; Z79.84 Long term (current) use of oral hypoglycemic drugs; Z79.899 Other long term (current) drug therapy; Z90.49 Acquired absence of other specified parts of digestive tract; Z90.710 Acquired absence of both cervix and uterus
CPT/HCPCS: 36415; 71045; 80053; 81001; 82570; 82800; 82948; 83605; 83735; 83880; 83935; 84295; 84300; 84443; 84484; 85025; 87086; 93005; 93308; 94640; 94761; 94799; 96361; 96365; 96366; 96367; 96372; 96375; 97110; 97163; 97165; 97530; 99285; J0456; Q3014

== ENCOUNTER 2023-07-27 19:23 | Outpatient (REF) | payer MEDICARE, OTHER, SELFPAY ==
[2023-07-29 11:02] LABS: Carbon Dioxide 26.8 mmol/L (21.0-32.0); Chloride 97 mmol/L (98-107); Estimated GFR (African America 39 (>=60); Estimated GFR (Non-African Ame 32 (>=60); Glucose 143 mg/dL (74-106); Potassium 5.8 mmol/L (3.5-5.1); Sodium 133 mmol/L (136-145)
[2023-07-29 11:03] LABS: Calcium 10.1 mg/dL (8.5-10.1)
== END 2023-07-27 19:24 | disposition home or self-care (01) ==
LOC: LAB 19:23
PROVIDERS: PCP Nurse Practitioner
DX: N31.9 Neuromuscular dysfunction of bladder, unspecified (principal); F33.42 Major depressive disorder, recurrent, in full remission; M89.661 Osteopathy after poliomyelitis, right lower leg; N30.00 Acute cystitis without hematuria; J96.00 Acute respiratory failure, unspecified whether with hypoxia or hypercapnia; I11.0 Hypertensive heart disease with heart failure; I50.41 Acute combined systolic (congestive) and diastolic (congestive) heart failure
CPT/HCPCS: 36415; 80048

== ENCOUNTER 2023-08-10 16:48 | Outpatient (REF) | payer MEDICARE, OTHER, SELFPAY ==
[2023-08-10 17:09] LABS: Basophils Percent Auto 0.3 % (0.2-2.0); Eosinophils Absolute Auto 0.1 10^3/uL (0.0-0.7); Eosinophils Percent Auto 0.8 % (0.9-7.0); Hematocrit 37.4 % (36.0-48.0); Hemoglobin 11.7 g/dL (12.0-16.0); Immature Granulocytes Abs Auto 0.07 10^3/uL (0.00-0.03); Immature Granulocytes Pct Auto 0.6 % (0.0-0.5); Lymphocytes Absolute Auto 3.1 10^3/uL (1.2-3.8); Mean Corpuscular HGB Conc 31.3 g/dL (29.9-35.2); Mean Corpuscular Hemoglobin 28.7 pg (26.7-34.0); Mean Corpuscular Volume 91.9 fL (81.0-99.0); Mean Platelet Volume 9.8 fL (9.5-13.5); Monocytes Absolute Auto 0.7 10^3/uL (0.3-0.8); Monocytes Percent Auto 6.6 % (1.7-12.0); Neutrophils Absolute Auto 6.8 10^3/uL (1.4-6.5); Neutrophils Percent Auto 62.7 % (43.0-75.0); Platelet Count 300 10^3/uL (150-450); Red Blood Count 4.07 10^6/uL (4.20-5.40); Red Cell Distribution Width 15.3 % (11.0-15.0); White Blood Count 10.8 10^3/uL (4.0-11.0)
[2023-08-10 17:41] LABS: Anion Gap 16.3; BUN Creatinine Ratio 28.1; Calcium 9.8 mg/dL (8.5-10.1); Carbon Dioxide 26.1 mmol/L (21.0-32.0); Chloride 99 mmol/L (98-107); Estimated GFR (African America 35 (>=60); Estimated GFR (Non-African Ame 29 (>=60); Glucose 251 mg/dL (74-106); Sodium 135 mmol/L (136-145)
[2023-08-10 19:00] LABS: Potassium 6.4 mmol/L (3.5-5.1)
== END 2023-08-10 16:49 | disposition home or self-care (01) ==
LOC: LAB 16:48
PROVIDERS: PCP Nurse Practitioner
DX: F33.42 Major depressive disorder, recurrent, in full remission (principal); I11.0 Hypertensive heart disease with heart failure; I50.41 Acute combined systolic (congestive) and diastolic (congestive) heart failure; N31.9 Neuromuscular dysfunction of bladder, unspecified; M89.661 Osteopathy after poliomyelitis, right lower leg; N30.00 Acute cystitis without hematuria; J96.00 Acute respiratory failure, unspecified whether with hypoxia or hypercapnia; I50.9 Heart failure, unspecified
CPT/HCPCS: 36415; 80048; 81003; 85025; 87086

== ENCOUNTER 2023-08-10 20:51 | Outpatient (REF) | payer MEDICARE, OTHER, SELFPAY ==
--- OUTSIDE RECORDS SUMMARY | 2023-08-10 21:13 | XMS_ITS | CCD ---
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 Name Role Phone Pipe Sanchez Attending Provider Kilo Chavez Primary Care Provider Kilo Chavez II Primary Care Provider [phone] Kilo Chavez II Unavailable MARU Chavez Primary [...] Provider MD Johann Dolan Attending Provider AICHHOLZ, EMERGENCY MANAGER FOZIA Admitting Unavailable AICHHOLZ, EMERGENCY MANAGER FOZIA Primary Care Unavailable AICHHOLZ, EMERGENCY MANAGER FOZIA Attending Unavailable AICHHOLZ, EMERGENCY MANAGER FOZIA Consulting Unavailable AICHHOLZ, EMERGENCY MANAGER FOZIA Admitting Unavailable AICHHOLZ, EMERGENCY MANAGER FOZIA Attending Unavailable AICHHOLZ, EMERGENCY MANAGER FOZIA Consulting Unavailable AICHHOLZ, EMERGENCY MANAGER FOZIA Primary Care Unavailable AICHHOLZ, EMERGENCY MANAGER FOZIA Primary Care Unavailable SHAIKH Kurt PRICE [...] Admitting Unavailable DR ERIC BERRY Unavailable AICHHOLZ, EMERGENCY MANAGER FOZIA Admitting Unavailable AICHHOLZ, EMERGENCY MANAGER FOZIA Attending Unavailable AICHHOLZ, EMERGENCY MANAGER FOZIA Consulting Unavailable AICHHOLZ, EMERGENCY MANAGER FOZIA Primary Care Unavailable AICHHOLZ, EMERGENCY MANAGER FOZIA Primary Care Unavailable AICHHOLZ, EMERGENCY MANAGER FOZIA Attending Unavailable AICHHOLZ, EMERGENCY MANAGER FOZIA Consulting Unavailable AICHHOLZ, EMERGENCY MANAGER FOZIA Admitting Unavailable DR ERIC BERRY Consulting Unavailable AICHHOLZ, EMERGENCY MANAGER FOZIA Primary Care Unavailable AICHHOLZ, EMERGENCY MANAGER FOZIA Consulting Unavailable AICHHOLZ, EMERGENCY MANAGER FOZIA Attending Unavailable AICHHOLZ, EMERGENCY MANAGER FOZIA Admitting Unavailable AICHHOLZ, EMERGENCY MANAGER FOZIA Admitting Unavailable AICHHOLZ, EMERGENCY MANAGER FOZIA Attending Unavailable AICHHOLZ, EMERGENCY MANAGER FOZIA Referring Unavailable AICHHOLZ, EMERGENCY MANAGER FOZIA Consulting Unavailable AICHHOLZ, EMERGENCY MANAGER FOZIA Primary Care Unavailable DR ERIC BERRY Consulting Unavailable AICHHOLZ, EMERGENCY MANAGER FOZIA Primary Care Unavailable AICHHOLZ, EMERGENCY MANAGER FOZIA Consulting Unavailable AICHHOLZ, EMERGENCY MANAGER FOZIA Attending Unavailable AICHHOLZ, EMERGENCY MANAGER FOZIA Admitting Unavailable AICHHOLZ, EMERGENCY MANAGER FOZIA Primary Care Unavailable AICHHOLZ, EMERGENCY MANAGER FOZIA Consulting Unavailable AICHHOLZ, EMERGENCY MANAGER FOZIA Attending Unavailable AICHHOLZ, EMERGENCY MANAGER FOZIA Admitting Unavailable AICHHOLZ, EMERGENCY MANAGER FOZIA Primary Care Unavailable ADDY MEHTA Attending Unavailable DR JOHANN DOLAN Consulting Unavailable ADDY MEHTA Admitting Unavailable AICHHOLZ, EMERGENCY MANAGER FOZIA Primary Care Unavailable AICHHOLZ, EMERGENCY MANAGER FOZIA Consulting Unavailable AICHHOLZ, EMERGENCY MANAGER FOZIA Attending Unavailable AICHHOLZ, EMERGENCY MANAGER FOZIA Admitting Unavailable AICHHOLZ, EMERGENCY MANAGER FOZIA Primary Care Unavailable AICHHOLZ, EMERGENCY MANAGER FOZIA Consulting Unavailable AICHHOLZ, EMERGENCY MANAGER FOZIA Attending Unavailable AICHHOLZ, EMERGENCY MANAGER FOZIA Admitting Unavailable AICHHOLZ, EMERGENCY MANAGER FOZIA Primary Care Unavailable AICHHOLZ, EMERGENCY MANAGER FOZIA Consulting Unavailable AICHHOLZ, EMERGENCY MANAGER FOZIA Attending Unavailable AICHHOLZ, EMERGENCY MANAGER FOZIA Admitting Unavailable DR ERIC BERRY Consulting Unavailable AICHHOLZ, EMERGENCY MANAGER FOZIA Primary Care Unavailable AICHHOLZ, EMERGENCY MANAGER FOZIA Consulting Unavailable AICHHOLZ, EMERGENCY MANAGER FOZIA Attending Unavailable AICHHOLZ, EMERGENCY MANAGER FOZIA Admitting Unavailable AICHHOLZ, EMERGENCY MANAGER FOZIA Primary Care Unavailable AICHHOLZ, EMERGENCY MANAGER FOZIA Attending Unavailable AICHHOLZ, EMERGENCY MANAGER FOZIA Consulting Unavailable AICHHOLZ, EMERGENCY MANAGER FOZIA Admitting Unavailable NO FAMILY, PHYSICIAN Primary Care Provider Unava ilable MD Pipe Sanchez Attending Provider [phone] [facility] Primary Care Provider [phone] Johann Dolan Admitting Unavailable NO FAMILY, PHYSICIAN [...] MEDELLIN Attending Unavailable AICHHOLZ, FOZIA Attending Unavailable JEFF MEDELLIN Attending Unavailable Allergies Allergy Classification Reported Allergen(s) Allergy Type Date of Onset Reaction(s) Facility (1 source) Adhesive agent Drug Allergy 9 Rash [facility] (13 sources) Aspirin; 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: [aspirin] Drug Allergy 9 GI Upset, Gastritis (disorder) [facility] (1 source) Penicillins Drug Allergy 9 Rash [facility] (12 sources) Adhesive Tape; 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: [Tape] Drug allergy Blister - unit of product usage (qualifier value) [facility] (12 sources) Penicillin; 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: [penicillin] Drug Allergy Cutaneous eruption (morphologic abnormality) [facility] (1 source) No Known Medication Allergies; 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: [No Known Medication Allergies] Propensity to adverse reactions (disorder) [facility] Repository NEGATED: Highlighted row has been ruled out! (1 source) Drug allergy [facility] NEGATED: Highlighted row has been ruled out! (1 source) Drug allergy [facility] NEGATED: Highlighted row has been ruled out! (1 source) Drug allergy [facility] NEGATED: Highlighted row has been ruled out! (1 source) Drug allergy [facility] NEGATED: Highlighted row has been ruled out! (1 source) Drug allergy [facility] NEGATED: Highlighted row has been ruled out! (1 source) Drug allergy [facility] NEGATED: Highlighted row has been ruled out! (1 source) Drug allergy [facility] NEGATED: Highlighted row has been ruled out! (1 source) Drug allergy [facility] NEGATED: Highlighted row has been ruled out! (1 source) Drug allergy [facility] NEGATED: Highlighted row has been ruled out! (1 source) Drug allergy [facility] [place] NEGATED: Highlighted row has been ruled out! (1 source) Drug allergy [facility] Medications Current Medications Medication Drug Class(es) Dates [...] exchange, # 6 tab(s), Refills(s) 0, Pharmacy: [facility], 165, cm, 08/07/22 11:07:00 EDT, Height/Length [...] Start: 07-01-2022 take 1 capsule by mo ut twice daily as needed for constipation docusate [...] discomfort, # 90 tab(s), Refills(s) 3, Pharmacy: [facility], 165, cm, 11/25/22 9:01:00 EDT, [...] 125mg, # 30 tab(s), Refills(s) 0, Pharmacy: [facility] Start Date: 02/06/19 Status: Ordered Start: [...] bedtime, # 180 tab(s), Refills(s) 1, Pharmacy: [facility] Start Date: 02/06/19 Status: [...] 08-04-2018 Chronic Other aftercare (3 sources) 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; 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: [Other long-term (current) drug therapy] Onset: 06-10-2022 Episodic Other bone disease and musculoskeletal deformities (11 sources) Osteopenia 10-11-2018 Episodic Other DAIRY CLERK infection and poliomyelitis (13 sources) Late effects [...] Onset: 05-05-2022 Episodic Other aftercare (1 source) 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 (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; 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: [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 HYPOGLYCEMIC DX] Onset: 01-21-2022 Episodic Other aftercare (1 source) prison (current) use of anticoagulants; 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: [HALF-WAY CURRNT USE ANTICOAGULANTS] Onset: 01-21-2022 Episodic Other [...] Clinical Noteon Retail - Clinical Note [id number]#1.00TIFF [facility] Ambulatory Visit Summaryon 0 05-11-2023 Ambulatory [...] 1:00 PM EST Where: [facility] Retail - Clinical Noteon Retail - Clinical Note [id number]#1.00TIFF [facility] Ambulatory Visit Summaryon 1 05-17-2022 Ambulatory [...] 1:00 PM EST Where: [facility] Retail - Clinical Noteon Retail - Clinical Note [id number]#1.00TIFF [facility] Ambulatory Visit Summaryon 1 Ambulatory Visit [...] 1:00 PM EST Where: [facility] Patient Educationon 11-26-19 Patient Education Obstetrics [...] these instructions at home: Medicines ? Take sfnw-ofk-rklkndu and prescription medicines only as told by [...] provider. Document Revised: 11/01/2020 Document Reviewed: 11/01/2020 [employer] Patient Education ? 2022 [employer] [facility] Urology Office/Clinic Noteon 11-25-2022 Urology Office/Clinic Note [...] urine, unspecified) Pt had Ribeiro placed at [facility] on 06/02/22. Cath placed on 07/01/22 PVR > 600cc after failed voiding trial Pt had Ribeiro changed on 06/11/2022 at [facility]. Pt has a tremor and does not feel like she can perform CIC See #1. -Cont monthly ribeiro exchanges. She will notify me if she would like SPT after bowel cleanout and CT pelvis 3. History of UTI (Z87.440: Personal history of urinary (tract) infections) Risk of recurrence given incomplete emptying. UTI (asymptomatic) 05/05/2022[facility] 06/07/2022[facility] - ribeiro exchange UCx 07/23/22 TB - >100,000 S. marcescens [...] performing a me (more content not included)... [facility] Comment on above: Result Comment: Elec tronically Signed By: David WELLS, Ivana Kirby\.br\Date and Time Signed: 11/25/22 18:15 EDT\.br\Electronically Co-Signed By: Mary Moore\.br\Date and Time Co-Signed: 11/25/22 10:06 EDT IntraOperative Documentson 0 11-09-2022 IntraOperative Documents [id number]#1.00CD:127 [facility] IntraOperative Documentson 0 10-27-2022 IntraOperative Documents [id number]#1.00CD:127 [facility] Consent for Procedure/Surger yon 10-26-2022 Consent for Procedure/Surgery [id number]#1.00CD:127 [facility] Consent for Treatmenton - Consent for Treatment [id number]#1.00CD:127 [facility] IntraOperative Documentson 0 10-26-2022 IntraOperative Documents [id number]#1.00CD:127 [facility] Coding Queryon 10-21-2022 Coding Query - [...] dx, unable to modify existing computer order [facility] Physician Orderon 10-21-2022 Physician Order [id number]#1.00CD:127 [facility] C Urineon 10-14-2022 Bacteria identified Cx [...] Locations R1: This test was performed at: [facility], [address] [place] [address], [id number]- , , [facility] Comment on above: Performed By: #### 2 [id number] ####[address] [place] [address] Consent for Treatmenton 10-03 Consent for Treatment [id number]#1.00CD:127 Normal [facility] Ambulatory Visit Summaryon 0 09-30-2022 Ambulatory Visit Summary JAMARI ELIZALDE :1940 Visit Date:09/30/2022 Ambulatory Visit Instructions Your Care Team Attending Physician - David WELLS, Ivana Kirby Primary Care Physician - FOZIA TOBAR CNP [...] cholesterol HTN - Hypertension Kidney stone Normal [facility] Glucose Glucometer (BldC) [M ass/Vol]Ordered By: Pipe Sanchez on 09-25-2022 Glucose [Mass/Vol] 169 mg/dL [facility] Comment on above: Random Glucose Refer ence Range is dependent on time and content of last meal. Glucose of more than 200 mg/dL in a nonstressed, ambulatory subject supports the diagnosis of Diabetes Mellitus. Glucose Poct Glucometerson 0 09-25-2022 Commemt1 Glu2: Cleaned Meter Normal [facility] Comment on above: Result Comment: PERF ORMED BY: [facility] [address] [place] [address] PATHOLOGIST FILM REPLACEMENT ORDERER LILLY LOTT M.D. Performed By: #### C K, CRP, CMP, CBC, ESR, TSH3 #### [facility] [address] [id number] [place] #### ALDOLASE #### [facility] , Glucose [Mass/Vol] 169 mg/dL Normal [facility] Comment on above: Result Comment: [place] Glucose Reference Range is dependent on time and content of last meal. Glucose of more than 200 mg/dL in a nonstressed, ambulatory subject supports the diagnosis of Diabetes Mellitus. Performed By: #### C K, CRP, CMP, CBC, ESR, TSH3 #### [facility] [address] [id number] [place] #### ALDOLASE #### [facility] , Alcides 09-25-2022 L ------- Specimen: [id number] Received: 09/25/22 Status: KATJA Yahaira Num: [id number] Spec Type: Surgical Subm Dr: Pipe Sanchez MD Tissues: A Duodenum - Biopsy (DUODENAL BX) Procedures: HE/2, Gross/Micro L4 Age/ Patient Sex Location Account Attending Physician Jamari Elizalde 82/F [id number] Pipe Sanchez MD SPEC NUM: [id number] RECD: 09/25/22 STATUS: KATJA ANDREW NUM: [id number] JOSE RAUL: 09/25/[address] [facility] DR: Pipe Sanchez MD ENTERED: 09/25/[address] [facility] [address]: PETE TYPE: Surgical DEPT: S [...] microscopic examination confirms the diagnosis. CPT Codes 79269 Specimen: [id number] Received: 09/25/22 Status: KATJA Andrew Num: [id number] Spec Type: Surgical Subm Dr: Pipe Sanchez MD Tissues: A Duodenum - Biopsy (DUODENAL BX) Procedures: HE/2, Gross/Micro L4 Patient: Jamari Elizalde [id number] (Continued) Signed (signature on file) Adore Kenyon MD 09/28/22 1057 Normal [facility] No Panel InformationOrdered By: Pipe Sanchez on 09-25-2022 Bedside Glucose Comment Glu2: cleaned meter [facility] CBC AUTO DIFFon 09-01-2022 BASO # 0.0 103/ul Normal 0.0-0.1 [facility] Comment on above: Performed By: #### L IPID, BMP, NA #### [facility] [address] [address] [address] Dilip Cartagena Basophils/100 WBC (Bld) 0.6 % Normal 0.2-2.0 [facility] Comment on above: Performed By: #### L IPID, BMP, NA #### [facility] [address] [address] [address] Dilip Cartagena EO # 0.3 103/ul Normal 0.0-0.7 [facility] Comment on above: Performed By: #### L IPID, BMP, NA #### [facility] [address] [place] [address] Dr. Dilip Cartagena Eosinophils/100 WBC (Bld) 3.9 % Normal 0.9-7.0 [facility] Comment on above: Performed By: #### L IPID, BMP, NA #### [facility] [address] [place] [address] Dr. Dilip Cartagena Erythrocyte distribution width (RBC) [Ratio] 14.1 % Normal 11.0-15.0 [facility] Comment on above: Performed By: #### L IPID, BMP, NA #### [facility] [address] [place] [address] Dr. Dilip Cartagena Hematocrit (Bld) [Volume fraction] 40.2 % Normal 36.0-48.0 [facility] Comment on above: Performed By: #### L IPID, BMP, NA #### [facility] [address] [place] [address] Dr. Dilip Cartagena Hemoglobin (Bld) [Mass/Vol] 13.5 g/dL Normal 12.0-16.0 [facility] Comment on above: Performed By: #### L IPID, BMP, NA #### [facility] [address] [place] [address] Dr. Dilip Cartagena IG # 0.03 10e3/ul Normal 0.00-0.03 [facility] Comment on above: Performed By: #### L IPID, BMP, NA #### [facility] [address] [place] [address] Dr. Dilip Cartagena IG % 0.4 % Normal 0.0-0.5 [facility] Comment on above: Performed By: #### L IPID, BMP, NA #### [facility] [address] [place] [address] Dr. Dilip Cartagena LYMPH # 2.4 103/ul Normal 1.2-3.8 [facility] Comment on above: Performed By: #### L IPID, BMP, NA #### [facility] [address] [place] [address] Dr. Dilip Cartagena Lymphocytes/100 WBC (Bld) 33.0 % Normal 20.5-60.0 [facility] Comment on above: Performed By: #### L IPID, BMP, NA #### [facility] [address] [place] [address] Dr. Dilip Cartagena MANUAL DIFF REQ NO Normal [facility] Comment on above: Performed By: #### L IPID, BMP, NA #### [facility] [address] [place] [address] Dr. Dilip Cartagena MCH (RBC) [Entitic mass] 31.1 pg Normal 26.7-34.0 [facility] Comment on above: Performed By: #### L IPID, BMP, NA #### [facility] [address] [place] [address] Dr. Dilip Cartagena MCHC (RBC) [Mass/Vol] 33.6 g/dL Normal 29.9-35.2 [facility] Comment on above: Performed By: #### L IPID, BMP, NA #### [facility] [address] [place] [address] Dr. Dilip Cartagena MCV (RBC) [Entitic vol] 92.6 fL Normal 81.0-99.0 [facility] Comment on above: Performed By: #### L IPID, BMP, NA #### [facility] [address] [place] [address] Dr. Dilip Cartagena MONO # 0.5 103/ul Normal 0.3-0.8 [facility] Comment on above: Performed By: #### L IPID, BMP, NA #### [facility] [address] [place] [address] Dr. Dilip Cartagena Monocytes/100 WBC (Bld) 6.9 % Normal 1.7-12.0 [facility] Comment on above: Performed By: #### L IPID, BMP, NA #### [facility] [address] [place] [address] Dr. Dilip Cartagena NEUT # 4.0 103/ul Normal 1.4-6.5 [facility] Comment on above: Performed By: #### L IPID, BMP, NA #### [facility] [address] [place] [address] Dr. Dilip Cartagena Neutrophils/100 WBC (Bld) 55.2 % Normal 43.0-75.0 [facility] Comment on above: Performed By: #### L IPID, BMP, NA #### [facility] [address] [place] [address] Dr. Dilip Cartagena Platelet mean volume (Bld) [Entitic vol] 7.9 fL Critically low 9.5-13.5 [facility] Comment on above: Performed By: #### L IPID BMP, NA #### [facility] [address] [place] [address] Dr. Dilip Cartagena PLT 391 103/ul Normal 150-450 [facility] Comment on above: Performed By: #### L IPID BMP, NA #### [facility] [address] [place] [address] Dr. Dilip Cartagena RBC 4.34 106/ul Normal 4.20-5.40 [facility] Comment on above: Performed By: #### L IPID BMP, NA #### [facility] [address] [place] [address] Dr. Dilip Cartagena WBC 7.3 103/ul Normal 4.0-11.0 [facility] Comment on above: Performed By: #### L IPID, BMP, NA #### [facility] [address] [place] [address] Dr. Dilip Cartagena FREE T3on 09-01-2022 FREE T3 3.18 pg/mlL Normal 2.18-3.98 [facility] Comment on above: Performed By: #### U RCX #### [facility] [address] [place] [address] Dr. Dilip Cartagena FREE T4on 09-01-2022 Free T4 [Mass/Vol] 1.96 ng/dL Critically high 0.76-1.46 [facility] Comment on above: Performed By: #### P OCGLUC #### [facility] [address] [place] [address] Dr. Dilip Cartagena GLYCOHEMOGLOBIN A1Con 2022 ADA RECOMMENDATION SEE BELOW Normal [facility] Comment on above: Result Comment: ADA RECOMMENDED LIMIT 4.0 - 6.0 ADA THERAPEUTIC TARGET < 7.0 ACTION SUGGESTED > 7.0 Performed By: #### U RCX #### [facility] [address] [place] [address] Dr. Dilip Cartagena Glucose [Mass/Vol] 114 mg/dL Normal [facility] Comment on above: Performed By: #### U RCX #### [facility] [address] [place] [address] Dr. Dilip Cartagena HbA1c (Bld) [Mass fraction] 5.6 % Normal 4.5-6.2 [facility] Comment on above: Performed By: #### U RCX #### [facility] [address] [place] [address] Dr. Dilip Cartagena MAGNESIUMon 09-01-2022 Magnesium [Mass/Vol] 2.4 mg/dL Normal 1.8-2.4 [facility] Comment on above: Performed By: #### U RCX #### [facility] [address] [place] [address] Dr. Dilip Cartagena PROF 14(COMP METB)on 023 Albumin [Mass/Vol] 4.0 g/dL Normal 3.4-5.0 [facility] Comment on above: Performed By: #### U RCX #### [facility] [address] [place] [address] Dr. Dilip Cartagena Albumin/Globulin [Mass ratio] 1.1 {ratio} Normal [facility] Comment on above: Performed By: #### U RCX #### [facility] [address] [place] [address] Dr. Dilip Cartagena ALP [Catalytic activity/Vol] 87 U/L Normal 46-116 [facility] Comment on above: Performed By: #### U RCX #### [facility] [address] [place] [address] Dr. Dilip Cartagena ALT [Catalytic activity/Vol] 24 U/L Normal 14-59 [facility] Comment on above: Performed By: #### U RCX #### [facility] [address] [place] [address] Dr. Dilip Cartagena Anion gap [Moles/Vol] 13.2 mmol/L Normal Th e [facility] Comment on above: Performed By: #### U RCX #### [facility] [address] [address] [address] Dilip Cartagena AST [Catalytic activity/Vol] 9 U/L Critically low 15-37 [facility] Comment on above: Performed By: #### U RCX #### [facility] [address] [place] [address] Dr. Dilip Cartagena Bilirubin [Mass/Vol] 0.5 mg/dL Normal 0.2-1.0 [facility] Comment on above: Performed By: #### U RCX #### [facility] [address] [place] [address] Dr. Dilip Cartagena Calcium [Mass/Vol] 9.5 mg/dL Normal 8.5-10.1 [facility] Comment on above: Performed By: #### U RCX #### [facility] [address] [place] [address] Dr. Dilip Cartagena Chloride [Moles/Vol] 94 mmol/L Critically low 98-107 [facility] Comment on above: Performed By: #### U RCX #### [facility] [address] [place] [address] Dr. Dilip Cartagena CO2 [Moles/Vol] 26.5 mmol/L Normal 21.0-32.0 [facility] Comment on above: Performed By: #### U RCX #### [facility] [address] [place] [address] Dr. Dilip Cartagena Creatinine [Mass/Vol] 0.94 mg/dL Normal 0.55-1.02 [facility] Comment on above: Performed By: #### U RCX #### [facility] [address] [place] [address] Dr. Dilip Cartagena EGFR-AF BERMUDIAN >60 Normal >=60 [facility] Comment on above: Performed By: #### U RCX #### [facility] [address] [address] [address] Dilip Cartagena EGFR-NON AF BERMUDIAN 57 mL/min/1.73m2 Critically low >=60 [facility] Comment on above: Performed By: #### U RCX #### [facility] [address] [address] [address] Dilip Cartagena Globulin (S) [Mass/Vol] 3.7 g/dL Normal [facility] Comment on above: Performed By: #### U RCX #### [facility] [address] [address] [address] Dilip Cartagena Glucose [Mass/Vol] 140 mg/dL Critically high 74-106 T [facility] Comment on above: Performed By: #### U RCX #### [facility] [address] [address] [address] Dilip Cartagena Potassium [Moles/Vol] 4.7 mmol/L Normal 3.5-5.1 [facility] Comment on above: Performed By: #### U RCX #### [facility] [address] [place] [address] Dr. Dilip Cartagena Protein [Mass/Vol] 7.7 g/dL Normal 6.4-8.2 [facility] Comment on above: Performed By: #### U RCX #### [facility] [address] [address] [address] Dilip Cartagena Sodium [Moles/Vol] 129 mmol/L Critically low 136-145 Th [facility] Comment on above: Performed By: #### U RCX #### [facility] [address] [address] [address] Dilip Cartagena Urea nitrogen [Mass/Vol] 16.0 mg/dL Normal 7.0-18.0 [facility] Comment on above: Performed By: #### U RCX #### [facility] [address] [address] [address] Dilip Cartagena Urea nitrogen/Creatinine [Mass ratio] 17.0 mg/mg Normal [facility] Comment on above: Performed By: #### U RCX #### [facility] [address] [address] [address] Dilip Cartagena TSHon 09-01-2022 TSH 1.087 uIU/mL Normal 0.358-3.74 0 [facility] Comment on above: Performed By: #### U RCX #### [facility] [id number] Dilip Cartagena Ambulatory Visit Summaryon 0 [...] cholesterol HTN - Hypertension Kidney stone Normal [facility] Nurse Consultation Noteon Nurse Consultation Note [...] in 1m w/PVR w/MARQUEZ or KML Normal [facility] Screenson 08-10-2022 Screens [id number]:127 Normal [facility] Patient Educationon 08-08-19 23 Patient Education [...] health care provider. General instructions ? Take bqnw-tbu-xcennod and prescription medicines only as told by [...] urine. (more content not included)... Normal [facility] Urology Office/Clinic Noteon 08-07-2022 Urology Office/Clinic [...] has ribeiro. Last cath change 07/27/22 by . Rediscussed cath plug for bladder retraining, SP [...] urine, unspecified) Pt had Ribeiro placed at [facility] on 06/02/22. Cath placed on 07/01/22 PVR > 600cc after failed voiding trial Pt had Ribeiro changed on 06/11/2022 at [facility]. Pt has a tremor and does not feel like she can perform CIC See #1. -Bowel regimen 3. UTI (urinary tract infection) (N39.0: Urinary tract infection, site not specified) Risks of recurrence given incomplete emptying. Pt states she just finished 14 day course antibiotic treatment for UTI. UCx 07/23/22 TBH - >100,000 S. marcescens [...] Oral, Once (more content not included)... Normal [facility] Comment on above: Result Comment: Elec tronically Signed By: David WELLS, Ivana Kirby\.br\Date and Time Signed: 08/07/22 13:46 EDT\.br\Electronically Co-Signed By: Lily Sood\.br\Date and Time Co-Signed: 08/07/22 11:45 EDT C reactive protein [Mass/vol ume] in Serum or PlasmaOrdered By: Johann Dolan on 07-30-2022 CRP [Mass/Vol] < 0.5 mg/dL 0.0-0.5 [facility] C-Reactive Proteinon 023 CRP [Mass/Vol] mg/L Normal 0.0-0.5 [facility] Comment on above: Result Comment: PERF ORMED BY: [place] [address] PATHOLOGIST FILM REPLACEMENT ORDERER LILLY LOTT M.D. Performed By: #### C K, CRP, CMP, CBC, ESR, TSH3 #### [facility] [address] [place] [address] #### ALDOLASE #### [facility] , Creatine Kinaseon 07-30-2022 CK [Catalytic activity/Vol] 344 U/L High [facility] Comment on above: Result Comment: PERF ORMED BY: [place] [address] PATHOLOGIST FILM REPLACEMENT ORDERER LILLY LOTT M.D. Performed By: #### S DIONNE YADAVID-19 KATELYN #### [address] Creatine kinase [Enzymatic a ctivity/volume] in Serum or PlasmaOrdered By: Johann Dolan on 07-30-2022 CK [Catalytic activity/Vol] 344 U/L [facility] Erythrocyte Sedimentation Ra yvonne 07-30-2022 ESR (Bld) [Velocity] 13 mm/h Normal 0-29 [facility] Comment on above: Result Comment: PERF ORMED BY: [place] [address] PATHOLOGIST FILM REPLACEMENT ORDERER LILLY LOTT M.D. Performed By: #### S VICENTA COVID-19 KATELYN #### [facility] [address] [place] [address] Erythrocyte sedimentation ra te by Photometric methodOrdered By: Johann Dolan on 07-30-2022 ESR Photometric method (Bld) [Velocity] 13 mm/hr 0-29 [facility] Ionized Calciumon 07-30-2022 Ionized Calcium 4.9 mg/dL Normal 4.5-5.6 [facility] Comment on above: Result Comment: Perf ormed at: - [facility] [id number] Demand Planning Manager: Reggie Lazcano PhD, Phone: [phone] PERFORMED BY: [place] [address] PATHOLOGIST FILM REPLACEMENT ORDERER LILLY LOTT M.D. Performed By: #### C K, CRP, CMP, CBC, ESR, TSH3 #### [facility] [address] [place] [address] #### ALDOLASE #### [facility] , Parathyrin.intact [Mass/volu me] in Serum or PlasmaOrdered By: Johann Dolan on 07-30-2022 Parathyrin.intact [Mass/Vol] 34.7 pg/mL [facility] Parathyroid Hormone Intacton 07-30-2022 Parathyroid Hormone Intact 34.7 pg/mL Normal [facility] Comment on above: Result Comment: PERF ORMED BY: [place] [address] PATHOLOGIST FILM REPLACEMENT ORDERER LILLY LOTT M.D. Performed By: #### S LAURA YADAV #### [address] Parathyroid Hormone Related Pron 07-30-2022 Parathyroid Hormone Related Pr <2.0 Normal . [facility] Comment on above: Result Comment: This test [...] discordant, please contact the laboratory. Performed at: [facility] [address] [place] [id number] Demand Planning Manager: Pawel Fong MD, Phone: [phone] Performed By: #### C K, CRP, CMP, CBC, ESR, TSH3 #### [facility] [address] #### ALDOLASE #### [facility] , Serum ionized calcium measur ement using ion specific electrode (mass/volume)Ordered By: Johann Dolan on 07-30-2022 Calcium.ionized ISE [Mass/Vol] 4.9 mg/dL 4.5-5.6 [facility] Comment on above: Performed at: CB [facility] [address] [id number] Director: Reggie Lazcano PhD, Phone: [phone] Serum or plasma parathyroid hormone related peptide (PTHrP) measurement (moles/volumeOrdered By: Johann Dolan on 07-30-2022 Parathyrin related protein [Moles/Vol] <2.0 pmol/L . [facility] Comment on above: This test was develo [...] contact the laboratory.Performed at: ES - [id number] [place], [place] [id number] Director: Pawel Fong MD, Phone: [phone] Lab Reportson 07-29-2022 Lab Reports [id number]:127 Normal [facility] CULTURE URINEon 07-28-2022 CULTURE URINE Isolate [...] F Levofloxacin 0.25 S F Normal [facility] Comment on above: Performed By: #### U RCX #### [facility] [address] [place] [address] Dr. Dilip Cartagena UA RANDOM W/MICROSCOPICon BACTERIA LARGE Abnormal NONE SEEN [facility] Comment on above: Performed By: #### U RCX #### [facility] [address] [place] [address] Dr. Dilip Cartagena Bilirubin Ql (U) Negative Normal NEGATIVE [facility] Comment on above: Performed By: #### U RCX #### [facility] [address] [place] [address] Dr. Dilip Cartagena CA OX CRYSTALS FEW Normal [facility] Comment on above: Performed By: #### U RCX #### [facility] [address] [place] [address] Dr. Dilip Cartagena CAST NONE SEEN Normal NONE SEEN [facility] Comment on above: Performed By: #### U RCX #### [facility] [address] [place] [address] Dr. Dilip Cartagena Clarity (U) CLEAR Normal CLEAR [facility] Comment on above: Performed By: #### U RCX #### [facility] [address] [place] [address] Dr. Dilip Cartagena Color (U) LT. YELLOW Normal YELLOW [facility] Comment on above: Performed By: #### U RCX #### [facility] [address] [place] [address] Dr. Dilip Cartagena Crystals LM Nom (Urine sed) SEEN Abnormal NONE SEEN [facility] Comment on above: Performed By: #### U RCX #### [facility] [address] [address] [address] Dilip Cartagena Epithelial cells LM Ql (Urine sed) FEW Abnormal NONE SEEN /RARE [facility] Comment on above: Performed By: #### U RCX #### [facility] [address] [place] [address] Dr. Dilip Cartagena Glucose Ql (U) Negative Normal NEGATIVE [facility] Comment on above: Performed By: #### U RCX #### [facility] [address] [address] [address] Dilip Cartagena Hemoglobin Ql (U) SMALL Abnormal NEGATIVE [facility] Comment on above: Performed By: #### U RCX #### [facility] [address] [place] [address] Dr. Dilip Cartagena Ketones Ql (U) Negative Normal NEGATIVE [facility] Comment on above: Performed By: #### U RCX #### [facility] [address] [place] [address] Dr. Dilip Cartagena LEUKOCYTES LARGE Abnormal NEGATIVE [facility] Comment on above: Performed By: #### U RCX #### [facility] [address] [place] [address] Dr. Dilip Cartagena MUCOUS NONE SEEN Normal NONE SEEN [facility] Comment on above: Performed By: #### U RCX #### [facility] [address] [place] [address] Dr. Dilip Cartagena Nitrite Ql (U) Positive Abnormal NEGATIVE [facility] Comment on above: Performed By: #### U RCX #### [facility] [address] [place] [address] Dr. Dilip Cartagena pH (U) 5.5 [pH] Normal 5-9 [facility] Comment on above: Performed By: #### U RCX #### [facility] [address] [place] [address] Dr. Dilip Cartagena RBC 0-2 Normal 0-2 [facility] Comment on above: Performed By: #### U RCX #### [facility] [address] [place] [address] Dr. Dilip Cartagena SPEC GRAVITY 1.020 Normal 1.005-<=1. 025 [facility] Comment on above: Performed By: #### U RCX #### [facility] [address] [address] [address] Dilip Cartagean UA PROTEIN 30 mg/dl Abnormal NEGATIVE/ TRACE [facility] Comment on above: Performed By: #### U RCX #### [facility] [address] [address] [address] Dilip Cartagena Urobilinogen Qn (U) 0.2 {Hallie'U}/dL Normal 0.2 - 1. 0 [facility] Comment on above: Performed By: #### U RCX #### [facility] [address] [place] [address] Dr. Dilip Cartagena WBC 20-50 Abnormal NONE SEEN [facility] Comment on above: Performed By: #### U RCX #### [facility] [address] [place] [address] Dr. Dilip Cartagena Ambulatory Visit Summaryon 0 [...] WELLS, JACKY Barrera, URO When: Where: [address], [place] [address] [phone] Medications What How Much When Why Instructions [...] This condit (more content not included)... Normal [facility] Patient Educationon 07-16-19 Patient Education Urology [...] health care provider. General instructions ? Take myjt-esl-sqokrrq and prescription medicines only as told by [...] Chills. ? (more content not included)... Normal [facility] Urology Office/Clinic Noteon 07-15-2022 Urology Office/Clinic Note Chief Complaint 2 week follow up HPI Staff Pt currently has a cath was replaced at last visit on 07/01/22. 2wk PVR following ribeiro removal on 07/01/22. Catheter inserted 06/02/22 @ [facility] due to Urinary retention/NGB. Additional DX:Adrenal Nodule, [...] 600cc after failed voiding trial Pt had Ribeior placed at [facility] on 06/02/2022 Pt had Ribeiro changed on 06/11/2022 at [facility] Pt has a tremor and does [...] on CT Scan done on 06/02/2022 at [facility] Pt states that she has known about it for years, states it is stable. Declined metabolic workup at this time 4. UTI (urinary tract infection) (N39.0: Urinary tract infection, site not specified) UTI (asymptomatic) 05/05/2022-[place] 06/07/2022-[facility] - ribeiro exchange Discussed risks of recurrence given incomplete emptying, denies complicated UTIs Follow-up With When Contact Information David WELLS, Ivana Kirby, URL, URO [address], [place] [phone] Additional Instructions: Pt will f/u in 1 [...] BID aspirin (more content not included)... Normal [facility] Comment on above: Result Comment: Elec [...] 1:00 PM EDT Where: [facility] Ambulatory Visit Summary JAMARI ELIZALDE :1940 Visit [...] 1:00 PM EDT Where: [facility] Patient Educationon 07-02-19 23 Patient Education Urology [...] health care provider. General instructions ? Take sijd-mkm-spelkqy and prescription medicines only as told by [...] Chills. ? (more content not included)... Normal [facility] Screenson 07-01-2022 Screens [id number]:127 Normal [facility] PTH INTACTon 06-20-2022 PTH, Intact 28 pg/mL Normal 15-65 [facility] Comment on above: Performed By: #### L IPID BMP, NA #### [facility] [address] [address] [address] Dilip Cartagena GGTon 06-19-2022 Gamma glutamyl transferase [Catalytic activity/Vol] 22 U/L Normal 8-55 [facility] Comment on above: Performed By: #### U RCX #### [facility] [address] [place] [address] Dr. Dilip Cartagena LIPID PROFILEon 06-19-2022 CHOL-HDL RATIO NORM SEE BELOW Normal [facility] Comment on above: Result Comment: 3.3 - 4.4 LOW RISK 4.4 - 7.1 AVERAGE RISK 7.1 - 11.0 MODERATE RISK >11.0 HIGH RISK Performed By: #### L IPID BMP, NA #### [facility] [address] [place] [address] Dr. Dilip Cartagena Cholesterol [Mass/Vol] 163 mg/dL Normal <=200 Th [facility] Comment on above: Performed By: #### L IPID BMP, NA #### [facility] [address] [place] [address] Dr. Dilip Cartagena Cholesterol in HDL [Mass/Vol] 46 mg/dL Normal 40-60 [facility] Comment on above: Performed By: #### L IPID, BMP, NA #### [facility] [address] [place] [address] Dr. Dilip Cartagena Cholesterol in LDL [Mass/Vol] 101.6 mg/dL Normal [facility] Comment on above: Performed By: #### L IPID, BMP, NA #### [facility] [address] [place] [address] Dr. Dilip Cartagena Cholesterol.total/Chol esterol in HDL [Mass ratio] 3.5 {ratio} Normal [facility] Comment on above: Performed By: #### L IPID, BMP, NA #### [facility] [address] [address] [address] Dilip Cartagena HDL NORMAL > or = 60 mg/dl - LO W CARDIOVASCULAR RISK <40 mg/dl - HIGH CARDIOVASCULAR RISK Normal [facility] Comment on above: Performed By: #### L IPID, BMP, NA #### [facility] [address] [address] [address] Dilip Cartagena LDL CALC NORMAL SEE BELOW Normal [facility] Comment on above: Result Comment: <100 mg/dl OPTIMAL 100 - 129 mg/dl NEAR OR ABOVE OPTIMAL 130 - 159 mg/dl BORDERLINE HIGH 160 - 189 mg/dl HIGH >190 mg/dl VERY HIGH Performed By: #### L IPID, BMP, NA #### [facility] [address] [place] [address] Dr. Dilip Cartagena Triglyceride [Mass/Vol] 77 mg/dL Normal <=150 [facility] Comment on above: Performed By: #### L IPID, BMP, NA #### [facility] [address] [place] [address] Dr. Dilip Cartagena VLDL CALC 15.4 mg/dL Normal [facility] Comment on above: Performed By: #### L IPID, BMP, NA #### [facility] [address] [place] [address] Dr. Dilip Cartagena PROF CHEM 8 (BAS METB)on Anion gap [Moles/Vol] 17.9 mmol/L Normal [facility] Comment on above: Performed By: #### L IPID, BMP, NA #### [facility] [address] [place] [address] Dr. Dilip Cartagena Calcium [Mass/Vol] 9.0 mg/dL Normal 8.5-10.1 [facility] Comment on above: Performed By: #### L IPID, BMP, NA #### [facility] [address] [place] [address] Dr. Dilip Cartagena Performed By: #### U RCX #### [facility] [address] [address] [address] Dilip Cartagena Chloride [Moles/Vol] 98 mmol/L Normal 98-107 [facility] Comment on above: Performed By: #### L IPID, BMP, NA #### [facility] [address] [place] [address] Dr. Dilip Cartagena CO2 [Moles/Vol] 21.9 mmol/L Normal 21.0-32.0 [facility] Comment on above: Performed By: #### L IPID, BMP, NA #### [facility] [address] [place] [address] Dr. Dilip Cartagena Creatinine [Mass/Vol] 0.68 mg/dL Normal 0.55-1.02 [facility] Comment on above: Performed By: #### L IPID, BMP, NA #### [facility] [address] [place] [address] Dr. Dilip Cartagena EGFR-AF BERMUDIAN >60 Normal >=60 [facility] Comment on above: Performed By: #### L IPID, BMP, NA #### [facility] [address] [place] [address] Dr. Dilip Cartagena EGFR-NON AF BERMUDIAN >60 Normal >=60 [facility] Comment on above: Performed By: #### L IPID, BMP, NA #### [facility] [address] [place] [address] Dr. Dilip Cartagena Glucose [Mass/Vol] 114 mg/dL Critically high 74-106 [facility] Comment on above: Performed By: #### L IPID, BMP, NA #### [facility] [address] [place] [address] Dr. Dilip Cartagena Potassium [Moles/Vol] 4.8 mmol/L Normal 3.5-5.1 [facility] Comment on above: Performed By: #### L IPID, BMP, NA #### [facility] [address] [place] [address] Dr. Dilip Cartagena Sodium [Moles/Vol] 133 mmol/L Critically low 136-145 Th [facility] Comment on above: Performed By: #### L IPID, BMP, NA #### [facility] [address] [place], [place] [address] Dr. Dilip Cartagena Urea nitrogen [Mass/Vol] 17.0 mg/dL Normal 7.0-18.0 [facility] Comment on above: Performed By: #### L IPID, BMP, NA #### [facility] [address] [id number] Dilip Cartagena Urea nitrogen/Creatinine [Mass ratio] 25.0 mg/mg Normal [facility] Comment on above: Performed By: #### L IPID, BMP, NA #### [facility] [address] [address] [address] Dilip Cartagena NA (Sodium)on 06-15-2022 Sodium [Moles/Vol] 130 mmol/L Low 135-144 [facility] Comment on above: Performed By: #### N A #### [facility] [address] [place] [address] Demand Planning Manager: Loretta Davis MD Sodiumon 06-15-2022 Interpretation and review of laboratory results Abnormal [facility] Sodium [Moles/Vol] 130 mmol/L Low 135 - 144 mmol/L [facility] NA (Sodium)on 06-12-2022 Sodium [Moles/Vol] 123 mmol/L Low 135-144 [facility] Comment on above: Performed By: #### N A #### [facility] [address] [place] [address] Demand Planning Manager: Loretta Davis MD Sodiumon 06-12-2022 Interpretation and review of laboratory results Abnormal [facility] Sodium [Moles/Vol] 123 mmol/L Low 135 - 144 mmol/L [facility] Cult,Urineon 06-10-2022 Cult,Urine Specimen Description .CLEAN CATCH URINE Culture ENTEROCOCCUS FAECALIS >[id number] CFU/ML Report Status FINAL 06/10/2022 SUSCEPTIBILITY Organism ENTEROCOCCUS FAECALIS Method MARISOL Ampicillin <=2 SUSCEPTIBLE Ciprofloxacin 1 SUSCEPTIBLE Levofloxacin 1 SUSCEPTIBLE Nitrofurantoin <=16 SUSCEPTIBLE Tetracycline <=1 SUSCEPTIBLE Vancomycin 1 SUSCEPTIBLE Susceptible [facility] Comment on above: Performed By: #### U RC #### [facility] [address] [place], [place] [id number] Demand Planning Manager: Lemuel Chan MD [facility] [address] [place] [address] Demand Planning Manager: Loretta Davis MD Lipid Panelon 06-10-2022 Cholesterol [Mass/Vol] 190 mg/dL NINF - 200 mg/dL [facility] Comment on above: Cholesterol Guidelines: <200 Desirable 200-240 Borderline >240 Undesirable Cholesterol in HDL [Mass/Vol] 51 mg/dL 40 - PINF mg/dL [facility] Comment on above: HDL Guidelines: <40 Undesirable 40-59 Borderline >59 Desirable Cholesterol in LDL [Mass/Vol] 103 mg/dL 0 - 130 mg/dL [facility] Comment on above: LDL Guidelines: <100 Desirable 100-129 Near to/above Desirable 130-159 Borderline >159 Undesirable Direct (measured) LDL and calculated LDL are not interchangeable tests. Cholesterol.total/Chol esterol in HDL [Mass ratio] 3.7 {ratio} NINF - 5 [facility] Interpretation and review of laboratory results Abnormal [facility] Triglyceride [Mass/Vol] 179 mg/dL High NINF - 150 mg/dL [facility] Comment on above: Triglyceride Guidelines: <150 Desirable 150-199 Borderline 200-499 High >499 Very high Based on AHA Guidelines for fasting triglyceride, January 2012. [facility] Lipid Profileon 06-10-2022 Cholesterol [Mass/Vol] 190 mg/dL Normal <200 [facility] Comment on above: Result Comment: Cholesterol Guidelines: <200 Desirable 200-240 Borderline >240 Undesirable Performed By: #### T SH #### [facility] [address] [place] [address] Demand Planning Manager: Loretta Davis MD #### LIPR #### [facility] [address] [place], [place] [id number] Demand Planning Manager: Lemuel Chan MD Cholesterol in HDL [Mass/Vol] 51 mg/dL Normal >40 [facility] Comment on above: Result Comment: HDL Guidelines: <40 Undesirable 40-59 Borderline >59 Desirable Performed By: #### T SH #### [facility] [address] [place] [id number] Demand Planning Manager: Loretta Davis MD #### LIPR #### [address] [id number] Demand Planning Manager: Lemuel Chan MD Cholesterol in LDL [Mass/Vol] 103 mg/dL Normal 0-130 [facility] Comment on above: Result Comment: LDL Guidelines: <100 Desirable 100-129 Near to/above Desirable 130-159 Borderline >159 Undesirable Direct (measured) LDL and calculated LDL are not interchangeable tests. Performed By: #### T SH #### [facility] [address] [place] [phone] Demand Planning Manager: Loretta Davis MD #### LIPR #### [address] [id number] Demand Planning Manager: Lemuel Chan MD Cholesterol.total/Chol esterol in HDL [Mass ratio] 3.7 {ratio} Normal <5 [facility] Comment on above: Performed By: #### T SH #### [facility] [address] [place] [phone] Demand Planning Manager: Loretta Davis MD #### LIPR #### [address] [id number] Demand Planning Manager: Lemuel Chan MD Triglyceride [Mass/Vol] 179 mg/dL High <150 [facility] Comment on above: Result Comment: Triglyceride Guidelines: <150 Desirable 150-199 Borderline 200-499 High >499 Very high Based on AHA Guidelines for fasting triglyceride, January 2012. Performed By: #### T SH #### [facility] [address] [place] [address] Demand Planning Manager: Loretta Davis MD #### LIPR #### [facility] [address] [place], [place] [phone] Demand Planning Manager: Lemuel Chan MD TSHon 06-10-2022 TSH Qn 1.20 m[IU]/L [facility] Thyroid Stim. Horm.on 2022 Thyroid Stim. Horm. 1.20 uIU/mL Normal 0.30-5.00 [facility] Comment on above: Performed By: #### T SH #### [facility] [address] [place] [address] [place] [address] Demand Planning Manager: Loretta Davis MD #### LIPR #### [facility] [employer] [address], [place] [phone] Demand Planning Manager: Lemuel Chan MD CBCon 06-09-2022 Erythrocyte distribution width (RBC) [Ratio] 13.1 % Normal 11.8-14.4 [facility] Comment on above: Performed By: #### C BC, CP #### [address] [place] [address] Demand Planning Manager: Loretta Davis MD Hematocrit (Bld) [Volume fraction] 37.0 % Normal 36.3-47.1 [facility] Comment on above: Performed By: #### C BC, CP #### [address] [place], [place] [phone] Demand Planning Manager: Loretta Davis MD Hemoglobin (Bld) [Mass/Vol] 12.6 g/dL Normal 11.9-15.1 [facility] Comment on above: Performed By: #### C BC, CP #### [address] [place] [address] Demand Planning Manager: Loretta Davis MD MCH (RBC) [Entitic mass] 31.7 pg Normal 25.2-33.5 [facility] Comment on above: Performed By: #### C BC, CP #### [facility] [address] [place], [place] [phone] Demand Planning Manager: Loretta Davis MD MCHC (RBC) [Mass/Vol] 34.1 g/dL Normal 28.4-34.8 [facility] Comment on above: Performed By: #### C BC, CP #### [address] [place], [place] [phone] Demand Planning Manager: Loretta Davis MD MCV (RBC) [Entitic vol] 93.0 fL Normal 82.6-102.9 [facility] Comment on above: Performed By: #### C BC, CP #### [address] [place], [place] [phone] Demand Planning Manager: Loretta Davis MD NRBC Automated 0.0 per 100 WBC Normal 0.0 [facility] Comment on above: Performed By: #### C BC, CP #### [address] [place], [place] [phone] Demand Planning Manager: Loretta Davis MD Platelet mean volume (Bld) [Entitic vol] 8.4 fL Normal 8.1-13.5 [facility] Comment on above: Performed By: #### C BC, CP #### [address] [place], [place] [phone] Demand Planning Manager: Loretta Davis MD Platelets (Bld) [#/Vol] 387 10*3/uL Normal 138-453 [facility] Comment on above: Performed By: #### C BC, CP #### [address] [place] [address] Demand Planning Manager: Loretta Davis MD RBC (Bld) [#/Vol] 3.98 10*6/uL Normal 3.95-5.11 [facility] Comment on above: Performed By: #### C BC, CP #### [address] [place] [address] Demand Planning Manager: Loretta Davis MD WBC (Bld) [#/Vol] 9.6 10*3/uL Normal 3.5-11.3 [facility] Comment on above: Performed By: #### C VU, CP #### [facility] [address] [place], [place] [phone] Demand Planning Manager: Loretta Davis MD Hematocrit (Bld) [Volume fraction] 37.0 % 36.3 - 47.1 % [facility] Hemoglobin (Bld) [Mass/Vol] 12.6 g/dL 11.9 - 15.1 g/dL [facility] MCH (RBC) [Entitic mass] 31.7 pg 25.2 - 33.5 pg [facility] MCHC (RBC) [Mass/Vol] 34.1 g/dL 28.4 - 34.8 g/dL [facility] MCV (RBC) [Entitic vol] 93.0 fL 82.6 - 102.9 fL [facility] NRBC Automated 0.0 0.0 per 100 WBC [facility] Platelet distribution width (Bld) [Ratio] 13.1 % 11.8 - 14.4 % [facility] Platelet mean volume (Bld) [Entitic vol] 8.4 fL 8.1 - 13.5 fL [facility] Platelets (Bld) [#/Vol] 387 10*3/uL [facility] RBC (Bld) [#/Vol] 3.98 10*6/uL 3.95 - 5.11 m/uL [facility] WBC (Bld) [#/Vol] 9.6 10*3/uL [facility] Comp Metabolic Profon 2022 Albumin [Mass/Vol] 4.1 g/dL Normal 3.5-5.2 [facility] Comment on above: Performed By: #### C VU, CP #### [facility] [address] [place] [address] Demand Planning Manager: Loretta Davis MD Albumin/Glob Ratio 1.6 Normal 1.0-2.5 [facility] Comment on above: Performed By: #### C BC, CP #### [facility] [address] [place], [place] [phone] Demand Planning Manager: Loretta Davis MD Alkaline Phos 68 U/L Normal 35-104 [facility] Comment on above: Performed By: #### C BC, CP #### [facility] [address] [place], [place] [phone] Demand Planning Manager: Loretta Davis MD ALT [Catalytic activity/Vol] 27 U/L Normal 5-33 [facility] Comment on above: Performed By: #### C BC, CP #### [facility] [address] [place], [place] [phone] Demand Planning Manager: Loretta Davis MD Anion gap [Moles/Vol] 13 mmol/L Normal 9-17 [facility] Comment on above: Performed By: #### C BC, CP #### [address] [place], [place] [phone] Demand Planning Manager: Loretta Davis MD AST [Catalytic activity/Vol] 19 U/L Normal <32 [facility] Comment on above: Performed By: #### C VU, CP #### [facility] [address] [place], [place] [phone] Demand Planning Manager: Loretta Davis MD Bilirubin [Mass/Vol] 0.2 mg/dL Low 0.3-1.2 [facility] Comment on above: Performed By: #### C BC, CP #### [facility] [address] [place], [place] [phone] Demand Planning Manager: Loretta Davis MD BUN/CRE Ratio 31 High 9-20 [facility] Comment on above: Performed By: #### C BC, CP #### [facility] [address] [place], [place] [phone] Demand Planning Manager: Loretta Davis MD Calcium [Mass/Vol] 9.6 mg/dL Normal 8.6-10.4 [facility] Comment on above: Performed By: #### C BC, CP #### [facility] [address] [place], [place] [phone] Demand Planning Manager: Loretta Davis MD Chloride [Moles/Vol] 91 mmol/L Low 98-107 [facility] Comment on above: Performed By: #### C BC, CP #### [facility] [address] [place] [address] Demand Planning Manager: Loretta Davis MD CO2 [Moles/Vol] 26 mmol/L Normal 20-31 [facility] Comment on above: Performed By: #### C VU, CP #### [facility] [address] [place], [place] [phone] Demand Planning Manager: Loretta Davis MD Creatinine [Mass/Vol] 0.65 mg/dL Normal 0.50-0.90 [facility] Comment on above: Performed By: #### C VU, CP #### [address] [place] [address] Demand Planning Manager: Loretta Davis MD GFR/1.73 sq M.predicted among non-blacks MDRD (S/P/Bld) [Vol rate/Area] mL/min/{1.73_m2} Normal >60 [facility] Comment on above: Result Comment: These results [...] Performed By: #### C BC, CP #### [facility] [address] [place] [address] Demand Planning Manager: Loretta Davis MD Glucose [Mass/Vol] 125 mg/dL High 70-99 [facility] Comment on above: Performed By: #### C VU, CP #### [facility] [address] [place], [place] [phone] Demand Planning Manager: Loretta Davis MD Potassium [Moles/Vol] 4.3 mmol/L Normal 3.7-5.3 [facility] Comment on above: Performed By: #### C VU, CP #### [facility] [address] [place], [place] [phone] Demand Planning Manager: Loretta Davis MD Protein [Mass/Vol] 6.7 g/dL Normal 6.4-8.3 [facility] Comment on above: Performed By: #### C VU, CP #### [facility] [address] [place], [place] [phone] Demand Planning Manager: Loretta Davis MD Sodium [Moles/Vol] 130 mmol/L Low 135-144 [facility] Comment on above: Performed By: #### C VU, CP #### [facility] [address] [place] [address] Dr. [place], [place] [phone] Demand Planning Manager: Loretta Davis MD Urea nitrogen [Mass/Vol] 20 mg/dL Normal 8-23 [facility] Comment on above: Performed By: #### C VU, CP #### [facility] [address] [place], [place] [phone] Demand Planning Manager: Loretta Davis MD Comprehensive Metabolic Pane alcides 06-09-2022 Albumin [Mass/Vol] 4.1 g/dL 3.5 - 5.2 g/dL [facility] Albumin/Globulin [Mass ratio] 1.6 {ratio} 1.0 - 2.5 [facility] ALP [Catalytic activity/Vol] 68 U/L 35 - 104 U/L [facility] ALT [Catalytic activity/Vol] 27 U/L 5 - 33 U/L [facility] Anion gap [Moles/Vol] 13 mmol/L 9 - 17 mmol/L [facility] AST [Catalytic activity/Vol] 19 U/L NINF - 32 U/L [facility] Bilirubin [Mass/Vol] 0.2 mg/dL Low 0.3 - 1 .2 mg/dL [facility] Calcium [Mass/Vol] 9.6 mg/dL 8.6 - 10. 4 mg/dL [facility] Chloride [Moles/Vol] 91 mmol/L Low 98 - 10 7 mmol/L [facility] CO2 [Moles/Vol] 26 mmol/L 20 - 31 mmol/L [facility] Creatinine [Mass/Vol] 0.65 mg/dL 0.50 - 0.90 mg/dL [facility] GFR/1.73 sq M.predicted MDRD (S/P/Bld) [Vol rate/Area] - PINF [facility] Comment on above: These results are [...] 125 mg/dL High 70 - 99 mg/dL [facility] Interpretation and review of laboratory results Abnormal [facility] Potassium [Moles/Vol] 4.3 mmol/L 3.7 - 5.3 mmol/L [facility] Protein [Mass/Vol] 6.7 g/dL 6.4 - 8.3 g/dL [facility] Sodium [Moles/Vol] 130 mmol/L Low 135 - 144 mmol/L [facility] Urea nitrogen [Mass/Vol] 20 mg/dL 8 - 23 mg/dL [facility] Urea nitrogen/Creatinine (Bld) [Mass ratio] 31 High 9 - 20 [facility] Microscopic Urinalysison Bacteria, UA 2+ Abnormal None [facility] Epithelial Cells UA 2 TO 5 [facility] Interpretation and review of laboratory results Abnormal [facility] Mucus, UA 1+ Abnormal None [facility] RBC clumps Auto (Urine sed) [#/Area] 10 TO 20 [facility] WBC, UA 10 TO 20 [facility] Urinalysison 06-07-2022 Bilirubin Urine Negative NEGATIVE [facility] Color, UA Yellow Yellow [facility] Glucose Auto test strip (U) [Mass/Vol] Negative NEGATIVE [facility] Interpretation and review of laboratory results Abnormal [facility] Ketones (U) [Mass/Vol] Negative NEGATIVE [facility] Leukocyte esterase Auto test strip Ql (U) SMALL Abnormal NEGATIVE [facility] Nitrite Auto test strip Ql (U) Negative NEGATIVE [facility] Protein (U) [Mass/Vol] 6.0 mg/dL 5.0 - 9.0 [facility] Protein (U) [Mass/Vol] 2+ Abnormal NEGATIVE [facility] Specific [place], UA 1.025 High 1.010 - 1.020 [facility] Turbidity UA Clear Clear [facility] Urine Hgb 2+ Abnormal NEGATIVE [facility] Urobilinogen, Urine Normal Normal [facility] Urinalysis, Routineon 2022 Bilirubin, SemiQt,Ur Negative Normal NEG [facility] Comment on above: Performed By: #### U MICAO, UA #### [facility] [address] [place] [address] Demand Planning Manager: Loretta Davis MD Blood, Urine 2+ Abnormal NEG [facility] Comment on above: Performed By: #### U MICAO, UA #### [facility] [address] [place] [address] Demand Planning Manager: Loretta Davis MD Clarity (U) Clear Normal CLEAR [facility] Comment on above: Performed By: #### U MICAO, UA #### [facility] [address] [place], [place] [phone] Demand Planning Manager: Loretta Davis MD Color (U) Yellow Normal YEL [facility] Comment on above: Performed By: #### U MICAO, UA #### [facility] [address] [place], [place] [phone] Demand Planning Manager: Loretta Davis MD Glucose Ql (U) Negative Normal NEG [facility] Comment on above: Performed By: #### U MICAO, UA #### [facility] [address] [place] [address] Demand Planning Manager: Loretta Davis MD Ketones Ql (U) Negative Normal NEG [facility] Comment on above: Performed By: #### U MICAO, UA #### [facility] [address] [place], [place] [phone] Demand Planning Manager: Loretta Davis MD Leukocyte esterase Test strip Ql (U) SMALL Abnormal NEG [facility] Comment on above: Performed By: #### U MICAO, UA #### [facility] [address] [place], [place] [phone] Demand Planning Manager: Loretta Davis MD Nitrite,Ur Negative Normal [facility] Comment on above: Performed By: #### U MICAO, UA #### [facility] [address] [place], [place] [phone] Demand Planning Manager: Loretta Davis MD PH,Ur 6.0 Normal 5.0-9.0 [facility] Comment on above: Performed By: #### U MICAO, UA #### [facility] [address] [place], [place] [phone] Demand Planning Manager: Loretta Davis MD Protein Ql (U) 2+ Abnormal NEG [facility] Comment on above: Performed By: #### U MICAO, UA #### [facility] [address] [place], [place] [phone] Demand Planning Manager: Loretta Davis MD Spec. [place],Ur 1.025 High 1.010-1.02 0 [facility] Comment on above: Performed By: #### U MICAO, UA #### [facility] [address] [place] [address] Demand Planning Manager: Loretta Davis MD Urobilinogen,Ur Normal Normal NORM [facility] Comment on above: Performed By: #### U MICAO, UA #### [facility] [address] [place], [facility] Demand Planning Manager: Loretta Davis MD Urinalysis,Microon 3 Bacteria 2+ Abnormal NONE [facility] Comment on above: Performed By: #### U MICAO, UA #### [facility] [address] [place] [address] Demand Planning Manager: Loretta Davis MD Epithelial cells LM Ql (Urine sed) 2 TO 5 Normal 0-25 [facility] Comment on above: Performed By: #### U MICAO, UA #### [facility] [address] [place] [address] [place] [address] Demand Planning Manager: Loretta Davis MD Mucus Strands 1+ Abnormal NONE [facility] Comment on above: Performed By: #### U MICAO, UA #### [facility] [address] [place], [facility] Demand Planning Manager: Loretta Davis MD Urine RBC's 10 TO 20 Normal 0-2 [facility] Comment on above: Performed By: #### U MICAO, UA #### [facility] [address] [place] [address] Demand Planning Manager: Loretta Davis MD Urine WBC's 10 TO 20 Normal 0-5 [facility] Comment on above: Performed By: #### U MICAO, UA #### [facility] [address] [place] [address] Demand Planning Manager: Loretta Davis MD COVID-19 Antigenon 3 COVID-19 [...] developed and its performance characteristic determined by [facility] and validated at [facility]. This test has not been FDA cleared [...] for SARS Antigen by YANELY PERFORMED BY: [facility] [address] [place] [address] PATHOLOGIST FILM REPLACEMENT ORDERER LILLY LOTT M.D. Normal [facility] Comment on above: Performed By: #### S VICENTA, COVID-19 KATELYN #### [facility] [address] Katelyn Ag Negativeon 06-04-19 23 Katelyn Ag Negative Negative Normal Negative [facility] Comment on above: Result Comment: This is a duplicate Katelyn SARS Antigen (YANELY) result to be used for statistical tracking purpose only. PERFORMED BY: [facility] [address] [place] [address] PATHOLOGIST FILM REPLACEMENT ORDERER LILLY LOTT M.D. Performed By: #### S OFIANEG, COVID-19 KATELYN #### [address] Albumin [Mass/volume] in Bod y fluidOrdered By: Tatianna Hilario on 06-02-2022 Albumin (Body fld) [Mass/Vol] 3.9 g/dL 3.2-5.5 [facility] Alkaline phosphatase [Enzyma tic activity/volume] in Serum or PlasmaOrdered By: Tatianna Hilario on 06-02-2022 ALP [Catalytic activity/Vol] 59 U/L 32-92 [facility] Amphetamine Screen Ql (U)Ord ered By: Tatianna Hilario on 06-02-2022 Amphetamines Ql (U) Negative Negative [facility] Aspartate aminotransferase [ Enzymatic activity/volume] in Serum or PlasmaOrdered By: Tatianna Hilario on 06-02-2022 AST [Catalytic activity/Vol] 25 U/L 10-42 [facility] Barbiturates [Presence] in U rineOrdered By: Tatianna Hilario on 06-02-2022 Barbiturates Ql (U) Negative Negative [facility] Basophils Auto (Bld) [#/Vol] Ordered By: Tatianna Hilario on 06-02-2022 Basophils (Bld) [#/Vol] 0.0 10*3/uL 0.0-0.2 [facility] Basophils/100 WBC Auto (Bld) Ordered By: Tatianna Hilario on 06-02-2022 Basophils/100 WBC (Bld) 0.6 % . [facility] Benzodiazepines [Presence] i n UrineOrdered By: Tatianna Hilario on 06-02-2022 Benzodiazepines Ql (U) Positive Negative [facility] Bilirubin Test strip Ql (U)O rdered By: Tatianna Hilario on 06-02-2022 Bilirubin Ql (U) Negative Negative [facility] Bilirubin.total [Mass/volume ] in Serum or PlasmaOrdered By: Tatianna Hilario on 06-02-2022 Bilirubin [Mass/Vol] 0.3 mg/dL 0.3-1.2 [facility] COVID-19 SOFIAOrdered By: Sachin Oro on 06-02-2022 SARS-CoV+SARS-CoV-2 (COVID-19) Ag IA.rapid Ql (Resp) Negative Negative [facility] Comment on above: This is a duplicate Katelyn SARS Antigen (YANELY) result to be used for statistical tracking purpose only. Calcium [Mass/volume] in Ser um or PlasmaOrdered By: Tatianna Hilario on 06-02-2022 Calcium [Mass/Vol] 9.6 mg/dL 8.2-10.2 [facility] Cannabinoids [Presence] in U rine by Screen methodOrdered By: Tatianna Hilario on 06-02-2022 Cannabinoids Screen Ql (U) Negative Negative [facility] Comment on above: These are unconfirme d results and should not be used for legal purposes. Drug Cut-Off Concentration: AMPH 1000 ng/mL CESAR 200 ng/mL DIONNE 200 ng/mL COCM 300 ng/mL OP 300 ng/mL PCP 25 ng/mL THC 20 ng/mL Carbon dioxide, total [Moles /volume] in Serum or PlasmaOrdered By: Tatianna Hilario on 06-02-2022 CO2 [Moles/Vol] 24.5 mmol/L 22.0-30.0 [facility] Chloride [Moles/volume] in S vasquez or PlasmaOrdered By: Tatianna Hilario on 06-02-2022 Chloride [Moles/Vol] 94 mmol/L 95-114 [facility] Color Auto (U)Ordered By: Shahid Hilario on 06-02-2022 Color (U) Yellow Yellow [facility] Complete Blood Count Auto Di ffon 06-02-2022 Basophils (Bld) [#/Vol] 0.0 10*3/uL Normal 0.0-0.2 [facility] Comment on above: Result Comment: PERF ORMED BY: [facility] [address] [place] [address] PATHOLOGIST FILM REPLACEMENT ORDERER LILLY LOTT M.D. Performed By: #### S OFSANDRA COVID-19 KATELYN #### [address] Basophils/100 WBC (Bld) 0.6 % Normal . [facility] Comment on above: Performed By: #### S OFSANDRA COVID-19 KATELYN #### [address] Eosinophils (Bld) [#/Vol] 0.1 10*3/uL Normal 0.0-0.45 [facility] Comment on above: Performed By: #### S OFSANDRA COVID-19 KATELYN #### [address] Eosinophils/100 WBC (Bld) 0.8 % Normal . [facility] Comment on above: Performed By: #### S VICENTA COVID-19 KATELYN #### [address] Erythrocyte distribution width (RBC) [Ratio] 13.4 % Normal 11.9-15.3 [facility] Comment on above: Performed By: #### S OFSANDRA COVID-19 KATELYN #### [address] Hematocrit (Bld) [Volume fraction] 39.4 % Normal 34.0-46.4 [facility] Comment on above: Performed By: #### S OFSANDRA COVID-19 KATELYN #### [address] Hemoglobin (Bld) [Mass/Vol] 12.8 g/dL Normal 11.8-15.4 [facility] Comment on above: Performed By: #### S OFSANDRA COVID-19 KATELYN #### [address] Lymphocytes (Bld) [#/Vol] 1.8 10*3/uL Normal 1.00-4.8 [facility] Comment on above: Performed By: #### S OFSANDRA COVID-19 KATELYN #### [address] Lymphocytes/100 WBC (Bld) 23.6 % Normal . [facility] Comment on above: Performed By: #### S OFSANDRA COVID-19 KATELYN #### [address] MCH (RBC) [Entitic mass] 29.7 pg Normal 24.7-34.3 [facility] Comment on above: Performed By: #### S OFSANDRA COVID-19 KATELYN #### [address] MCV (RBC) [Entitic vol] 91.6 fL Normal 80-100 [facility] Comment on above: Performed By: #### S OFSANDRA COVID-19 KATELYN #### [address] Mean Corpuscular HGB Conc 32.4 g/dL Normal 32.0-35.0 [facility] Comment on above: Performed By: #### S OFSANDRA COVID-19 KATELYN #### [address] Monocytes (Bld) [#/Vol] 0.5 10*3/uL Normal 0.0-0.8 [facility] Comment on above: Performed By: #### S OFSANDRA COVID-19 KATELYN #### [place] [address] [place] Monocytes/100 WBC (Bld) 18.48 % Normal 0.00-20.00 [facility] Comment on above: Performed By: #### S OFSANDRA COVID-19 KATELYN #### [address] Monocytes/100 WBC (Bld) 6.0 % Normal . [facility] Comment on above: Performed By: #### S OFSANDRA COVID-19 KATELYN #### [place] [address] [place] Neutrophils (Bld) [#/Vol] 5.3 10*3/uL Normal 1.8-7.7 [facility] Comment on above: Performed By: #### S DIONNE YADAVID-19 KATELYN #### [facility] [address] Neutrophils/100 WBC (Bld) 69.0 % Normal . [facility] Comment on above: Performed By: #### S DIONNE YADAVID-19 KATELYN #### [facility] [address] NRBC% 0.1 /100{WBC} Normal 0-0.5 [facility] Comment on above: Performed By: #### S DIONNE YADAVID-19 KATELYN #### [address] Platelet mean volume (Bld) [Entitic vol] 6.5 fL Normal 6.3-10.7 [facility] Comment on above: Performed By: #### S DIONNE YADAVID-19 KATELYN #### [place] [address] [place] Platelets (Bld) [#/Vol] 372 10*3/uL Normal 150-450 [facility] Comment on above: Performed By: #### S DIONNE YADAVID-19 KATELYN #### [facility] [address] [place] [address] [place] RBC (Bld) [#/Vol] 4.31 10*6/uL Normal 3.60-5.00 [facility] Comment on above: Performed By: #### S DIONNE YADAVID-19 KATELYN #### [facility] [address] [place] [address] [place] WBC (Bld) [#/Vol] 7.6 10*3/uL Normal 3.8-11.6 [facility] Comment on above: Performed By: #### S VICENTA COVID-19 KATELYN #### [facility] [address] Comprehensive Metabolic Pane alcides 06-02-2022 Albumin [Mass/Vol] 3.9 g/dL Normal 3.2-5.5 [facility] Comment on above: Performed By: #### S DEONNA YADAV- KATELYN #### [facility] [address] [place] [address] [place] Albumin/Globulin [Mass ratio] 1.4 {ratio} Normal [facility] Comment on above: Performed By: #### S DEONNA YADAV- KATELYN #### [facility] [address] ALP [Catalytic activity/Vol] 59 U/L Normal 32-92 [facility] Comment on above: Performed By: #### S DEONNA YADAV- KATELYN #### [facility] [address] ALT [Catalytic activity/Vol] 37 U/L Normal 10-60 [facility] Comment on above: Performed By: #### S DEONNA YADAV- KATELYN #### [facility] [address] Anion gap [Moles/Vol] 16.8 mmol/L High 6.0-15.0 [facility] Comment on above: Performed By: #### S DEONNA YADAV- KATELYN #### [facility] [address] [place] [address] [place] AST [Catalytic activity/Vol] 25 U/L Normal 10-42 [facility] Comment on above: Performed By: #### S DEONNA YADAV- KATELYN #### [facility] [address] [place] [address] [place] Bilirubin [Mass/Vol] 0.3 mg/dL Normal 0.3-1.2 [facility] Comment on above: Performed By: #### S DEONNA YADAV- KATELYN #### [facility] [address] [place] [address] [place] Calcium [Mass/Vol] 9.6 mg/dL Normal 8.2-10.2 [facility] Comment on above: Performed By: #### S OFSANDRA COVID-19 KTAELYN #### [facility] [address] Chloride [Moles/Vol] 94 mmol/L Low 95-114 [facility] Comment on above: Performed By: #### S OFSANDRA COVID-19 KATELYN #### [facility] [address] CO2 [Moles/Vol] 24.5 mmol/L Normal 22.0-30.0 [facility] Comment on above: Performed By: #### S OFSANDRA COVID-19 KATELYN #### [facility] [address] Creatinine [Mass/Vol] 0.70 mg/dL Normal 0.44-1.03 [facility] Comment on above: Performed By: #### S OFSANDRA COVID-19 KATELYN #### [facility] [address] Creatinine Clr Calc Pharmacy 53.85 [facility] Comment on above: Result Comment: PERF ORMED BY: [place] [address] PATHOLOGIST FILM REPLACEMENT ORDERER ILLLY LOTT M.D. Performed By: #### S OFSANDRA COVID-19 KATELYN #### [facility] [address] [place] [address] Estimated GFR ( Meenu > 60 [facility] Comment on above: Result Comment: GFR estimated reference range: According to KDOQI guidelines, <60 ml/min/1.73m2 is sufficient to diagnose a patient with chronic kidney disease. Performed By: #### S OFSANDRA COVID-19 KATELYN #### [facility] [address] Estimated GFR (Non- Am > 60 [facility] Comment on above: Performed By: #### S OFSANDRA COVID-19 KATELYN #### [facility] [address] [place] [address] [place] Globulin (S) [Mass/Vol] 2.8 g/dL Normal [facility] Comment on above: Performed By: #### S VICENTA COVID- KATELYN #### [facility] [address] [place] [address] [place] Glucose [Mass/Vol] 138 mg/dL High 70-100 [facility] Comment on above: Result Comment: [place] Glucose Reference Range is dependent on time and content of last meal. Glucose of more than 200 mg/dL in a nonstressed, ambulatory subject supports the diagnosis of Diabetes Mellitus. ADA recommended reference range Performed By: #### S VICENTA COVID-19 KATELYN #### [facility] [address] [place] [address] [place] Potassium [Moles/Vol] 4.3 mmol/L Normal 3.5-5.1 [facility] Comment on above: Performed By: #### S DIONNE YADAVID- KATELYN #### [facility] [address] [place] [address] [place] Protein [Mass/Vol] 6.7 g/dL Normal 6.1-7.9 [facility] Comment on above: Performed By: #### S VICENTA COVID- KATELYN #### [facility] [address] [place] [address] [place] Sodium [Moles/Vol] 131 mmol/L Low 136-146 [facility] Comment on above: Performed By: #### S VICENTA COVID- KATELYN #### [facility] [address] [place] [address] [place] Urea nitrogen [Mass/Vol] 14 mg/dL Normal 9-23 [facility] Comment on above: Performed By: #### S VICENTA COVID- KATELYN #### [facility] [address] [place] [address] [place] Creatinine and Glomerular fi ltration rate.predicted panel (S/P/Bld)Ordered By: Tatianna Hilario on 06-02-2022 Creatinine [Mass/Vol] 0.70 mg/dL 0.44-1.03 [facility] Drug Screen,Urineon 06-02-19 Amphetamine Screen,Urine Negative Normal Negative [facility] Comment on above: Performed By: #### C K, CRP, CMP, CBC, ESR, TSH3 #### [facility] [address] [place] [address] [place] #### ALDOLASE #### [facility] , Barbiturate Screen,Urine Negative Normal Negative [facility] Comment on above: Performed By: #### C K, CRP, CMP, CBC, ESR, TSH3 #### [place] [address] [place] #### ALDOLASE #### [facility] , Benzodiazepines Screen,Urine Positive High Negative [facility] Comment on above: Performed By: #### C K, CRP, CMP, CBC, ESR, TSH3 #### [address] #### ALDOLASE #### [facility] , Cannabinoid Screen,Urine Negative Normal Negative [facility] Comment on above: Result Comment: Thes e are unconfirmed results and should not be used for legal purposes. Drug Cut-Off Concentration: AMPH 1000 ng/mL CESAR 200 ng/mL DIONNE 200 ng/mL COCM 300 ng/mL OP 300 ng/mL PCP 25 ng/mL THC 20 ng/mL PERFORMED BY: [place] [address] PATHOLOGIST FILM REPLACEMENT ORDERER LILLY LOTT M.D. Performed By: #### C K, CRP, CMP, CBC, ESR, TSH3 #### [place] [address] [place] #### ALDOLASE #### [facility] , Cocaine Screen,Urine Negative Normal Negative [facility] Comment on above: Performed By: #### C K, CRP, CMP, CBC, ESR, TSH3 #### [place] [address] [place] #### ALDOLASE #### [facility] , Opiate Screen,Urine Negative Normal Negative [facility] Comment on above: Performed By: #### C K, CRP, CMP, CBC, ESR, TSH3 #### [facility] [address] [place] [address] [place] #### ALDOLASE #### [facility] , Phencyclidine Screen,Urine Negative Normal Negative [facility] Comment on above: Performed By: #### C K, CRP, CMP, CBC, ESR, TSH3 #### [facility] [address] [place] [address] [place] #### ALDOLASE #### [facility] , Eosinophils Auto (Bld) [#/Vo l]Ordered By: Tatianna Hilario on 06-02-2022 Eosinophils (Bld) [#/Vol] 0.1 10*3/uL 0.0-0.45 [facility] Eosinophils/100 WBC Auto (Bl d)Ordered By: Tatianna Hilario on 06-02-2022 Eosinophils/100 WBC (Bld) 0.8 % . [facility] Erythrocyte distribution wid th Auto (RBC) [Ratio]Ordered By: Tatianna Hilario on 06-02-2022 Erythrocyte distribution width (RBC) [Ratio] 13.4 % 11.9-15.3 [facility] Estimated glomerular filtrat ion rate (GFR) non- AmericanOrdered By: Tatianna Hilario on 06-02-2022 GFR/1.73 sq M.predicted among non-blacks MDRD (S/P/Bld) [Vol rate/Area] > 60 mL/Min [facility] Ethanol [Mass/volume] in Ser um or PlasmaOrdered By: Tatianna Hilario on 06-02-2022 Ethanol [Mass/Vol] mg/dL [facility] Ethanol [Mass/Vol] TNP [facility] Comment on above: Test not performed Ethyl Alcohol Profileon 05-07 Ethanol [Mass/Vol] mg/dL Normal [facility] Comment on above: Performed By: #### S OFIANEG, COVID-19 KATELYN #### [facility] [address] [place] [address] [place] Percent Ethanol Not performed Normal [facility] Comment on above: Result Comment: PERF ORMED BY: [facility] [address] [place] [address] PATHOLOGIST FILM REPLACEMENT ORDERER LILLY LOTT M.D. Performed By: #### S DIONNE YADAVID-19 KATELYN #### [facility] [address] Globulin Calc (S) [Mass/Vol] Ordered By: Tatianna Hilario on 06-02-2022 Globulin (S) [Mass/Vol] 2.8 g/dL [facility] Glucose [Mass/volume] in Ser um or PlasmaOrdered By: Tatianna Hilario on 06-02-2022 Glucose [Mass/Vol] 138 mg/dL 70-100 [facility] Comment on above: ADA recommended refe rence rangeRandom Glucose Reference Range is dependent on time and content of last meal. Glucose of more than 200 mg/dL in a nonstressed, ambulatory subject supports the diagnosis of Diabetes Mellitus. Hematocrit Auto (Bld) [Volum e fraction]Ordered By: Tatianna Hilario on 06-02-2022 Hematocrit (Bld) [Volume fraction] 39.4 % 34.0-46.4 [facility] Hemoglobin [Mass/volume] in BloodOrdered By: Tatianna Hilario on 06-02-2022 Hemoglobin (Bld) [Mass/Vol] 12.8 g/dL 11.8-15.4 [facility] Ketones Auto test strip (U) [Mass/Vol]Ordered By: Tatianna Hilario on 06-02-2022 Ketones (U) [Mass/Vol] Negative Negative [facility] - Drug toxicology Ordered By: Tatianna Hilario on 06-02-2022 Opiates Ql (U) Negative Negative [facility] Leukocytes [#/volume] correc marlen for nucleated erythrocytes in Blood by Automated counOrdered By: Tatianna Hilario on 06-02-2022 WBC corrected for nucl RBC Auto (Bld) [#/Vol] 7.6 10*3/uL 3.8-11.6 [facility] Lymphocytes Auto (Bld) [#/Vo l]Ordered By: Tatianna Hilario on 06-02-2022 Lymphocytes (Bld) [#/Vol] 1.8 10*3/uL 1.00-4.8 [facility] Lymphocytes/100 WBC Auto (Bl d)Ordered By: Tatianna Hilario on 06-02-2022 Lymphocytes/100 WBC (Bld) 23.6 % . [facility] MCH Auto (RBC) [Entitic mass ]Ordered By: Tatianna Hilario on 06-02-2022 MCH (RBC) [Entitic mass] 29.7 pg 24.7-34.3 [facility] MCHC Auto (RBC) [Mass/Vol]Or dered By: Tatianna Hilario on 06-02-2022 MCHC (RBC) [Mass/Vol] 32.4 g/dL 32.0-35.0 [facility] MCV Auto (RBC) [Entitic vol] Ordered By: Tatianna Hilario on 06-02-2022 MCV (RBC) [Entitic vol] 91.6 fL 80-100 [facility] Monocyte distribution width [Entitic volume] in Blood by AutomatedOrdered By: Tatianna Hilario on 06-02-2022 Monocyte distribution width Auto (Bld) [Entitic vol] 18.48 % 0.00-20.00 [facility] Monocytes Auto (Bld) [#/Vol] Ordered By: Tatianna Hilario on 06-02-2022 Monocytes (Bld) [#/Vol] 0.5 10*3/uL 0.0-0.8 [facility] Monocytes/100 WBC Auto (Bld) Ordered By: Tatianna Hilario on 06-02-2022 Monocytes/100 WBC (Bld) 6.0 % . [facility] Neutrophils Auto (Bld) [#/Vo l]Ordered By: Tatianna Hilario on 06-02-2022 Neutrophils (Bld) [#/Vol] 5.3 10*3/uL 1.8-7.7 [facility] Neutrophils/100 WBC Auto (Bl d)Ordered By: Tatianna Hilario on 06-02-2022 Neutrophils/100 WBC (Bld) 69.0 % . [facility] Nitrite Test strip Ql (U)Ord ered By: Tatianna Hilario on 06-02-2022 Nitrite Ql (U) Negative Negative [facility] No Panel InformationOrdered By: Anna Oro on 06-02-2022 SARS Antigen (LFIA) [facility] SARS Antigen (LFIA) [facility] No Panel InformationOrdered By: Tatianna Hilario on 06-02-2022 Estimated GFR () > 60 mL/Min [facility] Comment on above: GFR estimated refere nce range: According to KDOQI guidelines, <60 ml/min/1.73m2 is sufficient to diagnose a patient with chronic kidney disease. Pharmacy Creatinine Clearance (Chem 53.85 [facility] Nucleated erythrocytes [Pres ence] in Blood by Automated countOrdered By: Tatianna Hilario on 06-02-2022 Nucleated RBC Auto Ql (Bld) 0.1 /100{WBC} 0-0.5 [facility] Phencyclidine Screen Ql (U)O rdered By: Tatianna Hilario on 06-02-2022 Phencyclidine Ql (U) Negative Negative [facility] Platelet mean volume Auto (B ld) [Entitic vol]Ordered By: Tatianna Hilario on 06-02-2022 Platelet mean volume (Bld) [Entitic vol] 6.5 fL 6.3-10.7 [facility] Platelets Auto (Bld) [#/Vol] Ordered By: Tatianna Hilario on 06-02-2022 Platelets (Bld) [#/Vol] 372 10*3/uL 150-450 [facility] Potassium [Moles/volume] in Serum or PlasmaOrdered By: Tatianna Hilario on 06-02-2022 Potassium [Moles/Vol] 4.3 mmol/L 3.5-5.1 [facility] Protein Auto test strip (U) [Mass/Vol]Ordered By: Tatianna Hilario on 06-02-2022 Protein (U) [Mass/Vol] Negative Negative [facility] Protein [Mass/volume] in Ser um or PlasmaOrdered By: Tatianna Hilario on 06-02-2022 Protein [Mass/Vol] 6.7 g/dL 6.1-7.9 [facility] RBC Auto (Bld) [#/Vol]Ordere d By: Tatianna Hilario on 06-02-2022 RBC (Bld) [#/Vol] 4.31 10*6/uL 3.60-5.00 [facility] Serum or plasma alanine gomez otransferase measurement without P-5'-P (enzymatic activiOrdered By: Tatianna Hilario on 06-02-2022 ALT No additional P-5'-P [Catalytic activity/Vol] 37 U/L 10-60 [facility] Serum or plasma albumin/glob ulin mass ratioOrdered By: Tatianna Hilario on 06-02-2022 Albumin/Globulin [Mass ratio] 1.4 {ratio} [facility] Serum or plasma anion gap de terminationOrdered By: Tatianna Hilario on 06-02-2022 Anion gap [Moles/Vol] 16.8 mmol/L 6.0-15.0 [facility] Sodium [Moles/volume] in Ser um or PlasmaOrdered By: Tatianna Hilario on 06-02-2022 Sodium [Moles/Vol] 131 mmol/L 136-146 [facility] Specific gravity Auto test s trip (U) [Rel density]Ordered By: Tatianna Hilario on 06-02-2022 Specific gravity (U) [Rel density] 1.005 1.001-1.03 0 [facility] Urea nitrogen [Mass/volume] in Serum or PlasmaOrdered By: Tatianna Hilario on 06-02-2022 Urea nitrogen [Mass/Vol] 14 mg/dL 9-23 [facility] Urinalysison 06-02-2022 Appearance (U) Clear Normal Clear [facility] Comment on above: Order Comment: Name Collection Type:: Clean-Voided Midstream Performed By: #### C K, CRP, CMP, CBC, ESR, TSH3 #### [facility] [address] [place] [address] #### ALDOLASE #### [facility] , Bilirubin,Urine Negative Normal Negative [facility] Comment on above: Order Comment: Name Collection Type:: Clean-Voided Midstream Performed By: #### C K, CRP, CMP, CBC, ESR, TSH3 #### [facility] [address] [place] [address] #### ALDOLASE #### [facility] , Color (U) Yellow Normal Yellow [facility] Comment on above: Order Comment: Name Collection Type:: Clean-Voided Midstream Performed By: #### C K, CRP, CMP, CBC, ESR, TSH3 #### [facility] [address] [place] [address] [place] #### ALDOLASE #### [facility] , Glucose Ql (U) Normal Normal Normal [facility] Comment on above: Order Comment: Name Collection Type:: Clean-Voided Midstream Performed By: #### C K, CRP, CMP, CBC, ESR, TSH3 #### [facility] [address] [place] [address] #### ALDOLASE #### [facility] , Ketones Ql (U) Negative Normal Negative [facility] Comment on above: Order Comment: Name Collection Type:: Clean-Voided Midstream Performed By: #### C K, CRP, CMP, CBC, ESR, TSH3 #### [facility] [address] [place] [address] #### ALDOLASE #### [facility] , Leukocyte esterase Test strip Ql (U) Negative Normal Negative [facility] Comment on above: Order Comment: Name Collection Type:: Clean-Voided Midstream Performed By: #### C K, CRP, CMP, CBC, ESR, TSH3 #### [facility] [address] [place] [address] [place] #### ALDOLASE #### [facility] , Nitrite,Urine Negative Normal Negative [facility] Comment on above: Order Comment: Name Collection Type:: Clean-Voided Midstream Performed By: #### C K, CRP, CMP, CBC, ESR, TSH3 #### [facility] [address] [place] [address] [place] #### ALDOLASE #### [facility] , Occult Blood,Urine Negative Normal Negative [facility] Comment on above: Order Comment: Name Collection Type:: Clean-Voided Midstream Result Comment: PERF ORMED BY: [place] [address] PATHOLOGIST FILM REPLACEMENT ORDERER LILLY LOTT M.D. Performed By: #### C K, CRP, CMP, CBC, ESR, TSH3 #### [facility] [address] [place] [address] #### ALDOLASE #### [facility] , pH (U) 6.5 [pH] Normal 5.0-9.0 [facility] Comment on above: Order Comment: Name Collection Type:: Clean-Voided Midstream Performed By: #### C K, CRP, CMP, CBC, ESR, TSH3 #### [address] #### ALDOLASE #### [facility] , Protein,Urine Negative Normal Negative [facility] Comment on above: Order Comment: Name Collection Type:: Clean-Voided Midstream Performed By: #### C K, CRP, CMP, CBC, ESR, TSH3 #### [facility] [address] [place] [address] #### ALDOLASE #### [facility] , Specificy [place],Urine 1.005 Normal 1.001-1.03 0 [facility] Comment on above: Order Comment: Name Collection Type:: Clean-Voided Midstream Performed By: #### C K, CRP, CMP, CBC, ESR, TSH3 #### [address] #### ALDOLASE #### [facility] , Urobilinogen,Urine Normal Normal Normal [facility] Comment on above: Order Comment: Name Collection Type:: Clean-Voided Midstream Performed By: #### C K, CRP, CMP, CBC, ESR, TSH3 #### [address] #### ALDOLASE #### [facility] , Urine clarity by refractomet ry automatedOrdered By: Tatianna Hilario on 06-02-2022 Clarity Refractometry automated (U) Clear Clear [facility] Urine cocaine detectionOrder ed By: Tatianna Hilario on 06-02-2022 Cocaine Ql (U) Negative Negative [facility] Urine glucose measurement by automated test strip (mass/volume)Ordered By: Tatianna Hilario on 06-02-2022 Glucose Auto test strip (U) [Mass/Vol] Normal mg/dL Normal [facility] Urine hemoglobin detection b y automated test stripOrdered By: Tatianna Hilario on 06-02-2022 Hemoglobin Auto test strip Ql (U) Negative Negative [facility] Urine leukocyte esterase det ection by automated test stripOrdered By: Tatianna Hilario on 06-02-2022 Leukocyte esterase Auto test strip Ql (U) Negative Negative [facility] Urobilinogen Auto test strip (U) [Mass/Vol]Ordered By: Tatianna Hilario on 06-02-2022 Urobilinogen (U) [Mass/Vol] Normal mg/dL Normal [facility] WBC Auto (Bld) [#/Vol]Ordere d By: Tatianna Hilario on 06-02-2022 WBC (Bld) [#/Vol] 7.6 10*3/uL 3.8-11.6 [facility] pH Auto test strip (U)Ordere d By: Tatianna Hilario on 06-02-2022 pH (U) 6.5 [pH] 5.0-9.0 [facility] CULTURE URINEon 05-20-2022 CULTURE URINE Culture Observations : LIGHT GROWTH OF MIXED GENITAL JAVON. NO POTENTIAL PATHOGENS SEEN. Normal [facility] Comment on above: Performed By: #### L IPID, BMP, NA #### [facility] [address] [place] [address] Dr. Dilip Cartagena CULTURE URINEon 05-08-2022 CULTURE [...] F Nitrofurantoin <=16 S F Normal [facility] Comment on above: Performed By: #### L IPID, BMP, NA #### [facility] [address] [address] [address] Dilip Cartagena LUIS ENRIQUE Antinuclear Antibodieson 05-05-2022 Antinuclear Abs, IFA Positive Critically abnormal . [facility] Comment on above: Result Comment: Nega tive <1:80 Borderline 1:80 Positive >1:80 Performed By: #### S OFSANDRA, COVID-19 KATELYN #### [facility] [address] Note 1 Normal . [facility] Comment on above: Result Comment: For more [...] titers Nucleosomes, Histones Drug-induced SLE Speckled Sm, NURSING FACULTY, SCL-70, SLE,MCTD,PSS (diffuse form), SS-A/SS-B Sjogrens Nucleolar SCL-70, PM-1/SCL High titers Scleroderma, PM/DM Centromere Centromere PSS (limited form) w/Crest syndrome variable Nuclear Dot [id number] Primary Biliary Cirrhosis Nuclear GP210, Primary Biliary Cirrhosis Membrane ban A,B,C Performed at: [address] [id number] Demand Planning Manager: Reggie Lazcano PhD, Phone: [phone] PERFORMED BY: [place] [address] PATHOLOGIST FILM REPLACEMENT ORDERER LILLY LOTT M.D. Performed By: #### S OFSANDRA COVID-19 KATELYN #### [address] Speckled Pattern 1:80 Normal . [facility] Comment on above: Result Comment: ICAP nomenclature: AC-2,4,5,29 Performed By: #### S OFSANDRA COVID-19 KATELYN #### [address] Aldolaseon 05-05-2022 Aldolase 7.8 U/L Normal 3.3-10.3 [facility] Comment on above: Result Comment: Perf ormed at: [place] [id number] Demand Planning Manager: Reggie Lazcano PhD, Phone: [phone] PERFORMED BY: [place] [address] PATHOLOGIST FILM REPLACEMENT ORDERER LILLY LOTT M.D. Performed By: #### C K, CRP, CMP, CBC, ESR, TSH3 #### [address] #### ALDOLASE #### [facility] , Angiotensin Converting Enzym adelia 05-05-2022 Angiotensin converting enzyme [Catalytic activity/Vol] U/L Normal 14-82 [facility] Comment on above: Result Comment: Perf ormed at: [place] [id number] Demand Planning Manager: Reggie Lazcano PhD, Phone: [phone] Performed By: #### S OFSANDRA, COVID-19 KATELYN #### [address] Basophils Auto (Bld) [#/Vol] Ordered By: Johann Dolan on 05-05-2022 Basophils (Bld) [#/Vol] 0.1 10*3/uL 0.0-0.2 [facility] Basophils/100 WBC Auto (Bld) Ordered By: Johann Dolan on 05-05-2022 Basophils/100 WBC (Bld) 0.7 % . [facility] Body fluid albumin measureme nt (mass/volume)Ordered By: Johann Dolan on 05-05-2022 Albumin (Body fld) [Mass/Vol] 4.6 g/dL 3.2-5.5 [facility] C reactive protein [Mass/vol ume] in Serum or PlasmaOrdered By: Johann Dolan on 05-05-2022 CRP [Mass/Vol] mg/L 0-10 [facility] Comment on above: Performed at: [facility] [place] [id number] Director: Reggie Lazcano PhD, Phone: [phone] C-Reactive Proteinon 023 C-Reactive Protein 0.6 mg/dL Normal 0.0-1.0 [facility] Comment on above: Performed By: #### C K, CRP, CMP, CBC, ESR, TSH3 #### [facility] [address] [place] [address] #### ALDOLASE #### [facility] , CT biopsyOrdered By: Johann Dolan on 05-05-2022 CT biopsy 7.8 U/L 3.3-10.3 [facility] Comment on above: Performed at: [facility] [place] [id number] Director: Reggie Lazcano PhD, Phone: [phone] Complete Blood Count Auto Di ffon 05-05-2022 Basophils (Bld) [#/Vol] 0.1 10*3/uL Normal 0.0-0.2 [facility] Comment on above: Performed By: #### C K, CRP, CMP, CBC, ESR, TSH3 #### [place] [address] [place] #### ALDOLASE #### [facility] , Basophils/100 WBC (Bld) 0.7 % Normal . [facility] Comment on above: Performed By: #### C K, CRP, CMP, CBC, ESR, TSH3 #### [address] #### ALDOLASE #### [facility] , Eosinophils (Bld) [#/Vol] 0.1 10*3/uL Normal 0.0-0.45 [facility] Comment on above: Performed By: #### C K, CRP, CMP, CBC, ESR, TSH3 #### [address] #### ALDOLASE #### [facility] , Eosinophils/100 WBC (Bld) 0.7 % Normal . [facility] Comment on above: Performed By: #### C K, CRP, CMP, CBC, ESR, TSH3 #### [address] #### ALDOLASE #### [facility] , Erythrocyte distribution width (RBC) [Ratio] 13.9 % Normal 11.9-15.3 [facility] Comment on above: Performed By: #### C K, CRP, CMP, CBC, ESR, TSH3 #### [place] [address] [place] #### ALDOLASE #### [facility] , Hematocrit (Bld) [Volume fraction] 40.3 % Normal 34.0-46.4 [facility] Comment on above: Performed By: #### C K, CRP, CMP, CBC, ESR, TSH3 #### [place] [address] [place] #### ALDOLASE #### [facility] , Hemoglobin (Bld) [Mass/Vol] 13.1 g/dL Normal 11.8-15.4 [facility] Comment on above: Performed By: #### C K, CRP, CMP, CBC, ESR, TSH3 #### [place] [address] [place] #### ALDOLASE #### [facility] , Lymphocytes (Bld) [#/Vol] 1.7 10*3/uL Normal 1.00-4.8 [facility] Comment on above: Performed By: #### C K, CRP, CMP, CBC, ESR, TSH3 #### [place] [address] [place] #### ALDOLASE #### [facility] , Lymphocytes/100 WBC (Bld) 22.1 % Normal . [facility] Comment on above: Performed By: #### C K, CRP, CMP, CBC, ESR, TSH3 #### [place] [address] [place] #### ALDOLASE #### [facility] , MCH (RBC) [Entitic mass] 30.2 pg Normal 24.7-34.3 [facility] Comment on above: Performed By: #### C K, CRP, CMP, CBC, ESR, TSH3 #### [place] [address] [place] #### ALDOLASE #### [facility] , MCV (RBC) [Entitic vol] 92.6 fL Normal 80-100 [facility] Comment on above: Performed By: #### C K, CRP, CMP, CBC, ESR, TSH3 #### [place] [address] [place] #### ALDOLASE #### [facility] , Mean Corpuscular HGB Conc 32.6 g/dL Normal 32.0-35.0 [facility] Comment on above: Performed By: #### C K, CRP, CMP, CBC, ESR, TSH3 #### [place] [address] [place] #### ALDOLASE #### [facility] , Monocytes (Bld) [#/Vol] 0.3 10*3/uL Normal 0.0-0.8 [facility] Comment on above: Performed By: #### C K, CRP, CMP, CBC, ESR, TSH3 #### [facility] [address] [place] [address] #### ALDOLASE #### [facility] , Monocytes/100 WBC (Bld) 4.5 % Normal . [facility] Comment on above: Performed By: #### C K, CRP, CMP, CBC, ESR, TSH3 #### [place] [address] [place] #### ALDOLASE #### [facility] , Neutrophils (Bld) [#/Vol] 5.4 10*3/uL Normal 1.8-7.7 [facility] Comment on above: Performed By: #### C K, CRP, CMP, CBC, ESR, TSH3 #### [place] [address] [place] #### ALDOLASE #### [facility] , Neutrophils/100 WBC (Bld) 72.0 % Normal . [facility] Comment on above: Performed By: #### C K, CRP, CMP, CBC, ESR, TSH3 #### [facility] [address] [place] [address] [place] #### ALDOLASE #### [facility] , NRBC% 0.1 /100{WBC} Normal 0-0.5 [facility] Comment on above: Performed By: #### C K, CRP, CMP, CBC, ESR, TSH3 #### [facility] [address] [place] [address] [place] #### ALDOLASE #### [facility] , Platelet mean volume (Bld) [Entitic vol] 6.7 fL Normal 6.3-10.7 [facility] Comment on above: Performed By: #### C K, CRP, CMP, CBC, ESR, TSH3 #### [facility] [address] [place] [address] [place] #### ALDOLASE #### [facility] , Platelets (Bld) [#/Vol] 379 10*3/uL Normal 150-450 [facility] Comment on above: Performed By: #### C K, CRP, CMP, CBC, ESR, TSH3 #### [facility] [address] [place] [address] #### ALDOLASE #### [facility] , RBC (Bld) [#/Vol] 4.35 10*6/uL Normal 3.60-5.00 [facility] Comment on above: Performed By: #### C K, CRP, CMP, CBC, ESR, TSH3 #### [place] [address] [place] #### ALDOLASE #### [facility] , WBC (Bld) [#/Vol] 7.5 10*3/uL Normal 3.8-11.6 [facility] Comment on above: Performed By: #### C K, CRP, CMP, CBC, ESR, TSH3 #### [address] #### ALDOLASE #### [facility] , Comprehensive Metabolic Pane alcides 05-05-2022 Albumin [Mass/Vol] 4.6 g/dL Normal 3.2-5.5 [facility] Comment on above: Performed By: #### C K, CRP, CMP, CBC, ESR, TSH3 #### [facility] [address] [place] [address] [place] #### ALDOLASE #### [facility] , Albumin/Globulin [Mass ratio] 1.9 {ratio} Normal [facility] Comment on above: Performed By: #### C K, CRP, CMP, CBC, ESR, TSH3 #### [address] [place] [address] [place] #### ALDOLASE #### [facility] , ALP [Catalytic activity/Vol] 61 U/L Normal 32-92 [facility] Comment on above: Performed By: #### C K, CRP, CMP, CBC, ESR, TSH3 #### [facility] [address] [place] [address] #### ALDOLASE #### [facility] , ALT [Catalytic activity/Vol] 61 U/L High 10-60 [facility] Comment on above: Performed By: #### C K, CRP, CMP, CBC, ESR, TSH3 #### [facility] [address] [place] [address] [place] #### ALDOLASE #### [facility] , Anion gap [Moles/Vol] 17.3 mmol/L High 6.0-15.0 [facility] Comment on above: Performed By: #### C K, CRP, CMP, CBC, ESR, TSH3 #### [facility] [address] [place] [address] [place] #### ALDOLASE #### [facility] , AST [Catalytic activity/Vol] 39 U/L Normal 10-42 [facility] Comment on above: Performed By: #### C K, CRP, CMP, CBC, ESR, TSH3 #### [facility] [address] [place] [address] [place] #### ALDOLASE #### [facility] , Bilirubin [Mass/Vol] 0.6 mg/dL Normal 0.3-1.2 [facility] Comment on above: Performed By: #### C K, CRP, CMP, CBC, ESR, TSH3 #### [facility] [address] [place] [address] [place] #### ALDOLASE #### [facility] , Calcium [Mass/Vol] 10.3 mg/dL High 8.2-10.2 [facility] Comment on above: Performed By: #### C K, CRP, CMP, CBC, ESR, TSH3 #### [facility] [address] [place] [address] [place] #### ALDOLASE #### [facility] , Chloride [Moles/Vol] 94 mmol/L Low 95-114 [facility] Comment on above: Performed By: #### C K, CRP, CMP, CBC, ESR, TSH3 #### [facility] [address] [place] [address] [place] #### ALDOLASE #### [facility] , CO2 [Moles/Vol] 25.4 mmol/L Normal 22.0-30.0 [facility] Comment on above: Performed By: #### C K, CRP, CMP, CBC, ESR, TSH3 #### [facility] [address] [place] [address] #### ALDOLASE #### [facility] , Creatinine [Mass/Vol] 0.66 mg/dL Normal 0.44-1.03 [facility] Comment on above: Performed By: #### C K, CRP, CMP, CBC, ESR, TSH3 #### [facility] [address] [place] [address] [place] #### ALDOLASE #### [facility] , Estimated GFR ( Meenu > 60 [facility] Comment on above: Result Comment: GFR estimated reference range: According to KDOQI guidelines, <60 ml/min/1.73m2 is sufficient to diagnose a patient with chronic kidney disease. Performed By: #### C K, CRP, CMP, CBC, ESR, TSH3 #### [facility] [address] [place] [address] [place] #### ALDOLASE #### [facility] , Estimated GFR (Non- Am > 60 [facility] Comment on above: Performed By: #### C K, CRP, CMP, CBC, ESR, TSH3 #### [facility] [address] [place] [address] [place] #### ALDOLASE #### [facility] , Globulin (S) [Mass/Vol] 2.4 g/dL Normal [facility] Comment on above: Performed By: #### C K, CRP, CMP, CBC, ESR, TSH3 #### [facility] [address] [place] [address] [place] #### ALDOLASE #### [facility] , Glucose [Mass/Vol] 119 mg/dL High 70-100 [facility] Comment on above: Result Comment: [facility] Glucose Reference Range is dependent on time and content of last meal. Glucose of more than 200 mg/dL in a nonstressed, ambulatory subject supports the diagnosis of Diabetes Mellitus. ADA recommended reference range Performed By: #### C K, CRP, CMP, CBC, ESR, TSH3 #### [place] [address] [place] #### ALDOLASE #### [facility] , Potassium [Moles/Vol] 4.7 mmol/L Normal 3.5-5.1 [facility] Comment on above: Performed By: #### C K, CRP, CMP, CBC, ESR, TSH3 #### [place] [address] [place] #### ALDOLASE #### [facility] , Protein [Mass/Vol] 7.0 g/dL Normal 6.1-7.9 [facility] Comment on above: Performed By: #### C K, CRP, CMP, CBC, ESR, TSH3 #### [place] [address] [place] #### ALDOLASE #### [facility] , Sodium [Moles/Vol] 132 mmol/L Low 136-146 [facility] Comment on above: Performed By: #### C K, CRP, CMP, CBC, ESR, TSH3 #### [place] [address] [place] #### ALDOLASE #### [facility] , Urea nitrogen [Mass/Vol] 12 mg/dL Normal 9-23 [facility] Comment on above: Performed By: #### C K, CRP, CMP, CBC, ESR, TSH3 #### [facility] [address] [place] [address] [place] #### ALDOLASE #### [facility] , Creatine Kinaseon 05-05-2022 CK [Catalytic activity/Vol] 1859 U/L High [facility] Comment on above: Result Comment: PERF ORMED BY: [place] [address] PATHOLOGIST FILM REPLACEMENT ORDERER LILLY LOTT M.D. Performed By: #### C K, CRP, CMP, CBC, ESR, TSH3 #### [facility] [address] [place] [address] [place] #### ALDOLASE #### [facility] , Creatine kinase [Enzymatic a ctivity/volume] in Serum or PlasmaOrdered By: Johann Dolan on 05-05-2022 CK [Catalytic activity/Vol] 1859 U/L [facility] Creatinine and Glomerular fi ltration rate.predicted panel (S/P/Bld)Ordered By: Johann Dolan on 05-05-2022 Creatinine [Mass/Vol] 0.66 mg/dL 0.44-1.03 [facility] Eosinophils Auto (Bld) [#/Vo l]Ordered By: Johann Dolan on 05-05-2022 Eosinophils (Bld) [#/Vol] 0.1 10*3/uL 0.0-0.45 [facility] Eosinophils/100 WBC Auto (Bl d)Ordered By: Johann Dolan on 05-05-2022 Eosinophils/100 WBC (Bld) 0.7 % . [facility] Erythrocyte Sedimentation Ra yvonne 05-05-2022 ESR (Bld) [Velocity] 15 mm/h Normal 0-29 [facility] Comment on above: Result Comment: PERF ORMED BY: [facility] [address] [place] [address] PATHOLOGIST FILM REPLACEMENT ORDERER LILLY LOTT M.D. Performed By: #### C K, CRP, CMP, CBC, ESR, TSH3 #### [address] #### ALDOLASE #### [facility] , Erythrocyte distribution wid th Auto (RBC) [Ratio]Ordered By: Johann Dolan on 05-05-2022 Erythrocyte distribution width (RBC) [Ratio] 13.9 % 11.9-15.3 [facility] Erythrocyte sedimentation ra te by Photometric methodOrdered By: Johann Dolan on 05-05-2022 ESR Photometric method (Bld) [Velocity] 15 mm/hr 0-29 [facility] Estimated glomerular filtrat ion rate (GFR) non- AmericanOrdered By: Johann Dolan on 05-05-2022 GFR/1.73 sq M.predicted among non-blacks MDRD (S/P/Bld) [Vol rate/Area] > 60 mL/Min [facility] Globulin Calc (S) [Mass/Vol] Ordered By: Johann Dolan on 05-05-2022 Globulin (S) [Mass/Vol] 2.4 g/dL [facility] Hematocrit Auto (Bld) [Volum e fraction]Ordered By: Johann Dolan on 05-05-2022 Hematocrit (Bld) [Volume fraction] 40.3 % 34.0-46.4 [facility] Hemoglobin [Mass/volume] in BloodOrdered By: Johann Dolan on 05-05-2022 Hemoglobin (Bld) [Mass/Vol] 13.1 g/dL 11.8-15.4 [facility] LC CRPon 05-05-2022 LC CRP, Quant <1 Normal 0-10 [facility] Comment on above: Result Comment: Perf ormed at: CB - [facility] [address] [id number] Demand Planning Manager: Reggie Lazcano PhD, Phone: [phone] PERFORMED BY: [place] [address] PATHOLOGIST FILM REPLACEMENT ORDERER LILLY LOTT M.D. Performed By: #### S OFSANDRA, COVID-19 KATELYN #### [address] Leukocytes [#/volume] correc marlen for nucleated erythrocytes in Blood by Automated counOrdered By: Johann Dolan on 05-05-2022 WBC corrected for nucl RBC Auto (Bld) [#/Vol] 7.5 10*3/uL 3.8-11.6 [facility] Lymphocytes Auto (Bld) [#/Vo l]Ordered By: Johann Dolan on 05-05-2022 Lymphocytes (Bld) [#/Vol] 1.7 10*3/uL 1.00-4.8 [facility] Lymphocytes/100 WBC Auto (Bl d)Ordered By: Johann Dolan on 05-05-2022 Lymphocytes/100 WBC (Bld) 22.1 % . [facility] MCH Auto (RBC) [Entitic mass ]Ordered By: Johann Dolan on 05-05-2022 MCH (RBC) [Entitic mass] 30.2 pg 24.7-34.3 [facility] MCHC Auto (RBC) [Mass/Vol]Or dered By: Johann Dolan on 05-05-2022 MCHC (RBC) [Mass/Vol] 32.6 g/dL 32.0-35.0 [facility] MCV Auto (RBC) [Entitic vol] Ordered By: Johann Dolan on 05-05-2022 MCV (RBC) [Entitic vol] 92.6 fL 80-100 [facility] Monocytes Auto (Bld) [#/Vol] Ordered By: Johann Dolan on 05-05-2022 Monocytes (Bld) [#/Vol] 0.3 10*3/uL 0.0-0.8 [facility] Monocytes/100 WBC Auto (Bld) Ordered By: Johann Dolan on 05-05-2022 Monocytes/100 WBC (Bld) 4.5 % . [facility] Myositis Panelon 05-05-2022 Myositis Panel Normal [facility] Comment on above: Result Comment: See report. Scanned copy available in EMR. PERFORMED BY: [facility] [address] [place] [address] PATHOLOGIST FILM REPLACEMENT ORDERER LILLY LOTT M.D. Performed By: #### S LAURA YADAV #### [facility] [address] Neutrophils Auto (Bld) [#/Vo l]Ordered By: Johann Dolan on 05-05-2022 Neutrophils (Bld) [#/Vol] 5.4 10*3/uL 1.8-7.7 [facility] Neutrophils/100 WBC Auto (Bl d)Ordered By: Johann Dolan on 05-05-2022 Neutrophils/100 WBC (Bld) 72.0 % . [facility] No Panel InformationOrdered By: Johann Dolan on 05-05-2022 Anti-Nuclear Antibody Comment 2 See comment . [facility] Comment on above: For more information about [...] titers Nucleosomes, Histones Drug-induced SLE Speckled Sm, NURSING FACULTY, SCL-70, SLE,MCTD,PSS (diffuse form), SS-A/SS-B Sjogrens Nucleolar SCL-70, PM-1/SCL High titers Scleroderma, PM/DM Centromere Centromere PSS (limited form) w/Crest syndrome variable Nuclear Dot Sp100,[id number] Primary Biliary Cirrhosis Nuclear GP210, Primary Biliary CirrhosisMembrane ban A,B,C Performed at: [facility] [id number] Director: Reggie Lazcano PhD, Phone: [phone] Myositis Autoantibodies See comment [facility] Comment on above: See report. Scanned copy available in EMR. Estimated GFR () > 60 mL/Min [facility] Comment on above: GFR estimated refere nce range: According to KDOQI guidelines, <60 ml/min/1.73m2 is sufficient to diagnose a patient with chronic kidney disease. Pharmacy Creatinine Clearance (Chem N/A [facility] Nucleated erythrocytes [Pres ence] in Blood by Automated countOrdered By: Johann Dolan on 05-05-2022 Nucleated RBC Auto Ql (Bld) 0.1 /100{WBC} 0-0.5 [facility] Platelet mean volume Auto (B ld) [Entitic vol]Ordered By: Johann Dolan on 05-05-2022 Platelet mean volume (Bld) [Entitic vol] 6.7 fL 6.3-10.7 [facility] Platelets Auto (Bld) [#/Vol] Ordered By: Johann Dolan on 05-05-2022 Platelets (Bld) [#/Vol] 379 10*3/uL 150-450 [facility] Protein [Mass/volume] in Ser um or PlasmaOrdered By: Johann Dolan on 05-05-2022 Protein [Mass/Vol] 7.0 g/dL 6.1-7.9 [facility] RBC Auto (Bld) [#/Vol]Ordere d By: Johann Dolan on 05-05-2022 RBC (Bld) [#/Vol] 4.35 10*6/uL 3.60-5.00 [facility] Serum angiotensin converting enzyme (JOS) measurementOrdered By: Johann Dolan on 05-05-2022 Angiotensin converting enzyme [Catalytic activity/Vol] U/L 14-82 [facility] Comment on above: Performed at: [place] [id number] Director: Reggie Lazcano PhD, Phone: [phone] Serum nuclear antibody titer Ordered By: Johann Dolan on 05-05-2022 Nuclear Ab (S) [Titer] Positive . [facility] Comment on above: Negative <1:80 Borde rline 1:80 Positive >1:80 Serum or plasma alanine gomez otransferase measurement without P-5'-P (enzymatic activiOrdered By: Johann Dolan on 05-05-2022 ALT No additional P-5'-P [Catalytic activity/Vol] 61 U/L 10-60 [facility] Serum or plasma albumin/glob ulin mass ratioOrdered By: Johann Dolan on 05-05-2022 Albumin/Globulin [Mass ratio] 1.9 {ratio} [facility] Serum or plasma alkaline rashawn sphatase measurement (enzymatic activity/volume)Ordered By: Johann Dolan on 05-05-2022 ALP [Catalytic activity/Vol] 61 U/L 32-92 [facility] Serum or plasma anion gap de terminationOrdered By: Johann Dolan on 05-05-2022 Anion gap [Moles/Vol] 17.3 mmol/L 6.0-15.0 [facility] Serum or plasma aspartate am inotransferase measurement (enzymatic activity/volume)Ordered By: Johann Dolan on 05-05-2022 AST [Catalytic activity/Vol] 39 U/L 10-42 [facility] Serum or plasma calcium jose urement (mass/volume)Ordered By: Johann Dolan on 05-05-2022 Calcium [Mass/Vol] 10.3 mg/dL 8.2-10.2 [facility] Serum or plasma chloride shay surement (moles/volume)Ordered By: Johann Dolan on 05-05-2022 Chloride [Moles/Vol] 94 mmol/L 95-114 [facility] Serum or plasma glucose jose urement (mass/volume)Ordered By: Johann Dolan on 05-05-2022 Glucose [Mass/Vol] 119 mg/dL 70-100 [facility] Comment on above: ADA recommended refe rence rangeRandom Glucose Reference Range is dependent on time and content of last meal. Glucose of more than 200 mg/dL in a nonstressed, ambulatory subject supports the diagnosis of Diabetes Mellitus. Serum or plasma potassium me asurement (moles/volume)Ordered By: Johann Dolan on 05-05-2022 Potassium [Moles/Vol] 4.7 mmol/L 3.5-5.1 [facility] Serum or plasma sodium measu rement (moles/volume)Ordered By: Johann Dolan on 05-05-2022 Sodium [Moles/Vol] 132 mmol/L 136-146 [facility] Serum or plasma total biliru bin measurement (mass/volume)Ordered By: Johann Dolan on 05-05-2022 Bilirubin [Mass/Vol] 0.6 mg/dL 0.3-1.2 [facility] Serum or plasma total carbon dioxide measurement (moles/volume)Ordered By: Johann Dolan on 05-05-2022 CO2 [Moles/Vol] 25.4 mmol/L 22.0-30.0 [facility] Serum or plasma urea nitroge n measurement (mass/volume)Ordered By: Johann Dolan on 05-05-2022 Urea nitrogen [Mass/Vol] 12 mg/dL 9- [facility] Serum speckled pattern antin uclear antibody (LUIS ENRIQUE) titerOrdered By: Johann Dolan on 05-05-2022 Speckled nuclear Ab pattern (S) [Titer] 1:80 . [facility] Comment on above: ICAP nomenclature: A C-2,4,5,29 TSH DL <= 0.005 mIU/L QnOrde red By: Johann Dolan on 05-05-2022 TSH Qn 1.42 m[IU]/L 0.45-5.33 [facility] Thyroid Stimulating Hormoneo n 05-05-2022 TSH Qn 1.42 m[IU]/L Normal 0.45-5.33 [facility] Comment on above: Result Comment: PERF ORMED BY: [place] [address] PATHOLOGIST FILM REPLACEMENT ORDERER LILLY LOTT M.D. Performed By: #### C K, CRP, CMP, CBC, ESR, TSH3 #### [address] #### ALDOLASE #### [facility] , WBC Auto (Bld) [#/Vol]Ordere d By: Johann Dolan on 05-05-2022 WBC (Bld) [#/Vol] 7.5 10*3/uL 3.8-11.6 [facility] UA RANDOM W/MICROSCOPICon BACTERIA TRACE Abnormal NONE SEEN [facility] Comment on above: Performed By: #### L IPID, BMP, NA #### [facility] [address] [place] [address] [address] Dilip Cartagena Bilirubin Ql (U) Negative Normal NEGATIVE [facility] Comment on above: Performed By: #### L IPID, BMP, NA #### [facility] [address] [place] [address] Dr. Dilip Cartagena CAST NONE SEEN Normal NONE SEEN [facility] Comment on above: Performed By: #### L IPID, BMP, NA #### [facility] [address] [place] [address] Dr. Dilip Cartagena Clarity (U) CLEAR Normal CLEAR [facility] Comment on above: Performed By: #### L IPID, BMP, NA #### [facility] [address] [place] [address] Dr. Dilip Cartagena Color (U) DK. ORANGE Abnormal YELLOW [facility] Comment on above: Performed By: #### L IPID, BMP, NA #### [facility] [address] [place] [address] Dr. Dilip Cartagena Crystals LM Nom (Urine sed) NONE SEEN Normal NONE SEEN [facility] [facility] Comment on above: Performed By: #### L IPID, BMP, NA #### [facility] [address] [place] [address] Dr. Dilip Cartagena Epithelial cells LM Ql (Urine sed) RARE Normal NONE SEEN /RARE [facility] Comment on above: Performed By: #### L IPID, BMP, NA #### [facility] [address] [place] [address] Dr. Dilip Cartagena Glucose Ql (U) Negative Normal NEGATIVE [facility] Comment on above: Performed By: #### L IPID, BMP, NA #### [facility] [address] [place] [address] Dr. Dilip Cartagena Hemoglobin Ql (U) Negative Normal NEGATIVE [facility] Comment on above: Performed By: #### L IPID, BMP, NA #### [facility] [address] [place] [address] Dr. Dilip Cartagena Ketones Ql (U) Negative Normal NEGATIVE [facility] Comment on above: Performed By: #### L IPID, BMP, NA #### [facility] [address] [place] [address] Dr. Dilip Cartagena LEUKOCYTES TRACE Abnormal NEGATIVE [facility] Comment on above: Performed By: #### L IPID, BMP, NA #### [facility] [address] [address] [address] Dilip Cartagena MUCOUS NONE SEEN Normal NONE SEEN [facility] Comment on above: Performed By: #### L IPID, BMP, NA #### [facility] [address] [place] [address] Dr. Dilip Cartagena Nitrite Ql (U) Positive Abnormal NEGATIVE [facility] Comment on above: Performed By: #### L IPID, BMP, NA #### [facility] [address] [address] [address] Dilip Cartagena pH (U) 7.5 [pH] Normal 5-9 [facility] Comment on above: Performed By: #### L IPID, BMP, NA #### [facility] [address] [place] [address] Dr. Dilip Cartagena RBC 0-2 Normal 0-2 [facility] Comment on above: Performed By: #### L IPID, BMP, NA #### [facility] [address] [place] [address] Dr. Dilip Cartagena SPEC GRAVITY <=1.005 Abnormal 1.005-<=1. 025 [facility] Comment on above: Performed By: #### L IPID, BMP, NA #### [facility] [address] [place] [address] Dr. Dilip Cartagena UA PROTEIN Negative Normal NEGATIVE/ TRACE [facility] Comment on above: Performed By: #### L IPID, BMP, NA #### [facility] [address] [place] [address] Dr. Dilip Cartagena Urobilinogen Qn (U) 1.0 {Hallie'U}/dL Normal 0.2 - 1. 0 [facility] Comment on above: Performed By: #### L IPID, BMP, NA #### [facility] [address] [place] [address] Dr. Dilip Cartagena WBC 0-2 Abnormal NONE SEEN The [facility] Comment on above: Performed By: #### L IPID, BMP, NA #### [facility] [address] [address] [address] Dilip Cartagena CKMBon 02-25-2022 CK.MB [Mass/Vol] 194.45 ng/mL Critically high <=3.60 T [facility] Comment on above: Performed By: #### L IPID, BMP, NA #### [facility] [address] [place] [address] Dr. Dilip Cartagena CPKon 02-25-2022 CK [Catalytic activity/Vol] 2549 U/L Critically high 26-192 [facility] Comment on above: Performed By: #### L IPID, BMP, NA #### [facility] [address] [place] [address] Dr. Dilip Cartagena GLYCOHEMOGLOBIN A1Con 2021 ADA RECOMMENDATION SEE BELOW Normal [facility] Comment on above: Result Comment: ADA RECOMMENDED LIMIT 4.0 - 6.0 ADA THERAPEUTIC TARGET < 7.0 ACTION SUGGESTED > 7.0 Performed By: #### U RCX #### [facility] [address] [place] [address] Dr. Dilip Cartagena Glucose [Mass/Vol] 143 mg/dL Normal [facility] Comment on above: Performed By: #### U RCX #### [facility] [address] [place] [address] Dr. Dilip Cartagena HbA1c (Bld) [Mass fraction] 6.6 % Critically high 4.5-6.2 [facility] Comment on above: Performed By: #### U RCX #### [facility] [address] [place] [address] Dr. Dilip Cartagena MYOGLOBINon 02-25-2022 REESE 1013 ng/mL Critically high 9-82 [facility] Comment on above: Performed By: #### L IPID, BMP, NA #### [facility] [address] [place] [address] Dr. Dilip Cartagena PROF CHEM 8 (BAS METB)on Anion gap [Moles/Vol] 10.3 mmol/L Normal Th [facility] Comment on above: Performed By: #### L IPID, BMP, NA #### [facility] [address] [address] [address] Dilip Cartagena Calcium [Mass/Vol] 9.5 mg/dL Normal 8.5-10.1 [facility] Comment on above: Performed By: #### L IPID, BMP, NA #### [facility] [address] [place] [address] Dr. Dilip Cartagena Chloride [Moles/Vol] 101 mmol/L Normal 98-107 [facility] Comment on above: Performed By: #### L IPID, BMP, NA #### [facility] [address] [place] [address] Dr. Dilip Cartagena CO2 [Moles/Vol] 29.1 mmol/L Normal 21.0-32.0 [facility] Comment on above: Performed By: #### L IPID, BMP, NA #### [facility] [address] [place] [address] Dr. Dilip Cartagena Creatinine [Mass/Vol] 0.66 mg/dL Normal 0.55-1.02 [facility] Comment on above: Performed By: #### L IPID, BMP, NA #### [facility] [address] [place] [address] Dr. Dilip Cartagena EGFR-AF BERMUDIAN >60 Normal >=60 [facility] Comment on above: Performed By: #### L IPID, BMP, NA #### [facility] [address] [place] [address] Dr. Dilip Cartagena EGFR-NON AF BERMUDIAN >60 Normal >=60 [facility] Comment on above: Performed By: #### L IPID, BMP, NA #### [facility] [address] [address] [address] Dilip Cartagena Glucose [Mass/Vol] 147 mg/dL Critically high 74-106 T [facility] Comment on above: Performed By: #### L IPID, BMP, NA #### [facility] [address] [place] [address] Dr. Dilip Cartagena Potassium [Moles/Vol] 4.4 mmol/L Normal 3.5-5.1 [facility] Comment on above: Performed By: #### L IPID, BMP, NA #### [facility] [address] [address] [address] Dilip Cartagena Sodium [Moles/Vol] 136 mmol/L Normal 136-145 [facility] Comment on above: Performed By: #### L IPID, BMP, NA #### [facility] [address] [address] [address] Dilip Cartagena Urea nitrogen [Mass/Vol] 17.0 mg/dL Normal 7.0-18.0 [facility] Comment on above: Performed By: #### L IPID, BMP, NA #### [facility] [address] [place] [address] Dr. Dilip Cartagena Urea nitrogen/Creatinine [Mass ratio] 25.8 mg/mg Normal [facility] Comment on above: Performed By: #### L IPID, BMP, NA #### [facility] [address] [place] [address] Dr. Dilip Cartagena US BEV DOP LEG [...] ERIC BERRY Date: 2022-02-25 15:50 Normal [facility] CULTURE URINEon 02-11-2022 CULTURE URINE Culture Observations : LIGHT GROWTH OF MIXED GENITAL JAVON. NO POTENTIAL PATHOGENS SEEN. Normal [facility] Comment on above: Performed By: #### U RCX #### [facility] [address] [place] [address] Dr. Dilip Cartagena UA RANDOM W/MICROSCOPICon BACTERIA TRACE Abnormal NONE SEEN The [facility] Comment on above: Performed By: #### L IPID, BMP, NA #### [facility] [address] [place] [address] Dr. Dilip Cartagena Bilirubin Ql (U) Negative Normal NEGATIVE [facility] Comment on above: Performed By: #### L IPID, BMP, NA #### [facility] [address] [place] [address] Dr. Dilip Cartagena CAST NONE SEEN Normal NONE SEEN [facility] Comment on above: Performed By: #### L IPID, BMP, NA #### [facility] [address] [place] [address] Dr. Dilip Cartagena Clarity (U) CLEAR Normal CLEAR [facility] Comment on above: Performed By: #### L IPID, BMP, NA #### [facility] [address] [place] [address] Dr. Dilip Cartagena Color (U) DK. ORANGE Abnormal YELLOW [facility] Comment on above: Performed By: #### L IPID, BMP, NA #### [facility] [address] [place] [address] Dr. Dilip Cartagena Crystals LM Nom (Urine sed) NONE SEEN Normal NONE SEEN [facility] Comment on above: Performed By: #### L IPID, BMP, NA #### [facility] [address] [place] [address] Dr. Dilip Cartagena Epithelial cells LM Ql (Urine sed) FEW Abnormal NONE SEEN /RARE [facility] Comment on above: Performed By: #### L IPID, BMP, NA #### [facility] [address] [place] [address] Dr. Dilip Cartagena Glucose Ql (U) Negative Normal NEGATIVE [facility] Comment on above: Performed By: #### L IPID, BMP, NA #### [facility] [address] [place] [address] Dr. Dilip Cartagena Hemoglobin Ql (U) Negative Normal NEGATIVE [facility] Comment on above: Performed By: #### L IPID, BMP, NA #### [facility] [address] [place] [address] Dr. Dilip Cartagena Ketones Ql (U) Negative Normal NEGATIVE [facility] Comment on above: Performed By: #### L IPID, BMP, NA #### [facility] [address] [place] [address] Dr. Dilip Cartagena LEUKOCYTES Negative Normal NEGATIVE [facility] Comment on above: Performed By: #### L IPID, BMP, NA #### [facility] [address] [place] [address] Dr. Dilip Cartagena MUCOUS NONE SEEN Normal NONE SEEN [facility] Comment on above: Performed By: #### L IPID, BMP, NA #### [facility] [address] [place] [address] Dr. Dilip Cartagena Nitrite Ql (U) Positive Abnormal NEGATIVE [facility] Comment on above: Performed By: #### L IPID, BMP, NA #### [facility] [address] [place] [address] Dr. Dilip Cartagena pH (U) 7.0 [pH] Normal 5-9 [facility] Comment on above: Performed By: #### L IPID, BMP, NA #### [facility] [address] [place] [address] Dr. Dilip Cartagena RBC 0-2 Normal 0-2 [facility] Comment on above: Performed By: #### L IPID, BMP, NA #### [facility] [address] [place] [address] Dr. Dilip Cartagena SPEC GRAVITY 1.010 Normal 1.005-<=1. 025 [facility] Comment on above: Performed By: #### L IPID, BMP, NA #### [facility] [address] [place] [address] Dr. Dilip Cartagena UA PROTEIN Negative Normal NEGATIVE/ TRACE [facility] Comment on above: Performed By: #### L IPID, BMP, NA #### [facility] [address] [place] [address] Dr. Dilip Cartagena Urobilinogen Qn (U) 1.0 {Hallie'U}/dL Normal 0.2 - 1. 0 [facility] Comment on above: Performed By: #### L IPID, BMP, NA #### [facility] [address] [place] [address] Dr. Dilip Cartagena WBC 0-2 Abnormal NONE SEEN [facility] Comment on above: Performed By: #### L IPID, BMP, NA #### [facility] [address] [place] [address] Dr. Dilip Cartagena LUIS ENRIQUE by IFAon 02-03-2022 Antinuclear Antibodies, IFA Positive Abnormal [facility] Comment on above: Result Comment: Nega tive <1:80 Borderline 1:80 Positive >1:80 Performed By: #### U RCX #### [facility] [address] [place] [address] Dr. Dilip Cartagena Centriole Pattern Normal [facility] Comment on above: Performed By: #### U RCX #### [facility] [address] [place] [address] Dr. Dilip Cartagena Centromere Pattern Normal [facility] Comment on above: Performed By: #### U RCX #### [facility] [address] [place] [address] Dr. Dilip Cartagena Homogeneous Pattern 1:80 Normal [facility] Comment on above: Result Comment: ICAP nomenclature: AC-1 Performed By: #### U RCX #### [facility] [address] [place] [address] Dr. Dilip Cartagena Midbody Pattern Normal [facility] Comment on above: Performed By: #### U RCX #### [facility] [address] [place] [address] Dr. Dilip Cartagena Note: Comment Normal [facility] Comment on above: Result Comment: For [...] titers Nucleosomes, Histones Drug-induced SLE Speckled Sm, NURSING FACULTY, SCL-70, SLE,MCTD,PSS (diffuse form), SS-A/SS-B Sjogrens Nucleolar SCL-70, PM-1/SCL High titers Scleroderma, PM/DM Centromere Centromere PSS (limited form) w/Crest syndrome variable Nuclear Dot [id number] Primary Biliary Cirrhosis Nuclear GP210, Primary Biliary Cirrhosis Membrane ban A,B,C Performed By: #### U RCX #### [facility] [address] [address] [address] Dilip Cartagena Nuclear Dot Pattern Normal [facility] Comment on above: Performed By: #### U RCX #### [facility] [address] [address] [address] Dilip Cartagena Nuclear Membrane Pattern Normal [facility] Comment on above: Performed By: #### U RCX #### [facility] [address] [address] [address] Dilip Cartagena Nucleolar Pattern Normal [facility] Comment on above: Performed By: #### U RCX #### [facility] [address] [place] [address] Dr. Dilip Cartagena PCNA Pattern Normal [facility] Comment on above: Performed By: #### U RCX #### [facility] [address] [place] [address] Dr. Dilip Cartagena Speckled Pattern Normal [facility] Comment on above: Performed By: #### U RCX #### [facility] [address] [place] [address] Dr. Dilip Cartagena Spindle Apparatus Pattern Normal [facility] Comment on above: Performed By: #### U RCX #### [facility] [address] [place] [address] Dr. Dilip Cartagena ANTISTREPTOLYSIN O AB (ASO)o n 01-31-2022 Antistreptolysin O Ab 25.1 IU/mL Normal 0.0-200.0 [facility] Comment on above: Performed By: #### L IPID, BMP, NA #### [facility] [address] [place] [address] Dr. Dilip Cartagena RHEUMATOID FACTORon 02-01-20 RA Latex Turbid. 10.1 IU/mL Normal <14.0 [facility] Comment on above: Performed By: #### U RCX #### [facility] [address] [place] [address] Dr. Dilip Cartagena CKMBon 01-30-2022 CK.MB [Mass/Vol] 227.84 ng/mL Critically high <=3.60 T [facility] Comment on above: Performed By: #### L IPID, BMP, NA #### [facility] [address] [place] [address] Dr. Dilip Cartagena CPKon 01-30-2022 CK [Catalytic activity/Vol] 3698 U/L Critically high 26-192 [facility] Comment on above: Performed By: #### L IPID, BMP, NA #### [facility] [address] [place] [address] Dr. Dilip Cartagena CRPon 01-30-2022 CRP [Mass/Vol] mg/L Normal <=1.0 [facility] Comment on above: Performed By: #### L IPID, BMP, NA #### [facility] [address] [place] [address] Dr. Dilip Cartagena MYOGLOBINon 01-30-2022 REESE 2773 ng/mL Critically high 9-82 [facility] Comment on above: Performed By: #### L IPID, BMP, NA #### [facility] [address] [place] [address] Dr. Dilip Cartagena SED RATE WESTERGRENon 2021 SED RATE 20 mm/hr Normal <=30 [facility] Comment on above: Performed By: #### U RCX #### [facility] [address] [place] [address] Dr. Dilip Cartagena URIC ACID SERUMon 01-30-2022 Urate [Mass/Vol] 5.3 mg/dL Normal 2.6-6.0 [facility] Comment on above: Performed By: #### L IPID, BMP, NA #### [facility] [address] [place] [address] Dr. Dilip Cartagena ALDOLASEon 01-28-2022 Aldolase 27.1 U/L Critically high 3.3-10.3 [facility] Comment on above: Performed By: #### U RCX #### [facility] [address] [place] [address] Dr. Dilip Cartagena CKMBon 01-26-2022 CK.MB [Mass/Vol] 244.24 ng/mL Critically high <=3.60 T he [facility] Comment on above: Performed By: #### U RCX #### [facility] [address] [place] [address] Dr. Dilip Cartagena CPKon 01-26-2022 CK [Catalytic activity/Vol] 4430 U/L Critically high 26-192 [facility] Comment on above: Performed By: #### L IPID, BMP, NA #### [facility] [address] [place] [address] Dr. Dilip Cartagena CREATININEon 01-26-2022 Creatinine [Mass/Vol] 0.76 mg/dL Normal 0.55-1.02 [facility] Comment on above: Performed By: #### L IPID, BMP, NA #### [facility] [address] [place] [address] Dr. Dilip Cartagena EGFR-AF BERMUDIAN >60 Normal >=60 [facility] Comment on above: Performed By: #### L IPID, BMP, NA #### [facility] [address] [place] [address] Dr. Dilip Cartagena EGFR-NON AF BERMUDIAN >60 Normal >=60 [facility] Comment on above: Performed By: #### L IPID, BMP, NA #### [facility] [address] [place] [address] Dr. Dilip Cartagena MYOGLOBINon 01-26-2022 REESE 2514 ng/mL Critically high 9-82 [facility] Comment on above: Performed By: #### L IPID, BMP, NA #### [facility] [address] [place] [address] Dr. Dilip Cartagena PROF CHEM 8 (BAS METB)on Anion gap [Moles/Vol] 9.4 mmol/L Normal [facility] Comment on above: Performed By: #### L IPID, BMP, NA #### [facility] [address] [place] [address] Dr. Dilip Cartagena Calcium [Mass/Vol] 8.8 mg/dL Normal 8.5-10.1 [facility] Comment on above: Performed By: #### L IPID, BMP, NA #### [facility] [address] [place] [address] Dr. Dilip Cartagena Chloride [Moles/Vol] 104 mmol/L Normal 98-107 [facility] Comment on above: Performed By: #### L IPID, BMP, NA #### [facility] [address] [place] [address] Dr. Dilip Cartagena CO2 [Moles/Vol] 27.4 mmol/L Normal 21.0-32.0 [facility] Comment on above: Performed By: #### L IPID, BMP, NA #### [facility] [address] [place] [address] Dr. Dilip Cartagena Glucose [Mass/Vol] 141 mg/dL Critically high 74-106 [facility] Comment on above: Performed By: #### L IPID, BMP, NA #### [facility] [address] [place] [address] Dr. Dilip Cartagena Potassium [Moles/Vol] 4.8 mmol/L Normal 3.5-5.1 [facility] Comment on above: Performed By: #### L IPID, BMP, NA #### [facility] [address] [place] [address] Dr. Dilip Cartagena Sodium [Moles/Vol] 136 mmol/L Normal 136-145 [facility] Comment on above: Performed By: #### L IPID, BMP, NA #### [facility] [address] [place] [address] Dr. Dilip Cartagena Urea nitrogen [Mass/Vol] 15.0 mg/dL Normal 7.0-18.0 [facility] Comment on above: Performed By: #### L IPID, BMP, NA #### [facility] [address] [place] [address] Dr. Dilip Cartagena Urea nitrogen/Creatinine [Mass ratio] 19.7 mg/mg Normal [facility] Comment on above: Performed By: #### L IPID, BMP, NA #### [facility] [address] [place] [address] Dr. Dilip Cartagena US BEV DOP LEG [...] ERIC BERRY Date: 2022-01-26 18:51 Normal [facility] CULTURE BLOODon 01-21-2022 Microscopic examination [...] F Oxacillin 1 R F Normal [facility] Comment on above: Performed By: #### L IPID, BMP, NA #### [facility] [address] [place] [address] Dr. Dilip Cartagena BNPon 01-17-2022 Natriuretic peptide B (Bld) [Mass/Vol] 792.0 pg/mL Normal <=1,800.0 [facility] Comment on above: Performed By: #### P OCGLUC #### [facility] [address] [place] [address] Dr. Dilip Cartagena CARDIAC JON ADMITon 022 CK [Catalytic activity/Vol] 2872 U/L Critically high 26-192 [facility] Comment on above: Performed By: #### U RCX #### [facility] [address] [place] [address] Dr. Dilip Cartagena CK.MB [Mass/Vol] 143.67 ng/mL Critically high <=3.60 T [facility] Comment on above: Performed By: #### U RCX #### [facility] [address] [place] [address] Dr. Dilip Cartagena HSTROP 25.6 pg/mL Normal 4.0-51.3 [facility] Comment on above: Result Comment: CUT- OFF POINTS HAVE BEEN ESTABLISHED BASED ON THE FOURTH UNIVERSAL DEFINITIONS OF MYOCARDIAL INFARCTION. THE UPPER REFERENCE LIMIT (URL) OF TROPONIN, DEFINED THE 99TH PERCENTILE OF cTnI DISTRIBUTION IN A REFERENCE POPULATION, HAS BEEN CONFIRMED THE DECISION THRESHOLD FOR [place] DIAGNOSIS. Performed By: #### U RCX #### [facility] [address] [place] [address] Dr. Dilip Cartagena REESE 1364 ng/mL Critically high 9-82 [facility] Comment on above: Performed By: #### U RCX #### [facility] [address] [place] [address] Dr. Dilip Cartaegna CBC AUTO DIFFon 01-17-2022 BASO # 0.0 103/ul Normal 0.0-0.1 [facility] Comment on above: Performed By: #### U RCX #### [facility] [address] [place] [address] Dr. Dilip Cartagena Basophils/100 WBC (Bld) 0.4 % Normal 0.2-2.0 [facility] Comment on above: Performed By: #### U RCX #### [facility] [address] [place] [address] Dr. Dilip Cartagena EO # 0.1 103/ul Normal 0.0-0.7 [facility] Comment on above: Performed By: #### U RCX #### [facility] [address] [place] [address] Dr. Dilip Cartagena Eosinophils/100 WBC (Bld) 1.8 % Normal 0.9-7.0 [facility] Comment on above: Performed By: #### U RCX #### [facility] [address] [place] [address] Dr. Dilip Cartagena Erythrocyte distribution width (RBC) [Ratio] 14.0 % Normal 11.0-15.0 [facility] Comment on above: Performed By: #### U RCX #### [facility] [address] [place] [address] Dr. Dilip Cartagena Hematocrit (Bld) [Volume fraction] 36.0 % Normal 36.0-48.0 [facility] Comment on above: Performed By: #### U RCX #### [facility] [address] [place] [address] Dr. Dilip Cartagena Hemoglobin (Bld) [Mass/Vol] 11.4 g/dL Critically low 12.0-16.0 [facility] Comment on above: Performed By: #### U RCX #### [facility] [address] [place] [address] Dr. Dilip Cartagena IG # 0.06 10e3/ul Critically high 0.00-0.03 [facility] Comment on above: Performed By: #### U RCX #### [facility] [address] [place] [address] Dr. Dilip Cartagena IG % 0.9 % Critically high 0.0-0.5 [facility] Comment on above: Performed By: #### U RCX #### [facility] [address] [place] [address] Dr. Dilip Cartagena LYMPH # 2.1 103/ul Normal 1.2-3.8 [facility] Comment on above: Performed By: #### U RCX #### [facility] [address] [place] [address] Dr. Dilip Cartagena Lymphocytes/100 WBC (Bld) 30.6 % Normal 20.5-60.0 [facility] Comment on above: Performed By: #### U RCX #### [facility] [address] [place] [address] Dr. Dilip Cartagena MANUAL DIFF REQ NO Normal [facility] Comment on above: Performed By: #### U RCX #### [facility] [address] [address] [address] Dilip Cartagena MCH (RBC) [Entitic mass] 30.4 pg Normal 26.7-34.0 [facility] Comment on above: Performed By: #### U RCX #### [facility] [address] [place] [address] Dr. Dilip Cartagena MCHC (RBC) [Mass/Vol] 31.7 g/dL Normal 29.9-35.2 [facility] Comment on above: Performed By: #### U RCX #### [facility] [address] [place] [address] Dr. Dilip Cartagena MCV (RBC) [Entitic vol] 96.0 fL Normal 81.0-99.0 [facility] Comment on above: Performed By: #### U RCX #### [facility] [address] [place] [address] Dr. Dilip Cartagena MONO # 0.5 103/ul Normal 0.3-0.8 [facility] Comment on above: Performed By: #### U RCX #### [facility] [address] [place] [address] Dr. Dilip Cartagena Monocytes/100 WBC (Bld) 7.3 % Normal 1.7-12.0 [facility] Comment on above: Performed By: #### U RCX #### [facility] [address] [place] [address] Dr. Dilip Cartagena NEUT # 4.0 103/ul Normal 1.4-6.5 [facility] Comment on above: Performed By: #### U RCX #### [facility] [address] [place] [address] Dr. Dilip Cartagena Neutrophils/100 WBC (Bld) 59.0 % Normal 43.0-75.0 [facility] Comment on above: Performed By: #### U RCX #### [facility] [address] [place] [address] Dr. Dilip Cartagena Platelet mean volume (Bld) [Entitic vol] 9.2 fL Critically low 9.5-13.5 [facility] Comment on above: Performed By: #### U RCX #### [facility] [address] [address] [address] Dilip Cartagena PLT 285 103/ul Normal 150-450 [facility] Comment on above: Performed By: #### U RCX #### [facility] [address] [address] [address] Dilip Cartagena RBC 3.75 106/ul Critically low 4.20-5.40 [facility] Comment on above: Performed By: #### U RCX #### [facility] [address] [place] [address] Dr. Dilip Cartagena WBC 6.7 103/ul Normal 4.0-11.0 [facility] Comment on above: Performed By: #### U RCX #### [facility] [address] [place] [address] Dr. Dilip Cartagena POINT OF CARE GLUCOSEon 01-03 Glucose [Mass/Vol] 137 mg/dL Critically high 74-106 [facility] Comment on above: Performed By: #### L IPID, BMP, NA #### [facility] [address] [place] [address] Dr. Dilip Cartagena Glucose [Mass/Vol] 125 mg/dL Critically high 74-106 [facility] Comment on above: Performed By: #### U RCX #### [facility] [address] [place] [address] Dr. Dilip Cartagena PROF 14(COMP METB)on 022 Albumin [Mass/Vol] 2.9 g/dL Critically low 3.4-5.0 [facility] Comment on above: Performed By: #### U RCX #### [facility] [address] [place] [address] Dr. Dilip Cartagena Albumin/Globulin [Mass ratio] 0.9 {ratio} Normal [facility] Comment on above: Performed By: #### U RCX #### [facility] [address] [place] [address] Dr. Dilip Cartagena ALP [Catalytic activity/Vol] 47 U/L Normal 46-116 [facility] Comment on above: Performed By: #### U RCX #### [facility] [address] [address] [address] Dilip Cartagena ALT [Catalytic activity/Vol] 138 U/L Critically high 14-59 [facility] Comment on above: Performed By: #### U RCX #### [facility] [address] [address] [address] Dilip Cartagena Anion gap [Moles/Vol] 11.4 mmol/L Normal [facility] Comment on above: Performed By: #### U RCX #### [facility] [address] [address] [address] Dilip Cartagena AST [Catalytic activity/Vol] 70 U/L Critically high 15-37 [facility] Comment on above: Performed By: #### U RCX #### [facility] [address] [place] [address] Dr. Dilip Cartagena Bilirubin [Mass/Vol] 0.4 mg/dL Normal 0.2-1.0 [facility] Comment on above: Performed By: #### U RCX #### [facility] [address] [address] [address] Dilip Cartagena Calcium [Mass/Vol] 8.4 mg/dL Critically low 8.5-10.1 [facility] Comment on above: Performed By: #### U RCX #### [facility] [address] [address] [address] Dilip Cartagena Chloride [Moles/Vol] 103 mmol/L Normal 98-107 [facility] Comment on above: Performed By: #### U RCX #### [facility] [address] [address] [address] Dilip Cartagena CO2 [Moles/Vol] 23.7 mmol/L Normal 21.0-32.0 [facility] Comment on above: Performed By: #### U RCX #### [facility] [address] [address] [address] Dilip Cartagena Creatinine [Mass/Vol] 0.66 mg/dL Normal 0.55-1.02 [facility] Comment on above: Performed By: #### U RCX #### [facility] [address] [address] [address] Dilip Cartagena EGFR-AF BERMUDIAN >60 Normal >=60 [facility] Comment on above: Performed By: #### U RCX #### [facility] [address] [address] [address] Dilip Cartagena EGFR-NON AF BERMUDIAN >60 Normal >=60 [facility] Comment on above: Performed By: #### U RCX #### [facility] [address] [address] [address] Dilip Cartagena Globulin (S) [Mass/Vol] 3.2 g/dL Normal [facility] Comment on above: Performed By: #### U RCX #### [facility] [address] [address] [address] Dilip Cartagena Glucose [Mass/Vol] 111 mg/dL Critically high 74-106 [facility] Comment on above: Performed By: #### U RCX #### [facility] [address] [address] [address] Dilip Cartagena Potassium [Moles/Vol] 5.1 mmol/L Normal 3.5-5.1 [facility] Comment on above: Performed By: #### U RCX #### [facility] [address] [address] [address] Dilip Cartagena Protein [Mass/Vol] 6.1 g/dL Critically low 6.4-8.2 [facility] Comment on above: Performed By: #### U RCX #### [facility] [address] [address] [address] Dilip Cartagena Sodium [Moles/Vol] 133 mmol/L Critically low 136-145 [facility] Comment on above: Performed By: #### U RCX #### [facility] [address] [address] [address] Dilip Cartagena Urea nitrogen [Mass/Vol] 15.0 mg/dL Normal 7.0-18.0 [facility] Comment on above: Performed By: #### U RCX #### [facility] [address] [place] [address] Dr. Dilip Cartagena Urea nitrogen/Creatinine [Mass ratio] 22.7 mg/mg Normal [facility] Comment on above: Performed By: #### U RCX #### [facility] [address] [place] [address] Dr. Dilip Cartagena T3, TOTAL (TRIIODOTHYRONINE) on 01-17-2022 T3, TOTAL 105 ng/dL Normal 71-180 [facility] Comment on above: Performed By: #### L IPID, BMP, NA #### [facility] [address] [place] [address] Dr. Dilip aCrtagena AMYLASEon 01-16-2022 Amylase [Catalytic activity/Vol] 42 U/L Normal 25-115 [facility] Comment on above: Performed By: #### L IPID, BMP, NA #### [facility] [address] [place] [address] Dr. Dilip Cartagena Amylase [Catalytic activity/Vol] 55 U/L Normal 25-115 [facility] Comment on above: Performed By: #### U RCX #### [facility] [address] [place] [address] Dr. Dilip Cartagena Amylase [Catalytic activity/Vol] 52 U/L Normal 25-115 [facility] Comment on above: Performed By: #### P OCGLUC #### [facility] [address] [place] [address] Dr. Dilip Cartagena BLOOD CULTURE ID PANELon A. baumannii Not detected Normal NOT DETECTED [facility] Comment on above: Performed By: #### L IPID, BMP, NA #### [facility] [address] [place] [address] Dr. Dilip Cartagena Bacteriodes fragilis Not detected Normal NOT DETECTED [facility] Comment on above: Performed By: #### L IPID, BMP, NA #### [facility] [address] [place] [address] Dr. Dilip Cartagena BCID CONTROLS PASSED Normal [facility] Comment on above: Performed By: #### L IPID, BMP, NA #### [facility] [address] [address] [address] Dilip Cartagena BCIDBTHD BLOOD CULTURE BOTTLE INFORMATION [facility] Comment on above: Performed By: #### L IPID, BMP, NA #### [facility] [address] [place] [address] Dr. Dilip Cartagena BCIDHD1 ANTIMICROBIAL RESIST ANCE GENES [facility] Comment on above: Performed By: #### L IPID, BMP, NA #### [facility] [address] [address] [address] Dilip Cartagena BCIDHD2 SEE BELOW [facility] Comment on above: Result Comment: Note : Antimicrobial resitance can occur via multiple mechanisms. A Not Detected result for the [employer] antomicrobial resistance gene assays does not indicate antimicrobial susceptibility. Subculturing is required for species identification and susceptibility testing of isolates. Performed By: #### L IPID, BMP, NA #### [facility] [address] [place] [address] Dr. Dilip Cartagena BCIDHD3 Positive [facility] Comment on above: Performed By: #### L IPID, BMP, NA #### [facility] [address] [place] [address] Dr. Dilip Cartagena BCIDHD4 Negative [facility] Comment on above: Performed By: #### L IPID, BMP, NA #### [facility] [address] [place] [address] Dr. Dilip Cartagena BCIDHD5 YEAST Normal [facility] Comment on above: Performed By: #### L IPID, BMP, NA #### [facility] [address] [place] [address] Dr. Dilip Cartagena Bottle Set: Set 1 [facility] Comment on above: Performed By: #### L IPID, BMP, NA #### [facility] [address] [place] [address] Dr. Dilip Cartagena Bottle: Aerobic [facility] Comment on above: Performed By: #### L IPID, BMP, NA #### [facility] [address] [place] [address] Dr. Yilan Cartagena C. neoformans/gattii Not detected Normal NOT DETECTED [facility] Comment on above: Performed By: #### L IPID, BMP, NA #### [facility] [address] [place] [address] Dr. Dilip Cartagena Neyda albicans Not detected Normal NOT DETECTED [facility] Comment on above: Performed By: #### L IPID, BMP, NA #### [facility] [address] [place] [address] Dr. Dilip Cartagena Neyda auris Not detected Normal NOT DETECTED [facility] Comment on above: Performed By: #### L IPID, BMP, NA #### [facility] [address] [place] [address] Dr. Dilip Cartagena Neyda glabrata Not detected Normal NOT DETECTED [facility] Comment on above: Performed By: #### L IPID, BMP, NA #### [facility] [address] [place] [address] Dr. Dilip Cartagena Neyda Krusei Not detected Normal NOT DETECTED [facility] Comment on above: Performed By: #### L IPID, BMP, NA #### [facility] [address] [place] [address] Dr. Dilip Cartagena Neyda Parapsilosis Not detected Normal NOT DETECTED [facility] Comment on above: Performed By: #### L IPID, BMP, NA #### [facility] [address] [place] [address] Dr. Dilip Cartagena Neyda Tropicalis Not detected Normal NOT DETECTED [facility] Comment on above: Performed By: #### L IPID, BMP, NA #### [facility] [address] [place] [address] Dr. Dilip Cartagena CTX-M Resistant Gene Not Applicable Normal NOT DETECTED [facility] Comment on above: Performed By: #### L IPID, BMP, NA #### [facility] [address] [place] [address] Dr. Dilip Cartagena E. Cloacae complex Not detected Normal NOT DETECTED [facility] Comment on above: Performed By: #### L IPID, BMP, NA #### [facility] [address] [place] [address] Dr. Dilip Cartagena E. faecalis Not detected Normal NOT DETECTED [facility] Comment on above: Performed By: #### L IPID, BMP, NA #### [facility] [address] [place] [address] Dr. Dilip Cartagena E. faecium Not detected Normal NOT DETECTED [facility] Comment on above: Performed By: #### L IPID, BMP, NA #### [facility] [address] [place] [address] Dr. Dilip Cartagena Enterobacteriaceae Not detected Normal NOT DETECTED [facility] Comment on above: Performed By: #### L IPID, BMP, NA #### [facility] [address] [place] [address] Dr. Dilip Cartagena Escherichia coli Not detected Normal NOT DETECTED [facility] Comment on above: Performed By: #### L IPID, BMP, NA #### [facility] [address] [place] [address] Dr. Dilip Cartagena H. influenzae Not detected Normal NOT DETECTED [facility] Comment on above: Performed By: #### L IPID, BMP, NA #### [facility] [address] [place] [address] Dr. Dilip Cartagena IMP Resistant Gene Not Applicable Normal NOT DETECTED [facility] Comment on above: Performed By: #### L IPID, BMP, NA #### [facility] [address] [place] [address] Dr. Dilip Cartagena K. oxytoca Not detected Normal NOT DETECTED [facility] Comment on above: Performed By: #### L IPID, BMP, NA #### [facility] [address] [place] [address] Dr. Dilip Cartagena K. pneumoniae Not detected Normal NOT DETECTED [facility] Comment on above: Performed By: #### L IPID, BMP, NA #### [facility] [address] [place] [address] Dr. Dilip Cartagena Klebsiella aerogenes Not detected Normal NOT DETECTED [facility] Comment on above: Performed By: #### L IPID, BMP, NA #### [facility] [address] [place] [address] Dr. Dilip Cartagena KPC Resistant Gene Not Applicable Normal NOT DETECTED [facility] Comment on above: Performed By: #### L IPID, BMP, NA #### [facility] [address] [place] [address] Dr. Dilip Cartagena List. monocytogenes Not detected Normal NOT DETECTED [facility] Comment on above: Performed By: #### L IPID, BMP, NA #### [facility] [address] [place] [address] Dr. Dilip Cartagena Mcr-1 Resistant Gene Not Applicable Normal NOT DETECTED [facility] Comment on above: Performed By: #### L IPID, BMP, NA #### [facility] [address] [place] [address] Dr. Dilip Cartagena mecA/C Not Applicable Normal NOT DETECTED [facility] Comment on above: Performed By: #### L IPID, BMP, NA #### [facility] [address] [place] [address] Dr. Dilip Cartagena mecA/C MREJ Not Applicable Normal NOT DETECTED [facility] Comment on above: Performed By: #### L IPID, BMP, NA #### [facility] [address] [place] [address] Dr. Dilip Cartagena N. meningitidis Not detected Normal NOT DETECTED [facility] Comment on above: Performed By: #### L IPID, BMP, NA #### [facility] [address] [place] [address] Dr. Dilip Cartagena NDM Resistant Gene Not Applicable Normal NOT DETECTED [facility] Comment on above: Performed By: #### L IPID, BMP, NA #### [facility] [address] [place] [address] Dr. Dilip Cartagena Oxa-48-like Not Applicable Normal NOT DETECTED [facility] Comment on above: Performed By: #### L IPID, BMP, NA #### [facility] [address] [place] [address] Dr. Dilip Cartagena Proteus Not detected Normal NOT DETECTED [facility] Comment on above: Performed By: #### L IPID, BMP, NA #### [facility] [address] [place] [address] Dr. Dilip Cartagena Pseud. aeruginosa Not detected Normal NOT DETECTED [facility] Comment on above: Performed By: #### L IPID, BMP, NA #### [facility] [address] [place] [address] Dr. Dilip Cartagena S. maltophilia Not detected Normal NOT DETECTED [facility] Comment on above: Performed By: #### L IPID, BMP, NA #### [facility] [address] [place] [address] Dr. Dilip Cartagena Salmonella Not detected Normal NOT DETECTED [facility] Comment on above: Performed By: #### L IPID, BMP, NA #### [facility] [address] [place] [address] Dr. Dilip Cartagena Seratia marcescens Not detected Normal NOT DETECTED [facility] Comment on above: Performed By: #### L IPID, BMP, NA #### [facility] [address] [place] [address] Dr. Dilip Cartagena Site: left arm Normal [facility] Comment on above: Performed By: #### L IPID, BMP, NA #### [facility] [address] [place] [address] Dr. Dilip Cartagena Staph. aureus Not detected Normal NOT DETECTED [facility] Comment on above: Performed By: #### L IPID, BMP, NA #### [facility] [address] [place] [address] Dr. Dilip Cartagena Staph. epidermidis Not detected Normal NOT DETECTED [facility] Comment on above: Performed By: #### L IPID, BMP, NA #### [facility] [address] [place] [address] Dr. Dilip [place] Stapkurt. lugdunensis Not detected Normal NOT DETECTED [facility] Comment on above: Performed By: #### L IPID, BMP, NA #### [facility] [address] [place] [address] Dr. Dilip Cartagena Staphylococcus Detected Abnormal NOT DETECTED [facility] Comment on above: Performed By: #### L IPID, BMP, NA #### [facility] [address] [place] [address] Dr. Dilip Cartagena Strep. agalactiae Not detected Normal NOT DETECTED [facility] Comment on above: Performed By: #### L IPID, BMP, NA #### [facility] [address] [place] [address] Dr. Dilip Cartagena Strep. pneumoniae Not detected Normal NOT DETECTED [facility] Comment on above: Performed By: #### L IPID, BMP, NA #### [facility] [address] [place] [address] Dr. Dilip Cartagena Strep. pyogenes Not detected Normal NOT DETECTED [facility] Comment on above: Performed By: #### L IPID, BMP, NA #### [facility] [address] [place] [address] Dr. Dilip Cartagena Streptococcus Not detected Normal NOT DETECTED [facility] Comment on above: Performed By: #### L IPID, BMP, NA #### [facility] [address] [place] [address] Dr. Dilip Cartagena Kenyetta/Bere Resist. Gene Not Applicable Normal NOT DETECTED [facility] Comment on above: Performed By: #### L IPID, BMP, NA #### [facility] [address] [place] [address] Dr. Dilip Cartagena VIM Resistant Gene Not Applicable Normal NOT DETECTED [facility] Comment on above: Performed By: #### L IPID, BMP, NA #### [facility] [address] [place] [address] Dr. Dilip Cartagena BNPon 01-16-2022 Natriuretic peptide B (Bld) [Mass/Vol] 584.0 pg/mL Normal <=1,800.0 [facility] Comment on above: Performed By: #### P OCGLUC #### [facility] [address] [place] [address] Dr. Dilip Cartagena CARDIAC JON 3-6on 2 CK [Catalytic activity/Vol] 5303 U/L Critically high 26-192 [facility] Comment on above: Performed By: #### C MREP #### [facility] [address] [address] [address] Dilip Cartagena CK.MB [Mass/Vol] 280.92 ng/mL Critically high <=3.60 [facility] Comment on above: Performed By: #### C MREP #### [facility] [address] [place] [address] Dr. Dilip Cartagena HSTROP 20.1 pg/mL Normal 4.0-51.3 [facility] Comment on above: Result Comment: CUT- OFF POINTS HAVE BEEN ESTABLISHED BASED ON THE FOURTH UNIVERSAL DEFINITIONS OF MYOCARDIAL INFARCTION. THE UPPER REFERENCE LIMIT (URL) OF TROPONIN, DEFINED THE 99TH PERCENTILE OF cTnI DISTRIBUTION IN A REFERENCE POPULATION, HAS BEEN CONFIRMED THE DECISION THRESHOLD FOR [place] DIAGNOSIS. Performed By: #### C MREP #### [facility] [address] [place] [address] Dr. Dilip Cartagena CK [Catalytic activity/Vol] 6224 U/L Critically high 26-192 [facility] Comment on above: Performed By: #### U RCX #### [facility] [address] [place] [address] Dr. Dilip TRAYLOR.MB [Mass/Vol] 341.85 ng/mL Critically high <=3.60 [facility] Comment on above: Performed By: #### U RCX #### [facility] [address] [place] [address] Dr. Dilip Cartagena HSTROP 27.2 pg/mL Normal 4.0-51.3 [facility] Comment on above: Result Comment: CUT- OFF POINTS HAVE BEEN ESTABLISHED BASED ON THE FOURTH UNIVERSAL DEFINITIONS OF MYOCARDIAL INFARCTION. THE UPPER REFERENCE LIMIT (URL) OF TROPONIN, DEFINED THE 99TH PERCENTILE OF cTnI DISTRIBUTION IN A REFERENCE POPULATION, HAS BEEN CONFIRMED THE DECISION THRESHOLD FOR [place] DIAGNOSIS. Performed By: #### U RCX #### [facility] [address] [place] [address] Dr. Dilip Cartagena CARDIAC JON ADMITon 01-16-2 022 CK [Catalytic activity/Vol] 6161 U/L Critically high 26-192 [facility] Comment on above: Performed By: #### U RCX #### [facility] [address] [place] [address] Dr. Dilip Cartagena CK.MB [Mass/Vol] 314.21 ng/mL Critically high <=3.60 [facility] Comment on above: Performed By: #### U RCX #### [facility] [address] [place] [address] Dr. Dilip Cartagena HSTROP 27.5 pg/mL Normal 4.0-51.3 [facility] Comment on above: Result Comment: CUT- OFF POINTS HAVE BEEN ESTABLISHED BASED ON THE FOURTH UNIVERSAL DEFINITIONS OF MYOCARDIAL INFARCTION. THE UPPER REFERENCE LIMIT (URL) OF TROPONIN, DEFINED THE 99TH PERCENTILE OF cTnI DISTRIBUTION IN A REFERENCE POPULATION, HAS BEEN CONFIRMED THE DECISION THRESHOLD FOR [place] DIAGNOSIS. Performed By: #### U RCX #### [facility] [address] [place] [address] Dr. Dilip Cartagena REESE 3384 ng/mL Critically high 9-82 [facility] Comment on above: Performed By: #### U RCX #### [facility] [address] [place] [address] Dr. Dilip Cartagena CBC AUTO DIFFon 01-16-2022 BASO # 0.0 103/ul Normal 0.0-0.1 [facility] Comment on above: Performed By: #### P OCGLUC #### [facility] [address] [place] [address] Dr. Dilip Cartagena Basophils/100 WBC (Bld) 0.3 % Normal 0.2-2.0 [facility] Comment on above: Performed By: #### P OCGLUC #### [facility] [address] [place] [address] Dr. Dilip Cartagena EO # 0.1 103/ul Normal 0.0-0.7 [facility] Comment on above: Performed By: #### P OCGLUC #### [facility] [address] [place] [address] Dr. Dilip Cartagena Eosinophils/100 WBC (Bld) 1.2 % Normal 0.9-7.0 [facility] Comment on above: Performed By: #### P OCGLUC #### [facility] [address] [address] [address] Dilip Cartagena Erythrocyte distribution width (RBC) [Ratio] 13.9 % Normal 11.0-15.0 [facility] Comment on above: Performed By: #### P OCGLUC #### [facility] [address] [address] [address] Dilip Cartagena Hematocrit (Bld) [Volume fraction] 40.2 % Normal 36.0-48.0 [facility] Comment on above: Performed By: #### P OCGLUC #### [facility] [address] [place] [address] Dr. Dilip Cartagena Hemoglobin (Bld) [Mass/Vol] 12.8 g/dL Normal 12.0-16.0 [facility] Comment on above: Performed By: #### P OCGLUC #### [facility] [address] [place] [address] Dr. Dilip Cartagena IG # 0.07 10e3/ul Critically high 0.00-0.03 [facility] Comment on above: Performed By: #### P OCGLUC #### [facility] [address] [address] [address] Dilip Cartagena IG % 0.7 % Critically high 0.0-0.5 [facility] Comment on above: Performed By: #### P OCGLUC #### [facility] [address] [address] [address] Dilip Cartagena LYMPH # 2.5 103/ul Normal 1.2-3.8 [facility] Comment on above: Performed By: #### P OCGLUC #### [facility] [address] [place] [address] Dr. Dilip Cartagena Lymphocytes/100 WBC (Bld) 26.2 % Normal 20.5-60.0 [facility] Comment on above: Performed By: #### P OCGLUC #### [facility] [address] [address] [address] Dilip Cartagena MANUAL DIFF REQ NO Normal [facility] Comment on above: Performed By: #### P OCGLUC #### [facility] [address] [address] [address] Dilip Cartagena MCH (RBC) [Entitic mass] 30.2 pg Normal 26.7-34.0 [facility] Comment on above: Performed By: #### P OCGLUC #### [facility] [address] [place] [address] Dr. Dilip Cartagena MCHC (RBC) [Mass/Vol] 31.8 g/dL Normal 29.9-35.2 [facility] Comment on above: Performed By: #### P OCGLUC #### [facility] [address] [place] [address] Dr. Dilip Cartagena MCV (RBC) [Entitic vol] 94.8 fL Normal 81.0-99.0 [facility] Comment on above: Performed By: #### P OCGLUC #### [facility] [address] [place] [address] Dr. Dilip Cartagena MONO # 0.6 103/ul Normal 0.3-0.8 [facility] Comment on above: Performed By: #### P OCGLUC #### [facility] [address] [place] [address] Dr. Dilip Cartagena Monocytes/100 WBC (Bld) 6.0 % Normal 1.7-12.0 [facility] Comment on above: Performed By: #### P OCGLUC #### [facility] [address] [place] [address] Dr. Dilip Cartagena NEUT # 6.1 103/ul Normal 1.4-6.5 [facility] Comment on above: Performed By: #### P OCGLUC #### [facility] [address] [place] [address] Dr. Dilip Cartagena Neutrophils/100 WBC (Bld) 65.6 % Normal 43.0-75.0 [facility] Comment on above: Performed By: #### P OCGLUC #### [facility] [address] [place] [address] Dr. Dilip Cartagena Platelet mean volume (Bld) [Entitic vol] 8.7 fL Critically low 9.5-13.5 [facility] Comment on above: Performed By: #### P OCGLUC #### [facility] [address] [place], [place] [address] Dr. Dilip Cartagena PLT 335 103/ul Normal 150-450 [facility] Comment on above: Performed By: #### P OCGLUC #### [facility] [address] [place], [place] [address] Dr. Dilip Cartagena RBC 4.24 106/ul Normal 4.20-5.40 [facility] Comment on above: Performed By: #### P OCGLUC #### [facility] [id number] Dilip Cartagena WBC 9.4 103/ul Normal 4.0-11.0 [facility] Comment on above: Performed By: #### P OCGLUC #### [facility] [address] ABD/PELV W CONon [...] Manuelito MARTINEZ Date: 2022-01-16 05:33 Normal [facility] CULTURE BLOODon 01-16-2022 Microscopic examination of blood, culture Culture Observations: NO GROWTH AT 5 DAYS. Isolate 1 [id number] Normal [facility] Comment on above: Performed By: #### L IPID, BMP, NA #### [facility] [address] [address] [address] Dilip Cartagena CULTURE URINEon 01-16-2022 CULTURE URINE Culture Observations : NO GROWTH. Normal [facility] Comment on above: Performed By: #### U RCX #### [facility] [address] [address] [address] Dilip Cartagena [facility] SARS-CoV-2 (COVID-19) RNA NAKUL+probe Ql (Unsp spec) Not detected Normal NOT DETECTED [facility] Comment on above: Result Comment: [...] for this test is supported by the [place] of Health and Human Service's declaration that [...] used). Performed By: #### U RCX #### [facility] [address] [place] [address] Dr. Dilip Cartagena ECHO LIMITED STUDYon 10-14-2 022 ECHO LIMITED STUDY Patient: ELOISA ELIZALDE Exam Date: 01/16/2022 : 1940 Gender:F Ordering : DR CECILY VIEIRA . 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 on 01/16/2022 at 14:35 Normal [facility] LACTATE/LACTIC ACIDon 2021 Lactate [Moles/Vol] 0.7 mmol/L Normal 0.4-1.9 [facility] Comment on above: Performed By: #### U RCX #### [facility] [address] [place] [address] Dr. Dilip Cartagena Lactate [Moles/Vol] 1.5 mmol/L Normal 0.4-1.9 [facility] Comment on above: Performed By: #### U RCX #### [facility] [address] [address] [address] Dilip Cartagena LIPASEon 01-16-2022 Lipase [Catalytic activity/Vol] 59.0 U/L Critically low 73.0-393.0 [facility] Comment on above: Performed By: #### L IPID, BMP, NA #### [facility] [address] [address] [address] Dilip Cartagena Lipase [Catalytic activity/Vol] 118.0 U/L Normal 73.0-393.0 [facility] Comment on above: Performed By: #### U RCX #### [facility] [address] [place] [address] Dr. Dilip Cartagena Lipase [Catalytic activity/Vol] 101.0 U/L Normal 73.0-393.0 [facility] Comment on above: Performed By: #### P OCGLUC #### [facility] [address] [place] [address] Dr. Dilip Cartagena POINT OF CARE GLUCOSEon 01-03 Glucose [Mass/Vol] 168 mg/dL Critically high 74-106 [facility] Comment on above: Performed By: #### P OCGLUC #### [facility] [address] [place] [address] Dr. Dilip Cartagena Glucose [Mass/Vol] 106 mg/dL Normal 74-106 [facility] Comment on above: Performed By: #### L IPID, BMP, NA #### [facility] [address] [place] [address] Dr. Dilip Cartagena Glucose [Mass/Vol] 221 mg/dL Critically high 74-106 [facility] Comment on above: Performed By: #### L IPID, BMP, NA #### [facility] [address] [place] [address] Dr. Dilip Cartagena PROF 14(COMP METB)on 022 Albumin [Mass/Vol] 3.8 g/dL Normal 3.4-5.0 [facility] Comment on above: Performed By: #### U RCX #### [facility] [address] [place] [address] Dr. Dilip Cartagena Albumin/Globulin [Mass ratio] 1.2 {ratio} Normal [facility] Comment on above: Performed By: #### U RCX #### [facility] [address] [place] [address] Dr. Dilip Cartagena ALP [Catalytic activity/Vol] 52 U/L Normal 46-116 [facility] Comment on above: Performed By: #### U RCX #### [facility] [address] [place] [address] Dr. Dilip Cartagena ALT [Catalytic activity/Vol] 194 U/L Critically high 14-59 [facility] Comment on above: Performed By: #### U RCX #### [facility] [address] [place] [address] Dr. Dilip Cartagena Anion gap [Moles/Vol] 13.5 mmol/L Normal Th e [facility] Comment on above: Performed By: #### U RCX #### [facility] [address] [address] [address] Dilip Cartagena AST [Catalytic activity/Vol] 110 U/L Critically high 15-37 [facility] Comment on above: Performed By: #### U RCX #### [facility] [address] [address] [address] Dilip Cartagena Bilirubin [Mass/Vol] 0.4 mg/dL Normal 0.2-1.0 [facility] Comment on above: Performed By: #### U RCX #### [facility] [address] [place] [address] Dr. Dilip Cartagena Calcium [Mass/Vol] 8.9 mg/dL Normal 8.5-10.1 [facility] Comment on above: Performed By: #### U RCX #### [facility] [address] [address] [address] Dilip Cartagena Chloride [Moles/Vol] 99 mmol/L Normal 98-107 [facility] Comment on above: Performed By: #### U RCX #### [facility] [address] [place] [address] Dr. Dilip Cartagena CO2 [Moles/Vol] 26.1 mmol/L Normal 21.0-32.0 [facility] Comment on above: Performed By: #### U RCX #### [facility] [address] [address] [address] Dilip Cartagena Creatinine [Mass/Vol] 0.93 mg/dL Normal 0.55-1.02 [facility] Comment on above: Performed By: #### U RCX #### [facility] [address] [place] [address] Dr. Dilip Cartagena EGFR-AF BERMUDIAN >60 Normal >=60 [facility] Comment on above: Performed By: #### U RCX #### [facility] [address] [address] [address] Dilip Cartagena EGFR-NON AF BERMUDIAN 58 mL/min/1.73m2 Critically low >=60 [facility] Comment on above: Performed By: #### U RCX #### [facility] [address] [place] [address] Dr. Dilip Cartagena Globulin (S) [Mass/Vol] 3.3 g/dL Normal [facility] Comment on above: Performed By: #### U RCX #### [facility] [address] [place] [address] Dr. Dilip Cartagena Glucose [Mass/Vol] 143 mg/dL Critically high 74-106 T [facility] Comment on above: Performed By: #### U RCX #### [facility] [address] [place] [address] Dr. Dilip Cartagena Potassium [Moles/Vol] 4.6 mmol/L Normal 3.5-5.1 [facility] Comment on above: Performed By: #### U RCX #### [facility] [address] [place] [address] Dr. Dilip Cartagena Protein [Mass/Vol] 7.1 g/dL Normal 6.4-8.2 [facility] Comment on above: Performed By: #### U RCX #### [facility] [address] [place] [address] Dr. Dilip Cartagena Sodium [Moles/Vol] 134 mmol/L Critically low 136-145 Th [facility] Comment on above: Performed By: #### U RCX #### [facility] [address] [place] [address] Dr. Dilip Cartagena Urea nitrogen [Mass/Vol] 21.0 mg/dL Critically high 7.0-18.0 [facility] Comment on above: Performed By: #### U RCX #### [facility] [address] [place] [address] Dr. Dilip Cartagena Urea nitrogen/Creatinine [Mass ratio] 22.6 mg/mg Normal [facility] Comment on above: Performed By: #### U RCX #### [facility] [address] [place] [address] Dr. Dilip Cartagena T4on 01-16-2022 T4 [Mass/Vol] 10.90 ug/dL Normal 4.80-13.90 [facility] Comment on above: Performed By: #### P OCGLUC #### [facility] [address] [place] [address] Dr. Dilip Cartagena TSHon 01-16-2022 TSH 3.536 uIU/mL Normal 0.358-3.74 0 [facility] Comment on above: Performed By: #### P OCGLUC #### [facility] [address] [place] [address] Dr. Dilip Cartagena UA RANDOM W/MICROSCOPICon BACTERIA TRACE Abnormal NONE SEEN [facility] Comment on above: Performed By: #### U RCX #### [facility] [address] [place] [address] Dr. Dilip Cartagena Bilirubin Ql (U) Negative Normal NEGATIVE [facility] Comment on above: Performed By: #### U RCX #### [facility] [address] [place] [address] Dr. Dilip Cartagena CAST NONE SEEN Normal NONE SEEN [facility] Comment on above: Performed By: #### U RCX #### [facility] [address] [place] [address] Dr. Dilip Cartagena Clarity (U) CLEAR Normal CLEAR [facility] Comment on above: Performed By: #### U RCX #### [facility] [address] [place] [address] Dr. Dilip Cartagena Color (U) DK. ORANGE Abnormal YELLOW [facility] Comment on above: Performed By: #### U RCX #### [facility] [address] [place] [address] Dr. Dilip Cartagena Crystals LM Nom (Urine sed) NONE SEEN Normal NONE SEEN [facility] Comment on above: Performed By: #### U RCX #### [facility] [address] [place] [address] Dr. Dilip Cartagena Epithelial cells LM Ql (Urine sed) RARE Normal NONE SEEN /RARE [facility] Comment on above: Performed By: #### U RCX #### [facility] [address] [place] [address] Dr. Dilip Cartagena Glucose Ql (U) Negative Normal NEGATIVE [facility] Comment on above: Performed By: #### U RCX #### [facility] [address] [place] [address] Dr. Dilip Cartagena Hemoglobin Ql (U) SMALL Abnormal NEGATIVE [facility] Comment on above: Performed By: #### U RCX #### [facility] [address] [place] [address] Dr. Dilip Cartagena Ketones Ql (U) 40 mg/dl Abnormal NEGATIVE [facility] Comment on above: Performed By: #### U RCX #### [facility] [address] [place] [address] Dr. Dilip Cartagena LEUKOCYTES TRACE Abnormal NEGATIVE [facility] Comment on above: Performed By: #### U RCX #### [facility] [address] [place] [address] Dr. Dilip Cartagena MUCOUS NONE SEEN Normal NONE SEEN [facility] Comment on above: Performed By: #### U RCX #### [facility] [address] [place] [address] Dr. Dilip Cartagena Nitrite Ql (U) Positive Abnormal NEGATIVE [facility] Comment on above: Performed By: #### U RCX #### [facility] [address] [place] [address] Dr. Dilip Cartagena pH (U) 6.5 [pH] Normal 5-9 [facility] Comment on above: Performed By: #### U RCX #### [facility] [address] [place] [address] Dr. Dilip Cartagena RBC 0-2 Normal 0-2 [facility] Comment on above: Performed By: #### U RCX #### [facility] [address] [place] [address] Dr. Dilip Cartagena SPEC GRAVITY 1.010 Normal 1.005-<=1. 025 [facility] Comment on above: Performed By: #### U RCX #### [facility] [address] [place] [address] Dr. Dilip Cartagena UA PROTEIN TRACE Normal NEGATIVE/ TRACE [facility] Comment on above: Performed By: #### U RCX #### [facility] [address] [id number] Dr. Dilip Cartagena Urobilinogen Qn (U) 0.2 {Hallie'U}/dL Normal 0.2 - 1. 0 [facility] Comment on above: Performed By: #### U RCX #### [facility] [address] [address] [address] Dilip Cartagena WBC 2-5 Abnormal NONE SEEN [facility] Comment on above: Performed By: #### U RCX #### [facility] [address] [address] [address] Dilip Cartagena US SINGLE QUAD RT [...] no focal mass Electronically authenticated by: LORETTA ORELALNA Date: 2022-01-16 08:00 Normal [facility] US BEV DOP LEG LTon [...] LORETTA ORELLANA Date: 2022-01-16 07:58 Normal [facility] XR CHEST 2 Von 01-16-2022 [...] JOHANN PARKS Date: 2022-01-16 05:12 Normal [facility] CULTURE URINEon 01-03-2022 CULTURE URINE [...] Trimethoprim/Sulfamethoxazo le <=20 S F Normal [facility] Comment on above: Performed By: #### U RCX #### [facility] [address] [place] [address] Dr. Dilip Cartagena UA RANDOM W/MICROSCOPICon BACTERIA MODERATE Abnormal NONE SEEN [facility] Comment on above: Performed By: #### U RCX #### [facility] [address] [place] [address] Dr. Dilip Cartagena Bilirubin Ql (U) Negative Normal NEGATIVE [facility] Comment on above: Performed By: #### U RCX #### [facility] [address] [place] [address] Dr. Dilip Cartagena CAST NONE SEEN Normal NONE SEEN [facility] Comment on above: Performed By: #### U RCX #### [facility] [address] [address] [address] Dilip Cartagena Clarity (U) SL CLOUDY Abnormal CLEAR [facility] Comment on above: Performed By: #### U RCX #### [facility] [address] [place] [address] Dr. Dilip Cartagena Color (U) YELLOW Normal YELLOW [facility] Comment on above: Performed By: #### U RCX #### [facility] [address] [address] [address] Dilip Cartagena Crystals LM Nom (Urine sed) NONE SEEN Normal NONE SEEN [facility] Comment on above: Performed By: #### U RCX #### [facility] [address] [place] [address] Dr. Dilip Cartagena Epithelial cells LM Ql (Urine sed) FEW Abnormal NONE SEEN /RARE [facility] Comment on above: Performed By: #### U RCX #### [facility] [address] [place] [address] Dr. Dilip Cartagena Glucose Ql (U) Negative Normal NEGATIVE [facility] Comment on above: Performed By: #### U RCX #### [facility] [address] [place] [address] Dr. Dilip Cartagena Hemoglobin Ql (U) SMALL Abnormal NEGATIVE [facility] Comment on above: Performed By: #### U RCX #### [facility] [address] [place] [address] Dr. Dilip Cartagena Ketones Ql (U) Negative Normal NEGATIVE [facility] Comment on above: Performed By: #### U RCX #### [facility] [address] [place] [address] Dr. Dilip Cartagena LEUKOCYTES LARGE Abnormal NEGATIVE [facility] Comment on above: Performed By: #### U RCX #### [facility] [address] [place] [address] Dr. Dilip Cartagena MUCOUS NONE SEEN Normal NONE SEEN [facility] Comment on above: Performed By: #### U RCX #### [facility] [address] [place] [address] Dr. Dilip Cartagena Nitrite Ql (U) Negative Normal NEGATIVE [facility] Comment on above: Performed By: #### U RCX #### [facility] [address] [place] [address] Dr. Dilip Cartagena pH (U) 8.5 [pH] Normal 5-9 [facility] Comment on above: Performed By: #### U RCX #### [facility] [address] [place] [address] Dr. Dilip Cartagena RBC 0-2 Normal 0-2 [facility] Comment on above: Performed By: #### U RCX #### [facility] [address] [place] [address] Dr. Dilip Cartagena SPEC GRAVITY 1.010 Normal 1.005-<=1. 025 [facility] Comment on above: Performed By: #### U RCX #### [facility] [address] [place] [address] Dr. Dilip Cartagena UA PROTEIN TRACE Normal NEGATIVE/ TRACE [facility] Comment on above: Performed By: #### U RCX #### [facility] [address] [place] [address] Dr. Dilip Cartagena Urobilinogen Qn (U) 0.2 {Hallie'U}/dL Normal 0.2 - 1. 0 [facility] Comment on above: Performed By: #### U RCX #### [facility] [address] [place] [address] Dr. Dilip Cartagena WBC 2-5 Abnormal NONE SEEN [facility] Comment on above: Performed By: #### U RCX #### [facility] [address] [place] [address] Dr. Dilip Cartagena CULTURE URINEon 12-22-2021 CULTURE URINE Culture Observations : LIGHT GROWTH OF MIXED GENITAL JAVON. NO POTENTIAL PATHOGENS SEEN. Normal [facility] Comment on above: Performed By: #### U RCX #### [facility] [address] [place] [address] Dr. Dilip Cartagena UA RANDOM W/MICROSCOPICon BACTERIA NONE SEEN Normal NONE SEEN [facility] Comment on above: Performed By: #### P OCGLUC #### [facility] [address] [address] [address] Dilip Cartagena Bilirubin Ql (U) Negative Normal NEGATIVE [facility] Comment on above: Performed By: #### P OCGLUC #### [facility] [address] [place] [address] Dr. Dilip Cartagena CAST NONE SEEN Normal NONE SEEN [facility] Comment on above: Performed By: #### P OCGLUC #### [facility] [address] [address] [address] Dilip Cartagena Clarity (U) CLEAR Normal CLEAR [facility] Comment on above: Performed By: #### P OCGLUC #### [facility] [address] [place] [address] Dr. Dilip Cartagena Color (U) LT. YELLOW Normal YELLOW [facility] Comment on above: Performed By: #### P OCGLUC #### [facility] [address] [place] [address] Dr. Dilip Cartagena Crystals LM Nom (Urine sed) NONE SEEN Normal NONE SEEN [facility] Comment on above: Performed By: #### P OCGLUC #### [facility] [address] [place] [address] Dr. Dilip Cartagena Epithelial cells LM Ql (Urine sed) FEW Abnormal NONE SEEN /RARE [facility] Comment on above: Performed By: #### P OCGLUC #### [facility] [address] [place] [address] Dr. Dilip Cartagena Glucose Ql (U) Negative Normal NEGATIVE [facility] Comment on above: Performed By: #### P OCGLUC #### [facility] [address] [place] [address] Dr. Dilip Cartagena Hemoglobin Ql (U) Negative Normal NEGATIVE [facility] Comment on above: Performed By: #### P OCGLUC #### [facility] [address] [place] [address] Dr. Dilip Cartagena Ketones Ql (U) Negative Normal NEGATIVE [facility] Comment on above: Performed By: #### P OCGLUC #### [facility] [address] [place] [address] Dr. Dilip Cartagena LEUKOCYTES Negative Normal NEGATIVE [facility] Comment on above: Performed By: #### P OCGLUC #### [facility] [address] [place] [address] Dr. Dilip Cartagena MUCOUS NONE SEEN Normal NONE SEEN [facility] Comment on above: Performed By: #### P OCGLUC #### [facility] [address] [place] [address] Dr. Dilip Cartagena Nitrite Ql (U) Negative Normal NEGATIVE [facility] Comment on above: Performed By: #### P OCGLUC #### [facility] [address] [place] [address] Dr. Dilip Cartagena pH (U) 6.0 [pH] Normal 5-9 [facility] Comment on above: Performed By: #### P OCGLUC #### [facility] [address] [place] [address] Dr. Dilip Cartagena RBC NONE SEEN Abnormal 0-2 [facility] Comment on above: Performed By: #### P OCGLUC #### [facility] [address] [place] [address] Dr. Dilip Cartagena SPEC GRAVITY 1.005 Normal 1.005-<=1. 025 [facility] Comment on above: Performed By: #### P OCGLUC #### [facility] [address] [place] [address] Dr. Dilip Cartagena UA PROTEIN Negative Normal NEGATIVE/ TRACE [facility] Comment on above: Performed By: #### P OCGLUC #### [facility] [address] [place] [address] Dr. Dilip Cartagena Urobilinogen Qn (U) 0.2 {Hallie'U}/dL Normal 0.2 - 1. 0 [facility] Comment on above: Performed By: #### P OCGLUC #### [facility] [address] [place] [address] Dr. Dilip Cartagena WBC NONE SEEN Normal NONE SEEN [facility] Comment on above: Performed By: #### P OCGLUC #### [facility] [address] [place] [address] Dr. Dilip Cartagena CULTURE URINEon 12-07-2021 CULTURE [...] Trimethoprim/Sulfamethoxazo le <=20 S F Normal [facility] Comment on above: Performed By: #### U RCX #### [facility] [address] [place] [address] Dr. Dilip Cartagena UA RANDOM W/MICROSCOPICon BACTERIA LARGE Abnormal NONE SEEN [facility] Comment on above: Performed By: #### P OCGLUC #### [facility] [address] [place] [address] Dr. Dilip Cartagena Bilirubin Ql (U) SMALL Abnormal NEGATIVE [facility] Comment on above: Performed By: #### P OCGLUC #### [facility] [address] [place] [address] Dr. Dilip Cartagena CAST NONE SEEN Normal NONE SEEN [facility] Comment on above: Performed By: #### P OCGLUC #### [facility] [address] [address] [address] Dilip Cartagena Clarity (U) CLEAR Normal CLEAR [facility] Comment on above: Performed By: #### P OCGLUC #### [facility] [address] [address] [address] Dilip Cartagena Color (U) DK. ORANGE Abnormal YELLOW [facility] Comment on above: Performed By: #### P OCGLUC #### [facility] [address] [place] [address] Dr. Dilip Cartagena Crystals LM Nom (Urine sed) NONE SEEN Normal NONE SEEN [facility] Comment on above: Performed By: #### P OCGLUC #### [facility] [address] [place] [address] Dr. Dilip Cartagena Epithelial cells LM Ql (Urine sed) FEW Abnormal NONE SEEN /RARE [facility] Comment on above: Performed By: #### P OCGLUC #### [facility] [address] [place] [address] Dr. Dilip Cartagena Glucose Ql (U) 100 mg/dl Abnormal NEGATIVE [facility] Comment on above: Performed By: #### P OCGLUC #### [facility] [address] [place] [address] Dr. Dilip Cartagena Hemoglobin Ql (U) LARGE Abnormal NEGATIVE [facility] Comment on above: Performed By: #### P OCGLUC #### [facility] [address] [place] [address] Dr. Dilip Cartagena Ketones Ql (U) TRACE Abnormal NEGATIVE [facility] Comment on above: Performed By: #### P OCGLUC #### [facility] [address] [place] [address] Dr. Dilip Cartagena LEUKOCYTES SMALL Abnormal NEGATIVE [facility] Comment on above: Performed By: #### P OCGLUC #### [facility] [address] [place] [address] Dr. Dilip Cartagena MUCOUS NONE SEEN Normal NONE SEEN [facility] Comment on above: Performed By: #### P OCGLUC #### [facility] [address] [place] [address] Dr. Dilip Cartagena Nitrite Ql (U) Positive Abnormal NEGATIVE [facility] Comment on above: Performed By: #### P OCGLUC #### [facility] [address] [address] [address] Dilip Cartagena pH (U) 8.0 [pH] Normal 5-9 [facility] Comment on above: Performed By: #### P OCGLUC #### [facility] [address] [place] [address] Dr. Dilip Cartagena RBC 50-75 Abnormal 0-2 [facility] Comment on above: Performed By: #### P OCGLUC #### [facility] [address] [place] [address] Dr. Dilip Cartagena SPEC GRAVITY <=1.005 Abnormal 1.005-<=1. 025 [facility] Comment on above: Performed By: #### P OCGLUC #### [facility] [address] [place] [address] Dr. Dilip Cartagena UA PROTEIN >300 Abnormal NEGATIVE/ TRACE [facility] Comment on above: Performed By: #### P OCGLUC #### [facility] [address] [place] [address] Dr. Dilip Cartagena Urobilinogen Qn (U) 1.0 {Hallie'U}/dL Normal 0.2 - 1. 0 [facility] Comment on above: Performed By: #### P OCGLUC #### [facility] [address] [place] [address] Dr. Dilip Cartagena WBC 10-20 Abnormal NONE SEEN [facility] Comment on above: Performed By: #### P OCGLUC #### [facility] [address] [place] [address] Dr. Dilip Cartagena XR KNEE CATRACHITO 4V [...] by: ERIC BERRY Date: 2021-12-04 15:52 Normal [facility] MG MAMM SCREEN 3D CATRACHITO CADon 10-29-2021 MG MAMM SCREEN 3D CATRACHITO CAD Patient: JAMARI ELIZALDE Exam Date: 10/29/2021 : 1940 Gender:F Ordering : DR KILO CHAVEZ M.D. Admission #: [id number] Family : Order #: [id number] CLICK HERE TO VIEW EXAM RADIOLOGY REPORT [...] breast cancer at age 71. LOCATION: [facility] BREAST COMPOSITION: Heterogeneously dense,which may [...] Berry M.D. on 10/30/2021 at 15:42 Normal [facility] XR DEXA BONE DENSITYon 10-29 XR [...] by: ERIC BERRY Date: 2021-10-29 17:24 Normal [facility] COVID-19 Positive/Negativeon 08-06-2020 SARS-CoV-2 (COVID-19) N gene NAKUL+probe Ql (Resp) Negative Negative [facility] Comment on above: Testing for SARS-CoV -2 by RT-PCRThis test was developed and its performance characteristics determined by [employer] ([employer] and validated at the [facility]. This test has not been FDA cleared [...] (COVID-19) RNA NAKUL+probe Ql (Unsp spec) N/A [facility] Vital Signs Date Time Vital Sign Value Performing Clinician Faci lity 09-25-2022 10:35-0400 Diastolic blood pressure 82 mm[Hg] PHYSICIAN NO [facility] 09-25-2022 10:35-0400 Heart rate 95 /min PHYSICIAN NO [facility] 09-25-2022 10:35-0400 Respiratory rate 16 /min PHYSICIAN NO [facility] 09-25-2022 10:35-0400 SaO2% (BldA) [Mass fraction] 99 % PHYSICIAN NO [facility] 09-25-2022 10:35-0400 Systolic blood pressure 161 mm[Hg] PHYSICIAN NO [facility] 09-25-2022 07:39-0400 Body height 165.1 cm PHYSICIAN NO [facility] 09-25-2022 07:39-0400 Body weight 63.5 kg PHYSICIAN NO [facility] 08-07-2022 11:06-0400 Blood Pressure Location Ivana Lue [facility] 08-07-2022 11:06-0400 Diastolic blood pressure 64 mm[Hg] Ivana Lue [facility] 08-07-2022 11:06-0400 Heart rate 67 /min Ivana Lue [facility] 08-07-2022 11:06-0400 Systolic blood pressure 132 mm[Hg] Ivana Lue [facility] 07-15-2022 10:25-0400 Blood Pressure Location Ivana Lue [facility] 07-15-2022 10:25-0400 Diastolic blood pressure 67 mm[Hg] Ivana Lue [facility] 07-15-2022 10:25-0400 Heart rate 108 /min Ivana Lue [facility] 07-15-2022 10:25-0400 Systolic blood pressure 144 mm[Hg] Ivana Lue [facility] 07-01-2022 08:21-0400 Blood Pressure Location Ivana Lue [facility] 07-01-2022 08:21-0400 Diastolic blood pressure 61 mm[Hg] Ivana Lue [facility] 07-01-2022 08:21-0400 Heart rate 90 /min Ivana Lue [facility] 07-01-2022 08:21-0400 Systolic blood pressure 118 mm[Hg] Ivana Lue [facility] 06-03-2022 07:53-0500 Diastolic blood pressure 70 mm[Hg] II Kilo Chavez Work Phone: [facility] 06-03-2022 07:53-0500 Heart rate 89 /min II Kilo Chavez Work Phone: [facility] 06-03-2022 07:53-0500 Respiratory rate 16 /min II Kilo Chavez Work Phone: [facility] 06-03-2022 07:53-0500 SaO2% (BldA) [Mass fraction] 96 % II Kilo Chavez Work Phone: [facility] 06-03-2022 07:53-0500 Systolic blood pressure 155 mm[Hg] II Kilo Chavez Work Phone: [facility] 06-02-2022 17:00-0500 Body height 162.56 cm II Kilo Chavez Work Phone: [facility] 06-02-2022 17:00-0500 Body temperature 97.6 [degF] II Kilo Chavez Work Phone: [facility] 06-02-2022 17:00-0500 Body weight 72.57 kg II Kilo Chavez Work Phone: [facility] Encounters Encounter Date Encounter Type Care Provider Facility Start: 08-05-2023 End: 08-05-2023 ambulatory JEFF MEDELLIN Not Available Start: 07-13-2023 ambulatory SEBASTIÁN E LANDY [facility] Start: 06-23-2023 End: 06-23-2023 ambulatory FOZIA AICHHOLZ Not Available Start: 06-08-2023 End: 06-09-2023 ambulatory SEBASTIÁN E LANDY Facility:[facility] [place] Start: 05-11-2023 End: 05-12-2023 ambulatory SEBASTIÁN E LANDY Facility[facility] Start: 04-13-2023 End: 04-14-2023 ambulatory SEBASTIÁN E LANDY Facility:[facility] [place] Start: 04-13-2023 End: 04-13-2023 Patient encounter procedure SEBASTIÁN E LANDY [facility] [place] Start: 04-08-2023 End: 04-08-2023 ambulatory JEFF MEDELLIN Not Available Start: 03-31-2023 End: 03-31-2023 ambulatory FOZIA AICHHOLZ Not Available Start: 03-16-2023 End: 03-17-2023 ambulatory SEBASTIÁN E LANDY Facility:[facility] Start: 03-16-2023 End: 03-16-2023 Patient encounter procedure SEBASTIÁN E LANDY [facility] [place] Start: 02-16-2023 End: 02-17-2023 ambulatory SEBASTIÁN E LANDY Facility:[facility] [place] Start: 01-19-2023 End: 01-20-2023 ambulatory SEBASTIÁN E LANDY Facility:[facility] [place] Start: 12-22-2022 End: 12-23-2022 ambulatory Ivana Hernandez Facility:[facility] [place] Start: 12-22-2022 End: 12-22-2022 Patient encounter procedure Ivana M. Lue [facility] [place] Start: 11-25-2022 End: 11-26-2022 ambulatory Ivana M. Lue Facility:[facility] [place] Start: 11-25-2022 End: 11-25-2022 Patient encounter procedure Ivana M. Lue [facility] [place] Start: 11-10-2022 ambulatory Jose Manuel Lorenzoi ty:[facility] [place] Start: 10-26-2022 End: 10-27-2022 ambulatory Ivana M. Lue Facility:[facility] Start: 10-15-2022 ambulatory Ivana M. Lue Facility:[facility] [place] Start: 10-12-2022 End: 10-13-2022 ambulatory Ivana M. Lue Facility:[facility] Start: 10-12-2022 End: 10-12-2022 Patient encounter procedure Ivana M. Lue [facility] Start: 09-30-2022 End: 10-01-2022 ambulatory Ivana M. Lue Facility:[facility] Start: 09-30-2022 End: 09-30-2022 Patient encounter procedure Ivana M. Lue [facility] [place] Start: 09-30-2022 End: 10-01-2022 ambulatory Ivana M. Lue Facility:[facility] Start: 09-30-2022 End: 09-30-2022 Patient encounter [facility] Start: 09-25-2022 End: 09-25-2022 ambulatory Pipe Sanchez Facility:[facility] Start: 09-25-2022 End: 09-25-2022 Admission to same day surgery center PHYSICIAN NO [facility] Work Phone: Start: 09-25-2022 End: 09-25-2022 ambulatory PHYSICIAN NO [facility] Work Phone: Start: 09-23-2022 ambulatory Ivana Hernandez Facility:[facility] [place] Start: 09-01-2022 End: 09-02-2022 ambulatory EMERGENCY MANAGER FOZIATremaine TOBAR Facility:[facility] Start: 08-26-2022 ambulatory SEBASTIÁN E LANDY Facili ty:[facility] [place] Start: 08-26-2022 End: 08-27-2022 ambulatory SEBASTIÁN E LANDY Facility:[facility] [place] Start: 08-07-2022 End: 08-08-2022 ambulatory Ivana Hernandez Facility:[facility] [place] Start: 08-07-2022 End: 08-07-2022 Patient encounter procedure Ivana Hernandez [facility] [place] Start: 07-30-2022 End: 07-30-2022 ambulatory Johann Dolan Facility:[facility] Start: 07-30-2022 End: 07-30-2022 ambulatory PHYSICIAN NO [facility] Work Phone: Start: 07-30-2022 End: 07-30-2022 Patient encounter procedure PHYSICIAN NO [facility] [address] Work Phone: Start: 07-23-2022 End: 07-23-2022 ambulatory EMERGENCY MANAGER FOZIA TOBAR Facility:[facility] Start: 07-15-2022 End: 07-16-2022 ambulatory Ivana Hernandez Facility:[facility] [place] Start: 07-15-2022 End: 07-15-2022 Patient encounter procedure Ivana Hernandez [facility] [place] Start: 07-14-2022 ambulatory SEBASTIÁN E LANDY Facili ty:[facility] [place] Start: 07-01-2022 End: 07-02-2022 ambulatory SEBASTIÁN BILL Facility:[facility] [place] Start: 07-01-2022 End: 07-01-2022 Patient encounter procedure SEBASTIÁN BILL [facility] Start: 07-01-2022 End: 07-02-2022 ambulatory Ivana Hernandez Facility:[facility] [place] Start: 07-01-2022 End: 07-01-2022 Patient encounter procedure Ivana Hernandez [facility] Start: 06-19-2022 End: 06-19-2022 ambulatory JIM LANDA VILMAKurtTANYAYaquelin Facility: Start: 06-17-2022 End: 06-18-2022 ambulatory CARY GUTIERREZ [facility] Start: 06-17-2022 End: 06-17-2022 Subsequent [facility] Start: 06-15-2022 End: 06-16-2022 ambulatory CARY GUTIERREZ [facility] Start: 06-15-2022 End: 06-15-2022 Subsequent hospital [facility] Start: 06-12-2022 End: 06-13-2022 ambulatory CARY GUTIERREZ [facility] Start: 06-12-2022 End: 06-12-2022 Subsequent hospital [facility] Start: 06-10-2022 End: 06-11-2022 ambulatory SG TOBAR [facility] Start: 06-10-2022 End: 06-10-2022 Subsequent hospital visit by physician ESTRELLITA [facility] Start: 06-09-2022 End: 06-10-2022 ambulatory CARY GUTIERREZ [facility] Start: 06-09-2022 End: 06-09-2022 Subsequent [facility] Start: 06-07-2022 End: 06-08-2022 ambulatory CARY GUTIERREZ [facility] Start: 06-07-2022 End: 06-07-2022 Subsequent hospital visit by physician MTHZ [facility] Start: 06-02-2022 End: 06-03-2022 Emergency department patient visit Oz Beckford Jr Facility:[facility] Start: 06-02-2022 End: 06-03-2022 Emergency department patient visit II Kilo Chavez Work Phone: [facility] Work Phone: Start: 05-20-2022 End: 05-20-2022 ambulatory EMERGENCY MANAGER FOZIA AICHHOLZ Facility:[facility] Start: 05-05-2022 End: 05-05-2022 ambulatory Johann Dolan Facility:[facility] Start: 05-05-2022 End: 05-05-2022 ambulatory II Kilo Chavez Work Phone: [facility] Work Phone: Start: 05-05-2022 End: 05-05-2022 Patient encounter procedure II Kilo Chavez Work Phone: [facility] [address] Work Phone: Start: 05-04-2022 End: 05-05-2022 ambulatory EMERGENCY MANAGER FOZIA AICHHOLZ Facility:[facility] Start: 02-25-2022 End: 02-26-2022 ambulatory EMERGENCY MANAGER FOZIA AICHHOLZ Facility:[facility] Start: 02-11-2022 End: 02-11-2022 ambulatory EMERGENCY MANAGER FOZIA AICHHOLZ Facility:[facility] Start: 01-30-2022 End: 01-31-2022 ambulatory EMERGENCY MANAGER FOZIA AICHHOLZ Facility:[facility] Start: 01-26-2022 End: 01-27-2022 ambulatory EMERGENCY MANAGER FOZIA AICHHOLZ Facility:[facility] Start: 01-16-2022 End: 01-17-2022 ambulatory EMERGENCY MANAGER FOZIA AICHHOLZ Facility:[facility] Start: 01-02-2022 ambulatory Silvia (Pcna)( Hist) Gross [facility] Start: 12-31-2021 End: 12-31-2021 ambulatory EMERGENCY MANAGER FOZIA AICHHOLZ Facility:[facility] Start: 12-22-2021 End: 12-23-2021 ambulatory EMERGENCY MANAGER FOZIA AICHHOLZ Facility:[facility] Start: 12-04-2021 End: 12-05-2021 ambulatory JIM TOBAR Facility:[facility] Start: 10-29-2021 End: 10-30-[address] KILO CHAVEZ Facility:[facility] Start: 08-06-2020 End: 08-06-2020 Patient encounter procedure Pipe Sanchez Work Phone: -Pre-Surgical Testing Procedures Date Procedure Procedure Detail Performing Clinician Start: 10-26-2022 Urodynamic studies Ivana Georgese Start: 09-25-2022 Esophagogastroduodenoscopy PHYSICIAN NO FAMILY Start: 06-15-2022 Sodium serum plasma or whole blood Jose G Gutierrez ECD - EMERGENCY MANAGER Work Phone: Start: 06-12-2022 Sodium serum plasma or whole blood Jose G Gutierrez ECD - EMERGENCY MANAGER Work Phone: Start: 06-10-2022 Assay of thyroid stimulating hormone tsh Sg Tobar MD Work Phone: Start: 06-10-2022 Lipid panel Sg Tobar MD Work Phone: Start: 06-09-2022 Comprehensive metabolic panel Cary richard ECD - EMERGENCY MANAGER Work Phone: Start: 06-07-2022 Urinalysis microscopic only Cary julio ECD - EMERGENCY MANAGER Work Phone: Start: 06-07-2022 Urnls dip stick/tablet rgnt auto w/o microscopy Cary Gutierrez ECD - EMERGENCY MANAGER Work Phone: Start: 06-02-2022 SARS Antigen (LFIA) II Kilo Chavez Work Phone: Start: 05-13-2012 Cystourethroscopy with dilation of urethral stricture Ivana Georgese Appendectomy Ivana Lue Arthroplasty of right shoulder Ivana Lue Bilateral cataracts (disorder) Ivana Lue Colonoscopy Ivana Lue Hysterectomy Ivana Lue Ligation of fallopian tube K ashley Hernandez Plan of Treatment Date Care Activity Detail Author Start: 09-25-2022 [facility] Start: 05-05-2022 [facility] Start: 12-04-2021 Influenza vaccination INFLUENZA (#1) [facility] Start: 11-03-2021 Influenza vaccination Flu vaccine (# 1) [facility] Start: 04-05-2021 ADVANCE DIRECTIVE DISCUSSION ADVANCE DIRECTIVE DISCUSSION [facility] Start: 04-05-2021 DEPRESSION ASSESSMENT DEPRESSION ASS ESSMENT [facility] Start: 2006 BONE DENSITY BONE DENSITY [facility] Start: 2006 PNEUMOCOCCAL: 65+ (1 - PCV) PNEUMOCOCCAL: 65+ (1 - PCV) [facility] Start: 1991 SHINGRIX VACCINE (1 of 2) SHINGRIX VACCINE (1 of 2) [facility] Start: 1986 DIABETES SCREEN DIABETES SCREEN [facility] Start: 1960 DTaP/Tdap/Td vaccine (1 - Tdap) DTaP/Tdap/Td vaccine (1 - Tdap) [facility] Start: 1960 Urine microalbumin profile DTAP,TDAP,TD (1 - Tdap) [facility] Start: 1941 COVID-19 VACCINE (#1) COVID-19 VACCI NE (#1) [facility] Aldolase measurement [facility] Angiotensin converti ng enzyme [Enzymatic activity/volume] in Serum or Plasma [facility] C reactive protein [Mass/volume] in Serum or Plasma [facility] End: 06-07-2022 Culture, Urine [facility] Work Phone: Comment on above: Once for 1 Occurrenc es starting 06/07/2022 until 06/07/2022 Homogenous nuclear A b pattern [Titer] in Serum [facility] Nuclear Ab [Titer] i n Serum [facility] Parathyrin related protein [Moles/volume] in Serum or Plasma [facility] Patient Education Esophageal Dil ation Hiatal Hernia (DC) [facility] Work Phone: Patient referral [facility] Work Phone: Immunizations Immunization Date Immunization Notes Care Provider Rosio paris 04-03-2022 SARS-CoV-2 (COVID-19 ) [id number] Ivana Lue [facility] 12-22-2021 influenza virus vaccine, unspecified formulation Ivana Lue [facility] 12-17-2021 influenza virus vaccine, unspecified formulation Ivana Lue [facility] 08-07-2021 SARS-CoV-2 mRNA (pnhhgggqtmd-impu-rhdvt se) vaccine Ivana Lue [facility] 01-10-2021 SARS-CoV-2 (COVID-19 ) mRNA BNT-162b2 vax Ivana Lue [facility] 12-18-2020 influenza virus vaccine, unspecified formulation Ivana Lue [facility] 05-20-2020 COVID-19 mRNA, Comirnaty (Pfizer) II Kilo Chaevz Work Phone: [facility] Comment on above: Result Comment: 2022: [id number] 04-29-2020 COVID-19 mRNA, Comirnaty (Pfizer) II Kilo Chavez Work Phone: [facility] Comment on above: Result Comment: 2022: [id number] 12-28-2019 influenza virus vaccine, unspecified formulation Ivana Lue [facility] 12-28-2017 influenza virus vaccine, unspecified formulation Ivana Lue [facility] 01-07-2017 influenza virus vaccine, unspecified formulation Ivana Lue [facility] 12-12-2015 influenza virus vaccine, unspecified formulation Ivana Lue [facility] 12-07-2014 influenza virus vaccine, unspecified formulation Ivana Lue [facility] 12-07-2014 pneumococcal conjuga te vaccine, 13 valent Ivana Lue [facility] 01-20-2012 influenza, whole Ivana Lue [facility] Payers Date Payer Category Payer Self-pay [id number] 2019 Unknown MMO MMO MEDICARE SUPPLEMENT [id number] 2019-Present [phone] [address] [place] [address] Indemnity [id number] 2018 Unknown [id number] 2006 Medicare MEDICARE MEDICAR E A AND B [id number] 2006-Present [phone] [address] [address] [place] [address] Medicare [id number] 1959 Medicare [id number] 1959 Unknown [id number] [facility] 1941 Unknown [id number] 2.16.840.1.178325.3.579.2.173 1941 Unknown [id number] 2.16.840.1.680586.3.579.2.173 1941 Unknown [id number] 2.16.840.1.792234.3.579.2.173 1941 Unknown [id number] 2.16.840.1.162337.3.579.2.593 1941 Unknown [id number] 2.16.840.1.502084.3.579.2.593 1941 Unknown [id number] 2.16.840.1.250693.3.579.2.593 1941 Unknown [id number] 2.16.840.1.775099.3.579.2.593 1941 Unknown [id number] 2.16.840.1.335073.3.579.2.593 1941 Unknown [id number] 2.16.840.1.796804.3.579.2.593 1941 Unknown [id number] 2.16.840.1.742758.3.579.2.593 1941 Unknown [id number] 2.16.840.1.180645.3.579.2.593 1941 Unknown [id number] 2.16.840.1.907440.3.579.2.593 1941 Unknown [id number] 2.16.840.1.555880.3.579.2.593 1941 Unknown [id number] 2.16.840.1.757945.3.579.2.593 1941 Unknown [id number] 2.16.840.1.157042.3.579.2.593 1941 Unknown [id number] 2.16.840.1.790156.3.579.2.593 1941 Unknown [id number] 2.16.840.1.322574.3.579.2.593 1941 Unknown [id number] 2.16.840.1.158482.3.579.2.593 1941 Unknown [id number] 2.16.840.1.524719.3.579.2.593 1941 Unknown [id number] 2.16.840.1.773109.3.579.2.727 1941 Unknown [id number] 2.16.840.1.322240.3.579.2.727 1941 Unknown [id number] 2.16.840.1.880176.3.579.2.727 1941 Unknown [id number] 2.16.840.1.715829.3.579.2.727 1941 Unknown [id number] 2.16.840.1.595830.3.579.2.727 1941 Unknown [id number] 2.16.840.1.733439.3.579.2.727 1941 Unknown [id number] 2.16.840.1.805065.3.579.2.727 1941 Unknown [id number] 2.16.840.1.115471.3.579.2.727 1941 Unknown [id number] 2.16.840.1.467013.3.579.2.727 1941 Unknown [id number] 2.16.840.1.320124.3.579.2.727 1941 Unknown [id number] 2.16.840.1.523418.3.579.2.727 1941 Unknown [id number] 2.16.840.1.237306.3.579.2.727 1941 Unknown [id number] 2.16.840.1.483375.3.579.2.727 1941 Unknown [id number] 2.16.840.1.602968.3.579.2.727 1941 Unknown [id number] 2.16.840.1.189035.3.579.2.72 1941 Unknown [id number] 2.16.840.1.120610.3.579.2.72 1941 Unknown [id number] 2.16.840.1.327965.3.579.2.72 1941 Unknown [id number] 2.16.840.1.181124.3.579.2.72 1941 Unknown [id number] 2.16.840.1.486671.3.579.2. 1941 Unknown [id number] 2.16.840.1.327165.3.579.2.727 1941 Unknown [id number] 2.16.840.1.080373.3.579.2.727 1941 Unknown [id number] 2.16.840.1.751124.3.579.2.727 1941 Unknown [id number] 2.16.840.1.835632.3.579.2.727 1941 Unknown [id number] 2.16.840.1.929634.3.579.2.1259 1941 Unknown [id number] 2.16.840.1.071677.3.579.2.1259 1941 Unknown [id number] 2.16.840.1.288162.3.579.2.1259 1941 Unknown [id number] 2.16.840.1.697303.3.579.2.1259 Unknown [id number] 2.16.840.1.090255.3.579.2.531 Unknown [id number] 2.16.840.1.691090.3.579.2.531 Unknown [id number] 2.16.840.1.042861.3.579.2.531 Unknown [id number] 2.16.840.1.050095.3.579.2.531 Social History Date Type Detail Facility Tobacco smoking status HIIS Unknown if ever smoked [facility] Start: 1940 Sex Assigned At Female Vivien [facility] Start: 07-29-2018 End: 07-15-2022 Tobacco smoking status NHIS Ex-smoker [facility] History of tobacco use Current smoker [facility] Start: 07-29-2018 Tobacco use and exposure Smokeless tobacco non-user [facility] Start: 06-13-2020 Alcohol intake Current drinke r of alcohol (finding) [facility] Start: 07-29-2018 History SDOH Alcohol Comment thisks may have a drink about 4-5 times per week [facility] Start: 1940 Sex Assigned At Not on file [facility] Start: 11-28-2020 Tobacco smoking status HIIS Never smoked tobacco (finding) [facility] Tobacco smoking status HIIS Tobacco smoking consumption unknown [facility] [employer] Phone: Tobacco smoking status Never [facility] Sex Assigned At Female [facility] Goals Date Patient Goal Desired Activity /State Functional Status Date Assessment Result Facility 11-25-2022 Functional Status N/A [facility] 08-07-2022 Functional Status N/A [facility] 07-15-2022 Functional Status N/A [facility] 07-01-2022 Functional Status N/A [facility] Clinical Notes 01-02-2022 to 11-25-2022 Silvia Kumar 01/02/2022 9:32 AM EDT Note Date & Type Note Facility 11-25-2022 Hospital Discharg e instructions Patient Education 11/25/2022 10:04:46 Urinary Tract Infection, Adult, Iwqf-ek-Vznd Urinary Tract Infection, Adult A urinary tract [...] Follow these instructions at home: Medicines Take uaye-zea-gdplmoj and prescription medicines only as told by [...] provider. Document Revised: 11/01/2020 Document Reviewed: 11/01/2020 Evalve Patient Education 2022 [employer]. Follow Up Care 11/10/2022 14:10:04 With:David WELLS, JACKY Barrera, URO Address: When:Within 1 Month(s) Comments:w/ Cath [facility] 10[facility]26-2022 Note [id number]:[id number] [facility] 09-25-2022 Procedure note [facility] 08-07-2022 Hospital Discharg e instructions Patient [...] your health care provider. General instructions Take lwwv-swp-iacfypp and prescription medicines only as told by [...] Document Reviewed: 12/05/2020 Elsevier Patient Education 2022 [employer]. Follow Up Care 07/15/2022 11:57:20 With:David WELLS, JACKY Barrera, URO Address: When: Unknown [facility] [place] 07-15-2022 Hospital Discharg e instructions [...] your health care provider. General instructions Take ebcb-bwd-jsghsdq and prescription medicines only as told by [...] 10/03/2007 Document Revised: 04/04/2018 Document Reviewed: 04/04/2018 Evalve Patient Education 2020 [employer]. Follow Up Care 07/01/2022 13:04:43 With:David WELLS, JACKY Barrera, URO Address: [address] [place] [place] [address] [phone] When: Unknown [facility] 07-01-2022 Note HPI Staff Jamari is a 82 y.o. female new patient here for neurogenic bladder and urinary retention. Referral by Fozia Doll CNP. Pt presented to [facility] on 06/02/22 due to altered mental [...] Illness Pt is here for Referral by Family [facility] due to Urinary Retention - external labs, cultures, CT scan and notes. Pt has seen Dr. Chaney in 2012 - reviewed prior office notes Reviewed CT [...] urine, unspecified) Pt had Ribeiro placed at [facility] on 06/02/2022 Pt had Ribeiro changed on 06/11/2022 at [facility] Pt has not had a voiding [...] on CT Scan done on 06/02/2022 at [facility] Pt states that she has known about it for years, states it is stable. Declined metabolic workup at this time Cont to monitor 3. UTI (urinary tract infection) (N39.0: Urinary tract infection, site not specified) UTI (asymptomatic) 05/05/2022[place] 06/07/2022-[facility] - ribeiro exchange Denies lifelong hx [...] such as MS Suspected per cysto at [facility] in 2019 for gross hematuria. 3+ trabeculations. [...] Marilee loomis, accurate (more content not included)... [facility] Comment on above: Result Comment: Elec [...] your health care provider. General instructions Take rqgw-pqf-pygsjnt and prescription medicines only as told by [...] 10/03/2007 Document Revised: 04/04/2018 Document Reviewed: 04/04/2018 Evalve Patient Education 2020 [employer]. Follow Up Care 06/24/2022 08:16:27 With:David WELLS, JACKY Barrera, URO Address: When: Unknown [facility] [place] 01-02-2022 Note Patient Outreach (DAVIN SHORT) FIDEPAULT ([id number]) 1940 F Date Time Provider Department 01/02/22 SILVIA DE LOS SANTOS (PCNA)(HIST) HEMACO During your visit today, we recorded the following information about you: Silvia De Los Santos 01/02/2022 9:34 AM Signed [facility] Provider Action/FYI Received referral from [facility] for MAMMOGRAM Screening. Patient is outside of screening age. Will close encounter and end navigation. Jamari Elizalde was contacted to discuss their cancer screening needs. Pt identified by name and . Cancer Screening Care Gap Addressed: Breast Cancer Z12.31 Patient does not have appointment scheduled. Order pended. Outreach Outcome: iQuest Analyticst message sent Payer: Insurance: Payor: MEDICARE / [...] by SILVIA DE LOS SANTOS on 01/02/22 [facility] 01-02-2022 Note HNO ID: [id number] Author: Silvia De Los Santos Service: ? Author Type: ? Type: Progress Notes Filed: 01/02/2022 9:34 AM Note Text: Summary: Mammogram Screening [facility] Provider Action/CHELSEA Received referral from [facility] for MAMMOGRAM Screening. Patient is outside of [...] Sent to Provider/Practice: JASMEET De Los Santos [facility] 01-02-2022 History of Presen t illness Narrative Summary: Mammogram Screening [facility] Provider Action/CHELSEA Received referral from [facility] for MAMMOGRAM Screening. Patient is outside of screening age. Will close encounter and end navigation. Jamari Elizalde was contacted to discuss their cancer screening needs. Pt identified by name and . Cancer Screening Care Gap Addressed: Breast Cancer Z12.31 Patient does not have appointment scheduled. Order pended. Outreach Outcome: cielo24hart message sent Payer: Insurance: Payor: MEDICARE / Plan: MEDICARE A AND B / Product Type: Medicare / Payor: MEDICARE / Plan: MEDICARE A AND B / Product Type: Medicare / Discussed with: Niharika Maharaj CNP Follow Up Actions: N/A Barriers: OUTSIDE SCREENING AGE Results Sent to Provider/Practice: JASMEET De Los Santos documented in this encounter [facility] Evaluation + Plan note Future Appointments Appointment Date:07/15/2022 01:00:00 PM Scheduled Provider: Location:[facility] Appointment Type:URO Nurse Visit [facility] Evaluation + Plan note Future Appointments Appointment Date:08/07/2022 10:15:00 AM Scheduled Provider:Ivana Hernandez MD Location:[facility] Appointment Type:URO Office Visit [facility] Evaluation + Plan note Future Appointments Appointment Date:08/26/2022 08:30:00 AM Scheduled Provider: Location:[facility] Appointment Type:URO Nurse Visit [facility] Evaluation + Plan note Future Appointments Appointment Date:11/10/2022 02:00:00 PM Scheduled Provider: Location:[facility] Appointment Type:URO Nurse Visit [facility] Evaluation + Plan note Future Appointments Appointment Date:11/10/2022 02:00:00 PM Scheduled Provider: Location:[facility] Appointment Type:URO Nurse Visit Diagnostic Tests PendingUrine Culture 10/12/22 [facility] Evaluation + Plan note Future Appointments Appointment Date:12/23/2022 10:00:00 AM Scheduled Provider: Location:[facility] Appointment Type:URO Nurse Visit [facility] Evaluation + Plan note Future Appointments Appointment Date:01/19/2023 01:00:00 PM Scheduled Provider: Location:[facility] Appointment Type:URO Nurse Visit [facility] Evaluation + Plan note Future Appointments Appointment Date:04/13/2023 01:00:00 PM Scheduled Provider: Location:[facility] Appointment Type:URO Nurse Visit [facility] Evaluation + Plan note Future Appointments Appointment Date:05/11/2023 01:00:00 PM Scheduled Provider: Location:[facility] Appointment Type:URO Nurse Visit [facility] Evaluation note No Assessments Infor mation Available [facility] Evaluation note No assessment inform ation available [facility] Work Phone: Evaluation note Diagnosis Onset Date Weight loss acute [facility] Work Phone: Hospital course Narrative No data available for this section [facility] Hospital Discharge instructions No data available for this section [facility] Hospital Discharge instructions Additional Instructions DISCHARGE INSTRUCTIONS [...] if you have any problems. -[facility] number [phone] Work [facility]: Progress note No data available for this section [facility] Advance Directives No Advanced Directives Records [...] Relationship Condition Age at Onset Recorded Date/T jocleyne father Heart disease Unknown Not Specified Malignant neoplasm of breast Unknown Additional Source Comments Source Comments (unrecognize d section and content) In the event this informatio n is protected by the Federal Confidentiality of Alcohol and Drug Abuse Patient Records regulations: The Federal rules restrict any use of the information to criminally investigate or prosecute any alcohol or drug abuse patient.[facility] Care Teams (unrecognized sec tion and content) 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 Relationship Specialty Start Date End Date Kilo Chavez II [address] [facility] [address] [place] [address] PCP - General Internal Medicine 06/30/18 Kilo Chavez II [address] [place] [address] [place] [address] Referring Internal Medicine 09/30/18 Team Status: Inactive [...] Status: Active Member Role Status Dates Fozia Whitley Ekaterina Primary Care Provider Active Team Status: Inactive Member Role Status Dates Pipe Sanchez MD Attending Provider Active Fozia Tobar Primary Care Provider Active INFORMATION SOURCE (unrecogn ized section and content) DATE CREATED AUTHOR 01/06/2022 [facility] DATE CREATED AUTHOR AUTHOR'S ORGANIZ ATION 06/18/2022 [facility] DATE CREATED AUTHOR AUTHOR'S ORGANIZ ATION 09/12/2022 [facility] DATE CREATED AUTHOR AUTHOR'S ORGANIZ ATION 10/20/2022 [facility] DATE CREATED AUTHOR AUTHOR'S ORGANIZ ATION 06/22/2023 [facility] DATE CREATED AUTHOR AUTHOR'S ORGANIZ ATION 08/07/2023 [facility] EPIC Goals (unrecognized section [...] BE BASED ON THE PRIMARY CLINICAL RECORDS. [employer] provides no warranty or guarantee of the accuracy or completeness of information in this document.
[2023-08-10 22:56] LABS: Bilirubin Urine NEGATIVE (NEGATIVE); Blood Urine SMALL (NEGATIVE); Clarity Urine CLEAR (CLEAR); Color Urine YELLOW (YELLOW); Glucose Urine UA NEGATIVE (NEGATIVE); Ketones Urine TRACE mg/dL (NEGATIVE); Leukocyte Esterase Urine MODERATE (NEGATIVE); Nitrite Urine NEGATIVE (NEGATIVE); Protein Urine 100 mg/dL (NEG/TRACE)
== END 2023-08-10 20:52 | disposition home or self-care (01) ==
LOC: LAB 20:51
PROVIDERS: PCP Nurse Practitioner
DX: I11.0 Hypertensive heart disease with heart failure (principal); I50.41 Acute combined systolic (congestive) and diastolic (congestive) heart failure; N31.9 Neuromuscular dysfunction of bladder, unspecified; F33.42 Major depressive disorder, recurrent, in full remission; M89.661 Osteopathy after poliomyelitis, right lower leg; N30.00 Acute cystitis without hematuria; J96.00 Acute respiratory failure, unspecified whether with hypoxia or hypercapnia
CPT/HCPCS: 81003; 87086